=== PATIENT | female | born 1965 | race Caucasian/White ===

== ENCOUNTER 2023-09-14 10:14 | Outpatient (OUT) | payer OTHER, SELFPAY ==
--- NOTE | 2023-09-14 10:32 | CT_ITS ---
[place] [id number] Patient Name: DOROTHY ADAMS MRN: [id number] date: 1965 Sex: F Assigned Patient Location: CT Current Patient Location: CT Accession/Order Number: [id number] Exam Date: 09/14/2023 10:24 Report Date: 09/14/2023 16:25 At the request of: CARY BENTON Procedure: CT chest wo con EXAM: CT chest wo con; [id number] REASON FOR EXAM: Solitary Pulmonary Nodule R91.1 TECHNIQUE: Helical CT images of the chest were obtained without contrast. Multiplanar reformats and maximum intensity projection images were generated at the scanner. Dose reduction technique used: Automated exposure control and/or adjustment of the mA and/or kV according to patient size and/or use of iterative reconstruction technique. COMPARISON: CT chest 02/21/2023. FINDINGS: Note: Compared with contrasted CT exams, noncontrast images are less sensitive for the detection of various types of soft tissue, solid organ, and vascular pathologies. Chest: Support devices: None. Visualized Thyroid: No nodules. Chest wall: Within normal limits. Prabha/mediastinum/esophagus: No mass. Thoracic lymph nodes: No enlarged supraclavicular, mediastinal, hilar or axillary lymph nodes. Heart and vasculature: -No pericardial effusion or aortic aneurysm. -Moderate coronary artery calcifications. Visualized portions of the upper abdomen: Single benign calcified granulomatous calcification in the spleen. Musculoskeletal: No acute abnormality or suspicious osseous lesion. Lungs/airways: -Irregular nodule in the posterolateral aspect of the right upper lobe measuring 6 mm mean diameter (series 4 image 32), not significantly changed compared with 02/21/2023. -Numerous benign calcified granulomas are present. -No evidence of pneumonia. -Minimal left basilar atelectasis and/or scarring. -The central airways are patent. Pleura: No pleural effusion or pneumothorax. CT/CT chest wo con IMPRESSION: 1. Irregular 6 mm nodule in the right upper lobe is not significantly changed compared with 02/21/2023. Recommend returning to low-dose screening chest CT in 12 months. 2. No new or enlarging pulmonary nodules. Electronically authenticated by: DANO MENSAH Date: 09/14/2023 16:25
== END 2023-09-14 10:15 | disposition home or self-care (01) ==
LOC: CT 10:14
PROVIDERS: PCP Family Medicine; Visit Provider Family Medicine
DX: R91.1 Solitary pulmonary nodule (principal)
CPT/HCPCS: 71250

== ENCOUNTER 2023-10-04 09:51 | Inpatient (IN) | payer OTHER, SELFPAY ==
[2023-10-04] VITALS (31 sets, daily range): BP systolic 130–149; BP diastolic 65–85; PULSE 144–156; RESP 18–35; TEMP 36.5–38.8; O2SAT 80–97; BMI 39.1; BMI 42.4
--- NOTE | 2023-10-04 09:56 | ECG_ITS ---
The [facility] Test Date: 2023-10-04 Pat Name: DOROTHY ADAMS Department: Room: - Gender: Female Therapist: : 1965 Requested By: CARY BENTON Order Number: [id number] Reading MD: CARY BENTON Measurements Intervals [place] Rate: 156 P: 254 OR: 126 QRS: 270 QRSD: 74 T: -82 QT: 362 QTc: 450 Interpretive Statements 1320 Rapid junctional rhythm [address] depression, possible subendocardial injury 4364 Twave abnormality, possible anterolateral ischemia 4664 Twave abnormality, possible inferior ischemia 5120 Possible right ventricular hypertrophy 8003 Consistent with pulmonary disease 9150 abnormal ECG No previous ECG available for comparison Electronically Signed On 10-05-2023 6:21:53 EST by CARY BENTON
--- NOTE | 2023-10-04 09:56 | XR_ITS ---
The [address] [address] Patient Name: DOROTHY ADAMS MRN: [id number] date: 1965 Sex: F Assigned Patient Location: ER Current Patient Location: ED.MAIN Accession/Order Number: [id number] Exam Date: 10/04/2023 10:30 Report Date: 10/04/2023 10:49 At the request of: DAVID CAVANAUGH Procedure: XR chest 1V EXAM: XR chest 1V HISTORY: Weakness. COMPARISON: CT chest dated 09/14/2023. TECHNIQUE: AP erect portable chest radiograph performed. FINDINGS: The trachea is midline. Stable mild enlargement of the cardiac silhouette. Mild atheromatous calcification at the aortic arch. There are numerous small nodules scattered within the chest bilaterally, most of which are calcified on the previous CT examination of the chest. There is new mild patchy airspace disease within the right lower chest. There is no pleural effusion or pulmonary vascular congestion. There is no pneumothorax. The bony structures are unremarkable. XR/XR chest 1V IMPRESSION: New mild patchy airspace disease within the right lower chest. Numerous small nodules scattered within the chest bilaterally, most of which are calcified on the previous CT examination of the chest. Electronically authenticated by: JANET EDWARD Date: 10/04/2023 10:49
--- NOTE | 2023-10-04 09:58 | ED.GENADUL1 ---
HPI - General Adult General Chief complaint: Back Pain/Injury Stated complaint: BACK PAIN Time Seen by Provider: 10/04/23 09:52 Source: patient Mode of arrival: ambulance History of Present Illness HPI narrative: 58-year-old female presented for she's weak and couldn't get up. She was weak all night. She weighed herself on the floor about midnight and wasn't able to get herself up until about 3 AM. She got herself into a chair and spent the rest of the night in the chair and then she called the paramedics and they brought her here. She was noted to be tachycardic by the paramedics and the patient states she thinks she is dehydrated. Her whole body hurts but there was no injury. She has chronic back pain. She was noted to have a fever upon arrival. Related Data Home Medications Medication Instructions Recorded Confirmed apixaban 5 mg tablet (Eliquis) 5 mg PO Q12H 10/04/23 10/04/23 clopidogrel 75 mg tablet 75 mg PO DAILY 10/04/23 10/04/23 diclofenac sodium 75 mg 75 mg PO Q12H 10/04/23 10/04/23 tablet,delayed release digoxin 250 mcg (0.25 mg) tablet 250 mcg PO Q12H 10/04/23 10/04/23 furosemide 40 mg tablet 40 mg PO DAILY 10/04/23 10/04/23 insulin aspart U-100 100 unit/mL 1 sliding scale dose subcut DAILY 10/04/23 10/04/23 (3 mL) subcutaneous pen (Novolog FlexPen U-100 Insulin aspart) insulin glargine 100 unit/mL (3 unit subcut DAILY 10/04/23 mL) subcutaneous pen (Basaglar KwikPen U-100 Insulin) lisinopril 10 mg tablet 10 mg PO DAILY 10/04/23 10/04/23 metoprolol tartrate 25 mg tablet 25 mg PO Q12H 10/04/23 10/04/23 tizanidine 4 mg tablet 4 mg PO Q12H PRN muscle spasticity 10/04/23 10/04/23 Allergies Allergy/AdvReac Type Severity Reaction Status Date / Time Sulfa (Sulfonamide AdvReac Severe Nausea Verified 10/04/23 09:57 Antibiotics) Review of Systems ROS Narrative A ten point review of systems is negative except as noted above. Musculoskeletal Reports: back pain Exam Narrative Exam Narrative: Nurses note and vital signs reviewed and patient is not hypoxic. General: The patient appears well and in no apparent distress. Patient is resting comfortably on cart. Skin: Warm, dry, no pallor noted. There is no rash noted. Head: Normocephalic, atraumatic Eye: Normal conjunctiva, no drainage Ears, Nose, Mouth, and Throat: oral mucosa is slightly dry. Nares patent. Cardiovascular: Regular Rate and Rhythm, tachycardic Respiratory: Patient is in no distress, no accessory muscle use, lungs are clear to auscultation, no wheezing, rales or rhonchi Back: no bruise or rash. Old healed surgical scar present. GI: not tender Musculoskeletal: The patient has no evidence of calf tenderness, no pitting edema, symmetrical pulses noted bilaterally Neurological: A&O, normal speech Psychiatric: Cooperative Constitutional Vital Signs, click to edit/add: Last Vital Signs Temp 102 F H 10/04/23 09:53 Pulse 155 H 10/04/23 09:53 Resp 24 10/04/23 09:53 BP 144/65 H 10/04/23 09:53 Pulse Ox 96 10/04/23 09:53 O2 Del Method Room Air 10/04/23 09:53 Course Vital Signs Vital signs: Vital Signs Temperature 102 F H 10/04/23 09:53 Pulse Rate 155 H 10/04/23 09:53 Respiratory Rate 24 10/04/23 09:53 Blood Pressure 144/65 H 10/04/23 09:53 Pulse Oximetry 96 10/04/23 09:53 Oxygen Delivery Method Room Air 10/04/23 09:53 Temperature 102 F H 10/04/23 09:53 Pulse Rate 155 H 10/04/23 09:53 Respiratory Rate 24 10/04/23 09:53 Blood Pressure 144/65 H 10/04/23 09:53 Pulse Oximetry 96 10/04/23 09:53 Oxygen Delivery Method Room Air 10/04/23 09:53 Medical Decision Making [facility] Narrative Medical decision making narrative: pneumonia is identified with a white count of twenty-five thousand. Blood cultures were obtained and she was given IV Rocephin and Zithromax and is being admitted. Creatinine also elevated at 3.9. She is being given IV fluids and Gallegos catheter is inserted. Case discussed with Dr. Santos and the patient will be admitted. Treatment diagnosis and disposition were discussed with the patient. initial troponin elevated but this is likely due to the kidney issue. Repeat pending. Differential Diagnosis Differential Diagnosis: dehydration, rhabdomyolysis, pneumonia Lab Data Lab results reviewed: Yes I reviewed the patient's lab results Labs: Lab Results 10/04/23 10/04/23 Range/Units 10:20 10:25 WBC 24.9 H (4.0-11.0) 10^3/uL RBC 3.87 L (4.20-5.40) 10^6/uL Hgb 11.1 L (12.0-16.0) g/dL Hct 34.7 L (36.0-48.0) % MCV 89.7 (81.0-99.0) fL MCH 28.7 (26.7-34.0) pg MCHC 32.0 (29.9-35.2) g/dL RDW 16.4 H (11.0-15.0) % Plt Count 146 L (150-450) 10^3/uL MPV 11.5 (9.5-13.5) fL Seg Neuts % (Manual) 91.0 Band Neutrophils % 3.0 (0-5) % Lymphocytes % (Manual) 2.0 L (20.5-60.0) % Monocytes % (Manual) 4.0 (1.7-12.0) % Eosinophils % (Manual) 0.0 L (0.9-7.0) % Basophils % (Manual) 0.0 L (0.2-2.0) % Neutrophils # (Manual) 22.65 H (1.4-6.5) 10^3/uL Band Neutrophils # 0.7 H (0.0-0.3) 10^3/uL Lymphocytes # (Manual) 0.49 L (1.20-3.80) 10^3/uL Monocytes # (Manual) 0.99 H (0.30-0.80) 10^3/uL Eosinophils # (Manual) 0.00 (0.00-0.70) 10^3/uL Basophils # (Manual) 0.00 (0.00-0.10) 10^3/uL Anisocytosis 1+ [place] Cells 1+ Sodium 133 L (136-145) mmol/L Potassium 3.4 L (3.5-5.1) mmol/L Chloride 97 L (98-107) mmol/L Carbon Dioxide 20.4 L (21.0-32.0) mmol/L Anion Gap 19.0 BUN 43.0 H (7.0-18.0) mg/dL Creatinine 3.92 H (0.55-1.02) mg/dL Est GFR ( Amer) 14 L (>=60) Est GFR (Non-Af Amer) 12 L (>=60) BUN/Creatinine Ratio 11.0 Glucose 133 H (74-106) mg/dL Lactate 2.1 H (0.4-2.0) mmol/L Calcium 7.5 L (8.5-10.1) mg/dL Total Creatine Kinase 116 (26-192) U/L Troponin I High Sens 132.7 H* (4.0-51.3) pg/mL SARS-CoV-2 (PCR) Negative (NEGATIVE) Imaging Data Chest x-ray: Radiologist's impression: Procedure: XR chest 1V EXAM: XR chest 1V HISTORY: Weakness. COMPARISON: CT chest dated 09/14/2023. TECHNIQUE: AP erect portable chest radiograph performed. FINDINGS: The trachea is midline. Stable mild enlargement of the cardiac silhouette. Mild atheromatous calcification at the aortic arch. There are numerous small nodules scattered within the chest bilaterally, most of which are calcified on the previous CT examination of the chest. There is new mild patchy airspace disease within the right lower chest. There is no pleural effusion or pulmonary vascular congestion. There is no pneumothorax. The bony structures are unremarkable. IMPRESSION: New mild patchy airspace disease within the right lower chest. Numerous small nodules scattered within the chest bilaterally, most of which are calcified on the previous CT examination of the chest. Electronically authenticated by: JANET EDWARD Date: 10/04/2023 10:49 ECG Data Attestation: I personally reviewed and interpreted this ECG as follows: (EKG on my interpretation shows sinus tachycardia) Discharge Plan Discharge Chief Complaint: Back Pain/Injury Clinical Impression: Acute kidney injury, Pneumonia Patient Disposition: Admitted As Inpatient Time of Disposition Decision: 11:34 Condition: Fair Referrals: Paul Santos MD [Primary Care Provider] - 1 week
[2023-10-04] MEDS: ACETAMINOPHEN 325 MG TABLET 650 MG PO (10:34)
[2023-10-04] MEDS: 0.9 % SODIUM CHLORIDE 1,000 ML 1000 ML IV ×4 (10:35→18:37)
[2023-10-04 10:48] LABS: Hematocrit 34.7 % (36.0-48.0); Hemoglobin 11.1 g/dL (12.0-16.0); Mean Corpuscular Hemoglobin 28.7 pg (26.7-34.0); Mean Corpuscular Volume 89.7 fL (81.0-99.0); Mean Platelet Volume 11.5 fL (9.5-13.5); Platelet Count 146 10^3/uL (150-450); Red Blood Count 3.87 10^6/uL (4.20-5.40); Red Cell Distribution Width 16.4 % (11.0-15.0); White Blood Count 24.9 10^3/uL (4.0-11.0)
[2023-10-04 10:54] LABS: Creatine Kinase 116 U/L (26-192)
[2023-10-04 10:58] LABS: Calcium 7.5 mg/dL (8.5-10.1); Carbon Dioxide 20.4 mmol/L (21.0-32.0); Chloride 97 mmol/L (98-107); Estimated GFR (African America 14 (>=60); Estimated GFR (Non-African Ame 12 (>=60); Glucose 133 mg/dL (74-106); Potassium 3.4 mmol/L (3.5-5.1); Sodium 133 mmol/L (136-145)
[2023-10-04 10:59] LABS: Troponin I High Sensitivity 132.7 pg/mL (4.0-51.3)
[2023-10-04 11:03] LABS: Band Neutrophils Absolute 0.7 10^3/uL (0.0-0.3); Lymphocytes Absolute Manual 0.49 10^3/uL (1.20-3.80); Monocytes Absolute Manual 0.99 10^3/uL (0.30-0.80); Segmented Neut Absolute Manual 22.65 10^3/uL (1.4-6.5)
[2023-10-04 11:04] LABS: Anisocytosis 1+; Burr Cells 1+
[2023-10-04 11:25] LABS: Lactate/Lactic Acid 2.1 mmol/L (0.4-2.0)
[2023-10-04] MEDS: CEFTRIAXONE 1,000 MG in 0.9 % SODIUM CHLORIDE 50 ML 100 MG IV (11:25)
[2023-10-04 11:29] LABS: SARS-CoV-2 Ag NEGATIVE (NEGATIVE)
[2023-10-04 11:40] LABS: Bilirubin Urine NEGATIVE (NEGATIVE); Blood Urine MODERATE (NEGATIVE); Clarity Urine CLEAR (CLEAR); Color Urine YELLOW (YELLOW); Glucose Urine UA NEGATIVE (NEGATIVE); Ketones Urine NEGATIVE (NEGATIVE); Leukocyte Esterase Urine LARGE (NEGATIVE); Nitrite Urine NEGATIVE (NEGATIVE); Protein Urine 100 mg/dL (NEG/TRACE); Urobilinogen Urine 0.2 EU/dL (0.2-1.0)
[2023-10-04] MEDS: AZITHROMYCIN 500 MG in 0.9 % SODIUM CHLORIDE 250 ML 250 MG IV (11:55)
[2023-10-04 11:57] LABS: Troponin I High Sensitivity 126.9 pg/mL (4.0-51.3)
[2023-10-04 11:59] LABS: WBC Urine 75-100 #/HPF (NONE SEEN)
[2023-10-04 12:00] LABS: Bacteria Urine LARGE #/HPF (NONE SEEN); Mucus Urine NONE SEEN (NONE SEEN)
[2023-10-04 12:01] LABS: Cast Seen? NONE SEEN #/LPF (NONE SEEN); Crystals Seen? None Seen #/HPF (None Seen); Squamous Epithelial Cell Urine FEW #/LPF (NONE/RARE); Urine Culture Indicated ALREADY ORDERED
--- NOTE | 2023-10-04 12:43 | CA_ITS ---
Patient Name: DOROTHY ADAMS MR#: [id number] : 1965 Exam Date: 10/05/2023 Ordering Doctor: DR Paul Santos . ECHOCARDIOGRAM REPORT PROCEDURE: CA ECHO DOPPLER COMPLETE INDICATIONS: Dyspnea, tachycardia-resolved, hypertension, diabetes COMPARISON: None. DESCRIPTION: COMPLETE ECHOCARDIOGRAM Real-time transthoracic echocardiography with 2D, M-mode, spectral and color flow Doppler performed. QUALITY: Technical quality was good. LEFT VENTRICLE: Normal chamber size. Mild left ventricular hypertrophy. LV EF: Global left ventricular systolic function is normal; visually estimated ejection fraction 60 to 65%. No obvious wall motion abnormalities. DIASTOLIC: Grade II, moderate diastolic dysfunction. ATRIAL SEPTUM: Visually appears intact. LEFT ATRIUM: Normal chamber size. RIGHT ATRIUM: Mild dilatation. RIGHT VENTRICLE: Normal chamber size. Systolic function is difficult to assess but appears reduced. TRICUSPID VALVE: Normal mobility and thickness. Mild regurgitation. Doppler studies reveal mildly (35-45) elevated right sided pressures. RVSP 43 mmHg MITRAL VALVE: Normal mobility and thickness. Moderate mitral annular calcification. Trivial mitral regurgitation. AORTIC VALVE: Normal trileaflet appearance. Mildly calcified aortic valve. Doppler velocity suggests no significant aortic valve stenosis. DVI 0.5, ANGELICA 2.0 cm2. No aortic regurgitation. AORTIC ROOT: Normal diameter and appearance. PULMONIC VALVE: Normal thickness and mobility. No stenosis. Trivial regurgitation. PERICARDIUM: No evidence of pericardial effusion. IVC: IVC is dilated (2.5 cm) with no collapse. CONCLUSION: 1. Global left ventricular systolic function is normal; visually estimated ejection fraction is 60 to 65% 2. Mildly increased left ventricular wall thickness 3. The right ventricle is normal in size with reduced systolic function 4. The right atrium is enlarged 5. Mild tricuspid regurgitation; mildly elevated right ventricular systolic pressure 6. E/E' consistent with volume overload Adult Echocardiography Procedure Report Left Ventricle LVEDD (3.7 - 5.6 cm): 4.68 cm LVESD (2.2 - 4.0 cm): 3.08 cm LVIVS thickness (0.6 - 1.2 cm): 1.19 cm LVPW thickness (0.5 - 1.0 cm): 1.22 cm e': 0.07 m/s E - e': 21.77 LVOT Max Gradient: 3.02 mm[Hg], 2.66 mm[Hg], 2.88 mm[Hg] LVOT Area (cm2): 0.83 m/s, 0.87 m/s Peak Velocity (LVOT): 0.82 m/s, 0.85 m/s, 0.87 m/s Mean Velocity (LVOT): 0.63 m/s LVOT Diameter 2.14 cm Left Atrium LA Volume Index (2D A2C): 29.38 ml/m2 Left Atrium Systolic Dimension: 4.08 cm Mitral Valve MV E to A Ratio: 1.86 Mitral Valve A-Wave Peak Velocity: 0.87 m/s Mitral Valve E-Wave Peak Velocity: 1.61 m/s Right Ventricle Aorta AO Root Diam: 3.44 cm Ascending Ao Diam: 2.26 cm Aortic Valve AoV Area (Peak Evan): 1.84 cm2, 1.80 cm2, 1.92 cm2, 1.92 cm2 AoV Area (VTI): 1.99 cm2, 1.87 cm2 Peak Velocity(Antegrade Flow): 1.62 m/s Peak Gradient(Antegrade Flow): 10.55 mm[Hg] Mean Velocity(Antegrade Flow): 1.09 m/s Mean Gradient(Antegrade Flow): 5.42 mm[Hg] Velocity Time Integral: 30.41 cm Tricuspid Valve Peak Velocity (Regurgitant Flow): 2.71 m/s Pulmonic Valve Peak Velocity: 0.86 m/s Peak Gradient: 2.96 mm[Hg], 2.96 mm[Hg] Right Atrium Right Atrium Systolic Pressure: 49.49 ml, 49.49 ml Dictated by: Cristian Elliott M.D. on 10/08/2023 at 13:10 Approved by: Cristian Elliott M.D. on 10/08/2023 at 13:17
[2023-10-04 12:52] LABS: PCO2 VBG 29.2 mmHg (40.0-52.0); pH VBG 7.427 (7.330-7.430)
[2023-10-04 13:10] LABS: Lactate/Lactic Acid 1.5 mmol/L (0.4-2.0)
[2023-10-04 13:31] LABS: Magnesium 1.5 mg/dL (1.8-2.4)
[2023-10-04 13:44] LABS: Digoxin 0.8 ng/mL (0.9-2.0)
[2023-10-04 13:48] LABS: Troponin I High Sensitivity 121.7 pg/mL (4.0-51.3)
[2023-10-04 15:29] LABS: SARS-CoV-2 NAA NOT DETECTED (NOT DETECTE)
[2023-10-04] MEDS: 0.9 % SODIUM CHLORIDE 1,000 ML 125 ML IV (16:15)
[2023-10-04] MEDS: LEVOFLOXACIN IN DEXTROSE 5 % 750 MG/150 ML IV.SOLN 100 MG IV (16:15)
[2023-10-04 16:19] LABS: Troponin I High Sensitivity 96.3 pg/mL (4.0-51.3)
[2023-10-04 16:21] LABS: Glucometer 150 mg/dL (74-106)
[2023-10-04] MEDS: INSULIN ASPART 300 UNIT/3 ML PEN SUBQ (16:26)
[2023-10-04 17:14] LABS: Anion Gap 15.9; BUN Creatinine Ratio 12.2; Carbon Dioxide 22.5 mmol/L (21.0-32.0); Chloride 100 mmol/L (98-107); Estimated GFR (African America 17 (>=60); Estimated GFR (Non-African Ame 14 (>=60); Glucose 163 mg/dL (74-106); Potassium 3.4 mmol/L (3.5-5.1); Sodium 135 mmol/L (136-145)
[2023-10-04 17:32] LABS: Creatine Kinase 121 U/L (26-192); Creatine Kinase MB 0.56 ng/mL (<=3.60)
[2023-10-04 17:33] LABS: Myoglobin 285 ng/mL (9-82); Troponin I High Sensitivity 88.4 pg/mL (4.0-51.3)
--- NOTE | 2023-10-04 18:03 | P.HP_ITS ---
H&P: HPI History of Present Illness Chief complaint: BACK PAIN/PNEUMONIA/ACUTE KIDNEY INJURY Narrative: Patient presented to the emergency room with fever, respiratory distress. Found to have right lower lobe pneumonia, sinus tachycardia with acute renal failure. Patient admitted to the [facility] floor for work-up and treatment of same Review of Systems ROS Constitutional Reports: fever and chills Eyes Denies: change in vision Ears, nose, mouth, and throat Denies: throat pain Cardiovascular Reports: palpitations and shortness of breath with exertion Respiratory Reports: shortness of breath, cough and wheezing Gastrointestinal Denies: abdominal pain Genitourinary Reports: painful urination Musculoskeletal Reports: back pain PFSH [facility] Medical History (Updated 10/04/23 @ 13:39 by Modesta Hendrix RN) Arthritis ?M19.90 - Unspecified osteoarthritis, unspecified site (ICD-10) Atrial fibrillation ?I48.91 - Unspecified atrial fibrillation (ICD-10) Diabetes ?E11.9 - Type 2 diabetes mellitus without complications (ICD-10) Hypertension ?I10 - Essential (primary) hypertension (ICD-10) Social History (Updated 10/04/23 @ 13:39 by Modesta Hendrix RN) Smoking status: Heavy tobacco smoker Meds Home Medications and Allergies Home Medications Medication Instructions Recorded Confirmed Type apixaban 5 mg tablet (Eliquis) 5 mg PO Q12H 10/04/23 10/04/23 History clopidogrel 75 mg tablet 75 mg PO DAILY 10/04/23 10/04/23 History diclofenac sodium 75 mg 75 mg PO Q12H 10/04/23 10/04/23 History tablet,delayed release digoxin 250 mcg (0.25 mg) tablet 250 mcg PO .QD 10/04/23 10/04/23 History furosemide 40 mg tablet 40 mg PO DAILY 10/04/23 10/04/23 History insulin aspart U-100 100 unit/mL 1 sliding scale dose subcut DAILY 10/04/23 10/04/23 History (3 mL) subcutaneous pen (Novolog FlexPen U-100 Insulin aspart) insulin glargine 100 unit/mL (3 46 unit subcut BID 10/04/23 10/04/23 History mL) subcutaneous pen (Basaglar KwikPen U-100 Insulin) lisinopril 10 mg tablet 10 mg PO DAILY 10/04/23 10/04/23 History metoprolol tartrate 25 mg tablet 25 mg PO Q12H 10/04/23 10/04/23 History tizanidine 4 mg tablet 4 mg PO Q12H PRN muscle spasticity 10/04/23 10/04/23 History Allergies Allergy/AdvReac Type Severity Reaction Status Date / Time Sulfa (Sulfonamide AdvReac Severe Nausea Verified 10/04/23 09:57 Antibiotics) Exam Constitutional Vital Signs, click to edit/add: Last Vital Signs Temp 98.6 F 10/04/23 14:08 Pulse 147 H 10/04/23 17:58 Resp 20 10/04/23 14:08 BP 136/76 10/04/23 14:08 Pulse Ox 90 L 10/04/23 14:08 O2 Del Method Room Air 10/04/23 14:08 Documenting provider has reviewed patient's vital signs: yes Common normals: apparent distress (Mild respiratory distress) HENMT Common normals: oral mucous membranes not moist Chest Common normals: inspection of chest normal Respiratory Common normals: abnormal respiratory effort (Mild respiratory distress with mild conversational dyspnea) Auscultation: rhonchi and egophony (Right lower lobe) Cardio Common normals: regular rhythm; irregular rate Rate: tachycardic Results Labs Labs: Short CBC 10/04/23 Range/Units 10:25 WBC 24.9 H (4.0-11.0) 10^3/uL Hgb 11.1 L (12.0-16.0) g/dL Hct 34.7 L (36.0-48.0) % Plt Count 146 L (150-450) 10^3/uL BMP 10/04/23 10/04/23 10:25 16:59 Sodium 133 L 135 L Potassium 3.4 L 3.4 L Chloride 97 L 100 Carbon Dioxide 20.4 L 22.5 BUN 43.0 H 42.0 H Creatinine 3.92 H 3.44 H Glucose 133 H 163 H Calcium 7.5 L 7.0 L Cardiac Enzymes 10/04/23 10/04/23 Range/Units 10:25 16:59 Total Creatine Kinase 116 121 (26-192) U/L CK-MB (CK-2) 0.56 (<=3.60) ng/mL Urine 10/04/23 Range/Units 11:25 Urine Color Yellow (YELLOW) Urine Clarity Clear (CLEAR) Urine pH 6.0 (5.0-9.0) Ur Specific [place] 1.020 (1.005-1.025) Urine Protein 100 A (NEG/TRACE) mg/dL Urine Glucose (UA) Negative (NEGATIVE) mg/dL ABG ABG results: 10/04/23 12:47 VBG pH 7.427 VBG pCO2 29.2 L Assessment and Plan Assessment and Plan (1) Acute kidney injury: (2) Pneumonia: Plan Fever, sinus tachycardia, respiratory distress, acute kidney injury, leukocytosis, thrombocytopenia, hyponatremia, positive lactate, elevated troponin secondary to right lower lobe pneumonia complicated by acute UTI resulting in severe sepsis with multisystem organ dysfunction(Cardiac, renal, heme). IV fluids for the severe sepsis and acute renal failure. She does not have hyperkalemia. Continue to monitor closely. IV antibiotics for the pneumonia and UTI. High-sensitivity troponin has improved with admission of fluids. Lactate also improved. Urine culture sputum culture blood cultures are pending Right lower lobe pneumonia-see treatment above, change patient to Xopenex Acute UTI-culture pending Acute kidney injury-try to review old labs. To see what her baseline is. Improved somewhat from admission. Continue fluid boluses. History of hypertension-continue with regular medications but increase metoprolol. Blood pressure is elevated at times. History of heart failure-BNP likely can be elevated secondary to BUN and creatinine. Will check echocardiogram. Coronary artery disease-no chest pain. High-sensitivity troponin again likely elevated secondary to the creatinine being elevated and her tachycardia with possible tachycardic demand ischemia. Low back pain-continue with medications except the diclofenac secondary to renal failure Thrombocytopenia likely secondary to stress reaction from the above Hypokalemia we will hold off on supplementing at this time concern for with creatinine being elevated that her potassium started to creep up. Hypocalcemia-consider supplementation Morbid obesity-diet management The severity of illness is outlined above with sepsis and multisystem organ dysfunction secondary to pneumonia and UTI-maintain patient as inpatient status.
[2023-10-04] MEDS: DIGOXIN 500 MCG/2 ML AMPUL 125 MCG IV (18:37)
[2023-10-04] MEDS: 0.9 % SODIUM CHLORIDE 1,000 ML 999 ML IV (20:28)
[2023-10-04 20:47] LABS: Glucometer 199 mg/dL (74-106)
[2023-10-04] MEDS: MAGNESIUM OXIDE 400 MG TABLET PO (21:30)
[2023-10-04] MEDS: APIXABAN 5 MG TABLET PO (21:30)
[2023-10-04] MEDS: CALCIUM CARBONATE 500 MG (200MG ELEMENTAL) TAB CHEW PO (21:30)
[2023-10-04] MEDS: METOPROLOL TARTRATE 50 MG TABLET PO (21:30)
[2023-10-04 21:36] LABS: A. calcoaceticus-baumannii Cpx NOT DETECTED (NOT DETECTE); Bacteroides fragilis NOT DETECTED (NOT DETECTE); Candida albicans NOT DETECTED (NOT DETECTE); Candida auris NOT DETECTED (NOT DETECTE); Candida glabrata NOT DETECTED (NOT DETECTE); Candida krusei NOT DETECTED (NOT DETECTE); Candida parapsilosis NOT DETECTED (NOT DETECTE); Candida tropicalis NOT DETECTED (NOT DETECTE); Cryptococcus neoformans/gattii NOT DETECTED (NOT DETECTE); Enterobacter cloacae complex NOT DETECTED (NOT DETECTE); Enterococcus faecalis NOT DETECTED (NOT DETECTE); Enterococcus faecium NOT DETECTED (NOT DETECTE); Haemophilus influenzae NOT DETECTED (NOT DETECTE); Klebsiella aerogenes NOT DETECTED (NOT DETECTE); Klebsiella pneumoniae group NOT DETECTED (NOT DETECTE); Listeria monocytogenes NOT DETECTED (NOT DETECTE); Neisseria meningitidis NOT DETECTED (NOT DETECTE); Proteus spp. NOT DETECTED (NOT DETECTE); Pseudomonas aeruginosa NOT DETECTED (NOT DETECTE); Salmonella spp. NOT DETECTED (NOT DETECTE); Serratia marcescens NOT DETECTED (NOT DETECTE); Staphylococcus epidermidis NOT DETECTED (NOT DETECTE); Staphylococcus lugdunensis NOT DETECTED (NOT DETECTE); Staphylococcus spp. NOT DETECTED (NOT DETECTE); Stenotrophomonas maltophilia NOT DETECTED (NOT DETECTE); Streptococcus agalactiae NOT DETECTED (NOT DETECTE); Streptococcus pneumoniae NOT DETECTED (NOT DETECTE); Streptococcus pyogenes NOT DETECTED (NOT DETECTE); Streptococcus spp. NOT DETECTED (NOT DETECTE)
--- NOTE | 2023-10-04 22:21 | ECG_ITS ---
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1965 Requested By: CARY BENTON Order Number: [id number] Reading MD: CARY BENTON Measurements Intervals [place] Rate: 155 P: IA: QRS: -60 QRSD: 79 T: 58 QT: 306 QTc: 492 Interpretive Statements ATRIAL FLUTTER/TACHYCARDIA WITH RAPID VENTRICULAR RESPONSE MARKED LEFT AXIS DEVIATION [QRS AXIS < -30] PATTERN CONSISTENT WITH PULMONARY DISEASE POSSIBLE RIGHT VENTRICULAR CONDUCTION DELAY [RSR (QR) IN V1/V2] POSSIBLE SEPTAL MYOCARDIAL INFARCTION [30 ms Q WAVE IN V1/V2], OF INDETERMINATE AGE Compared to ECG 10/04/2023 09:58:45 Left-axis deviation now present Myocardial infarct finding now present Junctional rhythm no longer present ST (T wave) deviation no longer present Possible ischemia no longer present Electronically Signed On 10-05-2023 6:22:07 EST by CARY BENTON
--- NOTE | 2023-10-04 22:21 | XR_ITS ---
The [address] [address] Patient Name: DOROTHY ADAMS MRN: [id number] date: 1965 Sex: F Assigned Patient Location: Current Patient Location: Accession/Order Number: [id number] Exam Date: 10/04/2023 22:43 Report Date: 10/04/2023 23:26 At the request of: SAVANNA BELLO Procedure: XR chest 1V EXAM: XR chest 1V REASON FOR EXAM: Female, 58 years, Crackles, Tachycardia. TECHNIQUE: A single AP view of the chest is performed. COMPARISON: 10/04/2023. FINDINGS: Cardiac monitoring leads overlie the chest. Tiny calcified pulmonary nodules are unchanged. No definite focal consolidation. Normal pleura. There is mild cardiomegaly. Normal mediastinum and diam[place]. Normal visualized pulmonary arteries. There is calcification of the aortic knob. Normal visualized thoracic spine. Normal visualized ribs, clavicles, and shoulders. There is no demonstrated abnormality of the visualized soft tissue structures of the upper abdomen. XR/XR chest 1V IMPRESSION: Calcified tiny pulmonary nodules. Mild cardiomegaly. Electronically authenticated by: JEANMARIE JORDAN Date: 10/04/2023 23:26
[2023-10-04] MEDS: METOPROLOL TARTRATE 5 MG/5 ML VIAL IVP (22:50)
--- NOTE | 2023-10-04 23:03 | PC.NURSE ---
Pt's heart rate is maintaining above 150. Pt has crackles, and +2 pitting edema noted on assessment. Emilee Ortiz notified of patient's condition. See new orders from provider.
--- NOTE | 2023-10-04 23:31 | PC.NURSE ---
Patient transferred to ICU at 2321 due to change in condition. Report given to Star. Telehospitalist aware of situation.
[2023-10-04 23:39] LABS: Glucometer 190 mg/dL (74-106)
[2023-10-04 23:44] LABS: Enterobacterales DETECTED (NOT DETECTE)
[2023-10-05] VITALS (51 sets, daily range): BP systolic 81–121; BP diastolic 47–73; PULSE 71–154; RESP 18–31; TEMP 36.6–37.1; O2SAT 86–994
[2023-10-05] MEDS: ACETAMINOPHEN 500 MG TABLET 1000 MG PO ×2 (00:01→15:25)
[2023-10-05] MEDS: dilTIAZem HCL 125 MG in 0.9 % SODIUM CHLORIDE 100 ML IV (01:45)
[2023-10-05] MEDS: LEVALBUTEROL HCL 0.63 MG/3 ML VIAL.NEB IH ×4 (04:11→23:07)
[2023-10-05] MEDS: IPRATROPIUM BROMIDE 0.5 MG/2.5 ML VIAL.NEB IH ×4 (04:11→23:09)
[2023-10-05 04:26] LABS: Basophils Absolute Auto 0.1 10^3/uL (0.0-0.1); Basophils Percent Auto 0.3 % (0.2-2.0); Eosinophils Percent Auto 0.1 % (0.9-7.0); Hematocrit 33.2 % (36.0-48.0); Hemoglobin 10.6 g/dL (12.0-16.0); Immature Granulocytes Abs Auto 0.09 10^3/uL (0.00-0.03); Immature Granulocytes Pct Auto 0.5 % (0.0-0.5); Lymphocytes Absolute Auto 0.9 10^3/uL (1.2-3.8); Mean Corpuscular HGB Conc 31.9 g/dL (29.9-35.2); Mean Corpuscular Hemoglobin 28.8 pg (26.7-34.0); Mean Corpuscular Volume 90.2 fL (81.0-99.0); Mean Platelet Volume 11.4 fL (9.5-13.5); Monocytes Percent Auto 5.8 % (1.7-12.0); Neutrophils Absolute Auto 15.1 10^3/uL (1.4-6.5); Neutrophils Percent Auto 88.3 % (43.0-75.0); Platelet Count 110 10^3/uL (150-450); Red Blood Count 3.68 10^6/uL (4.20-5.40); Red Cell Distribution Width 16.8 % (11.0-15.0); White Blood Count 17.1 10^3/uL (4.0-11.0)
[2023-10-05 04:56] LABS: Alanine Aminotransferase 13 U/L (14-59); Albumin Level 1.8 g/dL (3.4-5.0); Alkaline Phosphatase 122 U/L (46-116); Anion Gap 14.1; Aspartate Amino Transferase 25 U/L (15-37); BUN Creatinine Ratio 12.9; Bilirubin Total 0.6 mg/dL (0.2-1.0); Calcium 7.5 mg/dL (8.5-10.1); Carbon Dioxide 20.4 mmol/L (21.0-32.0); Chloride 101 mmol/L (98-107); Estimated GFR (African America 19 (>=60); Estimated GFR (Non-African Ame 16 (>=60); Glucose 163 mg/dL (74-106); Magnesium 1.7 mg/dL (1.8-2.4); Potassium 3.5 mmol/L (3.5-5.1); Sodium 132 mmol/L (136-145); Total Protein 5.8 g/dL (6.4-8.2)
[2023-10-05 04:58] LABS: Albumin Globulin Ratio 0.5; Troponin I High Sensitivity 73.1 pg/mL (4.0-51.3)
[2023-10-05] MEDS: CALCIUM CARBONATE 500 MG (200MG ELEMENTAL) TAB CHEW PO ×3 (05:18→21:18)
[2023-10-05] MEDS: 0.9 % SODIUM CHLORIDE 1,000 ML 125 ML IV ×3 (05:18→21:16)
--- NOTE | 2023-10-05 06:36 | ECG_ITS ---
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
--- NOTE | 2023-10-05 07:28 | US_ITS ---
The [address] [address] Patient Name: DOROTHY ADAMS MRN: [id number] date: 1965 Sex: F Assigned Patient Location: ICU Current Patient Location: ICU Accession/Order Number: [id number] Exam Date: 10/05/2023 08:40 Report Date: 10/05/2023 11:53 At the request of: CARY BENTON Procedure: US renal bladder EXAM: US renal bladder INDICATION: ARF - Urgent so read faster COMPARISON: Noncontrast CT of the abdomen and pelvis 04/27/2022 TECHNIQUE: Bilateral renal perdomo scale and color Doppler imaging with evaluation of the urinary bladder. FINDINGS: Evaluation limited secondary to patient body habitus and overlying bowel gas. RIGHT KIDNEY: 13.0 x 6.9 x 6.6 cm. No hydronephrosis or significant cortical atrophy. LEFT KIDNEY: 10.3 x 4.8 x 5.5 cm. No hydronephrosis. Mild diffuse cortical atrophy. Color Doppler to both kidneys. BLADDER: Urinary bladder largely collapsed limiting evaluation of ureteral jets. Prevoid volume: 21 cc. Post void volume 0 cc US/US renal bladder IMPRESSION: No gross findings of hydronephrosis. No urinary bladder retention. Electronically authenticated by: RICARDO BARRAZA Date: 10/05/2023 11:53
--- NOTE | 2023-10-05 07:35 | P.PN_ITS ---
Progress Note: Subjective Subjective Interval history: Feels better this morning. Up in chair currently. Looks better than last night as well. Less respiratory distress Exam Constitutional Vital Signs, click to edit/add: Last Vital Signs Temp 98.2 F 10/05/23 06:15 Pulse 89 10/05/23 06:15 Resp 20 10/05/23 06:15 BP 112/55 10/05/23 06:15 Pulse Ox 91 L 10/05/23 06:15 O2 Del Method Nasal Cannula 10/05/23 06:15 O2 Flow Rate 2 10/05/23 04:11 FiO2 2 10/05/23 06:15 Documenting provider has reviewed patient's vital signs: yes Common normals: apparent distress (Mild respiratory distress) HENMT Common normals: oral mucous membranes not moist Chest Common normals: inspection of chest normal Respiratory Common normals: abnormal respiratory effort (Mild respiratory distress with mild conversational dyspnea) Auscultation: rhonchi (Better air exchange today.) and egophony (Right lower lobe) Cardio Common normals: regular rate; irregular rhythm Rate: regular rate Rhythm: abnormal rhythm Extremity Other: 1+ edema bilateral lower extremities which is normal for her Progress Note: Objective Labs Labs: Short CBC 10/04/23 10/05/23 Range/Units 10:25 03:53 WBC 24.9 H 17.1 H (4.0-11.0) 10^3/uL Hgb 11.1 L 10.6 L (12.0-16.0) g/dL Hct 34.7 L 33.2 L (36.0-48.0) % Plt Count 146 L 110 L (150-450) 10^3/uL BMP 10/04/23 10/04/23 10/05/23 10:25 16:59 03:53 Sodium 133 L 135 L 132 L Potassium 3.4 L 3.4 L 3.5 Chloride 97 L 100 101 Carbon Dioxide 20.4 L 22.5 20.4 L BUN 43.0 H 42.0 H 40.0 H Creatinine 3.92 H 3.44 H 3.09 H Glucose 133 H 163 H 163 H Calcium 7.5 L 7.0 L 7.5 L Cardiac Enzymes 10/04/23 10/04/23 Range/Units 10:25 16:59 Total Creatine Kinase 116 121 (26-192) U/L CK-MB (CK-2) 0.56 (<=3.60) ng/mL Liver Function 10/05/23 Range/Units 03:53 Total Bilirubin 0.6 (0.2-1.0) mg/dL AST 25 (15-37) U/L ALT 13 L (14-59) U/L Alkaline Phosphatase 122 H (46-116) U/L Albumin 1.8 L (3.4-5.0) g/dL Urine 10/04/23 Range/Units 11:25 Urine Color Yellow (YELLOW) Urine Clarity Clear (CLEAR) Urine pH 6.0 (5.0-9.0) Ur Specific Vaughn 1.020 (1.005-1.025) Urine Protein 100 A (NEG/TRACE) mg/dL Urine Glucose (UA) Negative (NEGATIVE) mg/dL Progress Note: A&P Assessment and Plan (1) Acute kidney injury: (2) Pneumonia: Plan Fever, sinus tachycardia, respiratory distress, acute kidney injury, leukocytosis, thrombocytopenia, hyponatremia, positive lactate, elevated troponin secondary to right lower lobe pneumonia complicated by acute UTI resulting in severe sepsis with multisystem organ dysfunction(Cardiac, renal, heme). Patient given multiple fluid boluses yesterday. Heart rate not responding. Blood pressure remained stable. Once fluid resuscitation completed for treatment of her sepsis, without improving heart rate patient was placed on Cardizem drip. Heart rate is improved since that time. We will wean Cardizem drip today and convert to oral Cardizem. Beta-blockers were increased dose yesterday. Check on echocardiogram Sepsis secondary to Klebsiella and possible Enterobacter-this is based on genetic markers from blood cultures. Likely just the Klebsiella, and past have noted Enterobacter positive as a cross sensitivity with final culture results being just the Klebsiella-maintain current antibiotics as leukocytosis is improving Elevated high-sensitivity troponin troponin likely from demand ischemia from the tachycardia. Improving. Check on echocardiogram Right lower lobe pneumonia-see treatment above, change patient to Xopenex - lungs are some better today. Acute hypoxia-this is possibly secondary to the pneumonia and fluid resuscitation but also a degree of sleep apnea. Try to wean off of supplemental oxygen today Acute UTI-culture pending Acute kidney injury-creatinine back in January of this year was 1.08. Creatinine function is improved today. We will maintain fluid resuscitation with continuous IV fluids. History of hypertension-continue with regular medications but increase metoprolol. Blood pressure is elevated at times. History of heart failure-BNP likely can be elevated secondary to BUN and creatinine. Will check echocardiogram. Atrial fibrillation with rapid ventricular response-improved with Cardizem drip. Already on anticoagulants Coronary artery disease-no chest pain. High-sensitivity troponin again likely elevated secondary to the creatinine being elevated and her tachycardia with possible tachycardic demand ischemia. Low back pain-continue with medications except the diclofenac secondary to renal failure Thrombocytopenia likely secondary to stress reaction from the above Hypokalemia-resolved IDDM-insulin sliding scale, restart her home insulin regime but at a lower dose. She was up to 46 units twice daily - start with 30 units twice daily Hyponatremia secondary to the dehydration. Somewhat down today but likely related to fluids. Continue to monitor Iron deficiency anemia-monitor daily, hemoglobin down somewhat today, not as much as would expect for the amount of fluid resuscitation she received yesterday, continue to monitor Hypocalcemia-improved [id number] Morbid obesity-diet management Severe protein calorie malnutrition with severe hypoalbuminemia-supplement, improving protein likely to improve peripheral edema The severity of illness is outlined above with sepsis and multisystem organ dysfunction secondary to pneumonia and UTI-maintain patient as inpatient status.
[2023-10-05 08:04] LABS: Glucometer 166 mg/dL (74-106)
[2023-10-05] MEDS: DILTIAZEM HCL 60 MG TABLET PO ×4 (08:16→21:18)
[2023-10-05] MEDS: INSULIN ASPART 300 UNIT/3 ML PEN SUBQ ×5 (08:22→21:18)
[2023-10-05] MEDS: DIGOXIN 125 MCG TABLET 250 MCG PO (09:58)
[2023-10-05] MEDS: LISINOPRIL 10 MG TABLET PO (09:58)
[2023-10-05] MEDS: MAGNESIUM OXIDE 400 MG TABLET PO ×2 (09:58→21:18)
[2023-10-05] MEDS: CLOPIDOGREL BISULFATE 75 MG TABLET PO (09:58)
[2023-10-05] MEDS: APIXABAN 5 MG TABLET PO ×2 (09:58→21:17)
[2023-10-05] MEDS: METOPROLOL TARTRATE 50 MG TABLET PO ×2 (10:01→21:18)
[2023-10-05] MEDS: CEFTRIAXONE 1,000 MG in 0.9 % SODIUM CHLORIDE 50 ML 100 MG IV (10:05)
[2023-10-05] MEDS: PANTOPRAZOLE SODIUM 40 MG VIAL IV (10:05)
[2023-10-05] MEDS: INSULIN DETEMIR 300 UNIT/3 ML INSULN.PEN 30 UNIT SUBQ ×2 (10:09→21:17)
[2023-10-05 12:13] LABS: CTX-M NOT DETECTED (NOT DETECTE); IMP NOT DETECTED (NOT DETECTE); KPC NOT DETECTED (NOT DETECTE); NDM NOT DETECTED (NOT DETECTE); mcr-1 NOT DETECTED (NOT DETECTE)
[2023-10-05 12:14] LABS: OXA-48-like NOT DETECTED (NOT DETECTE); VIM NOT DETECTED (NOT DETECTE)
[2023-10-05 12:45] LABS: Glucometer 162 mg/dL (74-106)
[2023-10-05 16:37] LABS: Glucometer 234 mg/dL (74-106)
[2023-10-05] MEDS: PROSTAT 15 GM PROTEIN/100 CAL 30 ML LIQUID PACKET PO (21:17)
[2023-10-05] MEDS: ENSURE HP 237 ML LIQUID PO (21:18)
[2023-10-05 21:25] LABS: Glucometer 222 mg/dL (74-106)
[2023-10-06] VITALS (111 sets, daily range): BP systolic 106–140; BP diastolic 61–71; PULSE 68–101; RESP 0–28; TEMP 37–37.4; O2SAT 92–96
[2023-10-06] MEDS: ACETAMINOPHEN 500 MG TABLET 1000 MG PO ×2 (04:55→20:08)
[2023-10-06 05:26] LABS: Basophils Absolute Auto 0.1 10^3/uL (0.0-0.1); Basophils Percent Auto 0.4 % (0.2-2.0); Eosinophils Absolute Auto 0.1 10^3/uL (0.0-0.7); Eosinophils Percent Auto 0.5 % (0.9-7.0); Hematocrit 31.9 % (36.0-48.0); Hemoglobin 10.7 g/dL (12.0-16.0); Immature Granulocytes Abs Auto 0.08 10^3/uL (0.00-0.03); Immature Granulocytes Pct Auto 0.6 % (0.0-0.5); Lymphocytes Absolute Auto 0.7 10^3/uL (1.2-3.8); Lymphocytes Percent Auto 5.7 % (20.5-60.0); Mean Corpuscular HGB Conc 33.5 g/dL (29.9-35.2); Mean Corpuscular Hemoglobin 29.6 pg (26.7-34.0); Mean Corpuscular Volume 88.4 fL (81.0-99.0); Mean Platelet Volume 11.5 fL (9.5-13.5); Monocytes Absolute Auto 0.8 10^3/uL (0.3-0.8); Monocytes Percent Auto 6.2 % (1.7-12.0); Neutrophils Absolute Auto 11.3 10^3/uL (1.4-6.5); Neutrophils Percent Auto 86.6 % (43.0-75.0); Platelet Count 136 10^3/uL (150-450); Red Blood Count 3.61 10^6/uL (4.20-5.40)
[2023-10-06 05:34] LABS: Alanine Aminotransferase 24 U/L (14-59); Albumin Globulin Ratio 0.4; Albumin Level 1.7 g/dL (3.4-5.0); Alkaline Phosphatase 124 U/L (46-116); Anion Gap 15.4; Aspartate Amino Transferase 26 U/L (15-37); BUN Creatinine Ratio 16.7; Bilirubin Total 0.4 mg/dL (0.2-1.0); Calcium 7.7 mg/dL (8.5-10.1); Carbon Dioxide 18.2 mmol/L (21.0-32.0); Chloride 99 mmol/L (98-107); Estimated GFR (African America 21 (>=60); Estimated GFR (Non-African Ame 18 (>=60); Globulin 4.1 g/dL; Glucose 174 mg/dL (74-106); Magnesium 1.9 mg/dL (1.8-2.4); Potassium 3.6 mmol/L (3.5-5.1); Sodium 129 mmol/L (136-145); Total Protein 5.8 g/dL (6.4-8.2)
[2023-10-06 06:10] LABS: Digoxin 1.2 ng/mL (0.9-2.0)
[2023-10-06] MEDS: CALCIUM CARBONATE 500 MG (200MG ELEMENTAL) TAB CHEW PO ×3 (06:39→21:31)
[2023-10-06] MEDS: DILTIAZEM HCL 60 MG TABLET PO ×4 (06:39→21:31)
[2023-10-06] MEDS: 0.9 % SODIUM CHLORIDE 1,000 ML 125 ML IV ×2 (06:41→08:58)
[2023-10-06] MEDS: PANTOPRAZOLE SODIUM 40 MG VIAL IV (08:00)
[2023-10-06] MEDS: PROSTAT 15 GM PROTEIN/100 CAL 30 ML LIQUID PACKET PO ×2 (08:00→21:31)
[2023-10-06] MEDS: MAGNESIUM OXIDE 400 MG TABLET PO ×2 (08:01→21:31)
[2023-10-06] MEDS: CLOPIDOGREL BISULFATE 75 MG TABLET PO (08:01)
[2023-10-06] MEDS: DIGOXIN 125 MCG TABLET 250 MCG PO (08:01)
[2023-10-06] MEDS: APIXABAN 5 MG TABLET PO ×2 (08:01→21:32)
[2023-10-06] MEDS: LISINOPRIL 10 MG TABLET PO (08:02)
[2023-10-06] MEDS: METOPROLOL TARTRATE 50 MG TABLET PO ×2 (08:05→21:35)
[2023-10-06] MEDS: INSULIN DETEMIR 300 UNIT/3 ML INSULN.PEN 30 UNIT SUBQ ×2 (08:08→21:42)
--- NOTE | 2023-10-06 08:10 | PM.PN ---
Progress Note: Subjective Subjective Interval history: patient is sitting up in recliner in room, she reports she is feeling better than yesterday. She states that she did not get much rest last night so feels a little tired today but overall reports that herredness of breath has improved. she denies fevers chills nausea vomiting or diarrhea. Exam Narrative Exam Narrative: General: Patient is alert, and oriented to person, place and time with normal affect, proper hygiene, morbid obesity Skin: no visible rashes, or ulcers Head: atraumatic, acephalic Eyes: PERRLA, no nystagmus present, conjunctiva clear, no scleral icterus Ears: normal gross auditory acuity Nose: symmetric, no discharge, no maxillary or frontal sinus tenderness Heart: Normal rate and rhythm, no murmurs/rubs/gallops Lungs: diminished breath sounds all lung paula Abdomen: Normal audible bowel sounds, no distension, No palpable masses, no organomegaly, no rebound/guarding/ or rigidity Neuro: CN II-X grossly intact, normal sensation upper and lower extremities Constitutional Vital Signs, click to edit/add: Last Vital Signs Temp 98.7 F 10/06/23 06:12 Pulse 70 10/06/23 07:53 Resp 20 10/06/23 06:12 BP 106/71 10/06/23 06:12 Pulse Ox 92 L 10/06/23 06:12 O2 Del Method Room Air 10/06/23 06:12 O2 Flow Rate 2 10/05/23 04:11 FiO2 2 10/05/23 06:15 Progress Note: Objective Labs Labs: Short CBC 10/06/23 Range/Units 04:23 WBC 13.0 H (4.0-11.0) 10^3/uL Hgb 10.7 L (12.0-16.0) g/dL Hct 31.9 L (36.0-48.0) % Plt Count 136 L (150-450) 10^3/uL BMP 10/06/23 04:23 Sodium 129 L Potassium 3.6 Chloride 99 Carbon Dioxide 18.2 L BUN 46.0 H Creatinine 2.76 H Glucose 174 H Calcium 7.7 L Liver Function 10/06/23 Range/Units 04:23 Total Bilirubin 0.4 (0.2-1.0) mg/dL AST 26 (15-37) U/L ALT 24 (14-59) U/L Alkaline Phosphatase 124 H (46-116) U/L Albumin 1.7 L (3.4-5.0) g/dL Progress Note: A&P Assessment and Plan (1) Pneumonia: Assessment and Plan: Patient presented to the emergency room with fever, respiratory distress. Found to have right lower lobe pneumonia, sinus tachycardia, lactate improved to normal range after IVF, also on Rocephin and levaquin. Urine and blood cultures positive for Klebsiella, sensitive to the rocephin, so will stop levaquin. No signs of sepsis, this has resolved. Qualifiers: Pneumonia type: due to Klebsiella pneumoniae Laterality: right Lung location: lower lobe of lung Qualified Code(s): J15.0 - Pneumonia due to Klebsiella pneumoniae (2) UTI due to Klebsiella species: Assessment and Plan: cultures positive, continue rocephin (3) Acute kidney injury: Assessment and Plan: improving, stop IVF and levaquin, normal renal ultrasound (4) Atrial fibrillation: Assessment and Plan: rate controlled on oral cardizem, was initially on drip, continue eliquis and metoprolol (5) Diabetes: Assessment and Plan: SSI (6) Hypertension: Assessment and Plan: stable on home metoprolol, holding jessica secondary to AKF (7) Thrombocytopenia: Assessment and Plan: from acute sepsis, monitor Cbc (8) Elevated troponin level: Assessment and Plan: most likely type 2 NSTEMI with ARF and also PNA. Plan patient is a full code continue Eliquis for DVT prophylaxis patient is inpatient status and is expected to stay more than 2 midnights
[2023-10-06 08:11] LABS: Glucometer 143 mg/dL (74-106)
[2023-10-06] MEDS: CEFTRIAXONE 1,000 MG in 0.9 % SODIUM CHLORIDE 50 ML 100 MG IV (10:29)
[2023-10-06] MEDS: LEVALBUTEROL HCL 0.63 MG/3 ML VIAL.NEB IH (11:14)
[2023-10-06] MEDS: IPRATROPIUM BROMIDE 0.5 MG/2.5 ML VIAL.NEB IH (11:15)
[2023-10-06 11:47] LABS: Glucometer 200 mg/dL (74-106)
[2023-10-06] MEDS: INSULIN ASPART 300 UNIT/3 ML PEN SUBQ ×3 (12:09→21:40)
[2023-10-06 16:36] LABS: Glucometer 208 mg/dL (74-106)
[2023-10-06] MEDS: TIZANIDINE HCL 4 MG TABLET PO (20:10)
[2023-10-06 20:17] LABS: Glucometer 205 mg/dL (74-106)
[2023-10-07] VITALS (18 sets, daily range): BP systolic 114–128; BP diastolic 56–63; PULSE 66–88; RESP 16–20; TEMP 36.6–36.7; O2SAT 91–97
[2023-10-07 04:43] LABS: Basophils Absolute Auto 0.1 10^3/uL (0.0-0.1); Basophils Percent Auto 0.6 % (0.2-2.0); Eosinophils Absolute Auto 0.1 10^3/uL (0.0-0.7); Eosinophils Percent Auto 0.9 % (0.9-7.0); Hematocrit 32.9 % (36.0-48.0); Hemoglobin 10.3 g/dL (12.0-16.0); Immature Granulocytes Abs Auto 0.11 10^3/uL (0.00-0.03); Lymphocytes Absolute Auto 1.3 10^3/uL (1.2-3.8); Lymphocytes Percent Auto 11.8 % (20.5-60.0); Mean Corpuscular HGB Conc 31.3 g/dL (29.9-35.2); Mean Corpuscular Hemoglobin 28.4 pg (26.7-34.0); Mean Corpuscular Volume 90.6 fL (81.0-99.0); Mean Platelet Volume 11.8 fL (9.5-13.5); Monocytes Absolute Auto 1.2 10^3/uL (0.3-0.8); Monocytes Percent Auto 11.2 % (1.7-12.0); Neutrophils Percent Auto 74.5 % (43.0-75.0); Platelet Count 134 10^3/uL (150-450); Red Blood Count 3.63 10^6/uL (4.20-5.40); Red Cell Distribution Width 17.2 % (11.0-15.0); White Blood Count 10.7 10^3/uL (4.0-11.0)
[2023-10-07 05:07] LABS: Troponin I High Sensitivity 32.5 pg/mL (4.0-51.3)
[2023-10-07 05:08] LABS: Alanine Aminotransferase 24 U/L (14-59); Albumin Globulin Ratio 0.4; Albumin Level 1.7 g/dL (3.4-5.0); Alkaline Phosphatase 122 U/L (46-116); Anion Gap 14.6; Aspartate Amino Transferase 17 U/L (15-37); BUN Creatinine Ratio 18.9; Bilirubin Total 0.4 mg/dL (0.2-1.0); Calcium 8.1 mg/dL (8.5-10.1); Carbon Dioxide 20.3 mmol/L (21.0-32.0); Chloride 100 mmol/L (98-107); Estimated GFR (African America 21 (>=60); Estimated GFR (Non-African Ame 17 (>=60); Globulin 4.3 g/dL; Glucose 61 mg/dL (74-106); Magnesium 2.2 mg/dL (1.8-2.4); Potassium 3.9 mmol/L (3.5-5.1); Sodium 131 mmol/L (136-145)
[2023-10-07 05:55] LABS: Digoxin 1.5 ng/mL (0.9-2.0)
[2023-10-07] MEDS: CALCIUM CARBONATE 500 MG (200MG ELEMENTAL) TAB CHEW PO ×3 (06:20→21:44)
[2023-10-07] MEDS: DILTIAZEM HCL 60 MG TABLET PO ×4 (06:21→21:44)
[2023-10-07 07:32] LABS: Glucometer 78 mg/dL (74-106)
--- NOTE | 2023-10-07 07:34 | PM.PN ---
Progress Note: Subjective Subjective Interval history: patient is sitting up in recliner in room, she reports she is feeling better.. She states that she did not get much rest last night so feels a little tired today but overall reports that her shortness of breath has improved. she denies fevers chills nausea vomiting or diarrhea. She follows with Dr. Marina of [facility] [email or web address]] cardiology. Echo still pending. Lower edema today bilaterally with elevated pro BNP 5677. Afib rate controlled. No Shortness of breath or chest pain. Exam Narrative Exam Narrative: General: Patient is alert, and oriented to person, place and time with normal affect, proper hygiene, morbid obesity Skin: no visible rashes, or ulcers Head: atraumatic, acephalic Eyes: PERRLA, no nystagmus present, conjunctiva clear, no scleral icterus Ears: normal gross auditory acuity Nose: symmetric, no discharge, no maxillary or frontal sinus tenderness Heart: Normal rate and rhythm, no murmurs/rubs/gallops Lungs: diminished breath sounds all lung paula Abdomen: Normal audible bowel sounds, no distension, No palpable masses, no organomegaly, no rebound/guarding/ or rigidity Ext: +2 pitting edema bilaterally Neuro: CN II-X grossly intact, normal sensation upper and lower extremities Constitutional Vital Signs, click to edit/add: Last Vital Signs Temp 98.6 F 10/06/23 21:58 Pulse 68 10/07/23 06:05 Resp 26 H 10/06/23 22:30 BP 140/61 10/06/23 21:58 Pulse Ox 93 L 10/06/23 23:46 O2 Del Method Room Air 10/06/23 06:12 O2 Flow Rate 2 10/05/23 04:11 FiO2 2 10/05/23 06:15 Progress Note: Objective Labs Labs: Short CBC 10/07/23 Range/Units 04:09 WBC 10.7 (4.0-11.0) 10^3/uL Hgb 10.3 L (12.0-16.0) g/dL Hct 32.9 L (36.0-48.0) % Plt Count 134 L (150-450) 10^3/uL BMP 10/07/23 04:09 Sodium 131 L Potassium 3.9 Chloride 100 Carbon Dioxide 20.3 L BUN 53.0 H Creatinine 2.80 H Glucose 61 L Calcium 8.1 L Liver Function 10/07/23 Range/Units 04:09 Total Bilirubin 0.4 (0.2-1.0) mg/dL AST 17 (15-37) U/L ALT 24 (14-59) U/L Alkaline Phosphatase 122 H (46-116) U/L Albumin 1.7 L (3.4-5.0) g/dL Progress Note: A&P Assessment and Plan (1) Pneumonia: Assessment and Plan: Patient presented to the emergency room with fever, respiratory distress. Found to have right lower lobe pneumonia, sinus tachycardia, lactate improved to normal range after IVF, also on Rocephin and levaquin. Urine and blood cultures positive for Klebsiella, sensitive to the rocephin, continue. No signs of sepsis, this has resolved. Qualifiers: Laterality: right Lung location: lower lobe of lung Pneumonia type: due to Klebsiella pneumoniae Qualified Code(s): J15.0 - Pneumonia due to Klebsiella pneumoniae (2) UTI due to Klebsiella species: Assessment and Plan: cultures positive, continue rocephin (3) Acute congestive heart failure: Assessment and Plan: elevated pro BNP 5677, Will give Bumex 2mg IV x 1, echo pending (4) Acute kidney injury: Assessment and Plan: improving, stop IVF and levaquin, normal renal ultrasound (5) Atrial fibrillation: Assessment and Plan: rate controlled on oral cardizem, was initially on drip, continue eliquis and metoprolol (6) Diabetes: Assessment and Plan: SSI (7) Hypertension: Assessment and Plan: stable on home metoprolol, holding jessica secondary to AKF (8) Thrombocytopenia: Assessment and Plan: from acute sepsis, monitor Cbc (9) Elevated troponin level: Assessment and Plan: most likely type 2 NSTEMI with ARF and also PNA. Trop 32/ normal range today Plan patient is a full code continue Eliquis for DVT prophylaxis patient is inpatient status and is expected to stay more than 2 midnights
[2023-10-07] MEDS: PANTOPRAZOLE SODIUM 40 MG VIAL IV (08:00)
[2023-10-07] MEDS: BUMETANIDE 1 MG/4 ML VIAL 2 MG IVP (08:00)
[2023-10-07] MEDS: PROSTAT 15 GM PROTEIN/100 CAL 30 ML LIQUID PACKET PO ×2 (08:11→21:45)
[2023-10-07] MEDS: APIXABAN 5 MG TABLET PO ×2 (08:11→21:44)
[2023-10-07] MEDS: DIGOXIN 125 MCG TABLET 250 MCG PO (08:11)
[2023-10-07] MEDS: METOPROLOL TARTRATE 50 MG TABLET PO ×2 (08:11→21:44)
[2023-10-07] MEDS: CLOPIDOGREL BISULFATE 75 MG TABLET PO (08:11)
[2023-10-07] MEDS: MAGNESIUM OXIDE 400 MG TABLET PO ×2 (08:11→21:44)
[2023-10-07] MEDS: INSULIN DETEMIR 300 UNIT/3 ML INSULN.PEN 30 UNIT SUBQ ×2 (08:14→21:46)
--- NOTE | 2023-10-07 09:46 | PC.NURSE ---
Patient approved to move to Med Surg via Dr. Pepe. Nursing yarn preparation supervisor informed.
[2023-10-07] MEDS: CEFTRIAXONE 1,000 MG in 0.9 % SODIUM CHLORIDE 50 ML 100 MG IV (10:14)
[2023-10-07 11:15] LABS: Glucometer 161 mg/dL (74-106)
[2023-10-07] MEDS: HYOSCYAMINE SULFATE 0.125 MG TAB.SUBL SL (17:21)
[2023-10-07] MEDS: INSULIN ASPART 300 UNIT/3 ML PEN SUBQ (21:45)
[2023-10-07 21:49] LABS: Glucometer 288 mg/dL (74-106)
--- NOTE | 2023-10-07 22:51 | RESP.RT ---
Pt refused HHN and PEP. Pt stated they do nothing for her and does not want to take them or use the PEP.
[2023-10-08] VITALS (11 sets, daily range): BP systolic 126–127; BP diastolic 63; PULSE 65–68; RESP 18–20; TEMP 36.8; O2SAT 90–93
[2023-10-08] MEDS: DILTIAZEM HCL 60 MG TABLET PO (05:09)
[2023-10-08] MEDS: CALCIUM CARBONATE 500 MG (200MG ELEMENTAL) TAB CHEW PO (05:11)
[2023-10-08 05:30] LABS: Hematocrit 33.5 % (36.0-48.0); Hemoglobin 10.5 g/dL (12.0-16.0); Mean Corpuscular HGB Conc 31.3 g/dL (29.9-35.2); Mean Corpuscular Hemoglobin 28.1 pg (26.7-34.0); Mean Corpuscular Volume 89.6 fL (81.0-99.0); Mean Platelet Volume 11.9 fL (9.5-13.5); Platelet Count 158 10^3/uL (150-450); Red Blood Count 3.74 10^6/uL (4.20-5.40); Red Cell Distribution Width 16.9 % (11.0-15.0); White Blood Count 14.3 10^3/uL (4.0-11.0)
[2023-10-08 05:58] LABS: Alanine Aminotransferase 25 U/L (14-59); Albumin Globulin Ratio 0.4; Albumin Level 1.7 g/dL (3.4-5.0); Alkaline Phosphatase 127 U/L (46-116); Anion Gap 14.9; Aspartate Amino Transferase 21 U/L (15-37); BUN Creatinine Ratio 23.2; Bilirubin Total 0.4 mg/dL (0.2-1.0); Calcium 8.1 mg/dL (8.5-10.1); Carbon Dioxide 19.2 mmol/L (21.0-32.0); Chloride 99 mmol/L (98-107); Estimated GFR (African America 23 (>=60); Estimated GFR (Non-African Ame 19 (>=60); Globulin 4.4 g/dL; Glucose 148 mg/dL (74-106); Potassium 4.1 mmol/L (3.5-5.1); Sodium 129 mmol/L (136-145); Total Protein 6.1 g/dL (6.4-8.2)
[2023-10-08 06:00] LABS: Digoxin 1.7 ng/mL (0.9-2.0)
[2023-10-08 06:05] LABS: Eosinophils Absolute Manual 0.42 10^3/uL (0.00-0.70); Lymphocytes Absolute Manual 1.85 10^3/uL (1.20-3.80); Monocytes Absolute Manual 0.71 10^3/uL (0.30-0.80); Segmented Neut Absolute Manual 11.29 10^3/uL (1.4-6.5)
[2023-10-08 07:37] LABS: Glucometer 156 mg/dL (74-106)
--- NOTE | 2023-10-08 07:39 | P.DS_ITS ---
DS: Providers Provider Date of admission: 10/04/23 11:31 Primary care physician: Paul Santos MD DS: Diagnosis Discharge Diagnosis (1) Pneumonia: Qualifiers: Laterality: right Lung location: lower lobe of lung Pneumonia type: due to Klebsiella pneumoniae Qualified Code(s): J15.0 - Pneumonia due to Klebsiella pneumoniae (2) UTI due to Klebsiella species: (3) Acute congestive heart failure: (4) Acute kidney injury: (5) Atrial fibrillation: (6) Diabetes: (7) Hypertension: (8) Thrombocytopenia: (9) Elevated troponin level: Plan Fever, sinus tachycardia, respiratory distress, acute kidney injury, leukocytosis, thrombocytopenia, hyponatremia, positive lactate, elevated troponin secondary to right lower lobe pneumonia complicated by acute UTI resulting in severe sepsis with multisystem organ dysfunction(Cardiac, renal, heme). Sepsis secondary to Klebsiella Elevated high-sensitivity troponin troponin likely from demand ischemia from the tachycardia - Type 2 - NSTEM. Right lower lobe pneumonia Acute hypoxia-this is possibly secondary to the pneumonia and fluid resuscitation but also a degree of sleep apnea. Acute UTI-due to Kleb Oxytoca Acute renal failure-creatinine back in January of this year was 1.08. History of hypertension History of heart failure Atrial fibrillation with rapid ventricular response Coronary artery disease Low back pain Thrombocytopenia likely secondary to stress reaction from the above Hypokalemia IDDM-insulin sliding scale Hyponatremia secondary to the dehydration. Iron deficiency anemia Hypocalcemia Hypomagnesemia Morbid obesity Severe protein calorie malnutrition with severe hypoalbuminemia DS: Summary Hospital Course Hospital Course: Patient admitted with Fever, sinus tachycardia, respiratory distress, acute kidney injury, leukocytosis, thrombocytopenia, hyponatremia, positive lactate, elevated troponin secondary to right lower lobe pneumonia complicated by acute UTI resulting in severe sepsis with multisystem organ dysfunction(Cardiac, renal, heme). Given significant fluid resuscitation over the first 24 hours. Her heart rate did not improve. She was transferred back to the intensive care unit where she was placed on Cardizem drip. I did improve her heart rate and showed she is in atrial flutter. Patient had known history of atrial fibrillation. Already anticoagulated. Patient placed initially on Rocephin and Zithromax in ER but was changed to Rocephin and Levaquin when admitted. Patient with acute renal failure, ultrasound of kidneys was unremarkable. Her kidney function is improving her blood cultures were positive for Klebsiella. She has significant edema yesterday so is kept in the hospital 1 additional day. This is likely secondary to fluid resuscitation necessary for the sepsis. Now mobilizing fluids. She feels improved today. Ambulating well with walker. At this point patient feels after being discharged home. She will be discharged home in improving condition. Medications see list. Follow-up with me in the office later this week. Status at Discharge Overall status at discharge: patient is not back to baseline Time Spent with Patient Time attestation: Total time spent providing and/or coordinating discharge services: Exam Constitutional Vital Signs, click to edit/add: Last Vital Signs Temp 98.2 F 10/08/23 05:12 Pulse 67 10/08/23 06:00 Resp 18 10/08/23 05:12 BP 126/63 10/08/23 05:12 Pulse Ox 90 L 10/08/23 05:12 O2 Del Method Room Air 10/08/23 05:12 O2 Flow Rate 2 10/05/23 04:11 FiO2 2 10/05/23 06:15 Documenting provider has reviewed patient's vital signs: yes Common normals: apparent distress (Mild respiratory distress) [facility] Common normals: moist oral mucous membranes Chest Common normals: inspection of chest normal Respiratory Common normals: normal respiratory effort (Mild respiratory distress with mild conversational dyspnea) Auscultation: rhonchi (Minimal rhonchi); no egophony Cardio Common normals: regular rate; irregular rhythm Rate: regular rate Rhythm: abnormal rhythm Extremity Other: 1+ edema bilateral lower extremities which is normal for her DS: Data Data Completed and Pending Labs on day of discharge: Labs from last 24 hours 10/08/23 10/08/23 10/07/23 07:35 04:56 21:44 WBC 14.3 H RBC 3.74 L Hgb 10.5 L Hct 33.5 L MCV 89.6 MCH 28.1 MCHC 31.3 RDW 16.9 H Plt Count 158 MPV 11.9 Seg Neuts % (Manual) 79.0 Lymphocytes % (Manual) 13.0 L Monocytes % (Manual) 5.0 Eosinophils % (Manual) 3.0 Basophils % (Manual) 0.0 L Neutrophils # (Manual) 11.29 H Lymphocytes # (Manual) 1.85 Monocytes # (Manual) 0.71 Eosinophils # (Manual) 0.42 Basophils # (Manual) 0.00 Sodium 129 L Potassium 4.1 Chloride 99 Carbon Dioxide 19.2 L Anion Gap 14.9 BUN 60.0 H Creatinine 2.59 H Est GFR ( Amer) 23 L Est GFR (Non-Af Amer) 19 L BUN/Creatinine Ratio 23.2 Glucose 148 H Calcium 8.1 L Magnesium 2.0 Total Bilirubin 0.4 AST 21 ALT 25 Alkaline Phosphatase 127 H Total Protein 6.1 L Albumin 1.7 L Globulin 4.4 Albumin/Globulin Ratio 0.4 Digoxin 1.7 POC Glucose 156 H 288 H 10/07/23 11:05 WBC RBC Hgb Hct MCV MCH MCHC RDW Plt Count MPV Seg Neuts % (Manual) Lymphocytes % (Manual) Monocytes % (Manual) Eosinophils % (Manual) Basophils % (Manual) Neutrophils # (Manual) Lymphocytes # (Manual) Monocytes # (Manual) Eosinophils # (Manual) Basophils # (Manual) Sodium Potassium Chloride Carbon Dioxide Anion Gap BUN Creatinine Est GFR ( Amer) Est GFR (Non-Af Amer) BUN/Creatinine Ratio Glucose Calcium Magnesium Total Bilirubin AST ALT Alkaline Phosphatase Total Protein Albumin Globulin Albumin/Globulin Ratio Digoxin POC Glucose 161 H Preliminary micro results at discharge 10/05/23 21:00 Sputum Culture - Preliminary Sputum - Expectorated Sputum 10/04/23 10:25 Blood Culture Result 1 - Preliminary Blood Klebsiella oxytoca 10/04/23 10:30 - Preliminary Blood Discharge Plan Discharge Disposition: Home, Self-Care Condition: Fair Discharge Medications: New levofloxacin 500 mg tablet 500 mg PO DAILY 14 Days Qty: 14 0RF diltiazem HCl [Cardizem CD] 240 mg capsule,extended release 24hr 240 mg PO Q24H Qty: 30 11RF furosemide [Lasix] 20 mg tablet 20 mg PO DAILY Qty: 30 11RF magnesium oxide 400 mg (241.3 mg magnesium) Tablet 400 mg PO BID Qty: 60 11RF Continued Eliquis 5 mg tablet 5 mg PO Q12H clopidogrel 75 mg tablet 75 mg PO DAILY digoxin 250 mcg (0.25 mg) tablet 250 mcg PO .QD insulin aspart U-100 [Novolog FlexPen U-100 Insulin] 100 unit/mL (3 mL) ins ulin pen 1 sliding scale dose SUBCUT DAILY insulin glargine [Basaglar KwikPen U-100 Insulin] 100 unit/mL (3 mL) insulin pen 46 unit SUBCUT BID Patient Comments: dose unknown metoprolol tartrate 25 mg tablet 25 mg PO Q12H tizanidine 4 mg tablet 4 mg PO Q12H PRN (Reason: muscle spasticity) Discontinued diclofenac sodium 75 mg tablet,delayed release (DR/EC) 75 mg PO Q12H furosemide 40 mg tablet 40 mg PO DAILY lisinopril 10 mg tablet 10 mg PO DAILY Forms: Portal Instructions
[2023-10-08] MEDS: INSULIN ASPART 300 UNIT/3 ML PEN SUBQ (07:49)
[2023-10-08] MEDS: INSULIN DETEMIR 300 UNIT/3 ML INSULN.PEN 30 UNIT SUBQ (08:23)
[2023-10-08] MEDS: APIXABAN 5 MG TABLET PO (08:24)
[2023-10-08] MEDS: CLOPIDOGREL BISULFATE 75 MG TABLET PO (08:24)
[2023-10-08] MEDS: DIGOXIN 125 MCG TABLET 250 MCG PO (08:24)
[2023-10-08] MEDS: PROSTAT 15 GM PROTEIN/100 CAL 30 ML LIQUID PACKET PO (08:24)
[2023-10-08] MEDS: MAGNESIUM OXIDE 400 MG TABLET PO (08:26)
[2023-10-08] MEDS: CEFTRIAXONE 1,000 MG in 0.9 % SODIUM CHLORIDE 50 ML 100 MG IV (09:00)
[2023-10-08] MEDS: PANTOPRAZOLE SODIUM 40 MG VIAL IV (09:12)
[2023-10-08] MEDS: METOPROLOL TARTRATE 50 MG TABLET PO (09:12)
--- NOTE | 2023-10-08 10:51 | CM.NOTE ---
Pt is discharge to home today. Discussed with pt again about discharge needs. Pt denies any discharge needs. Pt has daughter that checks up on her daily.
== END 2023-10-08 10:57 | disposition home or self-care (01) | DRG 871 ==
LOC: ER 11:34 → MS 12:11 → ICU 23:41 → MS 10-07 13:05
PROVIDERS: Family Medicine; Admitting Provider Family Medicine; Emergency Provider Emergency Medicine; PCP Family Medicine; Visit Provider Family Medicine
DX: A41.59 Other Gram-negative sepsis (principal); E43 Unspecified severe protein-calorie malnutrition; J15.0 Pneumonia due to Klebsiella pneumoniae; I21.A1 Myocardial infarction type 2; N17.9 Acute kidney failure, unspecified; N39.0 Urinary tract infection, site not specified; Z68.41 Body mass index [BMI] 40.0-44.9, adult; E87.1 Hypo-osmolality and hyponatremia; R65.20 Severe sepsis without septic shock; E11.9 Type 2 diabetes mellitus without complications; M19.90 Unspecified osteoarthritis, unspecified site; G89.29 Other chronic pain; I48.91 Unspecified atrial fibrillation; E83.42 Hypomagnesemia; F17.210 Nicotine dependence, cigarettes, uncomplicated; I25.10 Atherosclerotic heart disease of native coronary artery without angina pectoris; M54.50 Low back pain, unspecified; I11.0 Hypertensive heart disease with heart failure; I50.9 Heart failure, unspecified; D69.6 Thrombocytopenia, unspecified; E87.6 Hypokalemia; E83.51 Hypocalcemia; E66.01 Morbid (severe) obesity due to excess calories; B96.1 Klebsiella pneumoniae [K. pneumoniae] as the cause of diseases classified elsewhere; E86.0 Dehydration; G47.30 Sleep apnea, unspecified; R09.02 Hypoxemia; D50.9 Iron deficiency anemia, unspecified; Z79.02 Long term (current) use of antithrombotics/antiplatelets; Z79.899 Other long term (current) drug therapy; Z88.2 Allergy status to sulfonamides; Z79.4 Long term (current) use of insulin; Z79.01 Long term (current) use of anticoagulants; Z79.1 Long term (current) use of non-steroidal anti-inflammatories (NSAID)
CPT/HCPCS: 36415; 51702; 71045; 76770; 80048; 80053; 80162; 81001; 82550; 82553; 82800; 82948; 83605; 83735; 83874; 83880; 84484; 85025; 85027; 87040; 87070; 87086; 87150; 87186; 87205; 87635; 87811; 93005; 93306; 94640; 94667; 94668; 94761; 96365; 96366; 96367; 96368; 96375; 96376; 99285; J0456

== ENCOUNTER 2023-10-15 16:55 | Inpatient (IN) | payer OTHER, SELFPAY ==
[2023-10-15] VITALS (11 sets, daily range): BP systolic 134–138; BP diastolic 59–61; PULSE 60–71; RESP 18–28; TEMP 36.8–36.9; O2SAT 79–97; BMI 44.9
[2023-10-15 17:18] LABS: Glucometer 104 mg/dL (74-106)
[2023-10-15] MEDS: HYDROMORPHONE HCL 0.5 MG/0.5 ML SYRINGE IV (17:58)
--- NOTE | 2023-10-15 18:40 | XR_ITS ---
The [address] [address] Patient Name: DOROTHY ADAMS MRN: [id number] date: 1965 Sex: F Assigned Patient Location: Current Patient Location: Accession/Order Number: [id number] Exam Date: 10/15/2023 20:45 Report Date: 10/15/2023 21:46 At the request of: CARY BENTON Procedure: XR chest 2V EXAMINATION: XR chest 2V, , 10/15/2023 8:45 PM EST INDICATION: Dyspnea HISTORY: Ordering Provider Reason for Exam: Dyspnea Technologist Note: Additional: COMPARISON: None. TECHNIQUE: Chest x-ray: Two views. FINDINGS: No pneumothorax, pleural effusion or focal airspace consolidation. Mild diffuse prominence of the bronchovascular markings is seen, which can be seen with mild diffuse bronchitis versus pulmonary edema. Heart is normal in size. Bony thorax is unremarkable. XR/XR chest 2V IMPRESSION: Mild diffuse prominence of the bronchovascular markings is seen, which can be seen with mild diffuse bronchitis versus pulmonary edema. Electronically authenticated by: LESVIA GRACIA Date: 10/15/2023 21:46
[2023-10-15 19:40] LABS: Basophils Absolute Auto 0.1 10^3/uL (0.0-0.1); Basophils Percent Auto 0.8 % (0.2-2.0); Eosinophils Percent Auto 0.3 % (0.9-7.0); Hematocrit 31.9 % (36.0-48.0); Hemoglobin 9.9 g/dL (12.0-16.0); Immature Granulocytes Abs Auto 0.21 10^3/uL (0.00-0.03); Immature Granulocytes Pct Auto 1.4 % (0.0-0.5); Lymphocytes Absolute Auto 1.3 10^3/uL (1.2-3.8); Lymphocytes Percent Auto 8.2 % (20.5-60.0); Mean Corpuscular Volume 90.1 fL (81.0-99.0); Mean Platelet Volume 10.9 fL (9.5-13.5); Monocytes Absolute Auto 1.1 10^3/uL (0.3-0.8); Monocytes Percent Auto 6.9 % (1.7-12.0); Neutrophils Absolute Auto 12.7 10^3/uL (1.4-6.5); Neutrophils Percent Auto 82.4 % (43.0-75.0); Platelet Count 337 10^3/uL (150-450); Red Blood Count 3.54 10^6/uL (4.20-5.40); Red Cell Distribution Width 16.6 % (11.0-15.0); White Blood Count 15.5 10^3/uL (4.0-11.0)
[2023-10-15] MEDS: BUMETANIDE 10 MG in 0.9 % SODIUM CHLORIDE 160 ML 20 MG IV (19:51)
--- NOTE | 2023-10-15 19:57 | P.HP_ITS ---
H&P: HPI History of Present Illness Chief complaint: FLUID OVERLOAD Narrative: Patient with fairly recent discharge with fluid overload and acute kidney injury-since discharge has had increasing swelling again. Some mild shortness of breath and mild orthopnea. Patient mated with fluid overload. Labs x-rays are pending would hold off on echo likely had one recently. Patient with moderate respiratory distress in office. [facility] Medical History (Updated 10/12/23 @ 00:00 by ) Acute congestive heart failure ?I50.9 - Heart failure, unspecified (ICD-10) Acute kidney injury ?N17.9 - Acute kidney failure, unspecified (ICD-10) Arthritis ?M19.90 - Unspecified osteoarthritis, unspecified site (ICD-10) Atrial fibrillation ?I48.91 - Unspecified atrial fibrillation (ICD-10) delivery delivered ?O82 - Encounter for delivery without indication (ICD-10) Diabetes ?E11.9 - Type 2 diabetes mellitus without complications (ICD-10) Elevated troponin level ?R79.89 - Other specified abnormal findings of blood chemistry (ICD-10) Hypertension ?I10 - Essential (primary) hypertension (ICD-10) Pneumonia ?J18.9 - Pneumonia, unspecified organism (ICD-10) Thrombocytopenia ?D69.6 - Thrombocytopenia, unspecified (ICD-10) UTI due to Klebsiella species ?N39.0 - Urinary tract infection, site not specified (ICD-10) ?B96.89 - Other specified bacterial agents as the cause of diseases classified elsewhere (ICD-10) Surgical History (Updated 10/04/23 @ 23:00 by Valeri Mcintosh RN) H/O cervical spine surgery ?Z98.890 - Other specified postprocedural states (ICD-10) H/O heart artery stent ?Z95.5 - Presence of coronary angioplasty implant and graft (ICD-10) History of carpal tunnel surgery ?Z98.890 - Other specified postprocedural states (ICD-10) History of gastrointestinal surgery ?Z98.890 - Other specified postprocedural states (ICD-10) History of tonsillectomy ?Z90.89 - Acquired absence of other organs (ICD-10) Previous back surgery ?Z98.890 - Other specified postprocedural states (ICD-10) Family History (Updated 10/15/23 @ 17:31 by Frida Brito) Other Family history not known due to adoption Social History (Updated 10/04/23 @ 13:39 by Modesta Hendrix RN) Smoking status: Heavy tobacco smoker Gender Identity: female Meds Home Medications and Allergies Home Medications Medication Instructions Recorded Confirmed Type apixaban 5 mg tablet (Eliquis) 5 mg PO BID 10/04/23 10/15/23 History clopidogrel 75 mg tablet 75 mg PO DAILY 10/04/23 10/15/23 History digoxin 250 mcg (0.25 mg) tablet 250 mcg PO .QD 10/04/23 10/15/23 History insulin aspart U-100 100 unit/mL 1 sliding scale dose subcut ACHS 10/04/23 10/15/23 History (3 mL) subcutaneous pen (Novolog FlexPen U-100 Insulin aspart) insulin glargine 100 unit/mL (3 36 unit subcut BID 10/04/23 10/15/23 History mL) subcutaneous pen (Basaglar KwikPen U-100 Insulin) metoprolol tartrate 25 mg tablet 25 mg PO Q12H 10/04/23 10/15/23 History tizanidine 4 mg tablet 4 mg PO Q12H PRN muscle spasticity 10/04/23 10/15/23 History diltiazem HCl 240 mg 240 mg PO Q24H #30 caps 10/08/23 10/15/23 Rx capsule,extended release 24 hr (Cardizem CD) furosemide 20 mg tablet (Lasix) 20 mg PO DAILY #30 tabs 10/08/23 10/15/23 Rx levofloxacin 500 mg tablet 500 mg PO DAILY 14 days #14 tabs 10/08/23 10/15/23 Rx magnesium oxide 400 mg (241.3 mg 400 mg PO BID #60 tabs 10/08/23 10/15/23 Rx magnesium) tablet atorvastatin 80 mg tablet (Lipitor) 80 mg PO QPM 10/15/23 10/15/23 History duloxetine 60 mg capsule,delayed 60 mg PO BID 10/15/23 10/15/23 History release (Cymbalta) nifedipine 30 mg tablet,extended 30 mg PO DAILY 10/15/23 10/15/23 History release 24 hr (Procardia XL) Allergies Allergy/AdvReac Type Severity Reaction Status Date / Time Sulfa (Sulfonamide AdvReac Severe Nausea Verified 10/04/23 09:57 Antibiotics) Exam Constitutional Vital Signs, click to edit/add: Last Vital Signs Temp 98.4 F 10/15/23 19:48 Pulse 60 10/15/23 19:48 Resp 24 10/15/23 19:48 BP 134/59 10/15/23 19:51 Pulse Ox 92 L 10/15/23 19:48 O2 Del Method Room Air 10/15/23 19:48 Results Labs Labs: Short CBC 10/15/23 Range/Units 19:30 WBC 15.5 H (4.0-11.0) 10^3/uL Hgb 9.9 L (12.0-16.0) g/dL Hct 31.9 L (36.0-48.0) % Plt Count 337 (150-450) 10^3/uL Assessment and Plan Assessment and Plan (1) Acute congestive heart failure: (2) Acute kidney injury: (3) Atrial fibrillation: (4) Diabetes: (5) Hypertension: Plan Shortness of breath, peripheral edema, orthopnea secondary to fluid overload- patient denies chest pain or diaphoresis. Check labs. Bumex drip overnight. If improved tomorrow possible discharge. Atrial fibrillation-continue with home medications rate well controlled Chronic pain-continue with home medications Diabetes mellitus-insulin sliding scale Acute UTI-on Levaquin, will maintain that currently Hypomagnesemia by history-continue with supplementation monitor
[2023-10-15 20:03] LABS: Troponin I High Sensitivity 21.9 pg/mL (4.0-51.3)
[2023-10-15 20:07] LABS: Alanine Aminotransferase 62 U/L (14-59); Albumin Globulin Ratio 0.5; Albumin Level 2.3 g/dL (3.4-5.0); Alkaline Phosphatase 245 U/L (46-116); Anion Gap 14.8; Aspartate Amino Transferase 74 U/L (15-37); Bilirubin Total 0.5 mg/dL (0.2-1.0); Calcium 8.3 mg/dL (8.5-10.1); Carbon Dioxide 24.1 mmol/L (21.0-32.0); Chloride 98 mmol/L (98-107); Estimated GFR (African America 31 (>=60); Estimated GFR (Non-African Ame 26 (>=60); Globulin 4.5 g/dL; Glucose 114 mg/dL (74-106); Magnesium 2.1 mg/dL (1.8-2.4); Potassium 4.9 mmol/L (3.5-5.1); Sodium 132 mmol/L (136-145); Total Protein 6.8 g/dL (6.4-8.2)
[2023-10-15] MEDS: TIZANIDINE HCL 4 MG TABLET PO (21:02)
[2023-10-15] MEDS: MAGNESIUM OXIDE 400 MG TABLET PO (21:02)
[2023-10-15] MEDS: ATORVASTATIN CALCIUM 40 MG TABLET 80 MG PO (21:02)
[2023-10-15] MEDS: METOPROLOL TARTRATE 25 MG TABLET PO (21:02)
[2023-10-15] MEDS: APIXABAN 5 MG TABLET PO (21:02)
[2023-10-15] MEDS: DULOXETINE HCL 60 MG CAPSULE.DR PO (21:02)
[2023-10-15 21:05] LABS: Glucometer 190 mg/dL (74-106)
[2023-10-15] MEDS: INSULIN DETEMIR 300 UNIT/3 ML INSULN.PEN 36 UNIT SUBQ (21:05)
[2023-10-15] MEDS: INSULIN ASPART 300 UNIT/3 ML PEN SUBQ (21:05)
[2023-10-16] VITALS (37 sets, daily range): BP systolic 120–166; BP diastolic 61–72; PULSE 44–70; RESP 16–28; TEMP 36.2–36.8; O2SAT 83–96
[2023-10-16 05:51] LABS: Basophils Absolute Auto 0.1 10^3/uL (0.0-0.1); Basophils Percent Auto 0.9 % (0.2-2.0); Eosinophils Percent Auto 0.2 % (0.9-7.0); Hematocrit 30.7 % (36.0-48.0); Hemoglobin 9.6 g/dL (12.0-16.0); Immature Granulocytes Abs Auto 0.12 10^3/uL (0.00-0.03); Immature Granulocytes Pct Auto 0.9 % (0.0-0.5); Lymphocytes Absolute Auto 1.1 10^3/uL (1.2-3.8); Lymphocytes Percent Auto 8.7 % (20.5-60.0); Mean Corpuscular HGB Conc 31.3 g/dL (29.9-35.2); Mean Corpuscular Hemoglobin 27.9 pg (26.7-34.0); Mean Corpuscular Volume 89.2 fL (81.0-99.0); Mean Platelet Volume 10.9 fL (9.5-13.5); Monocytes Absolute Auto 0.9 10^3/uL (0.3-0.8); Neutrophils Absolute Auto 10.8 10^3/uL (1.4-6.5); Neutrophils Percent Auto 82.3 % (43.0-75.0); Platelet Count 312 10^3/uL (150-450); Red Blood Count 3.44 10^6/uL (4.20-5.40); Red Cell Distribution Width 16.4 % (11.0-15.0); White Blood Count 13.1 10^3/uL (4.0-11.0)
[2023-10-16 06:21] LABS: Digoxin 1.9 ng/mL (0.9-2.0)
[2023-10-16 06:22] LABS: Alanine Aminotransferase 51 U/L (14-59); Albumin Globulin Ratio 0.5; Albumin Level 2.2 g/dL (3.4-5.0); Alkaline Phosphatase 209 U/L (46-116); Anion Gap 15.3; Aspartate Amino Transferase 42 U/L (15-37); BUN Creatinine Ratio 17.1; Bilirubin Total 0.4 mg/dL (0.2-1.0); Calcium 8.3 mg/dL (8.5-10.1); Carbon Dioxide 23.9 mmol/L (21.0-32.0); Chloride 100 mmol/L (98-107); Estimated GFR (African America 34 (>=60); Estimated GFR (Non-African Ame 28 (>=60); Globulin 4.3 g/dL; Potassium 4.2 mmol/L (3.5-5.1); Sodium 135 mmol/L (136-145); Total Protein 6.5 g/dL (6.4-8.2)
[2023-10-16 06:25] LABS: Glucose 42 mg/dL (74-106)
[2023-10-16 06:49] LABS: Glucometer 92 mg/dL (74-106)
[2023-10-16 07:21] LABS: Glucometer 125 mg/dL (74-106)
--- NOTE | 2023-10-16 08:47 | P.PN_ITS ---
Progress Note: Subjective Subjective Interval history: Patient states her breathing is not much improved today Exam Constitutional Vital Signs, click to edit/add: Last Vital Signs Temp 97.8 F 10/16/23 08:00 Pulse 63 10/16/23 08:00 Resp 20 10/16/23 08:00 BP 146/70 H 10/16/23 08:00 Pulse Ox 93 L 10/16/23 08:00 O2 Del Method Nasal Cannula 10/16/23 08:00 O2 Flow Rate 4 10/16/23 08:00 Documenting provider has reviewed patient's vital signs: yes Common normals: apparent distress (Mild respiratory distress) HENMT Common normals: moist oral mucous membranes Chest Common normals: inspection of chest normal Respiratory Common normals: normal respiratory effort (Mild respiratory distress with mild conversational dyspnea) Auscultation: rhonchi (Minimal rhonchi); no egophony Cardio Common normals: regular rate; irregular rhythm Rate: regular rate Rhythm: abnormal rhythm Extremity Other: 1+ edema bilateral lower extremities which is normal for her Progress Note: Objective Labs Labs: Short CBC 10/15/23 10/16/23 Range/Units 19:30 05:08 WBC 15.5 H 13.1 H (4.0-11.0) 10^3/uL Hgb 9.9 L 9.6 L (12.0-16.0) g/dL Hct 31.9 L 30.7 L (36.0-48.0) % Plt Count 337 312 (150-450) 10^3/uL BMP 10/15/23 10/16/23 19:30 05:08 Sodium 132 L 135 L Potassium 4.9 4.2 Chloride 98 100 Carbon Dioxide 24.1 23.9 BUN 34.0 H 32.0 H Creatinine 2.00 H 1.87 H Glucose 114 H 42 L* Calcium 8.3 L 8.3 L Liver Function 10/15/23 10/16/23 Range/Units 19:30 05:08 Total Bilirubin 0.5 0.4 (0.2-1.0) mg/dL AST 74 H 42 H (15-37) U/L ALT 62 H 51 (14-59) U/L Alkaline Phosphatase 245 H 209 H (46-116) U/L Albumin 2.3 L 2.2 L (3.4-5.0) g/dL Progress Note: A&P Assessment and Plan (1) Acute congestive heart failure: (2) Acute kidney injury: (3) Atrial fibrillation: (4) Diabetes: (5) Hypertension: Plan Shortness of breath, peripheral edema, orthopnea secondary to fluid overload and acute combined congestive heart failure with elevated BNP and now hypoxic. Hypoxia somewhat improved this morning. Repeat diuresis, consult to cardiology Atrial fibrillation-continue with home medications rate well controlled Chronic pain-continue with home medications Diabetes mellitus-insulin sliding scale Acute UTI-on Levaquin, will maintain that currently Hypomagnesemia by history-continue with supplementation monitor ?
[2023-10-16] MEDS: DIGOXIN 125 MCG TABLET 250 MCG PO (08:50)
[2023-10-16] MEDS: CLOPIDOGREL BISULFATE 75 MG TABLET PO (08:50)
[2023-10-16] MEDS: MAGNESIUM OXIDE 400 MG TABLET PO ×2 (08:50→20:36)
[2023-10-16] MEDS: APIXABAN 5 MG TABLET PO ×2 (08:55→20:36)
[2023-10-16] MEDS: METOPROLOL TARTRATE 25 MG TABLET PO ×2 (08:55→20:36)
[2023-10-16] MEDS: NIFEdipine 30 MG TAB.ER.24 PO (08:55)
[2023-10-16] MEDS: DULOXETINE HCL 60 MG CAPSULE.DR PO ×2 (08:55→20:36)
[2023-10-16] MEDS: TRAMADOL HCL 50 MG TABLET PO ×2 (09:15→15:27)
--- NOTE | 2023-10-16 09:25 | CM.NOTE ---
Rounds made with Dr. Hoy. Rosenbaum with complaints of pain-Dr. Santos will order Tramadol. No plan for discharge today.
[2023-10-16] MEDS: DILTIAZEM HCL 240 MG CAP.ER.24H PO (09:54)
[2023-10-16] MEDS: LEVOFLOXACIN 500 MG TABLET PO (10:02)
[2023-10-16] MEDS: BUMETANIDE 10 MG in 0.9 % SODIUM CHLORIDE 160 ML 20 MG IV (10:24)
[2023-10-16 10:54] LABS: Glucometer 178 mg/dL (74-106)
--- NOTE | 2023-10-16 13:06 | CA_ITS ---
Patient Name: DOROTHY ADAMS MR#: [id number] : 1965 Exam Date: 10/16/2023 Ordering Doctor: DR CARY BENTON . ECHOCARDIOGRAM REPORT PROCEDURE: CA ECHO LIMITED INDICATIONS: CHF COMPARISON: None. DESCRIPTION: Limited ECHOCARDIOGRAM Real-time transthoracic echocardiography with 2D and M-mode performed. QUALITY: Technical quality was good. Limited echocardiogram per physician order. LEFT VENTRICLE: Normal chamber size. Mild concentric left ventricular hypertrophy. LV EF: Normal left ventricular ejection fraction, (>55%). DIASTOLIC: ATRIAL SEPTUM: LEFT ATRIUM: Moderate dilatation. RIGHT ATRIUM: Mild dilatation. RIGHT VENTRICLE: Normal chamber size. Normal systolic function. TRICUSPID VALVE: Normal mobility and thickness. MITRAL VALVE: Mildly thickened with normal mobility. Moderate mitral annular calcification. AORTIC VALVE: Normal trileaflet appearance. Mildly calcified aortic valve. Normal leaflet mobility. AORTIC ROOT: PULMONIC VALVE: Normal thickness and mobility. PERICARDIUM: No evidence of pericardial effusion. IVC: IVC is dilated ( 2.8 cm) with no inspiratory collapse PLEURA: CONCLUSION: 1. Mild concentric left ventricular hypertrophy with normal systolic function. LVEF is 55 to 60%. 2. Normal right ventricular size and systolic function. 3. Aortic valve is mildly calcified but appears to open well. 4. The IVC is dilated with no inspiratory collapse consistent with elevated right-sided pressures. 5. Limited study performed with no Doppler interrogation as requested. Adult Echocardiography Procedure Report Left Ventricle LVEDD (3.7 - 5.6 cm): 4.93 cm LVESD (2.2 - 4.0 cm): 3.04 cm LVIVS thickness (0.6 - 1.2 cm): 1.23 cm LVPW thickness (0.5 - 1.0 cm): 1.10 cm LVOT Diameter 2.27 cm Left Atrium LA Volume Index (2D A2C): 46.29 ml/m2 Left Atrium Systolic Dimension: 4.82 cm Mitral Valve Right Ventricle Aorta AO Root Diam: 3.43 cm Aortic Valve Tricuspid Valve Pulmonic Valve Right Atrium Right Atrium Systolic Pressure: 64.64 ml, 64.64 ml Dictated by: Shaun Patel M.D. on 10/17/2023 at 08:10 Approved by: Shaun Patel M.D. on 10/17/2023 at 08:13
[2023-10-16] MEDS: INSULIN ASPART 300 UNIT/3 ML PEN SUBQ ×3 (14:09→20:38)
--- NOTE | 2023-10-16 15:20 | CM.NOTE ---
Discussed with pt PT recommendations, pt is open to services and requests [facility]. Faxed clinical to [facility].
--- NOTE | 2023-10-16 15:39 | PM.CACN ---
History of Present Illness History of Present Illness Chief complaint: FLUID OVERLOAD [facility] Medical History (Updated 10/12/23 @ 00:00 by ) Acute congestive heart failure ?I50.9 - Heart failure, unspecified (ICD-10) Acute kidney injury ?N17.9 - Acute kidney failure, unspecified (ICD-10) Arthritis ?M19.90 - Unspecified osteoarthritis, unspecified site (ICD-10) Atrial fibrillation ?I48.91 - Unspecified atrial fibrillation (ICD-10) delivery delivered ?O82 - Encounter for delivery without indication (ICD-10) Diabetes ?E11.9 - Type 2 diabetes mellitus without complications (ICD-10) Elevated troponin level ?R79.89 - Other specified abnormal findings of blood chemistry (ICD-10) Hypertension ?I10 - Essential (primary) hypertension (ICD-10) Pneumonia ?J18.9 - Pneumonia, unspecified organism (ICD-10) Thrombocytopenia ?D69.6 - Thrombocytopenia, unspecified (ICD-10) UTI due to Klebsiella species ?N39.0 - Urinary tract infection, site not specified (ICD-10) ?B96.89 - Other specified bacterial agents as the cause of diseases classified elsewhere (ICD-10) Surgical History (Updated 10/04/23 @ 23:00 by Valeri Mcintosh RN) H/O cervical spine surgery ?Z98.890 - Other specified postprocedural states (ICD-10) H/O heart artery stent ?Z95.5 - Presence of coronary angioplasty implant and graft (ICD-10) History of carpal tunnel surgery ?Z98.890 - Other specified postprocedural states (ICD-10) History of gastrointestinal surgery ?Z98.890 - Other specified postprocedural states (ICD-10) History of tonsillectomy ?Z90.89 - Acquired absence of other organs (ICD-10) Previous back surgery ?Z98.890 - Other specified postprocedural states (ICD-10) Family History (Updated 10/15/23 @ 17:31 by Frida Brito) Other Family history not known due to adoption Social History (Updated 10/04/23 @ 13:39 by Modesta Hendrix RN) Smoking status: Heavy tobacco smoker Gender Identity: female Meds Home Medications and Allergies Home Medications Medication Instructions Recorded Confirmed Type apixaban 5 mg tablet (Eliquis) 5 mg PO BID 10/04/23 10/15/23 History clopidogrel 75 mg tablet 75 mg PO DAILY 10/04/23 10/15/23 History digoxin 250 mcg (0.25 mg) tablet 250 mcg PO .QD 10/04/23 10/15/23 History insulin aspart U-100 100 unit/mL 1 sliding scale dose subcut ACHS 10/04/23 10/15/23 History (3 mL) subcutaneous pen (Novolog FlexPen U-100 Insulin aspart) insulin glargine 100 unit/mL (3 36 unit subcut BID 10/04/23 10/15/23 History mL) subcutaneous pen (Basaglar KwikPen U-100 Insulin) metoprolol tartrate 25 mg tablet 25 mg PO Q12H 10/04/23 10/15/23 History tizanidine 4 mg tablet 4 mg PO Q12H PRN muscle spasticity 10/04/23 10/15/23 History diltiazem HCl 240 mg 240 mg PO Q24H #30 caps 10/08/23 10/15/23 Rx capsule,extended release 24 hr (Cardizem CD) furosemide 20 mg tablet (Lasix) 20 mg PO DAILY #30 tabs 10/08/23 10/15/23 Rx levofloxacin 500 mg tablet 500 mg PO DAILY 14 days #14 tabs 10/08/23 10/15/23 Rx magnesium oxide 400 mg (241.3 mg 400 mg PO BID #60 tabs 10/08/23 10/15/23 Rx magnesium) tablet atorvastatin 80 mg tablet (Lipitor) 80 mg PO QPM 10/15/23 10/15/23 History duloxetine 60 mg capsule,delayed 60 mg PO BID 10/15/23 10/15/23 History release (Cymbalta) nifedipine 30 mg tablet,extended 30 mg PO DAILY 10/15/23 10/15/23 History release 24 hr (Procardia XL) Allergies Allergy/AdvReac Type Severity Reaction Status Date / Time Sulfa (Sulfonamide AdvReac Severe Nausea Verified 10/04/23 09:57 Antibiotics) Exam Constitutional Vital Signs, click to edit/add: Last Vital Signs Temp 97.6 F 10/16/23 12:49 Pulse 53 L 10/16/23 13:53 Resp 16 10/16/23 12:49 BP 141/66 11/21/23 12:49 Pulse Ox 95 10/16/23 13:53 O2 Del Method Nasal Cannula 10/16/23 12:57 O2 Flow Rate 5 10/16/23 12:57 Results Labs and Meds Lab results: Cardiac Enzymes 10/15/23 10/16/23 Range/Units 19:30 05:08 AST 74 H 42 H (15-37) U/L CBC 10/15/23 10/16/23 Range/Units 19:30 05:08 WBC 15.5 H 13.1 H (4.0-11.0) 10^3/uL RBC 3.54 L 3.44 L (4.20-5.40) 10^6/uL Hgb 9.9 L 9.6 L (12.0-16.0) g/dL Hct 31.9 L 30.7 L (36.0-48.0) % Plt Count 337 312 (150-450) 10^3/uL Neut # (Auto) 12.7 H 10.8 H (1.4-6.5) 10^3/uL Lymph # (Auto) 1.3 1.1 L (1.2-3.8) 10^3/uL [place] # (Auto) 1.1 H 0.9 H (0.3-0.8) 10^3/uL Eos # (Auto) 0.0 0.0 (0.0-0.7) 10^3/uL Baso # (Auto) 0.1 0.1 (0.0-0.1) 10^3/uL Comprehensive Metabolic Panel 10/15/23 10/16/23 Range/Units 19:30 05:08 Sodium 132 L 135 L (136-145) mmol/L Potassium 4.9 4.2 (3.5-5.1) mmol/L Chloride 98 100 (98-107) mmol/L Carbon Dioxide 24.1 23.9 (21.0-32.0) mmol/L BUN 34.0 H 32.0 H (7.0-18.0) mg/dL Creatinine 2.00 H 1.87 H (0.55-1.02) mg/dL Glucose 114 H 42 L* (74-106) mg/dL Calcium 8.3 L 8.3 L (8.5-10.1) mg/dL AST 74 H 42 H (15-37) U/L ALT 62 H 51 (14-59) U/L Alkaline Phosphatase 245 H 209 H (46-116) U/L Total Protein 6.8 6.5 (6.4-8.2) g/dL Albumin 2.3 L 2.2 L (3.4-5.0) g/dL Intake and Output 10/15/23 10/16/23 10/16/23 23:59 07:59 15:59 Intake Total 540 / 3102 2562 / 3102 Output Total 1225 / 5025 3800 / 5025 2550 / 2550 Balance -685 / -1923 -1238 / -1923 -2550 / -2550 Intake: Oral 540 / 1000 460 / 1000 Other 1902 / 1902 IV 200 / 200 Bumetanide 10 mg In 0.9 % 200 / 200 Sodium Chloride 160 ml @ 20 mls /hr IV ONCE ONE Rx#:[id number] Output: Urine 1225 / 1225 Urine Amount (Catheter) 3800 / 3800 2550 / 2550 Urethral 3800 / 3800 2550 / 2550 Other: Other Intake Source Saline Solution Weight 122.5 kg 42.9 kg Assessment and Plan Assessment and Plan (1) Acute congestive heart failure: (2) Acute kidney injury: (3) Atrial fibrillation: (4) Diabetes: (5) Hypertension:
--- NOTE | 2023-10-16 15:46 | PM.CACN ---
History of Present Illness History of Present Illness Chief complaint: FLUID OVERLOAD Narrative: Ilsa Faria is a 58-year-old female with past medical history of CAD s/p PCI to RCA (12/05/2011), abnormal stress in 03/2023 with subsequent coronary angiogram with PCI to mRCA and circumflex (05/15/22), atrial flutter,HFpEF, PVD, HLD, type 2 DM, and hypertension who presented for evaluation and management of worsening lower extremity edema and dyspnea. She was recently admitted and discharged on following treatments for UTI bacteremia, pneumonia, decompensated heart failure and KIRSTIN. She presented on 09/14 and is admitted with hypoxic respiratory faliure and KIRSTIN, cardiology has been consulted to assist with management. Review of Systems ROS Cardiovascular Reports: palpitations, swelling of feet/ankles and shortness of breath with exertion Respiratory Reports: shortness of breath PFSH [facility] Medical History (Updated 10/12/23 @ 00:00 by ) Acute congestive heart failure ?I50.9 - Heart failure, unspecified (ICD-10) Acute kidney injury ?N17.9 - Acute kidney failure, unspecified (ICD-10) Arthritis ?M19.90 - Unspecified osteoarthritis, unspecified site (ICD-10) Atrial fibrillation ?I48.91 - Unspecified atrial fibrillation (ICD-10) delivery delivered ?O82 - Encounter for delivery without indication (ICD-10) Diabetes ?E11.9 - Type 2 diabetes mellitus without complications (ICD-10) Elevated troponin level ?R79.89 - Other specified abnormal findings of blood chemistry (ICD-10) Hypertension ?I10 - Essential (primary) hypertension (ICD-10) Pneumonia ?J18.9 - Pneumonia, unspecified organism (ICD-10) Thrombocytopenia ?D69.6 - Thrombocytopenia, unspecified (ICD-10) UTI due to Klebsiella species ?N39.0 - Urinary tract infection, site not specified (ICD-10) ?B96.89 - Other specified bacterial agents as the cause of diseases classified elsewhere (ICD-10) Surgical History (Updated 10/04/23 @ 23:00 by Valeri Mcintosh RN) H/O cervical spine surgery ?Z98.890 - Other specified postprocedural states (ICD-10) H/O heart artery stent ?Z95.5 - Presence of coronary angioplasty implant and graft (ICD-10) History of carpal tunnel surgery ?Z98.890 - Other specified postprocedural states (ICD-10) History of gastrointestinal surgery ?Z98.890 - Other specified postprocedural states (ICD-10) History of tonsillectomy ?Z90.89 - Acquired absence of other organs (ICD-10) Previous back surgery ?Z98.890 - Other specified postprocedural states (ICD-10) Family History (Updated 10/15/23 @ 17:31 by Frida Brito) Other Family history not known due to adoption Social History (Updated 10/04/23 @ 13:39 by Modesta Hendrix RN) Smoking status: Heavy tobacco smoker Gender Identity: female Meds Home Medications and Allergies Home Medications Medication Instructions Recorded Confirmed Type apixaban 5 mg tablet (Eliquis) 5 mg PO BID 10/04/23 10/15/23 History clopidogrel 75 mg tablet 75 mg PO DAILY 10/04/23 10/15/23 History digoxin 250 mcg (0.25 mg) tablet 250 mcg PO .QD 10/04/23 10/15/23 History insulin aspart U-100 100 unit/mL 1 sliding scale dose subcut ACHS 10/04/23 10/15/23 History (3 mL) subcutaneous pen (Novolog FlexPen U-100 Insulin aspart) insulin glargine 100 unit/mL (3 36 unit subcut BID 10/04/23 10/15/23 History mL) subcutaneous pen (Basaglar KwikPen U-100 Insulin) metoprolol tartrate 25 mg tablet 25 mg PO Q12H 10/04/23 10/15/23 History tizanidine 4 mg tablet 4 mg PO Q12H PRN muscle spasticity 10/04/23 10/15/23 History diltiazem HCl 240 mg 240 mg PO Q24H #30 caps 10/08/23 10/15/23 Rx capsule,extended release 24 hr (Cardizem CD) furosemide 20 mg tablet (Lasix) 20 mg PO DAILY #30 tabs 10/08/23 10/15/23 Rx levofloxacin 500 mg tablet 500 mg PO DAILY 14 days #14 tabs 10/08/23 10/15/23 Rx magnesium oxide 400 mg (241.3 mg 400 mg PO BID #60 tabs 10/08/23 10/15/23 Rx magnesium) tablet atorvastatin 80 mg tablet (Lipitor) 80 mg PO QPM 10/15/23 10/15/23 History duloxetine 60 mg capsule,delayed 60 mg PO BID 10/15/23 10/15/23 History release (Cymbalta) nifedipine 30 mg tablet,extended 30 mg PO DAILY 10/15/23 10/15/23 History release 24 hr (Procardia XL) Allergies Allergy/AdvReac Type Severity Reaction Status Date / Time Sulfa (Sulfonamide AdvReac Severe Nausea Verified 10/04/23 09:57 Antibiotics) Exam Constitutional Vital Signs, click to edit/add: Last Vital Signs Temp 97.6 F 10/16/23 12:49 Pulse 53 L 10/16/23 13:53 Resp 16 10/16/23 12:49 BP 141/66 10/16/23 12:49 Pulse Ox 95 10/16/23 13:53 O2 Del Method Nasal Cannula 10/16/23 12:57 O2 Flow Rate 5 10/16/23 12:57 Results Labs and Meds Lab results: Cardiac Enzymes 10/15/23 10/16/23 Range/Units 19:30 05:08 AST 74 H 42 H (15-37) U/L CBC 10/15/23 10/16/23 Range/Units 19:30 05:08 WBC 15.5 H 13.1 H (4.0-11.0) 10^3/uL RBC 3.54 L 3.44 L (4.20-5.40) 10^6/uL Hgb 9.9 L 9.6 L (12.0-16.0) g/dL Hct 31.9 L 30.7 L (36.0-48.0) % Plt Count 337 312 (150-450) 10^3/uL Neut # (Auto) 12.7 H 10.8 H (1.4-6.5) 10^3/uL Lymph # (Auto) 1.3 1.1 L (1.2-3.8) 10^3/uL [place] # (Auto) 1.1 H 0.9 H (0.3-0.8) 10^3/uL Eos # (Auto) 0.0 0.0 (0.0-0.7) 10^3/uL Baso # (Auto) 0.1 0.1 (0.0-0.1) 10^3/uL Comprehensive Metabolic Panel 10/15/23 10/16/23 Range/Units 19:30 05:08 Sodium 132 L 135 L (136-145) mmol/L Potassium 4.9 4.2 (3.5-5.1) mmol/L Chloride 98 100 (98-107) mmol/L Carbon Dioxide 24.1 23.9 (21.0-32.0) mmol/L BUN 34.0 H 32.0 H (7.0-18.0) mg/dL Creatinine 2.00 H 1.87 H (0.55-1.02) mg/dL Glucose 114 H 42 L* (74-106) mg/dL Calcium 8.3 L 8.3 L (8.5-10.1) mg/dL AST 74 H 42 H (15-37) U/L ALT 62 H 51 (14-59) U/L Alkaline Phosphatase 245 H 209 H (46-116) U/L Total Protein 6.8 6.5 (6.4-8.2) g/dL Albumin 2.3 L 2.2 L (3.4-5.0) g/dL Intake and Output 10/15/23 10/16/23 10/16/23 23:59 07:59 15:59 Intake Total 540 / 3102 2562 / 3102 Output Total 1225 / 5025 3800 / 5025 2550 / 2550 Balance -685 / -1923 -1238 / -1923 -2550 / -2550 Intake: Oral 540 / 1000 460 / 1000 Other 1902 / 1902 IV 200 / 200 Bumetanide 10 mg In 0.9 % 200 / 200 Sodium Chloride 160 ml @ 20 mls /hr IV ONCE ONE Rx#:[id number] Output: Urine 1225 / 1225 Urine Amount (Catheter) 3800 / 3800 2550 / 2550 Urethral 3800 / 3800 2550 / 2550 Other: Other Intake Source Saline Solution Weight 122.5 kg 42.9 kg Assessment and Plan Assessment and Plan (1) Acute congestive heart failure: (2) Acute kidney injury: (3) Atrial fibrillation: (4) Diabetes: (5) Hypertension:
--- NOTE | 2023-10-16 15:58 | P.CACN_ITS ---
History of Present Illness History of Present Illness Chief complaint: FLUID OVERLOAD Narrative: Ilsa Faria is a 58-year-old female with past medical history of CAD s/p PCI to RCA (12/05/2011), abnormal stress in 03/2023 with subsequent coronary angiogram with PCI to mRCA and circumflex (05/15/22), atrial flutter,HFpEF, PVD, HLD, type 2 DM, and hypertension who presented for evaluation and management of worsening lower extremity edema and dyspnea. She was recently admitted and discharged on following treatments for UTI bacteremia, pneumonia, decompensated heart failure and KIRSTIN. She presented on 09/14 and is admitted with hypoxic respiratory faliure and KIRSTIN, cardiology has been consulted to assist with management. Review of Systems ROS Cardiovascular Reports: palpitations, swelling of feet/ankles and shortness of breath with exertion Respiratory Reports: shortness of breath PFSH [facility] Medical History (Updated 10/16/23 @ 15:58 by Rex Villalba NP) Acute congestive heart failure ?I50.9 - Heart failure, unspecified (ICD-10) Acute kidney injury ?N17.9 - Acute kidney failure, unspecified (ICD-10) Arthritis ?M19.90 - Unspecified osteoarthritis, unspecified site (ICD-10) Atrial fibrillation ?I48.91 - Unspecified atrial fibrillation (ICD-10) delivery delivered ?O82 - Encounter for delivery without indication (ICD-10) Diabetes ?E11.9 - Type 2 diabetes mellitus without complications (ICD-10) Elevated troponin level ?R79.89 - Other specified abnormal findings of blood chemistry (ICD-10) Hypertension ?I10 - Essential (primary) hypertension (ICD-10) Pneumonia ?J18.9 - Pneumonia, unspecified organism (ICD-10) Thrombocytopenia ?D69.6 - Thrombocytopenia, unspecified (ICD-10) UTI due to Klebsiella species ?N39.0 - Urinary tract infection, site not specified (ICD-10) ?B96.89 - Other specified bacterial agents as the cause of diseases classified elsewhere (ICD-10) Surgical History (Updated 10/04/23 @ 23:00 by Valeri Mcintosh RN) H/O cervical spine surgery ?Z98.890 - Other specified postprocedural states (ICD-10) H/O heart artery stent ?Z95.5 - Presence of coronary angioplasty implant and graft (ICD-10) History of carpal tunnel surgery ?Z98.890 - Other specified postprocedural states (ICD-10) History of gastrointestinal surgery ?Z98.890 - Other specified postprocedural states (ICD-10) History of tonsillectomy ?Z90.89 - Acquired absence of other organs (ICD-10) Previous back surgery ?Z98.890 - Other specified postprocedural states (ICD-10) Family History (Updated 10/15/23 @ 17:31 by Frida Brito) Other Family history not known due to adoption Social History (Updated 10/04/23 @ 13:39 by Modesta Hendrix RN) Smoking status: Heavy tobacco smoker Gender Identity: female Meds Home Medications and Allergies Home Medications Medication Instructions Recorded Confirmed Type apixaban 5 mg tablet (Eliquis) 5 mg PO BID 10/04/23 10/15/23 History clopidogrel 75 mg tablet 75 mg PO DAILY 10/04/23 10/15/23 History digoxin 250 mcg (0.25 mg) tablet 250 mcg PO .QD 10/04/23 10/15/23 History insulin aspart U-100 100 unit/mL 1 sliding scale dose subcut ACHS 10/04/23 10/15/23 History (3 mL) subcutaneous pen (Novolog FlexPen U-100 Insulin aspart) insulin glargine 100 unit/mL (3 36 unit subcut BID 10/04/23 10/15/23 History mL) subcutaneous pen (Basaglar KwikPen U-100 Insulin) metoprolol tartrate 25 mg tablet 25 mg PO Q12H 10/04/23 10/15/23 History tizanidine 4 mg tablet 4 mg PO Q12H PRN muscle spasticity 10/04/23 10/15/23 History diltiazem HCl 240 mg 240 mg PO Q24H #30 caps 10/08/23 10/15/23 Rx capsule,extended release 24 hr (Cardizem CD) furosemide 20 mg tablet (Lasix) 20 mg PO DAILY #30 tabs 10/08/23 10/15/23 Rx levofloxacin 500 mg tablet 500 mg PO DAILY 14 days #14 tabs 10/08/23 10/15/23 Rx magnesium oxide 400 mg (241.3 mg 400 mg PO BID #60 tabs 10/08/23 10/15/23 Rx magnesium) tablet atorvastatin 80 mg tablet (Lipitor) 80 mg PO QPM 10/15/23 10/15/23 History duloxetine 60 mg capsule,delayed 60 mg PO BID 10/15/23 10/15/23 History release (Cymbalta) nifedipine 30 mg tablet,extended 30 mg PO DAILY 10/15/23 10/15/23 History release 24 hr (Procardia XL) Allergies Allergy/AdvReac Type Severity Reaction Status Date / Time Sulfa (Sulfonamide AdvReac Severe Nausea Verified 10/04/23 09:57 Antibiotics) Exam Constitutional Vital Signs, click to edit/add: Last Vital Signs Temp 97.6 F 10/16/23 12:49 Pulse 53 L 10/16/23 13:53 Resp 16 10/16/23 12:49 BP 141/66 10/16/23 12:49 Pulse Ox 95 10/16/23 13:53 O2 Del Method Nasal Cannula 10/16/23 12:57 O2 Flow Rate 5 10/16/23 12:57 Results Labs and Meds Lab results: Cardiac Enzymes 10/15/23 10/16/23 Range/Units 19:30 05:08 AST 74 H 42 H (15-37) U/L CBC 10/15/23 10/16/23 Range/Units 19:30 05:08 WBC 15.5 H 13.1 H (4.0-11.0) 10^3/uL RBC 3.54 L 3.44 L (4.20-5.40) 10^6/uL Hgb 9.9 L 9.6 L (12.0-16.0) g/dL Hct 31.9 L 30.7 L (36.0-48.0) % Plt Count 337 312 (150-450) 10^3/uL Neut # (Auto) 12.7 H 10.8 H (1.4-6.5) 10^3/uL Lymph # (Auto) 1.3 1.1 L (1.2-3.8) 10^3/uL [place]in # (Auto) 1.1 H 0.9 H (0.3-0.8) 10^3/uL Eos # (Auto) 0.0 0.0 (0.0-0.7) 10^3/uL Baso # (Auto) 0.1 0.1 (0.0-0.1) 10^3/uL Comprehensive Metabolic Panel 10/15/23 10/16/23 Range/Units 19:30 05:08 Sodium 132 L 135 L (136-145) mmol/L Potassium 4.9 4.2 (3.5-5.1) mmol/L Chloride 98 100 (98-107) mmol/L Carbon Dioxide 24.1 23.9 (21.0-32.0) mmol/L BUN 34.0 H 32.0 H (7.0-18.0) mg/dL Creatinine 2.00 H 1.87 H (0.55-1.02) mg/dL Glucose 114 H 42 L* (74-106) mg/dL Calcium 8.3 L 8.3 L (8.5-10.1) mg/dL AST 74 H 42 H (15-37) U/L ALT 62 H 51 (14-59) U/L Alkaline Phosphatase 245 H 209 H (46-116) U/L Total Protein 6.8 6.5 (6.4-8.2) g/dL Albumin 2.3 L 2.2 L (3.4-5.0) g/dL Intake and Output 10/15/23 10/16/23 10/16/23 23:59 07:59 15:59 Intake Total 540 / 3102 2562 / 3102 Output Total 1225 / 5025 3800 / 5025 2550 / 2550 Balance -685 / -1923 -1238 / -1923 -2550 / -2550 Intake: Oral 540 / 1000 460 / 1000 Other 1902 / 1902 IV 200 / 200 Bumetanide 10 mg In 0.9 % 200 / 200 Sodium Chloride 160 ml @ 20 mls /hr IV ONCE ONE Rx#:[id number] Output: Urine 1225 / 1225 Urine Amount (Catheter) 3800 / 3800 2550 / 2550 Urethral 3800 / 3800 2550 / 2550 Other: Other Intake Source Saline Solution Weight 122.5 kg 42.9 kg Assessment and Plan Assessment and Plan (1) Acute congestive heart failure: Assessment and Plan: Decompensated heart failure [facility] III/IV She is diuresing well with net -4.4 L documented since admission On IV Bumex per primary team Heart renal function is improving with diuresis, consider nephrology consultation if worsens or inadequate response to current diuretics. She is not a candidate for SGLT2 inhibition or MRA at this time in setting of resolving acute kidney injury. Recommend follow-up within a week of discharge with primary tank calibrator Dr. Jc through the [facility]. Qualifiers: Heart failure type: diastolic Qualified Code(s): I50.31 - Acute diastolic (congestive) heart failure (2) Acute kidney injury: Assessment and Plan: Improving with diuresis, consider nephrology consultation if worsens. (3) Atrial fibrillation: Assessment and Plan: Continue metoprolol, digoxin and Eliquis for anticoagulation. (4) Diabetes: (5) Hypertension:
[2023-10-16 18:12] LABS: Glucometer 244 mg/dL (74-106)
[2023-10-16 20:20] LABS: Glucometer 243 mg/dL (74-106)
[2023-10-16] MEDS: ATORVASTATIN CALCIUM 40 MG TABLET 80 MG PO (20:36)
[2023-10-16] MEDS: INSULIN DETEMIR 300 UNIT/3 ML INSULN.PEN 36 UNIT SUBQ (20:36)
[2023-10-16] MEDS: TIZANIDINE HCL 4 MG TABLET PO (20:36)
[2023-10-16] MEDS: ACETAMINOPHEN 500 MG TABLET 1000 MG PO (20:36)
[2023-10-17] VITALS (16 sets, daily range): BP systolic 120–150; BP diastolic 52–61; PULSE 47–78; RESP 16–18; TEMP 36.2–36.7; O2SAT 90–95
[2023-10-17 01:15] LABS: Bilirubin Urine NEGATIVE (NEGATIVE); Blood Urine MODERATE (NEGATIVE); Clarity Urine CLEAR (CLEAR); Color Urine LT. YELLOW (YELLOW); Glucose Urine UA NEGATIVE (NEGATIVE); Ketones Urine NEGATIVE (NEGATIVE); Leukocyte Esterase Urine NEGATIVE (NEGATIVE); Nitrite Urine NEGATIVE (NEGATIVE); Protein Urine NEGATIVE (NEG/TRACE); Urobilinogen Urine 0.2 EU/dL (0.2-1.0); pH Urine 5.5 (5.0-9.0)
[2023-10-17 01:17] LABS: Urine Microscopic Indicated YES
[2023-10-17 01:22] LABS: Bacteria Urine NONE SEEN #/HPF (NONE SEEN); RBC Urine 0-2 #/HPF (0-2)
[2023-10-17 01:23] LABS: Cast Seen? SEEN #/LPF (NONE SEEN); Crystals Seen? None Seen #/HPF (None Seen); Hyaline Casts Urine RARE; Mucus Urine NONE SEEN (NONE SEEN); Squamous Epithelial Cell Urine FEW #/LPF (NONE/RARE); Urine Culture Indicated NO
[2023-10-17 05:38] LABS: Basophils Absolute Auto 0.1 10^3/uL (0.0-0.1); Basophils Percent Auto 1.1 % (0.2-2.0); Eosinophils Absolute Auto 0.1 10^3/uL (0.0-0.7); Eosinophils Percent Auto 0.5 % (0.9-7.0); Hematocrit 30.2 % (36.0-48.0); Hemoglobin 9.3 g/dL (12.0-16.0); Immature Granulocytes Abs Auto 0.08 10^3/uL (0.00-0.03); Immature Granulocytes Pct Auto 0.9 % (0.0-0.5); Lymphocytes Absolute Auto 1.3 10^3/uL (1.2-3.8); Lymphocytes Percent Auto 14.2 % (20.5-60.0); Mean Corpuscular HGB Conc 30.8 g/dL (29.9-35.2); Mean Corpuscular Hemoglobin 27.5 pg (26.7-34.0); Mean Corpuscular Volume 89.3 fL (81.0-99.0); Mean Platelet Volume 11.5 fL (9.5-13.5); Monocytes Absolute Auto 0.8 10^3/uL (0.3-0.8); Neutrophils Absolute Auto 6.9 10^3/uL (1.4-6.5); Neutrophils Percent Auto 74.3 % (43.0-75.0); Platelet Count 287 10^3/uL (150-450); Red Blood Count 3.38 10^6/uL (4.20-5.40); Red Cell Distribution Width 16.5 % (11.0-15.0); White Blood Count 9.3 10^3/uL (4.0-11.0)
[2023-10-17 06:00] LABS: Alanine Aminotransferase 42 U/L (14-59); Albumin Globulin Ratio 0.5; Alkaline Phosphatase 183 U/L (46-116); Anion Gap 13.5; Aspartate Amino Transferase 28 U/L (15-37); BUN Creatinine Ratio 16.7; Bilirubin Total 0.5 mg/dL (0.2-1.0); Calcium 8.3 mg/dL (8.5-10.1); Carbon Dioxide 26.9 mmol/L (21.0-32.0); Chloride 98 mmol/L (98-107); Estimated GFR (African America 29 (>=60); Estimated GFR (Non-African Ame 24 (>=60); Globulin 4.3 g/dL; Glucose 117 mg/dL (74-106); Potassium 4.4 mmol/L (3.5-5.1); Sodium 134 mmol/L (136-145); Total Protein 6.3 g/dL (6.4-8.2)
--- NOTE | 2023-10-17 08:52 | CM.NOTE ---
Spoke with pt about [facility] will not accept for HH services, pt would like to try [facility]. Clinical faxed to [facility].
--- NOTE | 2023-10-17 08:59 | XR_ITS ---
[address] [address] Patient Name: DOROTHY ADAMS MRN: [id number] date: 1965 Sex: F Assigned Patient Location: [place] Current Patient Location: [place] Accession/Order Number: [id number] Exam Date: 10/17/2023 09:10 Report Date: 10/17/2023 10:07 At the request of: CARY BENTON Procedure: XR chest 2V EXAMINATION: XR chest 2V HISTORY: hypoxia COMPARISON: XR chest 10/15/2023, 10/04/2023 FINDINGS: LUNGS: Patchy and confluent opacities within right lung base partially obscuring the diaphragm margin. Mild haziness and stranding within left lateral costophrenic angle. VASCULATURE: No increased pulmonary vasculature. PLEURA: No pneumothorax, effusion, or pleural thickening. CARDIAC: No cardiomegaly or cardiac silhouette abnormality. MEDIASTINUM: No visible mass or adenopathy. BONES: No fracture or visible bone lesion. OTHER: Negative. XR/XR chest 2V IMPRESSION: 1. Mild bibasilar infiltrates suggestive of pneumonia; right greater than left. Electronically authenticated by: LAZARUS PARRA Date: 10/17/2023 10:07
--- NOTE | 2023-10-17 09:06 | P.PN_ITS ---
Progress Note: Subjective Subjective Interval history: Patient states her breathing is not much improved today Exam Constitutional Vital Signs, click to edit/add: Last Vital Signs Temp 97.7 F 10/17/23 05:00 Pulse 64 10/17/23 07:56 Resp 18 10/17/23 05:00 BP 150/61 H 10/17/23 05:00 Pulse Ox 93 L 10/17/23 05:00 O2 Del Method Nasal Cannula 10/17/23 05:00 O2 Flow Rate 2 10/17/23 05:00 Progress Note: Objective Labs Labs: Short CBC 10/17/23 Range/Units 05:00 WBC 9.3 (4.0-11.0) 10^3/uL Hgb 9.3 L (12.0-16.0) g/dL Hct 30.2 L (36.0-48.0) % Plt Count 287 (150-450) 10^3/uL BMP 10/17/23 05:00 Sodium 134 L Potassium 4.4 Chloride 98 Carbon Dioxide 26.9 BUN 35.0 H Creatinine 2.10 H Glucose 117 H Calcium 8.3 L Liver Function 10/17/23 Range/Units 05:00 Total Bilirubin 0.5 (0.2-1.0) mg/dL AST 28 (15-37) U/L ALT 42 (14-59) U/L Alkaline Phosphatase 183 H (46-116) U/L Albumin 2.0 L (3.4-5.0) g/dL Urine 10/17/23 Range/Units 00:04 Urine Color Lt. yellow (YELLOW) Urine Clarity Clear (CLEAR) Urine pH 5.5 (5.0-9.0) Ur Specific [place] 1.010 (1.005-1.025) Urine Protein Negative (NEG/TRACE) mg/dL Urine Glucose (UA) Negative (NEGATIVE) mg/dL Progress Note: A&P Assessment and Plan (1) Acute congestive heart failure: Qualifiers: Heart failure type: diastolic Qualified Code(s): I50.31 - Acute diastolic (congestive) heart failure (2) Acute kidney injury: (3) Atrial fibrillation: (4) Diabetes: (5) Hypertension:
--- NOTE | 2023-10-17 09:23 | CM.NOTE ---
Rounds made with Dr. Santos. Dr. Santos to add steroids today and repeat CXR. Would like further input from Cardiology as well. No plan for discharge today.
--- NOTE | 2023-10-17 09:49 | CM.NOTE ---
[facility] will accept pt for HH services, updated pt. [facility] requesting SNF order today d/t Holiday tomorrow. SNF form sent with orders.
--- NOTE | 2023-10-17 09:59 | P.CAPN_ITS ---
Discussed with APPLICATIONS INSTRUCTOR Alma Rosa Brandon. I agree with the above assessment and plan. Progress Note: A&P Assessment and Plan (1) Acute congestive heart failure: Assessment and Plan: [facility] III-IV, currently pt is quite volume overloaded, Dyspneic, and orthopneic Bumex infusion DC'd r/t worsening renal function/ KIRSTIN, will order bumex 1 mg IV bid and had d/w Dr Santos r/t possible transfer to higher level of care at [facility] for aggressive diuresis, her typical cardiology group and nephrology consult for assistance with diuresis. Pt may need Rt heart cath to assess cardiac function and rt sided pressures. Acid Base balance remains stable and electrolytes normal D/W pt to limit fluid intake to 1.5 L/day, continue daily weights, strict I&O, monitor renal function daily and electrolytes, please maintain K+ >4 and Mag> 2 Qualifiers: Heart failure type: diastolic Qualified Code(s): I50.31 - Acute diastolic (congestive) heart failure (2) Acute kidney injury: Assessment and Plan: Recommend nephrology consult to management of KIRSTIN on CKD (3) Atrial fibrillation: Assessment and Plan: Continue eliquis anticoagulation and heart rate controlled currently with diltiazem, and metoprolol. (4) Diabetes: Assessment and Plan: per primary service (5) Hypertension: Assessment and Plan: Remains uncontrolled therefore increased cardizem to 300 mg daily Plan as above CXR today- Procedure: XR chest 2V EXAMINATION: XR chest 2V HISTORY: hypoxia COMPARISON: XR chest 10/15/2023, 10/04/2023 FINDINGS: LUNGS: Patchy and confluent opacities within right lung base partially obscuring the diaphragm margin. Mild haziness and stranding within left lateral costophrenic angle. VASCULATURE: No increased pulmonary vasculature. PLEURA: No pneumothorax, effusion, or pleural thickening. CARDIAC: No cardiomegaly or cardiac silhouette abnormality. MEDIASTINUM: No visible mass or adenopathy. BONES: No fracture or visible bone lesion. OTHER: Negative. XR/XR chest 2V IMPRESSION: 1. Mild bibasilar infiltrates suggestive of pneumonia; right greater than left. Electronically authenticated by: LAZARUS PARRA Date: 10/17/2023 10:07 10/04/23 Echo LEFT VENTRICLE: Normal chamber size. Mild left ventricular hypertrophy. LV EF: Global left ventricular systolic function is normal; visually estimated ejection fraction 60 to 65%. No obvious wall motion abnormalities. DIASTOLIC: Grade II, moderate diastolic dysfunction. ATRIAL SEPTUM: Visually appears intact. LEFT ATRIUM: Normal chamber size. RIGHT ATRIUM: Mild dilatation. RIGHT VENTRICLE: Normal chamber size. Systolic function is difficult to assess but appears reduced. TRICUSPID VALVE: Normal mobility and thickness. Mild regurgitation. Doppler studies reveal mildly (35-45) elevated right sided pressures. RVSP 43 mmHg MITRAL VALVE: Normal mobility and thickness. Moderate mitral annular calcification. Trivial mitral regurgitation. AORTIC VALVE: Normal trileaflet appearance. Mildly calcified aortic valve. Doppler velocity suggests no significant aortic valve stenosis. DVI 0.5, ANGELICA 2.0 cm2. No aortic regurgitation. AORTIC ROOT: Normal diameter and appearance. PULMONIC VALVE: Normal thickness and mobility. No stenosis. Trivial regurgitation. PERICARDIUM: No evidence of pericardial effusion. IVC: IVC is dilated (2.5 cm) with no collapse. CONCLUSION: 1. Global left ventricular systolic function is normal; visually estimated ejection fraction is 60 to 65% 2. Mildly increased left ventricular wall thickness 3. The right ventricle is normal in size with reduced systolic function 4. The right atrium is enlarged 5. Mild tricuspid regurgitation; mildly elevated right ventricular systolic pressure 6. E/E' consistent with volume overload Alma Rosa Brandon [facility] Cardiology Subjective Subjective Principal diagnosis: Acute on chronic diastolic heart failure, [facility] III-IV Interval history: Assessed at bedside and pt is currently up sitting in chair. Admits significant orthopnea and JIMENEZ- with walking to bathroom and occasionally with speaking. States that currently she is about 40-50 pounds overweight since the beginning of this summer r/t water retention. Denied chest pain, fever, chills, N/V/D, lightheadedness or dizziness. Currently she has been diuresing well with bumex infusion and is about 10 liters net negative since admit and down 10 pounds, but her renal function is worsening today. Exam Constitutional Vital Signs, click to edit/add: Last Vital Signs Temp 97.7 F 10/17/23 05:00 Pulse 69 10/17/23 09:58 Resp 18 10/17/23 05:00 BP 150/61 H 10/17/23 05:00 Pulse Ox 93 L 10/17/23 05:00 O2 Del Method Nasal Cannula 10/17/23 05:00 O2 Flow Rate 2 10/17/23 05:00 Documenting provider has reviewed patient's vital signs: yes Common normals: oriented x3 and alert General appearance: cooperative, ill appearing and grossly edematous Nutritional appearance: obese Orientation/consciousness: Yes awake, Yes oriented to person, Yes oriented to place and Yes oriented to time Respiratory Common normals: no retractions and no use of accessory muscles Effort & inspection: symmetric chest movement; not able to speak in complete sentences (becomes dyspneic with speaking to provider) Auscultation: rales (B/L bases) and rhonchi (scattered throughout lung paula) Cardio Common normals: S1 normal heart sound, S2 normal heart sound and peripheral pulses 2+ throughout (B/L DP and PT pulses +3 palpable); JVD (unable to assess r/t body habitus) Rate: regular rate Rhythm: regular rhythm Extremity Common normals: normal capillary refill; clubbing, cyanosis or edema (BLE 3+pitting edema, hypertrophic skin changes and erythema/ venous congest) Psych Common normals: thought process normal, cooperative and affect normal Urinary Catheter Management Urinary Catheter Management Urethral: Cath placed during this visit: yes Urethral indwelling: Yes Reason for continuing: measure accurate output Insertion date: 10/15/23 Insertion time: 23:22
[2023-10-17] MEDS: DULOXETINE HCL 60 MG CAPSULE.DR PO (10:18)
[2023-10-17] MEDS: MAGNESIUM OXIDE 400 MG TABLET PO (10:18)
[2023-10-17] MEDS: CLOPIDOGREL BISULFATE 75 MG TABLET PO (10:19)
[2023-10-17] MEDS: ACETAMINOPHEN 500 MG TABLET 1000 MG PO (10:19)
[2023-10-17] MEDS: METOPROLOL TARTRATE 25 MG TABLET PO (10:19)
[2023-10-17] MEDS: DEXAMETHASONE SOD PHOS 4 MG/ML VIAL 10 MG IV (10:19)
[2023-10-17] MEDS: APIXABAN 5 MG TABLET PO (10:19)
--- NOTE | 2023-10-17 10:37 | CM.NOTE ---
[facility] now calling back and final insurance check came back and unable to accept pt.
--- NOTE | 2023-10-17 10:51 | PT.DAILY ---
Physical Therapy Daily Note PT Daily Note/Assess Start: 10/17/23 10:45 Freq: Status: Active Protocol: Document 10/17/23 10:47 ROSARIO (Rec: 10/17/23 10:51 ROSARIO [id number]) Physical Therapy Daily Note/Assessment Time In/Time Out Time In 09:07 Time Out 09:17 Pain In Pain N/A Pain Out Pain N/A Subjective Subjective Supine upon arrival. Reports back pain - history of back surgeries. Agrees to get up with PT. Therapeutic Activity Time Therapeutic Activity Minutes (minutes) 8 Therapeutic Activity Units 1 Therapeutic Activity Treatment Bed Mobility Ability Moderate Assist Chair Transfer Ability Contact Guard Assist Therapeutic Activity Comments Supine>sit ModA to advance upper body to sit EOB. Increased back pain with transfer. Sits EOB unsupported without LOB. Sit>stand from elevated bed to RW CGA with increased time needed. XRAY comes to get pt but is willing to wait while pt amb. Pt amb with RW 80' CGA for safety with WC to follow (xray). Pt is then transported down to radiology in . Total Physical Therapy Time Total Therapy Minutes 8 Total Physical Therapy Units 1 Summary Daily Note Summary Improved gait endurance. Increased assistance needed with bed mobility today. Pt refuses SNF at this time but I do believe it would be beneficial to return to PLOF if pt willing.
--- NOTE | 2023-10-17 10:56 | CM.NOTE ---
Pt going to be transferred, HH will be canceled at this time.
[2023-10-17 11:07] LABS: Glucometer 238 mg/dL (74-106)
[2023-10-17] MEDS: INSULIN ASPART 300 UNIT/3 ML PEN SUBQ (11:49)
[2023-10-17] MEDS: DOXYCYCLINE HYCLATE 100 MG in 0.9 % SODIUM CHLORIDE 100 ML IV (11:50)
[2023-10-17] MEDS: CEFTRIAXONE 2,000 MG in 0.9 % SODIUM CHLORIDE 100 ML 200 MG IV (13:05)
[2023-10-17] MEDS: DILTIAZEM HCL 300 MG CAP.ER.24H PO (13:05)
--- NOTE | 2023-10-17 15:46 | PC.NURSE ---
called report to kriss talavera to nurse John BURNETT at this time.
[2023-10-17 16:56] LABS: Glucometer 339 mg/dL (74-106)
[2023-10-17] MEDS: BUMETANIDE 1 MG/4 ML VIAL IVP (17:02)
--- NOTE | 2023-10-17 18:43 | P.DS_ITS ---
DS: Providers Provider Date of admission: 10/16/23 08:48 Primary care physician: Paul Santos MD Consults: 10/15/23 18:40 Physical Therapy Eval and Treat Routine Reason for consultation: Eval and Treat Has provider been notified: No 10/16/23 13:06 Consult to Cardiology Routine Reason for consultation: chf Has provider been notified: No DS: Diagnosis Discharge Diagnosis (1) Acute congestive heart failure: Qualifiers: Heart failure type: diastolic Qualified Code(s): I50.31 - Acute diastolic (congestive) heart failure (2) Acute kidney injury: (3) Atrial fibrillation: (4) Diabetes: (5) Hypertension: Plan Shortness of breath, peripheral edema, orthopnea secondary to fluid overload and acute combined congestive heart failure with preserved ejection fraction with el evated BNP and hypoxic. Atrial fibrillation-continue with home medications rate well controlled Bilateral lower extremity cellulitis secondary to edema and diabetes mellitus Chronic pain s Diabetes mellitus Acute UTI Hypomagnesemia by history DS: Summary Hospital Course Hospital Course: Patient was seen and evaluated in the office with increasing weight gain. Persistent orthopnea. Although she not been able to lay flat for an extended period of time and it definitely has been worse lately. In office found to have significant lower extremity edema with possible cellulitis. Patient was atrial fibrillation was already anticoagulated so ultrasound was not completed. Patient was admitted for acute combined congestive heart failure with preserved ejection fraction. Here developed hypoxia. To the point of near requiring 2 L of nasal cannula supplementation oxygen. Patient was diuresed with a Bumex drip 1 mg/h for 10 hours was completed on the day of admission as well as yesterday. Patient diuresed 10 L over the 2 days. Consultation with cardiology agree with initial input and treatment. With elevation in her creatinine today was recommended that she be transferred to a tertiary care facility for right heart catheterization. We talked to [facility] in [facility] who agreed and recommended transfer to their facility for further workup and treatment. She is medically stable, not requiring intensive care unit. Does require heart catheterization. Unable to complete that here at her facility. Complicating factors are uncontrolled diabetes mellitus as well as lower extremity cellulitis secondary to the diabetes and the edema. We did adjust her IV antibiotics this morning. P.o. antibiotics for with Levaquin were ineffective. Levaquin is been effective in the past but not this time. Patient be transferred to tertiary care facility. I will follow-up with patient at discharge. Time Spent with Patient Time attestation: Total time spent providing and/or coordinating discharge services: Exam Constitutional Vital Signs, click to edit/add: Last Vital Signs Temp 97.1 F L 10/17/23 16:00 Pulse 54 L 10/17/23 16:00 Resp 18 10/17/23 16:00 BP 120/52 10/17/23 16:00 Pulse Ox 93 L 10/17/23 16:00 O2 Del Method Nasal Cannula 10/17/23 16:00 O2 Flow Rate 2 10/17/23 16:00 Documenting provider has reviewed patient's vital signs: yes Common normals: apparent distress (Mild respiratory distress) HENMT Common normals: moist oral mucous membranes Chest Common normals: inspection of chest normal Respiratory Common normals: normal respiratory effort (Mild respiratory distress with mild conversational dyspnea) Auscultation: rhonchi (Minimal rhonchi); no egophony Cardio Common normals: regular rate; irregular rhythm Rate: regular rate Rhythm: abnormal rhythm Extremity Other: 4+ edema bilateral lower extremities-is improved from initial admission. Erythema that is persisting. DS: Data Data Completed and Pending Labs on day of discharge: Labs from last 24 hours 10/17/23 10/17/23 10/17/23 16:54 11:06 05:00 WBC 9.3 RBC 3.38 L Hgb 9.3 L Hct 30.2 L MCV 89.3 MCH 27.5 MCHC 30.8 RDW 16.5 H Plt Count 287 MPV 11.5 Neut % (Auto) 74.3 Lymph % (Auto) 14.2 L Hubbard % (Auto) 9.0 Eos % (Auto) 0.5 L Baso % (Auto) 1.1 Neut # (Auto) 6.9 H Lymph # (Auto) 1.3 Hubbard # (Auto) 0.8 Eos # (Auto) 0.1 Baso # (Auto) 0.1 Abs Immat Gran (auto) 0.08 H Imm/Tot Granulo (auto) 0.9 H Sodium 134 L Potassium 4.4 Chloride 98 Carbon Dioxide 26.9 Anion Gap 13.5 BUN 35.0 H Creatinine 2.10 H Est GFR ( Amer) 29 L Est GFR (Non-Af Amer) 24 L BUN/Creatinine Ratio 16.7 Glucose 117 H Calcium 8.3 L Total Bilirubin 0.5 AST 28 ALT 42 Alkaline Phosphatase 183 H NT-Pro-B Natriuret Pep 3856.0 H* Total Protein 6.3 L Albumin 2.0 L Globulin 4.3 Albumin/Globulin Ratio 0.5 Urine Color Urine Clarity Urine pH Ur Specific [place] Urine Protein Urine Glucose (UA) Urine Ketones Urine Occult Blood Urine Nitrite Urine Bilirubin Urine Urobilinogen Ur Leukocyte Esterase Urine RBC Urine WBC Ur Squamous Epith Cells Urine Crystals Urine Bacteria Urine Casts Hyaline Casts Urine Mucus Ur Culture Indicated? Digoxin 2.0 POC Glucose 339 H 238 H 10/17/23 10/16/23 00:04 20:18 WBC RBC Hgb Hct MCV MCH MCHC RDW Plt Count MPV Neut % (Auto) Lymph % (Auto) [place] % (Auto) Eos % (Auto) Baso % (Auto) Neut # (Auto) Lymph # (Auto) Hubbard # (Auto) Eos # (Auto) Baso # (Auto) Abs Immat Gran (auto) Imm/Tot Granulo (auto) Sodium Potassium Chloride Carbon Dioxide Anion Gap BUN Creatinine Est GFR ( Amer) Est GFR (Non-Af Amer) BUN/Creatinine Ratio Glucose Calcium Total Bilirubin AST ALT Alkaline Phosphatase NT-Pro-B Natriuret Pep Total Protein Albumin Globulin Albumin/Globulin Ratio Urine Color Lt. yellow Urine Clarity Clear Urine pH 5.5 Ur Specific [place] 1.010 Urine Protein Negative Urine Glucose (UA) Negative Urine Ketones Negative Urine Occult Blood Moderate A Urine Nitrite Negative Urine Bilirubin Negative Urine Urobilinogen 0.2 Ur Leukocyte Esterase Negative Urine RBC 0-2 Urine WBC 2-5 A Ur Squamous Epith Cells Few A Urine Crystals None seen Urine Bacteria None seen Urine Casts Seen A Hyaline Casts Rare Urine Mucus None seen Ur Culture Indicated? No Digoxin POC Glucose 243 H Discharge Plan Discharge Disposition: [facility] Discharge Date/Time: 10/17/23 17:18
== END 2023-10-17 17:18 | disposition short-term general hospital (02) | DRG 291 ==
PROVIDERS: Admitting Provider Family Medicine; PCP Family Medicine; Visit Provider Family Medicine
DX: I11.0 Hypertensive heart disease with heart failure (principal); I50.31 Acute diastolic (congestive) heart failure; N17.9 Acute kidney failure, unspecified; N39.0 Urinary tract infection, site not specified; L03.116 Cellulitis of left lower limb; L03.115 Cellulitis of right lower limb; E11.628 Type 2 diabetes mellitus with other skin complications; E11.65 Type 2 diabetes mellitus with hyperglycemia; I48.91 Unspecified atrial fibrillation; R09.02 Hypoxemia; G89.29 Other chronic pain; E83.42 Hypomagnesemia; F17.200 Nicotine dependence, unspecified, uncomplicated; M19.90 Unspecified osteoarthritis, unspecified site; Z23 Encounter for immunization; Z79.02 Long term (current) use of antithrombotics/antiplatelets; Z79.1 Long term (current) use of non-steroidal anti-inflammatories (NSAID); Z88.2 Allergy status to sulfonamides; Z79.899 Other long term (current) drug therapy; Z79.4 Long term (current) use of insulin; Z79.01 Long term (current) use of anticoagulants; Z87.440 Personal history of urinary (tract) infections
CPT/HCPCS: 36415; 51702; 71046; 80053; 80162; 81001; 82948; 83735; 83880; 84484; 85025; 93308; 94667; 94668; 94761; 96365; 96366; 96367; 96375; 96376; 97161; 97530; G0328; G0378; J1170

== ENCOUNTER 2024-02-07 12:41 | Outpatient (OUT) | payer MEDICARE, SELFPAY ==
--- OUTSIDE RECORDS SUMMARY | 2024-02-07 13:03 | XMS_ITS | CCD ---
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 Name Role Phone ESTELA WOMACK Unavailable Unavailable ESTELA WOMACK Unavailable Unavailable CARY SANTOS Unavailable Unavailable CARY SANTOS Unavailable Unavailable [place] Unavailable Unavailable ESTELA WOMACK Unavailable Unavailable Cary Santos MD Primary Care Provider Nathan BRAMBILA Attending Unavailable Cary Yusuf Referring UnavailCary Adame Primary Care Physician Nathan BRAMBILA Attending Unavailable Cary Yusuf Referring UnavailNathan Flor Attending Unavailable Nathan BRAMBILA Attending Unavailable POPEYE KAUFFMAN Referring Unavailable POPEYE KAUFFMAN Attending Unavailable CHETAN ., DR TOWNSEND Admitting Unavailable HOIris ., DR TOWNSEND Attending Unavailable CHETAN ., DR TOWNSEND Consulting Unavailable CHETAN Gonzalez, DR TOWNSEND Primary Care Unavailable OSWEGO, DR MARIA LUISA Michaels Consulting Unavailable HOY ., DR TOWNSEND Admitting Unavailable HOY ., DR TOWNSEND Attending Unavailable HOY ., DR TOWNSEND Consulting Unavailable CHETAN ., DR TOWNSEND Primary Care Unavailable Lazarus Snow Consulting Unavailable CHETAN ., DR TOWNSEND Admitting Unavailable CHETAN ., DR TOWNSEND Attending Unavailable HOY ., DR TOWNSEND Consulting Unavailable CHETAN ., DR TOWNSEND Primary Care Unavailable Lazarus Snow Consulting Unavailable CHETAN ., DR TOWNSEND Attending Unavailable CHETAN ., DR TOWNSEND Consulting Unavailable CHETAN ., DR TOWNSEND Primary Care Unavailable CHETAN Gonzalez, DR TOWNSEND Admitting Unavailable Lazarus Snow Consulting Unavailable DAVID CAVANAUGH Consulting Unavailable MARINE GUERRERO Consulting Unavailable EMILIANA CURTIS Consulting Unavailable OSCARY ., DR TOWNSEND Admitting Unavailable HOY ., DR TOWNSEND Attending Unavailable HOY ., DR TOWNSEND Consulting Unavailable HOY ., DR TOWNSEND Primary Care Unavailable Lazarus Snow Consulting Unavailable HOY ., DR TOWNSEND Admitting Unavailable HOY ., DR TOWNSEND Attending Unavailable HOY ., DR TOWNSEND Consulting Unavailable HOY ., DR TOWNSEND Primary Care Unavailable HOY, CARY M Primary Care Unavailable HOY, CARY M Referring Unavailable LOUKA, SARAH BETH Admitting Unavailable TRA GASTON Attending Unavailable JOSE MORLEY Consulting Unavailable JONATHANBENTON S Consulting Unavailable EL-ATASSI, ROM Consulting Unavailable HOY, CARY M Primary Care Unavailable EL-ATASSI, ROM Admitting Unavailable EL-ATASSI, ROM Attending Unavailable HOY, CARY M Primary Care Unavailable EL-ATASSI, ROM Referring Unavailable Cary Santos MD Primary Care Provider [address] Attending Unavailable Drew'PRISCILLALUNA CORREA Referring Unavailable HOY, CARY M Primary Care Unavailable Drew'LUNA WELLS Attending Unavailable Drew'PRISCILLALUNA CORREA F Referring Unavailable HOY, CARY M Primary Care Unavailable Drew'LUNA WELLS Attending Unavailable Drew'PRISCILLALUNA CORREA Referring Unavailable HOY, CARY M Primary Care Unavailable EL-ATASSI, ROM Attending Unavailable EL-ATASSI, ROM Referring Unavailable HOY, CARY M Primary Care Unavailable HOY, CARY M Referring Unavailable HOY, CARY M Primary Care Unavailable Drew'LUNA WELLS Attending Unavailable Drew'LUNA WELLS F Referring Unavailable HOY, CARY M Primary Care Unavailable Allergies Allergy Classification Reported Allergen(s) Allergy Type Date of Onset Reaction(s) Facility (3 sources) Sulfonamides (Antibiotic); Translations: [SULFA (SULFONAMIDE ANTIBIOTICS)] Drug allergy (disorder) 2 [facility] (6 sources) Sulfonamides (Antibiotic) Propensity to adverse reactions to drug 2 [facility] (2 sources) Sulfonamides (Antibiotic); Translations: [sulfa drugs] Drug allergy Unknown (qualifier value) General [facility] Medications Current Medications Medication Drug Class(es) Dates Sig (Normalized) Sig (Original) [id number] 200 actuat albuterol 0.09 mg/actuat metered dose inhaler (6 sources) beta2-Adrenergic Agonist take 2 puff(s) by inhalation every six hours as needed for wheezing albuterol sulfate HFA (PROVENTIL;VENTOLI N;PROAIR) 108 (90 Base) MCG/ACT inhaler Inhale 2 puffs into the lungs every 6 hours as needed for Wheezing 0 Active albuterol HFA 90 mcg/inh MDI (1 source) Start: 08-25-2022 take 2 puff(s) by inhalation four times daily albuterol HFA 90 mcg/inh MDI 2 puff(s), Inhalation, QID Shortness of breath or wheezing, Refill(s) 0 Start Date: 08/25/22 Status: Ordered aluminum hydroxide 40 mg/ml / magnesium hydroxide 40 mg/ml / simethicone 4 mg/ml oral suspension (2 sources) Start: 10-24-2023 take 30 mL by mouth every six hours as needed aluminum & magnesium hydroxide-simethic one (MAALOX) 200-200-20 MG/5ML SUSP suspension Take 30 mLs by mouth every 6 hours as needed for Indigestion 300 mL 0 10/24/2023 Active apixaban 5 mg oral tablet (3 sources) Factor Xa Inhibitor Start: 08-14-2023 take 1 tablet by mouth twice daily apixaban (ELIQUIS) 5 MG TABS tablet Indications: Atrial flutter, unspecified type (HCC) Take 1 tablet by mouth 2 times daily 180 tablet 1 08/14/2023 Active aspirin 81 mg delayed release oral tablet (1 source) Platelet Aggregation Inhibitor, Nonsteroidal Anti-inflammatory Drug take 1 tablet by mouth once daily aspirin 81 MG EC tablet Take 81 mg by mouth daily 0 Active atorvastatin 80 mg oral tablet (7 sources) HMG-CoA Reductase Inhibitor Start: 09-20-2021 atorvastatin (LIPITOR) 80 MG tablet 60 actuat budesonide 0.16 mg/actuat / formoterol fumarate 0.0045 mg/actuat metered dose inhaler (6 sources) Corticosteroid, beta2-Adrenergic Agonist Start: 10-24-2021 SYMBICORT 160-4.5 MCG/ACT AERO bumetanide 0.5 mg oral tablet (2 sources) Loop Diuretic Start: 10-24-2023 take 1 tablet by mouth once daily bumetanide (BUMEX) 0.5 MG tablet Take 1 tablet by mouth daily 30 tablet 0 10/24/2023 Active carvedilol 6.25 mg oral tablet (6 sources) alpha-Adrenergic Janny, beta-Adrenergic Janny Start: 10-24-2023 take 1 tablet by mouth twice daily at mealtime carvedilol (COREG) 6.25 MG tablet Take 1 tablet by mouth 2 times daily (with meals) 60 tablet 3 10/24/2023 Active Start: 11-16-2021 carvedilol (CO REG) 6.25 MG tablet cholecalciferol 0.125 mg oral capsule (6 sources) Vitamin D Start: 11-12-2021 Cholecalciferol (VITAMIN D3) 125 MCG (5000 UT) CAPS clopidogrel 75 mg oral tablet (5 sources) P2Y12 Platelet Inhibitor Start: 09-21-2023 take 1 tablet by mouth once daily clopidogrel (PLAVIX) 75 MG tablet TAKE 1 TABLET BY MOUTH DAILY 90 tablet 3 09/21/2023 Active Start: 09-01-2022 take 1 tablet by roshan th once daily Plavix 75 mg Tab 75 mg = 1 tab(s), Oral, Daily, Refills(s) 0 Start Date: 09/01/22 Status: Ordered Start: 05-15-2022 take 1 tablet by roshan th once daily clopidogrel (PLAVIX) 75 MG tablet Take 1 tablet by mouth daily 30 tablet 3 05/15/2022 Active dofetilide 0.25 mg oral capsule (3 sources) Antiarrhythmic Start: 10-24-2023 take 1 capsule by mouth every twelve hours dofetilide (TIKOSYN) 250 MCG capsule Take 1 capsule by mouth every 12 hours 60 capsule 3 10/24/2023 Active DULoxetine 60 mg delayed release oral capsule (7 sources) Serotonin and Norepinephrine Reuptake Inhibitor Start: 08-25-2022 take 2 capsules by mouth once daily duloxetine 60 mg Cap-DR = 2 cap(s), Oral, Daily, Refills(s) 0 Start Date: 08/25/22 Status: Ordered Start: 11-20-2021 DULoxetine (CY MBALTA) 60 MG extended release capsule empagliflozin 10 mg oral tablet (3 sources) Sodium-Glucose Cotransporter 2 Inhibitor Start: 10-25-2023 take 1 tablet by mouth once daily empagliflozin (JARDIANCE) 10 MG tablet Take 1 tablet by mouth daily 30 tablet 3 10/25/2023 Active furosemide 40 mg oral tablet (2 sources) Loop Diuretic Start: 08-25-2022 take 1 tablet by mouth once daily Lasix 40 mg Tab 40 mg = 1 tab(s), Oral, Daily, Refills(s) 0 Start Date: 08/25/22 Status: Ordered take 1 tablet by mouth once tee y furosemide (LASIX) 40 MG tablet Take 40 mg by mouth daily 0 Active glimepiride 4 mg oral tablet (3 sources) Sulfonylurea Start: 08-28-2021 glimepiride (AMARYL) 4 MG tablet Insulin Aspart FlexPen (1 source) Start: 08-25-2022 Insulin Aspart FlexPen as directed, Refills(s) 0 Start Date: 08/25/22 Status: Ordered 3 ml insulin aspart, human 100 unt/ml cartridge (3 sources) Insulin Analog insulin aspart (NOVOLOG) 100 UNIT/ML injection cartridge Inject into the skin 3 times daily (before meals) 0 Active insulin glargine 100 unt/ml injectable solution (4 sources) Insulin Analog insulin glargine (LANTUS) 100 UNIT/ML injection vial Inject 36 Units into the skin nightly 0 Active Lantus Solostar Pen (1 source) Start: 08-25-2022 inject 30 [IU] by subcutaneous injection twice daily Lantus Solostar Pen 30 unit(s), SubCutaneous, BID, Refill(s) 0 Start Date: 08/25/22 Status: Ordered lisinopril 10 mg oral tablet (4 sources) Angiotensin Converting Enzyme Inhibitor Start: 08-25-2022 take 1 tablet by mouth once daily lisinopril 10 mg Tab 10 mg = 1 tab(s), Oral, Daily, Refills(s) 0 Start Date: 08/25/22 Status: Ordered Start: 11-05-2021 lisinopril (MN INIVIL;ZESTRIL) 10 MG tablet magnesium oxide 400 mg oral tablet (3 sources) take 1 tablet by mouth once daily magnesium oxide (MAG-OX) 400 (240 Mg) MG tablet Take 1 tablet by mouth daily 0 Active meloxicam 15 mg oral tablet (3 sources) Nonsteroidal Anti-inflammatory Drug Start: 09-21-20 meloxicam (MOBIC) 15 MG tablet 24 hr metFORMIN hydrochloride 500 mg extended release oral tablet (3 sources) Biguanide Start: 09-20-20 metFORMIN (GLUCOPHAGE-XR) 500 MG extended release tablet metoprolol tartrate 25 mg oral tablet (1 source) beta-Adrenergic Janny Start: 09-01-20 take 1 tablet by mouth twice daily Metoprolol tartrate 25 mg Tab 25 mg = 1 tab(s), Oral, BID, Refills(s) 0 Start Date: 09/01/22 Status: Ordered NIFEdipine 30 mg oral tablet (4 sources) Dihydropyridine Calcium Channel Janny Start: 08-25-20 take 1 tablet by mouth at bedtime NIFEdipine 30 mg ER Tab 30 mg = 1 tab(s), Oral, Bedtime, Refills(s) 0 Start Date: 08/25/22 Status: Ordered Start: 11-08-2021 NIFEdipine (MN OCARDIA XL) 30 MG extended release tablet nitroglycerin 0.4 mg sublingual tablet (1 source) Nitrate Vasodilator Start: 08-25-2022 nitroglycerin 0.4 mg sublingual Tab 0.4 mg = 1 tab(s), SubLingual, q5min, PRN for chest pain, Refills(s) 0 Start Date: 08/25/22 Status: Ordered oxaprozin 600 mg oral tablet (3 sources) Nonsteroidal Anti-inflammatory Drug Start: 11-16-2021 oxaprozin (DAYPRO) 600 MG tablet pantoprazole 40 mg delayed release oral tablet (3 sources) Proton Pump Inhibitor Start: 10-25-2023 take 1 tablet by mouth once daily before breakfast pantoprazole (PROTONIX) 40 MG tablet Take 1 tablet by mouth every morning (before breakfast) 30 tablet 3 10/25/2023 Active pioglitazone 30 mg oral tablet (3 sources) Peroxisome Proliferator Receptor alpha Agonist, Peroxisome Proliferator Receptor gamma Agonist, Thiazolidinedione Start: 11-02-2021 pioglitazone (ACTOS) 30 MG tablet microencapsulated potassium chloride 10 meq extended release oral tablet (2 sources) Start: 10-24-2023 potassium chloride (KLOR-CON M) 10 MEQ extended release tablet Take 3 tablets by mouth 2 times daily 180 tablet 0 10/24/2023 Active pramipexole dihydrochloride 0.5 mg oral tablet (7 sources) Nonergot Dopamine Agonist Start: 10-03-2021 pramipexole (MIRAPEX) 0.5 MG tablet SITagliptin 100 mg oral tablet (3 sources) Dipeptidyl Peptidase 4 Inhibitor Start: 09-06-2021 JANUVIA 100 MG tablet 1000 ml sodium chloride 9 mg/ml injection (1 source) Start: 05-15-2022 0.9 % sodium chloride infusion spironolactone 25 mg oral tablet (3 sources) Aldosterone Antagonist Start: 10-25-2023 take 1 tablet by mouth once daily spironolactone (ALDACTONE) 25 MG tablet Take 1 tablet by mouth daily 30 tablet 3 10/25/2023 Active Symbicort 160/4.5 inhalation aerosol with adapter (1 source) Start: 08-25-2022 take 2 puff(s) by inhalation twice daily Symbicort 160/4.5 inhalation aerosol with adapter 2 puff(s), Inhalation, BID, Refill(s) 0 Start Date: 08/25/22 Status: Ordered terbinafine 250 mg oral tablet (2 sources) Allylamine Antifungal Start: 08-25-2022 take 1 tablet by mouth once daily terbinafine 250 mg oral tablet 250 mg = 1 tab(s), Oral, Daily, Refills(s) 0 Start Date: 08/25/22 Status: Ordered take 1 tablet by mouth once tee y terbinafine (LAMISIL) 250 MG tablet Take 250 mg by mouth daily 0 Active tiZANidine 4 mg oral tablet (4 sources) Central alpha-2 Adrenergic Agonist Start: 08-25-2022 take 2 tablets by mouth at bedtime tiZANidine 4 mg Tab 8 mg = 2 tab(s), Oral, Bedtime, Refills(s) 0 Start Date: 08/25/22 Status: Ordered Start: 11-24-2021 tiZANidine (ZA NAFLEX) 4 MG tablet Vitamin D (1 source) Start: 08-25-2022 take 5000 [IU] by mo [facility] once daily Vitamin D 5,000 unit(s), Oral, Daily, Refills(s) 0 Start Date: 08/25/22 Status: Ordered Completed/Discontinued Medications Medication Drug Class(es) Dates Sig (Normalized) Sig (Original) regadenoson (LEXISCAN) injection 0.4 mg (1 source) Start: 01-24-2024 End: 01-24-2024 regadenoson (LEXISCAN) injection 0.4 mg technetium sestamibi (CARDIOLITE) injection 30 millicurie (1 source) Start: 01-25-2024 End: 01-25-2024 technetium sestamibi (CARDIOLITE) injection 30 millicurie Problems Active Problems Problem Classification Problem Date Documented Date Episodic/Chronic Abdominal hernia (1 source) Hernia of anterior abdominal wall 08-25-2022 Episodic Anxiety disorders (1 source) Panic disorder [episodic paroxysmal anxiety]; Translations: [PANIC DISORDER [EPISODIC PAROXYSMAL ANXIETY]] Onset: 09-13-2017 Chronic Cardiac dysrhythmias (18 sources) Supraventricular tachycardia; Translations: [Typical atrial flutter] Onset: 08-14-2023 08-25-2022 Chronic Chronic obstructive pulmonary disease and bronchiectasis (2 sources) Chronic obstructive lung disease; Translations: [Chronic obstructive pulmonary disease, unspecified] Onset: 02-23-2023 08-25-2022 Chronic Conditions associated with dizziness or vertigo (2 sources) Dizziness and giddiness; Translations: [DIZZINESS AND GIDDINESS] Onset: 02-03-2023 Episodic Congestive heart failure; nonhypertensive (9 sources) Congestive heart failure; Translations: [Heart failure, unspecified] Onset: 10-17-2023 10-18-2023 Chronic Coronary atherosclerosis and other heart disease (8 sources) Atherosclerotic heart disease of [place] coronary artery without angina pectoris; Translations: [Coronary arteriosclerosis] Onset: 09-13-2017 08-25-2022 Chronic Deficiency and other anemia (1 source) Anemia, unspecified; Translations: [ANEMIA UNSPECIFIED] Onset: 02-03-2023 Episodic Diabetes mellitus with complications (4 sources) Type 2 diabetes mellitus with hyperglycemia; Translations: [Type II diabetes mellitus uncontrolled] Onset: 05-02-2022 10-18-2023 Chronic Diabetes mellitus without complication (8 sources) Type 2 diabetes mellitus without complications; Translations: [Diabetes mellitus] Onset: 09-13-2017 08-25-2022 Chronic Diabetes mellitus without complication (1 source) Other abnormal glucose; Translations: [OTHER ABNORMAL GLUCOSE] Onset: 02-03-2023 Episodic Disorders of lipid metabolism (4 sources) Hyperlipidemia, unspecified; Translations: [Mixed hyperlipidemia] Onset: 05-02-2022 08-14-2023 Chronic Essential hypertension (7 sources) Essential (primary) hypertension; Translations: [Essential hypertension] Onset: 09-13-2017 10-18-2023 Chronic Neoplasms of unspecified nature or uncertain behavior (2 sources) Neoplasm of uncertain behavior of skin; Translations: [Neoplasm of uncertain behavior of skin] Onset: 09-01-2022 Episodic Nonspecific chest pain (1 source) Chest pain, unspecified; Translations: [CHEST PAIN UNSPECIFIED] Onset: 02-03-2023 Episodic Other circulatory disease (1 source) Personal history of other diseases of the circulatory system; Translations: [Personal history of other diseases of the circulatory system] Onset: 12-06-2023 Episodic Other circulatory disease (3 sources) History of atrial flutter; Translations: [Personal history of other diseases of the circulatory system] Onset: 12-06-2023 12-06-2023 Episodic Other endocrine disorders (2 sources) Hypoglycemia, unspecified; Translations: [Hypoglycemia, unspecified] Onset: 11-01-2023 Chronic Other nutritional; endocrine; and metabolic disorders (1 source) Body mass index 30+ - obesity 09-01-2022 Chronic Other nutritional; endocrine; and metabolic disorders (3 sources) Body mass index 40+ - severely obese; Translations: [Morbid (severe) obesity due to excess calories] Onset: 10-18-2023 10-18-2023 Chronic Other upper respiratory disease (1 source) Other specified disorders of nose and nasal sinuses; Translations: [OTH SPEC D/O NOSE NASAL SINUSES] Onset: 02-03-2023 Episodic Other upper respiratory infections (5 sources) Chronic sinusitis, unspecified; Translations: [CHRONIC SINUSITIS UNSPECIFIED] Onset: 02-23-2023 Chronic Paralysis (1 source) Right hemiplegia 08-25-2022 Chronic Peripheral and visceral atherosclerosis (4 sources) Vascular insufficiency of intestine; Translations: [Peripheral vascular disease, unspecified] Onset: 08-14-2023 08-25-2022 Chronic Residual codes; unclassified (3 sources) Obstructive sleep apnea syndrome; Translations: [Obstructive sleep apnea (adult) (pediatric)] Onset: 10-30-2023 10-30-2023 Chronic Residual codes; unclassified (1 source) Insomnia 08-25-2022 Episodic Spondylosis; intervertebral disc disorders; other back problems (1 source) Cervical spondylosis 08-25-2022 Chronic Substance-related disorders (6 sources) Smoker; Translations: [Nicotine dependence, cigarettes, uncomplicated] Onset: 05-02-2022 08-25-2022 Chronic Unclassified (2 sources) Unknown / UNK(Unknown) Onset: 09-13-2017 Unclassified (2 sources) Unspecified intestinal obstruction, unspecified as to partial versus complete obstruction; Translations: [UNSP INTESTNL OBST, UNSP TO PARTIAL VERSUS COMPLETE OBST] Onset: 09-13-2017 Unclassified (1 source) History of small bowel obstruction 08-25-2022 Unclassified (4 sources) CONTACT W/AND (SUSP) EXPOS COVID-19; Translations: [CONTACT W/AND (SUSP) EXPOS COVID-19] Onset: 05-02-2022 Unclassified (1 source) COUGH, UNSPECIFIED; Translations: [COUGH, UNSPECIFIED] Onset: 12-03-2022 Past or Other Problems Problem Classification Problem Date Documented Da te Episodic/Chronic Acute and unspecified renal failure (3 sources) Acute injury of kidney; Translations: [Acute kidney failure, unspecified] Onset: 10-18-2023 10-18-2023 Episodic Coronary atherosclerosis and other heart disease (2 sources) Presence of coronary angioplasty implant and graft; Translations: [PRESENCE COR ANGPLSTY IMPLANT AND GRAFT] Onset: 05-02-2022 Episodic Deficiency and other anemia (3 sources) Normocytic normochromic anemia; Translations: [Anemia, unspecified] Onset: 10-18-2023 10-18-2023 Episodic Fluid and electrolyte disorders (4 sources) Hypo-osmolality and hyponatremia; Translations: [Hyponatremia] Onset: 05-02-2022 10-18-2023 Episodic Intestinal obstruction without hernia (4 sources) Ileus, unspecified; Translations: [Partial intestinal obstruction, unspecified as to cause] Onset: 09-13-2017 Episodic Other aftercare (1 source) 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; Translations: [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 DX] Onset: 05-02-2022 Episodic Other aftercare (1 source) Other fpc (current) drug therapy; Translations: [OTH CORRECTION CURRENT DRUG THERAPY] Onset: 05-02-2022 Episodic Other connective tissue disease (1 source) Arthrodesis status; Translations: [ARTHRODESIS STATUS] Onset: 05-02-2022 Episodic Other upper respiratory disease (1 source) Nasal congestion; Translations: [NASAL CONGESTION] Onset: 12-03-2022 Episodic Residual codes; unclassified (1 source) Edema, unspecified; Translations: [Edema, unspecified] Onset: 08-21-2023 Episodic Residual codes; unclassified (3 sources) Edema; Translations: [Edema, unspecified] Onset: 08-21-2023 08-21-2023 Episodic Spondylosis; intervertebral disc disorders; other back problems (8 sources) Low back pain; Translations: [Lumbar radiculopathy] Onset: 08-28-2022 08-25-2022 Episodic Unclassified (1 source) CONTACT W/AND (SUSP) EXPOS COVID-19; Translations: [CONTACT W/AND (SUSP) EXPOS COVID-19] Onset: 12-01-2022 Results Test Name Value Interpretation Reference Range Facility Nuclear stress test with duglas cardial perfusionOrdered By: Lazarus Keys on 01-25-2024 Baseline Diastolic BP 82 mmHg [employer] Phone: Baseline HR 89 bpm [employer] Phone: Baseline Systolic BP 148 mmHg [facility] Phone: Nuc Stress EF 71 % [facility] [facility] Phone: Recovery Stage 1 BP 110/62 mmHg [employer] Phone: Recovery Stage 1 Duration 0 min:sec [employer] [place] Phone: Recovery Stage 1 HR 98 bpm [employer] Phone: Recovery Stage 2 Duration 1 min:sec [employer] [place] Phone: Recovery Stage 2 HR 94 bpm [employer] Phone: Recovery Stage 3 BP 112/64 mmHg [employer] Phone: Recovery Stage 3 Duration 3 min:sec RAMY LINDER [employer] Work Phone: Recovery Stage 3 HR 93 bpm RAMY CARO [employer] Work Phone: Recovery Stage 4 BP 116/68 mmHg RAMY S GORDO [employer] Work Phone: Recovery Stage 4 Duration 5 min:sec RAMY LINDER [employer] Work Phone: Recovery Stage 4 HR 92 bpm BON S GORDO [employer] Work Phone: Stress Diastolic BP 62 mmHg RAMY S GORDO [employer] Work Phone: Stress Peak HR 106 bpm RAMY LOZOYA S [employer] Work Phone: Stress Percent HR Achieved 65 % RAMY LINDER [employer] Work Phone: Stress Rate Pressure Product 66201 bpm*mmHg RAMY LINDER [employer] Work Phone: Stress Systolic BP 110 mmHg BON SE COURS [employer] Work Phone: Stress Target HR 162 bpm BON SECO JOHANNA [employer] Work Phone: TID 1.07 RAMY LINDER [employer] Work Phone: RAMY LINDER [employer] Work Phone: Nuclear stress test with duglas cardial perfusionon 01-25-2024 Image quality is excellent. ECG: Resting ECG demonstrates normal sinus rhythm. Stress Test: A pharmacological stress test was performed using lexiscan. The patient reported dyspnea during the stress test. The patient reached the end of the protocol. Blood pressure demonstrated a normal response and heart rate demonstrated a normal response to stress. The patient's heart rate recovery was normal. Stress ECG: Arrhythmias during stress: occasional PACs. No significant ST changes noted. Arrhythmias during recovery: occasional PACs. Stress Function: Left ventricular function post-stress is normal. Post-stress ejection fraction is 71%. The stress end diastolic cavity size is normal. Perfusion Conclusion: There is no evidence of transient ischemic dilation (TID). TID ratio is 1.07. Perfusion Defect: There is a mild severity left ventricular stress perfusion defect that is small in size present in the anterolateral segment(s) that is partially reversible. This defect was visualized during the stress and rest phases of imaging. The defect appears to be probable artifact. Overall, these cardiac imaging results are most consistent with a low risk for significant coronary artery disease. Although the patients results were not completely normal, unless clinical suspicion for significant ongoing coronary artery ischemia is high, I would not suggest pursuing additional testing by coronary angiography. The sensitivity for detecting ischemia on this test may have been reduced due the patient being on a beta janny Resting ECG The ECG shows sinus rhythm. The ECG shows premature atrial contractions. Stress Findings A pharmacological stress test was performed using lexiscan. The patient reported dyspnea during the stress test. The patient reached the end of the protocol. Blood pressure demonstrated a normal response and heart rate demonstrated a normal response to stress. The patient's heart rate recovery was normal. Stress ECG Arrhythmias during stress: occasional PACs. No significant ST changes noted. Arrhythmias during recovery: occasional PACs. Nuclear Study Quality Nuclear Cardiac SPECT gated stress then rest with tomographic imaging/tomography utilized for the myocardial perfusion procedure. Lexiscan was used as the stressing method and agent. (Lexiscan given via a 10 - 20 sec injection). Two day myocardial perfusion study (01/24/2024 and 01/25/2024). This Single Photon Emission Computer Tomography (SPECT) study utilized tomographic imaging/tomography for the tomographic myocardial perfusion imaging performed during this study. Overall image quality is excellent. Perfusion Comments Prone images were obtained. Prone imaging was helpful in correcting soft tissue attenuation. Perfusion Defect There is a mild severity left ventricular stress perfusion defect that is small in size present in the anterolateral segment(s) that is partially reversible. This defect was visualized during the stress and rest phases of imaging. The defect appears to be probable artifact. Perfusion Defect Conclusion There is no evidence of transient ischemic dilation (TID). TID ratio is 1.07. Stress Function Comments Left ventricular function post-stress is normal. Post-stress ejection fraction is 71%. The stress end diastolic cavity size is normal. [facility] CV RPACS STRESS Nuclear stress test with duglas cardial perfusionon 01-24-2024 Radiology Study observation (narrative) [facility] CBC with Diffon 12-06-2023 Abs. Basophil 0.08 k/uL Normal 0.00-0.20 [facility] Comment on above: Performed By: #### P T, DIME IOCAL, RETCT #### [place] [address] Consumer Loan Manager: Haja Franz MD Abs.Imm.Granulocyte 0.10 k/uL Normal 0.00-0.30 [facility] Comment on above: Performed By: #### P T, DIME IOCAL, RETCT #### [place] [address] Consumer Loan Manager: Haja Franz MD Abs.Neutrophil (Seg) 9.77 k/uL High 1.50-8.10 [facility] Comment on above: Performed By: #### P T, DIME IOCAL, RETCT #### [place] [address] Consumer Loan Manager: Haja Franz MD Basophils/100 WBC (Bld) 1 % Normal 0-2 [facility] Comment on above: Performed By: #### P T DIME IOCAL, RETCT #### [place] [address] Consumer Loan Manager: Haja Franz MD Eosinophils (Bld) [#/Vol] 0.14 10*3/uL Normal 0.00-0.44 [facility] Comment on above: Performed By: #### P T, DIME IOCAL, RETCT #### [place] [address] Consumer Loan Manager: Haja Franz MD Eosinophils/100 WBC (Bld) 1 % Normal 1-4 [facility] Comment on above: Performed By: #### P T, DIME IOCAL, RETCT #### [place] [address] Consumer Loan Manager: Haja Franz MD Erythrocyte distribution width (RBC) [Ratio] 16.6 % High 11.8-14.4 [facility] Comment on above: Performed By: #### P T, DIME, IOCAL, RETCT #### [address] [address] Consumer Loan Manager: Haja Franz MD Hematocrit (Bld) [Volume fraction] 42.4 % Normal 36.3-47.1 [facility] Comment on above: Performed By: #### P T, DIME, IOCAL, RETCT #### [address] [address] Consumer Loan Manager: Haja Franz MD Hemoglobin (Bld) [Mass/Vol] 13.3 g/dL Normal 11.9-15.1 [facility] Comment on above: Performed By: #### P T, DIME, IOCAL, RETCT #### [address] [address] Consumer Loan Manager: Haja Franz MD Immature granulocytes/100 WBC (Bld) 1 % High 0 [facility] Comment on above: Performed By: #### P T, DIME, IOCAL, RETCT #### [address] [address] Consumer Loan Manager: Haja Franz MD Lymphocytes (Bld) [#/Vol] 1.80 10*3/uL Normal 1.10-3.70 [facility] Comment on above: Performed By: #### P T, DIME, IOCAL, RETCT #### [address] [address] Consumer Loan Manager: Haja Franz MD Lymphocytes/100 WBC (Bld) 14 % Low 24-43 [facility] Comment on above: Performed By: #### P T, DIME, IOCAL, RETCT #### [address] [address] Consumer Loan Manager: Haja Franz MD MCH (RBC) [Entitic mass] 28.0 pg Normal 25.2-33.5 [facility] Comment on above: Performed By: #### P T, DIME, IOCAL, RETCT #### [address] [address] Consumer Loan Manager: Haja Franz MD MCHC (RBC) [Mass/Vol] 31.4 g/dL Normal 28.4-34.8 [facility] Comment on above: Performed By: #### P T, DIME, IOCAL, RETCT #### [address] [address] Consumer Loan Manager: Haja Franz MD MCV (RBC) [Entitic vol] 89.3 fL Normal 82.6-102.9 [facility] Comment on above: Performed By: #### P T, DIME, IOCAL, RETCT #### [place] [address] Consumer Loan Manager: Haja Franz MD Monocytes (Bld) [#/Vol] 0.82 10*3/uL Normal 0.10-1.20 [facility] Comment on above: Performed By: #### P T, DIME, IOCAL, RETCT #### [address] [address] Consumer Loan Manager: Haja Franz MD Monocytes/100 WBC (Bld) 7 % Normal 3-12 [facility] Comment on above: Performed By: #### P T, DIME, IOCAL, RETCT #### [address] [address] Consumer Loan Manager: Haja Franz MD Neutrophil (Seg) 76 % High 36-65 [facility] Comment on above: Performed By: #### P T, DIME, IOCAL, RETCT #### [address] [address] Consumer Loan Manager: Haja Franz MD NRBC Automated 0.0 per 100 WBC Normal 0.0 [facility] Comment on above: Performed By: #### P TRICKIE IOCAL, RETCT #### [address] [address] Consumer Loan Manager: Haja Franz MD Platelet mean volume (Bld) [Entitic vol] 11.5 fL Normal 8.1-13.5 [facility] Comment on above: Performed By: #### P T, DIME, IOCAL, RETCT #### [address] [address] Consumer Loan Manager: Haja Franz MD Platelets (Bld) [#/Vol] 210 10*3/uL Normal 138-453 [facility] Comment on above: Performed By: #### P T, DIME IOCAL, RETCT #### [place] [address] Consumer Loan Manager: Haja Franz MD RBC (Bld) [#/Vol] 4.75 10*6/uL Normal 3.95-5.11 [facility] Comment on above: Performed By: #### P T, DIME, IOCAL, RETCT #### [place] [address] Consumer Loan Manager: Haja Franz MD RBC morphology finding Nom (Bld) ANISOCYTOSIS PRESENT Normal [facility] Comment on above: Performed By: #### P T, DIME, IOCAL, RETCT #### [address] [address] Consumer Loan Manager: Haja Franz MD WBC (Bld) [#/Vol] 12.7 10*3/uL High 3.5-11.3 [facility] Comment on above: Performed By: #### P T, DIME, IOCAL, RETCT #### [address] [address] Consumer Loan Manager: Haja Franz MD Basic Metabolic Profon 12-03 Anion gap [Moles/Vol] 10 mmol/L Normal 9-17 [facility] Comment on above: Performed By: #### P T, DIME, IOCAL, RETCT #### [address] [address] Consumer Loan Manager: Haja Franz MD Calcium [Mass/Vol] 8.9 mg/dL Normal 8.6-10.4 [facility] Comment on above: Performed By: #### P T, DIME IOCAL, RETCT #### [facility] [address] [place] [address] Consumer Loan Manager: Haja Franz MD Chloride [Moles/Vol] 103 mmol/L Normal 98-107 [facility] Comment on above: Performed By: #### P T, DIME, IOCAL, RETCT #### [facility] [address] [place] [phone] Consumer Loan Manager: Haja Franz MD CO2 [Moles/Vol] 24 mmol/L Normal 20-31 [facility] Comment on above: Performed By: #### P T, DIME, IOCAL, RETCT #### [facility] [address] [place] [address] Consumer Loan Manager: Haja Franz MD Creatinine [Mass/Vol] 1.4 mg/dL High 0.5-0.9 [facility] Comment on above: Performed By: #### P T, DIME, IOCAL, RETCT #### [facility] [address] [place] [address] Consumer Loan Manager: Haja Franz MD GFR/1.73 sq M.predicted among non-blacks MDRD (S/P/Bld) [Vol rate/Area] 44 mL/min/{1.73_m2} Low >60 [facility] Comment on above: Result Comment: These results are not intended for use in patients <18 years of age. eGFR results are calculated without a race factor using the 2020 CKD-EPI equation. Careful clinical correlation is recommended, particularly when comparing to results calculated using previous equations. The CKD-EPI equation is less accurate in patients with extremes of muscle mass, extra-renal metabolism of creatine, excessive creatine ingestion, or following therapy that affects renal tubular secretion. Performed By: #### RICK Hathaway IOCAL, RETCT #### [facility] [address] [place] [address] Consumer Loan Manager: Haja Franz MD Glucose [Mass/Vol] 156 mg/dL High 70-99 [facility] Comment on above: Performed By: #### RICK Hathaway IOCAL, RETCT #### [address] [address] Consumer Loan Manager: Haja Franz MD Potassium [Moles/Vol] 4.2 mmol/L Normal 3.7-5.3 [facility] Comment on above: Performed By: #### RICK Hathaway IOCAL, RETCT #### [address] [address] Consumer Loan Manager: Haja Franz MD Sodium [Moles/Vol] 137 mmol/L Normal 135-144 [facility] Comment on above: Performed By: #### RICK Hathaway IOCAL, RETCT #### [facility] [address] [place] [phone] Consumer Loan Manager: Haja Franz MD Urea nitrogen [Mass/Vol] 23 mg/dL High 6-20 [facility] Comment on above: Performed By: #### RICK Hathaway IOCAL, RETCT #### [facility] [address] [place] [address] Consumer Loan Manager: Haja Franz MD CBC with Diffon 12-03-2023 Abs. Basophil 0.08 k/uL Normal 0.00-0.20 [facility] Comment on above: Performed By: #### P T, DIME IOCAL, RETCT #### [place] [address] Consumer Loan Manager: Haja Franz MD Abs.Imm.Granulocyte 0.08 k/uL Normal 0.00-0.30 [facility] Comment on above: Performed By: #### P T, DIME IOCAL, RETCT #### [place] [address] Consumer Loan Manager: Haja Franz MD Abs.Neutrophil (Seg) 8.82 k/uL High 1.50-8.10 [facility] Comment on above: Performed By: #### P T, DIME, IOCAL, RETCT #### [place] [address] Consumer Loan Manager: Haja Franz MD Basophils/100 WBC (Bld) 1 % Normal 0-2 [facility] Comment on above: Performed By: #### P T DIME IOCAL, RETCT #### [place] [address] Consumer Loan Manager: Haja Franz MD Eosinophils (Bld) [#/Vol] 0.12 10*3/uL Normal 0.00-0.44 [facility] Comment on above: Performed By: #### P T, DIME IOCAL, RETCT #### [place] [address] Consumer Loan Manager: Haja Franz MD Eosinophils/100 WBC (Bld) 1 % Normal 1-4 [facility] Comment on above: Performed By: #### P T, DIME, IOCAL, RETCT #### [place] [address] Consumer Loan Manager: Haja Franz MD Erythrocyte distribution width (RBC) [Ratio] 16.8 % High 11.8-14.4 [facility] Comment on above: Performed By: #### P T, DIME, IOCAL, RETCT #### [address] [address] Consumer Loan Manager: Haja Franz MD Hematocrit (Bld) [Volume fraction] 41.4 % Normal 36.3-47.1 [facility] Comment on above: Performed By: #### P T, DIME, IOCAL, RETCT #### [address] [address] Consumer Loan Manager: Haja Franz MD Hemoglobin (Bld) [Mass/Vol] 13.3 g/dL Normal 11.9-15.1 [facility] Comment on above: Performed By: #### P T, DIME, IOCAL, RETCT #### [address] [address] Consumer Loan Manager: Haja Franz MD Immature granulocytes/100 WBC (Bld) 1 % High 0 [facility] Comment on above: Performed By: #### P T, DIME, IOCAL, RETCT #### [address] [address] Consumer Loan Manager: Haja Franz MD Lymphocytes (Bld) [#/Vol] 1.61 10*3/uL Normal 1.10-3.70 [facility] Comment on above: Performed By: #### P T, DIME, IOCAL, RETCT #### [address] [address] Consumer Loan Manager: Haja Franz MD Lymphocytes/100 WBC (Bld) 14 % Low 24-43 [facility] Comment on above: Performed By: #### P T, DIME, IOCAL, RETCT #### [address] [address] Consumer Loan Manager: Haja Franz MD MCH (RBC) [Entitic mass] 28.2 pg Normal 25.2-33.5 [facility] Comment on above: Performed By: #### P T, DIME, IOCAL, RETCT #### [address] [address] Consumer Loan Manager: Haja Franz MD MCHC (RBC) [Mass/Vol] 32.1 g/dL Normal 28.4-34.8 [facility] Comment on above: Performed By: #### P T, DIME, IOCAL, RETCT #### [place] [address] Consumer Loan Manager: Haja Franz MD MCV (RBC) [Entitic vol] 87.9 fL Normal 82.6-102.9 [facility] Comment on above: Performed By: #### P T, DIME, IOCAL, RETCT #### [place] [address] Consumer Loan Manager: Haja Franz MD Monocytes (Bld) [#/Vol] 0.68 10*3/uL Normal 0.10-1.20 [facility] Comment on above: Performed By: #### P T, DIME, IOCAL, RETCT #### [address] [address] Consumer Loan Manager: Haja Franz MD Monocytes/100 WBC (Bld) 6 % Normal 3-12 [facility] Comment on above: Performed By: #### P T, DIME, IOCAL, RETCT #### [place] [address] Consumer Loan Manager: Haja Franz MD Neutrophil (Seg) 77 % High 36-65 [facility] Comment on above: Performed By: #### P T, DIME, IOCAL, RETCT #### [place] [address] Consumer Loan Manager: Haja Franz MD NRBC Automated 0.0 per 100 WBC Normal 0.0 [facility] Comment on above: Performed By: #### P T, DIME IOCAL, RETCT #### [address] [address] Consumer Loan Manager: Haja Franz MD Platelet mean volume (Bld) [Entitic vol] 11.0 fL Normal 8.1-13.5 [facility] Comment on above: Performed By: #### P T, DIME, IOCAL, RETCT #### [place] [address] Consumer Loan Manager: Haja Franz MD Platelets (Bld) [#/Vol] 211 10*3/uL Normal 138-453 [facility] Comment on above: Performed By: #### P T, DIME, IOCAL, RETCT #### [place] [address] Consumer Loan Manager: Haja Franz MD RBC (Bld) [#/Vol] 4.71 10*6/uL Normal 3.95-5.11 [facility] Comment on above: Performed By: #### P T, DIME, IOCAL, RETCT #### [address] [address] Consumer Loan Manager: Haja Franz MD RBC morphology finding Nom (Bld) ANISOCYTOSIS PRESENT Normal [facility] Comment on above: Performed By: #### P T, DIME, IOCAL, RETCT #### [address] [address] Consumer Loan Manager: Haja Franz MD WBC (Bld) [#/Vol] 11.4 10*3/uL High 3.5-11.3 [facility] Comment on above: Performed By: #### P T, DIME, IOCAL, RETCT #### [address] [address] Consumer Loan Manager: Haja Franz MD Type + Screenon 12-03-2023 Type + Screen Sample Expiration 12/09/2023,2359 Arm Band Number BE [id number] ABO/Rh(D) O POSITIVE Antibody Screen NEGATIVE Normal [facility] Comment on above: Performed By: #### P Nessa, BIJAL CABRERA, RETCT #### [address] [address] Consumer Loan Manager: Haja Franz MD Thyroxine T4on 11-02-2023 T4 [Mass/Vol] 9.8 ug/dL Normal 4.5-11.7 [facility] Comment on above: Performed By: #### B EGG TRAYER, CP, CDP, MG, TSH #### [facility] [address] [place] [address] [place] [address] Consumer Loan Manager: Maria Luisa Bennett MD #### FT3, T4 #### [address] [phone] Consumer Loan Manager: Haja Franz MD Brain Natri. Peptideon 11-01 Natriuretic peptide B (Bld) [Mass/Vol] 1460 pg/mL High <300 [facility] Comment on above: Result Comment: An age-independent cutoff point of 300 pg/ml has a 98% negative predictive value excluding acute heart failure. Performed By: #### B EGG TRAYER, CP, CDP, MG, TSH #### [facility] [address] [place] [address] Consumer Loan Manager: Maria Luisa Bennett MD #### FT3, T4 #### [address] [phone] Consumer Loan Manager: Haja Franz MD CBC with Diffon 11-01-2023 Abs. Basophil 0.07 k/uL Normal 0.00-0.20 [facility] Comment on above: Performed By: #### B EGG TRAYER, CP, CDP, MG, TSH #### [address] [place] [phone] Consumer Loan Manager: Maria Luisa Bennett MD #### FT3, T4 #### [address] [address] Consumer Loan Manager: Haja Franz MD Abs.Imm.Granulocyte 0.11 k/uL Normal 0.00-0.30 [facility] Comment on above: Performed By: #### B EGG TRAYER, CP, CDP, MG, TSH #### [address] [place] [phone] Consumer Loan Manager: Maria Luisa Bennett MD #### FT3, T4 #### [place] [address] Consumer Loan Manager: Haja Franz MD Abs.Neutrophil (Seg) 8.17 k/uL High 1.50-8.10 [facility] Comment on above: Performed By: #### B EGG TRAYER, CP, CDP, MG, TSH #### [address] [place] [phone] Consumer Loan Manager: Maria Luisa Bennett MD #### FT3, T4 #### [place] [address] Consumer Loan Manager: Haja Franz MD Basophils/100 WBC (Bld) 1 % Normal 0-2 [facility] Comment on above: Performed By: #### B EGG TRAYER, CP, CDP, MG, TSH #### [address] [place] [phone] Consumer Loan Manager: Maria Luisa Bennett MD #### FT3, T4 #### [place] [address] Consumer Loan Manager: Haja Franz MD Eosinophils (Bld) [#/Vol] 0.19 10*3/uL Normal 0.00-0.44 [facility] Comment on above: Performed By: #### B EGG TRAYER, CP, CDP, MG, TSH #### [facility] [address] [place] [address] [address], [place] [phone] Consumer Loan Manager: Maria Luisa Bennett MD #### FT3, T4 #### [address] [phone] Consumer Loan Manager: Haja Franz MD Eosinophils/100 WBC (Bld) 2 % Normal 1-4 [facility] Comment on above: Performed By: #### B EGG TRAYER, CP, CDP, MG, TSH #### [address] [place] [address] Consumer Loan Manager: Maria Luisa Bennett MD #### FT3, T4 #### [address] [phone] Consumer Loan Manager: Haja Franz MD Erythrocyte distribution width (RBC) [Ratio] 16.4 % High 11.8-14.4 [facility] Comment on above: Performed By: #### B EGG TRAYER, CP, CDP, MG, TSH #### [address] [place] [phone] Consumer Loan Manager: Maria Luisa Bennett MD #### FT3, T4 #### [address] [phone] Consumer Loan Manager: Haja Franz MD Hematocrit (Bld) [Volume fraction] 39.8 % Normal 36.3-47.1 [facility] Comment on above: Performed By: #### B EGG TRAYER, CP, CDP, MG, TSH #### [address] [place] [address] Consumer Loan Manager: Maria Luisa Bennett MD #### FT3, T4 #### [address] [phone] Consumer Loan Manager: Haja Franz MD Hemoglobin (Bld) [Mass/Vol] 12.6 g/dL Normal 11.9-15.1 [facility] Comment on above: Performed By: #### B EGG TRAYER, CP, CDP, MG, TSH #### [address] [place] [phone] Consumer Loan Manager: Maria Luisa Bennett MD #### FT3, T4 #### [address] [phone] Consumer Loan Manager: Haja Franz MD Immature granulocytes/100 WBC (Bld) 1 % High 0 [facility] Comment on above: Performed By: #### B EGG TRAYER, CP, CDP, MG, TSH #### [address] [place] [phone] Consumer Loan Manager: Maria Luisa Bennett MD #### FT3, T4 #### [place] [address] Consumer Loan Manager: Haja Franz MD Lymphocytes (Bld) [#/Vol] 2.19 10*3/uL Normal 1.10-3.70 [facility] Comment on above: Performed By: #### B EGG TRAYER, CP, CDP, MG, TSH #### [address] [place] [phone] Consumer Loan Manager: Maria Luisa Bennett MD #### FT3, T4 #### [place] [address] Consumer Loan Manager: Haja Franz MD Lymphocytes/100 WBC (Bld) 18 % Low 24-43 [facility] Comment on above: Performed By: #### B EGG TRAYER, CP, CDP, MG, TSH #### [address] [place] [phone] Consumer Loan Manager: Maria Luisa Bennett MD #### FT3, T4 #### [address] [phone] Consumer Loan Manager: Haja Franz MD MCH (RBC) [Entitic mass] 27.8 pg Normal 25.2-33.5 [facility] Comment on above: Performed By: #### B EGG TRAYER, CP, CDP, MG, TSH #### [address] [place] [phone] Consumer Loan Manager: Maria Luisa Bennett MD #### FT3, T4 #### [place] [phone] Consumer Loan Manager: Haja Franz MD MCHC (RBC) [Mass/Vol] 31.7 g/dL Normal 28.4-34.8 [facility] Comment on above: Performed By: #### B EGG TRAYER, CP, CDP, MG, TSH #### [address] [place] [phone] Consumer Loan Manager: Maria Luisa Bennett MD #### FT3, T4 #### [place] [address] Consumer Loan Manager: Haja Franz MD MCV (RBC) [Entitic vol] 87.9 fL Normal 82.6-102.9 [facility] Comment on above: Performed By: #### B EGG TRAYER, CP, CDP, MG, TSH #### [address] [place] [phone] Consumer Loan Manager: Maria Luisa Bennett MD #### FT3, T4 #### [place] [address] Consumer Loan Manager: Haja Franz MD Monocytes (Bld) [#/Vol] 1.18 10*3/uL Normal 0.10-1.20 [facility] Comment on above: Performed By: #### B EGG TRAYER, CP, CDP, MG, TSH #### [address] [place] [phone] Consumer Loan Manager: Maria Luisa Bennett MD #### FT3, T4 #### [address], [place] [phone] Consumer Loan Manager: Haja Franz MD Monocytes/100 WBC (Bld) 10 % Normal 3-12 [facility] Comment on above: Performed By: #### B EGG TRAYER, CP, CDP, MG, TSH #### [facility] [address] [place] [address] [place], [place] [phone] Consumer Loan Manager: Maria Luisa Bennett MD #### FT3, T4 #### [address] [phone] Consumer Loan Manager: Haja Franz MD Neutrophil (Seg) 68 % High 36-65 [facility] Comment on above: Performed By: #### B EGG TRAYER, CP, CDP, MG, TSH #### [facility] [address] [place] [address] [place] [phone] Consumer Loan Manager: Maria Luisa Bennett MD #### FT3, T4 #### [address] [phone] Consumer Loan Manager: Haja Franz MD NRBC Automated 0.0 per 100 WBC Normal 0.0 [facility] Comment on above: Performed By: #### B EGG TRAYER, CP, CDP, MG, TSH #### [facility] [address] [place] [address] [place], [place] [phone] Consumer Loan Manager: Maria Luisa Bennett MD #### FT3, T4 #### [address] [address] Consumer Loan Manager: Haja Frnaz MD Platelet mean volume (Bld) [Entitic vol] 11.0 fL Normal 8.1-13.5 [facility] Comment on above: Performed By: #### B EGG TRAYER, CP, CDP, MG, TSH #### [address] [place] [address] Consumer Loan Manager: Maria Luisa Bennett MD #### FT3, T4 #### [address] [address] Consumer Loan Manager: Haja Franz MD Platelets (Bld) [#/Vol] 294 10*3/uL Normal 138-453 [facility] Comment on above: Performed By: #### B EGG TRAYER, CP, CDP, MG, TSH #### [address] [place], [place] [phone] Consumer Loan Manager: Maria Luisa Bennett MD #### FT3, T4 #### [place] [phone] [place] [address] Consumer Loan Manager: Haja Franz MD RBC (Bld) [#/Vol] 4.53 10*6/uL Normal 3.95-5.11 [facility] Comment on above: Performed By: #### B EGG TRAYER, CP, CDP, MG, TSH #### [address] [place] [phone] Consumer Loan Manager: Maria Luisa Bennett MD #### FT3, T4 #### [address] [address] Consumer Loan Manager: Haja Franz MD WBC (Bld) [#/Vol] 11.9 10*3/uL High 3.5-11.3 [facility] Comment on above: Performed By: #### B EGG TRAYER, CP, CDP, MG, TSH #### [address] [place], [place] [phone] Consumer Loan Manager: Maria Luisa Bennett MD #### FT3, T4 #### [address] [phone] Consumer Loan Manager: Haja Franz MD Comp Metabolic Profon 2022 Albumin [Mass/Vol] 3.9 g/dL Normal 3.5-5.2 [facility] Comment on above: Performed By: #### B EGG TRAYER, CP, CDP, MG, TSH #### [address] [place] [phone] Consumer Loan Manager: Maria Luisa Bennett MD #### FT3, T4 #### [place] [phone] [place], [place] [phone] Consumer Loan Manager: Haja Franz MD Albumin/Glob Ratio 1.0 Normal 1.0-2.5 [facility] Comment on above: Performed By: #### B EGG TRAYER, CP, CDP, MG, TSH #### [address] [place] [phone] Consumer Loan Manager: Maria Luisa Bennett MD #### FT3, T4 #### [address] [phone] Consumer Loan Manager: Haja Franz MD Alkaline Phos 166 U/L High 35-104 [facility] Comment on above: Performed By: #### B EGG TRAYER, CP, CDP, MG, TSH #### [address] [place] [phone] Consumer Loan Manager: Maria Luisa Bennett MD #### FT3, T4 #### [address] [phone] Consumer Loan Manager: Haja Franz MD ALT [Catalytic activity/Vol] 19 U/L Normal 5-33 [facility] Comment on above: Performed By: #### B EGG TRAYER, CP, CDP, MG, TSH #### [address] [place] [phone] Consumer Loan Manager: Maria Luisa Bennett MD #### FT3, T4 #### [address] [phone] Consumer Loan Manager: Haja Franz MD Anion gap [Moles/Vol] 13 mmol/L Normal 9-17 [facility] Comment on above: Performed By: #### B EGG TRAYER, CP, CDP, MG, TSH #### [address] [place] [phone] Consumer Loan Manager: Maria Luisa Bennett MD #### FT3, T4 #### [address] [phone] Consumer Loan Manager: Haja Franz MD AST [Catalytic activity/Vol] 18 U/L Normal <32 [facility] Comment on above: Performed By: #### B EGG TRAYER, CP, CDP, MG, TSH #### [address] [place] [phone] Consumer Loan Manager: Maria Luisa Bennett MD #### FT3, T4 #### [address] [phone] Consumer Loan Manager: Haja Franz MD Bilirubin [Mass/Vol] 0.5 mg/dL Normal 0.3-1.2 [facility] Comment on above: Performed By: #### B EGG TRAYER, CP, CDP, MG, TSH #### [address] [place] [phone] Consumer Loan Manager: Maria Luisa Bennett MD #### FT3, T4 #### [address] [phone] Consumer Loan Manager: Haja Franz MD BUN/CRE Ratio 13 Normal 9-20 [facility] Comment on above: Performed By: #### B EGG TRAYER, CP, CDP, MG, TSH #### [address] [place] [phone] Consumer Loan Manager: Maria Luisa Bennett MD #### FT3, T4 #### [address] [phone] Consumer Loan Manager: Haja Franz MD Calcium [Mass/Vol] 9.6 mg/dL Normal 8.6-10.4 [facility] Comment on above: Performed By: #### B EGG TRAYER, CP, CDP, MG, TSH #### [address] [place] [phone] Consumer Loan Manager: Maria Luisa Bennett MD #### FT3, T4 #### [facility] [address] [place] [address] Consumer Loan Manager: Haja Franz MD Chloride [Moles/Vol] 95 mmol/L Low 98-107 [facility] Comment on above: Performed By: #### B EGG TRAYER, CP, CDP, MG, TSH #### [facility] [address] [place] [address] [place] [address] Consumer Loan Manager: Maria Luisa Bennett MD #### FT3, T4 #### [place] [id number] [place] [address] Consumer Loan Manager: Haja Franz MD CO2 [Moles/Vol] 24 mmol/L Normal 20-31 [facility] Comment on above: Performed By: #### B EGG TRAYER, CP, CDP, MG, TSH #### [address] [place] [address] Consumer Loan Manager: Maria Luisa Bennett MD #### FT3, T4 #### [address] [place] [address] Consumer Loan Manager: Haja Franz MD Creatinine [Mass/Vol] 1.6 mg/dL High 0.5-0.9 [facility] Comment on above: Performed By: #### B EGG TRAYER, CP, CDP, MG, TSH #### [address] [place] [address] Consumer Loan Manager: Maria Luisa Bennett MD #### FT3, T4 #### [address] [place] [address] Consumer Loan Manager: Haja Franz MD GFR/1.73 sq M.predicted among non-blacks MDRD (S/P/Bld) [Vol rate/Area] 37 mL/min/{1.73_m2} Low >60 [facility] Comment on above: Result Comment: These results are not intended for use in patients <18 years of age. eGFR results are calculated without a race factor using the 2020 CKD-EPI equation. Careful clinical correlation is recommended, particularly when comparing to results calculated using previous equations. The CKD-EPI equation is less accurate in patients with extremes of muscle mass, extra-renal metabolism of creatine, excessive creatine ingestion, or following therapy that affects renal tubular secretion. Performed By: #### B EGG TRAYER, CP, CDP, MG, TSH #### [address] [place] [address] Consumer Loan Manager: Maria Luisa Bennett MD #### FT3, T4 #### [address] [phone] Consumer Loan Manager: Haja Franz MD Glucose [Mass/Vol] 205 mg/dL High 70-99 [facility] Comment on above: Performed By: #### B EGG TRAYER, CP, CDP, MG, TSH #### [address] [place] [address] Consumer Loan Manager: Maria Luisa Bennett MD #### FT3, T4 #### [address] [phone] Consumer Loan Manager: Haja Franz MD Potassium [Moles/Vol] 5.3 mmol/L Normal 3.7-5.3 [facility] Comment on above: Performed By: #### B EGG TRAYER, CP, CDP, MG, TSH #### [address] [place] [address] Consumer Loan Manager: Maria Luisa Bennett MD #### FT3, T4 #### [address] [phone] Consumer Loan Manager: Haja Franz MD Protein [Mass/Vol] 7.7 g/dL Normal 6.4-8.3 [facility] Comment on above: Performed By: #### B EGG TRAYER, CP, CDP, MG, TSH #### [address] [place] [address] Consumer Loan Manager: Maria Luisa Bennett MD #### FT3, T4 #### [address] [phone] Consumer Loan Manager: Haja Franz MD Sodium [Moles/Vol] 132 mmol/L Low 135-144 [facility] Comment on above: Performed By: #### B EGG TRAYER, CP, CDP, MG, TSH #### [address] [place] [address] Consumer Loan Manager: Maria Luisa Bennett MD #### FT3, T4 #### [address] [phone] Consumer Loan Manager: Haja Franz MD Urea nitrogen [Mass/Vol] 20 mg/dL Normal 6-20 [facility] Comment on above: Performed By: #### B EGG TRAYER, CP, CDP, MG, TSH #### [address] [place] [phone] Consumer Loan Manager: Maria Luisa Bennett MD #### FT3, T4 #### [place] [phone] Consumer Loan Manager: Haja Franz MD Magnesiumon 1 Magnesium [Mass/Vol] 2.4 mg/dL Normal 1.6-2.6 [facility] Comment on above: Performed By: #### B EGG TRAYER, CP, CDP, MG, TSH #### [address] [place] [phone] Consumer Loan Manager: Maria Luisa Bennett MD #### FT3, T4 #### [place] [phone] Consumer Loan Manager: Haja Franz MD T3, Freeon 5 Free T3 [Mass/Vol] 3.30 pg/mL Normal 2.02-4.43 [facility] Comment on above: Performed By: #### B EGG TRAYER, CP, CDP, MG, TSH #### [facility] [address] [place], [place] [phone] Consumer Loan Manager: Maria Luisa Bennett MD #### FT3, T4 #### [facility] [address] [place] [address] Consumer Loan Manager: Haja Franz MD Thyroid Stim. Horm.on 2022 Thyroid Stim. Horm. 0.63 uIU/mL Normal 0.30-5.00 [facility] Comment on above: Performed By: #### B EGG TRAYER, CP, CDP, MG, TSH #### [facility] [address] [place] [address] Consumer Loan Manager: Maria Luisa Bennett MD #### FT3, T4 #### [address] [place] [address] Consumer Loan Manager: Haja Franz MD Basic Metabolic Profon 10-24 Anion gap [Moles/Vol] 8 mmol/L Low 9-17 [facility] Comment on above: Performed By: #### Dann Kaufman, BMP #### [address] [address] Consumer Loan Manager: Haja Franz MD Calcium [Mass/Vol] 8.4 mg/dL Low 8.6-10.4 [facility] Comment on above: Performed By: #### Dann Kaufman, BMP #### [address] [phone] Consumer Loan Manager: Haja Franz MD Chloride [Moles/Vol] 99 mmol/L Normal 98-107 [facility] Comment on above: Performed By: #### Dann Kaufman, BMP #### [id number] [place] [address] Consumer Loan Manager: Haja Franz MD CO2 [Moles/Vol] 25 mmol/L Normal 20-31 [facility] Comment on above: Performed By: #### Dann Kaufman, BMP #### [employer] [address] [place] [phone] Consumer Loan Manager: Haja Franz MD Creatinine [Mass/Vol] 1.2 mg/dL High 0.5-0.9 [facility] Comment on above: Performed By: #### M G, BMP #### [facility] [address] [place] [phone] Consumer Loan Manager: Haja Franz MD GFR/1.73 sq M.predicted among non-blacks MDRD (S/P/Bld) [Vol rate/Area] 53 mL/min/{1.73_m2} Low >60 [facility] Comment on above: Result Comment: These results are not intended for use in patients <18 years of age. eGFR results are calculated without a race factor using the 2020 CKD-EPI equation. Careful clinical correlation is recommended, particularly when comparing to results calculated using previous equations. The CKD-EPI equation is less accurate in patients with extremes of muscle mass, extra-renal metabolism of creatine, excessive creatine ingestion, or following therapy that affects renal tubular secretion. Performed By: #### Dann G, BMP #### [employer] [address] [place] [phone] Consumer Loan Manager: Haja Franz MD Glucose [Mass/Vol] 240 mg/dL High 70-99 [facility] Comment on above: Performed By: #### Dann G, BMP #### [facility] [address] [place] [phone] Consumer Loan Manager: Haja Franz MD Potassium [Moles/Vol] 3.6 mmol/L Low 3.7-5.3 [facility] Comment on above: Performed By: #### M G, BMP #### [employer] [address] [place] [phone] Consumer Loan Manager: Haja Franz MD Sodium [Moles/Vol] 132 mmol/L Low 135-144 [facility] Comment on above: Performed By: #### M G, BMP #### [address] [phone] Consumer Loan Manager: Haja Franz MD Urea nitrogen [Mass/Vol] 18 mg/dL Normal 6-20 [facility] Comment on above: Performed By: #### Dann Kaufman, BMP #### [address] [phone] Consumer Loan Manager: Haja Franz MD Magnesiumon 10-24-2023 Magnesium [Mass/Vol] 2.1 mg/dL Normal 1.6-2.6 [facility] Comment on above: Performed By: #### Dann Kaufman BMP #### [address] [phone] Consumer Loan Manager: Haja Franz MD Basic Metabolic Profon 10-23 Anion gap [Moles/Vol] 11 mmol/L Normal 9-17 [facility] Comment on above: Performed By: #### P T DIME IOCAL, RETCT #### [address] [phone] Consumer Loan Manager: Haja Franz MD Calcium [Mass/Vol] 8.5 mg/dL Low 8.6-10.4 [facility] Comment on above: Performed By: #### P T DIME IOCAL, RETCT #### [address] [phone] Consumer Loan Manager: Haja Franz MD Chloride [Moles/Vol] 101 mmol/L Normal 98-107 [facility] Comment on above: Performed By: #### P T DIME IOCAL, RETCT #### [address] [phone] Consumer Loan Manager: Haja Franz MD CO2 [Moles/Vol] 27 mmol/L Normal 20-31 [facility] Comment on above: Performed By: #### P T, DIME, IOCAL, RETCT #### [address] [place] [address] Consumer Loan Manager: Haja Franz MD Creatinine [Mass/Vol] 1.2 mg/dL High 0.5-0.9 [facility] Comment on above: Performed By: #### P RICK Cunha IOCAL, RETCT #### [address] [phone] Consumer Loan Manager: Haja Franz MD GFR/1.73 sq M.predicted among non-blacks MDRD (S/P/Bld) [Vol rate/Area] 53 mL/min/{1.73_m2} Low >60 [facility] Comment on above: Result Comment: These results are not intended for use in patients <18 years of age. eGFR results are calculated without a race factor using the 2020 CKD-EPI equation. Careful clinical correlation is recommended, particularly when comparing to results calculated using previous equations. The CKD-EPI equation is less accurate in patients with extremes of muscle mass, extra-renal metabolism of creatine, excessive creatine ingestion, or following therapy that affects renal tubular secretion. Performed By: #### RICK Hathaway IOCAL, RETCT #### [facility] [address] [place] [phone] Consumer Loan Manager: Haja Franz MD Glucose [Mass/Vol] 158 mg/dL High 70-99 [facility] Comment on above: Performed By: #### RICK Hathaway IOCAL, RETCT #### [facility] [address] [place] [phone] Consumer Loan Manager: Haja Franz MD Potassium [Moles/Vol] 3.8 mmol/L Normal 3.7-5.3 [facility] Comment on above: Performed By: #### P TRICK IOCAL, RETCT #### [facility] [address] [place] [phone] Consumer Loan Manager: Haja Franz MD Sodium [Moles/Vol] 139 mmol/L Normal 135-144 [facility] Comment on above: Performed By: #### P T, DIME, IOCAL, RETCT #### [facility] [address] [place] [phone] Consumer Loan Manager: Haja Franz MD Urea nitrogen [Mass/Vol] 19 mg/dL Normal 6-20 [facility] Comment on above: Performed By: #### P T, DIME, IOCAL, RETCT #### [facility] [address] [place] [phone] Consumer Loan Manager: Haja Franz MD Magnesiumon 10-23-2023 Magnesium [Mass/Vol] 2.1 mg/dL Normal 1.6-2.6 [facility] Comment on above: Performed By: #### P T, DIME, IOCAL, RETCT #### [facility] [address] [place] [phone] Consumer Loan Manager: Haja Franz MD Basic Metabolic Profon 10-22 Anion gap [Moles/Vol] 9 mmol/L Normal 9-17 [facility] Comment on above: Performed By: #### P T, DIME IOCAL, RETCT #### [facility] [address] [place] [phone] Consumer Loan Manager: Haja Franz MD Calcium [Mass/Vol] 8.4 mg/dL Low 8.6-10.4 [facility] Comment on above: Performed By: #### P T, DIME, IOCAL, RETCT #### [facility] [address] [place] [phone] Consumer Loan Manager: Haja Franz MD Chloride [Moles/Vol] 96 mmol/L Low 98-107 [facility] Comment on above: Performed By: #### P T, DIME, IOCAL, RETCT #### [facility] [address] [place] [phone] Consumer Loan Manager: Haja Franz MD CO2 [Moles/Vol] 29 mmol/L Normal 20-31 [facility] Comment on above: Performed By: #### P TRICK IOCAL, RETCT #### [facility] [address] [place] [address] [phone] Consumer Loan Manager: Haja Franz MD Creatinine [Mass/Vol] 1.3 mg/dL High 0.5-0.9 [facility] Comment on above: Performed By: #### P TRICKIE IOCAL, RETCT #### [facility] [address] [place] [phone] Consumer Loan Manager: Haja Franz MD GFR/1.73 sq M.predicted among non-blacks MDRD (S/P/Bld) [Vol rate/Area] 48 mL/min/{1.73_m2} Low >60 [facility] Comment on above: Result Comment: These results are not intended for use in patients <18 years of age. eGFR results are calculated without a race factor using the 2020 CKD-EPI equation. Careful clinical correlation is recommended, particularly when comparing to results calculated using previous equations. The CKD-EPI equation is less accurate in patients with extremes of muscle mass, extra-renal metabolism of creatine, excessive creatine ingestion, or following therapy that affects renal tubular secretion. Performed By: #### P TRICK IOCAL, RETCT #### [facility] [address] [place] [address] [phone] Consumer Loan Manager: Haja Franz MD Glucose [Mass/Vol] 234 mg/dL High 70-99 [facility] Comment on above: Performed By: #### P TRICK IOCAL, RETCT #### [facility] [address] [place] [address] [phone] Consumer Loan Manager: Haja Franz MD Potassium [Moles/Vol] 3.5 mmol/L Low 3.7-5.3 [facility] Comment on above: Performed By: #### P TRICKIECYRUSCAL, RETCT #### [facility] [address] [place] [phone] Consumer Loan Manager: Haja Franz MD Sodium [Moles/Vol] 134 mmol/L Low 135-144 [facility] Comment on above: Performed By: #### P TRICK IOCAL, RETCT #### [facility] [address] [place] [phone] Consumer Loan Manager: Haja Franz MD Urea nitrogen [Mass/Vol] 28 mg/dL High 6-20 [facility] Comment on above: Performed By: #### RICK Hathaway IOCAL, RETCT #### [facility] [address] [place] [phone] Consumer Loan Manager: Haja Franz MD Digoxinon 8 Digoxin [Mass/Vol] 1.4 ng/mL Normal 0.5-2.0 [facility] Comment on above: Result Comment: Digoxin Reference Range: Heart Failure 0.5-0.9 Atrial Fibrillation 0.8-2.0 Performed By: #### RICK Hathaway IOCAL, RETCT #### [address] [phone] Consumer Loan Manager: Haja Franz MD Liver Profileon 9 Albumin [Mass/Vol] 2.7 g/dL Low 3.5-5.2 [facility] Comment on above: Performed By: #### RICK Hathaway IOCAL, RETCT #### [facility] [address] [place] [phone] Consumer Loan Manager: Haja Franz MD Albumin/Glob Ratio 0.8 Low 1.0-2.5 [facility] Comment on above: Performed By: #### P TRICK IOCAL, RETCT #### [facility] [address] [place] [phone] Consumer Loan Manager: Haja Franz MD Alkaline Phos 137 U/L High 35-104 [facility] Comment on above: Performed By: #### P T, DIME, IOCAL, RETCT #### [facility] [address] [place] [phone] Consumer Loan Manager: Haja Franz MD ALT [Catalytic activity/Vol] 25 U/L Normal 5-33 [facility] Comment on above: Performed By: #### P T, DIME IOCAL, RETCT #### [facility] [address] [place] [phone] Consumer Loan Manager: Haja Franz MD AST [Catalytic activity/Vol] 16 U/L Normal <32 [facility] Comment on above: Performed By: #### P T, DIME, IOCAL, RETCT #### [facility] [address] [place] [phone] Consumer Loan Manager: Haja Franz MD Bilirubin [Mass/Vol] 0.6 mg/dL Normal 0.3-1.2 [facility] Comment on above: Performed By: #### P T, DIME IOCAL, RETCT #### [address] [phone] Consumer Loan Manager: Haja Franz MD Bilirubin, Indirect 0.4 mg/dL Normal 0.0-1.0 [facility] Comment on above: Performed By: #### P T, DIME IOCAL, RETCT #### [facility] [address] [place] [phone] Consumer Loan Manager: Haja Franz MD Bilirubin.indirect [Mass/Vol] 0.2 mg/dL Normal <0.3 [facility] Comment on above: Performed By: #### P T, DIME IOCAL, RETCT #### [facility] [address] [place] [phone] Consumer Loan Manager: Haja Franz MD Protein [Mass/Vol] 5.9 g/dL Low 6.4-8.3 [facility] Comment on above: Performed By: #### P T DIME IOCAL, RETCT #### [facility] [address] [place] [phone] Consumer Loan Manager: Haja Franz MD Magnesiumon 10-22-2023 Magnesium [Mass/Vol] 1.9 mg/dL Normal 1.6-2.6 [facility] Comment on above: Performed By: #### P T DIME IOCAL, RETCT #### [facility] [address] [place] [phone] Consumer Loan Manager: Haja Franz MD Basic Metabolic Profon 10-21 Anion gap [Moles/Vol] 10 mmol/L Normal 9-17 [facility] Comment on above: Performed By: #### P T DIME IOCAL, RETCT #### [address] [phone] Consumer Loan Manager: Haja Franz MD Calcium [Mass/Vol] 8.4 mg/dL Low 8.6-10.4 [facility] Comment on above: Performed By: #### P T DIME IOCAL, RETCT #### [facility] [address] [place] [phone] Consumer Loan Manager: Haja Franz MD Chloride [Moles/Vol] 97 mmol/L Low 98-107 [facility] Comment on above: Performed By: #### P T DIME IOCAL, RETCT #### [facility] [address] [place] [phone] Consumer Loan Manager: Haja Franz MD CO2 [Moles/Vol] 28 mmol/L Normal 20-31 [facility] Comment on above: Performed By: #### P T, DIME, IOCAL, RETCT #### [facility] [address] [place] [phone] Consumer Loan Manager: Haja Franz MD Creatinine [Mass/Vol] 1.5 mg/dL High 0.5-0.9 [facility] Comment on above: Performed By: #### P RICK Cunha IOCAL, RETCT #### [address] [phone] Consumer Loan Manager: Haja Franz MD GFR/1.73 sq M.predicted among non-blacks MDRD (S/P/Bld) [Vol rate/Area] 40 mL/min/{1.73_m2} Low >60 [facility] Comment on above: Result Comment: These results are not intended for use in patients <18 years of age. eGFR results are calculated without a race factor using the 2020 CKD-EPI equation. Careful clinical correlation is recommended, particularly when comparing to results calculated using previous equations. The CKD-EPI equation is less accurate in patients with extremes of muscle mass, extra-renal metabolism of creatine, excessive creatine ingestion, or following therapy that affects renal tubular secretion. Performed By: #### P TRICK IOCAL, RETCT #### [facility] [address] [place] [phone] Consumer Loan Manager: Haja Franz MD Glucose [Mass/Vol] 275 mg/dL High 70-99 [facility] Comment on above: Performed By: #### P TRICK IOCAL, RETCT #### [facility] [address] [place] [phone] Consumer Loan Manager: Haja Franz MD Potassium [Moles/Vol] 4.0 mmol/L Normal 3.7-5.3 [facility] Comment on above: Performed By: #### P TRICK IOCAL, RETCT #### [facility] [address] [place] [phone] Consumer Loan Manager: Haja Franz MD Sodium [Moles/Vol] 135 mmol/L Normal 135-144 [facility] Comment on above: Performed By: #### P TRICKIECYRUSCAL, RETCT #### [facility] [address] [place] [phone] Consumer Loan Manager: Haja Franz MD Urea nitrogen [Mass/Vol] 29 mg/dL High 6-20 [facility] Comment on above: Performed By: #### P T, DIME IOCAL, RETCT #### [address] [phone] Consumer Loan Manager: Haja Franz MD CBC with Diffon 10-21-2023 Abs. Basophil 0.09 k/uL Normal 0.00-0.20 [facility] Comment on above: Performed By: #### P T, DIME IOCAL, RETCT #### [address] [phone] Consumer Loan Manager: Haja Franz MD Abs.Imm.Granulocyte 0.07 k/uL Normal 0.00-0.30 [facility] Comment on above: Performed By: #### P T, DIME IOCAL, RETCT #### [place] [address] Consumer Loan Manager: Haja Franz MD Abs.Neutrophil (Seg) 7.38 k/uL Normal 1.50-8.10 [facility] Comment on above: Performed By: #### P T, DIME IOCAL, RETCT #### [place] [address] Consumer Loan Manager: Haja Franz MD Basophils/100 WBC (Bld) 1 % Normal 0-2 [facility] Comment on above: Performed By: #### P T, DIME IOCAL, RETCT #### [address] [phone] Consumer Loan Manager: Haja Franz MD Eosinophils (Bld) [#/Vol] 0.03 10*3/uL Normal 0.00-0.44 [facility] Comment on above: Performed By: #### P T, DIME IOCAL, RETCT #### [address] [phone] Consumer Loan Manager: Haja Franz MD Eosinophils/100 WBC (Bld) 0 % Low 1-4 [facility] Comment on above: Performed By: #### P T, DIME, IOCAL, RETCT #### [place] [address] Consumer Loan Manager: Haja Franz MD Erythrocyte distribution width (RBC) [Ratio] 15.7 % High 11.8-14.4 [facility] Comment on above: Performed By: #### P T DIME IOCAL, RETCT #### [place] [address] Consumer Loan Manager: Haja Franz MD Hematocrit (Bld) [Volume fraction] 35.6 % Low 36.3-47.1 [facility] Comment on above: Performed By: #### P T, DIME IOCAL, RETCT #### [place] [address] Consumer Loan Manager: Haja Franz MD Hemoglobin (Bld) [Mass/Vol] 11.3 g/dL Low 11.9-15.1 [facility] Comment on above: Performed By: #### P T DIME IOCAL, RETCT #### [place] [address] Consumer Loan Manager: Haja Franz MD Immature granulocytes/100 WBC (Bld) 1 % High 0 [facility] Comment on above: Performed By: #### P T, DIME, IOCAL, RETCT #### [place] [address] Consumer Loan Manager: Haja Franz MD Lymphocytes (Bld) [#/Vol] 1.38 10*3/uL Normal 1.10-3.70 [facility] Comment on above: Performed By: #### P T, DIME, IOCAL, RETCT #### [place] [address] Consumer Loan Manager: Haja Franz MD Lymphocytes/100 WBC (Bld) 14 % Low 24-43 [facility] Comment on above: Performed By: #### P T, DIME, IOCAL, RETCT #### [place] [address] Consumer Loan Manager: Haja Franz MD MCH (RBC) [Entitic mass] 28.2 pg Normal 25.2-33.5 [facility] Comment on above: Performed By: #### P T, DIME, IOCAL, RETCT #### [place] [address] Consumer Loan Manager: Haja Franz MD MCHC (RBC) [Mass/Vol] 31.7 g/dL Normal 28.4-34.8 [facility] Comment on above: Performed By: #### P T, DIME, IOCAL, RETCT #### [place] [address] Consumer Loan Manager: Haja Franz MD MCV (RBC) [Entitic vol] 88.8 fL Normal 82.6-102.9 [facility] Comment on above: Performed By: #### P T, DIME, IOCAL, RETCT #### [address], [place] [address] Consumer Loan Manager: Haja Franz MD Monocytes (Bld) [#/Vol] 0.85 10*3/uL Normal 0.10-1.20 [facility] Comment on above: Performed By: #### P T, DIME, IOCAL, RETCT #### [place] [address] Consumer Loan Manager: Haja Farnz MD Monocytes/100 WBC (Bld) 9 % Normal 3-12 [facility] Comment on above: Performed By: #### P T, DIME IOCAL, RETCT #### [address] [address] Consumer Loan Manager: Haja Franz MD Neutrophil (Seg) 75 % High 36-65 [facility] Comment on above: Performed By: #### P T, DIME, IOCAL, RETCT #### [address] [address] Consumer Loan Manager: Haja Franz MD NRBC Automated 0.0 per 100 WBC Normal 0.0 [facility] Comment on above: Performed By: #### P T, DIME, IOCAL, RETCT #### [address] [address] Consumer Loan Manager: Haja Franz MD Platelet mean volume (Bld) [Entitic vol] 10.8 fL Normal 8.1-13.5 [facility] Comment on above: Performed By: #### P T, DIME IOCAL, RETCT #### [address] [phone] Consumer Loan Manager: Haja Franz MD Platelets (Bld) [#/Vol] 273 10*3/uL Normal 138-453 [facility] Comment on above: Performed By: #### P T, DIME, IOCAL, RETCT #### [address] [address] Consumer Loan Manager: Haja Franz MD RBC (Bld) [#/Vol] 4.01 10*6/uL Normal 3.95-5.11 [facility] Comment on above: Performed By: #### P T, DIME, IOCAL, RETCT #### [address] [address] Consumer Loan Manager: Haja Franz MD RBC morphology finding Nom (Bld) ANISOCYTOSIS PRESENT Normal [facility] Comment on above: Performed By: #### P T, DIME, IOCAL, RETCT #### [facility] [address] [place] [address] Consumer Loan Manager: Haja Franz MD WBC (Bld) [#/Vol] 9.8 10*3/uL Normal 3.5-11.3 [facility] Comment on above: Performed By: #### P T, DIME, IOCAL, RETCT #### [facility] [address] [place] [address] Consumer Loan Manager: Haja Franz MD Magnesiumon 10-21-2023 Magnesium [Mass/Vol] 1.7 mg/dL Normal 1.6-2.6 [facility] Comment on above: Performed By: #### P T, DIME, IOCAL, RETCT #### [facility] [address] [place] [phone] Consumer Loan Manager: Haja Franz MD Basic Metabolic Profon 10-20 Anion gap [Moles/Vol] 10 mmol/L Normal 9-17 [facility] Comment on above: Performed By: #### P T, DIME, IOCAL, RETCT #### [facility] [address] [place] [address] Consumer Loan Manager: Haja Franz MD Calcium [Mass/Vol] 8.5 mg/dL Low 8.6-10.4 [facility] Comment on above: Performed By: #### P T, DIME, IOCAL, RETCT #### [facility] [address] [place] [address] Consumer Loan Manager: Haja Franz MD Chloride [Moles/Vol] 97 mmol/L Low 98-107 [facility] Comment on above: Performed By: #### P T, DIME, IOCAL, RETCT #### [facility] [address] [place] [address] Consumer Loan Manager: Haja Franz MD CO2 [Moles/Vol] 30 mmol/L Normal 20-31 [facility] Comment on above: Performed By: #### RICK Hathaway IOCAL, RETCT #### [address] [address] Consumer Loan Manager: Haja Franz MD Creatinine [Mass/Vol] 1.4 mg/dL High 0.5-0.9 [facility] Comment on above: Performed By: #### RICK Hathaway IOCAL, RETCT #### [address] [address] Consumer Loan Manager: Haja Franz MD GFR/1.73 sq M.predicted among non-blacks MDRD (S/P/Bld) [Vol rate/Area] 44 mL/min/{1.73_m2} Low >60 [facility] Comment on above: Result Comment: These results are not intended for use in patients <18 years of age. eGFR results are calculated without a race factor using the 2020 CKD-EPI equation. Careful clinical correlation is recommended, particularly when comparing to results calculated using previous equations. The CKD-EPI equation is less accurate in patients with extremes of muscle mass, extra-renal metabolism of creatine, excessive creatine ingestion, or following therapy that affects renal tubular secretion. Performed By: #### RICK Hathaway IOCAL, RETCT #### [address] [address] Consumer Loan Manager: Haja Franz MD Glucose [Mass/Vol] 177 mg/dL High 70-99 [facility] Comment on above: Performed By: #### RICK Hathaway IOCAL, RETCT #### [address] [address] Consumer Loan Manager: Haja Franz MD Potassium [Moles/Vol] 3.8 mmol/L Normal 3.7-5.3 [facility] Comment on above: Performed By: #### P T, RICKIE IOCAL, RETCT #### [address] [address] Consumer Loan Manager: Haja Franz MD Sodium [Moles/Vol] 137 mmol/L Normal 135-144 [facility] Comment on above: Performed By: #### P T DIME IOCAL, RETCT #### [address] [address] Consumer Loan Manager: Haja Franz MD Urea nitrogen [Mass/Vol] 31 mg/dL High 6-20 [facility] Comment on above: Performed By: #### P TRICKIE IOCAL, RETCT #### [address] [phone] Consumer Loan Manager: Haja Franz MD CBCon 10-20-2023 Erythrocyte distribution width (RBC) [Ratio] 16.0 % High 11.8-14.4 [facility] Comment on above: Performed By: #### P TRICK IOCAL, RETCT #### [address] [address] Consumer Loan Manager: Haja Franz MD Hematocrit (Bld) [Volume fraction] 34.7 % Low 36.3-47.1 [facility] Comment on above: Performed By: #### P TRICKIE IOCAL, RETCT #### [facility] [address] [place] [address] Consumer Loan Manager: Haja Franz MD Hemoglobin (Bld) [Mass/Vol] 10.9 g/dL Low 11.9-15.1 [facility] Comment on above: Performed By: #### P T, DIME IOCAL, RETCT #### [facility] [address] [place] [address] Consumer Loan Manager: Haja Franz MD MCH (RBC) [Entitic mass] 28.1 pg Normal 25.2-33.5 [facility] Comment on above: Performed By: #### P T, DIME, IOCAL, RETCT #### [address] [address] Consumer Loan Manager: Haja Franz MD MCHC (RBC) [Mass/Vol] 31.4 g/dL Normal 28.4-34.8 [facility] Comment on above: Performed By: #### P T, DIME, IOCAL, RETCT #### [address] [address] Consumer Loan Manager: Haja Franz MD MCV (RBC) [Entitic vol] 89.4 fL Normal 82.6-102.9 [facility] Comment on above: Performed By: #### P T, DIME, IOCAL, RETCT #### [address] [address] Consumer Loan Manager: Haja Franz MD NRBC Automated 0.0 per 100 WBC Normal 0.0 [facility] Comment on above: Performed By: #### P T, DIME IOCAL, RETCT #### [address] [address] Consumer Loan Manager: Haja Franz MD Platelet mean volume (Bld) [Entitic vol] 11.2 fL Normal 8.1-13.5 [facility] Comment on above: Performed By: #### P T, DIME, IOCAL, RETCT #### [address] [address] Consumer Loan Manager: Haja Franz MD Platelets (Bld) [#/Vol] 313 10*3/uL Normal 138-453 [facility] Comment on above: Performed By: #### P T, DIME, IOCAL, RETCT #### [address] [address] Consumer Loan Manager: Haja Franz MD RBC (Bld) [#/Vol] 3.88 10*6/uL Low 3.95-5.11 [facility] Comment on above: Performed By: #### P RICK Cunha IOCAL, RETCT #### [facility] [address] [place], [place] [phone] Consumer Loan Manager: Haja Franz MD WBC (Bld) [#/Vol] 10.6 10*3/uL Normal 3.5-11.3 [facility] Comment on above: Performed By: #### P RICK Cunha IOCAL, RETCT #### [facility] [address] [place], [place] [phone] Consumer Loan Manager: Haja Franz MD D-Dimer Teston 10-20-2023 D-Dimer Test 0.90 ug/mL FEU High 0.00-0.57 [facility] Comment on above: Result Comment: When combined with a low clinical probability, a D dimer value of <0.50 ug/mL FEU is considered negative for DVT and PE (negative predictive value of 98%, sensitivity of 97%). If this test is not being used to help rule out DVT and PE, then the following reference range should be utilized: 0.00 - 0.57 ug/mL FEU. The D-Dimer assay is intended for use as an aid in the diagnosis of venous thromboembolism (DVT and PE) and the results should be interpreted in conjunction with the patient's medical history, clinical presentation, and other findings. Elevated levels of D-dimer activity can be seen in any state of coagulation activation and is not recommended in patients with therapeutic dose anticoagulant therapy for >24 hours, fibrinolytic therapy within the previous 7 days, trauma or surgery within the previous 4 weeks, disseminated malignancies, aortic aneurysm, sepsis, severe infections, pneumonia, severe skin infections, liver cirrhosis, advanced age, coronary disease, diabetes, and . A very low percentage of patients with DVT may yield D-dimer results below the cutoff of 0.5 ug/mL FEU. This is known to be more prevalent in patients with distal DVT. Performed By: #### P TRICK IOCAL, RETCT #### [employer] [address] [place] [phone] Consumer Loan Manager: Haja Franz MD Liver Profileon 10-20-2023 Albumin [Mass/Vol] 2.8 g/dL Low 3.5-5.2 [facility] Comment on above: Performed By: #### P T, DIME IOCAL, RETCT #### [facility] [address] [place] [phone] Consumer Loan Manager: Haja Franz MD Albumin/Glob Ratio 0.8 Low 1.0-2.5 [facility] Comment on above: Performed By: #### P T, DIME IOCAL, RETCT #### [facility] [address] [place] [phone] Consumer Loan Manager: Haja Franz MD Alkaline Phos 168 U/L High 35-104 [facility] Comment on above: Performed By: #### P T, DIME, IOCAL, RETCT #### [facility] [address] [place] [phone] Consumer Loan Manager: Haja Franz MD ALT [Catalytic activity/Vol] 34 U/L High 5-33 [facility] Comment on above: Performed By: #### P T, DIME IOCAL, RETCT #### [facility] [address] [place] [phone] Consumer Loan Manager: Haja Franz MD AST [Catalytic activity/Vol] 26 U/L Normal <32 [facility] Comment on above: Performed By: #### P T, DIME IOCAL, RETCT #### [employer] [address] [place] [address] Consumer Loan Manager: Haja Franz MD Bilirubin [Mass/Vol] 0.5 mg/dL Normal 0.3-1.2 [facility] Comment on above: Performed By: #### P T, DIME IOCAL, RETCT #### [employer] [address] [place] [phone] Consumer Loan Manager: Haja Franz MD Bilirubin, Indirect 0.3 mg/dL Normal 0.0-1.0 [facility] Comment on above: Performed By: #### P T, DIME, IOCAL, RETCT #### [facility] [address] [place] [phone] Consumer Loan Manager: Haja Franz MD Bilirubin.indirect [Mass/Vol] 0.2 mg/dL Normal <0.3 [facility] Comment on above: Performed By: #### P T DIME IOCAL, RETCT #### [facility] [address] [place] [phone] Consumer Loan Manager: Haja Franz MD Protein [Mass/Vol] 6.3 g/dL Low 6.4-8.3 [facility] Comment on above: Performed By: #### P T, DIME, IOCAL, RETCT #### [address] [address] Consumer Loan Manager: Haja Franz MD Basic Metabolic Profon 10-19 Anion gap [Moles/Vol] 12 mmol/L Normal 9-17 [facility] Comment on above: Performed By: #### P T DIME IOCAL, RETCT #### [address] [address] Consumer Loan Manager: Haja Franz MD Calcium [Mass/Vol] 8.4 mg/dL Low 8.6-10.4 [facility] Comment on above: Performed By: #### P T, DIME, IOCAL, RETCT #### [facility] [address] [place] [phone] Consumer Loan Manager: Haja Franz MD Chloride [Moles/Vol] 100 mmol/L Normal 98-107 [facility] Comment on above: Performed By: #### P T, DIME, IOCAL, RETCT #### [facility] [address] [place] [phone] Consumer Loan Manager: Haja Franz MD CO2 [Moles/Vol] 24 mmol/L Normal 20-31 [facility] Comment on above: Performed By: #### P TRICKIECYRUSCAL, RETCT #### [address] [address] Consumer Loan Manager: Haja Franz MD Creatinine [Mass/Vol] 1.7 mg/dL High 0.5-0.9 [facility] Comment on above: Performed By: #### P TRICK IOCAL, RETCT #### [address] [address] Consumer Loan Manager: Haja Franz MD GFR/1.73 sq M.predicted among non-blacks MDRD (S/P/Bld) [Vol rate/Area] 35 mL/min/{1.73_m2} Low >60 [facility] Comment on above: Result Comment: These results are not intended for use in patients <18 years of age. eGFR results are calculated without a race factor using the 2020 CKD-EPI equation. Careful clinical correlation is recommended, particularly when comparing to results calculated using previous equations. The CKD-EPI equation is less accurate in patients with extremes of muscle mass, extra-renal metabolism of creatine, excessive creatine ingestion, or following therapy that affects renal tubular secretion. Performed By: #### P TRICKIECYRUSCAL, RETCT #### [address] [address] Consumer Loan Manager: Haja Franz MD Glucose [Mass/Vol] 275 mg/dL High 70-99 [facility] Comment on above: Performed By: #### P TRICKIE IOCAL, RETCT #### [facility] [address] [place] [address] Consumer Loan Manager: Haja Franz MD Potassium [Moles/Vol] 4.3 mmol/L Normal 3.7-5.3 [facility] Comment on above: Performed By: #### P T, DIME, IOCAL, RETCT #### [facility] [address] [place] [phone] Consumer Loan Manager: Haja Franz MD Sodium [Moles/Vol] 136 mmol/L Normal 135-144 [facility] Comment on above: Performed By: #### P T, DIME, IOCAL, RETCT #### [facility] [address] [place] [phone] Consumer Loan Manager: Haja Franz MD Urea nitrogen [Mass/Vol] 35 mg/dL High 6-20 [facility] Comment on above: Performed By: #### P T, DIME, IOCAL, RETCT #### [address] [address] Consumer Loan Manager: Haja Franz MD CBCon 10-19-2023 Erythrocyte distribution width (RBC) [Ratio] 16.4 % High 11.8-14.4 [facility] Comment on above: Performed By: #### P T, DIME, IOCAL, RETCT #### [facility] [address] [place] [phone] Consumer Loan Manager: Haja Franz MD Hematocrit (Bld) [Volume fraction] 32.3 % Low 36.3-47.1 [facility] Comment on above: Performed By: #### P T, DIME, IOCAL, RETCT #### [facility] [address] [place] [phone] Consumer Loan Manager: Haja Franz MD Hemoglobin (Bld) [Mass/Vol] 9.8 g/dL Low 11.9-15.1 [facility] Comment on above: Performed By: #### P T, DIME, IOCAL, RETCT #### [facility] [address] [place] [phone] Consumer Loan Manager: Haja Franz MD MCH (RBC) [Entitic mass] 27.9 pg Normal 25.2-33.5 [facility] Comment on above: Performed By: #### P T, DIME, IOCAL, RETCT #### [address] [address] Consumer Loan Manager: Haja Franz MD MCHC (RBC) [Mass/Vol] 30.3 g/dL Normal 28.4-34.8 [facility] Comment on above: Performed By: #### P T, DIME, IOCAL, RETCT #### [address] [address] Consumer Loan Manager: Haja Franz MD MCV (RBC) [Entitic vol] 92.0 fL Normal 82.6-102.9 [facility] Comment on above: Performed By: #### P T, DIME, IOCAL, RETCT #### [address] [address] Consumer Loan Manager: Haja Franz MD NRBC Automated 0.0 per 100 WBC Normal 0.0 [facility] Comment on above: Performed By: #### P T, DIME, IOCAL, RETCT #### [address] [address] Consumer Loan Manager: Haja Franz MD Platelet mean volume (Bld) [Entitic vol] 11.3 fL Normal 8.1-13.5 [facility] Comment on above: Performed By: #### P T, DIME, IOCAL, RETCT #### [address] [phone] Consumer Loan Manager: Haja Franz MD Platelets (Bld) [#/Vol] 275 10*3/uL Normal 138-453 [facility] Comment on above: Performed By: #### P T, DIME, IOCAL, RETCT #### [address] [place] [address] Consumer Loan Manager: Haja Franz MD RBC (Bld) [#/Vol] 3.51 10*6/uL Low 3.95-5.11 [facility] Comment on above: Performed By: #### P TRICKIE IOCAL, RETCT #### [id number] [place] [address] Consumer Loan Manager: Haja Franz MD WBC (Bld) [#/Vol] 13.0 10*3/uL High 3.5-11.3 [facility] Comment on above: Performed By: #### P TRICK IOCAL, RETCT #### [facility] [address] [place] [phone] Consumer Loan Manager: aHja Franz MD Extra Yellow Tubeon 10-19-20 Extra Yellow Tube Normal [facility] Comment on above: Performed By: #### P TRICKIE IOCAL, RETCT #### [address] [address] Consumer Loan Manager: Haja Franz MD US RENAL COMPLETEon 10-19-20 US RENAL COMPLETE EXAMINATION: RETROPERITONEAL ULTRASOUND OF THE KIDNEYS AND URINARY BLADDER 10/19/2023 COMPARISON: None HISTORY: Acute kidney injury FINDINGS: Kidneys: The right kidney measures 13.2 cm in length and the left kidney measures 10 cm in length. Kidneys demonstrate normal cortical echogenicity. No evidence of hydronephrosis or intrarenal stones. Bladder: Unable to evaluate, patient voided prior to exam. IMPRESSION: Unremarkable ultrasound of the kidneys. Patient voided prior to the exam precluding sonographic evaluation of urinary bladder. Interpreted by: Cruz Woody MD Signed by: Cruz Woody MD 10/19/23 Final result Normal [facility] Basic Metabolic Profon 10-18 Anion gap [Moles/Vol] 11 mmol/L Normal 9-17 [facility] Comment on above: Performed By: #### P TRICK IOCAL, RETCT #### [facility] [address] [place] [phone] Consumer Loan Manager: Haja Franz MD Calcium [Mass/Vol] 8.4 mg/dL Low 8.6-10.4 [facility] Comment on above: Performed By: #### P TRICKIECYRUSCAL, RETCT #### [address] [address] Consumer Loan Manager: Haja Franz MD Chloride [Moles/Vol] 96 mmol/L Low 98-107 [facility] Comment on above: Performed By: #### P TRICK IOCAL, RETCT #### [facility] [address] [place] [phone] Consumer Loan Manager: Haja Franz MD CO2 [Moles/Vol] 24 mmol/L Normal 20-31 [facility] Comment on above: Performed By: #### P TRICK IOCAL, RETCT #### [facility] [address] [place] [phone] Consumer Loan Manager: Haja Franz MD Creatinine [Mass/Vol] 2.0 mg/dL High 0.5-0.9 [facility] Comment on above: Performed By: #### P TRICKIECYRUSCAL, RETCT #### [address] [address] Consumer Loan Manager: Haja Franz MD GFR/1.73 sq M.predicted among non-blacks MDRD (S/P/Bld) [Vol rate/Area] 29 mL/min/{1.73_m2} Low >60 [facility] Comment on above: Result Comment: These results are not intended for use in patients <18 years of age. eGFR results are calculated without a race factor using the 2020 CKD-EPI equation. Careful clinical correlation is recommended, particularly when comparing to results calculated using previous equations. The CKD-EPI equation is less accurate in patients with extremes of muscle mass, extra-renal metabolism of creatine, excessive creatine ingestion, or following therapy that affects renal tubular secretion. Performed By: #### RICK Hathaway IOCAL, RETCT #### [facility] [address] [place] [phone] Consumer Loan Manager: Haja Franz MD Glucose [Mass/Vol] 304 mg/dL High 70-99 [facility] Comment on above: Performed By: #### RICK Hathaway IOCAL, RETCT #### [facility] [address] [place] [phone] Consumer Loan Manager: Haja Franz MD Potassium [Moles/Vol] 4.6 mmol/L Normal 3.7-5.3 [facility] Comment on above: Performed By: #### RICK Hathaway IOCAL, RETCT #### [address] [address] Consumer Loan Manager: Haja Franz MD Sodium [Moles/Vol] 131 mmol/L Low 135-144 [facility] Comment on above: Performed By: #### RICK Hathaway IOCAL, RETCT #### [facility] [address] [place] [phone] Consumer Loan Manager: Haja Franz MD Urea nitrogen [Mass/Vol] 35 mg/dL High 6-20 [facility] Comment on above: Performed By: #### RICK Hathaway IOCAL, RETCT #### [facility] [address] [place] [phone] Consumer Loan Manager: Haja Franz MD CBCon 10-18-2023 Erythrocyte distribution width (RBC) [Ratio] 16.1 % High 11.8-14.4 [facility] Comment on above: Performed By: #### RICK Hathaway IOCAL, RETCT #### [facility] [address] [place] [phone] Consumer Loan Manager: Haja Franz MD Hematocrit (Bld) [Volume fraction] 31.9 % Low 36.3-47.1 [facility] Comment on above: Performed By: #### P T, DIME IOCAL, RETCT #### [address] [address] Consumer Loan Manager: Haja Franz MD Hemoglobin (Bld) [Mass/Vol] 9.9 g/dL Low 11.9-15.1 [facility] Comment on above: Performed By: #### P T, DIME, IOCAL, RETCT #### [address] [address] Consumer Loan Manager: Haja Franz MD MCH (RBC) [Entitic mass] 27.9 pg Normal 25.2-33.5 [facility] Comment on above: Performed By: #### P T, DIME, IOCAL, RETCT #### [place] [address] Consumer Loan Manager: Haja Franz MD MCHC (RBC) [Mass/Vol] 31.0 g/dL Normal 28.4-34.8 [facility] Comment on above: Performed By: #### P T, DIME, IOCAL, RETCT #### [place] [address] Consumer Loan Manager: Haja Franz MD MCV (RBC) [Entitic vol] 89.9 fL Normal 82.6-102.9 [facility] Comment on above: Performed By: #### P T, DIME, IOCAL, RETCT #### [place] [address] Consumer Loan Manager: Haja Franz MD NRBC Automated 0.0 per 100 WBC Normal 0.0 [facility] Comment on above: Performed By: #### P T, DIME, IOCAL, RETCT #### [place] [address] Consumer Loan Manager: Haja Franz MD Platelet mean volume (Bld) [Entitic vol] 11.6 fL Normal 8.1-13.5 [facility] Comment on above: Performed By: #### P T, RICKIECYRUSCAL, RETCT #### [address] [address] Consumer Loan Manager: Haja Franz MD Platelets (Bld) [#/Vol] 296 10*3/uL Normal 138-453 [facility] Comment on above: Performed By: #### P TRICK IOCAL, RETCT #### [address] [address] Consumer Loan Manager: Haja Franz MD RBC (Bld) [#/Vol] 3.55 10*6/uL Low 3.95-5.11 [facility] Comment on above: Performed By: #### P TRICKIECYRUSCAL, RETCT #### [address] [address] Consumer Loan Manager: Haja Franz MD WBC (Bld) [#/Vol] 8.4 10*3/uL Normal 3.5-11.3 [facility] Comment on above: Performed By: #### P TRICKIECYRUSCAL, RETCT #### [facility] [address] [place] [phone] Consumer Loan Manager: Haja Franz MD Calcium, Ionicon 10-18-2023 Calcium [Moles/Vol] 1.15 mmol/L Normal 1.13-1.33 [facility] Comment on above: Performed By: #### P TRICKIECYRUSCAL, RETCT #### [facility] [address] [place] [phone] Consumer Loan Manager: Haja Franz MD Comp Metabolic Profon 2022 Glucose [Mass/Vol] 442 mg/dL Critically high 70-99 [facility] Comment on above: Performed By: #### C P, TSHX, DIGC, MG #### [address] [phone] Consumer Loan Manager: Haja Franz MD Albumin [Mass/Vol] 2.7 g/dL Low 3.5-5.2 [facility] Comment on above: Performed By: #### C P, TSHX, DIGC, MG #### [address] [address] Consumer Loan Manager: Haja Franz MD Albumin/Glob Ratio 0.8 Low 1.0-2.5 [facility] Comment on above: Performed By: #### C P, TSHX, DIGC, MG #### [address] [phone] Consumer Loan Manager: Haja Franz MD Alkaline Phos 203 U/L High 35-104 [facility] Comment on above: Performed By: #### C P, TSHX, DIGC, MG #### [address] [phone] Consumer Loan Manager: Haja Franz MD ALT [Catalytic activity/Vol] 32 U/L Normal 5-33 [facility] Comment on above: Performed By: #### C P, TSHX, DIGC, MG #### [address] [address] Consumer Loan Manager: Haja Franz MD Anion gap [Moles/Vol] 16 mmol/L Normal 9-17 [facility] Comment on above: Performed By: #### C P, TSHX, DIGC, MG #### [facility] [address] [place] [phone] Consumer Loan Manager: Haja Franz MD AST [Catalytic activity/Vol] 22 U/L Normal <32 [facility] Comment on above: Performed By: #### C P, TSHX, DIGC, MG #### [facility] [address] [place] [phone] Consumer Loan Manager: Haja Franz MD Bilirubin [Mass/Vol] 0.3 mg/dL Normal 0.3-1.2 [facility] Comment on above: Performed By: #### C P, TSHX, DIGC, MG #### [facility] [address] [place] [address] [phone] Consumer Loan Manager: Haja Franz MD Calcium [Mass/Vol] 8.4 mg/dL Low 8.6-10.4 [facility] Comment on above: Performed By: #### C P, TSHX, DIGC, MG #### [facility] [address] [place] [address] [phone] Consumer Loan Manager: Haja Franz MD Chloride [Moles/Vol] 95 mmol/L Low 98-107 [facility] Comment on above: Performed By: #### C P, TSHX, DIGC, MG #### [facility] [address] [place] [address] [phone] Consumer Loan Manager: Haja Franz MD CO2 [Moles/Vol] 18 mmol/L Low 20-31 [facility] Comment on above: Performed By: #### C P, TSHX, DIGC, MG #### [facility] [address] [place] [address] [phone] Consumer Loan Manager: Haja Franz MD Creatinine [Mass/Vol] 2.1 mg/dL High 0.5-0.9 [facility] Comment on above: Performed By: #### C P, TSHX, DIGC, MG #### [facility] [address] [place] [address] [phone] Consumer Loan Manager: Haja Franz MD GFR/1.73 sq M.predicted among non-blacks MDRD (S/P/Bld) [Vol rate/Area] 27 mL/min/{1.73_m2} Low >60 [facility] Comment on above: Result Comment: These results are not intended for use in patients <18 years of age. eGFR results are calculated without a race factor using the 2020 CKD-EPI equation. Careful clinical correlation is recommended, particularly when comparing to results calculated using previous equations. The CKD-EPI equation is less accurate in patients with extremes of muscle mass, extra-renal metabolism of creatine, excessive creatine ingestion, or following therapy that affects renal tubular secretion. Performed By: #### C P, TSHX, DIGC, MG #### [facility] [address] [place] [address] [phone] Consumer Loan Manager: Haja Franz MD Potassium [Moles/Vol] 5.3 mmol/L Normal 3.7-5.3 [facility] Comment on above: Performed By: #### C P, TSHX, DIGC, MG #### [facility] [address] [place] [address] [phone] Consumer Loan Manager: Haja Franz MD Protein [Mass/Vol] 6.3 g/dL Low 6.4-8.3 [facility] Comment on above: Performed By: #### C P, TSHX, DIGC, MG #### [facility] [address] [place] [address] [phone] Consumer Loan Manager: Haja Franz MD Sodium [Moles/Vol] 129 mmol/L Low 135-144 [facility] Comment on above: Performed By: #### C P, TSHX, DIGC, MG #### [facility] [address] [place] [address] [phone] Consumer Loan Manager: Haja Franz MD Urea nitrogen [Mass/Vol] 35 mg/dL High 6-20 [facility] Comment on above: Performed By: #### C P, TSHX, DIGC, MG #### [facility] [address] [place] [address] [phone] Consumer Loan Manager: Haja Franz MD D-Dimer Teston 10-18-2023 D-Dimer Test 0.95 ug/mL FEU High 0.00-0.57 [facility] Comment on above: Result Comment: When combined with a low clinical probability, a D dimer value of <0.50 ug/mL FEU is considered negative for DVT and PE (negative predictive value of 98%, sensitivity of 97%). If this test is not being used to help rule out DVT and PE, then the following reference range should be utilized: 0.00 - 0.57 ug/mL FEU. The D-Dimer assay is intended for use as an aid in the diagnosis of venous thromboembolism (DVT and PE) and the results should be interpreted in conjunction with the patient's medical history, clinical presentation, and other findings. Elevated levels of D-dimer activity can be seen in any state of coagulation activation and is not recommended in patients with therapeutic dose anticoagulant therapy for >24 hours, fibrinolytic therapy within the previous 7 days, trauma or surgery within the previous 4 weeks, disseminated malignancies, aortic aneurysm, sepsis, severe infections, pneumonia, severe skin infections, liver cirrhosis, advanced age, coronary disease, diabetes, and . A very low percentage of patients with DVT may yield D-dimer results below the cutoff of 0.5 ug/mL FEU. This is known to be more prevalent in patients with distal DVT. Performed By: #### P TRICK IOCAL, RETCT #### [facility] [address] [place] [address] [phone] Consumer Loan Manager: Haja Franz MD Digoxinon 10-18-2023 Digoxin [Mass/Vol] 1.8 ng/mL Normal 0.5-2.0 [facility] Comment on above: Result Comment: Digoxin Reference Range: Heart Failure 0.5-0.9 Atrial Fibrillation 0.8-2.0 Performed By: #### C P TSHX, DIGC, MG #### [facility] [place] [address] Consumer Loan Manager: Haja Franz MD Gammaglutamyl Transon 2022 Amylase [Catalytic activity/Vol] 107 U/L High 5-36 [facility] Comment on above: Performed By: #### P T, DIME, IOCAL, RETCT #### [facility] [address] [place] [address] [phone] Consumer Loan Manager: Haja Franz MD Hemoglobin A1Con 10-18-2023 Glucose [Mass/Vol] 200 mg/dL Normal [facility] Comment on above: Result Comment: The ADA and AACC recommend providing the estimated average glucose result to permit better patient understanding of their HBA1c result. Performed By: #### P RICK Cunha IOCAL, RETCT #### [facility] [address] [place] [address] [phone] Consumer Loan Manager: Haja Franz MD HbA1c (Bld) [Mass fraction] 8.6 % High 4.0-6.0 [facility] Comment on above: Performed By: #### P RICK Cunha IOCAL, RETCT #### [facility] [address] [place] [address] [phone] Consumer Loan Manager: Haja Franz MD Magnesiumon 10-18-2023 Magnesium [Mass/Vol] 2.1 mg/dL Normal 1.6-2.6 [facility] Comment on above: Performed By: #### C P, TSHX, DIGC, MG #### [facility] [address] [place] [address] [phone] Consumer Loan Manager: Haja Franz MD PTon 10-18-2023 INR Coag (PPP) [Relative time] 1.8 {INR} Normal [facility] Comment on above: Result Comment: Therapeutic Range: Moderate Anticoagulant Intensity: INR = 2.0-3.0 High Anticoagulant Intensity: INR = 2.5-3.5 Performed By: #### P RICK Cunha IOCAL, RETCT #### [facility] [address] [place] [address] [phone] Consumer Loan Manager: Haja Franz MD PT Coag (PPP) [Time] 20.8 s High 11.7-14.9 [facility] Comment on above: Performed By: #### P T, DIME, IOCAL, RETCT #### [facility] [address] [place] [address] [phone] Consumer Loan Manager: Haja Franz MD Retic Counton 10-18-2023 Absolute Retic 0.080 M/uL Normal 0.030-0.080 [facility] Comment on above: Performed By: #### P T, DIME, IOCAL, RETCT #### [facility] [address] [place] [address] [phone] Consumer Loan Manager: Haja Franz MD IRF 21.7 % High 2.7-18.3 [facility] Comment on above: Performed By: #### P T, DIME, IOCAL, RETCT #### [facility] [address] [place] [address] [phone] Consumer Loan Manager: Haja Franz MD Retic Count 2.2 % High 0.5-1.9 [facility] Comment on above: Performed By: #### P T, DIME, IOCAL, RETCT #### [facility] [address] [place] [address] [phone] Consumer Loan Manager: Haja Franz MD Retic Hemoglobin 28.6 pg Normal 28.2-35.7 [facility] Comment on above: Performed By: #### P T, DIME, IOCAL, RETCT #### [facility] [address] [place] [address] [phone] Consumer Loan Manager: Haja Franz MD TSH w/reflex to FT4on 2022 Thyroid Stim. Horm. 0.61 uIU/mL Normal 0.30-5.00 [facility] Comment on above: Performed By: #### C P, TSHX, DIGC, MG #### [facility] [address] [place] [address] [phone] Consumer Loan Manager: Haja Franz MD UA w/Reflex Cultureon 2022 Bilirubin, SemiQt,Ur Negative Normal NEG [facility] Comment on above: Performed By: #### C P, TSHX, DIGC, MG #### [address] [phone] Consumer Loan Manager: Haja Franz MD Blood, Urine MODERATE Abnormal NEG [facility] Comment on above: Performed By: #### C P, TSHX, DIGC, MG #### [facility] [address] [phone] Consumer Loan Manager: Haja Franz MD Clarity (U) Clear Normal CLEAR [facility] Comment on above: Performed By: #### C P, TSHX, DIGC, MG #### [facility] [address] [phone] Consumer Loan Manager: Haja Franz MD Color (U) Yellow Normal YEL [facility] Comment on above: Performed By: #### C P, TSHX, DIGC, MG #### [facility] [address] [place] [address] [phone] Consumer Loan Manager: Haja Franz MD Glucose Ql (U) 2+ mg/dL Abnormal NEG [facility] Comment on above: Performed By: #### C P, TSHX, DIGC, MG #### [facility] [address] [place] [address] [phone] Consumer Loan Manager: Haja Franz MD Ketones Ql (U) Negative Normal NEG [facility] Comment on above: Performed By: #### C P, TSHX, DIGC, MG #### [facility] [address] [place] [address] [phone] Consumer Loan Manager: Haja Franz MD Leukocyte esterase Test strip Ql (U) TRACE Abnormal NEG [facility] Comment on above: Performed By: #### C P, TSHX, DIGC, MG #### [facility] [address] [place] [address] [phone] Consumer Loan Manager: Haja Franz MD Nitrite,Ur Negative Normal NEG [facility] Comment on above: Performed By: #### C P, TSHX, DIGC, MG #### [address] [phone] Consumer Loan Manager: Haja Franz MD PH,Ur 6.5 Normal 5.0-8.0 [facility] Comment on above: Performed By: #### C P, TSHX, DIGC, MG #### [facility] [address] [place] [address] [phone] Consumer Loan Manager: Haja Franz MD Protein Ql (U) Negative Normal NEG [facility] Comment on above: Performed By: #### C P, TSHX, DIGC, MG #### [address] [phone] Consumer Loan Manager: Haja Franz MD Spec. [place],Ur 1.009 Normal 1.005-1.[address] [facility] Comment on above: Performed By: #### C P, TSHX, DIGC, MG #### [address] [phone] Consumer Loan Manager: Haja Franz MD Urobilinogen,Ur Normal Normal 0.0-1.0 [facility] Comment on above: Performed By: #### C P, TSHX, DIGC, MG #### [address] [phone] Consumer Loan Manager: Haja Franz MD Urinalysis,Microon 3 Bacteria None Normal NONE [facility] Comment on above: Performed By: #### P T, RICKIE, IOCAL, RETCT #### [address] [phone] Consumer Loan Manager: Haja Franz MD Casts None Normal 0-8 [facility] Comment on above: Result Comment: Refe rence range defined for non-centrifuged specimen. Performed By: #### P T, DIME, IOCAL, RETCT #### [facility] [address] [place] [phone] Consumer Loan Manager: Haja Franz MD Epithelial cells LM Ql (Urine sed) 0 TO 2 Normal 0-5 [facility] Comment on above: Performed By: #### P T, DIME, IOCAL, RETCT #### [facility] [address] [place] [address] [phone] Consumer Loan Manager: Haja Franz MD Urine RBC's 20 TO 50 Normal 0-4 [facility] Comment on above: Result Comment: Refe rence range defined for non-centrifuged specimen. Performed By: #### P T, DIME IOCAL, RETCT #### [place] [address] Consumer Loan Manager: Haja Franz MD Urine WBC's 2 TO 5 Normal 0-5 [facility] Comment on above: Performed By: #### P T, DIME IOCAL, RETCT #### [place] [address] Consumer Loan Manager: Haja Franz MD Brain Natri. Peptideon 10-17 Natriuretic peptide B (Bld) [Mass/Vol] 3274 pg/mL High <300 [facility] Comment on above: Result Comment: An age-independent cutoff point of 300 pg/ml has a 98% negative predictive value excluding acute heart failure. Performed By: #### P T, DIME, IOCAL, RETCT #### [place] [address] Consumer Loan Manager: Haja Franz MD CBC with Diffon 10-17-2023 Abs. Basophil 0.00 k/uL Normal 0.0-0.2 [facility] Comment on above: Performed By: #### P T, DIME, IOCAL, RETCT #### [place] [address] Consumer Loan Manager: Haja Franz MD Abs.Imm.Granulocyte 0.06 k/uL Normal 0.00-0.30 [facility] Comment on above: Performed By: #### P T, DIME, IOCAL, RETCT #### [place] [address] Consumer Loan Manager: Haja Franz MD Abs.Neutrophil (Seg) 5.73 k/uL Normal 1.8-7.7 [facility] Comment on above: Performed By: #### P T, DIME IOCAL, RETCT #### [place] [address] Consumer Loan Manager: Haja Franz MD Basophils/100 WBC (Bld) 0 % Normal 0-2 [facility] Comment on above: Performed By: #### P T, DIME, IOCAL, RETCT #### [place] [address] Consumer Loan Manager: Haja Franz MD Eosinophils (Bld) [#/Vol] 0.00 10*3/uL Normal 0.0-0.4 [facility] Comment on above: Performed By: #### P T, DIME, IOCAL, RETCT #### [place] [address] Consumer Loan Manager: Haja Franz MD Eosinophils/100 WBC (Bld) 0 % Low 1-4 [facility] Comment on above: Performed By: #### P T, DIME, IOCAL, RETCT #### [place] [address] Consumer Loan Manager: Haja Franz MD Immature granulocytes/100 WBC (Bld) 1 % High 0 [facility] Comment on above: Performed By: #### P T, DIME, IOCAL, RETCT #### [address] [address] Consumer Loan Manager: Haja Franz MD Lymphocytes (Bld) [#/Vol] 0.38 10*3/uL Low 1.0-4.8 [facility] Comment on above: Performed By: #### P T, DIME, IOCAL, RETCT #### [address] [address] Consumer Loan Manager: Haja Franz MD Lymphocytes/100 WBC (Bld) 6 % Low 24-44 [facility] Comment on above: Performed By: #### P T, DIME, IOCAL, RETCT #### [address] [address] Consumer Loan Manager: Haja Franz MD Monocytes (Bld) [#/Vol] 0.13 10*3/uL Normal 0.1-0.8 [facility] Comment on above: Performed By: #### P T, DIME, IOCAL, RETCT #### [address] [address] Consumer Loan Manager: Haja Franz MD Monocytes/100 WBC (Bld) 2 % Normal 1-7 [facility] Comment on above: Performed By: #### P T, DIME, IOCAL, RETCT #### [place] [address] Consumer Loan Manager: Haja Franz MD Morphology Ace (Bld) [Interp] ANISOCYTOSIS PRESENT Normal [facility] Comment on above: Performed By: #### P T, DIME, IOCAL, RETCT #### [address] [phone] Consumer Loan Manager: Haja Franz MD Neutrophil (Seg) 91 % High 36-66 [facility] Comment on above: Performed By: #### P T, DIME, IOCAL, RETCT #### [address] [address] Consumer Loan Manager: Haja Franz MD Erythrocyte distribution width (RBC) [Ratio] 16.3 % High 11.8-14.4 [facility] Comment on above: Performed By: #### P T, DIME IOCAL, RETCT #### [address] [address] Consumer Loan Manager: Haja Franz MD Hematocrit (Bld) [Volume fraction] 32.4 % Low 36.3-47.1 [facility] Comment on above: Performed By: #### P T, DIME IOCAL, RETCT #### [address] [address] Consumer Loan Manager: Haja Franz MD Hemoglobin (Bld) [Mass/Vol] 10.1 g/dL Low 11.9-15.1 [facility] Comment on above: Performed By: #### P T, DIME IOCAL, RETCT #### [address] [phone] Consumer Loan Manager: Haja Franz MD MCH (RBC) [Entitic mass] 27.8 pg Normal 25.2-33.5 [facility] Comment on above: Performed By: #### P T DIME IOCAL, RETCT #### [address] [address] Consumer Loan Manager: Haja Franz MD MCHC (RBC) [Mass/Vol] 31.2 g/dL Normal 28.4-34.8 [facility] Comment on above: Performed By: #### P T, DIME, IOCAL, RETCT #### [address] [phone] Consumer Loan Manager: Haja Franz MD MCV (RBC) [Entitic vol] 89.3 fL Normal 82.6-102.9 [facility] Comment on above: Performed By: #### P T, DIME, IOCAL, RETCT #### [address] [address] Consumer Loan Manager: Haja Franz MD NRBC Automated 0.0 per 100 WBC Normal 0.0 [facility] Comment on above: Performed By: #### P T, DIME, IOCAL, RETCT #### [address] [phone] Consumer Loan Manager: Haja Franz MD Platelet mean volume (Bld) [Entitic vol] 11.1 fL Normal 8.1-13.5 [facility] Comment on above: Performed By: #### P T, DIME, IOCAL, RETCT #### [address] [address] Consumer Loan Manager: Haja Franz MD Platelets (Bld) [#/Vol] 316 10*3/uL Normal 138-453 [facility] Comment on above: Performed By: #### P T, DIME, IOCAL, RETCT #### [address] [address] Consumer Loan Manager: Haja Franz MD RBC (Bld) [#/Vol] 3.63 10*6/uL Low 3.95-5.11 [facility] Comment on above: Performed By: #### P T, DIME, IOCAL, RETCT #### [address] [address] Consumer Loan Manager: Haja Franz MD WBC (Bld) [#/Vol] 6.3 10*3/uL Normal 3.5-11.3 [facility] Comment on above: Performed By: #### P T, DIME, IOCAL, RETCT #### [address] [address] Consumer Loan Manager: Haja Franz MD Comp Metabolic Pr/rfx MGon 1 12-17-2022 Albumin [Mass/Vol] 2.9 g/dL Low 3.5-5.2 [facility] Comment on above: Performed By: #### P T, DIME IOCAL, RETCT #### [facility] [address] [place] [phone] Consumer Loan Manager: Haja Franz MD Albumin/Glob Ratio 0.8 Low 1.0-2.5 [facility] Comment on above: Performed By: #### P T, DIME IOCAL, RETCT #### [facility] [address] [place] [phone] Consumer Loan Manager: Haja Franz MD Alkaline Phos 217 U/L High 35-104 [facility] Comment on above: Performed By: #### P T, DIME IOCAL, RETCT #### [facility] [address] [place] [address] [phone] Consumer Loan Manager: Haja Franz MD ALT [Catalytic activity/Vol] 36 U/L High 5-33 [facility] Comment on above: Performed By: #### P T, DIME IOCAL, RETCT #### [facility] [address] [place] [address] [phone] Consumer Loan Manager: Haja Franz MD Anion gap [Moles/Vol] 12 mmol/L Normal 9-17 [facility] Comment on above: Performed By: #### P T, DIME, IOCAL, RETCT #### [facility] [address] [place] [phone] Consumer Loan Manager: Haja Franz MD AST [Catalytic activity/Vol] 23 U/L Normal <32 [facility] Comment on above: Performed By: #### P T, DIME IOCAL, RETCT #### [facility] [address] [place] [phone] Consumer Loan Manager: Haja Franz MD Bilirubin [Mass/Vol] 0.2 mg/dL Low 0.3-1.2 [facility] Comment on above: Performed By: #### P TRICK IOCAL, RETCT #### [facility] [address] [place] [phone] Consumer Loan Manager: Haja Franz MD Calcium [Mass/Vol] 8.5 mg/dL Low 8.6-10.4 [facility] Comment on above: Performed By: #### P TRICKIECYRUSCAL, RETCT #### [facility] [address] [place] [address] [phone] Consumer Loan Manager: Haja Franz MD Chloride [Moles/Vol] 96 mmol/L Low 98-107 [facility] Comment on above: Performed By: #### P TRICK IOCAL, RETCT #### [facility] [address] [place] [phone] Consumer Loan Manager: Haja Franz MD CO2 [Moles/Vol] 23 mmol/L Normal 20-31 [facility] Comment on above: Performed By: #### P TRICKIECYRUSCAL, RETCT #### [facility] [address] [place] [phone] Consumer Loan Manager: Haja Franz MD Creatinine [Mass/Vol] 2.0 mg/dL High 0.5-0.9 [facility] Comment on above: Performed By: #### P T DIME IOCAL, RETCT #### [facility] [address] [place] [phone] Consumer Loan Manager: Haja Franz MD GFR/1.73 sq M.predicted among non-blacks MDRD (S/P/Bld) [Vol rate/Area] 29 mL/min/{1.73_m2} Low >60 [facility] Comment on above: Result Comment: These results are not intended for use in patients <18 years of age. eGFR results are calculated without a race factor using the 2020 CKD-EPI equation. Careful clinical correlation is recommended, particularly when comparing to results calculated using previous equations. The CKD-EPI equation is less accurate in patients with extremes of muscle mass, extra-renal metabolism of creatine, excessive creatine ingestion, or following therapy that affects renal tubular secretion. Performed By: #### P RICK Cunha IOCAL, RETCT #### [facility] [address] [place] [phone] Consumer Loan Manager: Haja Franz MD Glucose [Mass/Vol] 317 mg/dL High 70-99 [facility] Comment on above: Performed By: #### P RICK Cunha IOCAL, RETCT #### [facility] [address] [place] [phone] Consumer Loan Manager: Haja Franz MD Potassium [Moles/Vol] 5.2 mmol/L Normal 3.7-5.3 [facility] Comment on above: Performed By: #### P TRICKIE IOCAL, RETCT #### [facility] [address] [place] [phone] Consumer Loan Manager: Haja Franz MD Protein [Mass/Vol] 6.7 g/dL Normal 6.4-8.3 [facility] Comment on above: Performed By: #### P TRICKIECYRUSCAL, RETCT #### [facility] [address] [place] [phone] Consumer Loan Manager: Haja Franz MD Sodium [Moles/Vol] 131 mmol/L Low 135-144 [facility] Comment on above: Performed By: #### P TRICKIECYRUSCAL, RETCT #### [facility] [address] [place] [address] [phone] Consumer Loan Manager: Haja Franz MD Urea nitrogen [Mass/Vol] 34 mg/dL High 6-20 [facility] Comment on above: Performed By: #### P TRICKIE IOCAL, RETCT #### [facility] [address] [place] [address] Consumer Loan Manager: Haja Franz MD XR CHEST PORTABLEon 10-17-20 XR CHEST PORTABLE EXAMINATION: ONE XRAY VIEW OF THE CHEST 10/17/2023 6:31 pm COMPARISON: None. HISTORY: ORDERING SYSTEM PROVIDED HISTORY: chf TECHNOLOGIST PROVIDED HISTORY: chf FINDINGS: There is no confluent airspace consolidation pleural effusion. There is no interstitial prominence. There is cardiomegaly and mild vascular congestion. There are small calcified granulomata bilaterally. IMPRESSION: 1. Cardiomegaly and pulmonary vascular congestion without evidence of interstitial edema. 2. No confluent airspace consolidation. Interpreted by: Cale Haney MD Signed by: Cale Haney MD 10/17/23 Final result Normal [facility] CT SINUSES WO CONon 03-26-20 CT SINUSES WO CON EXAMINATION: CT SINU SES WO CON HISTORY: Chronic sinusitis COMPARISON: CT sinuses 02/21/2023 TECHNIQUE: Axial and Coronal CT images were created without IV contrast. Dose reduction techniques were achieved by using automated exposure control and/or adjustment of mA and/or kV according to patient size and/or use of iterative reconstruction technique. FINDINGS: MAXILLARY SINUSES: Right maxillary sinus contains a thin layer mucosal thickening and a small amount of retained secretions, and has a patent, but nearly occluded, ostiomeatal complex. Left maxillary sinus is nearly completely opacified due to mucosal thickening and small amount of fluid. Completely occluded ostiomeatal complex. ETHMOID SINUSES: Trace amount of mucosal thickening within a few ethmoid air cells. Fovea ethmoidali and lamina papyracea are symmetric and intact. SPHENOID SINUSES: No significant mucosal thickening or fluid. Sphenoethmoidal recesses are patent. No bony dehiscence. FRONTAL SINUSES: Trace amount of mucosal thickening. The frontal ethmoidal recesses are patent. NASAL FOSSA: No significant deviation of the nasal septum. No stephanie bullosa or paradoxical turbinates are identified. OTHER: Negative. Limited views of the skull base and orbits are unremarkable. IMPRESSION: 1. Left maxillary sinus marked chronic sinusitis; slightly progressed. 2. Trace amount of changes from chronic sinusitis scattered within the remaining paranasal sinuses; significantly improved compared to prior study. Electronically authenticated by: LAZARUS SNOW Date: 2023-03-26 14:[address] [facility] [address] LUNG CANCER SCREENINGon 0 02-21-2023 CT LUNG CANCER SCREENING EXAMINATION: CT LUNG CANCER SCREENING HISTORY: Tobacco dependence caused by cigarettes COMPARISON: No relevant comparison available. TECHNIQUE: Axial, Coronal, and Sagittal images were created without the administration of IV contrast material. Dose reduction techniques were achieved by using automated exposure control and/or adjustment of mA and/or kV according to patient size and/or use of iterative reconstruction technique. FINDINGS: LUNGS: Numerous tiny calcified nodules and a few noncalcified nodules scattered within the lungs favoring granulomas. A few larger calcifications. 6 mm irregular noncalcified nodule versus infiltrate within posterior lateral right upper lobe at level of hilum. PLEURA: No mass, effusion, or pneumothorax. VASCULATURE: No abnormality. NOEMY: No mass or pathologic adenopathy. MEDIASTINUM: No mass or pathologic adenopathy. CARDIAC: Marked atherosclerotic coronary artery disease. No cardiac enlargement or pericardial effusion. AORTA: No aneurysm or dissection. CHEST WALL: No mass or axillary adenopathy BONES: No bone lesion or fracture. LIMITED ABDOMEN: No suspicious findings. Limited images of the upper abdomen. OTHER: Negative. IMPRESSION: 1. Lung-RADS Category 3- Probably benign. Probably benign finding(s)- short term follow up suggested; includes nodules with a low likelihood of becoming a clinically active cancer. Six month LDCT. 2. Nonspecific 6 mm nodule within lateral right lower lobe at level of hilum; follow-up is recommended. Innumerable additional nodules compatible with chronic granulomas. 3. Marked atherosclerotic coronary artery disease. Electronically authenticated by: LAZARUS SNOW Date: 2023-02-21 09:55 Normal [facility] CT SINUSES WO CONon 02-22-[address] SINUSES WO CON EXAMINATION: CT SINU SES WO CON HISTORY: Chronic sinusitis COMPARISON: No relevant comparison available. TECHNIQUE: Axial and Coronal CT images were created without IV contrast. Dose reduction techniques were achieved by using automated exposure control and/or adjustment of mA and/or kV according to patient size and/or use of iterative reconstruction technique. FINDINGS: MAXILLARY SINUSES: Marked mucosal thickening filling the majority of the sinus bilaterally. Fluid levels within the sinuses bilaterally Complete obstruction of the ostiomeatal complex. ETHMOID SINUSES: Marked mucosal thickening filling majority of the air cells. SPHENOID SINUSES: Mild mucosal thickening bilaterally. FRONTAL SINUSES: Mild mucosal thickening bilaterally. NASAL FOSSA: 2 mm leftward deviation of the nasal septum inferiorly and 3 mm rightward deviation of the septum superiorly. Mucosal thickening throughout the nasal passageway, left greater than right. No stephanie bullosa or paradoxical turbinates are identified. OTHER: Negative. Limited views of the skull base and orbits are unremarkable. IMPRESSION: 1. Marked chronic pansinusitis. Fluid levels within maxillary sinuses suggesting acute on chronic sinusitis. Electronically authenticated by: LAZARUS SNOW Date: 2023-02-21 09:39 Normal [facility] JACQUES by IFAon 02-05-2023 Antinuclear Antibodies, IFA Negative Normal [facility] Comment on above: Result Comment: Nega tive <1:80 Borderline 1:80 Positive >1:80 ICAP nomenclature: AC-0 For more information about Hep-2 cell patterns use ANApatterns.org, the official website for the International Consensus on Antinuclear Antibody (JACQUES) Patterns (ICAP). Performed By: #### C VDTBH #### [facility] [address] [address] [address] Efrain Zuñiga ANTISTREPTOLYSIN O AB (ASO)o n 02-02-2023 Antistreptolysin O Ab 36.5 IU/mL Normal 0.0-200.0 [facility] Comment on above: Performed By: #### A SOAB #### [facility] [address] [place] [address] Dr. Efrain Zuñiga INSULINon 02-02-2023 Insulin 15.7 uIU/mL Normal 2.6-24.9 [facility] Comment on above: Performed By: #### P OCGLUC #### [facility] [address] [place] [address] Dr. Efrain Zuñiga RHEUMATOID FACTORon 02-03-20 23 RA Latex Turbid. <10.0 Normal <14.0 [facility] Comment on above: Performed By: #### R F #### [facility] [address] [place] [address] Dr. Efrain Zuñiga XR SINUSES 3 VIEWS OR GREATE Joshua 02-02-2023 XR SINUSES 3 VIEWS OR GREATER EXAMINATION: XR SINUSES 3 VIEWS OR GREATER HISTORY: Disorder of the nose ; acute nasal congestion COMPARISON: No relevant comparison available. FINDINGS: MAXILLARY: Asymmetrically greater opacity throughout the left maxillary sinus suggestive of mucosal thickening. Thin rim of mucosal thickening within right maxillary sinus. ETHMOID: No appreciable mucosal thickening. FRONTAL: Diffuse mildly increased opacity. SPHENOID: No appreciable mucosal thickening OTHER: Negative. IMPRESSION: 1. Suspect multifocal chronic sinusitis with possible left maxillary acute sinusitis. Electronically authenticated by: LAZARUS SNOW Date: 2023-02-02 06:55 Normal [facility] CBC AUTO DIFFon 02-01-2023 BASO # 0.0 103/ul Normal 0.0-0.1 [facility] Comment on above: Performed By: #### A SOAB #### [facility] [address] [place] [address] Dr. Efrain Zuñiga Basophils/100 WBC (Bld) 0.4 % Normal 0.2-2.0 [facility] Comment on above: Performed By: #### A SOAB #### [facility] [address] [address] [address] Efrain Zuñiga EO # 0.1 103/ul Normal 0.0-0.7 [facility] Comment on above: Performed By: #### A SOAB #### [facility] [address] [place] [address] Dr. Efrain Zuñiga Eosinophils/100 WBC (Bld) 1.2 % Normal 0.9-7.0 [facility] Comment on above: Performed By: #### A SOAB #### [facility] [address] [address] [address] Efrain Zuñiga Erythrocyte distribution width (RBC) [Ratio] 14.6 % Normal 11.0-15.0 [facility] Comment on above: Performed By: #### A SOAB #### [facility] [address] [place] [address] Dr. Efrain Zuñiga Hematocrit (Bld) [Volume fraction] 35.9 % Critically low 36.0-48.0 [facility] Comment on above: Performed By: #### A SOAB #### [facility] [address] [place] [address] Dr. Efrain Zuñiga Hemoglobin (Bld) [Mass/Vol] 11.9 g/dL Critically low 12.0-16.0 [facility] Comment on above: Performed By: #### A SOAB #### [facility] [address] [place] [address] Dr. Efrain Zuñiga IG # 0.09 10e3/ul Critically high 0.00-0.03 [facility] Comment on above: Performed By: #### A SOAB #### [facility] [address] [place] [address] Dr. Efrain Zuñiga IG % 0.9 % Critically high 0.0-0.5 [facility] Comment on above: Performed By: #### A SOAB #### [facility] [address] [place] [address] Dr. Efrain Zuñiga LYMPH # 2.7 103/ul Normal 1.2-3.8 [facility] Comment on above: Performed By: #### A SOAB #### [facility] [address] [place] [address] Dr. Efrain Zuñiga Lymphocytes/100 WBC (Bld) 26.3 % Normal 20.5-60.0 [facility] Comment on above: Performed By: #### A SOAB #### [facility] [address] [place] [address] Dr. Efrain Zuñiga MANUAL DIFF REQ NO Normal [facility] Comment on above: Performed By: #### A SOAB #### [facility] [address] [place] [address] Dr. Efrain Zuñiga MCH (RBC) [Entitic mass] 29.8 pg Normal 26.7-34.0 [facility] Comment on above: Performed By: #### A SOAB #### [facility] [address] [place] [address] Dr. Efrain Zuñiga MCHC (RBC) [Mass/Vol] 33.1 g/dL Normal 29.9-35.2 [facility] Comment on above: Performed By: #### A SOAB #### [facility] [address] [place] [address] Dr. Efrain Zuñiga MCV (RBC) [Entitic vol] 90.0 fL Normal 81.0-99.0 [facility] Comment on above: Performed By: #### A SOAB #### [facility] [address] [place] [address] Dr. Efrain Zuñiga MONO # 0.7 103/ul Normal 0.3-0.8 [facility] Comment on above: Performed By: #### A SOAB #### [facility] [address] [place] [address] Dr. Efrain Zuñiga Monocytes/100 WBC (Bld) 6.7 % Normal 1.7-12.0 [facility] Comment on above: Performed By: #### A SOAB #### [facility] [address] [place] [address] Dr. Efrain Zuiñga NEUT # 6.6 103/ul Critically high 1.4-6.5 [facility] Comment on above: Performed By: #### A SOAB #### [facility] [address] [place] [address] Dr. Efrain Zuñiga Neutrophils/100 WBC (Bld) 64.5 % Normal 43.0-75.0 [facility] Comment on above: Performed By: #### A SOAB #### [facility] [address] [place] [address] Dr. Efrain Zuñiga Platelet mean volume (Bld) [Entitic vol] 11.3 fL Normal 9.5-13.5 [facility] Comment on above: Performed By: #### A SOAB #### [facility] [address] [place] [address] Dr. Efrain Zuñiga PLT 190 103/ul Normal 150-450 [facility] Comment on above: Performed By: #### A SOAB #### [facility] [address] [place] [address] Dr. Efrain Zuñiga RBC 3.99 106/ul Critically low 4.20-5.40 [facility] Comment on above: Performed By: #### A SOAB #### [facility] [address] [place] [address] Dr. Efrain Zuñiga WBC 10.2 103/ul Normal 4.0-11.0 [facility] Comment on above: Performed By: #### A SOAB #### [facility] [address] [address] [address] Efrain Zuñiga CRPon 02-01-2023 CRP [Mass/Vol] mg/L Normal <=1.0 [facility] Comment on above: Performed By: #### R F #### [facility] [address] [address] [address] Efrain Zuñiga FREE THYROXINE INDEX T7on FTI 2.31 Normal 1.30-4.50 [facility] Comment on above: Performed By: #### R F #### [facility] [address] [place] [address] Dr. Efrain Zuñiga T3U 33.0 % Normal 30.0-39.0 [facility] Comment on above: Performed By: #### R F #### [facility] [address] [place] [address] Dr. Efrain Zuñiga T4 [Mass/Vol] 7.00 ug/dL Normal 4.80-13.90 [facility] Comment on above: Performed By: #### R F #### [facility] [address] [place] [address] Dr. Efrain Zuñiga GLYCOHEMOGLOBIN A1Con 2022 ADA RECOMMENDATION SEE BELOW Normal [facility] Comment on above: Result Comment: ADA RECOMMENDED LIMIT 4.0 - 6.0 ADA THERAPEUTIC TARGET < 7.0 ACTION SUGGESTED > 7.0 Performed By: #### P OCGLUC #### [facility] [address] [place] [address] Dr. Efrain Zuñiga Glucose [Mass/Vol] 186 mg/dL Normal [facility] Comment on above: Performed By: #### P OCGLUC #### [facility] [address] [place] [address] Dr. Efrain Zuñiga HbA1c (Bld) [Mass fraction] 8.1 % Critically high 4.5-6.2 [facility] Comment on above: Performed By: #### P OCGLUC #### [facility] [address] [place] [address] Dr. Efrain Zuñiga IRONon 02-01-2023 Iron [Mass/Vol] 67.0 ug/dL Normal 50.0-170.0 [facility] Comment on above: Performed By: #### C VDTBH #### [facility] [address] [place] [address] Dr. Efrain Zuñiga LIPID PROFILEon 02-01-2023 CHOL-HDL RATIO NORM SEE BELOW Normal [facility] Comment on above: Result Comment: 3.3 - 4.4 LOW RISK 4.4 - 7.1 AVERAGE RISK 7.1 - 11.0 MODERATE RISK >11.0 HIGH RISK Performed By: #### R F #### [facility] [address] [place] [address] Dr. Efrain Zuñiga Cholesterol [Mass/Vol] 104 mg/dL Normal <=200 [facility] Comment on above: Performed By: #### R F #### [facility] [address] [place] [address] Dr. Efrain Zuñiga Cholesterol in HDL [Mass/Vol] 28 mg/dL Critically low 40-60 [facility] Comment on above: Performed By: #### R F #### [facility] [address] [place] [address] Dr. Efrain Zuñiga Cholesterol in LDL [Mass/Vol] 52.6 mg/dL Normal [facility] Comment on above: Performed By: #### R F #### [facility] [address] [place] [address] Dr. Efrain Zuñiga Cholesterol.total/Ch olesterol in HDL [Mass ratio] 3.7 {ratio} Normal [facility] Comment on above: Performed By: #### R F #### [facility] [address] [place] [address] Dr. Efrain Zuñiga HDL NORMAL > or = 60 mg/dl - LO W CARDIOVASCULAR RISK <40 mg/dl - HIGH CARDIOVASCULAR RISK Normal [facility] Comment on above: Performed By: #### R F #### [facility] [address] [place] [address] Dr. Efrain Zuñiga LDL CALC NORMAL SEE BELOW Normal [facility] Comment on above: Result Comment: <100 mg/dl OPTIMAL 100 - 129 mg/dl NEAR OR ABOVE OPTIMAL 130 - 159 mg/dl BORDERLINE HIGH 160 - 189 mg/dl HIGH >190 mg/dl VERY HIGH Performed By: #### R F #### [facility] [address] [address] [address] Efrain Zuñiga Triglyceride [Mass/Vol] 117 mg/dL Normal <=150 [facility] Comment on above: Performed By: #### R F #### [facility] [address] [address] [address] Efrain Zuñiga VLDL CALC 23.4 mg/dL Normal [facility] Comment on above: Performed By: #### R F #### [facility] [address] [place] [address] Dr. Efrain Zuñiga PROF 14(COMP METB)on 023 Albumin [Mass/Vol] 3.1 g/dL Critically low 3.4-5.0 [facility] Comment on above: Performed By: #### C RP, CMP, TSH, T7, LIPID, URIC #### [facility] [address] [address] [address] Efrain Zuñiga Albumin/Globulin [Mass ratio] 0.9 {ratio} Normal [facility] Comment on above: Performed By: #### C RP, CMP, TSH, T7, LIPID, URIC #### [facility] [address] [address] [address] Efrain Zuñiga ALP [Catalytic activity/Vol] 132 U/L Critically high 46-116 [facility] Comment on above: Performed By: #### C RP, CMP, TSH, T7, LIPID, URIC #### [facility] [address] [address] [address] Efrain Zuñiga ALT [Catalytic activity/Vol] 40 U/L Normal 14-59 [facility] Comment on above: Performed By: #### C RP, CMP, TSH, T7, LIPID, URIC #### [facility] [address] [address] [address] Efrain Zuñiga Anion gap [Moles/Vol] 14.6 mmol/L Normal [facility] Comment on above: Performed By: #### C RP, CMP, TSH, T7, LIPID, URIC #### [facility] [address] [address] [address] Efrain Zuñiga AST [Catalytic activity/Vol] 18 U/L Normal 15-37 [facility] Comment on above: Performed By: #### C RP, CMP, TSH, T7, LIPID, URIC #### [facility] [address] [address] [address] Efrain Zuñiga Bilirubin [Mass/Vol] 0.5 mg/dL Normal 0.2-1.0 [facility] Comment on above: Performed By: #### C RP, CMP, TSH, T7, LIPID, URIC #### [facility] [address] [place] [address] Dr. Efrain Zuñiga Calcium [Mass/Vol] 8.8 mg/dL Normal 8.5-10.1 [facility] Comment on above: Performed By: #### C RP, CMP, TSH, T7, LIPID, URIC #### [facility] [address] [place] [address] Dr. Efrain Zuñiga Chloride [Moles/Vol] 106 mmol/L Normal 98-107 [facility] Comment on above: Performed By: #### C RP, CMP, TSH, T7, LIPID, URIC #### [facility] [address] [place] [address] Dr. Efrain Zuñiga CO2 [Moles/Vol] 24.2 mmol/L Normal 21.0-32.0 [facility] Comment on above: Performed By: #### C RP, CMP, TSH, T7, LIPID, URIC #### [facility] [address] [address] [address] Efrain Zuñiga Creatinine [Mass/Vol] 1.08 mg/dL Critically high 0.55-1.02 [facility] Comment on above: Performed By: #### C RP, CMP, TSH, T7, LIPID, URIC #### [facility] [address] [place] [address] Dr. Efrain Zuñiga EGFR-AF HONDURAN >60 Normal >=60 [facility] Comment on above: Performed By: #### C RP, CMP, TSH, T7, LIPID, URIC #### [facility] [address] [place] [address] Dr. Efrain Zuñiga EGFR-NON AF HONDURAN 52 mL/min/1.73m2 Critically low >=60 [facility] Comment on above: Performed By: #### C RP, CMP, TSH, T7, LIPID, URIC #### [facility] [address] [address] [address] Efrain Zuñiga Globulin (S) [Mass/Vol] 3.6 g/dL Normal [facility] Comment on above: Performed By: #### C RP, CMP, TSH, T7, LIPID, URIC #### [facility] [address] [place] [address] Dr. Efrain Zuñiga Glucose [Mass/Vol] 184 mg/dL Critically high 74-106 [facility] Comment on above: Performed By: #### C RP, CMP, TSH, T7, LIPID, URIC #### [facility] [address] [place] [address] Dr. Efrain Zuñiga Potassium [Moles/Vol] 4.8 mmol/L Normal 3.5-5.1 [facility] Comment on above: Performed By: #### C RP, CMP, TSH, T7, LIPID, URIC #### [facility] [address] [place] [address] Dr. Efrain Zuñiga Protein [Mass/Vol] 6.7 g/dL Normal 6.4-8.2 [facility] Comment on above: Performed By: #### C RP, CMP, TSH, T7, LIPID, URIC #### [facility] [address] [place] [address] Dr. Efrain Zuñiga Sodium [Moles/Vol] 140 mmol/L Normal 136-145 [facility] Comment on above: Performed By: #### C RP, CMP, TSH, T7, LIPID, URIC #### [facility] [address] [place] [address] Dr. Efrain Zuñiga Urea nitrogen [Mass/Vol] 32.0 mg/dL Critically high 7.0-18.0 [facility] Comment on above: Performed By: #### C RP, CMP, TSH, T7, LIPID, URIC #### [facility] [address] [place] [address] Dr. Efrain Zuñiga Urea nitrogen/Creatinine [Mass ratio] 29.6 mg/mg Normal [facility] Comment on above: Performed By: #### C RP, CMP, TSH, T7, LIPID, URIC #### [facility] [address] [address] [address] Efrain Zuñiga TSHon 02-01-2023 TSH 0.495 uIU/mL Normal 0.358-3.740 [facility] Comment on above: Performed By: #### C RP, CMP, TSH, T7, LIPID, URIC #### [facility] [address] [place] [address] Dr. Efrain Zuñiga URIC ACID SERUMon 02-01-2023 Urate [Mass/Vol] 7.6 mg/dL Critically high 2.6-6.0 [facility] Comment on above: Performed By: #### R F #### [facility] [address] [place] [address] Dr. Efrain Zuñiga [facility] SARS-CoV-2 (COVID-19) RNA ASHLEIGH+probe Ql (Unsp spec) Not detected Normal NOT DETECTED [facility] Comment on above: Result Comment: This test is not yet approved or cleared by the [place] FDA. When there are no FDA-approved or cleared tests available, and other criteria are met, FDA can make tests available under an emergency access mechanism called an Emergency Use Authorization (EUA). The EUA for this test is supported by the Counseling Case Manager of Health and Human Service's (HHS's) declaration that circumstances exist to justify the emergency use of in vitro diagnostics for the detection and/or diagnosis of the virus that causes COVID-19. This EUA will remain in effect (meaning this test can be used) for the duration of the COVID-19 declaration justifying emergency of IVDs, unless it is terminated or revoked by FDA (after which the test may no longer be used). When diagnostic testing is negative, the possibility of a false negative should be considered in the context of a patient's recent exposures and the presence of clinical signs and symptoms consistent with SARS-CoV-2. Performed By: #### C VDTB #### [facility] [address] [place] [address] Dr. Efrain Zuñiga INFLUENZA A AND B AGon 12-01 [facility] SEE BELOW Normal [facility] Comment on above: Result Comment: Nega tive for Flu A protein angiten. Infection due to Flu A cannot be ruled out. Flu A angiten in the sample may be below the detection limit of the test. Performed By: #### A SOAB #### [facility] [address] [place] [address] Dr. Efrain Zuñiga [facility] SEE BELOW Normal [facility] Comment on above: Result Comment: Nega tive for Flu B protein antigen. Infection due to Flu B cannot be ruled out. Flu B antigen in the sample may be below the detection limit of the test. Performed By: #### A SOAB #### [facility] [address] [place] [address] Dr. Efrain Zuñiga INFLUENZA A AG Negative Normal NEGATIVE SEE COMMENT [facility] Comment on above: Performed By: #### A SOAB #### [facility] [address] [place] [address] Dr. Efrain Zuñiga INFLUENZA B AG Negative Normal NEGATIVE SEE COMMENT [facility] Comment on above: Performed By: #### A SOAB #### [facility] [address] [place] [address] Dr. Efrain Zuñiga 29on 10-09-2022 29 Addended by: POPEYE KAUFFMAN on: 10/11/2022 09:39 AM Modules accepted: Level of Service Normal [facility] Consulton 10-09-2022 Consult [id number] Dorothy Faria 1965 F Date Provider Department Center 10/09/2022 3720-POPEYE KAUFFMAN [facility] SURG Second Fl Chart Close Cosign Accepted by: POPEYE KAUFFMAN[[id number]] Chart Close Cosign Accepted on: Wed Oct 11, 2022 9:51 AM No family history on file Level of Service:43700 [place] OFFICE CONSULTATION NEW/ESTAB PATIENT 40 MIN Reason for Visit and Comments: consultation [Other] - Pt is here for a [place] visit for Lumbar Radiculopathy. Pt states back pain started in . Pt states pain radiates to buttocks. Pt states that she has numbness in both legs. Pt states pain is worse when laying down. Pt states she has trouble walking. Pt states she has tried PT, but did not help. [facility] Ambulatory Visit Summaryon 1 12-04-2021 Ambulatory Visit Summary DOROTHY FARIA :1965 Visit Date:10/04/2022 Ambulatory Visit Instructions Your Care Team Attending Physician - KOSTA BRIONES, Nathan Gerber Primary Care Physician - Cary Santos MD This Is Your Medications List Contact prescribing physician if questions or concerns NIFEdipine (NIFEdipine 30 mg ER Tab) albuterol (albuterol HFA 90 mcg/inh MDI) atorvastatin (atorvastatin 80 mg Tab) budesonide-formoterol (Symbicort 160/4.5 inhalation aerosol with adapter) clopidogrel (Plavix 75 mg Tab) duloxetine (duloxetine 60 mg Cap-DR) ergocalciferol (Vitamin D) furosemide (Lasix 40 mg Tab) insulin aspart (Insulin Aspart FlexPen) insulin glargine (Lantus Solostar Pen) lisinopril (lisinopril 10 mg Tab) metoprolol (Metoprolol tartrate 25 mg Tab) nitroglycerin (nitroglycerin 0.4 mg sublingual Tab) pramipexole (pramipexole 0.5 mg) terbinafine (terbinafine 250 mg oral tablet) tizanidine (tiZANidine 4 mg Tab) Procedures Performed Placement of stent in cardiac conduit (2021), Placement of stent in cardiac conduit (2011), section (1999), section (1993), Abscess of breast, Amputation of toe, Carpal tunnel release, Fusion of lumbar spine, Large bowel resection, Repair of incisional hernia, Repair of ventral hernia, Repair of ventral hernia, Tonsillectomy and adenoidectomy. Medications What How Much When Instructions Unchanged albuterol (albuterol HFA 90 mcg/ inh MDI) 2 Puffs Inhalation 4 times a day as needed for Shortness of breath or wheezing Contact prescribing physician if questions or concerns Unchanged atorvastatin (atorvastatin 80 mg Tab) 1 Tablets By Mouth Every day Contact prescribing physician if questions or concerns Unchanged budesonide-formoterol (Symbicort 160/ 4.5 inhalation aerosol with adapter) 2 Puffs Inhalation 2 times a day Contact prescribing physician if questions or concerns Unchanged clopidogrel (Plavix 75 mg Tab) 1 Tablets By Mouth Every day Contact prescribing physician if questions or concerns Unchanged duloxetine (duloxetine 60 mg Cap-DR) 2 Capsules By Mouth Every day Contact prescribing physician if questions or concerns Unchanged ergocalciferol (Vitamin D) 5,000 Units By Mouth Every day Contact prescribing physician if questions or concerns Unchanged furosemide (Lasix 40 mg Tab) 1 Tablets By Mouth Every day Contact prescribing physician if questions or concerns Unchanged insulin aspart (Insulin Aspart FlexPen) as directed Contact prescribing physician if questions or concerns Unchanged insulin glargine (Lantus Solostar Pen) 30 Units Subcutaneous 2 times a day Contact prescribing physician if questions or concerns Unchanged lisinopril (lisinopril 10 mg Tab) 1 Tablets By Mouth Every day Contact prescribing physician if questions or concerns Unchanged metoprolol (Metoprolol tartrate 25 mg Tab) 1 Tablets By Mouth 2 times a day Contact prescribing physician if questions or concerns Unchanged NIFEdipine (NIFEdipine 30 mg ER Tab) 1 Tablets By Mouth At bedtime Contact prescribing physician if questions or concerns Unchanged nitroglycerin (nitroglycerin 0.4 mg sublingual Tab) 1 Tablets Sublingual Every 5 minutes as needed for for chest pain Contact prescribing physician if questions or concerns Unchanged pramipexole (pramipexole 0.5 mg) 1 tab By Mouth At bedtime Contact prescribing physician if questions or concerns Unchanged terbinafine (terbinafine 250 mg oral tablet) 1 Tablets By Mouth Every day Contact prescribing physician if questions or concerns Unchanged tizanidine (tiZANidine 4 mg Tab) 2 Tablets By Mouth At bedtime Contact prescribing physician if questions or concerns Allergies sulfa drugs (Unknown) Problems Ongoing - Any problem that you are currently receiving treatment for. BMI 33.0-33.9,adult Cervical spondylosis Chronic obstructive pulmonary disease Coronary artery disease Coronary artery stenosis Diabetes History of small bowel obstruction Insomnia Ischemic bowel disease Low back pain syndrome Lumbar radiculopathy Neoplasm of uncertain behavior of skin of forearm Right hemiplegia Smoker SVT (supraventricular tachycardia) Ventral hernia Normal [facility] General Surgery Office/Clini c Noteon 10-04-2022 General Surgery Office/Clinic Note Chief Complaint in-office excisional biopsy HPI Staff Presents for in-office excisional biopsy left forearm. Area is no longer raised or scabbed. History of Present Illness patient here for excisional biopsy of left forearm keratotic lesion; area sloughed off; no pain or bleeding. Review of Systems ROS - Provider Constitutional: no fever, no sweats, no weight loss. Eyes: no glasses, no blurred vision, no visual loss. ENMT: no dentures, no hoarseness, no swallowing difficulties, no hearing loss, no ear infection(s), no nose bleeds. Cardiovascular: normal blood pressure, no chest pain, regular heartbeat, no heart murmur. Respiratory: no shortness of breath, no cough, no asthma, no wheezing. Gastrointestinal: no nausea, no vomiting, no diarrhea, no constipation, no blood in stool, no change in bowel habits, no abdominal pain, no hepatitis. Genitourinary: no kidney stones, no urine infection, no dysuria. Musculoskeletal: no pain, no weakness. Skin: no changing moles, no rash, no skin lumps. Neurologic: no seizures, no epilepsy, no headache. Psychiatric: no emotional or psychiatric problem. Heme/Lymph: no bleeding problems, no anemia, no blood clots, no transfusions. Allergy/Immunologic: no swollen lymph nodes/glands, no IV drug abuse. Other: Additional ROS info: Except as noted in the above Review of Systems and in the History of Present Illness, all other systems have been reviewed and are negative or noncontributory. Physical Exam skin: lesion gone, flat area of solar keratoses, no raised area, no pigmentation changers; multiple similar areas on extremities Assessment/Plan 1. Senile solar keratosis (L57.0: Actinic keratosis) keratotic raised lesion gone; monitor for recurrence or nonhealing lesions; no lesions requiring excision at this time; procedure cancelled; call with problems/questions. Follow-up No qualifying data available Problem List/Past Medical History Ongoing BMI 33.0-33.9,adult Cervical spondylosis Chronic obstructive pulmonary disease Coronary artery disease Coronary artery stenosis Diabetes History of small bowel obstruction Insomnia Ischemic bowel disease Low back pain syndrome Lumbar radiculopathy Neoplasm of uncertain behavior of skin of forearm Right hemiplegia Senile solar keratosis Smoker SVT (supraventricular tachycardia) Ventral hernia Historical No qualifying data Procedure/Surgical History Placement of stent in cardiac conduit (2021), Placement of stent in cardiac conduit (2011), section (1999), section (1993), Abscess of breast, Amputation of toe, Carpal tunnel release, Fusion of lumbar spine, Large bowel resection, Repair of incisional hernia, Repair of ventral hernia, Repair of ventral hernia, Tonsillectomy and adenoidectomy. Medications albuterol HFA 90 mcg/inh MDI, 2 puff(s), Inhalation, QID, PRN atorvastatin 80 mg Tab, 80 mg= 1 tab(s), Oral, Daily duloxetine 60 mg Cap-DR, 2 cap(s), Oral, Daily Insulin Aspart FlexPen Lantus Solostar Pen, 30 unit(s), SubCutaneous, BID Lasix 40 mg Tab, 40 mg= 1 tab(s), Oral, Daily lisinopril 10 mg Tab, 10 mg= 1 tab(s), Oral, Daily Metoprolol tartrate 25 mg Tab, 25 mg= 1 tab(s), Oral, BID NIFEdipine 30 mg ER Tab, 30 mg= 1 tab(s), Oral, Bedtime nitroglycerin 0.4 mg sublingual Tab, 0.4 mg= 1 tab(s), SubLingual, q5min, PRN Plavix 75 mg Tab, 75 mg= 1 tab(s), Oral, Daily pramipexole 0.5 mg, 1 tab, Oral, Bedtime Symbicort 160/4.5 inhalation aerosol with adapter, 2 puff(s), Inhalation, BID terbinafine 250 mg oral tablet, 250 mg= 1 tab(s), Oral, Daily tiZANidine 4 mg Tab, 8 mg= 2 tab(s), Oral, Bedtime Vitamin D, 5000 unit(s), Oral, Daily Allergies sulfa drugs (Unknown) Social History Alcohol - Denies Alcohol Use, 09/01/2022 Substance Abuse - Denies Substance Abuse, 09/01/2022 Tobacco 10 or more cigarettes (1/2 pack or more)/day in last 30 days Tobacco Use:. Never Smokeless Tobacco Use:. Cigarettes, 1.5 per day. Started age 16.0 Years. Yes, 09/01/2022 Family History Patient was adopted Normal [facility] Comment on above: Result Comment: Elec tronically Signed By: KOSTA BRIONES, Nathan Harvey\Date and Time Signed: 10/04/22 17:30 EST Facesheeton 09-04-2022 Facesheet [id number]: 127 Normal [facility] MRI LSPINE WO CONon 08-28-20 MRI LSPINE WO CON EXAMINATION: MRI LSP INE WO CON HISTORY: Nerve root disorder COMPARISON: No relevant comparison available. TECHNIQUE: A variety of imaging planes and parameters were utilized for visualization of suspected pathology. FINDINGS: For the purposes of numbering, sagittal T2 image # 8 extends from the 11 vertebral body superiorly to the S3 level inferiorly. PARASPINAL AREA: Normal with no visible mass. Ectasia of the distal aorta measuring up to 2.7 cm in diameter. BONES: 5 mm anterolisthesis of L3 in relation to L4. Extension of intervertebral discs into the superior endplate of L2, incidental Schmorl's node. No acute fracture or bone edema. CORD/CAUDA EQUINA: Normal caliber, contour, and signal intensity. DISC LEVELS: 12-L1: Early degenerative disc disease is present without focal protrusion or neural impingement. L1-L2: Disc collapse left greater than right with Schmorl's node. Moderate diffuse disc/osteophyte complex. Moderate to severe ligamentum flavum hypertrophy. Moderate central canal stenosis measuring 7.2 mm anterior posterior dimension. No foraminal stenosis. L2-L3: No disc space narrowing and disc desiccation. Mild diffuse disc bulge. Moderate ligamentum flavum hypertrophy and facet osteoarthropathy. Mild central canal stenosis. No foraminal stenosis L3-L4: 1 mm anterolisthesis of L3 on L4. Diffuse disc space narrowing and desiccation. Moderate diffuse disc bulge/pseudobulge. Moderate to severe ligamentum flavum hypertrophy and facet osteoarthropathy. Severe narrowing of the central canal measuring 5.4 mm axial image 20. Moderate right and mild left foraminal stenosis L4-L5: Moderate to severe disc space narrowing and disc desiccation with endplate sclerosis. No definite central or foraminal stenosis L5-S1: Disc desiccation. Left L5 hemilaminotomy. Mild diffuse disc/osteophyte complex. No definite central canal or foraminal stenosis IMPRESSION: Moderate diffuse degenerative changes with 5 mm anterolisthesis of L3 on L4 this results in central and foraminal stenosis at multiple levels as detailed above Electronically authenticated by: MARIA LUISA RAMIREZ Date: 2022-08-28 08:29 Normal [facility] Physician Referralon 022 Physician Referral [id number]: 127 Normal [facility] Physician Referralon 022 Physician Referral [id number]: 127 Normal [facility] Activated clotting timeon Activated Clotting Time 369 High [employer] Interpretation and review of laboratory results Abnormal [facility] [employer] CHLORIDE (POC)on 05-15-2022 Chloride [Moles/Vol] 102 mmol/L 98 - 10 7 mmol/L [employer] Catheterization and angiogra phy procedure details panelon 05-15-2022 [employer] Work Phone: Creatinine W/GFR Point of Ca reon 05-15-2022 Creatinine [Mass/Vol] 0.77 mg/dL 0.51 - 1.19 mg/dL [employer] GFR Non- >60 >60 mL/min [employer] GFR/1.73 sq M.predicted MDRD (S/P/Bld) [Vol rate/Area] mL/min/{1.73_m2} >60 mL/min [employer] GFR/1.73 sq M.predicted MDRD (S/P/Bld) [Vol rate/Area] [employer] Comment on above: Average GFR for 50-5 9 years old: 93 mL/min/1.73sq m Chronic Kidney Disease: <60 mL/min/1.73sq m Kidney failure: <15 mL/min/1.73sq m eGFR calculated using average adult body mass. Additional eGFR calculator available at: http://www.[employer].com/multiple_crcl_2012.htm Hemoglobin and hematocrit, b loodon 05-15-2022 Hematocrit (Bld) [Volume fraction] 44 % 36 - 46 % [facility] Hemoglobin (Bld) [Mass/Vol] 14.9 g/dL 12.0 - 16.0 g/dL [facility] No Panel Informationon 05-15 Interpretation and review of laboratory results Abnormal [facility] POCT Glucoseon 05-15-2022 Glucose [Mass/Vol] 314 mg/dL High 74 - 100 mg/dL [facility] POCT urea (BUN)on 05-15-2022 Urea nitrogen [Mass/Vol] 14 mg/dL 8 - 26 mg/dL [facility] POTASSIUM (POC)on 05-15-2022 Potassium [Moles/Vol] 4.4 mmol/L 3.5 - 4.5 mmol/L [facility] Platelet Counton 05-15-2022 Platelets (Bld) [#/Vol] 206 10*3/uL [facility] SODIUM (POC)on 05-15-2022 Sodium [Moles/Vol] 136 mmol/L Low 138 - 146 mmol/L [facility] CBC AUTO DIFFon 04-28-2022 BASO # 0.1 103/ul Normal 0.0-0.1 [facility] Comment on above: Performed By: #### P OCGLUC #### [facility] [address] [address] [address] Efrain Zuñiga Basophils/100 WBC (Bld) 0.6 % Normal 0.2-2.0 [facility] Comment on above: Performed By: #### P OCGLUC #### [facility] [address] [address] [address] Efrain Zuñiga EO # 0.1 103/ul Normal 0.0-0.7 [facility] Comment on above: Performed By: #### P OCGLUC #### [facility] [address] [address] [address] Efrain Zuñiga Eosinophils/100 WBC (Bld) 1.5 % Normal 0.9-7.0 [facility] Comment on above: Performed By: #### P OCGLUC #### [facility] [address] [address] [address] Efrain Zuñiga Erythrocyte distribution width (RBC) [Ratio] 15.1 % Critically high 11.0-15.0 [facility] Comment on above: Performed By: #### P OCGLUC #### [facility] [address] [address] [address] Efrain Zuñiga Hematocrit (Bld) [Volume fraction] 41.3 % Normal 36.0-48.0 [facility] Comment on above: Performed By: #### P OCGLUC #### [facility] [address] [place] [address] Dr. Efrain Zuñiga Hemoglobin (Bld) [Mass/Vol] 13.2 g/dL Normal 12.0-16.0 [facility] Comment on above: Performed By: #### P OCGLUC #### [facility] [address] [place] [address] Dr. Efrain Zuñiga IG # 0.05 10e3/ul Critically high 0.00-0.03 [facility] Comment on above: Performed By: #### P OCGLUC #### [facility] [address] [place] [address] Dr. Efrain Zuñiga IG % 0.6 % Critically high 0.0-0.5 [facility] Comment on above: Performed By: #### P OCGLUC #### [facility] [address] [place] [address] Dr. Efrain Zuñiga LYMPH # 1.5 103/ul Normal 1.2-3.8 [facility] Comment on above: Performed By: #### P OCGLUC #### [facility] [address] [place] [address] Dr. Efrain Zuñiga Lymphocytes/100 WBC (Bld) 17.3 % Critically low 20.5-60.0 [facility] Comment on above: Performed By: #### P OCGLUC #### [facility] [address] [place] [address] Dr. Efrain Zuñiga MANUAL DIFF REQ NO Normal [facility] Comment on above: Performed By: #### P OCGLUC #### [facility] [address] [address] [address] Efrain Zuñiga MCH (RBC) [Entitic mass] 29.9 pg Normal 26.7-34.0 [facility] Comment on above: Performed By: #### P OCGLUC #### [facility] [address] [place] [address] Dr. Efrain Zuñiga MCHC (RBC) [Mass/Vol] 32.0 g/dL Normal 29.9-35.2 [facility] Comment on above: Performed By: #### P OCGLUC #### [facility] [address] [place] [address] Dr. Efrain Zuñiga MCV (RBC) [Entitic vol] 93.4 fL Normal 81.0-99.0 [facility] Comment on above: Performed By: #### P OCGLUC #### [facility] [address] [place] [address] Dr. Efrain Zuñiga MONO # 0.7 103/ul Normal 0.3-0.8 [facility] Comment on above: Performed By: #### P OCGLUC #### [facility] [address] [place] [address] Dr. Efrain Zuñiga Monocytes/100 WBC (Bld) 8.0 % Normal 1.7-12.0 [facility] Comment on above: Performed By: #### P OCGLUC #### [facility] [address] [place] [address] Dr. Efrain Zuñiga NEUT # 6.4 103/ul Normal 1.4-6.5 [facility] Comment on above: Performed By: #### P OCGLUC #### [facility] [address] [place] [address] Dr. Efrain Zuñiga Neutrophils/100 WBC (Bld) 72.0 % Normal 43.0-75.0 [facility] Comment on above: Performed By: #### P OCGLUC #### [facility] [address] [place] [address] Dr. Efrain Zuñiga Platelet mean volume (Bld) [Entitic vol] 11.8 fL Normal 9.5-13.5 [facility] Comment on above: Performed By: #### P OCGLUC #### [facility] [address] [address] [address] Efrain Zuñiga PLT 174 103/ul Normal 150-450 [facility] Comment on above: Performed By: #### P OCGLUC #### [facility] [address] [address] [address] Efrain Zuñiga RBC 4.42 106/ul Normal 4.20-5.40 [facility] Comment on above: Performed By: #### P OCGLUC #### [facility] [address] [place] [address] Dr. Efrain Zuñiga WBC 8.9 103/ul Normal 4.0-11.0 [facility] Comment on above: Performed By: #### P OCGLUC #### [facility] [address] [place] [address] Dr. Efrain Zuñiga POINT OF CARE GLUCOSEon -2021 Glucose [Mass/Vol] 371 mg/dL Critically high 74-106 [facility] Comment on above: Performed By: #### P OCGLUC #### [facility] [address] [place] [address] Dr. Efrain Zuñiga Glucose [Mass/Vol] 214 mg/dL Critically high 74-106 [facility] Comment on above: Performed By: #### P OCGLUC #### [facility] [address] [place] [address] Dr. Efrain Zuñiga PROF 14(COMP METB)on 022 Albumin [Mass/Vol] 2.8 g/dL Critically low 3.4-5.0 [facility] Comment on above: Performed By: #### R F #### [facility] [address] [place] [address] Dr. Efrain Zuñiga Albumin/Globulin [Mass ratio] 0.8 {ratio} Normal [facility] Comment on above: Performed By: #### R F #### [facility] [address] [place] [address] Dr. Efrain Zuñiga ALP [Catalytic activity/Vol] 121 U/L Critically high 46-116 [facility] Comment on above: Performed By: #### R F #### [facility] [address] [address] [address] Efrain Zuñiga ALT [Catalytic activity/Vol] 54 U/L Normal 14-59 [facility] Comment on above: Performed By: #### R F #### [facility] [address] [address] [address] Efrain Zuñiga Anion gap [Moles/Vol] 13.7 mmol/L Normal [facility] Comment on above: Performed By: #### R F #### [facility] [address] [address] [address] Efrain Zuñiga AST [Catalytic activity/Vol] 45 U/L Critically high 15-37 [facility] Comment on above: Performed By: #### R F #### [facility] [address] [address] [address] Efrain Zuñiga Bilirubin [Mass/Vol] 0.9 mg/dL Normal 0.2-1.0 [facility] Comment on above: Performed By: #### R F #### [facility] [address] [address] [address] Efrain Zuñiga Calcium [Mass/Vol] 8.5 mg/dL Normal 8.5-10.1 [facility] Comment on above: Performed By: #### R F #### [facility] [address] [address] [address] Efrain Zuñiga Chloride [Moles/Vol] 103 mmol/L Normal 98-107 [facility] Comment on above: Performed By: #### R F #### [facility] [address] [address] [address] Efrain Zuñiga CO2 [Moles/Vol] 26.4 mmol/L Normal 21.0-32.0 [facility] Comment on above: Performed By: #### R F #### [facility] [address] [address] [address] Efrain Zuñiga Creatinine [Mass/Vol] 0.94 mg/dL Normal 0.55-1.02 [facility] Comment on above: Performed By: #### R F #### [facility] [address] [address] [address] Efrain Zuñiga EGFR-AF HONDURAN >60 Normal >=60 [facility] Comment on above: Performed By: #### R F #### [facility] [address] [address] [address] Efrain Zuñiga EGFR-NON AF HONDURAN >60 Normal >=60 [facility] Comment on above: Performed By: #### R F #### [facility] [address] [address] [address] Efrain Zuñiga Globulin (S) [Mass/Vol] 3.5 g/dL Normal [facility] Comment on above: Performed By: #### R F #### [facility] [address] [address] [address] Efrain Zuñiga Glucose [Mass/Vol] 243 mg/dL Critically high 74-106 [facility] Comment on above: Performed By: #### R F #### [facility] [address] [address] [address] Efrain Zuñiga Potassium [Moles/Vol] 4.1 mmol/L Normal 3.5-5.1 [facility] Comment on above: Performed By: #### R F #### [facility] [address] [address] [address] Efrain Zuñiga Protein [Mass/Vol] 6.3 g/dL Critically low 6.4-8.2 [facility] Comment on above: Performed By: #### R F #### [facility] [address] [address] [address] Efrain Zuñiga Sodium [Moles/Vol] 139 mmol/L Normal 136-145 [facility] Comment on above: Performed By: #### R F #### [facility] [address] [address] [address] Efrain Zuñiga Urea nitrogen [Mass/Vol] 10.0 mg/dL Normal 7.0-18.0 [facility] Comment on above: Performed By: #### R F #### [facility] [address] [place], [place] [address] Dr. Efrain Zuñiga Urea nitrogen/Creatinine [Mass ratio] 10.6 mg/mg Normal [facility] Comment on above: Performed By: #### R F #### [facility] [address], [place] [address] Dr. Efrain Zuñiga XR ABD FLAT UP_PA Brodie 04-28 XR ABD FLAT UP_PA CH EXAMINATION: XR ABD FLAT UP_PA CH HISTORY: UNSPECIFIED ABDOMINAL PAIN COMPARISON: No relevant comparison available. FINDINGS: LUNGS: Mild infiltrates versus atelectasis within left lung base. MEDIASTINUM: No abnormal widening. BOWEL GAS PATTERN: Nasogastric tube looped within the stomach. No significant bowel dilation or air-fluid levels. Moderate amount of stool throughout the colon. FREE AIR: None. CALCIFICATIONS: None significant. BONES: No fracture or visible bone lesion. OTHER: Negative. IMPRESSION: 1. Mild left basilar infiltrates versus atelectasis; stable to minimally improved. 2. Nasogastric tube in good position. 3. No bowel obstruction or appreciable ileus on today's study. Moderate-large stool burden. Electronically authenticated by: LAZARUS SNOW Date: 2022-04-28 07:14 Normal [facility] XR ABD FLAT UP_PA CH ACUTE ABDOMINAL SER IES HISTORY: Abdominal pain TECHNIQUE: A single view of the chest and 2 views of the abdomen and pelvis are submitted for review. COMPARISON: 04/27/2022 at 8:07 PM FINDINGS: Chest x-ray: Enteric tube overlies the gastric lumen. Clips are seen in the right upper quadrant. Contrast is seen within the bladder. The lungs are adequately expanded. Trace blunting of the left costophrenic angle. There is no acute infiltrate. There is no evidence for effusion. The cardiomediastinal silhouette measures within normal limits. Pulmonary vascularity is unremarkable. Osseous structures are within normal limits for age.. Abdomen: There is no evidence of free air.. The bowel gas pattern is nonobstructive. There are no abnormal calcifications. Osseous structures are within normal limits. IMPRESSION: Chest x-ray: No plain film evidence for acute cardiopulmonary disease. Abdomen: 1. Nonobstructive bowel gas pattern. 2. Moderate retention of stool. Electronically authenticated by: EMILIANA CURTIS Date: 2022-04-27 22:01 Normal [facility] AMYLASEon 04-27-2022 Amylase [Catalytic activity/Vol] 36 U/L Normal 25-115 [facility] Comment on above: Performed By: #### P OCGLUC #### [facility] [address] [place] [address] Dr. Efrain Zuñiga CBC AUTO DIFFon 04-27-2022 BASO # 0.1 103/ul Normal 0.0-0.1 [facility] Comment on above: Performed By: #### P OCGLUC #### [facility] [address] [place] [address] Dr. Efrain Zuñiga Basophils/100 WBC (Bld) 0.8 % Normal 0.2-2.0 [facility] Comment on above: Performed By: #### P OCGLUC #### [facility] [address] [place] [address] Dr. Efrain Zuñiga EO # 0.1 103/ul Normal 0.0-0.7 [facility] Comment on above: Performed By: #### P OCGLUC #### [facility] [address] [address] [address] Efrain Zuñiga Eosinophils/100 WBC (Bld) 0.5 % Critically low 0.9-7.0 [facility] Comment on above: Performed By: #### P OCGLUC #### [facility] [address] [place] [address] Dr. Efrain Zuñiga Erythrocyte distribution width (RBC) [Ratio] 15.1 % Critically high 11.0-15.0 [facility] Comment on above: Performed By: #### P OCGLUC #### [facility] [address] [place] [address] Dr. Efrain Zuñiga Hematocrit (Bld) [Volume fraction] 44.2 % Normal 36.0-48.0 [facility] Comment on above: Performed By: #### P OCGLUC #### [facility] [address] [place] [address] Dr. Efrain Zuñiga Hemoglobin (Bld) [Mass/Vol] 14.6 g/dL Normal 12.0-16.0 [facility] Comment on above: Performed By: #### P OCGLUC #### [facility] [address] [address] [address] Efrain Zuñiga IG # 0.09 10e3/ul Critically high 0.00-0.03 [facility] Comment on above: Performed By: #### P OCGLUC #### [facility] [address] [address] [address] Efrain Zuñiga IG % 0.8 % Critically high 0.0-0.5 [facility] Comment on above: Performed By: #### P OCGLUC #### [facility] [address] [address] [address] Efrain Zuñiga LYMPH # 1.6 103/ul Normal 1.2-3.8 [facility] Comment on above: Performed By: #### P OCGLUC #### [facility] [address] [place] [address] Dr. Efrain Zuñiga Lymphocytes/100 WBC (Bld) 14.8 % Critically low 20.5-60.0 [facility] Comment on above: Performed By: #### P OCGLUC #### [facility] [address] [address] [address] Efrain Zuñiga MANUAL DIFF REQ NO Normal [facility] Comment on above: Performed By: #### P OCGLUC #### [facility] [address] [address] [address] Efrain Zuñiga MCH (RBC) [Entitic mass] 30.3 pg Normal 26.7-34.0 [facility] Comment on above: Performed By: #### P OCGLUC #### [facility] [address] [address] [address] Efrain Zuñiga MCHC (RBC) [Mass/Vol] 33.0 g/dL Normal 29.9-35.2 [facility] Comment on above: Performed By: #### P OCGLUC #### [facility] [address] [address] [address] Efrain Zuñiga MCV (RBC) [Entitic vol] 91.7 fL Normal 81.0-99.0 [facility] Comment on above: Performed By: #### P OCGLUC #### [facility] [address] [address] [address] Efrain Zuñiga MONO # 0.9 103/ul Critically high 0.3-0.8 [facility] Comment on above: Performed By: #### P OCGLUC #### [facility] [address] [address] [address] Efrain Zuñiga Monocytes/100 WBC (Bld) 7.8 % Normal 1.7-12.0 [facility] Comment on above: Performed By: #### P OCGLUC #### [facility] [address] [address] [address] Efrain Zuñiga NEUT # 8.2 103/ul Critically high 1.4-6.5 [facility] Comment on above: Performed By: #### P OCGLUC #### [facility] [address] [address] [address] Efrain Zuñiga Neutrophils/100 WBC (Bld) 75.3 % Critically high 43.0-75.0 [facility] Comment on above: Performed By: #### P OCGLUC #### [facility] [address] [address] [address] Efrain Zuñiga Platelet mean volume (Bld) [Entitic vol] 11.6 fL Normal 9.5-13.5 [facility] Comment on above: Performed By: #### P OCGLUC #### [facility] [address] [address] [address] Efrain Zuñiga PLT 198 103/ul Normal 150-450 [facility] Comment on above: Performed By: #### P OCGLUC #### [facility] [address] [address] [address] Efrain Zuñiga RBC 4.82 106/ul Normal 4.20-5.40 [facility] Comment on above: Performed By: #### P OCGLUC #### [facility] [address] [address] [address] Efrain Zuñiga WBC 10.9 103/ul Normal 4.0-11.0 [facility] Comment on above: Performed By: #### P OCGLUC #### [facility] [address] [address] [address] Efrain Zuñiga CT ABD/PELV W CONon 04-27-20 CT ABD/PELV W CON EXAMINATION: CT ABD/ PELV W CON HISTORY: UNSPECIFIED ABDOMINAL PAIN , acute COMPARISON: No relevant comparison available. TECHNIQUE: Axial, Coronal, and Sagittal images were created with IV contrast. Dose reduction techniques were achieved by using automated exposure control and/or adjustment of mA and/or kV according to patient size and/or use of iterative reconstruction technique. FINDINGS: LUNG BASES: A few tiny nodules favoring granulomas. No suspicious nodules or infiltrates. LIVER: No enlargement, atrophy, abnormal density, or significant focal lesion. BILIARY: Cholecystectomy. Common bile duct is 15 mm in diameter with gentle tapering; no appreciable stones or mass. PANCREAS: No lesion, fluid collection, ductal dilatation. SPLEEN: No enlargement or focal lesion. ADRENALS: 1.8 x 1.0 x 1.5 cm right adrenal nodule, nonspecific. KIDNEYS: Left renal atrophy and marked cortical thinning. Unremarkable right kidney and ureter. No mass, obstruction, or calcification. BOWEL/MESENTERY: A 2-3 cm segment of proximal-mid ileum is partially drawn into a small periumbilical ventral hernia, with approximately 10 cm of bowel proximal to this point demonstrated mild circumferential wall thickening, with even further proximal bowel fluid-filled and distended up to 6.3 cm. Evidence of prior small bowel surgery and anastomosis. AORTA/VASCULAR: Marked atherosclerotic disease of the distal aorta and iliac arteries without significant aneurysm. RETROPERITONEUM: No mass or adenopathy. LYMPH NODES: No adenopathy. URINARY BLADDER: No visible focal wall thickening, lesion, or calculus. PELVIC ORGANS: No visible mass. Pelvic organs appropriate for patient age. ABDOMINAL WALL: Scarring from midline anterior abdominal wall incision with small periumbilical hernia containing fat and a partial loop of small bowel. BONES: L2 prominent Schmorl's node versus partial superior endplate mild compression fracture. Grade 1 anterior listhesis of L3 on 4. Moderate-marked degenerative disc disease L3-L4 through L5-S1. OTHER: Negative. IMPRESSION: 1. Fluid-filled abnormally distended, and mildly inflamed proximal small bowel suspected to be secondary to partial obstruction/incarceratio n within a tiny paraumbilical hernia. 2. Abnormally dilated common bile duct even considering postcholecystectomy, but no appreciable stone or mass. This is likely chronic. 3. Schmorl's node versus partial superior endplate compression fracture of L2; I suspect Schmorl's node. Electronically authenticated by: LAZARUS SNOW Date: 2022-04-27 08:45 Normal [facility] CULTURE BLOODon 04-27-2022 Microscopic examination of blood, culture Culture Observations: No growth at 5 days. Normal [facility] Comment on above: Performed By: #### R F #### [facility] [address] [address] [address] Efrain Zuñiga Microscopic examination of blood, culture Culture Observations: No growth at 5 days. Normal [facility] Comment on above: Performed By: #### R F #### [facility] [address] [address] [address] Efrain Zuñiga CULTURE URINEon 04-27-2022 CULTURE URINE Culture Observations : No growth Normal [facility] Comment on above: Performed By: #### R F #### [facility] [address] [address] [address] Efrain Zuñiga Covid-19 PCR ([facility])on SARS-CoV-2 (COVID-19) RNA ASHLEIGH+probe Ql (Unsp spec) Not detected Normal NOT DETECTED [facility] Comment on above: Result Comment: When diagnostic testing is negative, the possibility of a false negative should be considered in the context of a patient's recent exposures and the presence of clinical signs and symptoms consistent with SARS-CoV-2. This test is not yet approved or cleared by the [place] FDA. When there are no FDA-approved or cleared tests available, and other criteria are met, FDA can make tests available under an emergency access mechanism called an Emergency Use Authorization (EUA). The EUA for this test is supported by the Counseling Case Manager of Health and Human Service's declaration that circumstances exist to justify the emergency use of in vitro diagnostics for the detection and/or diagnosis of the virus that causes COVID-19. This EUA will remain in effect for the duration of the COVID-19 declaration justifying emergency of IVDs, unless it is terminated or revoked by the FDA (after which the test may no longer be used). Performed By: #### C VDTBH #### [facility] [address] [place] [address] Dr. Efrain Zuñiga LACTATE/LACTIC ACIDon 2021 Lactate [Moles/Vol] 0.7 mmol/L Normal 0.4-1.9 [facility] Comment on above: Performed By: #### L ACT #### [facility] [address] [place] [address] Dr. Efrain Zuñiga LIPASEon 04-27-2022 Lipase [Catalytic activity/Vol] 92.0 U/L Normal 73.0-393.0 [facility] Comment on above: Performed By: #### P OCGLUC #### [facility] [address] [place] [address] Dr. Efrain Zuñiga LIVER PROFILEon 04-27-2022 Albumin [Mass/Vol] 3.2 g/dL Critically low 3.4-5.0 [facility] Comment on above: Performed By: #### P OCGLUC #### [facility] [address] [place] [address] Dr. Efrain Zuñiga Albumin/Globulin [Mass ratio] 0.8 {ratio} Normal [facility] Comment on above: Performed By: #### P OCGLUC #### [facility] [address] [place] [address] Dr. Efrain Zuñiga ALP [Catalytic activity/Vol] 101 U/L Normal 46-116 [facility] Comment on above: Performed By: #### P OCGLUC #### [facility] [address] [place] [address] Dr. Efrain Zuñiga ALT [Catalytic activity/Vol] 24 U/L Normal 14-59 [facility] Comment on above: Performed By: #### P OCGLUC #### [facility] [address] [place] [address] Dr. Efrain Zuñiga AST [Catalytic activity/Vol] 10 U/L Critically low 15-37 [facility] Comment on above: Performed By: #### P OCGLUC #### [facility] [address] [place] [address] Dr. Efrain Zuñiga BILI, CONJUGATED 0.2 mg/dL Normal 0.0-0.2 [facility] Comment on above: Performed By: #### P OCGLUC #### [facility] [address] [address] [address] Efrain Zuñiga Bilirubin [Mass/Vol] 0.9 mg/dL Normal 0.2-1.0 [facility] Comment on above: Performed By: #### P OCGLUC #### [facility] [address] [address] [address] Efrain Zuñiga Globulin (S) [Mass/Vol] 4.0 g/dL Normal [facility] Comment on above: Performed By: #### P OCGLUC #### [facility] [address] [place] [address] Dr. Efrain Zuñiga Protein [Mass/Vol] 7.2 g/dL Normal 6.4-8.2 [facility] Comment on above: Performed By: #### P OCGLUC #### [facility] [address] [address] [address] Efrain Zuñiga POINT OF CARE GLUCOSEon Glucose [Mass/Vol] 142 mg/dL Critically high -106 [facility] Comment on above: Performed By: #### P OCGLUC #### [facility] [address] [place] [address] Dr. Efrain Zuñiga Glucose [Mass/Vol] 261 mg/dL Critically high -106 [facility] Comment on above: Performed By: #### P OCGLUC #### [facility] [address] [place] [address] Dr. Efrain Zuñiga Glucose [Mass/Vol] 305 mg/dL Critically high -106 [facility] Comment on above: Performed By: #### P OCGLUC #### [facility] [address] [place] [address] Dr. Efrain Zuñiga PROF CHEM 8 (BAS METB)on Anion gap [Moles/Vol] 12.9 mmol/L Normal [facility] Comment on above: Performed By: #### P OCGLUC #### [facility] [address] [address] [address] Efrain Zuñiga Calcium [Mass/Vol] 9.2 mg/dL Normal 8.5-10.1 [facility] Comment on above: Performed By: #### P OCGLUC #### [facility] [address] [address] [address] Efrain Zuñiga Chloride [Moles/Vol] 99 mmol/L Normal 98-107 [facility] Comment on above: Performed By: #### P OCGLUC #### [facility] [address] [address] [address] Efrain Zuñiga CO2 [Moles/Vol] 27.0 mmol/L Normal 21.0-32.0 [facility] Comment on above: Performed By: #### P OCGLUC #### [facility] [address] [address] [address] Efrain Zuñiga Creatinine [Mass/Vol] 0.94 mg/dL Normal 0.55-1.02 [facility] Comment on above: Performed By: #### P OCGLUC #### [facility] [address] [address] [address] Efrain Zuñiga EGFR-AF HONDURAN >60 Normal >=60 [facility] Comment on above: Performed By: #### P OCGLUC #### [facility] [address] [address] [address] Efrain Zuñiga EGFR-NON AF HONDURAN >60 Normal >=60 [facility] Comment on above: Performed By: #### P OCGLUC #### [facility] [address] [address] [address] Efrain Zuñiga Glucose [Mass/Vol] 360 mg/dL Critically high 74-106 [facility] Comment on above: Performed By: #### P OCGLUC #### [facility] [address] [address] [address] Efrain Zuñiga Potassium [Moles/Vol] 4.9 mmol/L Normal 3.5-5.1 [facility] Comment on above: Performed By: #### P OCGLUC #### [facility] [address] [address] [address] Efrain Zuñiga Sodium [Moles/Vol] 134 mmol/L Critically low 136-145 [facility] Comment on above: Performed By: #### P OCGLUC #### [facility] [address] [address] [address] Efrain Zuñiga Urea nitrogen [Mass/Vol] 17.0 mg/dL Normal 7.0-18.0 [facility] Comment on above: Performed By: #### P OCGLUC #### [facility] [address] [address] [address] Efrain Zuñiga Urea nitrogen/Creatinine [Mass ratio] 18.1 mg/mg Normal [facility] Comment on above: Performed By: #### P OCGLUC #### [facility] [address] [address] [address] Efrain Zuñiga XR ABD FLAT UP_PA Brodie 04-27 XR ABD FLAT UP_PA CH EXAMINATION: XR ABD FLAT UP_PA CH, 04/27/2022 7:26 PM EDT HISTORY:NAUSEA WITH VOMITING, UNSPECIFIED COMPARISON:04/27/2022 at 6:27 PM TECHNIQUE:Frontal images of the chest and abdomen are submitted. FINDINGS: No abnormally dilated loops of bowel are identified. There is scattered bowel gas and feces throughout the colon to the level the rectum. There is excreted contrast in the urinary bladder. The tip of the nasogastric tube projects over the midline of the upper abdomen. Advancement is recommended by at least 10 cm for more optimal positioning. The cardiomediastinal silhouette is not enlarged. The pulmonary vascularity is within normal limits. Similar airspace disease is present in the left lung base. No free air is under the diaphragm. There is no costophrenic angle blunting. IMPRESSION: Retracted nasogastric tube with the tip in the midline in the upper abdomen. Advancement by at least 10 cm is recommended for more optimal positioning. Electronically authenticated by: MARINE GUERRERO Date: 2022-04-27 20:34 Normal [facility] XR ABD FLAT UP_PA CH EXAMINATION: XR ABD FLAT UP_PA CH HISTORY: NAUSEA WITH VOMITING, UNSPECIFIED , NG tube placement, small bowel obstruction COMPARISON: No relevant comparison available. FINDINGS: LUNGS: Elevated left hemidiaphragm with moderate infiltrates versus atelectasis. MEDIASTINUM: No abnormal widening. BOWEL GAS PATTERN: Nasogastric tube extending into the proximal stomach, but tube is looped with tip in distal esophagus, approximately 7 cm above the gastroesophageal junction. Scattered air-fluid levels within the small bowel without significant dilation. FREE AIR: None. CALCIFICATIONS: None significant. BONES: No fracture or visible bone lesion. OTHER: Negative. IMPRESSION: 1. Nasogastric tube is looped within the stomach with the tip still within the distal esophagus. 2. Mild left basilar infiltrates versus atelectasis. 3. Ileus versus partial small bowel obstruction. Electronically authenticated by: LAZARUS SNOW Date: 2022-04-27 18:37 Normal [facility] Basic Metabolic Panelon 05 Anion gap [Moles/Vol] 11 mmol/L 9 - 17 mmol/L [employer] Calcium [Mass/Vol] 9.1 mg/dL 8.6 - 10. 4 mg/dL [facility] Chloride [Moles/Vol] 97 mmol/L Low 98 - 10 7 mmol/L [employer] CO2 [Moles/Vol] 26 mmol/L 20 - 31 mmol/L [employer] Creatinine [Mass/Vol] 1.04 mg/dL High 0.50 - 0.90 mg/dL [facility] GFR >60 >60 mL/min [facility] GFR Non- 55 mL/min Low >60 [facility] Glucose [Mass/Vol] 441 mg/dL Critically high 70 - 9 9 mg/dL [facility] Interpretation and review of laboratory results Abnormal [facility] Potassium [Moles/Vol] 4.5 mmol/L 3.7 - 5.3 mmol/L [facility] Sodium [Moles/Vol] 134 mmol/L Low 135 - 144 mmol/L [facility] Urea nitrogen (BldV) [Mass/Vol] 20 mg/dL 6 - 20 mg/dL [facility] Urea nitrogen/Creatinine (Bld) [Mass ratio] 19 [facility] - Chemistry and C hemistry - challengeon 03-27-2022 GFR/1.73 sq M.predicted MDRD (S/P/Bld) [Vol rate/Area] [facility] Comment on above: Average GFR for 50-5 9 years old: 93 mL/min/1.73sq m Chronic Kidney Disease: <60 mL/min/1.73sq m Kidney failure: <15 mL/min/1.73sq m eGFR calculated using average adult body mass. Additional eGFR calculator available at: http://www.[employer]/multiple_crcl_2012.htm Stage 1: Some kidney damage normal GFR Stage 2: Mild kidney damage GFR 60-89 Stage 3: Moderate kidney damage GFR 30-59 Stage 4: Severe kidney damage GFR 15-29 Stage 5: Severe kidney damage GFR <15 ESRD - chronic treatment by dialysis or transplant Steve 03-18-2022 ALT [Catalytic activity/Vol] 15 U/L 5 - 33 U/L [facility] Nikos 03-18-2022 AST [Catalytic activity/Vol] 9 U/L <32 [facility] [employer] Basic Metabolic Panelon 02-25 Anion gap [Moles/Vol] 11 mmol/L 9 - 17 mmol/L [facility] Calcium [Mass/Vol] 9.5 mg/dL 8.6 - 10. 4 mg/dL [facility] Chloride [Moles/Vol] 93 mmol/L Low 98 - 10 7 mmol/L [facility] [employer] CO2 [Moles/Vol] 24 mmol/L 20 - 31 mmol/L [facility] Creatinine [Mass/Vol] 0.96 mg/dL High 0.50 - 0.90 mg/dL [facility] [employer] GFR >60 >60 mL/min [facility] GFR Non- >60 >60 mL/min [facility] Glucose [Mass/Vol] 434 mg/dL Critically high 70 - 9 9 mg/dL [facility] Interpretation and review of laboratory results Abnormal [facility] [employer] Potassium [Moles/Vol] 4.5 mmol/L 3.7 - 5.3 mmol/L [facility] Sodium [Moles/Vol] 128 mmol/L Low 135 - 144 mmol/L [facility] Urea nitrogen (BldV) [Mass/Vol] 14 mg/dL 6 - 20 mg/dL [facility] Urea nitrogen/Creatinine (Bld) [Mass ratio] 15 [facility] - Chemistry and C hemistry - challengeon 03-18-2022 GFR/1.73 sq M.predicted MDRD (S/P/Bld) [Vol rate/Area] [facility] Comment on above: Average GFR for 50-5 9 years old: 93 mL/min/1.73sq m Chronic Kidney Disease: <60 mL/min/1.73sq m Kidney failure: <15 mL/min/1.73sq m eGFR calculated using average adult body mass. Additional eGFR calculator available at: http://www.[employer]/multiple_crcl_2012.htm Stage 1: Some kidney damage normal GFR Stage 2: Mild kidney damage GFR 60-89 Stage 3: Moderate kidney damage GFR 30-59 Stage 4: Severe kidney damage GFR 15-29 Stage 5: Severe kidney damage GFR <15 ESRD - chronic treatment by dialysis or transplant Lipid Panelon 03-18-2022 Cholesterol [Mass/Vol] 141 mg/dL <200 [employer] Comment on above: Cholesterol Guidelines: <200 Desirable 200-240 Borderline >240 Undesirable Cholesterol in HDL [Mass/Vol] 31 mg/dL Low >40 [employer] Comment on above: HDL Guidelines: <40 Undesirable 40-59 Borderline >59 Desirable Cholesterol in LDL [Mass/Vol] 60 mg/dL 0 - 130 mg/dL [employer] Comment on above: LDL Guidelines: <100 Desirable 100-129 Near to/above Desirable 130-159 Borderline >159 Undesirable Direct (measured) LDL and calculated LDL are not interchangeable tests. Cholesterol.total/Ch olesterol in HDL [Mass ratio] 4.5 {ratio} <5 [employer] Interpretation and review of laboratory results Abnormal [employer] Triglyceride [Mass/Vol] 249 mg/dL High <150 [facility] Comment on above: Triglyceride Guidelines: <150 Desirable 150-199 Borderline 200-499 High >499 Very high Based on AHA Guidelines for fasting triglyceride, August 2012. [employer] No Panel Informationon 03-18 [facility] Procedure Noteon 11-06-2017 Procedure [id number] Surgery Date: 09/18/2017 Room #: 5AB [id number] Date of : 1965 PROCEDURE NOTEATTENDING: Estela Womack MDASSISTANT: Milan Cornejo M.D.PREOPERATIVE DIAGNOSIS: Necrotic abdominal incisional wound.PROCEDURE PERFORMED: Sharp excisional debridement of incisional abdominalwound.INDICATIO NS: This is a 52-year-old female, [facility], which she underwentexploratory laparotomy, small bowel resection anastomosis. She presents tounit II following ileus and having continued NG tube output. The patient'sileus has resolved. She is passing gas, tolerating regular diet. However,she has a midline laparotomy wound, which was initially treated with woundVAC on. On taking down the wound VAC, it was noted that skin edges werenecrotic and some necrotic signs noted. Decision was made to do a bedsideincision and debridement. Consent was obtained.PROCEDURE IN DETAIL: The patient was lying supine in bed. The area wasprepped with Betadine solution. Approximately 10 mL of 1% lidocaine wasinfiltrated yesy-incisionally. Using an 11 blade, skin and subcutaneoustissue were removed sharply. Good bleeding tissue was noted.Preoperatively, the wound measured 3.5 x 8 x 5 cm deep. Postoperatively,the wound measured 4 cm x 8 cm x 5 cm deep. The wound was then packed withsaline-soaked Kerlix, covered with an ABD and paper tape. Dr. Womack wasavailable for the entirety of the procedure. There were no complicationsand no blood loss.Electronically Signed by:Estela Womack MD 11/07/2017 08:36 A Estela Womack MD I was present for the jaimes and critical portions and I was otherwiseimmediately available to assist. Date Dict: 11/05/2017/04:26 P/MILAGRO [facility] Trans: 11/06/2017 09:44 [id number] Normal [facility] Discharge Summaryon 09-28-20 17 Discharge Summary [id number] Admitted: 09/13/2017 Discharged: 09/18/2017 Date of : 1965 Physician: Estela Womack MD DISCHARGE SUMMARYPRIMARY DISCHARGE DIAGNOSIS: Small bowel obstruction.PROCEDURES PERFORMED: None.HOSPITAL COURSE: This is a 52-year-old female who [facility], status post small bowel resection. Earlier this month,she underwent a neck surgery and then later developed a small-bowelobstruction. She required an exploratory laparotomy, lysis of adhesions,and primary anastomosis due to the small bowel obstruction. She was thentransfer[facility] to [facility] management as she had prolonged ileus.She was transferred with an NG tube in place with continued high output.Upon admission, we kept the patient n.p.o., IV fluids, and NG tube. CTscan uploaded. The patient continued to have copious amounts of NG tubeoutput on hospital day 2, but she had improved leukocytosis from 11.8-15.We continued the NG tube. On hospital day #3, a small-bowel follow-throughwas ordered, which showed contrast passing through the small intestine andlarge intestine. On hospital day #4, the patient is doing well withimprovement of her leukocytosis. An NG tube clamp trial was done. Thepatient was passing gas and bowel movements. An NG tube clamp trial wastaught by the patient. The NG tube was removed. The patient was startedon clear liquid diet. The patient was then started on a regular diet,which she tolerated well. On hospital day #5, the patient underwentbedside incision and debridement of her midline laparotomy wound. Thepatient tolerated the bedside procedure well. Afterwards, a decision madeto discharge the patient. The patient will be discharged home in goodcondition. Her midline laparotomy wound was well healing other than thecentral aspect, which was debrided and good bleeding tissue was observed.The wound will be packed twice daily with wet-to-dry dressings and thepatient will follow up with the initial surgeon.Electronically Signed by:Estela Womack MD 10/03/2017 02:21 P Estela Womack MD I personally saw this patient on the day of the encounter, performed thekey portion(s) of the service and participated in the management andconfirm the resident's documentation. Please note there may be anadditional personal documentation from nv. Date Dict: 09/27/2017/01:59 A/MILAGRO Mannate Trans: 09/27/2017 11:37 P/[id number]_[id number] cc: Cary Santos M.D. [address] [place] [address] [place] [facility] Procedure Noteon 09-19-2017 Procedure Note MR#: [id number] Dorothy Oneal Surgery Date: 09/18/2017 Room #: B [id number] Date of : 1965 PROCEDURE NOTEATTENDING: MARIA ALEJANDRA PulidoREOPERATIVE DIAGNOSIS: Necrotic abdominal incisional wound.PROCEDURE PERFORMED: Incision and debridement of incisional abdominalwound.INDICATIO NS: This is a 52-year-old female, who presented as a transferfrom outside facility after a small bowel obstruction, in which sheunderwent an exploratory laparotomy, small bowel resection and anastomosis.She presented here with prolonged ileus, having continued increasing NGtube output as well as prolonged obstipation. The patient's symptoms haveresolved. She is passing gas, tolerating regular diet. However, she has amidline laparotomy wound, which initially presented with a wound VAC on.After taking down the wound VAC, it was noted that the skin edges werenecrotic and some necrotic fat was noted. Decision was made to do abedside incision and debridement. Consent was obtained, and on September 18,the patient underwent bedside debridement.PROCEDURE IN DETAIL: On September 18, the patient was lying supine in bed.The area was prepped with Betadine solution. Approximately 10 mL of 1%lidocaine was infiltrated yesy-incisionally. Using 11 blade, necrotic skinand soft tissue were sharply removed. Good bleeding devitalized tissue wasnoted. The wound measured approximately 4 cm x 8 cm x 5 cm deep. Thewound was then packed with saline-soaked Kerlix, covered with ABD. Thedressing is to be changed twice daily. Dr. Womack was readily availablefor the entire procedure. No complications. No blood loss.Electronically Signed by:Estela Womack MD 09/20/2017 12:05 P Estela Womack MD I was present for the jaimes and critical portions and I was otherwiseimmediately available to assist. Date Dict: 09/18/2017/09:15 A/MILAGRO Mannate Trans: 09/19/2017 04:12 A/asadoDN_[id number] Normal [facility] BASIC METABOLIC PANELon 10-2 Calcium 8.4 mg/dL Low 8.6-10.3 [facility] Comment on above: Order Comment: No: D o not add to previous draw Performed By: #### 3 6901, 64470, 07278, 23286 ####[facility] [place] [address], [facility] Chloride 103 mmol/L Normal 98-107 [facility] Comment on above: Order Comment: No: D o not add to previous draw Performed By: #### 3 6901, 90031, 61193, 80597 ####[facility] [place] [address], [facility] CO2 24 mmol/L Normal 21-31 [facility] Comment on above: Order Comment: No: D o not add to previous draw Performed By: #### 3 6901, 87108, 55627, 19932 ####[facility] [place] [address], [facility] Creatinine 1.59 mg/dL High 0.60-1.20 [facility] Comment on above: Order Comment: No: D o not add to previous draw Performed By: #### 3 6901, 04224, 89481, 48545 ####[facility] [place] [address], [facility] eGFR (black) 42 ml/min/1.73sq m Abnormal >60 [facility] Comment on above: Order Comment: No: D o not add to previous draw Performed By: #### 3 6901, 00889, 10778, 21784 ####[facility] [place] [address], [facility] eGFR (non-black) 34 ml/min/1.73sq m Abnormal >60 [facility] Comment on above: Order Comment: No: D o not add to previous draw Performed By: #### 3 6901, 99694, 91972, 62562 ####[facility] [place] [address], [facility] Glucose mass conc 201 mg/dL High 70-100 [facility] Comment on above: Order Comment: No: D o not add to previous draw Performed By: #### 3 6901, 17509, 16178, 45681 ####[facility] [place] [address], [facility] Potassium molar conc 3.0 mmol/L Low 3.5-5.1 [facility] Comment on above: Order Comment: No: D o not add to previous draw Performed By: #### 3 6901, 25739, 17599, 30586 ####[facility] Sodium 136 mmol/L Normal 136-145 [facility] Comment on above: Order Comment: No: D o not add to previous draw Performed By: #### 3 6901, 13401, 84546, 36145 ####[facility] Urea nitrogen 9 mg/dL Normal 7-25 [facility] Comment on above: Order Comment: No: D o not add to previous draw Performed By: #### 3 6901, 85490, 27262, 13515 ####[facility] CBC COMPLETE BLOOD COUNTon - Erythrocyte distribution width Auto Ratio (RBC) 14.1 % Normal 11.5-16.9 [facility] Comment on above: Order Comment: No: D o not add to previous draw Performed By: #### 3 6901, 26551, 57315, 99434 ####[facility]3000 [facility].[address] Erythrocytes (RBC) 3.30 mill/mm3 Low 3.50-5.50 [facility] Comment on above: Order Comment: No: D o not add to previous draw Performed By: #### 3 6901, 57287, 75582, 24686 ####[facility]3000 [facility].[address] Hematocrit (HCT) 30.1 % Low 36.0-48.0 [facility] Comment on above: Order Comment: No: D o not add to previous draw Performed By: #### 3 6901, 39815, 24260, 64344 ####[facility] Hemoglobin mass conc (Bld) 9.9 g/dL Low 12.0-15.0 [facility] Comment on above: Order Comment: No: D o not add to previous draw Performed By: #### 3 6901, 69220, 24987, 97925 ####[facility]3000 [facility].[address] MCH 29.8 pg Normal 24.0-32.0 [facility] Comment on above: Order Comment: No: D o not add to previous draw Performed By: #### 3 6901, 05010, 20802, 53516 ####[facility]3000 [facility].[address] MCHC mass conc (RBC) 32.8 g/dL Normal 32.0-36.0 [facility] Comment on above: Order Comment: No: D o not add to previous draw Performed By: #### 3 6901, 54836, 56911, 29695 ####[facility]3000 [facility].[address] MCV 91.0 fL Normal 80.0-100.0 [facility] Comment on above: Order Comment: No: D o not add to previous draw Performed By: #### 3 6901, 98333, 70825, 68358 ####[facility] [place] [address], [facility] PLAT CNT 311 Thou/mm3 Normal 100-400 [facility] Comment on above: Order Comment: No: D o not add to previous draw Performed By: #### 3 6901, 39922, 09179, 96003 ####[facility] [facility] WBC (Leukocytes) 8.8 Thou/mm3 Normal 4.0-10.0 [facility] Comment on above: Order Comment: No: D o not add to previous draw Performed By: #### 3 6901, 29767, 33843, 35500 ####[facility] [facility] POC GLUCOSE LABon 09-18-2017 Glucose mass conc 224 mg/dL High 70-100 [facility] Comment on above: Performed By: #### 3 6901, 27990, 87825, 49827 ####[facility]3000 [facility].[address] Glucose mass conc 171 mg/dL High 70-100 [facility] Comment on above: Performed By: #### 3 6901, 89350, 50916, 09693 ####[facility]3000 [facility].[address] BASIC METABOLIC PANELon 10-2 Calcium 8.3 mg/dL Low 8.6-10.3 [facility] Comment on above: Order Comment: Yes: Add to Previous draw if able Performed By: #### 3 6901, 58847, 84567, 66068 ####[facility] Chloride 106 mmol/L Normal 98-107 [facility] Comment on above: Order Comment: Yes: Add to Previous draw if able Performed By: #### 3 6901, 13287, 59114, 39855 ####[facility] [place] [address], [facility] CO2 25 mmol/L Normal 21-31 [facility] Comment on above: Order Comment: Yes: Add to Previous draw if able Performed By: #### 3 6901, 16020, 36096, 24866 ####[facility] Creatinine 1.67 mg/dL High 0.60-1.20 [facility] Comment on above: Order Comment: Yes: Add to Previous draw if able Performed By: #### 3 6901, 19690, 26880, 71231 ####[facility] eGFR (black) 39 ml/min/1.73sq m Abnormal >60 [facility] Comment on above: Order Comment: Yes: Add to Previous draw if able Performed By: #### 3 6901, 23794, 64432, 73929 ####[facility] [facility] eGFR (non-black) 33 ml/min/1.73sq m Abnormal >60 [facility] Comment on above: Order Comment: Yes: Add to Previous draw if able Performed By: #### 3 6901, 12117, 31334, 90199 ####[facility] Glucose mass conc 159 mg/dL High 70-100 [facility] Comment on above: Order Comment: Yes: Add to Previous draw if able Performed By: #### 3 6901, 36836, 03124, 73619 ####[facility] [place] [address], [facility] Potassium molar conc 3.3 mmol/L Low 3.5-5.1 [facility] Comment on above: Order Comment: Yes: Add to Previous draw if able Performed By: #### 3 6901, 96761, 81656, 67777 ####[facility] [facility] Sodium 140 mmol/L Normal 136-145 [facility] Comment on above: Order Comment: Yes: Add to Previous draw if able Performed By: #### 3 6901, 82008, 98026, 44379 ####[facility]3000 [facility].[address] Urea nitrogen 12 mg/dL Normal 7-25 [facility] Comment on above: Order Comment: Yes: Add to Previous draw if able Performed By: #### 3 6901, 89868, 69776, 46380 ####[facility]3000 [facility].[address] CBC COMPLETE BLOOD COUNTon - Erythrocyte distribution width Auto Ratio (RBC) 14.3 % Normal 11.5-16.9 [facility] Comment on above: Order Comment: Yes: Add to Previous draw if able Performed By: #### 3 6901, 06211, 07289, 19670 ####[facility]3000 [facility].[address] Erythrocytes (RBC) 3.20 mill/mm3 Low 3.50-5.50 [facility] Comment on above: Order Comment: Yes: Add to Previous draw if able Performed By: #### 3 6901, 77330, 94067, 20415 ####[facility]3000 [facility].[address] Hematocrit (HCT) 29.2 % Low 36.0-48.0 [facility] Comment on above: Order Comment: Yes: Add to Previous draw if able Performed By: #### 3 6901, 68133, 41836, 28719 ####[facility] [facility] Hemoglobin mass conc (Bld) 9.6 g/dL Low 12.0-15.0 [facility] Comment on above: Order Comment: Yes: Add to Previous draw if able Performed By: #### 3 6901, 11169, 33924, 23630 ####[facility] MCH 30.0 pg Normal 24.0-32.0 [facility] Comment on above: Order Comment: Yes: Add to Previous draw if able Performed By: #### 3 6901, 94714, 49632, 80921 ####[facility] MCHC mass conc (RBC) 32.9 g/dL Normal 32.0-36.0 [facility] Comment on above: Order Comment: Yes: Add to Previous draw if able Performed By: #### 3 6901, 57148, 42942, 37984 ####[facility] MCV 91.3 fL Normal 80.0-100.0 [facility] Comment on above: Order Comment: Yes: Add to Previous draw if able Performed By: #### 3 6901, 07918, 52490, 02363 ####[facility] [facility] PLAT CNT 315 Thou/mm3 Normal 100-400 [facility] Comment on above: Order Comment: Yes: Add to Previous draw if able Performed By: #### 3 6901, 26441, 83862, 40456 ####[facility] WBC (Leukocytes) 7.8 Thou/mm3 Normal 4.0-10.0 [facility] Comment on above: Order Comment: Yes: Add to Previous draw if able Performed By: #### 3 6901, 51790, 55481, 31475 ####[facility] [id number], [facility] MAGNESIUM BLOODon 09-17-2017 Magnesium 1.6 mg/dL Low 1.9-2.7 [facility] Comment on above: Order Comment: Yes: Add to Previous draw if able Performed By: #### 3 6901, 73208, 63227, 57025 ####[facility] [facility] [place] [address], [facility] POC GLUCOSE LABon 09-17-2017 Glucose mass conc 163 mg/dL High 70-100 [facility] Comment on above: Performed By: #### 3 6901, 29597, 66569, 66606 ####[facility] [facility] [place] [address], [facility] Glucose mass conc 172 mg/dL High 70-100 [facility] Comment on above: Performed By: #### 3 6901, 09235, 45758, 06280 ####[facility] [facility] [place] [address], [facility] Glucose mass conc 174 mg/dL High 70-100 [facility] Comment on above: Performed By: #### 3 6901, 92791, 29446, 01153 ####[facility] [facility] [address], [place] Glucose mass conc 159 mg/dL High 70-100 [facility] Comment on above: Performed By: #### 3 6901, 25148, 64904, 27052 ####[facility] [facility] [place] [address], [place] Glucose mass conc 192 mg/dL High 70-100 [facility] Comment on above: Performed By: #### 3 6901, 75840, 10658, 43855 ####[facility] [place] [address], [place] BASIC METABOLIC PANELon 08-27 Calcium 8.3 mg/dL Low 8.6-10.3 [facility] Comment on above: Order Comment: No: D o not add to previous draw Performed By: #### 5 610, 12140 ####[facility] [place] [address], [facility] Chloride 110 mmol/L High 98-107 [facility] Comment on above: Order Comment: No: D o not add to previous draw Performed By: #### 5 610, 57629 ####[facility] [place] [address], [facility] CO2 21 mmol/L Normal 21-31 [facility] Comment on above: Order Comment: No: D o not add to previous draw Performed By: #### 5 610, 17286 ####[facility] [place] [address], [facility] Creatinine 1.76 mg/dL High 0.60-1.20 [facility] Comment on above: Order Comment: No: D o not add to previous draw Performed By: #### 5 610, 21301 ####[facility] [place] [address], [facility] eGFR (black) 37 ml/min/1.73sq m Abnormal >60 [facility] Comment on above: Order Comment: No: D o not add to previous draw Performed By: #### 5 6100, 30608 ####[facility] [place] [address], [facility] eGFR (non-black) 30 ml/min/1.73sq m Abnormal >60 [facility] Comment on above: Order Comment: No: D o not add to previous draw Performed By: #### 5 610, 25901 ####[facility] [id number], [facility] Glucose mass conc 93 mg/dL Normal 70-100 [facility] Comment on above: Order Comment: No: D o not add to previous draw Performed By: #### 5 610, 56609 ####[facility] Potassium molar conc 3.5 mmol/L Normal 3.5-5.1 [facility] Comment on above: Order Comment: No: D o not add to previous draw Performed By: #### 5 610, 20458 ####[facility] Sodium 148 mmol/L High 136-145 [facility] Comment on above: Order Comment: No: D o not add to previous draw Performed By: #### 5 6100, 87384 ####[facility] Urea nitrogen 17 mg/dL Normal 7-25 [facility] Comment on above: Order Comment: No: D o not add to previous draw Performed By: #### 5 610, 32046 ####[facility] CBC COMPLETE BLOOD COUNTon - Erythrocyte distribution width Auto Ratio (RBC) 13.6 % Normal 11.5-16.9 [facility] Comment on above: Order Comment: No: D o not add to previous draw Performed By: #### 5 610, 23669 ####[facility] Erythrocytes (RBC) 3.16 mill/mm3 Low 3.50-5.50 [facility] Comment on above: Order Comment: No: D o not add to previous draw Performed By: #### 5 610, 01316 ####[facility] Hematocrit (HCT) 28.8 % Low 36.0-48.0 [facility] Comment on above: Order Comment: No: D o not add to previous draw Performed By: #### 5 610, 69237 ####[facility] [place] [address], [facility] Hemoglobin mass conc (Bld) 9.5 g/dL Low 12.0-15.0 [facility] Comment on above: Order Comment: No: D o not add to previous draw Performed By: #### 5 610, 55881 ####[facility] [facility] [place] [address], [facility] MCH 30.1 pg Normal 24.0-32.0 [facility] Comment on above: Order Comment: No: D o not add to previous draw Performed By: #### 5 6100, 85404 ####[facility]3000 [facility].[address] MCHC mass conc (RBC) 33.0 g/dL Normal 32.0-36.0 [facility] Comment on above: Order Comment: No: D o not add to previous draw Performed By: #### 5 6100, 26736 ####[facility]3000 [facility].[address] MCV 91.2 fL Normal 80.0-100.0 [facility] Comment on above: Order Comment: No: D o not add to previous draw Performed By: #### 5 610, 62841 ####[place] [id number] [facility].[address] PLAT CNT 329 Thou/mm3 Normal 100-400 [facility] Comment on above: Order Comment: No: D o not add to previous draw Performed By: #### 5 6100, 64532 ####[facility] [facility] [place] [address], [facility] WBC (Leukocytes) 9.2 Thou/mm3 Normal 4.0-10.0 [facility] Comment on above: Order Comment: No: D o not add to previous draw Performed By: #### 5 610, 39330 ####[facility] [facility] [place] [address], [facility] POC GLUCOSE LABon 09-16-2017 Glucose mass conc 248 mg/dL High 70-100 [facility] Comment on above: Performed By: #### 5 610, 21709 ####[facility] [place] [address], [place] Glucose mass conc 131 mg/dL High 70-100 [facility] Comment on above: Performed By: #### 5 610, 63459 ####[facility] [place] [address], [facility] Glucose mass conc 96 mg/dL Normal 70-100 [facility] Comment on above: Performed By: #### 5 610, 51708 ####[facility] [place] [address], [facility] Glucose mass conc 79 mg/dL Normal 70-100 [facility] Comment on above: Performed By: #### 5 610, 82660 ####[facility] [place] [address], [facility] BASIC METABOLIC PANELon 10-2 Calcium 8.5 mg/dL Low 8.6-10.3 [facility] Comment on above: Order Comment: No: D o not add to previous draw Performed By: #### 5 610, 33705 ####[facility] [place] [address], [facility] Chloride 108 mmol/L High 98-107 [facility] Comment on above: Order Comment: No: D o not add to previous draw Performed By: #### 5 610, 90694 ####[facility] [place] [address], [facility] CO2 22 mmol/L Normal 21-31 [facility] Comment on above: Order Comment: No: D o not add to previous draw Performed By: #### 5 610, 27112 ####[facility] [place] [address], [facility] Creatinine 1.96 mg/dL High 0.60-1.20 [facility] Comment on above: Order Comment: No: D o not add to previous draw Performed By: #### 5 610, 24086 ####[facility] [place] [address], [facility] eGFR (black) 33 ml/min/1.73sq m Abnormal >60 [facility] Comment on above: Order Comment: No: D o not add to previous draw Performed By: #### 5 610, 17718 ####[facility] [place] [address], [facility] eGFR (non-black) 27 ml/min/1.73sq m Abnormal >60 [facility] Comment on above: Order Comment: No: D o not add to previous draw Performed By: #### 5 6100, 59266 ####[facility] [facility] [place] [address], [facility] Glucose mass conc 92 mg/dL Normal 70-100 [facility] Comment on above: Order Comment: No: D o not add to previous draw Performed By: #### 5 610, 73825 ####[facility] [place] [address], [facility] Potassium molar conc 3.8 mmol/L Normal 3.5-5.1 [facility] Comment on above: Order Comment: No: D o not add to previous draw Performed By: #### 5 610, 20028 ####[facility] [place] [address], [place] Sodium 144 mmol/L Normal 136-145 [facility] Comment on above: Order Comment: No: D o not add to previous draw Performed By: #### 5 610, 27859 ####[facility] [place] [address], [place] Urea nitrogen 22 mg/dL Normal 7-25 [facility] Comment on above: Order Comment: No: D o not add to previous draw Performed By: #### 5 610, 32517 ####[facility] [facility] CBC COMPLETE BLOOD COUNTon Erythrocyte distribution width Auto Ratio (RBC) 14.3 % Normal 11.5-16.9 [facility] Comment on above: Order Comment: No: D o not add to previous draw Performed By: #### 5 610, 51919 ####[facility] Erythrocytes (RBC) 3.37 mill/mm3 Low 3.50-5.50 [facility] Comment on above: Order Comment: No: D o not add to previous draw Performed By: #### 5 6100, 11034 ####[facility] [facility] Hematocrit (HCT) 31.1 % Low 36.0-48.0 [facility] Comment on above: Order Comment: No: D o not add to previous draw Performed By: #### 5 6100, 58727 ####[facility] [facility] [place] [address], [facility] Hemoglobin mass conc (Bld) 9.9 g/dL Low 12.0-15.0 [facility] Comment on above: Order Comment: No: D o not add to previous draw Performed By: #### 5 610, 66980 ####[facility] [facility] [place] [address], [facility] MCH 29.5 pg Normal 24.0-32.0 [facility] Comment on above: Order Comment: No: D o not add to previous draw Performed By: #### 5 610, 03537 ####[facility] [place] [address], [facility] MCHC mass conc (RBC) 32.0 g/dL Normal 32.0-36.0 [facility] Comment on above: Order Comment: No: D o not add to previous draw Performed By: #### 5 610, 07447 ####[facility] [place] [address], [facility] MCV 92.4 fL Normal 80.0-100.0 [facility] Comment on above: Order Comment: No: D o not add to previous draw Performed By: #### 5 610, 92215 ####[facility] [place] [address], [facility] PLAT CNT 347 Thou/mm3 Normal 100-400 [facility] Comment on above: Order Comment: No: D o not add to previous draw Performed By: #### 5 610, 77658 ####[facility] [place] [address], [facility] WBC (Leukocytes) 10.7 Thou/mm3 High 4.0-10.0 [facility] Comment on above: Order Comment: No: D o not add to previous draw Performed By: #### 5 610, 97234 ####[facility] [place] [address], [facility] MAGNESIUM BLOODon 09-15-2017 Magnesium 1.9 mg/dL Normal 1.9-2.7 [facility] Comment on above: Order Comment: No: D o not add to previous draw Performed By: #### 5 610, 23011 ####[facility] [place] [address], [facility] PHOSPHORUS BLOODon 7 Phosphate 5.2 mg/dL High 2.5-5.0 [facility] Comment on above: Order Comment: No: D o not add to previous draw Performed By: #### 5 610, 25730 ####[facility] [place] [address], [facility] POC GLUCOSE LABon 09-15-2017 Glucose mass conc 84 mg/dL Normal 70-100 [facility] Comment on above: Performed By: #### 5 6101, 06[address] ####[place] [address], [facility] Glucose mass conc 109 mg/dL High 70-100 [facility] Comment on above: Performed By: #### 5 6101, 17980 ####[address] [address], [facility] Glucose mass conc 97 mg/dL Normal 70-100 [facility] Comment on above: Performed By: #### 5 6101, 92617 ####[address] [address], [facility] Glucose mass conc 88 mg/dL Normal 70-100 [facility] Comment on above: Performed By: #### 5 6101, 85204 ####[address] SMALL BOWELon 09-15-2017 SMALL BOWEL [facility] Jpec[address] [place] [id number] ==Patient Name: DOROTHY ONEAL : 1965Sex: FAge: Race: WhiteMRN: [id number]. Location: [id number] Status: IVisit #: [id number] Date: 09/15/2017 8:40:00 AMCompleted Date: 09/15/2017 01:11 PMRequesting Provider: LIZZ MUKHERJEE Attending Provider: ESTELA WOMACK Report Copy To: Signs & Symptoms: Abdomen Pain GeneralizedHistory: Patient history not availableComments: Other, small bowel obstruction. please do small bowel follow through with water soluableExam: SMALL BOWELAccession #: [id number] =========SMALL BOWEL 09/15/2017 1:11 PM EDT SIGNS AND SYMPTOMS: Abdomen Pain Generalized TECHNOLOGIST COMMENTS: rule out obstruction, 200 ml of omnipaque 350 through feeding tube, 0.1 minutes of fluoro time QUESTION FOR THE RADIOLOGIST: Other, small bowel obstruction. please do small bowel follow through with water soluable CONTRAST: Contrast: OMNIPAQUE 350 (LOCM), 200 milliliter, Nasal COMPARISON: Outside CT abdomen and pelvis September 13, 2017. FINDINGS: NG tube in satisfactory position. Contrast is visualized throughout the small bowel and into the colon without evidence of obstruction. Small bowel transit time of approximately 3 hours. IMPRESSION: Contrast visualized in the colon after approximately 3 hours. No evidence of complete small bowel obstruction. Approved by:Servando Disla on 09/15/2017 1:38 PM EDT. I, Alfredo Feng M.D., have reviewed the images and report and concur with these findings. Electronically signed by:Alfredo Feng M.D.. Transcribed by: [email or web address], User Resident: SERVANDO DISLAElectronically Signed by: ALFREDO FENG @ 09/15/2017 02:05 PMI personally read this/these film(s) with this resident Normal [facility] Comment on above: Order Comment: No: D o not add to previous draw BASIC METABOLIC PANELon 10-2 Calcium 8.6 mg/dL Normal 8.6-10.3 [facility] Comment on above: Order Comment: No: D o not add to previous draw Performed By: #### 5 6101, 11273 ####[facility] [place] [address], [facility] Chloride 107 mmol/L Normal 98-107 [facility] Comment on above: Order Comment: No: D o not add to previous draw Performed By: #### 5 610, 28252 ####[facility] [place] [address], [facility] CO2 21 mmol/L Normal 21-31 [facility] Comment on above: Order Comment: No: D o not add to previous draw Performed By: #### 5 610, 99035 ####[facility] [place] [address], [facility] Creatinine 2.01 mg/dL High 0.60-1.20 [facility] Comment on above: Order Comment: No: D o not add to previous draw Performed By: #### 5 610, 30600 ####[facility] [place] [address], [facility] eGFR (black) 32 ml/min/1.73sq m Abnormal >60 [facility] Comment on above: Order Comment: No: D o not add to previous draw Performed By: #### 5 610, 07486 ####[facility] [facility] eGFR (non-black) 26 ml/min/1.73sq m Abnormal >60 [facility] Comment on above: Order Comment: No: D o not add to previous draw Performed By: #### 5 610, 90042 ####[facility] [place] [address], [facility] Glucose mass conc 106 mg/dL High 70-100 [facility] Comment on above: Order Comment: No: D o not add to previous draw Performed By: #### 5 610, 44441 ####[facility] [place] [address], [facility] Potassium molar conc 4.0 mmol/L Normal 3.5-5.1 [facility] Comment on above: Order Comment: No: D o not add to previous draw Performed By: #### 5 610, 61113 ####[facility] [place] [address], [facility] Sodium 140 mmol/L Normal 136-145 [facility] Comment on above: Order Comment: No: D o not add to previous draw Performed By: #### 5 6100, 08936 ####[facility] [place] [address], [facility] Urea nitrogen 24 mg/dL Normal 7-25 [facility] Comment on above: Order Comment: No: D o not add to previous draw Performed By: #### 5 6100, 16570 ####[facility] CBC COMPLETE BLOOD COUNTon Erythrocyte distribution width Auto Ratio (RBC) 14.3 % Normal 11.5-16.9 [facility] Comment on above: Order Comment: No: D o not add to previous draw Performed By: #### 5 6100, 69959 ####[facility] [facility] Erythrocytes (RBC) 3.77 mill/mm3 Normal 3.50-5.50 [facility] Comment on above: Order Comment: No: D o not add to previous draw Performed By: #### 5 6100, 09675 ####[facility] [place] [address], [facility] Hematocrit (HCT) 34.8 % Low 36.0-48.0 [facility] Comment on above: Order Comment: No: D o not add to previous draw Performed By: #### 5 6100, 33116 ####[facility] [place] [address], [facility] Hemoglobin mass conc (Bld) 11.3 g/dL Low 12.0-15.0 [facility] Comment on above: Order Comment: No: D o not add to previous draw Performed By: #### 5 6100, 86320 ####[facility] [place] [address], [facility] MCH 29.8 pg Normal 24.0-32.0 [facility] Comment on above: Order Comment: No: D o not add to previous draw Performed By: #### 5 610, 08656 ####[facility] [place] [address], [facility] MCHC mass conc (RBC) 32.3 g/dL Normal 32.0-36.0 [facility] Comment on above: Order Comment: No: D o not add to previous draw Performed By: #### 5 610, 23440 ####[facility] [place] [address], [facility] MCV 92.3 fL Normal 80.0-100.0 [facility] Comment on above: Order Comment: No: D o not add to previous draw Performed By: #### 5 610, 61447 ####[facility] [place] [address], [facility] PLAT CNT 387 Thou/mm3 Normal 100-400 [facility] Comment on above: Order Comment: No: D o not add to previous draw Performed By: #### 5 610, 35975 ####[facility] [place] [address], [facility] WBC (Leukocytes) 11.8 Thou/mm3 High 4.0-10.0 [facility] Comment on above: Order Comment: No: D o not add to previous draw Performed By: #### 5 610, 96429 ####[facility] [place] [address], [facility] POC GLUCOSE LABon 09-14-2017 Glucose mass conc 92 mg/dL Normal 70-100 [facility] Comment on above: Performed By: #### 5 610, 57474 ####[facility] [place] [address], [facility] Glucose mass conc 119 mg/dL High 70-100 [facility] Comment on above: Performed By: #### 5 6101, 85821 ####[facility] [place] [address], [facility] Glucose mass conc 107 mg/dL High 70-100 [facility] Comment on above: Performed By: #### 5 6101, 52285 ####[facility] [facility] [place] [address], [facility] Glucose mass conc 93 mg/dL Normal 70-100 [facility] Comment on above: Performed By: #### 8 5499 ####[facility]3000 [facility].[address] AMYLASE BLOODon 09-13-2017 Amylase 45 Units/L Normal 29-103 [facility] Comment on above: Order Comment: No: D o not add to previous draw Performed By: #### 3 6901, 73038, 46748, 55499 ####[facility]3000 [facility].[address] APTTon 09-13-2017 aPTT 34.3 s Normal 25.0-35.0 [facility] Comment on above: Order Comment: No: D o not add to previous draw Result Comment: ALL RESULTS MUST BE INTERPRETED WITH RESPECT TO BLOOD DRAWING ARTIFACTOR DILUTION ERROR OF ANTICOAGULANT AT THE TIME OF SAMPLING.THE APTT SHOULD NOT BE USED TO MONITOR UNFRACTIONATED HEPARIN THERAPY, THIS LABORATORY NO LONGER HAS AN ESTABLISHED THERAPEUTIC RANGE BASEDON THE APTT. IT IS RECOMMENDED THAT THE [facility] - HEPARIN ASSAY (ANTI-XAACTIVITY) BE USED FOR THIS PURPOSE. Performed By: #### 5 6101, 05537 ####[facility] [facility] BASIC METABOLIC PANELon - Calcium 8.7 mg/dL Normal 8.6-10.3 [facility] Comment on above: Order Comment: No: D o not add to previous draw Performed By: #### 3 6901, 96525, 10425, 15334 ####[facility] [place] [address], [facility] Chloride 106 mmol/L Normal 98-107 [facility] Comment on above: Order Comment: No: D o not add to previous draw Performed By: #### 3 6901, 12237, 58824, 45523 ####[facility] [place] [address], [place] CO2 22 mmol/L Normal 21-31 [facility] Comment on above: Order Comment: No: D o not add to previous draw Performed By: #### 3 6901, 10410, 12289, 86935 ####[facility] [place] [address], [facility] Creatinine 2.16 mg/dL High 0.60-1.20 [facility] Comment on above: Order Comment: No: D o not add to previous draw Performed By: #### 3 6901, 80995, 56819, 14586 ####[facility] [place] [address], [facility] eGFR (black) 29 ml/min/1.73sq m Abnormal >60 [facility] Comment on above: Order Comment: No: D o not add to previous draw Performed By: #### 3 6901, 96408, 00699, 31550 ####[facility] [place] [address], [facility] eGFR (non-black) 24 ml/min/1.73sq m Abnormal >60 [facility] Comment on above: Order Comment: No: D o not add to previous draw Performed By: #### 3 6901, 78168, 18961, 95984 ####[facility] [id number], [place] Glucose mass conc 96 mg/dL Normal 70-100 [facility] Comment on above: Order Comment: No: D o not add to previous draw Performed By: #### 3 6901, 64253, 46498, 19880 ####[facility]3000 [facility].[address] Potassium molar conc 4.3 mmol/L Normal 3.5-5.1 [facility] Comment on above: Order Comment: No: D o not add to previous draw Performed By: #### 3 6901, 29026, 34577, 68922 ####[facility] [facility] Sodium 139 mmol/L Normal 136-145 [facility] Comment on above: Order Comment: No: D o not add to previous draw Performed By: #### 3 6901, 50523, 84885, 30839 ####[facility]3000 [facility].[address] Urea nitrogen 25 mg/dL Normal 7-25 [facility] Comment on above: Order Comment: No: D o not add to previous draw Performed By: #### 3 6901, 03023, 61373, 48972 ####[facility]3000 [facility].[address] CBC W/DIFFon 09-13-2017 Basophils Auto #/vol (Bld) 0.5 % Normal 0.0-2.0 [facility] Comment on above: Performed By: #### 5 3 ####[facility]3000 [facility].[address] Eosinophils/100 leukocytes 1.5 % Normal 0.0-5.0 [facility] Comment on above: Performed By: #### 5 3 ####[facility]3000 [facility].[address] Erythrocyte distribution width Auto Ratio (RBC) 14.5 % Normal 11.5-16.9 [facility] Comment on above: Performed By: #### 5 3 ####[facility] [facility] [place] [address], [facility] Erythrocytes (RBC) 3.72 mill/mm3 Normal 3.50-5.50 [facility] Comment on above: Performed By: #### 5 0103 ####[facility] [facility] [place] [address], [facility] Hematocrit (HCT) 34.1 % Low 36.0-48.0 [facility] Comment on above: Performed By: #### 5 0103 ####[facility] [facility] [place] [address], [facility] Hemoglobin mass conc (Bld) 11.3 g/dL Low 12.0-15.0 [facility] Comment on above: Performed By: #### 3 ####[place] [address] [facility] [place] [address], [facility] Lymphocytes/100 leukocytes 7.6 % Low 20.0-40.0 [facility] Comment on above: Performed By: #### 5 0103 ####[facility] MCH 30.4 pg Normal 24.0-32.0 [facility] Comment on above: Performed By: #### 5 3 ####[facility]3000 [facility].[address] MCHC mass conc (RBC) 33.1 g/dL Normal 32.0-36.0 [facility] Comment on above: Performed By: #### 5 0103 ####[facility] [place] [address], [facility] MCV 91.8 fL Normal 80.0-100.0 [facility] Comment on above: Performed By: #### 5 3 ####[facility] [facility] [place] [address], [facility] METHOD Normal RBC Morphology Normal [facility] Comment on above: Performed By: #### 5 0103 ####[facility] [place] [address], [facility] MONOS 6.3 % Normal 2-8 [facility] Comment on above: Performed By: #### 5 0103 ####[facility] [place] [address], [facility] Neutrophils/100 leukocytes 84.1 % High 50-70 [facility] Comment on above: Performed By: #### 5 0103 ####[facility] [place] [address], [facility] PLAT CNT 370 Thou/mm3 Normal 100-400 [facility] Comment on above: Performed By: #### 5 0103 ####[facility] [place] [address], [facility] WBC (Leukocytes) 15.5 Thou/mm3 High 4.0-10.0 [facility] Comment on above: Performed By: #### 5 0103 ####[facility] [facility] [place] [address], [facility] LACTATE BLOODon 09-13-2017 Lactate 0.8 mmol/L Normal .5-2.2 [facility] Comment on above: Order Comment: No: D o not add to previous draw Performed By: #### 1 0054 ####[facility] [place] [address], [facility] LIPASE BLOODon 09-13-2017 Lipase 37 Units/L Normal 11-82 [facility] Comment on above: Order Comment: Yes: Add to Previous draw if able Performed By: #### 3 6911, 07088, 29363, 97902 ####[facility] [place] [address], [facility] LIVER BATTERYon 09-13-2017 Alanine aminotransferase (ALT) 13 U/L Normal 7-52 [facility] Comment on above: Order Comment: No: D o not add to previous draw Performed By: #### 3 6901, 17446, 40305, 02269 ####[facility] [facility] [place] [address], [facility] Albumin 2.5 g/dL Low 3.5-5.7 [facility] Comment on above: Order Comment: No: D o not add to previous draw Performed By: #### 3 6901, 26098, 52573, 15531 ####[facility] [facility] [id number], [facility] ALKALINE PHOSPH 73 IU/L Normal 34-104 [facility] Comment on above: Order Comment: No: D o not add to previous draw Performed By: #### 3 6901, 19102, 10576, 08717 ####[facility] [facility] [place] [address], [facility] Aspartate aminotransferase (AST) 10 U/L Low 13-39 [facility] Comment on above: Order Comment: No: D o not add to previous draw Performed By: #### 3 6901, 56031, 77343, 69381 ####[facility] [facility] [place] [address], [facility] Bilirubin (direct) 0.1 mg/dL Normal 0.0-0.2 [facility] Comment on above: Order Comment: No: D o not add to previous draw Performed By: #### 3 6901, 51164, 82949, 45139 ####[facility] [facility] [place] [address], [facility] Bilirubin (total) 0.4 mg/dL Normal 0.3-1.0 [facility] Comment on above: Order Comment: No: D o not add to previous draw Performed By: #### 3 6901, 59950, 06202, 02407 ####[facility] [id number], [facility] Protein 6.3 g/dL Normal 6.0-8.3 [facility] Comment on above: Order Comment: No: D o not add to previous draw Performed By: #### 3 6901, 29579, 03643, 41397 ####[facility]3000 [facility].[address] POC GLUCOSE LABon 09-13-2017 Glucose mass conc 87 mg/dL Normal 70-100 [facility] Comment on above: Performed By: #### 8 5499 ####[facility]3000 [facility].[address] PROTHROMBIN TIMEon 7 INR Coag RelTime (PPP) 1.19 {INR} High 0.91-1.16 [facility] Comment on above: Order Comment: No: D o not add to previous draw Result Comment: ACCC P RECOMMENDED INR FOR WARFARIN THERAPY CONDITION INRPROPHYLAXIS OF VENOUS THROMBOSIS 2-3(HIGH-RISK SURGERY)TREATMENT OF VENOUS THROMBOSIS 2-3TREATMENT OF PULMONARY EMBOLISM 2-3PREVENTION OF SYSTEMIC EMBOLISM: 2-3 ACUTE MYOCARDIAL INFARCTION TISSUE HEART VALVES VALVULAR HEART DISEASE ATRIAL FIBRILLATION RECURRENT SYSTEMIC EMBOLISMMECHANICAL HEART VALVE 2.5-3.5 FROM: ORAL ANTICOAGULANTS. MECHANISM OF ACTION, CLINICALEFFECTIVENESS, AND OPTIMAL THERAPEUTIC RANGE. [id number]. Performed By: #### 5 6101, 26778 ####[facility]3000 [facility].[address] Prothrombin time (PT) Coag time (PPP) 15.2 s High 12.3-14.8 [facility] Comment on above: Order Comment: No: D o not add to previous draw Result Comment: ALL RESULTS MUST BE INTERPRETED WITH RESPECT TO BLOOD DRAWING ARTIFACTOR DILUTION ERROR OF ANTICOAGULANT AT THE TIME OF SAMPLING. Performed By: #### 5 6101, 80711 ####[facility] Vital Signs Date Time Vital Sign Value Performing Clinician Eugenia thomas 09-01-2022 13:02-0400 Blood Pressure Location [facility] 09-01-2022 13:02-0400 Diastolic blood pressure 70 mm[Hg] [facility] 09-01-2022 13:02-0400 Heart rate 66 /min [facility] 09-01-2022 13:02-0400 Respiratory rate 16 /min [facility] 09-01-2022 13:02-0400 Systolic blood pressure 116 mm[Hg] [facility] 05-15-2022 17:00-0400 Heart rate 92 /min Stv A [employer] [facility] [employer] 05-15-2022 17:00-0400 Respiratory rate 24 /min Stv A [employer] [facility] [employer] [place] 05-15-2022 17:00-0400 SaO2% (BldA) [Mass fraction] 95 % Stv A [employer] [facility] [employer] [place] 05-15-2022 15:45-0400 Diastolic blood pressure 58 mm[Hg] Stv A [employer] [facility] [employer] [place] 05-15-2022 15:45-0400 Systolic blood pressure 97 mm[Hg] Stv A [employer] [facility] [employer] [place] 05-15-2022 09:44-0400 Body height 165.1 cm Stv A [employer] 05-15-2022 09:44-0400 Body mass index (BMI) [Ratio] 33.95 kg/m2 Stv A [employer] 05-15-2022 09:44-0400 Body temperature 97.9 [degF] Stv [facility] 05-15-2022 09:44-0400 Body weight 92.53 kg [facility] Encounters Encounter Date Encounter Type Care Provider Facility Start: 01-25-2024 End: 01-28-2024 [facility] Start: 01-25-2024 End: 01-28-[address] [facility] Start: 01-25-2024 End: 01-27-2024 Subsequent hospital visit by physician Luna Street MD Work Phone: [facility] Nuclear [facility] Comment on above: Arrived Start: 01-24-2024 End: 01-27-[address] [facility] Start: 01-24-2024 End: 01-26-2024 Subsequent hospital visit by physician Luna Street MD Work Phone: [facility] Non-Invasive Cardiology Comment on above: Arrived Start: 12-06-2023 End: 12-06-2023 ambulatory [place] [facility] Start: 12-03-2023 End: 12-04-2023 ambulatory [facility] Start: 11-01-2023 End: 11-02-2023 ambulatory [facility]OS [facility] Start: 10-17-2023 End: 10-24-2023 Evaluation and management of inpatient CARY Quigley [facility] Start: 03-26-2023 End: 03-27-[address] CARY SANTOS . Facility:[facility] Start: 02-21-2023 End: 02-22-[address] CARY SANTOS . Facility:[facility] Start: 02-01-2023 End: 02-02-[address] CARY SANTOS . Facility:[facility] Start: 12-01-2022 End: 12-01-[address] CARY SANTOS . Facility:[facility] Start: 10-26-2022 End: 10-27[facility] Start: 10-09-2022 End: 10-09-2022 ambulatory POPEYE HOYT [facility] Start: 10-04-2022 End: 10-05-2022 ambulatory Nathan BRAMBILA Facility: [facility] Start: 09-01-2022 End: 09-02-2022 ambulatory Nathan R CHAPISL Facility: [facility] Start: 09-01-2022 End: 09-01-2022 Patient encounter procedure Nathan NATIONL [facility] Start: 08-28-2022 End: 08-29-[address] CARY SANTOS . Facility: Start: 08-18-2022 ambulatory [facility] Start: 08-18-2022 ambulatory Nathan R [facility]APISBreanne [facility] Start: 05-15-2022 End: 05-15-2022 Subsequent hospital visit by physician Stbrittani Decision Analyst Rm A STV[facility] Decision Analyst Comment on above: Arrived Start: 04-27-2022 End: 04-28-2022 Evaluation and management of inpatient DR CARY SANTOS . Facility: Start: 03-27-2022 End: 03-27-2022 Subsequent hospital visit by physician Cary Santos MD Work Phone: [facility] Start: 03-18-2022 End: 03-18-2022 Subsequent hospital visit by physician Cary Santos MD Work Phone: [facility] Start: 09-13-2017 End: 09-18-2017 Evaluation and management of inpatient ESTELA WOMACK Facility:[facility] Procedures Date Procedure Procedure Detail Performing Clinician Start: 01-25-2024 Myocardial spect multiple studies Luna Street MD Work Phone: Start: 08-14-2023 History of placement of stent for coronary artery disease H/O heart artery stent Luna Street MD Work Phone: Start: 10-09-2022 Consultation consultation POPEYE KAUFFMAN Start: 05-15-2022 Coagulation time activated Fabrice Ayala MD Work Phone: Start: 05-15-2022 Cardiac catheterization Fabrice Ayala MD Work Phone: Start: 05-15-2022 Chloride [Moles/volume] in Serum or Plasma Fabrice Ayala MD Work Phone: Start: 05-15-2022 CREATININE W/GFR POINT OF CARE Fabrice Ayala MD Work Phone: Start: 05-15-2022 End: 05-15-2022 Gluc bld gluc mntr dev cleared fda spec home use Fabrice Ayala MD Work Phone: Start: 05-15-2022 Potassium [Moles/volume] in Serum or Plasma Fabrice Ayala MD Work Phone: Start: 05-15-2022 Sodium [Moles/volume] in Serum or Plasma Fabrice Ayala MD Work Phone: Start: 03-27-2022 Basic metabolic panel calcium total Fabrice Ayala MD Work Phone: Start: 03-18-2022 Basic metabolic panel calcium total Fabrice Ayala MD Work Phone: Start: 03-18-2022 Lipid panel Fabrice Ayala MD Work Phone: Start: 11-26-2021 Placement of stent in cardiac conduit Nathan BRAMBILA Start: 09-18-2017 EXCISION OF ABD SUBCU/FASCIA, OPEN APPROACH ESTELA WOMACK Start: 11-26-2011 Placement of stent in cardiac conduit Nathan BRAMBILA Start: 11-26-1999 section Nathan BRAMBILA Start: 11-26-1993 section Nathan BRAMBILA Abscess of breast (disorder) Nathan BRAMBILA Amputation of toe Nathan VARGAS Decompression of med shravan nerve Nathan BRAMBILA Large intestine excision Robert BRAMBILA Lumbar spinal fusion Nathan BRAMBILA Repair of incisional hernia Nathan KOSTA Tonsillectomy and adenoidectomy Nathan KOSTA Plan of Treatment Date Care Activity Detail Author Start: 12-03-2024 GFR test (Diabetes, CKD 3-4, OR last GFR 15-59) GFR test (Diabetes, CKD 3-4, OR last GFR 15-59) [facility] Start: 10-18-2024 Hemoglobin A1c measurement A1C test (Diabetic or Prediabetic) [facility] [employer] Start: 01-07-2024 Annual Wellness Visi t (Medicare) Annual Wellness Visit (Medicare) [email or web address] Start: 07-27-2023 COVID-19 Vaccine ( season) COVID-19 Vaccine ( season) [email or web address] Start: 06-26-2023 Influenza vaccination Flu vaccine (# 1) [email or web address] Start: 03-18-2023 Creatinine measurement Creatinine [facility] Start: 03-18-2023 Lipid panel Lipids [facility] Start: 03-18-2023 Potassium [Moles/vol ume] in Serum or Plasma Potassium [facility] Start: 11-08-2022 End: 11-08-2022 Patient encounter procedure 11/08/2022 Office Visit Vascular Surgery Luna Santos MD [address] [place] [address] [address] [place] [id number] [facility] Start: 07-27-2022 Influenza vaccination Flu vacc ine (Season Ended) [facility] Start: 2016 Screening for malign ant neoplasm of breast Breast cancer screen [facility] Start: 2016 Shingles Vaccine (1 of 2) Shingles Vaccine (1 of 2) [facility] Start: 2011 Screening for malign ant neoplasm of colon [facility] Start: 1996 Screening for malign ant neoplasm of cervix [facility] Start: 1987 Screening for malign ant neoplasm of cervix Pap smear [facility] Start: 1985 DTaP/Tdap/Td vaccine (1 - Tdap) DTaP/Tdap/Td vaccine (1 - Tdap) [facility] Start: 1984 Glaucoma screening Diabetic retinal exam [facility] Start: 1984 Hepatitis C screening Hepatitis C sc reen [facility] Start: 1984 Urine screening for protein Diabetic Alb to Cr ratio (uACR) test [facility] Start: 1981 HIV screening HIV screen [facility] Start: 1978 Depression Screen Depression Screen [facility] Start: 1976 Diabetic foot examination Diabetic foot exam [facility] Start: 1976 Lipid panel Lipids [facility] Start: 1972 Pneumococcal 0-64 ye ars Vaccine (1 - PCV) Pneumococcal 0-64 years Vaccine (1 - PCV) [facility] Start: 1966 Hepatitis B vaccine (1 of 3 - 3-dose series) Hepatitis B vaccine (1 of 3 - 3-dose series) [facility] [employer] [place] End: 05-15-2022 Basic metabolic 2000 panel - Serum or Plasma Basic Metabolic Panel Lab Routine One Time for 1 Occurrences starting 05/15/2022 until 05/15/2022 [facility]: Comment on above: One Time for 1 Occur rences starting 05/15/2022 until 05/15/2022 End: 05-15-2022 CBC panel - Blood by Automated count CBC Lab Routine One Time for 1 Occurrences starting 05/15/2022 until 05/15/2022 [facility]: Comment on above: One Time for 1 Occur rences starting 05/15/2022 until 05/15/2022 Oxygen therapy [[facility] Data Set] Initiate Oxygen Therapy Protocol Respiratory Care Routine As Needed until discontinued starting 05/15/2022 [facility]: Comment on above: As Needed until disc ontinued starting 05/15/2022 End: 05-15-2022 POC CHEMISTRY (NA,K,ICA,GLU,CALC HCT/HGB,LACTATE,CREA,CL) POC CHEMISTRY (NA,K,ICA,GLU,CALC HCT/HGB,LACTATE,CREA,CL) Point of Care Testing STAT One Time for 1 Occurrences starting 05/15/2022 until 05/15/2022 RAMY LINDER [employer] Work Phone: Comment on above: One Time for 1 Occur rences starting 05/15/2022 until 05/15/2022 Payers Date Payer Category Payer Medicare [id number] 2023 Unknown [id number] 1966 Unknown [id number] 2.16.8 [id number] 1966 Unknown [id number] 2.16.8 40.1.613681.3.579.2.727 1966 Unknown [id number] 2.16.8 40.1.031127.3.579.2.727 1966 Unknown [id number] 2.16.8 40.1.406435.3.579.2.727 1966 Unknown [id number] 2.16.84 0.1.447369.3.579.2.593 1966 Unknown [id number] 2.16.84 0.1.025100.3.579.2.593 1966 Unknown [id number] 2.16.84 0.1.333774.3.579.2.593 1966 Unknown [id number] 2.16.84 0.1.465797.3.579.2.593 1966 Unknown [id number] 2.16.84 0.1.350346.3.579.2.593 1966 Unknown [id number] 2.16.84 0.1.599331.3.579.2.593 1966 Unknown [id number] 2.16. 840.1.550764.3.579.2.175 1966 Unknown [id number] 2.16. 840.1.817996.3.579.2.175 1966 Unknown [id number] 2.16. 840.1.315446.3.579.2.175 1966 Unknown [id number] 2.16.8 40.1.014783.3.579.2.173 1966 Unknown [id number] 2.16.8 40.1.175593.3.579.2.173 1966 Unknown [id number] 2.16.8 40.1.930522.3.579.2.173 1966 Unknown [id number] 2.16.8 40.1.123022.3.579.2.173 1966 Unknown [id number] 2.16.8 40.1.193831.3.579.2.173 1966 Unknown [id number] 2.16.8 [id number] 1959 Medicaid [id number] 1959 Private Health Insurance [id number] Unknown [id number] Social History Date Type Detail Facility Start: 11-30-2021 End: 12-25-2023 Tobacco smoking status ARIS Smokes tobacco daily [facility] Phone: History of tobacco use Cigarette Smoker [address] Phone: Start: 11-30-2021 End: 01-07-2024 Cigarettes smoked current (pack per day) - Reported 1 [facility] [facility] Phone: Start: 11-30-2021 End: 12-25-2023 Tobacco use and exposure Smokeless tobacco non-user [facility] Phone: Start: 11-30-2021 End: 01-07-2024 Alcohol intake Lifetime non-drinker (finding) [facility] Phone: Start: 1965 Sex Assigned At Not on file [address] Phone: Start: 09-01-2022 Tobacco smoking status Heavy t obacco smoker (finding) [facility] Tobacco smoking status Never [facility] Start: 01-07-2024 Sex Assigned At Female [facility] Start: 10-23-2023 Education 13 [facility] Functional Status Date Assessment Result Facility 09-01-2022 Functional Status N/A [facility] History of Present illness Narrative 01-24-2024 Carmen Still RN - 01/24/2024 8:30 AM EST Note Date & Type Note Facility 01-24-2024 History of Presen t illness Narrative Instructed on objectives and procedure of lexiscan/cardiolite stress test. documented in this encounter [facility] Progress note 10-09-2022 Note Date & Type Note Facility 10-09-2022 Note Neurosurgery Consult Chief Complaint: Back and leg pain. History of Present Illness: Dorothy Faria is a 57 y.o. female who presents in referral from Dr. Santos for evaluation of back and leg pain. She states that her symptoms began in approximately 1999 after lifting an air conditioner. In 2001, she underwent a lumbar fusion procedure by Dr. Wiseman. She was told at that time that she had a pinched nerve and that if her symptoms were to progress she would lose function of her lower extremities. She states that surgery was performed with some type of plastic. Her postoperative course was complicated by an infection, but she states that she did not undergo surgery for removal of hardware during that time. The patient states that she had nearly complete resolution of her symptoms after surgery and did quite well for many years. Approximately 5 years ago, she began to note some discomfort in her low back and states that she had a harder time getting around due to back pain. While the timeline is somewhat cloudy, in the past 2 years she states that she has developed significantly worsened pain in the low back and upper buttock. This pain is interfered with her activities of daily living significantly. She finds it difficult to walk any significant distance due to to back pain, and has been using an electric scooter for longer distances. Her current pain is centered in the low back. It radiates into the bilateral buttocks. She notes numbness involving both legs which seems worse when she sits down. She has a generalized sense of weakness in the legs, but it is difficult to identify any particular muscle group. She also has a history of significant vascular disease and has undergone toe amputation due to peripheral arterial disease. She does not have current follow-up scheduled with the vascular surgeon. She is undergone recent coronary angiography and placement of 3 stents. She is currently on dual antiplatelet agents. The patient is undertaken physical therapy within the last year, which she states did not improve her symptoms. She has tried multiple medications in the course of the last 5 years without a great degree of sustained improvement. She has not seen a pain management doctor. The patient is a current smoker and is diabetic. Problem List: Patient Active Problem List Diagnosis BMI 33.0-33.9,adult Cervical spondylosis Chronic obstructive pulmonary disease (CMS/HCC) Coronary artery stenosis Diabetes (CMS/HCC) History of small bowel obstruction Insomnia Ischemic bowel disease (CMS/HCC) Low back pain syndrome Neoplasm of uncertain behavior of skin of forearm Right hemiplegia (CMS/HCC) Senile solar keratosis Smoker SVT (supraventricular tachycardia) (CMS/HCC) Lumbar radiculopathy Ventral hernia Past Medical History: Past Medical History: Diagnosis Date Back pain COPD (chronic obstructive pulmonary disease) (CMS/HCC) Diabetes (CMS/HCC) Tachycardia Past Surgical History: Past Surgical History: Procedure Laterality Date CERVICAL SPINE SURGERY 2018 artificial disc SECTION, CLASSIC x2 LUMBAR FUSION 2002 L4-5 OTHER SURGICAL HISTORY Heart stent x3 OTHER SURGICAL HISTORY hernia Medications: Current Outpatient Medications: atorvastatin (Lipitor) 80 mg tablet, Take 80 mg by mouth., Disp: , Rfl: budesonide-formoteroL (Symbicort) 160-4.5 mcg/actuation inhaler, , Disp: , Rfl: cholecalciferol (Vitamin D-3) 125 MCG (5000 UT) capsule, , Disp: , Rfl: clopidogrel (Plavix) 75 mg tablet, Take 75 mg by mouth., Disp: , Rfl: DULoxetine (Cymbalta) [address] capsule, Take by mouth., Disp: , Rfl: furosemide (Lasix) 40 mg tablet, Take 40 mg by mouth., Disp: , Rfl: lisinopril 10 mg tablet, Take 10 mg by mouth., Disp: , Rfl: metoprolol tartrate (Lopressor) 25 mg tablet, Take 25 mg by mouth., Disp: , Rfl: NIFEdipine XL (Procardia XL) 30 mg 24 hr tablet, , Disp: , Rfl: pramipexole (Mirapex) 0.5 mg tablet, Take by mouth., Disp: , Rfl: tiZANidine (Zanaflex) 4 mg tablet, Take 8 mg by mouth., Disp: , Rfl: albuterol 90 mcg/actuation inhaler, Inhale 2 puffs., Disp: , Rfl: aspirin 81 mg EC tablet, Take 81 mg by mouth., Disp: , Rfl: insulin asp prt-insulin aspart (NovoLOG Mix 70-30) 100 unit/mL (70-30) injection, Inject under the skin with breakfast and with evening meal., Disp: , Rfl: insulin glargine (Lantus) 100 unit/mL injection, Inject 36 Units under the skin., Disp: , Rfl: insulin glargine (Lantus) 100 unit/mL injection, Inject under the skin at bedtime., Disp: , Rfl: Allergies: Allergies Allergen Reactions Sulfa (Sulfonamide Antibiotics) Social History: Social History Socioeconomic History Marital status: Single Spouse name: Not on file Number of children: Not on file Years of education: Not on file Highest education level: Not on file Occupational History Not on file Tobacco Use Smoking status: Every Day Packs (more content not included)... [facility] Clinical Note 09-01-2022 Note Date & Type Note Facility 09-01-2022 Note Chief Complaint consultation for skin lesion HPI Staff 57 year old female presents on consultation from Dr. Santos for skin lesion left forearm. Reports 6 month history of itchy lesion that is increasing in size. She frequent traumatizes area by picking. This causes area to become painful and bleed. History of Present Illness 57 yo female with CAD, DMII, COPD, referred for skin lesion left forearm; present for 6 months, itchy, scabs over due to picking; no pigmentation change, raises up then sloughs off some; no h/o skin cancer; on baby asa and plavix daily, no NSAID use; smokes daily Review of Systems PHQ Score Initial Depression Screen Score: 0 ROS - Provider Constitutional: no fever, no sweats, no weight loss. Eyes: no glasses, no blurred vision, no visual loss. ENMT: no dentures, no hoarseness, no swallowing difficulties, no hearing loss, no ear infection(s), no nose bleeds. Cardiovascular: normal blood pressure, no chest pain, regular heartbeat, no heart murmur. Respiratory: yes shortness of breath, no cough, no asthma, no wheezing. Gastrointestinal: no nausea, no vomiting, no diarrhea, no constipation, no blood in stool, no change in bowel habits, no abdominal pain, no hepatitis. Genitourinary: no kidney stones, no urine infection, no dysuria. Musculoskeletal: no pain, no weakness. Skin: no changing moles, no rash, yes skin lumps. Neurologic: no seizures, no epilepsy, no headache. Psychiatric: no emotional or psychiatric problem. Heme/Lymph: no bleeding problems, no anemia, no blood clots, no transfusions. Allergy/Immunologic: no swollen lymph nodes/glands, no IV drug abuse. Other: Additional ROS info: Except as noted in the above Review of Systems and in the History of Present Illness, all other systems have been reviewed and are negative or noncontributory. Physical Exam Vitals & Measurements HR: 66(Peripheral) RR: 16 BP: 116/70 HT: 66 in HT: 168.9 cm WT: 95.8 kg WT: 210.76 lb BMI: 33.58 HEENT: normal conjunctiva, sclera clear, no scleral icterus, EOM intact, PERRLA, oral mucosa moist without lesions. Neck: trachea midline, no mass, symmetric, no thyromegaly or nodules, no adenopathy Respiratory: lungs CTA, respirations non labored. Cardiovascular: regular rate and rhythm, no murmur, no pedal edema or varicosities. Lymphatic: no cervical adenopathy, Musculoskeletal: normal gait, digits and nails without infection, nodes, cyanosis, clubbing. Skin: no rashes, no lesions, no ulcers, extensive sun damaged skin upper extremities, solar keratoses; left forearm with 1 cm raised, scaly lesion with central scab, no pigmentation change. Psychiatric/Neuro: oriented to time, place, person, judgement normal, affect appropriate for age, insight intact, no focal deficits. Tests: review of old records completed, _ surgical options, risks, and possible complications with patient. Assessment/Plan 1. Neoplasm of uncertain behavior of skin of forearm (D48.5: Neoplasm of uncertain behavior of skin) plan excisional biopsy under local anesthesia in the office for definitive diagnosis and treatment; informed consent obtained. Follow-up No qualifying data available Problem List/Past Medical History Ongoing BMI 33.0-33.9,adult Cervical spondylosis Chronic obstructive pulmonary disease Coronary artery disease Coronary artery stenosis Diabetes History of small bowel obstruction Insomnia Ischemic bowel disease Low back pain syndrome Lumbar radiculopathy Neoplasm of uncertain behavior of skin of forearm Right hemiplegia Smoker SVT (supraventricular tachycardia) Ventral hernia Historical No qualifying data Procedure/Surgical History Placement of stent in cardiac conduit (2021), Placement of stent in cardiac conduit (2011), section (1999), section (1993), Abscess of breast, Amputation of toe, Carpal tunnel release, Fusion of lumbar spine, Large bowel resection, Repair of incisional hernia, Repair of ventral hernia, Repair of ventral hernia, Tonsillectomy and adenoidectomy. Medications albuterol HFA 90 mcg/inh MDI, 2 puff(s), Inhalation, QID, PRN atorvastatin 80 mg Tab, 80 mg= 1 tab(s), Oral, Daily duloxetine 60 mg Cap-DR, 2 cap(s), Oral, Daily Insulin Aspart FlexPen Lantus Solostar Pen, 30 unit(s), SubCutaneous, BID Lasix 40 mg Tab, 40 mg= 1 tab(s), Oral, Daily lisinopril 10 mg Tab, 10 mg= 1 tab(s), Oral, Daily Metoprolol tartrate 25 mg Tab, 25 mg= 1 tab(s), Oral, BID NIFEdipine 30 mg ER Tab, 30 mg= 1 tab(s), Oral, Bedtime nitroglycerin 0.4 mg sublingual Tab, 0.4 mg= 1 tab(s), SubLingual, q5min, PRN Plavix 75 mg Tab, 75 mg= 1 tab(s), Oral, Daily pramipexole 0.5 mg, 1 tab, Oral, Bedtime Symbicort 160/4.5 inhalation aerosol with adapter, 2 puff(s), Inhalation, BID terbinafine 250 mg oral tablet, 250 mg= 1 tab(s), Oral, Daily tiZANidine 4 mg Tab, 8 mg= 2 tab(s), Oral, Bedtime Vitamin D, 5000 unit(s), Oral, Daily Allergies sulfa drugs (Unknown) Social (more content not included)... [facility] Comment on above: Result Comment: Elec tronically Signed By: KOSTA BRIONES, Nathan Harvey\Date and Time Signed: 09/01/22 13:30 EDT History of Present illness Narrative 05-15-2022 Jen Reid RN - 05/15/2022 5:25 PM Nayan Reid RN - 05/15/2022 3:45 PM Nayan Reid RN - 05/15/2022 12:45 PM Nayan Reid RN - 05/15/2022 9:40 AM EDT Note Date & Type Note Facility 05-15-2022 History of Present illness Narrative All discharge instructions explained to patient and daughter. Emphasis in taking plavix and instructions to make 2 week follow up appointment. Papers signed and patient discharged per wheelchair with daughter and belongings Ambulated to bathroom and in halls. Gait steady.. Received post procedure to [facility] to room 8. Assessment obtained. Restrictions reviewed with patient. Post procedure pathway initiated. Right radial site soft ,Vasc band dry and intact. No hematoma noted. Family at side. Patient without complaints. Patient admitted, consent signed and questions answered. Patient ready for procedure. Call light to reach with side rails up 2 of 2. Bilateral groin hair clipped. Daughter at bedside with patient. History and physical complete. documented in this encounter [facility] Work Phone: Hospital Discharge instructions 05-15-2022 Instructions Note Date & Type Note Facility 05-15-2022 Hospital Discharg e instructions Jen Reid RN - 05/15/2022 Images from the original note were not included. DISCHARGE INSTRUCTIONS / ARM CARE POST CATHERIZATION ENCOURAGE FLUIDS NO STRENUOUS LIFTING WITH AFFECTED ARM FOR 3 DAYS ANYTHING HEAVIER THAN 8 TO 10 POUNDS REMOVE BAND-AID/PRESSURE DRESSING THE FOLLOWING DAY AND DO NOT APPLY ANY FURTHER BAND-AIDS KEEP INCISION CLEAN DRY AND OPEN TO THE AIR / NO HAND LOTION NEAR PUNCTURE SITE WATCH FOR SIGNS OF INFECTION / REDNESS / SWELLING / DRAINAGE / WARMTH / TEMPERATURE GREATER THAN 101 IF BLEEDING OCCURS HOLD MANUAL PRESSURE DIRECTLY OVER SITE (YOU WILL FEEL PULSATION OF ARTERY) AND IF BLEEDING DOES NOT STOP AFTER 2 MINUTES CALL 911 OK TO SHOWER THE NEXT DAY, NO TUB BATHING OR HOT TUBS/SWIMMING FOR 7 DAYS IF AREA BECOMES HARD AND SWOLLEN AND IF YOU ARE AT ALL CONCERNED SEEK HELP IMMEDIATELY SEEK HELP IMMEDIATELY IF AFFECTED ARM BECOMES COLD / NUMB / SEVERE PAIN / NAILBEDS TURN BLUE IF ON METFORMIN / GLUCOPHAGE DO NOT RESTART MEDICATION FOR 48 HOURS PLEASE PRACTICE GOOD HAND WASHING AND INCLUDE PUNCTURE SITE ESPECIALLY AFTER USING THE RESTROOM AVOID USING ALCOHOL BASED HAND SANITIZERS FOR ONE WEEK CALL 911 if you have symptoms including: Drooping facial muscles Changes in vision or speech Difficulty walking or using your limbs Change in sensation to affected leg, including numbness, feeling cold, or change in color Extreme sweating, nausea or vomiting Dizziness or lightheadedness Chest pain Rapid, irregular heartbeat Palpitations Cough, shortness of breath, or difficulty breathing Weakness or fainting If you think you have an emergency, CALL 911 . SEDATION / ANALGESIA INFORMATION / HOME GOING ADVICE You have received the sedation/analgesia medication during your visit Sedation/analgesia is used during short medical procedures under controlled supervision. The medication will produce a strong relaxation. You will be able to hear, speak and follow instructions, but your memory and alertness will be decreased. You will be able to swallow and breathe on your own. During sedation/analgesia your blood pressure, heart and breathing will be watched closely. After the procedure, you may not remember what was said or done. You may have the following effects from the medication. Drowsiness, dizziness, sleepiness or confusion. Difficulty remembering or delayed reaction times. Loss of fine muscle control or difficulty with your balance especially while walking. Difficulty focusing or blurred vision. You may not be aware of slight changes in your behavior and/or your reaction time because of the medication used during the procedure. Therefore you should follow these instructions. Have someone responsible help you with your care. Do not drive for 24 hours. Do not operate equipment for 24 hours (lawnmowers, power tools, kitchen accessories, stove). Do not drink any alcoholic beverages for a minimum of 24 hours. Do not make important personal, legal or business decisions for 24 hours. You may experience dizziness or lightheadedness. Move slowly and carefully, do not make sudden position changes. Drink extra amounts of fluids today. Increase your diet as tolerated (unless you have received specific instructions from your doctor). If you feel nauseated, continue with liquids until the nausea is gone. Notify your physician if you have not urinated within 8 hours after the procedure. Resume your medications unless otherwise instructed. Coronary artery disease (CAD) occurs when plaque builds up in the arteries that bring oxygen-rich blood to your heart. Plaque is a fatty substance made of cholesterol, calcium, and other substances in the blood. This process is called hardening of the arteries, or atherosclerosis. What happens when you have coronary artery disease? Plaque may narrow the coronary arteries. Narrowed arteries cause poor blood flow. This can lead to angina symptoms such as chest pain or discomfort. If blood flow is completely blocked, you could have a heart attack. You can slow CAD and reduce the risk of future problems by making changes in your lifestyle. These include quitting smoking and eating heart-healthy foods. Treatments for CAD, along with changes in your lifestyle, can help you live a longer and healthier life. How can you prevent coronary artery disease? Do not smoke. It may be the best thing you can do to prevent heart disease. If you need help quitting, talk to your doctor about stop-smoking programs and medicines. These can increase your chances of quitting for good. Be active. Get at least 30 minutes of exercise on most days of the week. Walking is a good choice. You also may want to do other activities, such as running, swimming, cycling, or playing tennis or team sports. Eat heart-healthy foods. Eat more fruits and vegetables and less foods that contain saturated and trans fats. Limit alcohol, sodium, and sweets. Stay at a healthy weight. Lose weight if you need to. Manage other health problems such as diabetes, high blood pressure, and high cholesterol. Talk to your doctor about taking a daily aspirin. Manage stress. Stress can hurt your heart. To keep stress low, talk about your problems and feelings. Don't keep your feelings hidden. How is coronary artery disease treated? Your doctor will suggest that you make lifestyle changes. For example, your doctor may ask you to eat healthy foods, quit smoking, lose extra weight, and be more active. You will have to take medicines. Your doctor may suggest a procedure to open narrowed or blocked arteries. This is called angioplasty. Or your doctor may suggest using healthy blood vessels to create detours around narrowed or blocked arteries. This is called bypass surgery. Follow-up care is a jaimes part of your treatment and safety. Be sure to make and go to all appointments, and call your doctor if you are having problems. It's also a good idea to know your test results and keep a list of the medicines you take. Where can you learn more? Go to [email or web address] and sign in to your [employer] account. Enter C643 in the Search Health Information box to learn more about Learning About Coronary Artery Disease (CAD). If you do not have an account, please click on the Sign Up Now link. [x] DISCHARGE INSTRUCTIONS GIVEN WITH 2 WEEK APPT. MADE AND . DOCUMENTED [x] STENT/PCI GUIDELINES GIVEN [x] ASA PRESCRIBED POST PROCEDURE [] WAS A BETA JANNY ORDERED IF YES WAS SCRIPT GIVEN TO PT. [x] IF EF < 45 % WAS AN MARYCARMEN INHIBITOR ORDERED [x] WAS PLAVIX,EFFIENT,BRILINTA, ORDERED IF YES WAS SCRIPT GIVEN TO PT,AND INSTRUCTIONS ON IMPORTANCE OF MED [] DOES PT. NEED 30 & 90 DAY SCRIPTS [x] CONCERNS ON PURCHASE OF ANTIPLATELETS IF YES. SEE PROCEDURE ON PROCESS FOR PT.S TO OBTAIN THESE MEDS [x] IS PT. ON STATINS IF NO WERE STATINS ORDERED AND SCRIPT GIVEN [x] WERE MEDS RECONCILED, WAS Partnered INFORMATION ON MEDS GIVEN TO PT. [x] PRINT DISCHARGE MED LIST CHECK AVS FOR CURRENT MEDS [x] WAS STENT CARD GIVEN TO PT. documented in this encounter [facility] [place] Phone: Evaluation + Plan note Note Date & Type Note Facility Evaluation + Plan note Future Appointments Appointment Date:09/20/2022 03:20:00 PM Scheduled Provider:Nathan BRAMBILA MD Location:[facility] Appointment Type: Procedure 30 General Surgery [facility] course Narrative Note Date & Type Note Facility Hospital course Narrative No data available for this section General [facility] Discharge instructions Note Date & Type Note Facility Hospital Discharge instructions No data available for this section General Surgery [place] Progress note Note Date & Type Note Facility Progress note No data available for this section [facility] Reason for visit Narrative Auth/Cert Note Date & Type Note Facility Reason for visit Narrative Specialty Diagnoses / Procedures Referred By Priscilla cunha Referred To Contact [employer] [address] [place] [address] Referral ID Status Reason Start Date Expiration Date Visits Re quested Visits Authorized [id number] 1 1 [facility] [place] Phone: Summary Purpose Family History No Family History Records FoundNo Family History Records FoundNo Family History Records FoundNo Family History Records FoundNo Family History Records FoundNo Family History Records FoundNo Family History Records Found Advance Directives No Advanced Directives Records FoundDocuments on File Type Date Recorded Patient Project Eng Expl anation ACP-Advance Directive ACP-Power of Clerk Of Scales Documents on File Type Date Recorded Patient Project Eng Expl anation ACP-Advance Directive ACP-Power of Clerk Of Scales Latest Code Status on File Code Status Date Activated Date Inactivated Comments Full Code 05/15/2022 9:19 AM Latest Code Status on File Code Status Date Activated Date Inactivated Comments Full Code 12/06/2023 7:47 AM 12/06/2023 7:03 PM Code Status History Code Status Date Activated Date Inactivated Comments Full Code 10/17/2023 7:01 PM 10/24/2023 7:09 PM Full Code 05/15/2022 9:19 AM 05/16/2022 2:39 AM Additional Source Comments INFORMATION SOURCE (unrecogn ized section and content) DATE CREATED AUTHOR 05/21/2018 [facility] DATE CREATED AUTHOR AUTHOR'S ORGANIZ ATION 08/28/2022 Giraldo Preble [facility] DATE CREATED AUTHOR AUTHOR'S ORGANIZ ATION 10/05/2022 Giraldo Preble [facility] DATE CREATED AUTHOR AUTHOR'S ORGANIZ ATION 10/27/2022 [facility] DATE CREATED AUTHOR AUTHOR'S ORGANIZ ATION 04/06/2023 [facility] DATE CREATED AUTHOR AUTHOR'S ORGANIZ ATION 01/08/2024 [facility] DATE CREATED AUTHOR AUTHOR'S ORGANIZ ATION 01/28/2024 [facility] Care Teams (unrecognized sec tion and content) Dental Hygiene Teacher Relationship Specialty Start Date End Date Cary Santos MD [address] [id number] PCP - General 01/31/16 Dental Hygiene Teacher Relationship Specialty Start Date End Date Cary Santos MD [address] [id number] PCP - General 01/31/16 Dental Hygiene Teacher Relationship Specialty Start Date End Date Cary Santos MD [address] [place] [address] PCP - General 01/31/16 Dental Hygiene Teacher Relationship Specialty Start Date End Date Cary Santos MD [address] [place] [address] PCP - General 01/31/16 Dental Hygiene Teacher Relationship Specialty Start Date End Date Cary Santos MD [address] [place] [address] PCP - General 01/31/16 Dental Hygiene Teacher Relationship Specialty Start Date End Date Cary Santos MD [address] [place] [address] PCP - General 01/31/16 Ordered Prescriptions (unrec ognized section and content) Prescription Sig Dispensed Refills Start Date End Da te clopidogrel (PLAVIX) 75 MG tablet Take 1 tablet by mouth daily 30 tablet 3 05/15/2022 Reason for Visit (unrecogniz ed section and content) Specialty Diagnoses / Procedures Referred By Contac t Referred To Contact Radiology Diagnoses H/O heart artery stent Coronary artery disease of [place] artery of [place] heart with stable angina pectoris (HCC) Z95.5 (ICD-10-CM) - H/O heart artery stent Procedures Nuclear stress test with myocardial perfusion CHG MYOCARDIAL SPECT MULTIPLE STUDIES 24752 - CHG MYOCARDIAL SPECT MULTIPLE STUDIES [address] MD [address] [place] [address] Referral ID Status Reason Start Date Expiration Date Visits Re quested Visits Authorized [id number] Closed 01/01/2024 03/01/2024 3 3 FOR RECORDS PERTAINING TO PATIENTS WHO ARE OR HAVE BEEN ENROLLED IN A CHEMICAL DEPENDENCY/SUBSTANCEABUSE PROGRAM, SOME INFORMATION MAY BE OMITTED. This clinical summary was aggregated from multiple sources. Caution should be exercised in using it in the provision of clinical care. This summary normalizes information from multiple sources, and as a consequence, information in this document may materially change the coding, format and clinical context of patient data. In addition, data may be omitted in some cases. CLINICAL DECISIONS SHOULD BE BASED ON THE PRIMARY CLINICAL RECORDS. [facility]. provides no warranty or guarantee of the accuracy or completeness of information in this document.
[2024-02-07 14:10] LABS: Anion Gap 14.5; BUN Creatinine Ratio 18.2; Calcium 8.5 mg/dL (8.5-10.1); Carbon Dioxide 26.6 mmol/L (21.0-32.0); Chloride 102 mmol/L (98-107); Estimated GFR (African America 37 (>=60); Estimated GFR (Non-African Ame 31 (>=60); Glucose 174 mg/dL (74-106); Potassium 4.1 mmol/L (3.5-5.1); Sodium 139 mmol/L (136-145)
== END 2024-02-07 12:42 | disposition home or self-care (01) ==
LOC: LAB 12:44
PROVIDERS: PCP Family Medicine; Visit Provider Family Medicine
DX: R60.9 Edema, unspecified (principal)
CPT/HCPCS: 36415; 80048

== ENCOUNTER 2024-08-12 07:00 | Outpatient (OUT) | payer MEDICARE, SELFPAY ==
--- OUTSIDE RECORDS SUMMARY | 2024-08-12 07:07 | XMS_ITS | CCD ---
Author Organization [facility] Care Team Providers Care Telephone Sales Representative Name Role Phone ESTELA WOMACK Unavailable Unavailable ESTELA WOMACK Unavailable Unavailable CARY SANTOS Unavailable Unavailable CARY SANTOS Unavailable Unavailable UT Unavailable Unavailable ESTELA WOMACK Unavailable Unavailable Cary Santos MD Primary Care Provider [phone] Nathan BRAMBILA Attending Unavailable Cary Yusuf Referring Unavailabl Cary Carney Primary Care Physician Nathan BRAMBILA Attending Unavailable Cary Yusuf Referring Unavailabl e Nathan BRAMBILA Attending Unavailable Nathan BRAMBILA Attending Unavailable JOSEPH KAUFFMANAIR Referring Unavailable POPEYE KAUFFMAN Attending Unavailable CHETAN ., DR TOWNSEND Admitting Unavailable HOY ., DR TOWNSEND Attending Unavailable HOY ., DR TOWNSEND Consulting Unavailable HOY ., DR TOWNSEND Primary Care Unavailable BROOKLYN, DR MARIA LUISA Michaels Consulting Unavailable HOY [...] HOY ., DR TOWNSEND Primary Care Unavailable HOY ., DR TOWNSEND Admitting Unavailable Lazarus Snow Consulting Unavailable DAVID CAVANAUGH Consulting Unavailable MARINE GUERRERO Consulting Unavailable EMILIANA CURTIS Consulting Unavailable CHETAN ., DR TOWNSEND Admitting Unavailable HOY ., DR TOWNSEND Attending Unavailable HOY ., DR TOWNSEND Consulting Unavailable OSCARY ., DR TOWNSEND Primary Care Unavailable Lazarus Snow Consulting Unavailable CHETAN ., DR TOWNSEND Admitting Unavailable HOY ., DR TOWNSEND Attending Unavailable HOY ., DR TOWNSEND Consulting Unavailable OSCARY ., DR TOWNSEND Primary Care Unavailable Cary Santos MD Primary Care Provider [phone] LUNA MUSA Referring Unavailable LUNA MUSA Admitting Unavailable LUNA MUSA Attending Unavailable HOY, CARY M Referring Unavailable HOY, CARY M Primary Care Unavailable LOSARAH BETH TOBIN Admitting Unavailable AHMAD, SHOWKAT Attending Unavailable PEYMAN, TARIF A Consulting Unavailable JONATHAN, MOHAMMED S Consulting Unavailable EL-ATASSI, ROM Consulting Unavailable EL-ATASSI, ROM Admitting Unavailable EL-ATASSI, ROM Attending Unavailable HOY, CARY M Primary Care Unavailable EL-ATASSI, ROM Referring Unavailable HOY, CARY M Primary Care Unavailable LUNA STREET Attending Unavailable Drew'LUNA WELLS Referring Unavailable HOY, CARY M Primary Care Unavailable Drew'LUNA WELLS Attending Unavailable Drew'LUNA WELLS Referring Unavailable HOY, CARY M Primary Care Unavailable LUNA MUSA Attending Unavailable LUNA MUSA Referring Unavailable HOY, CARY M Primary Care Unavailable EL-ATASSI, ROM Attending Unavailable EL-ATASSI, ROM Referring Unavailable HOY, CARY M Primary Care Unavailable LUNA MUSA Attending Unavailable LUNA MUSA Referring Unavailable HOY, CARY M Primary Care Unavailable HOY, CARY M Referring Unavailable HOY, CARY M Primary Care Unavailable LUNA MUSA Referring Unavailable HOY, CARY M Primary Care Unavailable Drew'LUNA WELLS Attending Unavailable Drew'LUNA WELLS Referring Unavailable HOY, CARY M Primary Care Unavailable Drew'LUNA WELLS Attending Unavailable Drew'LUNA WELLS Referring Unavailable HOY, CARY M Primary Care Unavailable Allergies Allergy Classification Reported Allergen(s) Allergy Type Date of Onset Reaction(s) Facility (4 sources) Sulfonamides (Antibiotic); Translations: [SULFA (SULFONAMIDE ANTIBIOTICS)] Drug allergy (disorder) [address] [facility] Repository (7 sources) Sulfonamides (Antibiotic) Propensity to adverse reactions to drug 2 [employer] (2 sources) Sulfonamides (Antibiotic); Translations: [sulfa drugs] Drug allergy Unknown (qualifier value) [facility] [place] Medications Current Medications Medication Drug Class(es) Dates Sig (Normalized) Sig (Original) [id number] 200 actuat albuterol 0.09 mg/actuat metered dose inhaler (7 sources) beta2-Adrenergic Agonist take 2 puff(s) by [...] mg/ml / simethicone 4 mg/ml oral suspension (3 sources) Start: 10-24-2023 take 30 mL by mouth every six hours as needed aluminum & magnesium hydroxide-simethic one (MAALOX) 200-200-20 MG/5ML SUSP suspension Take 30 mLs by mouth every 6 hours as needed for Indigestion 300 mL 0 10/24/2023 Active apixaban 5 mg oral tablet (4 sources) Factor Xa Inhibitor Start: 02-08-2024 take 1 tablet by mouth twice daily ELIQUIS 5 MG TABS tablet Indications: Atrial flutter, unspecified type (HCC) TAKE 1 TABLET BY MOUTH TWICE A DAY 180 tablet 1 02/08/2024 Active Start: 08-14-2023 take 1 tablet by roshan th twice daily apixaban (ELIQUIS) 5 MG TABS [...] 0 Active atorvastatin 80 mg oral tablet (8 sources) HMG-CoA Reductase Inhibitor Start: atorvastatin (LIPITOR) 80 MG tablet 60 actuat budesonide 0.16 mg/actuat / formoterol fumarate 0.0045 mg/actuat metered dose inhaler (7 sources) Corticosteroid, beta2-Adrenergic Agonist Start: SYMBICORT 160-4.5 MCG/ACT AERO bumetanide 0.5 mg oral tablet (3 sources) Loop Diuretic Start: take 1 tablet by mouth once daily bumetanide (BUMEX) 0.5 MG tablet Take 1 tablet by mouth daily 30 tablet 0 10/24/2023 Active carvedilol 6.25 mg oral tablet (6 sources) alpha-Adrenergic Janny, beta-Adrenergic Janny Start: take 1 tablet by mouth twice daily at mealtime carvedilol (COREG) 6.25 MG tablet Take 1 tablet by mouth 2 times daily (with meals) 60 tablet 3 10/24/2023 Active Start: 11-16-2021 carvedilol (CO REG) 6.25 MG tablet cholecalciferol 0.125 mg oral capsule (6 sources) Vitamin D Start: 11-12-2021 Cholecalciferol (VITAMIN D3) 125 MCG (5000 UT) CAPS clopidogrel 75 mg oral tablet (6 sources) P2Y12 Platelet Inhibitor Start: 09-21-2023 take [...] 05/15/2022 Active dofetilide 0.25 mg oral capsule (4 sources) Antiarrhythmic Start: 10-24-2023 take 1 capsule by mouth every twelve hours dofetilide (TIKOSYN) 250 MCG capsule Take 1 capsule by mouth every 12 hours 60 capsule 3 10/24/2023 Active DULoxetine 60 mg delayed release oral capsule (8 sources) Serotonin and Norepinephrine Reuptake Inhibitor Start: [...] ml insulin aspart, human 100 unt/ml cartridge (4 sources) Insulin Analog insulin aspart (NOVOLOG) 100 UNIT/ML injection cartridge Inject into the skin 3 times daily (before meals) 0 Active insulin glargine 100 unt/ml injectable solution (5 sources) Insulin Analog insulin glargine (LANTUS) 100 [...] Date: 08/25/22 Status: Ordered Start: 11-05-2021 lisinopril (UT INIVIL;ZESTRIL) 10 MG tablet magnesium oxide 400 mg oral tablet (4 sources) take 1 tablet by mouth once [...] Date: 08/25/22 Status: Ordered Start: 11-08-2021 NIFEdipine (UT OCARDIA XL) 30 MG extended release tablet [...] pantoprazole 40 mg delayed release oral tablet (4 sources) Proton Pump Inhibitor Start: 02-22-2024 take 1 tablet by mouth once daily before breakfast pantoprazole (PROTONIX) 40 MG tablet Take 1 tablet by mouth every morning (before breakfast) 90 tablet 3 02/22/2024 Active Start: 10-25-2023 take 1 tablet by roshan th once daily before breakfast pantoprazole (PROTONIX) 40 MG tablet Take 1 tablet by mouth every morning (before breakfast) 30 tablet 3 10/25/2023 Active pioglitazone 30 mg oral tablet (3 sources) Peroxisome Proliferator Receptor alpha Agonist, Peroxisome Proliferator Receptor gamma Agonist, Thiazolidinedione Start: 11-02-2021 pioglitazone (ACTOS) 30 MG tablet microencapsulated potassium chloride 10 meq extended release oral tablet (3 sources) Start: 10-24-2023 potassium chloride (KLOR-CON M) 10 MEQ extended release tablet Take 3 tablets by mouth 2 times daily 180 tablet 0 10/24/2023 Active pramipexole dihydrochloride 0.5 mg oral tablet (8 sources) Nonergot Dopamine Agonist Start: 10-03-2021 pramipexole (MIRAPEX) 0.5 MG tablet SITagliptin 100 mg oral tablet (3 sources) Dipeptidyl Peptidase 4 Inhibitor Start: 09-06-2021 JANUVIA 100 MG tablet 1000 ml sodium chloride 9 mg/ml injection (1 source) Start: 05-15-2022 0.9 % sodium chloride infusion spironolactone 25 mg oral tablet (4 sources) Aldosterone Antagonist Start: 10-25-2023 take 1 [...] source) Start: 08-25-2022 take 5000 [IU] by [facility] once daily Vitamin D 5,000 unit(s), [...] PAROXYSMAL ANXIETY]] Onset: 09-13-2017 Chronic Cardiac dysrhythmias (20 sources) Supraventricular tachycardia; Translations: [Atrial flutter] Onset: 08-14-2023 08-25-2022 Chronic Chronic obstructive pulmonary disease and bronchiectasis (2 sources) Chronic obstructive lung disease; Translations: [Chronic obstructive pulmonary disease, unspecified] Onset: 02-23-2023 08-25-2022 Chronic Congestive heart failure; nonhypertensive (12 sources) Congestive heart failure; Translations: [Heart failure, unspecified] Onset: 10-17-2023 10-18-2023 Chronic Coronary atherosclerosis and other heart disease (11 sources) Atherosclerotic heart disease of [place] coronary artery without angina pectoris; Translations: [Coronary arteriosclerosis] Onset: 09-13-2017 08-25-2022 Chronic Deficiency and other anemia (1 source) Anemia, unspecified; Translations: [ANEMIA UNSPECIFIED] Onset: 02-03-2023 Episodic Diabetes mellitus with complications (5 sources) Type 2 diabetes mellitus with hyperglycemia; Translations: [Type II diabetes mellitus uncontrolled] Onset: 05-02-2022 10-18-2023 Chronic Diabetes mellitus without complication (8 sources) Type 2 diabetes mellitus without complications; Translations: [Diabetes mellitus] Onset: 09-13-2017 08-25-2022 Chronic Diabetes mellitus without complication (1 source) Other abnormal glucose; Translations: [OTHER ABNORMAL GLUCOSE] Onset: 02-03-2023 Episodic Disorders of lipid metabolism (5 sources) Hyperlipidemia, unspecified; Translations: [Mixed hyperlipidemia] Onset: 05-02-2022 08-14-2023 Chronic Essential hypertension (8 sources) Essential (primary) hypertension; Translations: [Essential hypertension] Onset: 09-13-2017 10-18-2023 Chronic Neoplasms of unspecified nature or uncertain behavior (2 sources) Neoplasm of uncertain behavior of skin; Translations: [Neoplasm of uncertain behavior of skin] Onset: 09-01-2022 Episodic Nonspecific chest pain (1 source) Chest pain, unspecified; Translations: [CHEST PAIN UNSPECIFIED] Onset: 02-03-2023 Episodic Occlusion or stenosis of precerebral arteries (6 sources) Occlusion and stenosis of bilateral carotid arteries; Translations: [Bilateral stenosis of carotid arteries] Onset: 04-09-2024 Chronic Other endocrine disorders (2 sources) Hypoglycemia, unspecified; Translations: [Hypoglycemia, unspecified] Onset: 11-01-2023 Chronic Other nutritional; endocrine; and metabolic disorders (1 source) Body mass index 30+ - obesity 09-01-2022 Chronic Other nutritional; endocrine; and metabolic disorders (4 sources) Body mass index 40+ - severely [...] hemiplegia 08-25-2022 Chronic Peripheral and visceral atherosclerosis (5 sources) Vascular insufficiency of intestine; Translations: [Peripheral vascular disease, unspecified] Onset: 08-14-2023 08-25-2022 Chronic Residual codes; unclassified (4 sources) Obstructive sleep apnea syndrome; Translations: [Obstructive [...] te Episodic/Chronic Acute and unspecified renal failure (4 sources) Acute injury of kidney; Translations: [Acute kidney failure, unspecified] Onset: 10-18-2023 10-18-2023 Episodic Conditions associated with dizziness or vertigo (2 sources) Dizziness and giddiness; Translations: [DIZZINESS AND GIDDINESS] Onset: 02-03-2023 Episodic Coronary atherosclerosis and other heart disease (2 sources) Presence of coronary angioplasty implant and graft; Translations: [PRESENCE COR ANGPLSTY IMPLANT AND GRAFT] Onset: 05-02-2022 Episodic Deficiency and other anemia (4 sources) Normocytic normochromic anemia; Translations: [Anemia, unspecified] Onset: 10-18-2023 10-18-2023 Episodic Fluid and electrolyte disorders (5 sources) Hypo-osmolality and hyponatremia; Translations: [Hyponatremia] Onset: 05-02-2022 10-18-2023 Episodic Intestinal obstruction without hernia (4 sources) Ileus, unspecified; Translations: [Partial intestinal obstruction, unspecified as to cause] Onset: 09-13-2017 Episodic Other aftercare (1 source) intermediate (current) use of oral hypoglycemic drugs; Translations: [PRISON USE ORAL HYPOGLYCEMIC DX] Onset: 05-02-2022 Episodic Other aftercare (1 source) Other long-term (current) drug therapy; Translations: [OTH PRISON CURRENT DRUG THERAPY] Onset: 05-02-2022 Episodic Other circulatory disease (4 sources) History of atrial flutter; Translations: [Personal history of other diseases of the circulatory system] Onset: 12-06-2023 12-06-2023 Episodic Other circulatory disease (1 source) Personal history of other diseases of the circulatory system; Translations: [Personal history of other diseases of the circulatory system] Onset: 12-06-2023 Episodic Other connective tissue disease (1 source) Arthrodesis status; Translations: [ARTHRODESIS STATUS] Onset: 05-02-2022 Episodic Other upper respiratory disease (1 source) Nasal congestion; Translations: [NASAL CONGESTION] Onset: 12-03-2022 Episodic Residual codes; unclassified (4 sources) Edema; Translations: [Edema, unspecified] Onset: 08-21-2023 08-21-2023 Episodic Residual codes; unclassified (1 source) Edema, unspecified; Translations: [Edema, unspecified] Onset: 08-21-2023 Episodic Spondylosis; intervertebral disc disorders; other back problems (8 sources) Low back pain; Translations: [Lumbar radiculopathy] Onset: 08-28-2022 08-25-2022 Episodic Unclassified (1 source) CONTACT W/AND (SUSP) EXPOS COVID-19; Translations: [CONTACT W/AND (SUSP) EXPOS COVID-19] Onset: 12-01-2022 Results Test Name Value Interpretation Reference Range Facility Vascular duplex carotid bila teralOrdered By: Abdirizak Dejesus on 05-24-2024 Left bulb EDV 24.1 cm/s [employer] Work Phone: Left bulb PSV 88.7 cm/s [employer] Phone: Left CCA dist EDV 18.0 cm/s [facility] [employer] Work Phone: Left CCA dist PSV 72.3 cm/s [facility] [employer] Work Phone: Left CCA mid EDV 28.92 cm/s [facility] [employer] Work Phone: Left CCA mid PSV 101.61 cm/s [facility] [employer] Work Phone: Left CCA prox EDV 25.7 cm/s [facility] [employer] Work Phone: Left CCA prox PSV 101.6 cm/s [facility] [employer] Work Phone: Left ECA EDV 8.08 cm/s [facility] [employer] Work Phone: Left ECA PSV 141.8 cm/s [facility] [employer] Work Phone: Left ICA dist EDV 30.5 cm/s [facility] [employer] Work Phone: Left ICA dist PSV 95.2 cm/s [facility] [employer] Work Phone: Left ICA mid EDV 23.2 cm/s [facility] [employer] Work Phone: Left ICA mid PSV 68.5 cm/s [facility] [employer] Work Phone: Left ICA prox EDV 17.5 cm/s [facility] [employer] Work Phone: Left ICA prox PSV 92.5 cm/s [facility] [employer] Work Phone: Left ICA/CCA PSV 1.32 no units [facility] [employer] Work Phone: Left vertebral EDV 13.87 cm/s [facility] [employer] Work Phone: Left vertebral PSV 40.9 cm/s [facility] [employer] Work Phone: Right bulb EDV 27.4 cm/s [facility] [employer] [facility] Work Phone: Right bulb PSV 131.9 cm/s [facility] [employer] [facility] Work Phone: Right CCA dist EDV 22.0 cm/s [facility] [employer] Work Phone: Right cca dist PSV 70.3 cm/s [facility] [employer] Work Phone: Right CCA mid EDV 23.34 cm/s [facility] [employer] Work Phone: Right CCA mid PSV 72.90 cm/s [facility] [employer] Work Phone: Right CCA prox EDV 19.4 cm/s [facility] [employer] Work Phone: Right CCA prox PSV 69.0 cm/s [facility] [employer] [employer] Work Phone: Right Dist Outflow EDV 34.6 cm/s [facility] [employer] Work Phone: Right Dist Outflow PSV 146.1 cm/s [facility] [employer] Work Phone: Right ECA EDV 15.57 cm/s [facility] [employer] Work Phone: Right ECA PSV 127.9 cm/s [facility] [employer] Work Phone: Right Graft 1 CCA/ICA STENT [facility] [employer] Work Phone: Right ICA dist EDV 23.2 cm/s [facility] [employer] [employer] Work Phone: Right ICA dist PSV 73.7 cm/s [facility] [employer] [employer] Work Phone: Right ICA mid EDV 19.2 cm/s [facility] [employer] [employer] Work Phone: Right ICA mid PSV 82.2 cm/s [facility] [employer] [employer] Work Phone: Right ICA prox EDV 19.5 cm/s [facility] [employer] Work Phone: Right ICA prox PSV 98.4 cm/s [facility] [employer] Work Phone: Right ICA/CCA PSV 1.9 no units [facility] [employer] Work Phone: Right Inflow Artery EDV 24.5 cm/s [employer] Work Phone: Right Inflow Artery PSV 77.5 cm/s [facility] [employer] Work Phone: Right Mid Outflow EDV 41.7 cm/s [employer] Work Phone: Right Mid Outflow PSV 187.2 cm/s [employer] Work Phone: Right Outflow Vessel EDV 27.6 cm/s [employer] Work Phone: Right Outflow Vessel PSV 127.5 cm/s [employer] Work Phone: Right Prox Outflow EDV 24.5 cm/s [employer] Work Phone: Right Prox Outflow PSV 69.7 cm/s [employer] Work Phone: Right vertebral EDV 16.70 cm/s [facility] [employer] Work Phone: Right vertebral PSV 62.0 cm/s [facility] [employer] Work Phone: [employer] Work Phone: Vascular duplex carotid [facility] 05-24-2024 Mild (<50%) stenosis in the bilateral internal carotid arteries. Normal antegrade flow involving the bilateral vertebral arteries. Right Carotid Right carotid artery stent (CCA extending into the ICA) present, with stent mild stenosis. Common Carotid Artery: Patent. Intimal thickening present. External Carotid Artery: Patent. Vertebral Artery: Flow is antegrade. Left Carotid Common Carotid Artery: Patent. Intimal thickening present. Internal Carotid Artery: Mild (<50%) stenosis. Minimal and heterogeneous plaque. External Carotid Artery: Elevated velocities are suggestive of hemodynamically significant stenosis. Vertebral Artery: Flow is antegrade. [facility] CV CPACS Vascular duplex carotid bila teralon 05-23-2024 Radiology Study observation (narrative) [facility] 30on 04-25-2024 30 The patient is Moderately Stable - Low risk of patient condition declining or worsening The patient's goals for the shift include comfort/rest The clinical goals for the shift include VSS Over the shift, the patient did make progress toward the following goals. Problem: Pain - Adult Goal: Verbalizes/displays adequate comfort level or baseline comfort level Outcome: Progressing Flowsheets (Taken 04/25/2024 0900) Verbalizes/displays adequate comfort level or baseline comfort level: Encourage patient to monitor pain and request assistance Assess pain using appropriate pain scale Administer analgesics based on type and severity of pain and evaluate response Implement non-pharmacological measures as appropriate and evaluate response Consider cultural and social influences on pain and pain management Notify Licensed Independent Practitioner if interventions unsuccessful or patient reports new pain Problem: Safety - Adult Goal: Free from fall injury Outcome: Progressing Problem: Discharge Planning Goal: Discharge to home or other facility with appropriate resources Outcome: Progressing Problem: Chronic Conditions and Co-morbidities Goal: Patient's chronic conditions and co-morbidity symptoms are monitored and maintained or improved Outcome: Progressing Normal [facility] B-TYPE NATRIURETIC PEPTIDEon 04-25-2024 Natriuretic peptide B (Bld) [Mass/Vol] 83 pg/mL Normal 0-[address] [facility] Comment on above: Performed By: #### L [id number] #### [facility] ([facility]) [address] [place] [address] DSon 04-25-2024 DS ---- -------- Attestation signed by Trey Euceda MD at 04/25/2024 1:25 PM I did not personally examine the patient. I discussed the case with the resident/fellow Dr. Mckeon. Teaching Physician's Revisions: none -------- Admission Admitted 04/24/2024 for Carotid stenosis, asymptomatic, bi* Discharge Diagnosis Carotid stenosis, asymptomatic, bilateral Discharge Disposition Home or Self Care () Discharge Medications Your medication list CONTINUE taking these medications Instructions Last Dose Given Next Dose Due albuterol 90 mcg/actuation inhaler aspirin 81 mg EC tablet atorvastatin 80 mg tablet Commonly known as: Lipitor cholecalciferol 125 MCG (5000 UT) capsule Commonly known as: Vitamin D-3 dofetilide 250 mcg capsule Commonly known as: Tikosyn DULoxetine [address] capsule Commonly known as: Cymbalta Eliquis 5 mg tablet Generic drug: apixaban insulin asp prt-insulin aspart 100 unit/mL (70-30) injection Commonly known as: NovoLOG Mix 70-30 insulin glargine 100 unit/mL injection vial Commonly known as: Lantus insulin glargine 100 unit/mL injection vial Commonly known as: Lantus Lasix 40 mg tablet Generic drug: furosemide lisinopril 10 mg tablet magnesium oxide 400 mg tablet Commonly known as: Mag-Ox metoprolol tartrate 25 mg tablet Commonly known as: Lopressor NIFEdipine XL 30 mg 24 hr tablet Commonly known as: Procardia XL pantoprazole 40 mg EC tablet Commonly known as: ProtoNix Plavix 75 mg tablet Generic drug: clopidogrel potassium chloride CR 10 mEq ER tablet Commonly known as: Klor-Con M10 pramipexole 0.5 mg tablet Commonly known as: Mirapex Symbicort 160-4.5 mcg/actuation inhaler Generic drug: budesonide-formoteroL tiZANidine 4 mg tablet Commonly known as: Zanaflex Activity Patient currently has no discharge activity orders Diet Patient currently has no discharge diet orders Allergies Sulfa (sulfonamide antibiotics) Hospital Course 59-year-old female with history of HFpEF, peripheral artery disease was admitted to the hospital, and underwent right common carotid artery stenting for severe symptomatic carotid artery disease the patient underwent successful stent placement, reduction in stenosis from 80% to 30%, she has history of atrial fibrillation discussed with Dr. Musa will need to be started on Eliquis, aspirin and Plavix until seen in the clinic, with plans to discontinue aspirin after patient is evaluated in the clinic patient was discharged home in good condition Pertinent Physical Exam At Time of Discharge Physical Exam Vitals reviewed. HENT: Head: Normocephalic. Nose: Nose normal. Mouth/Throat: Mouth: Mucous membranes are moist. Pharynx: Oropharynx is clear. No oropharyngeal exudate. Eyes: Extraocular Movements: Extraocular movements intact. Pupils: Pupils are equal, round, and reactive to light. Cardiovascular: Rate and Rhythm: Normal rate and regular rhythm. Pulses: Normal pulses. Heart sounds: No murmur heard. Pulmonary: Effort: Pulmonary effort is normal. No respiratory distress. Breath sounds: No wheezing. Abdominal: General: Abdomen is flat. There is no distension. Palpations: Abdomen is soft. Musculoskeletal: General: No swelling or tenderness. Normal range of motion. Cervical back: Normal range of motion. No rigidity. Skin: General: Skin is warm and dry. Capillary Refill: Capillary refill takes less than 2 seconds. Coloration: Skin is not jaundiced or pale. Neurological: General: No focal deficit present. Mental Status: She is alert and oriented to person, place, and time. Psychiatric: Mood and Affect: Mood normal. Behavior: Behavior normal. Lab Results Labs Reviewed POCT GLUCOSE METER UNSOLICITED RESULTS - Abnormal Result Value Glucose POC 204 (*) Narrative: Waived Testing in the ED is performed under the ED CLIA certificate #[id number]. POCT GLUCOSE METER UNSOLICITED RESULTS - Abnormal Glucose POC 230 (*) Narrative: Waived Testing in the ED is performed under the ED CLIA certificate #[id number]. POCT GLUCOSE METER UNSOLICITED RESULTS - Abnormal Glucose POC 129 (*) Narrative: Waived Testing in the ED is performed under the ED CLIA certificate #[id number]. B-TYPE NATRIURETIC PEPTIDE - Normal BNP 83 POCT GLUCOSE METER POCT GLUCOSE METER POCT GLUCOSE METER POCT GLUCOSE METER Nutrition Screen Issues Requiring Follow-Up Follow-up with cardiology clinic with Dr. Musa within 1 month Outpatient Follow-Up No future appointments. Test Results Pending At Discharge Normal [facility] POCT GLUCOSE METER UNSOLICIT ED RESULTSon 04-25-2024 Glucose [Mass/Vol] 129 mg/dL High 70-105 [facility] Comment on above: Order Comment: Waive d Testing in the ED is performed under the ED CLIA certificate #[id number]. Result Comment: [email or web address] Performed By: #### L [id number] #### [facility] ([facility]) [address] [place] [address] 30on 04-24-2024 30 The patient is Moderately Stable - Low risk of patient condition declining or worsening The patient's goals for the shift include comfort/rest The clinical goals for the shift include VSS Problem: Pain - Adult Goal: Verbalizes/displays adequate comfort level or baseline comfort level Outcome: Progressing Flowsheets (Taken 04/24/20242300) Verbalizes/displays adequate comfort level or baseline comfort level: Encourage patient to monitor pain and request assistance Administer analgesics based on type and severity of pain and evaluate response Consider cultural and social influences on pain and pain management Assess pain using appropriate pain scale Implement non-pharmacological measures as appropriate and evaluate response Notify Licensed Independent Practitioner if interventions unsuccessful or patient reports new pain Problem: Safety - Adult Goal: Free from fall injury Outcome: Progressing Flowsheets (Taken 04/24/20242300) Free from fall injury: Assess patient frequently for physical needs [place] fall precautions as indicated by assessment Instruct patient to call for assistance with activity based on assessment Consider OT/PT consult to assist with strengthening/mobility Identify cognitive and physical deficits and behaviors that affect risk of falls Educate patient/family on patient safety, including physical limitations Modify environment to reduce risk of injury Problem: Discharge Planning Goal: Discharge to home or other facility with appropriate resources Outcome: Progressing Flowsheets (Taken 04/24/2024 1800 by Yoselin Diaz RN) Discharge to home or other facility with appropriate resources: Identify barriers to discharge with patient and caregiver Arrange for needed discharge resources and transportation as appropriate Identify discharge learning needs (meds, wound care, etc) Arrange for interpreters to assist at discharge as needed Refer to discharge planning if patient needs post-hospital services based on physician order or complex needs related to functional status, cognitive ability or social support system Problem: Chronic Conditions and Co-morbidities Goal: Patient's chronic conditions and co-morbidity symptoms are monitored and maintained or improved Outcome: Progressing Flowsheets (Taken 04/24/2024 1800 by Yoselin Diaz RN) Care Plan - Patient's Chronic Conditions and Co-Morbidity Symptoms are Monitored and Maintained or Improved: Monitor and assess patient's chronic conditions and comorbid symptoms for stability, deterioration, or improvement Collaborate with multidisciplinary team to address chronic and comorbid conditions and prevent exacerbation or deterioration Update acute care plan with appropriate goals if chronic or comorbid symptoms are exacerbated and prevent overall improvement and discharge Normal [facility] 30 The patient is Moderately Stable - Low risk of patient condition declining or worsening The patient's goals for the shift include comfort and pain control. The clinical goals for the shift include stable hemodynamics and comfort. Over the shift, the patient is making progress towards these goals. Normal [facility] ANESon 04-24-2024 ANES ---- -------- Attestation signed by Luna Musa MD at 04/24/2024 8:29 AM f -------- Patient: Dorothy Faria Procedure Information Date/Time: 04/24/2430 Procedure: Carotid angiogram - arch carotid and stent Location: [facility] 2 [facility] / [facility] (Cath) Providers: Luna Musa MD Clinical information reviewed: Allergies Meds Physical Exam Airway Mallampati: II Cardiovascular Rhythm: regular Rate: normal Dental Pulmonary - normal exam Abdominal - normal exam Anesthesia Plan ASA 3 other (Conscious sedation) intravenous induction Anesthetic plan and risks discussed with patient. Use of blood products discussed with patient who consented to blood products. Plan discussed with attending. Additional Equipment Requests Normal [facility] HPon 04-24-2024 HP ---- -------- Attestation signed by Luna Musa MD at 04/24/2024 8:28 AM g -------- History Of Present Illness Dorothy Faria is a 59 y.o. female with PMH significant for CAD s/p PCI in 2021, DM, HTN, HLD presents today for her scheduled procedure. Patient was recently seen in clinic where she mentioned that she has been feeling fatigued after multiple errands. Legs are swelling more; she usually contacts Dr Santos for med adjustment when that happens. She has gotten disability since last visit. Duplex 03/21/24 TYSON 303/161 ratio 3.5 (significant increase in EDV). Creat 1.4 12/06/23, gfr 44. Still on insulin, plavix, atorva, eliquis. Still smoking 1.5 ppd. Feels weak overall, but no focal sx. A Also had ablation at [facility] Past Medical History She has a past medical history of Back pain, COPD (chronic obstructive pulmonary disease) ([facility]), Diabetes ([facility]), and Tachycardia. Surgical History She has a past surgical history that includes Other surgical history; Lumbar fusion (2002); Cervical spine surgery (2018); section, classic; and Other surgical history. Social History She reports that she has been smoking cigarettes. She has been smoking an average of 1.5 packs per day. She has never used smokeless tobacco. She reports that she does not drink alcohol and does not use drugs. Allergies Sulfa (sulfonamide antibiotics) Medications Medications Prior to Admission Medication Sig Dispense Refill Last Dose albuterol 90 mcg/actuation inhaler Inhale 2 puffs. Past Week apixaban (Eliquis) 5 mg tablet Take 5 mg by mouth in the morning and at bedtime. Past Week aspirin 81 mg EC tablet Take 81 mg by mouth. 04/24/2024 atorvastatin (Lipitor) 80 mg tablet Take 80 mg by mouth. 04/23/2024 budesonide-formoteroL (Symbicort) 160-4.5 mcg/actuation inhaler 04/23/2024 clopidogrel (Plavix) 75 mg tablet Take 75 mg by mouth. 04/23/2024 dofetilide (Tikosyn) 250 mcg capsule Take 250 mcg by mouth in the morning and at bedtime. 04/23/2024 DULoxetine (Cymbalta) [address] capsule Take by mouth. 04/23/2024 insulin asp prt-insulin aspart (NovoLOG Mix 70-30) 100 unit/mL (70-30) injection Inject under the skin with breakfast and with evening meal. 04/23/2024 insulin glargine (Lantus) 100 unit/mL injection Inject 46 Units under the skin in the morning and at bedtime. 04/23/2024 insulin glargine (Lantus) 100 unit/mL injection Inject under the skin at bedtime. 04/23/2024 magnesium oxide (Mag-Ox) 400 mg tablet 400 mg in the morning. 04/23/2024 pantoprazole (ProtoNix) 40 mg EC tablet Take 40 mg by mouth before breakfast. Do not crush, chew, or split. 04/23/2024 potassium chloride CR (Klor-Con M10) 10 mEq ER tablet Take 10 mEq by mouth in the morning and at bedtime. Do not crush or chew. 04/23/2024 pramipexole (Mirapex) 0.5 mg tablet Take by mouth. 04/23/2024 cholecalciferol (Vitamin D-3) 125 MCG (5000 UT) capsule furosemide (Lasix) 40 mg tablet Take 40 mg by mouth. Not Taking lisinopril 10 mg tablet Take 10 mg by mouth. Not Taking metoprolol tartrate (Lopressor) 25 mg tablet Take 25 mg by mouth. Not Taking NIFEdipine XL (Procardia XL) 30 mg 24 hr tablet Not Taking tiZANidine (Zanaflex) 4 mg tablet Take 8 mg by mouth. Not Taking Review of Systems Constitutional: Positive for fatigue. Cardiovascular: Positive for leg swelling. Physical Exam General- no acute distress, oriented HEENT - no xanthelasma, external ears normal Neck- Supple, no thyromegaly Carotids - no carotid bruits Lungs - decreased breath sounds, diffuse rhonchi CV- Regular rate and rythym, no murmurs rubs or gallops Abdomen - Non tender, non distended, no bruits Skin- warm, dry, no skin breakdown or gangrene Extremities - no edema Pulses Right - Radial: 2+ Posterior tibial: absent Dorsalis pedis: absent Pulses Left -Radial: 2+ Posterior tibial: absent Dorsalis pedis: absent Last Recorded Vitals Blood pressure 154/74, pulse (!) 136, resp. rate 16, SpO2 98 %. Relevant Results Assessment/Plan Principal Problem: Carotid stenosis, asymptomatic, bilateral Carotid has worsened by ultrasound criteria. She has vague sx, with no clear focal sx. We will proceed with carotid, arch angiogram and plan to proceed with stenting if needed. Normal [facility] NURSNOTEon 04-24-2024 NURSNOTE Report given to Rasta weller RN from Sara BURNETT Any medications or safety alerts were reviewed. Any pending diagnostics and notifications were also reviewed, as well as any safety concerns or issues, abnormal labs, abnormal imagining, and abnormal assessment findings. Questions were answered. Normal [facility] POCT GLUCOSE METER UNSOLICIT ED RESULTSon 04-24-2024 Glucose [Mass/Vol] 230 mg/dL High 70-105 [facility] Comment on above: Order Comment: Waive d Testing in the ED is performed under the ED CLIA certificate #[id number]. Result Comment: [email or web address] Performed By: #### L [id number] #### [facility] ([facility]) [address] [place] [address] Glucose [Mass/Vol] 204 mg/dL High 70-105 [facility] Comment on above: Order Comment: Waive d Testing in the ED is performed under the ED CLIA certificate #[id number]. Result Comment: [email or web address] Performed By: #### L [id number] #### [facility] ([facility]) [address] [place] [address] Basic Metabolic Profon 04-22 Anion gap [Moles/Vol] 12 mmol/L Normal 9-17 [facility] Comment on above: Performed By: #### C BC, BMP #### [facility] [address] [place] [address] Laser Beam Machine Operator: Maria Luisa Bennett MD BUN/CRE Ratio 17 Normal 9-20 [facility] Comment on above: Performed By: #### C BC, BMP #### [facility] [address] [place], [place] [id number] Laser Beam Machine Operator: Maria Luisa Bennett MD Calcium [Mass/Vol] 8.8 mg/dL Normal 8.6-10.4 [facility] Comment on above: Performed By: #### C BC, BMP #### [facility] [address] [place] [address] Laser Beam Machine Operator: Maria Luisa eBnnett MD Chloride [Moles/Vol] 104 mmol/L Normal 98-107 [facility] Comment on above: Performed By: #### C BC, BMP #### [facility] [address] [place], [place] [address] Laser Beam Machine Operator: Maria Luisa Bennett MD CO2 [Moles/Vol] 24 mmol/L Normal 20-31 [facility] Comment on above: Performed By: #### C BC, BMP #### [facility] [address] [place], [place] [phone] Laser Beam Machine Operator: Maria Luisa Bennett MD Creatinine [Mass/Vol] 1.3 mg/dL High 0.5-0.9 [facility] Comment on above: Performed By: #### C BC, BMP #### [facility] [address] [place] [address] Laser Beam Machine Operator: Maria Luisa Bennett MD GFR/1.73 sq M.predicted among non-blacks MDRD (S/P/Bld) [Vol rate/Area] 48 mL/min/{1.73_m2} Low >60 [facility] Comment on above: Result Comment: These [...] renal tubular secretion. Performed By: #### C BC, BMP #### [facility] [address] [place] [address] Laser Beam Machine Operator: Maria Luisa Bennett MD Glucose [Mass/Vol] 142 mg/dL High 70-99 [facility] Comment on above: Performed By: #### C STEFAN, BMP #### [facility] [address] [place] [address] [address] [place], [place] [id number] Laser Beam Machine Operator: Maria Luisa Bennett MD Potassium [Moles/Vol] 4.3 mmol/L Normal 3.7-5.3 [facility] Comment on above: Performed By: #### C STEFAN, BMP #### [facility] [address] [place] [address] [place] [address] Laser Beam Machine Operator: Maria Luisa Bennett MD Sodium [Moles/Vol] 140 mmol/L Normal 135-144 [facility] Comment on above: Performed By: #### C STEFAN, BMP #### [facility] [address] [place] [address] Laser Beam Machine Operator: Maria Luisa Bennett MD Urea nitrogen [Mass/Vol] 22 mg/dL High 6-20 [facility] Comment on above: Performed By: #### C BC, BMP #### [facility] [address] [place], [place] [phone] Laser Beam Machine Operator: Maria Luisa Bennett MD CBCon 04-22-2024 Erythrocyte distribution width (RBC) [Ratio] 14.6 % High 11.8-14.4 [facility] Comment on above: Performed By: #### C BC, BMP #### [address] [place] [address] Laser Beam Machine Operator: Maria Luisa Bennett MD Hematocrit (Bld) [Volume fraction] 42.6 % Normal 36.3-47.1 [facility] Comment on above: Performed By: #### C BC, BMP #### [address] [place], [place] [address] Laser Beam Machine Operator: Maria Luisa Bennett MD Hemoglobin (Bld) [Mass/Vol] 13.8 g/dL Normal 11.9-15.1 [facility] Comment on above: Performed By: #### C BC, BMP #### [address] [place], [place] [id number] Laser Beam Machine Operator: Maria Luisa Bennett MD MCH (RBC) [Entitic mass] 29.2 pg Normal 25.2-33.5 [facility] Comment on above: Performed By: #### C BC, BMP #### [address] [place], [place] [address] Laser Beam Machine Operator: Maria Luisa Bennett MD MCHC (RBC) [Mass/Vol] 32.4 g/dL Normal 28.4-34.8 [facility] Comment on above: Performed By: #### C BC, BMP #### [address] [place], [place] [address] Laser Beam Machine Operator: Maria Luisa Bennett MD MCV (RBC) [Entitic vol] 90.1 fL Normal 82.6-102.9 [facility] Comment on above: Performed By: #### C BC, BMP #### [address] [place] [place] [address] Laser Beam Machine Operator: Maria Luisa Bennett MD NRBC Automated 0.0 per 100 WBC Normal 0.0 [facility] Comment on above: Performed By: #### C BC, BMP #### [address] [place], [place] [address]83 Laser Beam Machine Operator: Maria Luisa Bennett MD Platelet mean volume (Bld) [Entitic vol] 12.0 fL Normal 8.1-13.5 [facility] Comment on above: Performed By: #### C BC, BMP #### [facility] [address] [place], [place] [id number] Laser Beam Machine Operator: Maria Luisa Bennett MD Platelets (Bld) [#/Vol] 208 10*3/uL Normal 138-453 [facility] Comment on above: Performed By: #### C BC, BMP #### [facility] [address] [place], [place] [address] Laser Beam Machine Operator: Maria Luisa Bennett MD RBC (Bld) [#/Vol] 4.73 10*6/uL Normal 3.95-5.11 [facility] Comment on above: Performed By: #### C BC, BMP #### [facility] [address] [place], [place] [phone] Laser Beam Machine Operator: Maria Luisa Bennett MD WBC (Bld) [#/Vol] 10.7 10*3/uL Normal 3.5-11.3 [facility] Comment on above: Performed By: #### C BC, BMP #### [facility] [address] [place] [address] [place] [place], [place] [address] Laser Beam Machine Operator: Maria Luisa Bennett MD Orders Onlyon 04-15-2024 Orders Only [id number] Sabrina Faria 1965 F Date Provider Department Center 04/15/2024 [facility] [place] [facility] No family history on file Normal [facility] Nuclear stress test with duglas cardial perfusionOrdered By: Lazarus Keys on 01-25-2024 Baseline Diastolic BP 82 mmHg [facility] Phone: Baseline HR 89 bpm [facility] Phone: Baseline Systolic BP 148 mmHg [facility] Work Phone: Nuc Stress EF 71 % [facility] Work Phone: Recovery Stage 1 BP 110/62 mmHg [facility] Work Phone: Recovery Stage 1 Duration 0 min:sec [facility] Work Phone: Recovery Stage 1 HR 98 bpm [facility] Work Phone: Recovery Stage 2 Duration 1 min:sec [facility] Work Phone: Recovery Stage 2 HR 94 bpm [facility] Work Phone: Recovery Stage 3 BP 112/64 mmHg [facility] Work Phone: Recovery Stage 3 Duration 3 min:sec [facility] Work Phone: Recovery Stage 3 HR 93 bpm [facility] Work Phone: Recovery Stage 4 BP 116/68 mmHg [facility] Work Phone: Recovery Stage 4 Duration 5 min:sec [facility] Work Phone: Recovery Stage 4 HR 92 bpm [facility] Work Phone: Stress Diastolic BP 62 mmHg [facility] Work Phone: Stress Peak HR 106 bpm [facility] Work Phone: Stress Percent HR Achieved 65 % [facility] Work Phone: Stress Rate Pressure Product 55723 bpm*mmHg [facility] Work Phone: Stress Systolic BP 110 mmHg [facility] Work Phone: Stress Target HR 162 bpm [facility] Work Phone: TID 1.07 [facility] Work Phone: [facility] Work Phone: Nuclear stress test with duglas [...] stress end diastolic cavity size is normal. [facility] CV RPACS STRESS Nuclear stress test with duglas cardial perfusionon 01-24-2024 Radiology Study observation (narrative) [facility] CBC with Diffon 12-06-2023 Abs. Basophil 0.08 k/uL Normal 0.00-0.20 [facility] Comment on above: Performed By: #### C P, TSHX, DIGC, MG #### [email or web address] [address] [place] [address] Laser Beam Machine Operator: Haja Franz MD Abs.Imm.Granulocyte 0.10 k/uL Normal 0.00-0.30 [facility] Comment on above: Performed By: #### C P, TSHX, DIGC, MG #### [employer] [address] [place] [address] Laser Beam Machine Operator: Haja Franz MD Abs.Neutrophil (Seg) 9.77 k/uL High 1.50-8.10 [facility] Comment on above: Performed By: #### C P, TSHX, DIGC, MG #### [employer] [facility] [place] [address] Laser Beam Machine Operator: Haja Franz MD Basophils/100 WBC (Bld) 1 % Normal 0-2 [facility] Comment on above: Performed By: #### C P, TSHX, DIGC, MG #### [employer] [address] [place] [address] Laser Beam Machine Operator: Haja Franz MD Eosinophils (Bld) [#/Vol] 0.14 10*3/uL Normal 0.00-0.44 [facility] Comment on above: Performed By: #### C P, TSHX, DIGC, MG #### [address] [address] Laser Beam Machine Operator: Haja Franz MD Eosinophils/100 WBC (Bld) 1 % Normal 1-4 [facility] Comment on above: Performed By: #### C P, TSHX, DIGC, MG #### [facility] [employer] [address] [place] [address] Laser Beam Machine Operator: Haja Franz MD Erythrocyte distribution width (RBC) [Ratio] 16.6 % High 11.8-14.4 [facility] Comment on above: Performed By: #### C P, TSHX, DIGC, MG #### [address] [address] Laser Beam Machine Operator: Haja Franz MD Hematocrit (Bld) [Volume fraction] 42.4 % Normal 36.3-47.1 [facility] Comment on above: Performed By: #### C P, TSHX, DIGC, MG #### [facility] [address] [place] [address] Laser Beam Machine Operator: Haja Franz MD Hemoglobin (Bld) [Mass/Vol] 13.3 g/dL Normal 11.9-15.1 [facility] Comment on above: Performed By: #### C P, TSHX, DIGC, MG #### [facility] [address] [place] [address] Laser Beam Machine Operator: Haja Franz MD Immature granulocytes/100 WBC (Bld) 1 % High 0 [facility] Comment on above: Performed By: #### C P, TSHX, DIGC, MG #### [facility] [address] [place] [address] Laser Beam Machine Operator: Haja Franz MD Lymphocytes (Bld) [#/Vol] 1.80 10*3/uL Normal 1.10-3.70 [facility] Comment on above: Performed By: #### C P, TSHX, DIGC, MG #### [address] [address] Laser Beam Machine Operator: Haja Franz MD Lymphocytes/100 WBC (Bld) 14 % Low 24-43 [facility] Comment on above: Performed By: #### C P, TSHX, DIGC, MG #### [address] [address] Laser Beam Machine Operator: Haja Franz MD MCH (RBC) [Entitic mass] 28.0 pg Normal 25.2-33.5 [facility] Comment on above: Performed By: #### C P, TSHX, DIGC, MG #### [address] [address] Laser Beam Machine Operator: Haja Franz MD MCHC (RBC) [Mass/Vol] 31.4 g/dL Normal 28.4-34.8 [facility] Comment on above: Performed By: #### C P, TSHX, DIGC, MG #### [address] [address] Laser Beam Machine Operator: Haja Franz MD MCV (RBC) [Entitic vol] 89.3 fL Normal 82.6-102.9 [facility] Comment on above: Performed By: #### C P, TSHX, DIGC, MG #### [address] [address] Laser Beam Machine Operator: Haja Franz MD Monocytes (Bld) [#/Vol] 0.82 10*3/uL Normal 0.10-1.20 [facility] Comment on above: Performed By: #### C P, TSHX, DIGC, MG #### [address] [address] Laser Beam Machine Operator: Haja Franz MD Monocytes/100 WBC (Bld) 7 % Normal 3-12 [facility] Comment on above: Performed By: #### C P, TSHX, DIGC, MG #### [address] [address] Laser Beam Machine Operator: Haja Franz MD Neutrophil (Seg) 76 % High 36-65 [facility] Comment on above: Performed By: #### C P, TSHX, DIGC, MG #### [address] [address] Laser Beam Machine Operator: Haja Franz MD NRBC Automated 0.0 per 100 WBC Normal 0.0 [facility] Comment on above: Performed By: #### C P, TSHX, DIGC, MG #### [address] [address] Laser Beam Machine Operator: Haja Franz MD Platelet mean volume (Bld) [Entitic vol] 11.5 fL Normal 8.1-13.5 [facility] Comment on above: Performed By: #### C P, TSHX, DIGC, MG #### [address] [address] Laser Beam Machine Operator: Haja Franz MD Platelets (Bld) [#/Vol] 210 10*3/uL Normal 138-453 [facility] Comment on above: Performed By: #### C P, TSHX, DIGC, MG #### [address] [address] Laser Beam Machine Operator: Haja Franz MD RBC (Bld) [#/Vol] 4.75 10*6/uL Normal 3.95-5.11 [facility] Comment on above: Performed By: #### C P, TSHX, DIGC, MG #### [address] [place] [address] Laser Beam Machine Operator: Haja Franz MD RBC morphology finding Nom (Bld) ANISOCYTOSIS PRESENT Normal [facility] Comment on above: Performed By: #### C P, TSHX, DIGC, MG #### [address] [address] Laser Beam Machine Operator: Haja Franz MD WBC (Bld) [#/Vol] 12.7 10*3/uL High 3.5-11.3 [facility] Comment on above: Performed By: #### C P, TSHX, DIGC, MG #### [address] [address] Laser Beam Machine Operator: Haja Franz MD Basic Metabolic Profon 12-03 Anion gap [Moles/Vol] 10 mmol/L Normal 9-17 [facility] Comment on above: Performed By: #### B MP, CDP #### [facility] [address] [place] [address] Laser Beam Machine Operator: Haja Franz MD Calcium [Mass/Vol] 8.9 mg/dL Normal 8.6-10.4 [facility] Comment on above: Performed By: #### B MP, CDP #### [address] [address] Laser Beam Machine Operator: Haja Franz MD Chloride [Moles/Vol] 103 mmol/L Normal 98-107 [facility] Comment on above: Performed By: #### B MP, CDP #### [facility] [address] [place] [address] Laser Beam Machine Operator: Haja Franz MD CO2 [Moles/Vol] 24 mmol/L Normal 20-31 [facility] Comment on above: Performed By: #### B MP, CDP #### [facility] [address] [place] [address] Laser Beam Machine Operator: Haja Franz MD Creatinine [Mass/Vol] 1.4 mg/dL High 0.5-0.9 [facility] Comment on above: Performed By: #### B LEONCIO, CDP #### [facility] [address] [place] [address] Laser Beam Machine Operator: Haja Franz MD GFR/1.73 sq M.predicted among non-blacks MDRD (S/P/Bld) [Vol rate/Area] 44 mL/min/{1.73_m2} Low >60 [facility] Comment on above: Result Comment: These results [...] renal tubular secretion. Performed By: #### B LEONCIO, CDP #### [facility] [address] [place] [address] [employer] Machine Operator: Haja Franz MD Glucose [Mass/Vol] 156 mg/dL High 70-99 [facility] Comment on above: Performed By: #### B LEONCIO, CDP #### [facility] [address] [place] [address] [employer] Beam Machine Operator: Haja Franz MD Potassium [Moles/Vol] 4.2 mmol/L Normal 3.7-5.3 [facility] Comment on above: Performed By: #### B LEONCIO, CDP #### [email or web address] [address] [place] [address] Laser Beam Machine Operator: Haja Franz MD Sodium [Moles/Vol] 137 mmol/L Normal 135-144 [facility] Comment on above: Performed By: #### B LEONCIO, CDP #### [facility] [address] [place] [address] Laser Beam Machine Operator: Haja Franz MD Urea nitrogen [Mass/Vol] 23 mg/dL High 6-20 [facility] Comment on above: Performed By: #### B LEONCIO, CDP #### [facility] [address] [place] [address] Laser Beam Machine Operator: Haja Franz MD CBC with Diffon 12-03-2023 Abs. Basophil 0.08 k/uL Normal 0.00-0.20 [facility] Comment on above: Performed By: #### B LEONCIO, CDP #### [facility] [address] [place] [address] Laser Beam Machine Operator: Haja Franz MD Abs.Imm.Granulocyte 0.08 k/uL Normal 0.00-0.30 [facility] Comment on above: Performed By: #### B LEONCIO, CDP #### [address] [address] Laser Beam Machine Operator: Haja Franz MD Abs.Neutrophil (Seg) 8.82 k/uL High 1.50-8.10 [facility] Comment on above: Performed By: #### B LEONCIO, CDP #### [facility] [address] [place] [address] Laser Beam Machine Operator: Haja Franz MD Basophils/100 WBC (Bld) 1 % Normal 0-2 [facility] Comment on above: Performed By: #### B LEONCIO, CDP #### [address] [address] [employer] Beam Machine Operator: Haja Franz MD Eosinophils (Bld) [#/Vol] 0.12 10*3/uL Normal 0.00-0.44 [facility] Comment on above: Performed By: #### B LEONCIO, CDP #### [facility] [address] [place] [address] [employer] Be[employer] Machine Operator: Haja Frazn MD Eosinophils/100 WBC (Bld) 1 % Normal 1-4 [facility] Comment on above: Performed By: #### B MP, CDP #### [facility] [address] [place] [address] [employer] Be[employer] Machine Operator: Haja Franz MD Erythrocyte distribution width (RBC) [Ratio] 16.8 % High 11.8-14.4 [facility] Comment on above: Performed By: #### B MP, CDP #### [facility] [address] [place] [address] Laser Beam Machine Operator: Haja Franz MD Hematocrit (Bld) [Volume fraction] 41.4 % Normal 36.3-47.1 [facility] Comment on above: Performed By: #### B MP, CDP #### [facility] [address] [place] [address] Laser Beam Machine Operator: Haja Franz MD Hemoglobin (Bld) [Mass/Vol] 13.3 g/dL Normal 11.9-15.1 [facility] Comment on above: Performed By: #### B MP, CDP #### [facility] [address] [place] [address] Laser Beam Machine Operator: Haja Franz MD Immature granulocytes/100 WBC (Bld) 1 % High 0 [facility] Comment on above: Performed By: #### B MP, CDP #### [facility] [address] [place] [address] Laser Beam Machine Operator: Haja Franz MD Lymphocytes (Bld) [#/Vol] 1.61 10*3/uL Normal 1.10-3.70 [facility] Comment on above: Performed By: #### B MP, CDP #### [facility] [address] [place] [address] Laser Beam Machine Operator: Haja Franz MD Lymphocytes/100 WBC (Bld) 14 % Low 24-43 [facility] Comment on above: Performed By: #### B MP, CDP #### [facility] [address] [place] [address] Laser Beam Machine Operator: Haja Franz MD MCH (RBC) [Entitic mass] 28.2 pg Normal 25.2-33.5 [facility] Comment on above: Performed By: #### B MP, CDP #### [address] [address] Laser Beam Machine Operator: Haja Franz MD MCHC (RBC) [Mass/Vol] 32.1 g/dL Normal 28.4-34.8 [facility] Comment on above: Performed By: #### B MP, CDP #### [address] [address] Laser Beam Machine Operator: Haja Franz MD MCV (RBC) [Entitic vol] 87.9 fL Normal 82.6-102.9 [facility] Comment on above: Performed By: #### B MP, CDP #### [address] [address] Laser Beam Machine Operator: Haja Franz MD Monocytes (Bld) [#/Vol] 0.68 10*3/uL Normal 0.10-1.20 [facility] Comment on above: Performed By: #### B MP, CDP #### [address] [address] Laser Beam Machine Operator: Haja Franz MD Monocytes/100 WBC (Bld) 6 % Normal 3-12 [facility] Comment on above: Performed By: #### B MP, CDP #### [address] [address] Laser Beam Machine Operator: Haja Franz MD Neutrophil (Seg) 77 % High 36-65 [facility] Comment on above: Performed By: #### B MP, CDP #### [facility] [address] [place] [address] Laser Beam Machine Operator: Haja Franz MD NRBC Automated 0.0 per 100 WBC Normal 0.0 [facility] Comment on above: Performed By: #### B MP, CDP #### [address] [address] Laser Beam Machine Operator: Haja Franz MD Platelet mean volume (Bld) [Entitic vol] 11.0 fL Normal 8.1-13.5 [facility] Comment on above: Performed By: #### B MP, CDP #### [address] [address] Laser Beam Machine Operator: Haja Franz MD Platelets (Bld) [#/Vol] 211 10*3/uL Normal 138-453 [facility] Comment on above: Performed By: #### B LEONCIO, CDP #### [address] [address] Laser Beam Machine Operator: Haja Franz MD RBC (Bld) [#/Vol] 4.71 10*6/uL Normal 3.95-5.11 [facility] Comment on above: Performed By: #### B MP, CDP #### [address] [address] Laser Beam Machine Operator: Haja Franz MD RBC morphology finding Nom (Bld) ANISOCYTOSIS PRESENT Normal [facility] Comment on above: Performed By: #### B LEONCIO, CDP #### [address] [address] Laser Beam Machine Operator: Haja Franz MD WBC (Bld) [#/Vol] 11.4 10*3/uL High 3.5-11.3 [facility] Comment on above: Performed By: #### B MP, CDP #### [address] [address] Laser Beam Machine Operator: Haja Franz MD Type + Screenon 12-03-2023 Type + Screen Sample Expiration 12/09/2023,2359 Arm Band Number [id number] ABO/Rh(D) O POSITIVE Antibody Screen NEGATIVE Normal [facility] Comment on above: Performed By: #### C P, TSHX, DIGC, MG #### [address] [address] Laser Beam Machine Operator: Haja Franz MD Thyroxine T4on 11-02-2023 T4 [Mass/Vol] 9.8 ug/dL Normal 4.5-11.7 [facility] Comment on above: Performed By: #### C DP, CP, MG, TSH, BNP #### [address] [place] [address] Laser Beam Machine Operator: Maria Luisa Bennett MD #### FT3, T4 #### [address] [address] Laser Beam Machine Operator: Haja Franz MD Brain Natri. Peptideon 11-01 Natriuretic peptide B (Bld) [Mass/Vol] 1460 pg/mL High <300 [facility] Comment on above: Result Comment: An age-independent cutoff point of 300 pg/ml has a 98% negative predictive value excluding acute heart failure. Performed By: #### C DP, CP, MG, TSH, BNP #### [address] [place] [address] Laser Be[employer] Machine Operator: Maria Luisa Bennett MD #### FT3, T4 #### [address] [phone] Laser Beam Machine Operator: Haja Franz MD CBC with Diffon 11-01-2023 Abs. Basophil 0.07 k/uL Normal 0.00-0.20 [facility] Comment on above: Performed By: #### C DP, CP, MG, TSH, BNP #### [address] [place] [address] Laser Beam Machine Operator: Maria Luisa Bennett MD #### FT3, T4 #### [address] [address] Laser Beam Machine Operator: Haja Franz MD Abs.Imm.Granulocyte 0.11 k/uL Normal 0.00-0.30 [facility] Comment on above: Performed By: #### C DP, CP, MG, TSH, BNP #### [facility] [address] [place] [address] [place] [phone] Laser Beam Machine Operator: Maria Luisa Benentt MD #### FT3, T4 #### [place] [address] Laser Beam Machine Operator: Haja Franz MD Abs.Neutrophil (Seg) 8.17 k/uL High 1.50-8.10 [facility] Comment on above: Performed By: #### C DP, CP, MG, TSH, BNP #### [address] [place] [phone] Laser Beam Machine Operator: Maria Luisa Bennett MD #### FT3, T4 #### [place] [address] Laser Beam Machine Operator: Haja Franz MD Basophils/100 WBC (Bld) 1 % Normal 0-2 [facility] Comment on above: Performed By: #### C DP, CP, MG, TSH, BNP #### [address] [place] [phone] Laser Beam Machine Operator: Maria Luisa Bennett MD #### FT3, T4 #### [place] [address] Laser Beam Machine Operator: Haja Franz MD Eosinophils (Bld) [#/Vol] 0.19 10*3/uL Normal 0.00-0.44 [facility] Comment on above: Performed By: #### C DP, CP, MG, TSH, BNP #### [facility] [address] [place] [address] [place] [phone] Laser Beam Machine Operator: Maria Luisa Bennett MD #### FT3, T4 #### [place] [address] [place] [address] Laser Beam Machine Operator: Haja Franz MD Eosinophils/100 WBC (Bld) 2 % Normal 1-4 [facility] Comment on above: Performed By: #### C DP, CP, MG, TSH, BNP #### [address] [place] [phone] Laser Beam Machine Operator: Maria Luisa Bennett MD #### FT3, T4 #### [address] [phone] Laser Beam Machine Operator: Haja Franz MD Erythrocyte distribution width (RBC) [Ratio] 16.4 % High 11.8-14.4 [facility] Comment on above: Performed By: #### C DP, CP, MG, TSH, BNP #### [address] [place] [phone] Laser Beam Machine Operator: Maria Luisa Bennett MD #### FT3, T4 #### [address] [address] Laser Beam Machine Operator: Haja Franz MD Hematocrit (Bld) [Volume fraction] 39.8 % Normal 36.3-47.1 [facility] Comment on above: Performed By: #### C DP, CP, MG, TSH, BNP #### [address] [place] [phone] Laser Beam Machine Operator: Maria Luisa Bennett MD #### FT3, T4 #### [address] [phone] Laser Beam Machine Operator: Haja Franz MD Hemoglobin (Bld) [Mass/Vol] 12.6 g/dL Normal 11.9-15.1 [facility] Comment on above: Performed By: #### C DP, CP, MG, TSH, BNP #### [address] [place] [phone] Laser Beam Machine Operator: Maria Luisa Bennett MD #### FT3, T4 #### [place] [address] [place] [address] Laser Beam Machine Operator: Haja Franz MD Immature granulocytes/100 WBC (Bld) 1 % High 0 [facility] Comment on above: Performed By: #### C DP, CP, MG, TSH, BNP #### [address] [place] [address] Laser Beam Machine Operator: Maria Luisa Bennett MD #### FT3, T4 #### [address] [address] Laser Beam Machine Operator: Haja Franz MD Lymphocytes (Bld) [#/Vol] 2.19 10*3/uL Normal 1.10-3.70 [facility] Comment on above: Performed By: #### C DP, CP, MG, TSH, BNP #### [address] [place] [address] Laser Beam Machine Operator: Maria Luisa Bennett MD #### FT3, T4 #### [place] [address] Laser Beam Machine Operator: Haja Franz MD Lymphocytes/100 WBC (Bld) 18 % Low 24-43 [facility] Comment on above: Performed By: #### C DP, CP, MG, TSH, BNP #### [address] [place] [address] Laser Beam Machine Operator: Maria Luisa Bennett MD #### FT3, T4 #### [place] [address] Laser Beam Machine Operator: Haja Franz MD MCH (RBC) [Entitic mass] 27.8 pg Normal 25.2-33.5 [facility] Comment on above: Performed By: #### C DP, CP, MG, TSH, BNP #### [address] [place] [address] Laser Beam Machine Operator: Maria Luisa Bennett MD #### FT3, T4 #### [address] [phone] Laser Beam Machine Operator: Haja Franz MD MCHC (RBC) [Mass/Vol] 31.7 g/dL Normal 28.4-34.8 [facility] Comment on above: Performed By: #### C DP, CP, MG, TSH, BNP #### [address] [place] [phone] Laser Beam Machine Operator: Maria Luisa Bennett MD #### FT3, T4 #### [place] [phone] Laser Beam Machine Operator: Haja Franz MD MCV (RBC) [Entitic vol] 87.9 fL Normal 82.6-102.9 [facility] Comment on above: Performed By: #### C DP, CP, MG, TSH, BNP #### [address] [place] [phone] Laser Beam Machine Operator: Maria Luisa Bennett MD #### FT3, T4 #### [place] [address] Laser Beam Machine Operator: Haja rFanz MD Monocytes (Bld) [#/Vol] 1.18 10*3/uL Normal 0.10-1.20 [facility] Comment on above: Performed By: #### C DP, CP, MG, TSH, BNP #### [address] [place] [phone] Laser Beam Machine Operator: Maria Luisa Bennett MD #### FT3, T4 #### [place] [phone] Laser Beam Machine Operator: Haja Franz MD Monocytes/100 WBC (Bld) 10 % Normal 3-12 [facility] Comment on above: Performed By: #### C DP, CP, MG, TSH, BNP #### [address] [place] [address] Laser Beam Machine Operator: Maria Luisa Bennett MD #### FT3, T4 #### [place] [address] [place], [place] [phone] Laser Beam Machine Operator: Haja Franz MD Neutrophil (Seg) 68 % High 36-65 [facility] Comment on above: Performed By: #### C DP, CP, MG, TSH, BNP #### [facility] [address] [place] [address] [place] [address] Laser Beam Machine Operator: Maria Luisa Bennett MD #### FT3, T4 #### [address] [address] Laser Beam Machine Operator: Haja Franz MD NRBC Automated 0.0 per 100 WBC Normal 0.0 [facility] Comment on above: Performed By: #### C DP, CP, MG, TSH, BNP #### [facility] [address] [place] [address] [place] [phone] Laser Beam Machine Operator: Maria Luisa Bennett MD #### FT3, T4 #### [address] [phone] Laser Beam Machine Operator: Haja Franz MD Platelet mean volume (Bld) [Entitic vol] 11.0 fL Normal 8.1-13.5 [facility] Comment on above: Performed By: #### C DP, CP, MG, TSH, BNP #### [facility] [address] [place] [address] [place] [address] Laser Beam Machine Operator: Maria Luisa Bennett MD #### FT3, T4 #### [place] [address] [place], [place] [phone] Laser Beam Machine Operator: Haja Franz MD Platelets (Bld) [#/Vol] 294 10*3/uL Normal 138-453 [facility] Comment on above: Performed By: #### C DP, CP, MG, TSH, BNP #### [address] [place], [place] 1087383 Laser Beam Machine Operator: Maria Luisa Bennett MD #### FT3, T4 #### [address] [address] Laser Beam Machine Operator: Haja Franz MD RBC (Bld) [#/Vol] 4.53 10*6/uL Normal 3.95-5.11 [facility] Comment on above: Performed By: #### C DP, CP, MG, TSH, BNP #### [address] [place] [address] Laser Beam Machine Operator: Maria Luisa Bennett MD #### FT3, T4 #### [address] [address] Laser Beam Machine Operator: Haja Franz MD WBC (Bld) [#/Vol] 11.9 10*3/uL High 3.5-11.3 [facility] Comment on above: Performed By: #### C DP, CP, MG, TSH, BNP #### [address] [place], [place] [phone] Laser Beam Machine Operator: Maria Luisa Bennett MD #### FT3, T4 #### [address] [address] Laser Beam Machine Operator: Haja Franz MD Comp Metabolic Profon 2022 Albumin [Mass/Vol] 3.9 g/dL Normal 3.5-5.2 [facility] Comment on above: Performed By: #### C DP, CP, MG, TSH, BNP #### [address] [place] [address] Laser Beam Machine Operator: Maria Luisa Bennett MD #### FT3, T4 #### [address] [phone] Laser Beam Machine Operator: Haja Franz MD Albumin/Glob Ratio 1.0 Normal 1.0-2.5 [facility] Comment on above: Performed By: #### C DP, CP, MG, TSH, BNP #### [facility] [address] [place] [address] [place], [place] [phone] Laser Beam Machine Operator: Maria Luisa Bennett MD #### FT3, T4 #### [address] [phone] Laser Beam Machine Operator: Haja Franz MD Alkaline Phos 166 U/L High 35-104 [facility] Comment on above: Performed By: #### C DP, CP, MG, TSH, BNP #### [address] [place], [place] [phone] Laser Beam Machine Operator: Maria Luisa Bennett MD #### FT3, T4 #### [address] [phone] Laser Beam Machine Operator: Haja Franz MD ALT [Catalytic activity/Vol] 19 U/L Normal 5-33 [facility] Comment on above: Performed By: #### C DP, CP, MG, TSH, BNP #### [address] [place] [address] Laser Beam Machine Operator: Maria Luisa Bennett MD #### FT3, T4 #### [address] [phone] Laser Beam Machine Operator: Haja Franz MD Anion gap [Moles/Vol] 13 mmol/L Normal 9-17 [facility] Comment on above: Performed By: #### C DP, CP, MG, TSH, BNP #### [address] [place], [place] [phone] Laser Beam Machine Operator: Maria Luisa Bennett MD #### FT3, T4 #### [address] [address] Laser Beam Machine Operator: Haja Franz MD AST [Catalytic activity/Vol] 18 U/L Normal <32 [facility] Comment on above: Performed By: #### C DP, CP, MG, TSH, BNP #### [facility] [address] [place] [address] Laser Beam Machine Operator: Maria Luisa Bennett MD #### FT3, T4 #### [address] [phone] Laser Beam Machine Operator: Haja Franz MD Bilirubin [Mass/Vol] 0.5 mg/dL Normal 0.3-1.2 [facility] Comment on above: Performed By: #### C DP, CP, MG, TSH, BNP #### [address] [place] [address] Laser Beam Machine Operator: Maria Luisa Bennett MD #### FT3, T4 #### [address] [phone] Laser Beam Machine Operator: Haja Franz MD BUN/CRE Ratio 13 Normal 9-20 [facility] Comment on above: Performed By: #### C DP, CP, MG, TSH, BNP #### [address] [place] [address] Laser Beam Machine Operator: Maria Luisa Bennett MD #### FT3, T4 #### [address] [phone] Laser Beam Machine Operator: Haja Franz MD Calcium [Mass/Vol] 9.6 mg/dL Normal 8.6-10.4 [facility] Comment on above: Performed By: #### C DP, CP, MG, TSH, BNP #### [address] [place] [address] Laser Beam Machine Operator: Maria Luisa Bennett MD #### FT3, T4 #### [address] [phone] Laser Beam Machine Operator: Haja Franz MD Chloride [Moles/Vol] 95 mmol/L Low 98-107 [facility] Comment on above: Performed By: #### C DP, CP, MG, TSH, BNP #### [facility] [address] [place] [address] Laser Beam Machine Operator: Maria Luisa Bennett MD #### FT3, T4 #### [address] [phone] Laser Beam Machine Operator: Haja Franz MD CO2 [Moles/Vol] 24 mmol/L Normal 20-31 [facility] Comment on above: Performed By: #### C DP, CP, MG, TSH, BNP #### [facility] [address] [place] [address] Laser Beam Machine Operator: Maria Luisa Bennett MD #### FT3, T4 #### [address] [phone] Laser Beam Machine Operator: Haja Franz MD Creatinine [Mass/Vol] 1.6 mg/dL High 0.5-0.9 [facility] Comment on above: Performed By: #### C DP, CP, MG, TSH, BNP #### [facility] [address] [place] [address] [place] [address] Laser Beam Machine Operator: Maria Luisa Bennett MD #### FT3, T4 #### [address] [phone] Laser Be[employer] Machine Operator: Haja Franz MD GFR/1.73 sq M.predicted among non-blacks MDRD (S/P/Bld) [Vol rate/Area] 37 mL/min/{1.73_m2} Low >60 [facility] Comment on above: Result Comment: These [...] renal tubular secretion. Performed By: #### C DP, CP, MG, TSH, BNP #### [facility] [address] [place], [place] [phone] Laser Beam Machine Operator: Maria Luisa Bennett MD #### FT3, T4 #### [address] [phone] Laser Beam Machine Operator: Haja Franz MD Glucose [Mass/Vol] 205 mg/dL High 70-99 [facility] Comment on above: Performed By: #### C DP, CP, MG, TSH, BNP #### [address] [place], [place] [phone] Laser Beam Machine Operator: Maria Luisa Bennett MD #### FT3, T4 #### [address] [phone] Laser Beam Machine Operator: Haja Franz MD Potassium [Moles/Vol] 5.3 mmol/L Normal 3.7-5.3 [facility] Comment on above: Performed By: #### C DP, CP, MG, TSH, BNP #### [address] [place], [place] [phone] Laser [employer]am Machine Operator: Maria Luisa Bennett MD #### FT3, T4 #### [address] [address] Laser Beam Machine Operator: Haja Franz MD Protein [Mass/Vol] 7.7 g/dL Normal 6.4-8.3 [facility] Comment on above: Performed By: #### C DP, CP, MG, TSH, BNP #### [facility] [address] [place] [address] [place] [place], [place] [phone] Laser Beam Machine Operator: Maria Luisa Bennett MD #### FT3, T4 #### [address] [address] Laser Beam Machine Operator: Haja Franz MD Sodium [Moles/Vol] 132 mmol/L Low 135-144 [facility] Comment on above: Performed By: #### C DP, CP, MG, TSH, BNP #### [address] [place], [place] [phone] Laser Beam Machine Operator: Maria Luisa Bennett MD #### FT3, T4 #### [address] [address] Laser Beam Machine Operator: Haja Franz MD Urea nitrogen [Mass/Vol] 20 mg/dL Normal 6-20 [facility] Comment on above: Performed By: #### C DP, CP, MG, TSH, BNP #### [address] [place] [phone] Laser Beam Machine Operator: Maria Luisa Bennett MD #### FT3, T4 #### [address] [phone] Laser Beam Machine Operator: Haja Franz MD Magnesiumon Magnesium [Mass/Vol] 2.4 mg/dL Normal 1.6-2.6 [facility] Comment on above: Performed By: #### C DP, CP, MG, TSH, BNP #### [address] [place], [place] 8153683 Laser Beam Machine Operator: Maria Luisa Bennett MD #### FT3, T4 #### [address] [address] Laser Beam Machine Operator: Haja Franz MD T3, Freeon 6 Free T3 [Mass/Vol] 3.30 pg/mL Normal 2.02-4.43 [facility] Comment on above: Performed By: #### C DP, CP, MG, TSH, BNP #### [address] [place] [address] Laser Beam Machine Operator: Maria Luisa Bennett MD #### FT3, T4 #### [address] [address] Laser Beam Machine Operator: Haja Franz MD Thyroid Stim. Horm.on 2022 Thyroid Stim. Horm. 0.63 uIU/mL Normal 0.30-5.00 [facility] Comment on above: Performed By: #### C DP, CP, MG, TSH, BNP #### [facility] [address] [place] [address] Laser Beam Machine Operator: Maria Luisa Bennett MD #### FT3, T4 #### [address] [address] Laser Beam Machine Operator: Haja Franz MD Basic Metabolic Profon 10-24 Anion gap [Moles/Vol] 8 mmol/L Low 9-17 [facility] Comment on above: Performed By: #### Dann Kaufman, BMP #### [address] [address] Laser Beam Machine Operator: Haja Franz MD Calcium [Mass/Vol] 8.4 mg/dL Low 8.6-10.4 [facility] Comment on above: Performed By: #### Dann Kaufman, BMP #### [address] [address] Laser Beam Machine Operator: Haja Franz MD Chloride [Moles/Vol] 99 mmol/L Normal 98-107 [facility] Comment on above: Performed By: #### Dann Kaufman, BMP #### [address] [address] [employer] Beam Machine Operator: Haja Franz MD CO2 [Moles/Vol] 25 mmol/L Normal 20-31 [facility] Comment on above: Performed By: #### Dann G, BMP #### [facility] [address] [place] [address] [employer] Beam Machine Operator: Haja Franz MD Creatinine [Mass/Vol] 1.2 mg/dL High 0.5-0.9 [facility] Comment on above: Performed By: #### M G, BMP #### [facility] [address] [place] [address] [employer] Beam Machine Operator: Haja Franz MD GFR/1.73 sq M.predicted among non-blacks MDRD (S/P/Bld) [Vol rate/Area] 53 mL/min/{1.73_m2} Low >60 [facility] Comment on above: Result Comment: These results [...] renal tubular secretion. Performed By: #### Dann Kaufman, BMP #### [facility] [address] [place] [address] [employer] Be[employer] Machine Operator: Haja Franz MD Glucose [Mass/Vol] 240 mg/dL High 70-99 [facility] Comment on above: Performed By: #### Dann Kaufman, BMP #### [facility] [address] [place] [address] Laser Beam Machine Operator: Haja Franz MD Potassium [Moles/Vol] 3.6 mmol/L Low 3.7-5.3 [facility] Comment on above: Performed By: #### Dann Kaufman, BMP #### [facility] [address] [place] [address] [employer] Beam Machine Operator: Haja Franz MD Sodium [Moles/Vol] 132 mmol/L Low 135-144 [facility] Comment on above: Performed By: #### Dann Kaufman, BMP #### [facility] [address] [place] [address] [employer] Be[employer] Machine Operator: Haja Franz MD Urea nitrogen [Mass/Vol] 18 mg/dL Normal 6-20 [facility] Comment on above: Performed By: #### Dann G, BMP #### [facility] [address] [place] [address] [employer] Beam Machine Operator: Haja Franz MD Magnesiumon 10-24-2023 Magnesium [Mass/Vol] 2.1 mg/dL Normal 1.6-2.6 [facility] Comment on above: Performed By: #### M G, BMP #### [facility] [address] [place] [address] [employer] Be[employer] Machine Operator: Haja Franz MD Basic Metabolic Profon 10-23 Anion gap [Moles/Vol] 11 mmol/L Normal 9-17 [facility] Comment on above: Performed By: #### C P, TSHX, DIGC, MG #### [address] [address] [employer] Be[employer] Machine Operator: Haja Franz MD Calcium [Mass/Vol] 8.5 mg/dL Low 8.6-10.4 [facility] Comment on above: Performed By: #### C P, TSHX, DIGC, MG #### [address] [address] Laser Beam Machine Operator: Haja Franz MD Chloride [Moles/Vol] 101 mmol/L Normal 98-107 [facility] Comment on above: Performed By: #### C P, TSHX, DIGC, MG #### [facility] [address] [place] [address] Laser Beam Machine Operator: Haja Franz MD CO2 [Moles/Vol] 27 mmol/L Normal 20-31 [facility] Comment on above: Performed By: #### C P, TSHX, DIGC, MG #### [facility] [address] [place] [address] Laser Beam Machine Operator: Haja Franz MD Creatinine [Mass/Vol] 1.2 mg/dL High 0.5-0.9 [facility] Comment on above: Performed By: #### C P, TSHX, DIGC, MG #### [facility] [address] [place] [address] [employer] Machine Operator: Haja Franz MD GFR/1.73 sq M.predicted among non-blacks MDRD (S/P/Bld) [Vol rate/Area] 53 mL/min/{1.73_m2} Low >60 [facility] Comment on above: Result Comment: These results [...] #### C P, TSHX, DIGC, MG #### [email or web address] [address] [place] [address] Laser Beam Machine Operator: Haja Franz MD Glucose [Mass/Vol] 158 mg/dL High 70-99 [facility] Comment on above: Performed By: #### C P, TSHX, DIGC, MG #### [facility] [address] [place] [address] Laser Beam Machine Operator: Haja Franz MD Potassium [Moles/Vol] 3.8 mmol/L Normal 3.7-5.3 [facility] Comment on above: Performed By: #### C P, TSHX, DIGC, MG #### [email or web address] [address] [place] [address] Laser Beam Machine Operator: Haja Franz MD Sodium [Moles/Vol] 139 mmol/L Normal 135-144 [facility] Comment on above: Performed By: #### C P, TSHX, DIGC, MG #### [email or web address] [address] [place] [address] Laser Beam Machine Operator: Haja Franz MD Urea nitrogen [Mass/Vol] 19 mg/dL Normal 6-20 [facility] Comment on above: Performed By: #### C P, TSHX, DIGC, MG #### [facility] [address] [place] [address] Laser Beam Machine Operator: Haja Franz MD Magnesiumon 10-23-2023 Magnesium [Mass/Vol] 2.1 mg/dL Normal 1.6-2.6 [facility] Comment on above: Performed By: #### C P, TSHX, DIGC, MG #### [facility] [address] [place] [address] Laser Be[employer] Machine Operator: Haja Franz MD Basic Metabolic Profon 10-22 Anion gap [Moles/Vol] 9 mmol/L Normal 08-12 [facility] Comment on above: Performed By: #### C P, TSHX, DIGC, MG #### [facility] [address] [place] [address] 8[address] [employer] Be[employer] Machine Operator: Haja Franz MD Calcium [Mass/Vol] 8.4 mg/dL Low 8.6-10.4 [facility] Comment on above: Performed By: #### C P, TSHX, DIGC, MG #### [facility] [address] [place] [address] Laser Beam Machine Operator: Haja Franz MD Chloride [Moles/Vol] 96 mmol/L Low 98-107 [facility] Comment on above: Performed By: #### C P, TSHX, DIGC, MG #### [facility] [address] [place] [address] Laser Beam Machine Operator: Haja Franz MD CO2 [Moles/Vol] 29 mmol/L Normal [facility] Comment on above: Performed By: #### C P, TSHX, DIGC, MG #### [facility] [address] [place] [address] Laser Beam Machine Operator: Haja Franz MD Creatinine [Mass/Vol] 1.3 mg/dL High 0.5-0.9 [facility] Comment on above: Performed By: #### C P, TSHX, DIGC, MG #### [facility] [address] [place] [address] [employer] Be[employer] Machine Operator: Haja Franz MD GFR/1.73 sq M.predicted among non-blacks MDRD (S/P/Bld) [Vol rate/Area] 48 mL/min/{1.73_m2} Low >60 [facility] Comment on above: Result Comment: These results [...] #### C P, TSHX, DIGC, MG #### [email or web address] [address] [place] [address] [employer] Machine Operator: Haja Franz MD Glucose [Mass/Vol] 234 mg/dL High 70-99 [facility] Comment on above: Performed By: #### C P, TSHX, DIGC, MG #### [email or web address] [address] [place] [address] Laser Beam Machine Operator: Haja Franz MD Potassium [Moles/Vol] 3.5 mmol/L Low 3.7-5.3 [facility] Comment on above: Performed By: #### C P, TSHX, DIGC, MG #### [email or web address] [address] [place] [address] Laser Beam Machine Operator: Haja Franz MD Sodium [Moles/Vol] 134 mmol/L Low 135-144 [facility] Comment on above: Performed By: #### C P, TSHX, DIGC, MG #### [email or web address] [address] [place] [address] Laser Beam Machine Operator: Haja Franz MD Urea nitrogen [Mass/Vol] 28 mg/dL High 6-20 [facility] Comment on above: Performed By: #### C P, TSHX, DIGC, MG #### [email or web address] [address] [place] [address] [employer] Be[employer] Machine Operator: Haja Franz MD Digoxinon 10-22-2023 Digoxin [Mass/Vol] 1.4 ng/mL Normal 0.5-2.0 [facility] Comment on above: Result Comment: Digoxin Reference Range: Heart Failure 0.5-0.9 Atrial Fibrillation 0.8-2.0 Performed By: #### C P, TSHX, DIGC, MG #### [facility] [address] [place] [address] Laser Beam Machine Operator: Haja Franz MD Liver Profileon 10-22-2023 Albumin [Mass/Vol] 2.7 g/dL Low 3.5-5.2 [facility] Comment on above: Performed By: #### C P, TSHX, DIGC, MG #### [facility] [address] [place] [address] Laser Beam Machine Operator: Haja Franz MD Albumin/Glob Ratio 0.8 Low 1.0-2.5 [facility] Comment on above: Performed By: #### C P, TSHX, DIGC, MG #### [email or web address] [address] [place] [address] Laser Beam Machine Operator: Haja Franz MD Alkaline Phos 137 U/L High 35-104 [facility] Comment on above: Performed By: #### C P, TSHX, DIGC, MG #### [email or web address] [address] [place] [address] Laser Beam Machine Operator: Haja Franz MD ALT [Catalytic activity/Vol] 25 U/L Normal 5-33 [facility] Comment on above: Performed By: #### C P, TSHX, DIGC, MG #### [facility] [address] [place] [address] Laser Beam Machine Operator: Haja Franz MD AST [Catalytic activity/Vol] 16 U/L Normal <32 [facility] Comment on above: Performed By: #### C P, TSHX, DIGC, MG #### [facility] [address] [place] [address] Laser Beam Machine Operator: Haja Franz MD Bilirubin [Mass/Vol] 0.6 mg/dL Normal 0.3-1.2 [facility] Comment on above: Performed By: #### C P, TSHX, DIGC, MG #### [facility] [address] [place] [address] Laser Beam Machine Operator: Haja Franz MD Bilirubin, Indirect 0.4 mg/dL Normal 0.0-1.0 [facility] Comment on above: Performed By: #### C P, TSHX, DIGC, MG #### [facility] [address] [place] [address] Laser Beam Machine Operator: Haja Franz MD Bilirubin.indirect [Mass/Vol] 0.2 mg/dL Normal <0.3 [facility] Comment on above: Performed By: #### C P, TSHX, DIGC, MG #### [facility] [address] [place] [address]68 Laser Beam Machine Operator: Haja Franz MD Protein [Mass/Vol] 5.9 g/dL Low 6.4-8.3 [facility] Comment on above: Performed By: #### C P, TSHX, DIGC, MG #### [facility] [address] [place] [address] Laser Beam Machine Operator: Haja Franz MD Magnesiumon 10-22-2023 Magnesium [Mass/Vol] 1.9 mg/dL Normal 1.6-2.6 [facility] Comment on above: Performed By: #### C P, TSHX, DIGC, MG #### [address] [address] Laser Be[employer] Machine Operator: Haja Franz MD Basic Metabolic Profon 10-21 Anion gap [Moles/Vol] 10 mmol/L Normal 9-17 [facility] Comment on above: Performed By: #### C P, TSHX, DIGC, MG #### [facility] [address] [place] [address] Laser Beam Machine Operator: Haja Franz MD Calcium [Mass/Vol] 8.4 mg/dL Low 8.6-10.4 [facility] Comment on above: Performed By: #### C P, TSHX, DIGC, MG #### [address] [address] Laser Beam Machine Operator: Haja Franz MD Chloride [Moles/Vol] 97 mmol/L Low 98-107 [facility] Comment on above: Performed By: #### C P, TSHX, DIGC, MG #### [facility] [address] [place] [address] Laser Beam Machine Operator: Haja Franz MD CO2 [Moles/Vol] 28 mmol/L Normal 20-31 [facility] Comment on above: Performed By: #### C P, TSHX, DIGC, MG #### [facility] [address] [place] [address] Laser Beam Machine Operator: Haja Franz MD Creatinine [Mass/Vol] 1.5 mg/dL High 0.5-0.9 [facility] Comment on above: Performed By: #### C P, TSHX, DIGC, MG #### [facility] [address] [place] [address] [employer] Beam Machine Operator: Haja Franz MD GFR/1.73 sq M.predicted among non-blacks MDRD (S/P/Bld) [Vol rate/Area] 40 mL/min/{1.73_m2} Low >60 [facility] Comment on above: Result Comment: These results [...] C P, TSHX, DIGC, MG #### [facility] [address] [place] [address] Laser Beam Machine Operator: Haja Franz MD Glucose [Mass/Vol] 275 mg/dL High 70-99 [facility] Comment on above: Performed By: #### C P, TSHX, DIGC, MG #### [facility] [address] [place] [address]691 Laser Beam Machine Operator: Haja Franz MD Potassium [Moles/Vol] 4.0 mmol/L Normal 3.7-5.3 [facility] Comment on above: Performed By: #### C P, TSHX, DIGC, MG #### [facility] [address] [place] [address]69 Laser Beam Machine Operator: Haja Franz MD Sodium [Moles/Vol] 135 mmol/L Normal 135-144 [facility] Comment on above: Performed By: #### C P, TSHX, DIGC, MG #### [facility] [address] [place] [address] Laser Beam Machine Operator: Haja Franz MD Urea nitrogen [Mass/Vol] 29 mg/dL High 6-20 [facility] Comment on above: Performed By: #### C P, TSHX, DIGC, MG #### [facility] [address] [place] [address] 7[address]26 Laser Beam Machine Operator: Haja Franz MD CBC with Diffon 10-21-2023 Abs. Basophil 0.09 k/uL Normal 0.00-0.20 [facility] Comment on above: Performed By: #### C P, TSHX, DIGC, MG #### [address] [address] Laser Beam Machine Operator: Haja Franz MD Abs.Imm.Granulocyte 0.07 k/uL Normal 0.00-0.30 [facility] Comment on above: Performed By: #### C P, TSHX, DIGC, MG #### [address] [address] Laser Beam Machine Operator: Haja Franz MD Abs.Neutrophil (Seg) 7.38 k/uL Normal 1.50-8.10 [facility] Comment on above: Performed By: #### C P, TSHX, DIGC, MG #### [address] [address] Laser Beam Machine Operator: Haja Franz MD Basophils/100 WBC (Bld) 1 % Normal 0-2 [facility] Comment on above: Performed By: #### C P, TSHX, DIGC, MG #### [facility] [address] [place] [address] 92365 Laser Beam Machine Operator: Haja Franz MD Eosinophils (Bld) [#/Vol] 0.03 10*3/uL Normal 0.00-0.44 [facility] Comment on above: Performed By: #### C P, TSHX, DIGC, MG #### [facility] [address] [place] [address] 81182 Laser Beam Machine Operator: Haja Franz MD Eosinophils/100 WBC (Bld) 0 % Low 1-4 [facility] Comment on above: Performed By: #### C P, TSHX, DIGC, MG #### [facility] [address] [place] [address] Laser Beam Machine Operator: Haja Franz MD Erythrocyte distribution width (RBC) [Ratio] 15.7 % High 11.8-14.4 [facility] Comment on above: Performed By: #### C P, TSHX, DIGC, MG #### [address] [address] Laser Beam Machine Operator: Haja Franz MD Hematocrit (Bld) [Volume fraction] 35.6 % Low 36.3-47.1 [facility] Comment on above: Performed By: #### C P, TSHX, DIGC, MG #### [facility] [address] [place] [address] Laser Beam Machine Operator: Haja Franz MD Hemoglobin (Bld) [Mass/Vol] 11.3 g/dL Low 11.9-15.1 [facility] Comment on above: Performed By: #### C P, TSHX, DIGC, MG #### [facility] [address] [place] [address] Laser Beam Machine Operator: Haja Franz MD Immature granulocytes/100 WBC (Bld) 1 % High 0 [facility] Comment on above: Performed By: #### C P, TSHX, DIGC, MG #### [facility] [address] [place] [address]67 Laser Beam Machine Operator: Haja Franz MD Lymphocytes (Bld) [#/Vol] 1.38 10*3/uL Normal 1.10-3.70 [facility] Comment on above: Performed By: #### C P, TSHX, DIGC, MG #### [facility] [address] [place] [address] 28[address] Laser Beam Machine Operator: Haja Franz MD Lymphocytes/100 WBC (Bld) 14 % Low 24-43 [facility] Comment on above: Performed By: #### C P, TSHX, DIGC, MG #### [place] [address] [employer] Be[employer] Machine Operator: Haja Franz MD MCH (RBC) [Entitic mass] 28.2 pg Normal 25.2-33.5 [facility] Comment on above: Performed By: #### C P, TSHX, DIGC, MG #### [address] [address] Laser Beam Machine Operator: Haja Franz MD MCHC (RBC) [Mass/Vol] 31.7 g/dL Normal 28.4-34.8 [facility] Comment on above: Performed By: #### C P, TSHX, DIGC, MG #### [address] [address] Laser Beam Machine Operator: Haja Franz MD MCV (RBC) [Entitic vol] 88.8 fL Normal 82.6-102.9 [facility] Comment on above: Performed By: #### C P, TSHX, DIGC, MG #### [address] [address] Laser Beam Machine Operator: Haja Franz MD Monocytes (Bld) [#/Vol] 0.85 10*3/uL Normal 0.10-1.20 [facility] Comment on above: Performed By: #### C P, TSHX, DIGC, MG #### [address] [address] Laser Beam Machine Operator: Haja Franz MD Monocytes/100 WBC (Bld) 9 % Normal 3-12 [facility] Comment on above: Performed By: #### C P, TSHX, DIGC, MG #### [address] [address] Laser Beam Machine Operator: Haja Franz MD Neutrophil (Seg) 75 % High 36-65 [facility] Comment on above: Performed By: #### C P, TSHX, DIGC, MG #### [address] [address] Laser Beam Machine Operator: Haja Franz MD NRBC Automated 0.0 per 100 WBC Normal 0.0 [facility] Comment on above: Performed By: #### C P, TSHX, DIGC, MG #### [facility] [address] [place] [address] Laser Beam Machine Operator: Haja Franz MD Platelet mean volume (Bld) [Entitic vol] 10.8 fL Normal 8.1-13.5 [facility] Comment on above: Performed By: #### C P, TSHX, DIGC, MG #### [address] [address] [employer] Beam Machine Operator: Haja Franz MD Platelets (Bld) [#/Vol] 273 10*3/uL Normal 138-453 [facility] Comment on above: Performed By: #### C P, TSHX, DIGC, MG #### [address] [address] Laser Beam Machine Operator: Haja Franz MD RBC (Bld) [#/Vol] 4.01 10*6/uL Normal 3.95-5.11 [facility] Comment on above: Performed By: #### C P, TSHX, DIGC, MG #### [address] [address] Laser Beam Machine Operator: Haja Franz MD RBC morphology finding Nom (Bld) ANISOCYTOSIS PRESENT Normal [facility] Comment on above: Performed By: #### C P, TSHX, DIGC, MG #### [facility] [address] [place] [address]678 [employer] Beam Machine Operator: Haja Franz MD WBC (Bld) [#/Vol] 9.8 10*3/uL Normal 3.5-11.3 [facility] Comment on above: Performed By: #### C P, TSHX, DIGC, MG #### [address] [place] [address] [employer] Machine Operator: Haja Franz MD Magnesiumon 10-21-2023 Magnesium [Mass/Vol] 1.7 mg/dL Normal 1.6-2.6 [facility] Comment on above: Performed By: #### C P, TSHX, DIGC, MG #### [facility] [address] [place] [address] Laser Beam Machine Operator: Haja Franz MD Basic Metabolic Profon 10-20 Anion gap [Moles/Vol] 10 mmol/L Normal 9-17 [facility] Comment on above: Performed By: #### C P, TSHX, DIGC, MG #### [facility] [address] [place] [address] Laser Beam Machine Operator: Haja Franz MD Calcium [Mass/Vol] 8.5 mg/dL Low 8.6-10.4 [facility] Comment on above: Performed By: #### C P, TSHX, DIGC, MG #### [facility] [address] [place] [address] [employer] Machine Operator: Haja Franz MD Chloride [Moles/Vol] 97 mmol/L Low 98-107 [facility] Comment on above: Performed By: #### C P, TSHX, DIGC, MG #### [facility] [address] [place] [address] [employer] Beam Machine Operator: Haja Franz MD CO2 [Moles/Vol] 30 mmol/L Normal 20-31 [facility] Comment on above: Performed By: #### C P, TSHX, DIGC, MG #### [facility] [address] [place] [address] [employer] Beam Machine Operator: Haja Franz MD Creatinine [Mass/Vol] 1.4 mg/dL High 0.5-0.9 [facility] Comment on above: Performed By: #### C P, TSHX, DIGC, MG #### [email or web address] [address] [place] [address] [employer] Machine Operator: Haja Franz MD GFR/1.73 sq M.predicted among non-blacks MDRD (S/P/Bld) [Vol rate/Area] 44 mL/min/{1.73_m2} Low >60 [facility] Comment on above: Result Comment: These results [...] #### C P, TSHX, DIGC, MG #### [facility] [address] [place] [address] [employer] Machine Operator: Haja Franz MD Glucose [Mass/Vol] 177 mg/dL High 70-99 [facility] Comment on above: Performed By: #### C P, TSHX, DIGC, MG #### [facility] [address] [place] [address]65 [employer] Machine Operator: Haja Franz MD Potassium [Moles/Vol] 3.8 mmol/L Normal 3.7-5.3 [facility] Comment on above: Performed By: #### C P, TSHX, DIGC, MG #### [email or web address] [address] [place] [address]47 [employer] Machine Operator: Haja Franz MD Sodium [Moles/Vol] 137 mmol/L Normal 135-144 [facility] Comment on above: Performed By: #### C P, TSHX, DIGC, MG #### [facility] [address] [place] [address] 9[address] [employer] Beam Machine Operator: Haja Franz MD Urea nitrogen [Mass/Vol] 31 mg/dL High 6-20 [facility] Comment on above: Performed By: #### C P, TSHX, DIGC, MG #### [email or web address] [address] [place] [address] [employer] Machine Operator: Haja Franz MD CBCon 10-20-2023 Erythrocyte distribution width (RBC) [Ratio] 16.0 % High 11.8-14.4 [facility] Comment on above: Performed By: #### C P, TSHX, DIGC, MG #### [facility] [address] [place] [address] [employer] Beam Machine Operator: Haja Franz MD Hematocrit (Bld) [Volume fraction] 34.7 % Low 36.3-47.1 [facility] Comment on above: Performed By: #### C P, TSHX, DIGC, MG #### [email or web address] [address] [place] [address] [employer] Machine Operator: Haja Franz MD Hemoglobin (Bld) [Mass/Vol] 10.9 g/dL Low 11.9-15.1 [facility] Comment on above: Performed By: #### C P, TSHX, DIGC, MG #### [email or web address] [address] [place] [address]43 [employer] Machine Operator: Haja Franz MD MCH (RBC) [Entitic mass] 28.1 pg Normal 25.2-33.5 [facility] Comment on above: Performed By: #### C P, TSHX, DIGC, MG #### [facility] [address] [place] [address] Laser Beam Machine Operator: Haja Franz MD MCHC (RBC) [Mass/Vol] 31.4 g/dL Normal 28.4-34.8 [facility] Comment on above: Performed By: #### C P, TSHX, DIGC, MG #### [facility] [address] [place] [address] [employer] Beam Machine Operator: Haja Franz MD MCV (RBC) [Entitic vol] 89.4 fL Normal 82.6-102.9 [facility] Comment on above: Performed By: #### C P, TSHX, DIGC, MG #### [address] [address] [employer] Machine Operator: Haja Franz MD NRBC Automated 0.0 per 100 WBC Normal 0.0 [facility] Comment on above: Performed By: #### C P, TSHX, DIGC, MG #### [address] [address] [employer] Machine Operator: Haja Franz MD Platelet mean volume (Bld) [Entitic vol] 11.2 fL Normal 8.1-13.5 [facility] Comment on above: Performed By: #### C P, TSHX, DIGC, MG #### [address] [address] [employer] Operator: Haja Franz MD Platelets (Bld) [#/Vol] 313 10*3/uL Normal 138-453 [facility] Comment on above: Performed By: #### C P, TSHX, DIGC, MG #### [address] [address] [employer] Operator: Haja Franz MD RBC (Bld) [#/Vol] 3.88 10*6/uL Low 3.95-5.11 [facility] Comment on above: Performed By: #### C P, TSHX, DIGC, MG #### [address] [address] [employer] Be[employer] Machine Operator: Haja Franz MD WBC (Bld) [#/Vol] 10.6 10*3/uL Normal 3.5-11.3 [facility] Comment on above: Performed By: #### C P, TSHX, DIGC, MG #### [address] [place], [place] [id number] [employer] Machine Operator: Haja Franz MD D-Dimer Teston 10-20-2023 D-Dimer Test 0.90 ug/mL FEU High 0.00-0.57 [facility] Comment on above: Result Comment: When [...] patients with distal DVT. Performed By: #### C P, TSHX, DIGC, MG #### [facility] [address] [place] [address] [phone] [employer] Operator: Haja Franz MD Liver Profileon 10-20-2023 Albumin [Mass/Vol] 2.8 g/dL Low 3.5-5.2 [facility] Comment on above: Performed By: #### C P, TSHX, DIGC, MG #### [facility] [place], [place] [phone] Laser Beam Machine Operator: Haja Franz MD Albumin/Glob Ratio 0.8 Low 1.0-2.5 [facility] Comment on above: Performed By: #### C P, TSHX, DIGC, MG #### [facility] [address] [place] [address] [employer] Beam Machine Operator: Haja Franz MD Alkaline Phos 168 U/L High 35-104 [facility] Comment on above: Performed By: #### C P, TSHX, DIGC, MG #### [facility] [address] [place] [address] [employer] Be[employer] Machine Operator: Haja Franz MD ALT [Catalytic activity/Vol] 34 U/L High 5-33 [facility] Comment on above: Performed By: #### C P, TSHX, DIGC, MG #### [facility] [address] [place] [address] [employer] Be[employer] Machine Operator: Haja Franz MD AST [Catalytic activity/Vol] 26 U/L Normal <32 [facility] Comment on above: Performed By: #### C P, TSHX, DIGC, MG #### [facility] [address] [place] [address] [employer] Operator: Haja Franz MD Bilirubin [Mass/Vol] 0.5 mg/dL Normal 0.3-1.2 [facility] Comment on above: Performed By: #### C P, TSHX, DIGC, MG #### [facility] [address] [place] [address] [employer] Machine Operator: Haja Franz MD Bilirubin, Indirect 0.3 mg/dL Normal 0.0-1.0 [facility] Comment on above: Performed By: #### C P, TSHX, DIGC, MG #### [facility] [address] [place] [address] [employer] Machine Operator: Haja Franz MD Bilirubin.indirect [Mass/Vol] 0.2 mg/dL Normal <0.3 [facility] Comment on above: Performed By: #### C P, TSHX, DIGC, MG #### [facility] [address] [place] [address] Laser Beam Machine Operator: Haja Franz MD Protein [Mass/Vol] 6.3 g/dL Low 6.4-8.3 [facility] Comment on above: Performed By: #### C P, TSHX, DIGC, MG #### [facility] [address] [place] [address] [employer] Be[employer] Machine Operator: Haja Franz MD Basic Metabolic Profon 10-19 Anion gap [Moles/Vol] 12 mmol/L Normal 9-17 [facility] Comment on above: Performed By: #### C BC, BMP, XYEL #### [facility] [address] [place] [address] [employer] Operator: Haja Franz MD Calcium [Mass/Vol] 8.4 mg/dL Low 8.6-10.4 [facility] Comment on above: Performed By: #### C BC, BMP, XYEL #### [facility] [address] [place] [address] Laser Beam Machine Operator: Haja Franz MD Chloride [Moles/Vol] 100 mmol/L Normal 98-107 [facility] Comment on above: Performed By: #### C BC, BMP, XYEL #### [facility] [address] [place] [address] [employer] Machine Operator: Haja Franz MD CO2 [Moles/Vol] 24 mmol/L Normal 20-31 [facility] Comment on above: Performed By: #### C BC, BMP, XYEL #### [facility] [address] [place] [address] [employer] Be[employer] Machine Operator: Haja Franz MD Creatinine [Mass/Vol] 1.7 mg/dL High 0.5-0.9 [facility] Comment on above: Performed By: #### C BC, BMP, XYEL #### [address] [address] [employer] Be[employer] Machine Operator: Haja Franz MD GFR/1.73 sq M.predicted among non-blacks MDRD (S/P/Bld) [Vol rate/Area] 35 mL/min/{1.73_m2} Low >60 [facility] Comment on above: Result Comment: These results [...] affects renal tubular secretion. Performed By: #### FRANCESCO LOPEZ XYEL #### [address] [address] [employer] Machine Operator: Haja Franz MD Glucose [Mass/Vol] 275 mg/dL High 70-99 [facility] Comment on above: Performed By: #### FRANCESCO LOPEZ XYDALE #### [address] [address] Laser Be[employer] Machine Operator: Haja Franz MD Potassium [Moles/Vol] 4.3 mmol/L Normal 3.7-5.3 [facility] Comment on above: Performed By: #### FRANCESCO LOPEZ XYDALE #### [facility] [address] [place] [address] Laser Be[employer] Machine Operator: Haja Franz MD Sodium [Moles/Vol] 136 mmol/L Normal 135-144 [facility] Comment on above: Performed By: #### FRANCESCO LOPEZ XYDALE #### [facility] [address] [place] [address] [employer] Operator: Haja Franz MD Urea nitrogen [Mass/Vol] 35 mg/dL High 6-20 [facility] Comment on above: Performed By: #### FRANCESCO LOPEZ XYEL #### [facility] [address] [place] [address] [employer] Machine Operator: Haja Franz MD CBCon 10-19-2023 Erythrocyte distribution width (RBC) [Ratio] 16.4 % High 11.8-14.4 [facility] Comment on above: Performed By: #### C P, TSHX, DIGC, MG #### [facility] [address] [place] [address] [employer] Be[employer] Machine Operator: Haja Franz MD Hematocrit (Bld) [Volume fraction] 32.3 % Low 36.3-47.1 [facility] Comment on above: Performed By: #### C P, TSHX, DIGC, MG #### [facility] [address] [place] [address] [employer] Machine Operator: Haja Franz MD Hemoglobin (Bld) [Mass/Vol] 9.8 g/dL Low 11.9-15.1 [facility] Comment on above: Performed By: #### C P, TSHX, DIGC, MG #### [facility] [address] [place] [address] [employer] Beam Machine Operator: Haja Franz MD MCH (RBC) [Entitic mass] 27.9 pg Normal 25.2-33.5 [facility] Comment on above: Performed By: #### C P, TSHX, DIGC, MG #### [facility] [address] [place] [address] Laser Beam Machine Operator: Haja Franz MD MCHC (RBC) [Mass/Vol] 30.3 g/dL Normal 28.4-34.8 [facility] Comment on above: Performed By: #### C P, TSHX, DIGC, MG #### [facility] [address] [place] [address] [employer] Be[employer] Machine Operator: Haja Franz MD MCV (RBC) [Entitic vol] 92.0 fL Normal 82.6-102.9 [facility] Comment on above: Performed By: #### C P, TSHX, DIGC, MG #### [address] [address] [employer] Beam Machine Operator: Haja Franz MD NRBC Automated 0.0 per 100 WBC Normal 0.0 [facility] Comment on above: Performed By: #### C P, TSHX, DIGC, MG #### [address] [address] [employer] Be[employer] Machine Operator: Haja Franz MD Platelet mean volume (Bld) [Entitic vol] 11.3 fL Normal 8.1-13.5 [facility] Comment on above: Performed By: #### C P, TSHX, DIGC, MG #### [address] [address] Laser Be[employer] Machine Operator: Haja Franz MD Platelets (Bld) [#/Vol] 275 10*3/uL Normal 138-453 [facility] Comment on above: Performed By: #### C P, TSHX, DIGC, MG #### [address] [address] Laser Beam Machine Operator: Haja Franz MD RBC (Bld) [#/Vol] 3.51 10*6/uL Low 3.95-5.11 [facility] Comment on above: Performed By: #### C P, TSHX, DIGC, MG #### [address] [address] Laser Beam Machine Operator: Haja Franz MD WBC (Bld) [#/Vol] 13.0 10*3/uL High 3.5-11.3 [facility] Comment on above: Performed By: #### C P, TSHX, DIGC, MG #### [address] [address] Laser Beam Machine Operator: Haja Franz MD Extra Yellow Tubeon 10-19-20 Extra Yellow Tube Normal [facility] Comment on above: Performed By: #### C BC, BMP, XYEL #### [email or web address] [address] [place] [address] [employer] Machine Operator: Haja Franz MD US RENAL COMPLETEon 10-19-20 [...] Cruz Woody MD 10/19/23 Final result Normal [facility] Basic Metabolic Profon 10-18 Anion gap [Moles/Vol] 11 mmol/L Normal 9-17 [facility] Comment on above: Performed By: #### C P, TSHX, DIGC, MG #### [email or web address] [address] [place] [address] Laser Beam Machine Operator: Haja Franz MD Calcium [Mass/Vol] 8.4 mg/dL Low 8.6-10.4 [facility] Comment on above: Performed By: #### C P, TSHX, DIGC, MG #### [facility] [address] [place] [address] Laser Beam Machine Operator: Haja Franz MD Chloride [Moles/Vol] 96 mmol/L Low 98-107 [facility] Comment on above: Performed By: #### C P, TSHX, DIGC, MG #### [facility] [address] [place] [address] Laser Beam Machine Operator: Haja Franz MD CO2 [Moles/Vol] 24 mmol/L Normal 20-31 [facility] Comment on above: Performed By: #### C P, TSHX, DIGC, MG #### [facility] [address] [place] [address] Laser Beam Machine Operator: Haja Franz MD Creatinine [Mass/Vol] 2.0 mg/dL High 0.5-0.9 [facility] Comment on above: Performed By: #### C P, TSHX, DIGC, MG #### [facility] [address] [place] [address] [employer] Be[employer] Machine Operator: Haja Franz MD GFR/1.73 sq M.predicted among non-blacks MDRD (S/P/Bld) [Vol rate/Area] 29 mL/min/{1.73_m2} Low >60 [facility] Comment on above: Result Comment: These results [...] #### C P, TSHX, DIGC, MG #### [facility] [address] [place] [address] Laser Beam Machine Operator: Haja Franz MD Glucose [Mass/Vol] 304 mg/dL High 70-99 [facility] Comment on above: Performed By: #### C P, TSHX, DIGC, MG #### [facility] [address] [place] [address] [employer] Machine Operator: Haja Franz MD Potassium [Moles/Vol] 4.6 mmol/L Normal 3.7-5.3 [facility] Comment on above: Performed By: #### C P, TSHX, DIGC, MG #### [facility] [address] [place] [address] [phone] [employer] Machine Operator: Haja Franz MD Sodium [Moles/Vol] 131 mmol/L Low 135-144 [facility] Comment on above: Performed By: #### C P, TSHX, DIGC, MG #### [facility] [address] [place] [address] [employer] Machine Operator: Haja Franz MD Urea nitrogen [Mass/Vol] 35 mg/dL High 6-20 [facility] Comment on above: Performed By: #### C P, TSHX, DIGC, MG #### [facility] [address] [place] [address] [employer] Operator: Haja Franz MD CBCon 10-18-2023 Erythrocyte distribution width (RBC) [Ratio] 16.1 % High 11.8-14.4 [facility] Comment on above: Performed By: #### C P, TSHX, DIGC, MG #### [facility] [address] [place] [address] Laser [employer] Machine Operator: Haja Franz MD Hematocrit (Bld) [Volume fraction] 31.9 % Low 36.3-47.1 [facility] Comment on above: Performed By: #### C P, TSHX, DIGC, MG #### [facility] [address] [place] [address] [employer] Machine Operator: Haja rFanz MD Hemoglobin (Bld) [Mass/Vol] 9.9 g/dL Low 11.9-15.1 [facility] Comment on above: Performed By: #### C P, TSHX, DIGC, MG #### [facility] [address] [place] [address] Laser Beam Machine Operator: Haja Franz MD MCH (RBC) [Entitic mass] 27.9 pg Normal 25.2-33.5 [facility] Comment on above: Performed By: #### C P, TSHX, DIGC, MG #### [address] [address] Laser Beam Machine Operator: Haja Franz MD MCHC (RBC) [Mass/Vol] 31.0 g/dL Normal 28.4-34.8 [facility] Comment on above: Performed By: #### C P, TSHX, DIGC, MG #### [address] [address] Laser Beam Machine Operator: Haja Franz MD MCV (RBC) [Entitic vol] 89.9 fL Normal 82.6-102.9 [facility] Comment on above: Performed By: #### C P, TSHX, DIGC, MG #### [address] [address] Laser Beam Machine Operator: Haja Frnaz MD NRBC Automated 0.0 per 100 WBC Normal 0.0 [facility] Comment on above: Performed By: #### C P, TSHX, DIGC, MG #### [address] [address] [employer] Be[employer] Machine Operator: Haja Franz MD Platelet mean volume (Bld) [Entitic vol] 11.6 fL Normal 8.1-13.5 [facility] Comment on above: Performed By: #### C P, TSHX, DIGC, MG #### [address] [address] Laser Beam Machine Operator: Haja Franz MD Platelets (Bld) [#/Vol] 296 10*3/uL Normal 138-453 [facility] Comment on above: Performed By: #### C P, TSHX, DIGC, MG #### [address] [address] Laser Beam Machine Operator: Haja Franz MD RBC (Bld) [#/Vol] 3.55 10*6/uL Low 3.95-5.11 [facility] Comment on above: Performed By: #### C P, TSHX, DIGC, MG #### [address] [address] Laser Be[employer] Machine Operator: Haja Franz MD WBC (Bld) [#/Vol] 8.4 10*3/uL Normal 3.5-11.3 [facility] Comment on above: Performed By: #### C P, TSHX, DIGC, MG #### [address] [address] [employer] Be[employer] Machine Operator: Haja Franz MD Gammaglutamyl Transon 2022 Amylase [Catalytic activity/Vol] 107 U/L High 5-36 [facility] Comment on above: Performed By: #### C P, TSHX, DIGC, MG #### [address] [address] Laser Beam Machine Operator: Haja Frnaz MD Hemoglobin A1Con 10-18-2023 Glucose [Mass/Vol] 200 mg/dL Normal [facility] Comment on above: Result Comment: The ADA and AACC recommend providing the estimated average glucose result to permit better patient understanding of their HBA1c result. Performed By: #### C P, TSHX, DIGC, MG #### [address] [address] [employer] Machine Operator: Haja Franz MD HbA1c (Bld) [Mass fraction] 8.6 % High 4.0-6.0 [facility] Comment on above: Performed By: #### C P, TSHX, DIGC, MG #### [address] [address] Laser Beam Machine Operator: Haja Franz MD UA w/Reflex Cultureon 2022 Bilirubin, SemiQt,Ur Negative Normal NEG [facility] Comment on above: Performed By: #### C P, TSHX, DIGC, MG #### [address] [address] Laser Beam Machine Operator: Haja Franz MD Blood, Urine MODERATE Abnormal NEG [facility] Comment on above: Performed By: #### C P, TSHX, DIGC, MG #### [facility] [address] [place] [address] [employer] Beam Machine Operator: Haja Franz MD Clarity (U) Clear Normal CLEAR [facility] Comment on above: Performed By: #### C P, TSHX, DIGC, MG #### [facility] [address] [place] [address] Laser Beam Machine Operator: Haja Franz MD Color (U) Yellow Normal YEL [facility] Comment on above: Performed By: #### C P, TSHX, DIGC, MG #### [facility] [address] [place] [address] Laser Beam Machine Operator: Haja Franz MD Glucose Ql (U) 2+ mg/dL Abnormal NEG [facility] Comment on above: Performed By: #### C P, TSHX, DIGC, MG #### [address] [address] Laser Beam Machine Operator: Haja Franz MD Ketones Ql (U) Negative Normal NEG [facility] Comment on above: Performed By: #### C P, TSHX, DIGC, MG #### [facility] [address] [place] [address] Laser Beam Machine Operator: Haja Franz MD Leukocyte esterase Test strip Ql (U) TRACE Abnormal NEG [facility] Comment on above: Performed By: #### C P, TSHX, DIGC, MG #### [facility] [address] [place] [address] [employer] Beam Machine Operator: Haja Franz MD Nitrite,Ur Negative Normal NEG [facility] Comment on above: Performed By: #### C P, TSHX, DIGC, MG #### [facility] [address] [place] [address] Laser Beam Machine Operator: Haja Franz MD PH,Ur 6.5 Normal 5.0-8.0 [facility] Comment on above: Performed By: #### C P, TSHX, DIGC, MG #### [address] [address] Laser Beam Machine Operator: Haja Franz MD Protein Ql (U) Negative Normal NEG [facility] Comment on above: Performed By: #### C P, TSHX, DIGC, MG #### [address] [address] Laser Beam Machine Operator: Haja Franz MD Spec. [place],Ur 1.009 Normal 1.005-1.030 [facility] Comment on above: Performed By: #### C P, TSHX, DIGC, MG #### [address] [address] Laser Beam Machine Operator: Haja Franz MD Urobilinogen,Ur Normal Normal 0.0-1.0 [facility] Comment on above: Performed By: #### C P, TSHX, DIGC, MG #### [address] [address] [employer] Be[employer] Machine Operator: Haja Franz MD Urinalysis,Microon 3 Bacteria None Normal NONE [facility] Comment on above: Performed By: #### C P, TSHX, DIGC, MG #### [address] [address] [employer] Operator: Haja Franz MD Casts None Normal 0-8 [facility] Comment on above: Result Comment: Refe rence range defined for non-centrifuged specimen. Performed By: #### C P, TSHX, DIGC, MG #### [address] [address] [employer] Operator: Haja Franz MD Epithelial cells LM Ql (Urine sed) 0 TO 2 Normal 0-5 [facility] Comment on above: Performed By: #### C P, TSHX, DIGC, MG #### [facility] [address] [place] [address] [employer] Machine Operator: Haja Franz MD Urine RBC's 20 TO 50 Normal 0-4 [facility] Comment on above: Result Comment: Refe rence range defined for non-centrifuged specimen. Performed By: #### C P, TSHX, DIGC, MG #### [facility] [address] [place] [address] [employer] Machine Operator: Haja Franz MD Urine WBC's 2 TO 5 Normal 0-5 [facility] Comment on above: Performed By: #### C P, TSHX, DIGC, MG #### [facility] [address] [place] [address] [employer] Machine Operator: Haja Franz MD Brain Natri. Peptideon 10-17 Natriuretic peptide B (Bld) [Mass/Vol] 3274 pg/mL High <300 [facility] Comment on above: Result Comment: An age-independent cutoff point of 300 pg/ml has a 98% negative predictive value excluding acute heart failure. Performed By: #### C P, TSHX, DIGC, MG #### [facility] [address] [place] [address] [employer] Operator: Haja Franz MD CBC with Diffon 10-17-2023 Abs. Basophil 0.00 k/uL Normal 0.0-0.2 [facility] Comment on above: Performed By: #### C P, TSHX, DIGC, MG #### [facility] [address] [place] [address] [employer] Machine Operator: Haja Franz MD Abs.Imm.Granulocyte 0.06 k/uL Normal 0.00-0.30 [facility] Comment on above: Performed By: #### C P, TSHX, DIGC, MG #### [facility] [address] [place] [address] [employer] Machine Operator: Haja Franz MD Abs.Neutrophil (Seg) 5.73 k/uL Normal 1.8-7.7 [facility] Comment on above: Performed By: #### C P, TSHX, DIGC, MG #### [facility] [address] [place] [address] [employer] Machine Operator: Haja Franz MD Basophils/100 WBC (Bld) 0 % Normal 0-2 [facility] Comment on above: Performed By: #### C P, TSHX, DIGC, MG #### [facility] [address] [place] [address] [employer] Machine Operator: Haja Franz MD Eosinophils (Bld) [#/Vol] 0.00 10*3/uL Normal 0.0-0.4 [facility] Comment on above: Performed By: #### C P, TSHX, DIGC, MG #### [facility] [address] [place] [address] [employer] Machine Operator: Haja Franz MD Eosinophils/100 WBC (Bld) 0 % Low 1-4 [facility] Comment on above: Performed By: #### C P, TSHX, DIGC, MG #### [facility] [address] [place] [address] [employer] Operator: Haja Franz MD Immature granulocytes/100 WBC (Bld) 1 % High 0 [facility] Comment on above: Performed By: #### C P, TSHX, DIGC, MG #### [facility] [address] [place] [address] [employer] Machine Operator: Haja Franz MD Lymphocytes (Bld) [#/Vol] 0.38 10*3/uL Low 1.0-4.8 [facility] Comment on above: Performed By: #### C P, TSHX, DIGC, MG #### [facility] [address] [place] [address] [employer] Operator: Haja Franz MD Lymphocytes/100 WBC (Bld) 6 % Low 24-44 [facility] Comment on above: Performed By: #### C P, TSHX, DIGC, MG #### [facility] [address] [place] [address] [employer] Operator: Haja Franz MD Monocytes (Bld) [#/Vol] 0.13 10*3/uL Normal 0.1-0.8 [facility] Comment on above: Performed By: #### C P, TSHX, DIGC, MG #### [facility] [address] [place] [address] [employer] Operator: Haja Franz MD Monocytes/100 WBC (Bld) 2 % Normal 1-7 [facility] Comment on above: Performed By: #### C P, TSHX, DIGC, MG #### [facility] [address] [place] [address] [employer] Machine Operator: Haja Franz MD Morphology Ace (Bld) [Interp] ANISOCYTOSIS PRESENT Normal [facility] Comment on above: Performed By: #### C P, TSHX, DIGC, MG #### [facility] [address] [place] [address] [employer] Operator: Haja Franz MD Neutrophil (Seg) 91 % High 36-66 [facility] Comment on above: Performed By: #### C P, TSHX, DIGC, MG #### [facility] [address] [place] [address] [employer] Operator: Haja Franz MD Erythrocyte distribution width (RBC) [Ratio] 16.3 % High 11.8-14.4 [facility] Comment on above: Performed By: #### C P, TSHX, DIGC, MG #### [address] [address] [employer] Operator: Haja Franz MD Hematocrit (Bld) [Volume fraction] 32.4 % Low 36.3-47.1 [facility] Comment on above: Performed By: #### C P, TSHX, DIGC, MG #### [address] [address] [employer] Operator: Haja Franz MD Hemoglobin (Bld) [Mass/Vol] 10.1 g/dL Low 11.9-15.1 [facility] Comment on above: Performed By: #### C P, TSHX, DIGC, MG #### [address] [address] [employer] Operator: Haja Franz MD MCH (RBC) [Entitic mass] 27.8 pg Normal 25.2-33.5 [facility] Comment on above: Performed By: #### C P, TSHX, DIGC, MG #### [address] [address] [employer] Operator: Haja Franz MD MCHC (RBC) [Mass/Vol] 31.2 g/dL Normal 28.4-34.8 [facility] Comment on above: Performed By: #### C P, TSHX, DIGC, MG #### [address] [address] [employer] Operator: Haja Franz MD MCV (RBC) [Entitic vol] 89.3 fL Normal 82.6-102.9 [facility] Comment on above: Performed By: #### C P, TSHX, DIGC, MG #### [address] [address] [employer] Machine Operator: Haja Franz MD NRBC Automated 0.0 per 100 WBC Normal 0.0 [facility] Comment on above: Performed By: #### C P, TSHX, DIGC, MG #### [facility] [address] [place] [id number] [employer] Machine Operator: Haja Franz MD Platelet mean volume (Bld) [Entitic vol] 11.1 fL Normal 8.1-13.5 [facility] Comment on above: Performed By: #### C P, TSHX, DIGC, MG #### [facility] [address] [place] [id number] [employer] Machine Operator: Haja Franz MD Platelets (Bld) [#/Vol] 316 10*3/uL Normal 138-453 [facility] Comment on above: Performed By: #### C P, TSHX, DIGC, MG #### [facility] [address] [place] [address] [id number] Laser Beam Machine Operator: Haja Franz MD RBC (Bld) [#/Vol] 3.63 10*6/uL Low 3.95-5.11 [facility] Comment on above: Performed By: #### C P, TSHX, DIGC, MG #### [facility] [address] [place] [address] [id number] [employer] Machine Operator: Haja Franz MD WBC (Bld) [#/Vol] 6.3 10*3/uL Normal 3.5-11.3 [facility] Comment on above: Performed By: #### C P, TSHX, DIGC, MG #### [email or web address] [address] [place] [address] [id number] Laser [employer]am Machine Operator: Haja Franz MD Calcium, Ionicon 10-17-2023 Calcium [Moles/Vol] 1.15 mmol/L Normal 1.13-1.33 [facility] Comment on above: Performed By: #### C P, TSHX, DIGC, MG #### [email or web address] [address] [place] [address] 46359 Laser Beam Machine Operator: Haja Franz MD Comp Metabolic Pr/rfx MGon 1 12-17-2022 Albumin [Mass/Vol] 2.9 g/dL Low 3.5-5.2 [facility] Comment on above: Performed By: #### C P, TSHX, DIGC, MG #### [facility] [address] [place] [address] 50975 Laser Beam Machine Operator: Haja Franz MD Albumin/Glob Ratio 0.8 Low 1.0-2.5 [facility] Comment on above: Performed By: #### C P, TSHX, DIGC, MG #### [facility] [address] [place] [address]20 Laser Beam Machine Operator: Haja Franz MD Alkaline Phos 217 U/L High 35-104 [facility] Comment on above: Performed By: #### C P, TSHX, DIGC, MG #### [facility] [address] [place] [address] 42280 Laser Beam Machine Operator: Haja Franz MD ALT [Catalytic activity/Vol] 36 U/L High 5-33 [facility] Comment on above: Performed By: #### C P, TSHX, DIGC, MG #### [facility] [address] [place] [address]606 Laser Beam Machine Operator: Haja Franz MD Anion gap [Moles/Vol] 12 mmol/L Normal 9-17 [facility] Comment on above: Performed By: #### C P, TSHX, DIGC, MG #### [facility] [address] [place] [address] [id number] Laser Be[employer] Machine Operator: Haja Franz MD AST [Catalytic activity/Vol] 23 U/L Normal <32 [facility] Comment on above: Performed By: #### C P, TSHX, DIGC, MG #### [facility] [address] [place] [address]303 Laser Beam Machine Operator: Haja Franz MD Bilirubin [Mass/Vol] 0.2 mg/dL Low 0.3-1.2 [facility] Comment on above: Performed By: #### C P, TSHX, DIGC, MG #### [facility] [place] [address] Laser Beam Machine Operator: Haja Franz MD Calcium [Mass/Vol] 8.5 mg/dL Low 8.6-10.4 [facility] Comment on above: Performed By: #### C P, TSHX, DIGC, MG #### [facility] [address] [place] [address] 92864 Laser Beam Machine Operator: Haja Franz MD Chloride [Moles/Vol] 96 mmol/L Low 98-107 [facility] Comment on above: Performed By: #### C P, TSHX, DIGC, MG #### [facility] [address] [place] [address] 61301 Laser Beam Machine Operator: Haja Franz MD CO2 [Moles/Vol] 23 mmol/L Normal 20-31 [facility] Comment on above: Performed By: #### C P, TSHX, DIGC, MG #### [facility] [address] [place] [address] 23200 Laser Beam Machine Operator: Haja Franz MD Creatinine [Mass/Vol] 2.0 mg/dL High 0.5-0.9 [facility] Comment on above: Performed By: #### C P, TSHX, DIGC, MG #### [facility] [address] [place] [address] 35961 Laser Beam Machine Operator: Haja Franz MD GFR/1.73 sq M.predicted among non-blacks MDRD (S/P/Bld) [Vol rate/Area] 29 mL/min/{1.73_m2} Low >60 [facility] Comment on above: Result Comment: These results [...] #### C P, TSHX, DIGC, MG #### [email or web address] [address] [place] [address] 98454 Laser Beam Machine Operator: Haja Franz MD Glucose [Mass/Vol] 317 mg/dL High 70-99 [facility] Comment on above: Performed By: #### C P, TSHX, DIGC, MG #### [facility] [address] [place] [address] 36410 Laser Beam Machine Operator: Haja Franz MD Potassium [Moles/Vol] 5.2 mmol/L Normal 3.7-5.3 [facility] Comment on above: Performed By: #### C P, TSHX, DIGC, MG #### [email or web address] [address] [place] [address] 63557 Laser Beam Machine Operator: Haja Franz MD Protein [Mass/Vol] 6.7 g/dL Normal 6.4-8.3 [facility] Comment on above: Performed By: #### C P, TSHX, DIGC, MG #### [email or web address] [address] [place] [address] 82809 Laser Beam Machine Operator: Haja Franz MD Sodium [Moles/Vol] 131 mmol/L Low 135-144 [facility] Comment on above: Performed By: #### C P, TSHX, DIGC, MG #### [email or web address] [address] [place] [address] 83584 Laser Beam Machine Operator: Haja Franz MD Urea nitrogen [Mass/Vol] 34 mg/dL High 6-20 [facility] Comment on above: Performed By: #### C P, TSHX, DIGC, MG #### [address] [address] Laser Beam Machine Operator: Haja Franz MD Comp Metabolic Profon 2022 Glucose [Mass/Vol] 442 mg/dL Critically high 70-99 [facility] Comment on above: Performed By: #### C P, TSHX, DIGC, MG #### [address] [address] Laser Beam Machine Operator: Haja Franz MD Albumin [Mass/Vol] 2.7 g/dL Low 3.5-5.2 [facility] Comment on above: Performed By: #### C P, TSHX, DIGC, MG #### [address] [address] Laser Beam Machine Operator: Haja Franz MD Albumin/Glob Ratio 0.8 Low 1.0-2.5 [facility] Comment on above: Performed By: #### C P, TSHX, DIGC, MG #### [address] [address] Laser Beam Machine Operator: Haja Franz MD Alkaline Phos 203 U/L High 35-104 [facility] Comment on above: Performed By: #### C P, TSHX, DIGC, MG #### [address] [address] Laser Beam Machine Operator: Haja Franz MD ALT [Catalytic activity/Vol] 32 U/L Normal 5-33 [facility] Comment on above: Performed By: #### C P, TSHX, DIGC, MG #### [address] [address] Laser Beam Machine Operator: Haja Franz MD Anion gap [Moles/Vol] 16 mmol/L Normal 9-17 [facility] Comment on above: Performed By: #### C P, TSHX, DIGC, MG #### [address] [address] Laser Beam Machine Operator: Haja Franz MD AST [Catalytic activity/Vol] 22 U/L Normal <32 [facility] Comment on above: Performed By: #### C P, TSHX, DIGC, MG #### [facility] [address] [place] [address] 23431 Laser Beam Machine Operator: Haja Franz MD Bilirubin [Mass/Vol] 0.3 mg/dL Normal 0.3-1.2 [facility] Comment on above: Performed By: #### C P, TSHX, DIGC, MG #### [facility] [address] [place] [address] 53695 Laser Beam Machine Operator: Haja Franz MD Calcium [Mass/Vol] 8.4 mg/dL Low 8.6-10.4 [facility] Comment on above: Performed By: #### C P, TSHX, DIGC, MG #### [facility] [address] [place] [address] 64482 Laser Beam Machine Operator: Haja Franz MD Chloride [Moles/Vol] 95 mmol/L Low 98-107 [facility] Comment on above: Performed By: #### C P, TSHX, DIGC, MG #### [facility] [address] [place] [address] 71317 Laser Beam Machine Operator: Haja Franz MD CO2 [Moles/Vol] 18 mmol/L Low 20-31 [facility] Comment on above: Performed By: #### C P, TSHX, DIGC, MG #### [facility] [address] [place] [address] 84846 Laser Beam Machine Operator: Haja Franz MD Creatinine [Mass/Vol] 2.1 mg/dL High 0.5-0.9 [facility] Comment on above: Performed By: #### C P, TSHX, DIGC, MG #### [facility] [address] [place] [address] [phone] Laser Beam Machine Operator: Haja Franz MD GFR/1.73 sq M.predicted among non-blacks MDRD (S/P/Bld) [Vol rate/Area] 27 mL/min/{1.73_m2} Low >60 [facility] Comment on above: Result Comment: These results [...] #### C P, TSHX, DIGC, MG #### [email or web address] [address] [place] [address] 29996 Laser Beam Machine Operator: Haja Franz MD Potassium [Moles/Vol] 5.3 mmol/L Normal 3.7-5.3 [facility] Comment on above: Performed By: #### C P, TSHX, DIGC, MG #### [email or web address] [address] [place] [address] [phone] Laser Beam Machine Operator: Haja Franz MD Protein [Mass/Vol] 6.3 g/dL Low 6.4-8.3 [facility] Comment on above: Performed By: #### C P, TSHX, DIGC, MG #### [facility] [address] [place] [address] 87894 Laser Beam Machine Operator: Haja Franz MD Sodium [Moles/Vol] 129 mmol/L Low 135-144 [facility] Comment on above: Performed By: #### C P, TSHX, DIGC, MG #### [facility] [address] [place] [address] 84977 Laser Beam Machine Operator: Haja Franz MD Urea nitrogen [Mass/Vol] 35 mg/dL High 6-20 [facility] Comment on above: Performed By: #### C P, TSHX, DIGC, MG #### [facility] [address] [place] [address] [phone] Laser Beam Machine Operator: Haja Franz MD D-Dimer Teston 10-17-2023 D-Dimer Test 0.95 ug/mL FEU High 0.00-0.57 [facility] Comment on above: Result Comment: When [...] patients with distal DVT. Performed By: #### C P, TSHX, DIGC, MG #### [facility] [address] [place] [address] [phone] Laser Beam Machine Operator: Haja Franz MD Digoxinon 10-17-2023 Digoxin [Mass/Vol] 1.8 ng/mL Normal 0.5-2.0 [facility] Comment on above: Result Comment: Digoxin Reference Range: Heart Failure 0.5-0.9 Atrial Fibrillation 0.8-2.0 Performed By: #### C P, TSHX, DIGC, MG #### [facility] [address] [place] [address] [phone] Laser Beam Machine Operator: Haja Franz MD Magnesiumon 10-17-2023 Magnesium [Mass/Vol] 2.1 mg/dL Normal 1.6-2.6 [facility] Comment on above: Performed By: #### C P, TSHX, DIGC, MG #### [address] [phone] Laser Beam Machine Operator: Haja Franz MD PTon 10-17-2023 INR Coag (PPP) [Relative time] 1.8 {INR} Normal [facility] Comment on above: Result Comment: Therapeutic Range: Moderate Anticoagulant Intensity: INR = 2.0-3.0 High Anticoagulant Intensity: INR = 2.5-3.5 Performed By: #### Dann Kaufman BMP #### [place] [address] Laser Beam Machine Operator: Haja Franz MD PT Coag (PPP) [Time] 20.8 s High 11.7-14.9 [facility] Comment on above: Performed By: #### Dann Kaufman BMP #### [place] [address] Laser Beam Machine Operator: Haja Franz MD Retic Counton 10-17-2023 Absolute Retic 0.080 M/uL Normal 0.030-0.080 [facility] Comment on above: Performed By: #### C P, TSHX, DIGC, MG #### [facility] [address] [place] [address] 51464 Laser Beam Machine Operator: Haja Franz MD IRF 21.7 % High 2.7-18.3 [facility] Comment on above: Performed By: #### C P, TSHX, DIGC, MG #### [facility] [address] [place] [address] 17429 Laser Beam Machine Operator: Haja Franz MD Retic Count 2.2 % High 0.5-1.9 [facility] Comment on above: Performed By: #### C P, TSHX, DIGC, MG #### [facility] [address] [place] [address] Laser Beam Machine Operator: Haja Franz MD Retic Hemoglobin 28.6 pg Normal 28.2-35.7 [facility] Comment on above: Performed By: #### C P, TSHX, DIGC, MG #### [email or web address] [address] [place], [place] [phone] Laser Beam Machine Operator: Haja Franz MD TSH w/reflex to FT4on 2022 Thyroid Stim. Horm. 0.61 uIU/mL Normal 0.30-5.00 [facility] Comment on above: Performed By: #### C P, TSHX, DIGC, MG #### [facility] [address] [place] [address] 39263 Laser Beam Machine Operator: Haja Franz MD XR CHEST PORTABLEon 10-17-20 [...] Cale Haney MD 10/17/23 Final result Normal [facility] CT SINUSES WO CONon 03-26-20 CT SINUSES [...] by: LAZARUS SNOW Date: 2023-03-26 14:07 Normal [facility] CT LUNG CANCER SCREENINGon 0 02-21-2023 [...] LAZARUS SNOW Date: 2023-02-21 09:55 Normal [facility] CT SINUSES WO CONon 02-22-20 23 [...] LAZARUS SNOW Date: 2023-02-21 09:39 Normal [facility] JACQUES by IFAon 02-05-2023 Antinuclear Antibodies, IFA Negative Normal [facility] Comment on above: Result Comment: Nega tive <1:80 Borderline 1:80 Positive >1:80 ICAP nomenclature: AC-0 For more information about Hep-2 cell patterns use ANApatterns.org, the official website for the International Consensus on Antinuclear Antibody (JACQUES) Patterns (ICAP). Performed By: #### C VDTBH #### [facility] [address] [place] [address] Dr. Efrain Zuñiga ANTISTREPTOLYSIN O AB (ASO)o n 02-02-2023 Antistreptolysin O Ab 36.5 IU/mL Normal 0.0-200.0 [facility] Comment on above: Performed By: #### A SOAB #### [facility] [address] [address] [address] Efrain Zuñiga INSULINon 02-02-2023 Insulin 15.7 uIU/mL Normal 2.6-24.9 [facility] Comment on above: Performed By: #### P OCGLUC #### [facility] [address] [place] [address] Dr. Efrain Zuñiga RHEUMATOID FACTORon 02-03-20 23 RA Latex Turbid. <10.0 Normal <14.[address] [facility] Comment on above: Performed By: #### R F #### [facility] [address] [place] [address] Dr. Efrain Zuñiga XR SINUSES 3 VIEWS [...] LAZARUS SNOW Date: 2023-02-02 06:55 Normal [facility] CBC AUTO DIFFon 02-01-2023 BASO # 0.0 103/ul Normal 0.0-0.1 [facility] Comment on above: Performed By: #### A SOAB #### [facility] [address] [place] [address] Dr. Efrain Zuñiga Basophils/100 WBC (Bld) 0.4 % Normal 0.2-2.0 [facility] Comment on above: Performed By: #### A SOAB #### [facility] [address] [place] [address] Dr. Efrain Zuñiga EO # 0.1 103/ul Normal 0.0-0.7 [facility] Comment on above: Performed By: #### A SOAB #### [facility] [address] [place] [address] Dr. Efrain Zuñiga Eosinophils/100 WBC (Bld) 1.2 % Normal 0.9-7.0 [facility] Comment on above: Performed By: #### A SOAB #### [facility] [address] [place] [address] Dr. Efrain Zuñiga Erythrocyte distribution width (RBC) [Ratio] 14.6 % Normal 11.0-15.0 [facility] Comment on above: Performed By: #### A SOAB #### [facility] [address] [place] [address] Dr. Efrain Zuñiga Hematocrit (Bld) [Volume fraction] 35.9 % Critically low 36.0-48.0 [facility] Comment on above: Performed By: #### A SOAB #### [facility] [address] [place] [address] Dr. Efrain Zuñiga Hemoglobin (Bld) [Mass/Vol] 11.9 g/dL Critically low 12.0-16.0 [facility] Comment on above: Performed By: #### A SOAB #### [facility] [address] [place] [address] Dr. Efrain Zuñiga IG # 0.09 10e3/ul Critically high 0.00-0.03 [facility] Comment on above: Performed By: #### A SOAB #### [facility] [address] [place] [address] Dr. Efrain Zuñiga IG % 0.9 % Critically high 0.0-0.5 [facility] Comment on above: Performed By: #### A SOAB #### [facility] [address] [place] [address] Dr. Efrain Zuñiga LYMPH # 2.7 103/ul Normal 1.2-3.8 [facility] Comment on above: Performed By: #### A SOAB #### [facility] [address] [place] [address] Dr. Efrain Zuñiga Lymphocytes/100 WBC (Bld) 26.3 % Normal 20.5-60.0 [facility] Comment on above: Performed By: #### A SOAB #### [facility] [address] [place] [address] Dr. Efrain Zuñiga MANUAL DIFF REQ NO Normal [facility] Comment on above: Performed By: #### A SOAB #### [facility] [address] [place] [address] Dr. Efrain Zuñiga MCH (RBC) [Entitic mass] 29.8 pg Normal 26.7-34.0 [facility] Comment on above: Performed By: #### A SOAB #### [facility] [address] [place] [address] Dr. Efrain Zuñiga MCHC (RBC) [Mass/Vol] 33.1 g/dL Normal 29.9-35.2 [facility] Comment on above: Performed By: #### A SOAB #### [facility] [address] [place] [address] Dr. Efrain Zuñiga MCV (RBC) [Entitic vol] 90.0 fL Normal 81.0-99.0 [facility] Comment on above: Performed By: #### A SOAB #### [facility] [address] [place] [address] Dr. Efrain Zuñiga MONO # 0.7 103/ul Normal 0.3-0.8 [facility] Comment on above: Performed By: #### A SOAB #### [facility] [address] [place] [address] Dr. Efrain Zuñiga Monocytes/100 WBC (Bld) 6.7 % Normal 1.7-12.0 [facility] Comment on above: Performed By: #### A SOAB #### [facility] [address] [place] [address] Dr. Efrain Zuñiga NEUT # 6.6 103/ul Critically high 1.4-6.5 [facility] Comment on above: Performed By: #### A SOAB #### [facility] [address] [place] [address] Dr. Efrain Zuñiga Neutrophils/100 WBC (Bld) 64.5 % Normal 43.0-75.0 [facility] Comment on above: Performed By: #### A SOAB #### [facility] [address] [place] [address] Dr. Efrain Zuñiga Platelet mean volume (Bld) [Entitic vol] 11.3 fL Normal 9.5-13.5 [facility] Comment on above: Performed By: #### A SOAB #### [facility] [address] [place] [address] Dr. Efrain Zuñiga PLT 190 103/ul Normal 150-450 [facility] Comment on above: Performed By: #### A SOAB #### [facility] [address] [address] [address] Efrain Zuñiga RBC 3.99 106/ul Critically low 4.20-5.40 [facility] Comment on above: Performed By: #### A SOAB #### [facility] [address] [place] [address] Dr. Efrain Zuñiga WBC 10.2 103/ul Normal 4.0-11.0 [facility] Comment on above: Performed By: #### A SOAB #### [facility] [address] [place] [address] Dr. Efrain Zuñiga CRPon 02-01-2023 CRP [Mass/Vol] mg/L Normal <=1.0 [facility] Comment on above: Performed By: #### R F #### [facility] [address] [place] [address] Dr. Efrain Zuñiga FREE THYROXINE INDEX T7on FTI 2.31 Normal 1.30-4.50 [facility] Comment on above: Performed By: #### R F #### [facility] [address] [place] [address] Dr. Efrain Zuñiga T3U 33.0 % Normal 30.0-39.0 [facility] Comment on above: Performed By: #### R F #### [facility] [address] [place] [address] Dr. Efrain Zuñiga T4 [Mass/Vol] 7.00 ug/dL Normal 4.80-13.90 [facility] Comment on above: Performed By: #### R F #### [facility] [address] [place] [address] Dr. Efrain Zuñiga GLYCOHEMOGLOBIN A1Con 2022 ADA RECOMMENDATION SEE BELOW Normal [facility] Comment on above: Result Comment: ADA RECOMMENDED LIMIT 4.0 - 6.0 ADA THERAPEUTIC TARGET < 7.0 ACTION SUGGESTED > 7.0 Performed By: #### P OCGLUC #### [facility] [address] [address] [address] Efrain Zuñiga Glucose [Mass/Vol] 186 mg/dL Normal [facility] Comment on above: Performed By: #### P OCGLUC #### [facility] [address] [address] [address] Efrain Zuñiga HbA1c (Bld) [Mass fraction] 8.1 % Critically high 4.5-6.2 [facility] Comment on above: Performed By: #### P OCGLUC #### [facility] [address] [place] [address] Dr. Efrain Zuñiga IRONon 02-01-2023 Iron [Mass/Vol] 67.0 ug/dL Normal 50.0-170.0 [facility] Comment on above: Performed By: #### C VDTBH #### [facility] [address] [place] [address] Dr. Efrain Zuñiga LIPID PROFILEon 02-01-2023 CHOL-HDL RATIO NORM SEE BELOW Normal [facility] Comment on above: Result Comment: 3.3 - 4.4 LOW RISK 4.4 - 7.1 AVERAGE RISK 7.1 - 11.0 MODERATE RISK >11.0 HIGH RISK Performed By: #### R F #### [facility] [address] [place] [address] Dr. Efrain Zuñiga Cholesterol [Mass/Vol] 104 mg/dL Normal <=200 [facility] Comment on above: Performed By: #### R F #### [facility] [address] [place] [address] Dr. Efrain Zuñiga Cholesterol in HDL [Mass/Vol] 28 mg/dL Critically low 40-60 [facility] Comment on above: Performed By: #### R F #### [facility] [address] [place] [address] Dr. Efrain Zuñiga Cholesterol in LDL [Mass/Vol] 52.6 mg/dL Normal [facility] Comment on above: Performed By: #### R F #### [facility] [address] [address] [address] Efrain Zuñiga Cholesterol.total/Ch olesterol in HDL [Mass ratio] 3.7 {ratio} Normal [facility] Comment on above: Performed By: #### R F #### [facility] [address] [address] [address] Efrain Zuñiga HDL NORMAL > or = 60 mg/dl - LO W CARDIOVASCULAR RISK <40 mg/dl - HIGH CARDIOVASCULAR RISK Normal [facility] Comment on above: Performed By: #### R F #### [facility] [address] [place] [address] Dr. Efrain Zuñiga LDL CALC NORMAL SEE BELOW Normal [facility] Comment on above: Result Comment: <100 mg/dl OPTIMAL 100 - 129 mg/dl NEAR OR ABOVE OPTIMAL 130 - 159 mg/dl BORDERLINE HIGH 160 - 189 mg/dl HIGH >190 mg/dl VERY HIGH Performed By: #### R F #### [facility] [address] [place] [address] Dr. Efrain Zuñiga Triglyceride [Mass/Vol] 117 mg/dL Normal <=150 [facility] Comment on above: Performed By: #### R F #### [facility] [address] [place] [address] Dr. Efrain Zuñiga VLDL CALC 23.4 mg/dL Normal [facility] Comment on above: Performed By: #### R F #### [facility] [address] [place] [address] Dr. Efrain Zuñiga PROF 14(COMP METB)on 023 Albumin [Mass/Vol] 3.1 g/dL Critically low 3.4-5.0 [facility] Comment on above: Performed By: #### C RP, CMP, TSH, T7, LIPID, URIC #### [facility] [address] [place] [address] Dr. Efrain Zuñiga Albumin/Globulin [Mass ratio] 0.9 {ratio} Normal [facility] Comment on above: Performed By: #### C RP, CMP, TSH, T7, LIPID, URIC #### [facility] [address] [address] [address] Efrain Zuñiga ALP [Catalytic activity/Vol] 132 U/L Critically high 46-116 [facility] Comment on above: Performed By: #### C RP, CMP, TSH, T7, LIPID, URIC #### [facility] [address] [place] [address] Dr. Efrain Zuñiga ALT [Catalytic activity/Vol] 40 U/L Normal 14-59 [facility] Comment on above: Performed By: #### C RP, CMP, TSH, T7, LIPID, URIC #### [facility] [address] [place] [address] Dr. Efrain Zuñiga Anion gap [Moles/Vol] 14.6 mmol/L Normal [facility] Comment on above: Performed By: #### C RP, CMP, TSH, T7, LIPID, URIC #### [facility] [address] [place] [address] Dr. Efrain Zuñiga AST [Catalytic activity/Vol] 18 U/L Normal 15-37 [facility] Comment on above: Performed By: #### C RP, CMP, TSH, T7, LIPID, URIC #### [facility] [address] [place] [address] Dr. Efrain Zuñiga Bilirubin [Mass/Vol] 0.5 mg/dL Normal 0.2-1.0 [facility] Comment on above: Performed By: #### C RP, CMP, TSH, T7, LIPID, URIC #### [facility] [address] [place] [address] Dr. Efrain Zuñiga Calcium [Mass/Vol] 8.8 mg/dL Normal 8.5-10.1 [facility] Comment on above: Performed By: #### C RP, CMP, TSH, T7, LIPID, URIC #### [facility] [address] [place] [address] Dr. Efrain Zuñiga Chloride [Moles/Vol] 106 mmol/L Normal 98-107 [facility] Comment on above: Performed By: #### C RP, CMP, TSH, T7, LIPID, URIC #### [facility] [address] [place] [address] Dr. Efrain Zuñiga CO2 [Moles/Vol] 24.2 mmol/L Normal 21.0-32.0 [facility] Comment on above: Performed By: #### C RP, CMP, TSH, T7, LIPID, URIC #### [facility] [address] [place] [address] Dr. Efrain Zuñiga Creatinine [Mass/Vol] 1.08 mg/dL Critically high 0.55-1.02 [facility] Comment on above: Performed By: #### C RP, CMP, TSH, T7, LIPID, URIC #### [facility] [address] [place] [address] Dr. Efrain Zuñiga EGFR-AF SWEDISH >60 Normal >=60 [facility] Comment on above: Performed By: #### C RP, CMP, TSH, T7, LIPID, URIC #### [facility] [address] [place] [address] Dr. Efrain Zuñiga EGFR-NON AF SWEDISH 52 mL/min/1.73m2 Critically low >=60 [facility] Comment on above: Performed By: #### C RP, CMP, TSH, T7, LIPID, URIC #### [facility] [address] [place] [address] Dr. Efrain Zuñiga Globulin (S) [Mass/Vol] 3.6 g/dL Normal [facility] Comment on above: Performed By: #### C RP, CMP, TSH, T7, LIPID, URIC #### [facility] [address] [place] [address] Dr. Efrain Zuñiga Glucose [Mass/Vol] 184 mg/dL Critically high 74-106 [facility] Comment on above: Performed By: #### C RP, CMP, TSH, T7, LIPID, URIC #### [facility] [address] [place] [address] Dr. Efrain Zuñiga Potassium [Moles/Vol] 4.8 mmol/L Normal 3.5-5.1 [facility] Comment on above: Performed By: #### C RP, CMP, TSH, T7, LIPID, URIC #### [facility] [address] [place] [address] Dr. Efrain Zuñiga Protein [Mass/Vol] 6.7 g/dL Normal 6.4-8.2 [facility] Comment on above: Performed By: #### C RP, CMP, TSH, T7, LIPID, URIC #### [facility] [address] [place] [address] Dr. Efrain Zuñiga Sodium [Moles/Vol] 140 mmol/L Normal 136-145 [facility] Comment on above: Performed By: #### C RP, CMP, TSH, T7, LIPID, URIC #### [facility] [address] [place] [address] Dr. Efrain Zuñiga Urea nitrogen [Mass/Vol] 32.0 mg/dL Critically high 7.0-18.0 [facility] Comment on above: Performed By: #### C RP, CMP, TSH, T7, LIPID, URIC #### [facility] [address] [place] [address] Dr. Efrain Zuñiga Urea nitrogen/Creatinine [Mass ratio] 29.6 mg/mg Normal [facility] Comment on above: Performed By: #### C RP, CMP, TSH, T7, LIPID, URIC #### [facility] [address] [place] [address] Dr. Efrain Zuñiga TSHon 02-01-2023 TSH 0.495 uIU/mL Normal 0.358-3.740 [facility] Comment on above: Performed By: #### C RP, CMP, TSH, T7, LIPID, URIC #### [facility] [address] [place] [address] Dr. Efrain Zuñiga URIC ACID SERUMon 02-01-2023 Urate [Mass/Vol] 7.6 mg/dL Critically high 2.6-6.0 [facility] Comment on above: Performed By: #### R F #### [facility] [address] [place] [address] Dr. Efrain Zuñiga Covid-19 PCR (CVDTB)on SARS-CoV-2 (COVID-19) RNA ASHLEIGH+probe Ql (Unsp spec) Not detected Normal NOT DETECTED [facility] Comment on above: Result Comment: This test is not yet approved or cleared by the [place] FDA. When there are no FDA-approved or cleared tests available, and other criteria are met, FDA can make tests available under an emergency access mechanism called an Emergency Use Authorization (EUA). The EUA for this test is supported by the [employer] of Health and Human Service's (HHS's) declaration [...] consistent with SARS-CoV-2. Performed By: #### C VDTBH #### [facility] [address] [place] [address] Dr. Efrain Zuñiga INFLUENZA A AND B AGon 12-[address] [facility]OW Normal [facility] Comment on above: Result Comment: Nega tive for Flu A protein angiten. Infection due to Flu A cannot be ruled out. Flu A angiten in the sample may be below the detection limit of the test. Performed By: #### A SOAB #### [facility] [address] [place] [address] Dr. Efrain Zuñiga INFLUBNEG SEE BELOW Normal [facility] Comment on above: Result Comment: Nega tive for Flu B protein antigen. Infection due to Flu B cannot be ruled out. Flu B antigen in the sample may be below the detection limit of the test. Performed By: #### A SOAB #### [facility] [address] [place] [address] Dr. Efrain Zuñiga INFLUENZA A AG Negative Normal NEGATIVE SEE COMMENT [facility] Comment on above: Performed By: #### A SOAB #### [facility] [address] [place] [address] Dr. Efrain Zuñiga INFLUENZA B AG Negative Normal NEGATIVE SEE COMMENT [facility] Comment on above: Performed By: #### A SOAB #### [facility] [address] [address] [address] Efrain Zuñiga 29on 10-09-2022 29 Addended by: POPEYE KAUFFMAN on: 10/11/2022 09:39 AM Modules accepted: Level of Service Normal [facility] Consulton 10-09-2022 Consult [id number] Dorothy Faria 1965 F Date Provider Department Center 10/09/2022 3720-POPEYE KAUFFMAN [facility] SURG Second Fl Chart Close Cosign Accepted by: POPEYE KAUFFMAN[[id number]] Chart Close Cosign Accepted on: SunOct 11, 2022 9:51 AM No family history on file Level of Service:14636 [place] OFFICE CONSULTATION NEW/ESTAB PATIENT 40 MIN Reason [...] has tried PT, but did not help. Normal [facility] Ambulatory Visit Summaryon 1 12-04-2021 Ambulatory Visit [...] Smoker SVT (supraventricular tachycardia) Ventral hernia Normal [facility] General Surgery Office/Clini c Noteon 10-04-2022 General [...] 09/01/2022 Family History Patient was adopted Normal [facility] Comment on above: Result Comment: Elec tronically Signed By: KOSTA BRIONES, Nathan Gerber\jenifer\Date and Time Signed: 10/04/22 17:30 EST Facesheeton 09-04-2022 Facesheet [id number]: 127 Normal [facility] MRI LSPINE WO CONon 08-28-20 MRI [...] MARIA LUISA RAMIREZ Date: 2022-08-28 08:29 Normal [facility] Physician Referralon 022 Physician Referral [id number]: 127 Normal [facility] Physician Referralon 022 Physician Referral [id number]: 127 Normal [facility] Activated clotting timeon Activated Clotting Time 369 High [facility] Interpretation and review of laboratory results Abnormal [facility] CHLORIDE (POC)on 05-15-2022 Chloride [Moles/Vol] 102 mmol/L 98 - 10 7 mmol/L [facility] Catheterization and angiogra phy procedure details panelon 05-15-2022 [facility] Work Phone: Creatinine W/GFR Point of Ca reon 05-15-2022 Creatinine [Mass/Vol] 0.77 mg/dL 0.51 - 1.19 mg/dL [facility] GFR Non- >60 >60 mL/min [facility] GFR/1.73 sq M.predicted MDRD (S/P/Bld) [Vol rate/Area] mL/min/{1.73_m2} >60 mL/min [facility] GFR/1.73 sq M.predicted MDRD (S/P/Bld) [Vol rate/Area] [facility] Comment on above: Average GFR for 50-5 9 years old: 93 mL/min/1.73sq m Chronic Kidney Disease: <60 mL/min/1.73sq m Kidney failure: <15 mL/min/1.73sq m eGFR calculated using average adult body mass. Additional eGFR calculator available at: http://www.[employer]/multiple_crcl_2012.htm Hemoglobin and hematocrit, b loodon 05-15-2022 Hematocrit (Bld) [Volume fraction] 44 % 36 - 46 % [facility] Hemoglobin (Bld) [Mass/Vol] 14.9 g/dL 12.0 - 16.0 g/dL [facility] No Panel Informationon 05-15 Interpretation and review of laboratory results Abnormal [facility] POCT Glucoseon 05-15-2022 Glucose [Mass/Vol] 314 mg/dL High 74 - 100 mg/dL [facility] POCT urea (BUN)on 05-15-2022 Urea nitrogen [Mass/Vol] 14 mg/dL 8 - 26 mg/dL [facility] POTASSIUM (POC)on 05-15-2022 Potassium [Moles/Vol] 4.4 mmol/L 3.5 - 4.5 mmol/L [facility] Platelet Counton 05-15-2022 Platelets (Bld) [#/Vol] 206 10*3/uL [facility] SODIUM (POC)on 05-15-2022 Sodium [Moles/Vol] 136 mmol/L Low 138 - 146 mmol/L [facility] CBC AUTO DIFFon 04-28-2022 BASO # 0.1 103/ul Normal 0.0-0.1 [facility] Comment on above: Performed By: #### P OCGLUC #### [facility] [address] [address] [address] Efrain Zuñiga Basophils/100 WBC (Bld) 0.6 % Normal 0.2-2.0 [facility] Comment on above: Performed By: #### P OCGLUC #### [facility] [address] [place] [address] Dr. Efrain Zuñiga EO # 0.1 103/ul Normal 0.0-0.7 [facility] Comment on above: Performed By: #### P OCGLUC #### [facility] [address] [place] [address] Dr. Efrain Zuñiga Eosinophils/100 WBC (Bld) 1.5 % Normal 0.9-7.0 [facility] Comment on above: Performed By: #### P OCGLUC #### [facility] [address] [place] [address] Dr. Efrain Zuñiga Erythrocyte distribution width (RBC) [Ratio] 15.1 % Critically high 11.0-15.0 [facility] Comment on above: Performed By: #### P OCGLUC #### [facility] [address] [place] [address] Dr. Efrain Zuñiga Hematocrit (Bld) [Volume fraction] 41.3 % Normal 36.0-48.0 [facility] Comment on above: Performed By: #### P OCGLUC #### [facility] [address] [place] [address] Dr. Efrain Zuñiga Hemoglobin (Bld) [Mass/Vol] 13.2 g/dL Normal 12.0-16.0 [facility] Comment on above: Performed By: #### P OCGLUC #### [facility] [address] [place] [address] Dr. Efrain Zuñiga IG # 0.05 10e3/ul Critically high 0.00-0.03 [facility] Comment on above: Performed By: #### P OCGLUC #### [facility] [address] [place] [address] Dr. Efrain Zuñiga IG % 0.6 % Critically high 0.0-0.5 [facility] Comment on above: Performed By: #### P OCGLUC #### [facility] [address] [place] [address] Dr. Efrain Zuñiga LYMPH # 1.5 103/ul Normal 1.2-3.8 [facility] Comment on above: Performed By: #### P OCGLUC #### [facility] [address] [place] [address] Dr. Efrain Zuñiga Lymphocytes/100 WBC (Bld) 17.3 % Critically low 20.5-60.0 [facility] Comment on above: Performed By: #### P OCGLUC #### [facility] [address] [place] [address] Dr. Efrain Zuñiga MANUAL DIFF REQ NO Normal [facility] Comment on above: Performed By: #### P OCGLUC #### [facility] [address] [place] [address] Dr. Efrain Zuñiga MCH (RBC) [Entitic mass] 29.9 pg Normal 26.7-34.0 [facility] Comment on above: Performed By: #### P OCGLUC #### [facility] [address] [place] [address] Dr. Efrain Zuñiga MCHC (RBC) [Mass/Vol] 32.0 g/dL Normal 29.9-35.2 [facility] Comment on above: Performed By: #### P OCGLUC #### [facility] [address] [place] [address] Dr. Efrain Zuñiga MCV (RBC) [Entitic vol] 93.4 fL Normal 81.0-99.0 [facility] Comment on above: Performed By: #### P OCGLUC #### [facility] [address] [place] [address] Dr. Efrain Zuñiga MONO # 0.7 103/ul Normal 0.3-0.8 [facility] Comment on above: Performed By: #### P OCGLUC #### [facility] [address] [place] [address] Dr. Efrain Zuñiga Monocytes/100 WBC (Bld) 8.0 % Normal 1.7-12.0 [facility] Comment on above: Performed By: #### P OCGLUC #### [facility] [address] [address] [address] Efrain Zuñiga NEUT # 6.4 103/ul Normal 1.4-6.5 [facility] Comment on above: Performed By: #### P OCGLUC #### [facility] [address] [address] [address] Efrain Zuñiga Neutrophils/100 WBC (Bld) 72.0 % Normal 43.0-75.0 [facility] Comment on above: Performed By: #### P OCGLUC #### [facility] [address] [place] [address] Dr. Efrain Zuñiga Platelet mean volume (Bld) [Entitic vol] 11.8 fL Normal 9.5-13.5 [facility] Comment on above: Performed By: #### P OCGLUC #### [facility] [address] [place] [address] Dr. Efrain Zuñiga PLT 174 103/ul Normal 150-450 [facility] Comment on above: Performed By: #### P OCGLUC #### [facility] [address] [place] [address] Dr. Efrain Zuñiga RBC 4.42 106/ul Normal 4.20-5.40 [facility] Comment on above: Performed By: #### P OCGLUC #### [facility] [address] [place] [address] Dr. Efrain Zuñiga WBC 8.9 103/ul Normal 4.0-11.0 [facility] Comment on above: Performed By: #### P OCGLUC #### [facility] [address] [address] [address] Efrain Zuñiga POINT OF CARE GLUCOSEon Glucose [Mass/Vol] 371 mg/dL Critically high 74-106 [facility] Comment on above: Performed By: #### P OCGLUC #### [facility] [address] [address] [address] Efrain Zuñiga Glucose [Mass/Vol] 214 mg/dL Critically high 74-106 [facility] Comment on above: Performed By: #### P OCGLUC #### [facility] [address] [place] [address] Dr. Efrain Zuñiga PROF 14(COMP METB)on 022 Albumin [Mass/Vol] 2.8 g/dL Critically low 3.4-5.0 [facility] Comment on above: Performed By: #### R F #### [facility] [address] [place] [address] Dr. Efrain Zuñiga Albumin/Globulin [Mass ratio] 0.8 {ratio} Normal [facility] Comment on above: Performed By: #### R F #### [facility] [address] [place] [address] Dr. Efrain Zuñiga ALP [Catalytic activity/Vol] 121 U/L Critically high 46-116 [facility] Comment on above: Performed By: #### R F #### [facility] [address] [place] [address] Dr. Efrain Zuñiga ALT [Catalytic activity/Vol] 54 U/L Normal 14-59 [facility] Comment on above: Performed By: #### R F #### [facility] [address] [place] [address] Dr. Efrain Zuñiga Anion gap [Moles/Vol] 13.7 mmol/L Normal [facility] Comment on above: Performed By: #### R F #### [facility] [address] [place] [address] Dr. Efrain Zuñiga AST [Catalytic activity/Vol] 45 U/L Critically high 15-37 [facility] Comment on above: Performed By: #### R F #### [facility] [address] [place] [address] Dr. Efrain Zuñiga Bilirubin [Mass/Vol] 0.9 mg/dL Normal 0.2-1.0 [facility] Comment on above: Performed By: #### R F #### [facility] [address] [place] [address] Dr. Efrain Zuñiga Calcium [Mass/Vol] 8.5 mg/dL Normal 8.5-10.1 [facility] Comment on above: Performed By: #### R F #### [facility] [address] [address] [address] Efrain Zuñiga Chloride [Moles/Vol] 103 mmol/L Normal 98-107 [facility] Comment on above: Performed By: #### R F #### [facility] [address] [place] [address] Dr. Efrain Zuñiga CO2 [Moles/Vol] 26.4 mmol/L Normal 21.0-32.0 [facility] Comment on above: Performed By: #### R F #### [facility] [address] [place] [address] Dr. Efrain Zuñiga Creatinine [Mass/Vol] 0.94 mg/dL Normal 0.55-1.02 [facility] Comment on above: Performed By: #### R F #### [facility] [address] [place] [address] Dr. Efrain Zuñiga EGFR-AF SWEDISH >60 Normal >=60 [facility] Comment on above: Performed By: #### R F #### [facility] [address] [place] [address] Dr. Efrain Zuñiga EGFR-NON AF SWEDISH >60 Normal >=60 [facility] Comment on above: Performed By: #### R F #### [facility] [address] [place] [address] Dr. Efrain Zuñiga Globulin (S) [Mass/Vol] 3.5 g/dL Normal [facility] Comment on above: Performed By: #### R F #### [facility] [address] [place] [address] Dr. Efrain Zuñiga Glucose [Mass/Vol] 243 mg/dL Critically high 74-106 [facility] Comment on above: Performed By: #### R F #### [facility] [address] [place] [address] Dr. Efrain Zuñiga Potassium [Moles/Vol] 4.1 mmol/L Normal 3.5-5.1 [facility] Comment on above: Performed By: #### R F #### [facility] [address] [place], [place] [address] Dr. Efrain Zuñiga Protein [Mass/Vol] 6.3 g/dL Critically low 6.4-8.2 [facility] Comment on above: Performed By: #### R F #### [facility] [address] [place], [place] [address] Dr. Efrain Zuñiga Sodium [Moles/Vol] 139 mmol/L Normal 136-145 [facility] Comment on above: Performed By: #### R F #### [facility] [address] [place], [place] [address] Dr. Efrain Zuñiga Urea nitrogen [Mass/Vol] 10.0 mg/dL Normal 7.0-18.0 [facility] Comment on above: Performed By: #### R F #### [facility] [address] [place], [place] [address] Dr. Efrain Zuñiga Urea nitrogen/Creatinine [Mass ratio] 10.6 mg/mg Normal [facility] Comment on above: Performed By: #### R F #### [facility] [address] [place], [place] [address] Dr. Efrain Zuñiga XR ABD FLAT UP_PA [...] LAZARUS SNOW Date: 2022-04-28 07:14 Normal [facility] XR ABD FLAT UP_PA CH ACUTE [...] EMILIANA CURTIS Date: 2022-04-27 22:01 Normal [facility] AMYLASEon 04-27-2022 Amylase [Catalytic activity/Vol] 36 U/L Normal 25-115 [facility] Comment on above: Performed By: #### P OCGLUC #### [facility] [address] [place] [address] Dr. Efrain Zuñiga CBC AUTO DIFFon 04-27-2022 BASO # 0.1 103/ul Normal 0.0-0.1 [facility] Comment on above: Performed By: #### P OCGLUC #### [facility] [address] [place] [address] Dr. Efrain Zuñiga Basophils/100 WBC (Bld) 0.8 % Normal 0.2-2.0 [facility] Comment on above: Performed By: #### P OCGLUC #### [facility] [address] [address] [address] Efrain Zuñiga EO # 0.1 103/ul Normal 0.0-0.7 [facility] Comment on above: Performed By: #### P OCGLUC #### [facility] [address] [place] [address] Dr. Efrain Zuñiga Eosinophils/100 WBC (Bld) 0.5 % Critically low 0.9-7.0 [facility] Comment on above: Performed By: #### P OCGLUC #### [facility] [address] [address] [address] Efrain Zuñiga Erythrocyte distribution width (RBC) [Ratio] 15.1 % Critically high 11.0-15.0 [facility] Comment on above: Performed By: #### P OCGLUC #### [facility] [address] [address] [address] Efrain Zuñiga Hematocrit (Bld) [Volume fraction] 44.2 % Normal 36.0-48.0 [facility] Comment on above: Performed By: #### P OCGLUC #### [facility] [address] [address] [address] Efrain Zuñiga Hemoglobin (Bld) [Mass/Vol] 14.6 g/dL Normal 12.0-16.0 [facility] Comment on above: Performed By: #### P OCGLUC #### [facility] [address] [place] [address] Dr. Efrain Zuñiga IG # 0.09 10e3/ul Critically high 0.00-0.03 [facility] Comment on above: Performed By: #### P OCGLUC #### [facility] [address] [address] [address] Efrain Zuñiga IG % 0.8 % Critically high 0.0-0.5 [facility] Comment on above: Performed By: #### P OCGLUC #### [facility] [address] [address] [address] Efrain Zuñiga LYMPH # 1.6 103/ul Normal 1.2-3.8 [facility] Comment on above: Performed By: #### P OCGLUC #### [facility] [address] [address] [address] Efrain Zuñiga Lymphocytes/100 WBC (Bld) 14.8 % Critically low 20.5-60.0 [facility] Comment on above: Performed By: #### P OCGLUC #### [facility] [address] [place] [address] Dr. Efrain Zuñiga MANUAL DIFF REQ NO Normal [facility] Comment on above: Performed By: #### P OCGLUC #### [facility] [address] [address] [address] Efrain Zuñiga MCH (RBC) [Entitic mass] 30.3 pg Normal 26.7-34.0 [facility] Comment on above: Performed By: #### P OCGLUC #### [facility] [address] [address] [address] Efrain Zuñiga MCHC (RBC) [Mass/Vol] 33.0 g/dL Normal 29.9-35.2 [facility] Comment on above: Performed By: #### P OCGLUC #### [facility] [address] [address] [address] Efrain Zuñiga MCV (RBC) [Entitic vol] 91.7 fL Normal 81.0-99.0 [facility] Comment on above: Performed By: #### P OCGLUC #### [facility] [address] [place] [address] Dr. Efrain Zuñiga MONO # 0.9 103/ul Critically high 0.3-0.8 [facility] Comment on above: Performed By: #### P OCGLUC #### [facility] [address] [address] [address] Efrain Zuñiga Monocytes/100 WBC (Bld) 7.8 % Normal 1.7-12.0 [facility] Comment on above: Performed By: #### P OCGLUC #### [facility] [address] [place] [address] Dr. Efrain Zuñiga NEUT # 8.2 103/ul Critically high 1.4-6.5 [facility] Comment on above: Performed By: #### P OCGLUC #### [facility] [address] [place] [address] Dr. Efrain Zuñiga Neutrophils/100 WBC (Bld) 75.3 % Critically high 43.0-75.0 [facility] Comment on above: Performed By: #### P OCGLUC #### [facility] [address] [place] [address] Dr. Efrain Zuñiga Platelet mean volume (Bld) [Entitic vol] 11.6 fL Normal 9.5-13.5 [facility] Comment on above: Performed By: #### P OCGLUC #### [facility] [address] [place], [place] [address] Dr. Efrain Zuñiga PLT 198 103/ul Normal 150-450 [facility] Comment on above: Performed By: #### P OCGLUC #### [facility] [address] [address] [address] Efrain Zuñiga RBC 4.82 106/ul Normal 4.20-5.40 [facility] Comment on above: Performed By: #### P OCGLUC #### [facility] [address] [address] [address] Efrain Zuñiga WBC 10.9 103/ul Normal 4.0-11.0 [facility] Comment on above: Performed By: #### P OCGLUC #### [facility] [address] [address] [address] Efrain Zuñiga CT ABD/PELV W CONon [...] LAZARUS SNOW Date: 2022-04-27 08:45 Normal [facility] CULTURE BLOODon 04-27-2022 Microscopic examination of blood, culture Culture Observations: No growth at 5 days. Normal [facility] Comment on above: Performed By: #### R F #### [facility] [address] [place] [address] Dr. Efrain Zuñiga Microscopic examination of blood, culture Culture Observations: No growth at 5 days. Normal [facility] Comment on above: Performed By: #### R F #### [facility] [address] [place] [address] Dr. Efrain Zuñiga CULTURE URINEon 04-27-2022 CULTURE URINE Culture Observations : No growth Normal [facility] Comment on above: Performed By: #### R F #### [facility] [address] [place] [address] Dr. Efrain Zuñiga Covid-19 PCR (CVDTB)on SARS-CoV-2 (COVID-19) RNA ASHLEIGH+probe Ql (Unsp spec) Not detected Normal NOT DETECTED [facility] Comment on above: Result Comment: When [...] for this test is supported by the [place] of Health and Human Service's declaration that [...] used). Performed By: #### C VDTBH #### [facility] [address] [place] [address] Dr. Efrain Zuñiga LACTATE/LACTIC ACIDon 2021 Lactate [Moles/Vol] 0.7 mmol/L Normal 0.4-1.9 [facility] Comment on above: Performed By: #### L ACT #### [facility] [address] [place] [address] Dr. Efrain Zuñiga LIPASEon 04-27-2022 Lipase [Catalytic activity/Vol] 92.0 U/L Normal 73.0-393.0 [facility] Comment on above: Performed By: #### P OCGLUC #### [facility] [address] [place] [address] Dr. Efrain Zuñiga LIVER PROFILEon 04-27-2022 Albumin [Mass/Vol] 3.2 g/dL Critically low 3.4-5.0 [facility] Comment on above: Performed By: #### P OCGLUC #### [facility] [address] [place] [address] Dr. Efrain Zuñiga Albumin/Globulin [Mass ratio] 0.8 {ratio} Normal [facility] Comment on above: Performed By: #### P OCGLUC #### [facility] [address] [address] [address] Efrain Zuñiga ALP [Catalytic activity/Vol] 101 U/L Normal 46-116 [facility] Comment on above: Performed By: #### P OCGLUC #### [facility] [address] [address] [address] Efrain Zuñiga ALT [Catalytic activity/Vol] 24 U/L Normal 14-59 [facility] Comment on above: Performed By: #### P OCGLUC #### [facility] [address] [address] [address] Efrain Zuñiga AST [Catalytic activity/Vol] 10 U/L Critically low 15-37 [facility] Comment on above: Performed By: #### P OCGLUC #### [facility] [address] [address] [address] Efrain Zuñiga BILI, CONJUGATED 0.2 mg/dL Normal 0.0-0.2 [facility] Comment on above: Performed By: #### P OCGLUC #### [facility] [address] [address] [address] Efrain Zuñiga Bilirubin [Mass/Vol] 0.9 mg/dL Normal 0.2-1.0 [facility] Comment on above: Performed By: #### P OCGLUC #### [facility] [address] [place] [address] Dr. Efrain Zuñiga Globulin (S) [Mass/Vol] 4.0 g/dL Normal [facility] Comment on above: Performed By: #### P OCGLUC #### [facility] [address] [address] [address] Efrain Zuñiga Protein [Mass/Vol] 7.2 g/dL Normal 6.4-8.2 [facility] Comment on above: Performed By: #### P OCGLUC #### [facility] [address] [address] [address] Efrain Zuñiga POINT OF CARE GLUCOSEon 06-0 Glucose [Mass/Vol] 142 mg/dL Critically high 74-106 [facility] Comment on above: Performed By: #### P OCGLUC #### [facility] [address] [address] [address] Efrain Zuñiga Glucose [Mass/Vol] 261 mg/dL Critically high 74-106 [facility] Comment on above: Performed By: #### P OCGLUC #### [facility] [address] [address] [address] Efrain Zuñiga Glucose [Mass/Vol] 305 mg/dL Critically high 74-106 [facility] Comment on above: Performed By: #### P OCGLUC #### [facility] [address] [address] [address] Efrain Zuñgia PROF CHEM 8 (BAS METB)on Anion gap [Moles/Vol] 12.9 mmol/L Normal [facility] Comment on above: Performed By: #### P OCGLUC #### [facility] [address] [address] [address] Efrain Zuñiga Calcium [Mass/Vol] 9.2 mg/dL Normal 8.5-10.1 [facility] Comment on above: Performed By: #### P OCGLUC #### [facility] [address] [address] [address] Efrain Zuñiga Chloride [Moles/Vol] 99 mmol/L Normal 98-107 [facility] Comment on above: Performed By: #### P OCGLUC #### [facility] [address] [address] [address] Efrain Zuñiga CO2 [Moles/Vol] 27.0 mmol/L Normal 21.0-32.0 [facility] Comment on above: Performed By: #### P OCGLUC #### [facility] [address] [address] [address] Efrain Zuñiga Creatinine [Mass/Vol] 0.94 mg/dL Normal 0.55-1.02 [facility] Comment on above: Performed By: #### P OCGLUC #### [facility] [address] [place] [address] Dr. Efrain Zuñiga EGFR-AF SWEDISH >60 Normal >=60 [facility] Comment on above: Performed By: #### P OCGLUC #### [facility] [address] [address] [address] Efrain Zuñiga EGFR-NON AF SWEDISH >60 Normal >=60 [facility] Comment on above: Performed By: #### P OCGLUC #### [facility] [address] [address] [address] Efrain Zuñiga Glucose [Mass/Vol] 360 mg/dL Critically high 74-106 [facility] Comment on above: Performed By: #### P OCGLUC #### [facility] [address] [address] [address] Efrain Zuñiga Potassium [Moles/Vol] 4.9 mmol/L Normal 3.5-5.1 [facility] Comment on above: Performed By: #### P OCGLUC #### [facility] [address] [address] [address] Efrain Zuñiga Sodium [Moles/Vol] 134 mmol/L Critically low 136-145 [facility] Comment on above: Performed By: #### P OCGLUC #### [facility] [address] [address] [address] Efrain Zuñiga Urea nitrogen [Mass/Vol] 17.0 mg/dL Normal 7.0-18.0 [facility] Comment on above: Performed By: #### P OCGLUC #### [facility] [address] [place] [address] Dr. Efrain Zuñiga Urea nitrogen/Creatinine [Mass ratio] 18.1 mg/mg Normal [facility] Comment on above: Performed By: #### P OCGLUC #### [facility] [address] [address] [address] Efrain Zuñiga XR ABD FLAT UP_PA [...] by: MARINE GUERRERO Date: 2022-04-27 20:34 Normal [facility] XR ABD FLAT UP_PA CH EXAMINATION: [...] by: LAZARUS SNOW Date: 2022-04-27 18:37 Normal [facility] Basic Metabolic Panelon 05-0 Anion gap [Moles/Vol] 11 mmol/L 9 - 17 mmol/L [facility] Calcium [Mass/Vol] 9.1 mg/dL 8.6 - 10. 4 mg/dL [facility] Chloride [Moles/Vol] 97 mmol/L Low 98 - 10 7 mmol/L [facility] CO2 [Moles/Vol] 26 mmol/L 20 - 31 mmol/L [facility] Creatinine [Mass/Vol] 1.04 mg/dL High 0.50 - 0.90 mg/dL [facility] GFR >60 >60 mL/min [facility] GFR Non- 55 mL/min Low >60 [facility] Glucose [Mass/Vol] 441 mg/dL Critically high 70 - 9 9 mg/dL [facility] Interpretation and review of laboratory results Abnormal [facility] Potassium [Moles/Vol] 4.5 mmol/L 3.7 - 5.3 mmol/L [facility] Sodium [Moles/Vol] 134 mmol/L Low 135 - 144 mmol/L [facility] Urea nitrogen (BldV) [Mass/Vol] 20 mg/dL 6 - 20 mg/dL [facility] Urea nitrogen/Creatinine (Bld) [Mass ratio] 19 [facility] - Chemistry and C hemistry - challengeon 03-27-2022 GFR/1.73 sq M.predicted MDRD (S/P/Bld) [Vol rate/Area] [facility] Comment on above: Average GFR for 50-5 9 years old: 93 mL/min/1.73sq m Chronic Kidney Disease: <60 mL/min/1.73sq m Kidney failure: <15 mL/min/1.73sq m eGFR calculated using average adult body mass. Additional eGFR calculator available at: http://www.[employer]/multiple_crcl_2011.htm Stage 1: Some kidney damage normal GFR Stage 2: Mild kidney damage GFR 60-89 Stage 3: Moderate kidney damage GFR 30-59 Stage 4: Severe kidney damage GFR 15-29 Stage 5: Severe kidney damage GFR <15 ESRD - chronic treatment by dialysis or transplant Steve 03-18-2022 ALT [Catalytic activity/Vol] 15 U/L 5 - 33 U/L [facility] Nikos 03-18-2022 AST [Catalytic activity/Vol] 9 U/L <32 [facility] Basic Metabolic Panelon 02-25 Anion gap [Moles/Vol] 11 mmol/L 9 - 17 mmol/L [facility] Calcium [Mass/Vol] 9.5 mg/dL 8.6 - 10. 4 mg/dL [facility] Chloride [Moles/Vol] 93 mmol/L Low 98 - 10 7 mmol/L [facility] CO2 [Moles/Vol] 24 mmol/L 20 - 31 mmol/L [facility] Creatinine [Mass/Vol] 0.96 mg/dL High 0.50 - 0.90 mg/dL [facility] GFR >60 >60 mL/min [facility] GFR Non- >60 >60 mL/min [facility] Glucose [Mass/Vol] 434 mg/dL Critically high 70 - 9 9 mg/dL [facility] Interpretation and review of laboratory results Abnormal [facility] Potassium [Moles/Vol] 4.5 mmol/L 3.7 - 5.3 mmol/L [facility] Sodium [Moles/Vol] 128 mmol/L Low 135 - 144 mmol/L [facility] Urea nitrogen (BldV) [Mass/Vol] 14 mg/dL 6 - 20 mg/dL [facility] Urea nitrogen/Creatinine (Bld) [Mass ratio] 15 [facility] - Chemistry and C hemistry - challengeon 03-18-2022 GFR/1.73 sq M.predicted MDRD (S/P/Bld) [Vol rate/Area] [facility] Comment on above: Average GFR for 50-5 9 years old: 93 mL/min/1.73sq m Chronic Kidney Disease: <60 mL/min/1.73sq m Kidney failure: <15 mL/min/1.73sq m eGFR calculated using average adult body mass. Additional eGFR calculator available at: http://www.[employer]/multiple_crcl_2012.htm Stage 1: Some kidney damage normal GFR Stage 2: Mild kidney damage GFR 60-89 Stage 3: Moderate kidney damage GFR 30-59 Stage 4: Severe kidney damage GFR 15-29 Stage 5: Severe kidney damage GFR <15 ESRD - chronic treatment by dialysis or transplant Lipid Panelon 03-18-2022 Cholesterol [Mass/Vol] 141 mg/dL <200 [facility] Comment on above: Cholesterol Guidelines: <200 Desirable 200-240 Borderline >240 Undesirable Cholesterol in HDL [Mass/Vol] 31 mg/dL Low >40 [facility] Comment on above: HDL Guidelines: <40 Undesirable 40-59 Borderline >59 Desirable Cholesterol in LDL [Mass/Vol] 60 mg/dL 0 - 130 mg/dL [facility] Comment on above: LDL Guidelines: <100 Desirable 100-129 Near to/above Desirable 130-159 Borderline >159 Undesirable Direct (measured) LDL and calculated LDL are not interchangeable tests. Cholesterol.total/Ch olesterol in HDL [Mass ratio] 4.5 {ratio} <5 [facility] Interpretation and review of laboratory results Abnormal [facility] Triglyceride [Mass/Vol] 249 mg/dL High <150 [facility] Comment on above: Triglyceride Guidelines: <150 Desirable 150-199 Borderline 200-499 High >499 Very high Based on AHA Guidelines for fasting triglyceride, August 2012. [facility] No Panel Informationon 03-18 [facility] Procedure Noteon 11-06-2017 Procedure [id number] Surgery Date: 09/18/2017 Room #: 5AB [id number] Date of : 1965 PROCEDURE NOTEATTENDING: Estela Womack MDASSISTANT: Milan Cornejo M.D.PREOPERATIVE DIAGNOSIS: Necrotic abdominal incisional wound.PROCEDURE PERFORMED: Sharp excisional debridement of incisional abdominalwound.INDICATIO NS: This is a 52-year-old female, [facility], which she underwentexploratory [...] otherwiseimmediately available to assist. Date Dict: 11/05/2017/04:26 P/Milan CornejoMILAGROate Trans: 11/06/2017 09:44 A/AlessiaN_JN:[id number] [facility] Discharge Summaryon 09-28-20 Discharge Summary [id number] Admitted: 09/13/2017 Discharged: 09/18/2017 Date of : 1965 Physician: Estela Womack MD DISCHARGE SUMMARYPRIMARY DISCHARGE DIAGNOSIS: Small bowel obstruction.PROCEDURES PERFORMED: None.HOSPITAL COURSE: This is a 52-year-old female who was transferred from [facility] facility, status post small bowel resection. Earlier this month,she underwent a neck surgery and then later developed a small-bowelobstruction. She required an exploratory laparotomy, lysis of adhesions,and primary anastomosis due to the small bowel obstruction. [facility] management as she had prolonged [...] there may be anadditional personal documentation from me. Date Dict: 09/27/2017/01:59 A/MILAGRO Mannate Trans: 09/27/2017 11:37 P/[id number]:[id number] cc: Cary Santos M.D. [address], [facility] [id number] [place] [address] [facility] Procedure Noteon 09-19-2017 Procedure Note MR[id number] Dorothy Oneal Surgery Date: 09/18/2017 Room #: 5AB [id number] Date of : 1965 PROCEDURE NOTEATTENDING: AMRIA ALEJANDRA PulidoREOPERATIVE DIAGNOSIS: Necrotic abdominal incisional wound.PROCEDURE [...] Approximately 10 mL of 1%lidocaine was infiltrated ysey-incisionally. Using 11 blade, necrotic skinand soft tissue [...] Dict: 09/18/2017/09:15 A/MILAGRO Mannate Trans: 09/19/2017 04:12 A/Mychal_JN:[id number] [facility] BASIC METABOLIC PANELon 10-2 -2016 Calcium 8.4 mg/dL Low 8.6-10.3 [facility] Comment on above: Order Comment: No: D o not add to previous draw Performed By: #### 3 7411, 34995, 84635, 56082 ####[facility] [facility] [place] [address], [facility] Chloride 103 mmol/L Normal 98-[address] [facility] Comment on above: Order Comment: No: D o not add to previous draw Performed By: #### 3 6901, 88297, 81811, 14046 ####[facility] [place] [address], [facility] CO2 24 mmol/L Normal 21-[address] [facility] Comment on above: Order Comment: No: D o not add to previous draw Performed By: #### 3 6901, 58172, 13361, 47124 ####[facility] Creatinine 1.59 mg/dL High 0.60-1.[address] [facility] Comment on above: Order Comment: No: D o not add to previous draw Performed By: #### 3 6901, 58157, 29070, 77382 ####[facility] [facility] [place] [address], [facility] eGFR (black) 42 ml/min/1.73sq m Abnormal >[address] [facility] Comment on above: Order Comment: No: D o not add to previous draw Performed By: #### 3 6901, 91191, 65249, 02713 ####[facility] [facility].[address] eGFR (non-black) 34 ml/min/1.73sq m Abnormal >[address] [facility] Comment on above: Order Comment: No: D o not add to previous draw Performed By: #### 3 6901, 95332, 35511, 20161 ####[facility] [facility].[address] Glucose mass conc 201 mg/dL High 70-[address] [facility] Comment on above: Order Comment: No: D o not add to previous draw Performed By: #### 3 6901, 82691, 72786, 67577 ####[facility] [facility].[address] Potassium molar conc 3.0 mmol/L Low 3.5-5.[address] [facility] Comment on above: Order Comment: No: D o not add to previous draw Performed By: #### 3 6901, 90725, 09880, 65129 ####[facility] [facility] [place] [address], [facility] Sodium 136 mmol/L Normal 136-[address] [facility] Comment on above: Order Comment: No: D o not add to previous draw Performed By: #### 3 6901, 50722, 50223, 32514 ####[facility] Urea nitrogen 9 mg/dL Normal 7-[address] [facility] Comment on above: Order Comment: No: D o not add to previous draw Performed By: #### 3 6901, 17014, 21886, 34181 ####[facility] [facility] CBC COMPLETE BLOOD COUNTon - Erythrocyte distribution width Auto Ratio (RBC) 14.1 % Normal 11.5-16.[address] [facility] Comment on above: Order Comment: No: D o not add to previous draw Performed By: #### 3 6901, 63987, 75740, 62084 ####[facility] Erythrocytes (RBC) 3.30 mill/mm3 Low 3.50-5.[address] [facility] Comment on above: Order Comment: No: D o not add to previous draw Performed By: #### 3 6901, 49904, 05626, 33107 ####[facility] [facility].[address] Hematocrit (HCT) 30.1 % Low 36.0-48.[address] [facility] Comment on above: Order Comment: No: D o not add to previous draw Performed By: #### 3 6901, 60892, 84520, 84848 ####[facility] Hemoglobin mass conc (Bld) 9.9 g/dL Low 12.0-15.[address] [facility] Comment on above: Order Comment: No: D o not add to previous draw Performed By: #### 3 6901, 77492, 55264, 21171 ####[facility] [place] [address], [facility] MCH 29.8 pg Normal 24.0-32.[address] [facility] Comment on above: Order Comment: No: D o not add to previous draw Performed By: #### 3 6901, 90652, 44633, 05596 ####[facility] [facility].[address] MCHC mass conc (RBC) 32.8 g/dL Normal 32.0-36.[address] [facility] Comment on above: Order Comment: No: D o not add to previous draw Performed By: #### 3 6901, 07451, 56475, 85284 ####[facility] [facility].[address] MCV 91.0 fL Normal 80.0-100.[address] [facility] Comment on above: Order Comment: No: D o not add to previous draw Performed By: #### 3 6901, 90119, 88586, 32543 ####[facility] [facility].[address] PLAT CNT 311 Thou/mm3 Normal 100-[address] [facility] Comment on above: Order Comment: No: D o not add to previous draw Performed By: #### 3 6901, 20316, 92365, 54518 ####[facility] [facility].[address] WBC (Leukocytes) 8.8 Thou/mm3 Normal 4.0-10.[address] [facility] Comment on above: Order Comment: No: D o not add to previous draw Performed By: #### 3 6901, 18797, 68781, 59036 ####[facility] [facility].[address] POC GLUCOSE LABon 09-18-2017 Glucose mass conc 224 mg/dL High 70-[address] [facility] Comment on above: Performed By: #### 3 6901, 63577, 12205, 49114 ####[facility] [facility] [place] [address], [facility] Glucose mass conc 171 mg/dL High 70-[address] [facility] Comment on above: Performed By: #### 3 6901, 42387, 56007, 20084 ####[facility] BASIC METABOLIC PANELon 10-2 Calcium 8.3 mg/dL Low 8.6-10.[address] [facility] Comment on above: Order Comment: Yes: Add to Previous draw if able Performed By: #### 3 6901, 36944, 76615, 85610 ####[facility] [place] [address], [facility] Chloride 106 mmol/L Normal 98-[address] [facility] Comment on above: Order Comment: Yes: Add to Previous draw if able Performed By: #### 3 6901, 19128, 48418, 03496 ####[facility] CO2 25 mmol/L Normal 21-[address] [facility] Comment on above: Order Comment: Yes: Add to Previous draw if able Performed By: #### 3 6901, 53835, 86388, 60664 ####[facility] Creatinine 1.67 mg/dL High 0.60-1.[address] [facility] Comment on above: Order Comment: Yes: Add to Previous draw if able Performed By: #### 3 6901, 46274, 04904, 21186 ####[facility] eGFR (black) 39 ml/min/1.73sq m Abnormal >[address] [facility] Comment on above: Order Comment: Yes: Add to Previous draw if able Performed By: #### 3 6901, 82157, 15023, 55937 ####[facility] eGFR (non-black) 33 ml/min/1.73sq m Abnormal >[address] [facility] Comment on above: Order Comment: Yes: Add to Previous draw if able Performed By: #### 3 6901, 93079, 45772, 09963 ####[facility] [place] [address], [facility] Glucose mass conc 159 mg/dL High 70-[address] [facility] Comment on above: Order Comment: Yes: Add to Previous draw if able Performed By: #### 3 6901, 69478, 55864, 68979 ####[facility] [place] [address], [facility] Potassium molar conc 3.3 mmol/L Low 3.5-5.[address] [facility] Comment on above: Order Comment: Yes: Add to Previous draw if able Performed By: #### 3 6901, 54708, 72964, 10032 ####[facility] Sodium 140 mmol/L Normal 136-[address] [facility] Comment on above: Order Comment: Yes: Add to Previous draw if able Performed By: #### 3 6901, 72056, 78253, 08090 ####[facility] [place] [address], [facility] Urea nitrogen 12 mg/dL Normal 7-[address] [facility] Comment on above: Order Comment: Yes: Add to Previous draw if able Performed By: #### 3 6901, 98908, 09457, 82975 ####[facility] [place] [address], [facility] CBC COMPLETE BLOOD COUNTon - Erythrocyte distribution width Auto Ratio (RBC) 14.3 % Normal 11.5-16.[address] [facility] Comment on above: Order Comment: Yes: Add to Previous draw if able Performed By: #### 3 6901, 43575, 62672, 38196 ####[facility] Erythrocytes (RBC) 3.20 mill/mm3 Low 3.50-5.[address] [facility] Comment on above: Order Comment: Yes: Add to Previous draw if able Performed By: #### 3 6901, 02978, 03930, 34613 ####[facility] Hematocrit (HCT) 29.2 % Low 36.0-48.[address] [facility] Comment on above: Order Comment: Yes: Add to Previous draw if able Performed By: #### 3 6901, 22393, 74753, 92988 ####[facility]3000 [facility].[address] Hemoglobin mass conc (Bld) 9.6 g/dL Low 12.0-15.[address] [facility] Comment on above: Order Comment: Yes: Add to Previous draw if able Performed By: #### 3 6901, 46623, 85623, 66663 ####[facility]3000 [facility].[address] MCH 30.0 pg Normal 24.0-32.[address] [facility] Comment on above: Order Comment: Yes: Add to Previous draw if able Performed By: #### 3 6901, 91466, 53303, 24832 ####[facility]3000 [facility].[address] MCHC mass conc (RBC) 32.9 g/dL Normal 32.0-36.[address] [facility] Comment on above: Order Comment: Yes: Add to Previous draw if able Performed By: #### 3 6901, 36236, 24798, 87488 ####[facility]3000 [facility].[address] MCV 91.3 fL Normal 80.0-100.[address] [facility] Comment on above: Order Comment: Yes: Add to Previous draw if able Performed By: #### 3 6901, 47445, 39887, 56579 ####[facility] [place] [address], [facility] PLAT CNT 315 Thou/mm3 Normal 100-[address] [facility] Comment on above: Order Comment: Yes: Add to Previous draw if able Performed By: #### 3 6901, 26045, 04306, 76998 ####[facility] [place] [address], [facility] WBC (Leukocytes) 7.8 Thou/mm3 Normal 4.0-10.[address] [facility] Comment on above: Order Comment: Yes: Add to Previous draw if able Performed By: #### 3 6901, 16107, 31002, 98482 ####[facility] [place] [address], [facility] MAGNESIUM BLOODon 09-17-2017 Magnesium 1.6 mg/dL Low 1.9-2.[address] [facility] Comment on above: Order Comment: Yes: Add to Previous draw if able Performed By: #### 3 6901, 33308, 30534, 01399 ####[facility] [place] [address], [facility] POC GLUCOSE LABon 09-17-2017 Glucose mass conc 163 mg/dL High 70-[address] [facility] Comment on above: Performed By: #### 3 6901, 26609, 07555, 51469 ####[facility] [place] [address], [facility] Glucose mass conc 172 mg/dL High 70-[address] [facility] Comment on above: Performed By: #### 3 6901, 25822, 74474, 00357 ####[facility] [place] [address], [facility] Glucose mass conc 174 mg/dL High 70-[address] [facility] Comment on above: Performed By: #### 3 6901, 50660, 02388, 81839 ####[facility] [place] [address], [facility] Glucose mass conc 159 mg/dL High 70-[address] [facility] Comment on above: Performed By: #### 3 6901, 45900, 98485, 27072 ####[facility] [place] [address], [facility] Glucose mass conc 192 mg/dL High 70-[address] [facility] Comment on above: Performed By: #### 3 6901, 72559, 18074, 44769 ####[facility] BASIC METABOLIC PANELon 10-2 Calcium 8.3 mg/dL Low 8.6-10.[address] [facility] Comment on above: Order Comment: No: D o not add to previous draw Performed By: #### 5 6101, 22719 ####[facility]3000 [facility] [place] [address], [facility] Chloride 110 mmol/L High 98-[address] [facility] Comment on above: Order Comment: No: D o not add to previous draw Performed By: #### 5 6101, 92080 ####[facility]3000 [facility] [place] [address], [facility] CO2 21 mmol/L Normal 21-[address] [facility] Comment on above: Order Comment: No: D o not add to previous draw Performed By: #### 5 6101, 46835 ####[facility]3000 [facility] [place] [address], [facility] Creatinine 1.76 mg/dL High 0.60-1.[address] [facility] Comment on above: Order Comment: No: D o not add to previous draw Performed By: #### 5 6101, 50887 ####[facility]3000 [facility].[address] eGFR (black) 37 ml/min/1.73sq m Abnormal >[address] [facility] Comment on above: Order Comment: No: D o not add to previous draw Performed By: #### 5 6101, 02536 ####[facility] eGFR (non-black) 30 ml/min/1.73sq m Abnormal >[address] [facility] Comment on above: Order Comment: No: D o not add to previous draw Performed By: #### 5 610, 95403 ####[facility] Glucose mass conc 93 mg/dL Normal 70-[address] [facility] Comment on above: Order Comment: No: D o not add to previous draw Performed By: #### 5 6101, 72786 ####[facility] Potassium molar conc 3.5 mmol/L Normal 3.5-5.[address] [facility] Comment on above: Order Comment: No: D o not add to previous draw Performed By: #### 5 610, 28998 ####[facility] Sodium 148 mmol/L High 136-[address] [facility] Comment on above: Order Comment: No: D o not add to previous draw Performed By: #### 5 6101, 29465 ####[facility]3000 [facility].[address] Urea nitrogen 17 mg/dL Normal 7-[address] [facility] Comment on above: Order Comment: No: D o not add to previous draw Performed By: #### 5 6101, 26480 ####[facility]3000 [facility].[address] CBC COMPLETE BLOOD COUNTon Erythrocyte distribution width Auto Ratio (RBC) 13.6 % Normal 11.5-16.[address] [facility] Comment on above: Order Comment: No: D o not add to previous draw Performed By: #### 5 610, 18893 ####[facility] [place] [address], [facility] Erythrocytes (RBC) 3.16 mill/mm3 Low 3.50-5.[address] [facility] Comment on above: Order Comment: No: D o not add to previous draw Performed By: #### 5 6100, 08483 ####[facility] Hematocrit (HCT) 28.8 % Low 36.0-48.[address] [facility] Comment on above: Order Comment: No: D o not add to previous draw Performed By: #### 5 6100, 82762 ####[facility]3000 [facility].[address] Hemoglobin mass conc (Bld) 9.5 g/dL Low 12.0-15.[address] [facility] Comment on above: Order Comment: No: D o not add to previous draw Performed By: #### 5 6100, 20638 ####[facility]3000 [facility].[address] MCH 30.1 pg Normal 24.0-32.[address] [facility] Comment on above: Order Comment: No: D o not add to previous draw Performed By: #### 5 6100, 61138 ####[facility] [facility] [place] [address], [facility] MCHC mass conc (RBC) 33.0 g/dL Normal 32.0-36.[address] [facility] Comment on above: Order Comment: No: D o not add to previous draw Performed By: #### 5 610, 88984 ####[facility] [facility] [place] [address], [facility] MCV 91.2 fL Normal 80.0-100.[address] [facility] Comment on above: Order Comment: No: D o not add to previous draw Performed By: #### 5 6100, 52987 ####[facility] [place] [address], [facility] PLAT CNT 329 Thou/mm3 Normal 100-[address] [facility] Comment on above: Order Comment: No: D o not add to previous draw Performed By: #### 5 6100, 43239 ####[facility] [place] [address], [facility] WBC (Leukocytes) 9.2 Thou/mm3 Normal 4.0-10.[address] [facility] Comment on above: Order Comment: No: D o not add to previous draw Performed By: #### 5 6100, 21708 ####[facility] [place] [address], [facility] POC GLUCOSE LABon 09-16-2017 Glucose mass conc 248 mg/dL High 70-[address] [facility] Comment on above: Performed By: #### 5 6100, 72598 ####[facility] [place] [address], [facility] Glucose mass conc 131 mg/dL High 70-[address] [facility] Comment on above: Performed By: #### 5 6100, 28392 ####[facility] [place] [address], [facility] Glucose mass conc 96 mg/dL Normal 70-[address] [facility] Comment on above: Performed By: #### 5 6100, 37399 ####[facility] [place] [address], [facility] Glucose mass conc 79 mg/dL Normal 70-[address] [facility] Comment on above: Performed By: #### 5 610, 21577 ####[facility] [place] [address], [facility] BASIC METABOLIC PANELon 10-2 Calcium 8.5 mg/dL Low 8.6-10.[address] [facility] Comment on above: Order Comment: No: D o not add to previous draw Performed By: #### 5 610, 94928 ####[facility] [place] [address], [facility] Chloride 108 mmol/L High 98-[address] [facility] Comment on above: Order Comment: No: D o not add to previous draw Performed By: #### 5 610, 98988 ####[facility] [place] [address], [facility] CO2 22 mmol/L Normal 21-[address] [facility] Comment on above: Order Comment: No: D o not add to previous draw Performed By: #### 5 6100, 98175 ####[facility] [place] [address], [facility] Creatinine 1.96 mg/dL High 0.60-1.[address] [facility] Comment on above: Order Comment: No: D o not add to previous draw Performed By: #### 5 610, 86519 ####[facility] [place] [address], [facility] eGFR (black) 33 ml/min/1.73sq m Abnormal >[address] [facility] Comment on above: Order Comment: No: D o not add to previous draw Performed By: #### 5 610, 34241 ####[facility] [place] [address], [facility] eGFR (non-black) 27 ml/min/1.73sq m Abnormal >[address] [facility] Comment on above: Order Comment: No: D o not add to previous draw Performed By: #### 5 610, 87585 ####[facility] [id number], [facility] Glucose mass conc 92 mg/dL Normal 70-[address] [facility] Comment on above: Order Comment: No: D o not add to previous draw Performed By: #### 5 610, 27914 ####[facility] Potassium molar conc 3.8 mmol/L Normal 3.5-5.[address] [facility] Comment on above: Order Comment: No: D o not add to previous draw Performed By: #### 5 610, 06857 ####[facility] Sodium 144 mmol/L Normal 136-[address] [facility] Comment on above: Order Comment: No: D o not add to previous draw Performed By: #### 5 610, 80212 ####[place] [address] [facility].[address] Urea nitrogen 22 mg/dL Normal 7-[address] [facility] Comment on above: Order Comment: No: D o not add to previous draw Performed By: #### 5 610, 44638 ####[facility] [facility].[address] CBC COMPLETE BLOOD COUNTon 1 - Erythrocyte distribution width Auto Ratio (RBC) 14.3 % Normal 11.5-16.[address] [facility] Comment on above: Order Comment: No: D o not add to previous draw Performed By: #### 5 610, 69463 ####[place] [address] [facility].[address] Erythrocytes (RBC) 3.37 mill/mm3 Low 3.50-5.[address] [facility] Comment on above: Order Comment: No: D o not add to previous draw Performed By: #### 5 610, 83038 ####[facility] Hematocrit (HCT) 31.1 % Low 36.0-48.[address] [facility] Comment on above: Order Comment: No: D o not add to previous draw Performed By: #### 5 610, 55469 ####[facility] Hemoglobin mass conc (Bld) 9.9 g/dL Low 12.0-15.[address] [facility] Comment on above: Order Comment: No: D o not add to previous draw Performed By: #### 5 610, 99918 ####[facility] [place] [address], [facility] MCH 29.5 pg Normal 24.0-32.[address] [facility] Comment on above: Order Comment: No: D o not add to previous draw Performed By: #### 5 6100, 73523 ####[facility] MCHC mass conc (RBC) 32.0 g/dL Normal 32.0-36.[address] [facility] Comment on above: Order Comment: No: D o not add to previous draw Performed By: #### 5 6100, 07142 ####[facility] [facility].[address] MCV 92.4 fL Normal 80.0-100.[address] [facility] Comment on above: Order Comment: No: D o not add to previous draw Performed By: #### 5 610, 62257 ####[facility] [place] [address], [facility] PLAT CNT 347 Thou/mm3 Normal 100-[address] [facility] Comment on above: Order Comment: No: D o not add to previous draw Performed By: #### 5 610, 87773 ####[facility] [place] [address], [facility] WBC (Leukocytes) 10.7 Thou/mm3 High 4.0-10.[address] [facility] Comment on above: Order Comment: No: D o not add to previous draw Performed By: #### 5 610, 23268 ####[facility] [place] [address], [facility] MAGNESIUM BLOODon 09-15-2017 Magnesium 1.9 mg/dL Normal 1.9-2.[address] [facility] Comment on above: Order Comment: No: D o not add to previous draw Performed By: #### 5 6101, 53592 ####[facility] [facility] [place] [address], [facility] PHOSPHORUS BLOODon 7 Phosphate 5.2 mg/dL High 2.5-5.[address] [facility] Comment on above: Order Comment: No: D o not add to previous draw Performed By: #### 5 610, 47456 ####[facility] [facility] [place] [address], [facility] POC GLUCOSE LABon 09-15-2017 Glucose mass conc 84 mg/dL Normal 70-[address] [facility] Comment on above: Performed By: #### 5 610, 04020 ####[place] [address] [facility] [place] [address], [facility] Glucose mass conc 109 mg/dL High 70-[address] [facility] Comment on above: Performed By: #### 5 610, 71268 ####[place] [address] [facility] [place] [address], [facility] Glucose mass conc 97 mg/dL Normal 70-[address] [facility] Comment on above: Performed By: #### 5 610, 07293 ####[facility] [facility] [place] [address], [facility] Glucose mass conc 88 mg/dL Normal 70-[address] [facility] Comment on above: Performed By: #### 5 6101, 93753 ####[place] [address] [facility] [place] [address], [facility] SMALL BOWELon 09-15-[address] [facility] [id number] [place] [id number] ==Patient Name: DOROTHY ONEAL : 1965Sex: FAge: Race: WhiteMRN: [id number]. Location: [id number] Status: IVisit #: [id number] Date: 09/15/2017 8:40:00 AMCompleted Date: 09/15/2017 01:11 PMRequesting Provider: LIZZ MUKHERJEE Attending Provider: ESTELA WOMACK Report Copy To: Signs & Symptoms: Abdomen Pain GeneralizedHistory: Patient history not availableComments: Other, small bowel obstruction. please do small bowel follow through with water soluableExam: SMALL BOWELAccession #: [id number] =========SMALL BOWEL 09/15/2017 1:11 PM EDT SIGNS [...] Electronically signed by:Alfredo Feng M.D.. Transcribed by: [email or web address], User Resident: SERVANDO DISLAElectronmina Signed by: ALFREDO FENG @ 09/15/2017 02:05 PMI personally read this/these film(s) with this resident Normal [facility] Comment on above: Order Comment: No: D o not add to previous draw BASIC METABOLIC PANELon 10-2 -2016 Calcium 8.6 mg/dL Normal 8.6-10.[address] [facility] Comment on above: Order Comment: No: D o not add to previous draw Performed By: #### 5 610, 10178 ####[facility] [place] [address], [place] Chloride 107 mmol/L Normal 98-[address] [facility] Comment on above: Order Comment: No: D o not add to previous draw Performed By: #### 5 610, 16324 ####[facility] [place] [address], [place] CO2 21 mmol/L Normal 21-[address] [facility] Comment on above: Order Comment: No: D o not add to previous draw Performed By: #### 5 6101, 87382 ####[facility] [place] [address], [place] Creatinine 2.01 mg/dL High 0.60-1.[address] [facility] Comment on above: Order Comment: No: D o not add to previous draw Performed By: #### 5 610, 23266 ####[facility] [place] [address], [place] eGFR (black) 32 ml/min/1.73sq m Abnormal >[address] [facility] Comment on above: Order Comment: No: D o not add to previous draw Performed By: #### 5 610, 85462 ####[facility] [place] [address], [place] eGFR (non-black) 26 ml/min/1.73sq m Abnormal >[address] [facility] Comment on above: Order Comment: No: D o not add to previous draw Performed By: #### 5 610, 84918 ####[facility] [place] [address], [facility] Glucose mass conc 106 mg/dL High 70-[address] [facility] Comment on above: Order Comment: No: D o not add to previous draw Performed By: #### 5 610, 32474 ####[facility] [place] [address], [facility] Potassium molar conc 4.0 mmol/L Normal 3.5-5.[address] [facility] Comment on above: Order Comment: No: D o not add to previous draw Performed By: #### 5 610, 60384 ####[facility] [place] [address], [facility] Sodium 140 mmol/L Normal 136-[address] [facility] Comment on above: Order Comment: No: D o not add to previous draw Performed By: #### 5 610, 30798 ####[facility] [place] [address], [facility] Urea nitrogen 24 mg/dL Normal 7-[address] [facility] Comment on above: Order Comment: No: D o not add to previous draw Performed By: #### 5 610, 04659 ####[facility] CBC COMPLETE BLOOD COUNTon Erythrocyte distribution width Auto Ratio (RBC) 14.3 % Normal 11.5-16.[address] [facility] Comment on above: Order Comment: No: D o not add to previous draw Performed By: #### 5 610, 70466 ####[facility] [place] [address], [facility] Erythrocytes (RBC) 3.77 mill/mm3 Normal 3.50-5.[address] [facility] Comment on above: Order Comment: No: D o not add to previous draw Performed By: #### 5 6100, 46536 ####[facility]3000 [facility].[address] Hematocrit (HCT) 34.8 % Low 36.0-48.[address] [facility] Comment on above: Order Comment: No: D o not add to previous draw Performed By: #### 5 6100, 83377 ####[facility] Hemoglobin mass conc (Bld) 11.3 g/dL Low 12.0-15.[address] [facility] Comment on above: Order Comment: No: D o not add to previous draw Performed By: #### 5 6100, 74770 ####[facility] [facility].[address] MCH 29.8 pg Normal 24.0-32.[address] [facility] Comment on above: Order Comment: No: D o not add to previous draw Performed By: #### 5 6100, 01247 ####[facility] [facility].[address] MCHC mass conc (RBC) 32.3 g/dL Normal 32.0-36.[address] [facility] Comment on above: Order Comment: No: D o not add to previous draw Performed By: #### 5 6100, 39690 ####[facility] [facility].[address] MCV 92.3 fL Normal 80.0-100.[address] [facility] Comment on above: Order Comment: No: D o not add to previous draw Performed By: #### 5 610, 30843 ####[facility] [facility].[address] PLAT CNT 387 Thou/mm3 Normal 100-[address] [facility] Comment on above: Order Comment: No: D o not add to previous draw Performed By: #### 5 6100, 56494 ####[facility] [place] [facility].[address] WBC (Leukocytes) 11.8 Thou/mm3 High 4.0-10.[address] [facility] Comment on above: Order Comment: No: D o not add to previous draw Performed By: #### 5 610, 10052 ####[facility] [place].[address] POC GLUCOSE LABon 09-14-2017 Glucose mass conc 92 mg/dL Normal 70-[address] [facility] Comment on above: Performed By: #### 5 610, 27377 ####[facility] [place].[address] Glucose mass conc 119 mg/dL High 70-[address] [facility] Comment on above: Performed By: #### 5 610, 28449 ####[facility] [place].[address] Glucose mass conc 107 mg/dL High 70-[address] [facility] Comment on above: Performed By: #### 5 610, 14881 ####[facility] [place].[address] Glucose mass conc 93 mg/dL Normal 70-[address] [facility] Comment on above: Performed By: #### 8 5499 ####[facility] [place].[address] AMYLASE BLOODon 09-13-2017 Amylase 45 Units/L Normal 29-[address] [facility] Comment on above: Order Comment: No: D o not add to previous draw Performed By: #### 3 6901, 52388, 60714, 88130 ####[facility] [place].[address] APTTon 09-13-2017 aPTT 34.3 s Normal 25.0-35.[address] [facility] Comment on above: Order Comment: No: D [...] THIS PURPOSE. Performed By: #### 5 6101, 91513 ####[facility] [place].[address] BASIC METABOLIC PANELon 10-1 Calcium 8.7 mg/dL Normal 8.6-10.[address] [facility] Comment on above: Order Comment: No: D o not add to previous draw Performed By: #### 3 6901, 44201, 23681, 11611 ####[place] [id number] [facility].[address] Chloride 106 mmol/L Normal 98-[address] [facility] Comment on above: Order Comment: No: D o not add to previous draw Performed By: #### 3 6901, 71931, 48378, 88103 ####[facility] [place].[address] CO2 22 mmol/L Normal 21-[address] [facility] Comment on above: Order Comment: No: D o not add to previous draw Performed By: #### 3 6901, 28275, 88343, 14949 ####[facility] [place].[address] Creatinine 2.16 mg/dL High 0.60-1.[address] [facility] Comment on above: Order Comment: No: D o not add to previous draw Performed By: #### 3 6901, 24249, 73981, 99360 ####[facility] [place].[address] eGFR (black) 29 ml/min/1.73sq m Abnormal >[address] [facility] Comment on above: Order Comment: No: D o not add to previous draw Performed By: #### 3 6901, 62167, 83836, 61711 ####[facility] [place] eGFR (non-black) 24 ml/min/1.73sq m Abnormal >[address] [facility] Comment on above: Order Comment: No: D o not add to previous draw Performed By: #### 3 6901, 78510, 39485, 81687 ####[facility] [place] Glucose mass conc 96 mg/dL Normal 70-[address] [facility] Comment on above: Order Comment: No: D o not add to previous draw Performed By: #### 3 6901, 14387, 26916, 50858 ####[facility] [place].[address] Potassium molar conc 4.3 mmol/L Normal 3.5-5.[address] [facility] Comment on above: Order Comment: No: D o not add to previous draw Performed By: #### 3 6901, 65451, 16515, 77295 ####[facility] [place].[address] Sodium 139 mmol/L Normal 136-[address] [facility] Comment on above: Order Comment: No: D o not add to previous draw Performed By: #### 3 6901, 57745, 03181, 71503 ####[facility] [place].[address] Urea nitrogen 25 mg/dL Normal 7-[address] [facility] Comment on above: Order Comment: No: D o not add to previous draw Performed By: #### 3 6901, 07607, 99521, 13071 ####[facility] [place] [place] [address], [facility] CBC W/DIFFon 09-13-2017 Basophils Auto #/vol (Bld) 0.5 % Normal 0.0-2.[address] [facility] Comment on above: Performed By: #### 5 0103 ####[facility] [place] [address], [facility] Eosinophils/100 leukocytes 1.5 % Normal 0.0-5.[address] [facility] Comment on above: Performed By: #### 5 0103 ####[facility] [place] Erythrocyte distribution width Auto Ratio (RBC) 14.5 % Normal 11.5-16.[address] [facility] Comment on above: Performed By: #### 5 3 ####[facility] [place] [address], [facility] Erythrocytes (RBC) 3.72 mill/mm3 Normal 3.50-5.[address] [facility] Comment on above: Performed By: #### 5 0103 ####[facility] [place].[address] Hematocrit (HCT) 34.1 % Low 36.0-48.[address] [facility] Comment on above: Performed By: #### 5 3 ####[facility] [place].[address] Hemoglobin mass conc (Bld) 11.3 g/dL Low 12.0-15.[address] [facility] Comment on above: Performed By: #### 5 3 ####[facility] [place] [place] [address], [facility] Lymphocytes/100 leukocytes 7.6 % Low 20.0-40.[address] [facility] Comment on above: Performed By: #### 5 3 ####[facility] [place] [address], [facility] MCH 30.4 pg Normal 24.0-32.[address] [facility] Comment on above: Performed By: #### 5 0103 ####[facility] [place] [address], [facility] MCHC mass conc (RBC) 33.1 g/dL Normal 32.0-36.[address] [facility] Comment on above: Performed By: #### 5 0103 ####[facility] [place] [address], [facility] MCV 91.8 fL Normal 80.0-100.[address] [facility] Comment on above: Performed By: #### 0103 ####[facility] [place] [place] [address], [facility] METHOD Normal RBC Morphology Normal [facility] Comment on above: Performed By: #### 3 ####[facility] [place] [address], [facility] MONOS 6.3 % Normal 2-[address] [facility] Comment on above: Performed By: #### 0103 ####[facility] [place] [place] [address], [facility] Neutrophils/100 leukocytes 84.1 % High 50-[address] [facility] Comment on above: Performed By: #### 5 3 ####[facility] [place] [place] [address], [facility] PLAT CNT 370 Thou/mm3 Normal 100-[address] [facility] Comment on above: Performed By: #### 5 3 ####[facility] [place] [address], [facility] WBC (Leukocytes) 15.5 Thou/mm3 High 4.0-10.[address] [facility] Comment on above: Performed By: #### 5 3 ####[facility] [place] [address], [facility] LACTATE BLOODon 09-13-2017 Lactate 0.8 mmol/L Normal .5-2.[address] [facility] Comment on above: Order Comment: No: D o not add to previous draw Performed By: #### 1 0054 ####[facility] [place] [address], [facility] LIPASE BLOODon 09-13-2017 Lipase 37 Units/L Normal 11-[address] [facility] Comment on above: Order Comment: Yes: Add to Previous draw if able Performed By: #### 3 6901, 80675, 86779, 98775 ####[facility] [place] [place] [address], [facility] LIVER BATTERYon 09-13-2017 Alanine aminotransferase (ALT) 13 U/L Normal 7-[address] [facility] Comment on above: Order Comment: No: D o not add to previous draw Performed By: #### 3 6901, 80072, 55560, 60327 ####[facility] [place] [place] [address], [facility] Albumin 2.5 g/dL Low 3.5-5.[address] [facility] Comment on above: Order Comment: No: D o not add to previous draw Performed By: #### 3 6901, 53941, 87427, 77000 ####[facility] [place] [address], [facility] ALKALINE PHOSPH 73 IU/L Normal 34-[address] [facility] Comment on above: Order Comment: No: D o not add to previous draw Performed By: #### 3 6901, 86714, 18863, 93098 ####[facility] [place] [place] [address], [facility] Aspartate aminotransferase (AST) 10 U/L Low 13-[address] [facility] Comment on above: Order Comment: No: D o not add to previous draw Performed By: #### 3 6901, 13321, 83642, 42476 ####[facility] [place].[place] [id number], [place] Bilirubin (direct) 0.1 mg/dL Normal 0.0-0.[address] [facility] Comment on above: Order Comment: No: D o not add to previous draw Performed By: #### 3 6901, 88758, 45314, 41232 ####[facility] [place].[address] Bilirubin (total) 0.4 mg/dL Normal 0.3-1.[address] [facility] Comment on above: Order Comment: No: D o not add to previous draw Performed By: #### 3 6901, 36053, 42952, 14823 ####[facility] [place].[address] Protein 6.3 g/dL Normal 6.0-8.[address] [facility] Comment on above: Order Comment: No: D o not add to previous draw Performed By: #### 3 6901, 60440, 26579, 94468 ####[facility] [place].[address] POC GLUCOSE LABon 09-13-2017 Glucose mass conc 87 mg/dL Normal 70-[address] [facility] Comment on above: Performed By: #### 8 5499 ####[facility] [place].[address] PROTHROMBIN TIMEon 7 INR Coag RelTime (PPP) 1.19 {INR} High 0.91-1.[address] [facility] Comment on above: Order Comment: No: D [...] OF ACTION, CLINICALEFFECTIVENESS, AND OPTIMAL THERAPEUTIC RANGE. [id number]. Performed By: #### 5 6101, 78329 ####[facility] [place].[address] Prothrombin time (PT) Coag time (PPP) 15.2 s High 12.3-14.[address] [facility] Comment on above: Order Comment: No: D o not add to previous draw Result Comment: ALL RESULTS MUST BE INTERPRETED WITH RESPECT TO BLOOD DRAWING ARTIFACTOR DILUTION ERROR OF ANTICOAGULANT AT THE TIME OF SAMPLING. Performed By: #### 5 6101, 19757 ####[facility] [place] Vital Signs Date Time Vital Sign Value Performing Clinician Eugenia thomas 09-01-2022 13:02-0400 Blood Pressure Location Nathan KOSTA [facility] [place] 09-01-2022 13:02-0400 Diastolic blood pressure 70 mm[Hg] Nathan BRAMBILA [facility] [place] 09-01-2022 13:02-0400 Heart rate 66 /min Nathan BRAMBILA [facility] [place] 09-01-2022 13:02-0400 Respiratory rate 16 /min Nathan BRAMBILA [facility] [place] 09-01-2022 13:02-0400 Systolic blood pressure 116 mm[Hg] Nathan BRAMBILA [facility] [place] 05-15-2022 17:00-0400 Heart rate 92 /[facility] 17:00-0400 Respiratory rate 24 /min Stv [facility] [employer] 05-15-2022 17:00-0400 SaO2% (BldA) [Mass fraction] 95 % Stv A [employer] 05-15-2022 15:45-0400 Diastolic blood pressure 58 mm[Hg] Stv A [employer] 05-15-2022 15:45-0400 Systolic blood pressure 97 mm[Hg] Stv A [employer] 05-15-2022 09:44-0400 Body height 165.1 cm Stv [facility] [email or web address] 05-15-2022 09:44-0400 Body mass index (BMI) [Ratio] 33.95 kg/m2 St[facility] [employer] 05-15-2022 09:44-0400 Body temperature 97.9 [degF] Stv [facility] [employer] 05-15-2022 09:44-0400 Body weight 92.53 kg [facility] [email or web address] Encounters Encounter Date Encounter Type Care Provider Facility Start: 05-23-2024 End: 05-25-2024 ambulatory [facility] Start: 05-23-2024 End: 05-25-2024 Subsequent hospital visit by physician Luna Musa MD [facility] Comment on above: Bilateral carotid ar sourav stenosis Start: 04-24-2024 Evaluation and management of inpatient LUNA [facility] Start: 04-24-2024 End: 04-25-2024 Evaluation and management of inpatient LUNA [facility] Start: 04-22-2024 End: 04-22-2024 ambulatory [facility] Start: 03-21-2024 End: 03-23-2024 ambulatory [facility] Start: 01-25-2024 End: 01-27-2024 [facility] Start: 01-25-2024 End: 01-27-[address] [facility] Start: 01-25-2024 End: 01-27-2024 Subsequent hospital visit by physician Luna Street MD Work Phone: [facility] Comment on above: Arrived Start: 01-24-2024 End: 01-26-2024 Subsequent hospital visit by physician Luna Street MD Work Phone: [facility] Comment on above: Arrived Start: 01-24-2024 End: 01-26-[address] [facility] Start: 12-06-2023 End: 12-06-2023 ambulatory [facility] Start: 12-03-2023 End: 12-03-2023 ambulatory [facility] Start: 11-01-2023 End: 11-01-2023 [facility] Start: 10-17-2023 End: 10-24-2023 Evaluation and management of inpatient CARY SANTOS [facility] Start: 03-26-2023 End: 03-27-[address] CARY SANTOS . Facility:[facility] Start: 02-21-2023 End: 02-22-[address] CARY SANTOS . Facility:[facility] Start: 02-01-2023 End: 02-02-[address] CARY SANTOS . Facility:[facility] Start: 12-01-2022 End: 12-01-[address] CARY SANTOS . Facility:[facility] Start: 10-26-2022 End: 10-27-2022 ambulatory [facility] Start: 10-09-2022 End: 10-09-2022 ambulatory [facility] Start: 10-04-2022 End: 10-05-2022 ambulatory Nathan BRAMBILA Facility: [facility] Start: 09-01-2022 End: 09-02-2022 ambulatory Nathan BRAMBILA [facility]: [facility] Start: 09-01-2022 End: 09-01-2022 Patient encounter procedure Nathan BRAMBILA [facility] Start: 08-28-2022 End: 08-29-[address] CARY SANTOS . Facility: Start: 08-18-2022 ambulatory Nathan BRAMBILA Facility : [facility] Start: 08-18-2022 ambulatory Nathan BRAMBILA Facility : [facility] Start: 05-15-2022 End: 05-15-2022 Subsequent hospital visit by physician [facility] [employer] Rm Levy [facility] Comment on above: Arrived Start: 04-27-2022 End: 04-28-2022 Evaluation and management of inpatient DR CARY SANTOS . Facility: Start: 03-27-2022 End: 03-27-2022 Subsequent hospital visit by physician Cary Santos MD Work Phone: [facility] Start: 03-18-2022 End: 03-18-2022 Subsequent hospital visit by physician Cary Santos MD Work Phone: [facility] Start: 09-13-2017 End: 09-18-2017 Evaluation and management of inpatient ESTELA WOMACK Facility:[facility] Procedures Date Procedure Procedure Detail Performing Clinician Start: 05-23-2024 Duplex scan extracranial art compl bi study Luna Musa MD Work Phone: Start: 01-25-2024 Myocardial spect multiple studies Luna [...] nerve Nathan BRAMBILA Large intestine excision Robert hadale BRAMBILA Lumbar spinal fusion Nathan BRAMBILA Repair of incisional hernia Nathan BRAMBILA Tonsillectomy and adenoidectomy Nathan BRAMBILA Plan of Treatment Date Care Activity Detail Author Start: 04-22-2025 GFR test (Diabetes, CKD 3-4, OR last GFR 15-59) GFR test (Diabetes, CKD 3-4, OR last GFR 15-59) [facility] Start: 12-03-2024 GFR test (Diabetes, CKD 3-4, OR last GFR 15-59) GFR test (Diabetes, CKD 3-4, OR last GFR 15-59) [facility] Start: 11-05-2024 End: 11-05-2024 Patient encounter procedure 11/05/2024 9:45 AM EST Office Visit [address] [place] [address] Luna Musa MD [address] [place] [address] 6 mth carotid stent [facility] Comment on above: 6 mth carotid stent Start: 10-18-2024 Hemoglobin A1c measurement A1C test (Diabetic or Prediabetic) [facility] Start: 09-16-2024 End: 09-16-2024 Patient encounter procedure 09/16/2024 11:30 AM EDT Office Visit [id number] Luna [address] MD Formerly named [facility] [address] [address] 6 MO F/U [employer] [facility] Comment on above: 6 MO F/U Start: 06-26-2024 Influenza vaccination Flu vacc ine (Season Ended) [facility] Start: 05-04-2024 Annual Wellness Visi t (Medicare) Annual Wellness Visit (Medicare) [facility] Start: 01-07-2024 Annual Wellness Visi t (Medicare) Annual Wellness Visit (Medicare) [facility] Start: 07-27-2023 COVID-19 Vaccine ( season) COVID-19 Vaccine ( season) [facility] Start: 06-26-2023 Influenza vaccination Flu vaccine (# 1) [facility] [employer] Start: 03-18-2023 Creatinine measurement Creatinine [facility] Start: 03-18-2023 Lipid panel Lipids [facility] Start: 03-18-2023 Potassium [Moles/volume] in Serum or Plasma Potassium [facility] Start: 11-08-2022 End: 11-08-2022 Patient encounter procedure 11/08/2022 Office Visit Vascular Surgery Luna Musa MD [address] [place] [address] [address] [place] [id number] [facility] Start: 07-27-2022 Influenza vaccination Flu vacc ine (Season Ended) [facility] Start: 2016 Screening for malign ant neoplasm of breast Breast cancer screen [facility] Start: 2016 Shingles Vaccine (1 of 2) Shingles Vaccine (1 of 2) [facility] Start: 2011 Screening for malign ant neoplasm of colon [facility] Start: 2006 Screening for malign ant neoplasm of breast Breast cancer screen [facility] Start: 1996 Screening for malign ant neoplasm of cervix [facility] Start: 1987 Screening for malign ant neoplasm of cervix Pap smear [facility] Start: 1985 DTaP/Tdap/Td vaccine (1 - Tdap) DTaP/Tdap/Td vaccine (1 - Tdap) [facility] Start: 1984 Glaucoma screening Diabetic retinal exam [facility] Start: 1984 Hepatitis C screening Hepatitis C sc reen [facility] Start: 1984 Urine screening for protein Diabetic Alb to Cr ratio (uACR) test [facility] Start: 1981 HIV screening HIV screen [facility] Start: 1978 Depression Screen Depression Screen [facility] Start: 1976 Diabetic foot examination Diabetic foot exam [facility] Start: 1976 Lipid panel Lipids [facility] Start: 1972 Pneumococcal 0-64 ye ars Vaccine (1 - PCV) Pneumococcal 0-64 years Vaccine (1 - PCV) [facility] Start: 1972 Pneumococcal 0-64 ye ars Vaccine (1 of 2 - PCV) Pneumococcal 0-64 years Vaccine (1 of 2 - PCV) [employer] [facility] Start: 1966 Hepatitis B vaccine (1 of 3 - 3-dose series) Hepatitis B vaccine (1 of 3 - 3-dose series) [employer] End: 05-15-2022 Basic metabolic 2000 panel - Serum or Plasma Basic Metabolic Panel Lab Routine One Time for 1 Occurrences starting 05/15/2022 until 05/15/2022 [employer] Phone: Comment on above: One Time for 1 Occur rences starting 05/15/2022 until 05/15/2022 End: 05-15-2022 CBC panel - Blood by Automated count CBC Lab Routine One Time for 1 Occurrences starting 05/15/2022 until 05/15/2022 [employer] Phone: Comment on above: One Time for 1 Occur rences starting 05/15/2022 until 05/15/2022 Oxygen therapy [[facility] Data Set] Initiate Oxygen Therapy Protocol Respiratory Care Routine As Needed until discontinued starting 05/15/2022 [employer] Phone: Comment on above: As Needed until disc ontinued starting 05/15/2022 End: 05-15-2022 POC CHEMISTRY (NA,K,ICA,GLU,CALC HCT/HGB,LACTATE,CREA,CL ) POC CHEMISTRY (NA,K,ICA,GLU,CALC HCT/HGB,LACTATE,CREA,CL ) Point of Care Testing STAT One Time for 1 Occurrences starting 05/15/2022 until 05/15/2022 [employer] Phone: Comment on above: One Time for 1 Occur rences starting 05/15/2022 until 05/15/2022 Payers Date Payer Category Payer Medicare [id number] 2023 Unknown [id number] 1966 Unknown [id number] 2.16.8 40.1.482679.3.579.2.727 1966 Unknown [id number] 2.16.8 40.1.640930.3.579.2.727 1966 Unknown [id number] 2.16.8 40.1.386904.3.579.2.727 1966 Unknown [id number] 2.16.8 40.1.740519.3.579.2.727 1966 Unknown [id number] 2.16.84 0.1.188291.3.579.2.593 1966 Unknown [id number] 2.16.84 0.1.460957.3.579.2.593 1966 Unknown [id number] 2.16.84 0.1.513388.3.579.2.593 1966 Unknown [id number] 2.16.84 0.1.866761.3.579.2.593 1966 Unknown [id number] 2.16.84 0.1.044874.3.579.2.593 1966 Unknown [id number] 2.16.84 0.1.539244.3.579.2.593 1966 Unknown [id number] 2.16. 840.1.277128.3.579.2.175 1966 Unknown [id number] 2.16. 840.1.989462.3.579.2.175 1966 Unknown [id number] 2.16. 840.1.012395.3.579.2.175 1966 Unknown [id number] 2.16.8 40.1.562729.3.579.2.173 1966 Unknown [id number] 2.16.8 40.1.370350.3.579.2.173 1966 Unknown [id number] 2.16.8 40.1.096442.3.579.2.173 1966 Unknown [id number] 2.16.8 40.1.176661.3.579.2.173 1966 Unknown [id number] 2.16.8 40.1.430936.3.579.2.173 1966 Unknown [id number] 2.16.8 40.1.686313.3.579.2.173 1966 Unknown [id number] 2.16.8 40.1.163114.3.579.2.173 1966 Unknown [id number] 2.16.8 40.1.926076.3.579.2.173 1966 Unknown [id number] 2.16.8 40.1.258322.3.579.2.173 1959 Medicaid [id number] 1959 Private Health Insurance [id number] Unknown [id number] Social History Date Type Detail Facility Start: 11-30-2021 End: 04-09-2024 Tobacco smoking status MOIS Smokes tobacco daily [facility] Phone: History of tobacco use Cigarette Smoker [employer] Phone: Start: 11-30-2021 End: 12-06-2023 Cigarettes smoked current (pack per day) - Reported 1 [facility] [employer] Start: 11-30-2021 End: 04-09-2024 Tobacco use and exposure Smokeless tobacco non-user [employer] [facility] Phone: Start: 11-30-2021 End: 05-07-2024 Alcohol intake Lifetime non-drinker (finding) [facility] Phone: Start: 1965 Sex Assigned At Not on file [employer] Phone: Start: 09-01-2022 Tobacco smoking status Heavy t obacco smoker (finding) [facility] Tobacco smoking status Never [facility] [place] Start: 12-06-2023 End: 01-07-2024 Sex Assigned At Female [facility] Start: 10-23-2023 Education 13 [facility] Functional Status Date Assessment Result Facility 09-01-2022 Functional Status N/A [facility] Clinical Notes 05-15-2022 to 01-24-2024 Carmen Still RN - 01/24/2024 8:30 AM Ed Reid RN - 05/15/2022 5:25 PM Nayan Reid RN - 05/15/2022 3:45 PM Nayan Reid RN - 05/15/2022 12:45 PM EDTInstructions Note Date & Type Note Facility 01-24-2024 History of Present illness Narrative Instructed on objectives and procedure of lexiscan/cardiolite stress test. documented in this encounter [facility] 10-09-2022 Note Neurosurgery Consult Chief Complaint: Back [...] Every Day Packs (more content not included)... [facility] 09-01-2022 Note Chief Complaint consultation for skin [...] drugs (Unknown) Social (more content not included)... [facility] Comment on above: Result Comment: Elec tronically Signed By: KOSTA BRIONES, Nathan Harvey\Date and Time Signed: 09/01/22 13:30 EDT 05-15-2022 History of Present illness Narrative All discharge instructions explained to patient and daughter. Emphasis in taking plavix and instructions to make 2 week follow up appointment. Papers signed and patient discharged per wheelchair with daughter and belongings Ambulated to bathroom and in halls. Gait steady.. Received post procedure to [facility] to room 8. Assessment obtained. Restrictions reviewed [...] and physical complete. documented in this encounter [facility] Work Phone: 05-15-2022 Hospital Discharge instructions Jen Reid RN - 05/15/2022 Images [...] Where can you learn more? Go to [email or web address] and sign in to your [employer] account. Enter C643 in the Search Health [...] SCRIPT GIVEN [x] WERE MEDS RECONCILED, WAS [employer] INFORMATION ON MEDS GIVEN TO PT. [x] PRINT DISCHARGE MED LIST CHECK AVS FOR CURRENT MEDS [x] WAS STENT CARD GIVEN TO PT. documented in this encounter [employer] Work Phone: Evaluation + Plan note Future Appointments Appointment Date:09/20/2022 03:20:00 PM Scheduled Provider:Nathan BRAMBILA MD Location:[facility] Appointment Type: Procedure 30 [facility] [place] Evaluation note Diagnosis Bilateral carotid artery stenosis Occlusion and stenosis of multiple and bilateral precerebral arteries without mention of cerebral infarction documented in this encounter [facility] course Narrative No data available for this section [facility] Discharge instructions No data available for this section [facility] [place] Progress note No data available for this section [facility] Reason for visit Narrative* Auth/Cert Specialty Diagnoses / Procedures Referred By Priscilla cunha Referred To Contact [employer] [address] [place] [address] Referral ID Status Reason Start Date Expiration Date Visits Re quested Visits Authorized [id number] 1 1 [employer] Phone: Summary Purpose Family History No Family History Records FoundNo Family History Records FoundNo Family History Records FoundNo Family History Records FoundNo Family History Records FoundNo Family History Records FoundNo Family History Records FoundNo Family History Records Found Advance Directives No Advanced Directives Records FoundDocuments on File Type Date Recorded 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 ACP-Advance Directive 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 [employer] Documents on File Type Date Recorded 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 ACP-Advance Directive 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 Latest Code Status on File Code Status Date Activated Date Inactivated Comments Full Code 05/15/2022 9:19 AM Latest Code Status on File Code Status Date Activated Date Inactivated Comments Full Code 12/06/2023 7:47 AM 12/06/2023 7:03 PM Code Status History Code Status Date Activated Date Inactivated Comments Full Code 10/17/2023 7:01 PM 10/24/2023 7:09 PM Full Code 05/15/2022 9:19 AM 05/16/2022 2:39 AM Reason for Referral Specialty Diagnoses / Procedures Referred By Priscilla cunha Referred To Contact Diagnoses Bilateral carotid artery stenosis Procedures Vascular duplex carotid bilateral Luna Musa MD [address] [place] [address] [address] [place] [address] Referral ID Status Reason Start Date Expiration Date Visits Re quested Visits Authorized [id number] Open 05/07/2024 05/07/2025 1 1 Additional Source Comments INFORMATION SOURCE (unrecogn ized section and content) DATE CREATED AUTHOR 05/21/2018 [facility] DATE CREATED AUTHOR AUTHOR'S ORGANIZ ATION 08/28/2022 [facility] DATE CREATED AUTHOR AUTHOR'S ORGANIZ ATION 10/05/2022 [facility] DATE CREATED AUTHOR AUTHOR'S ORGANIZ ATION 10/27/2022 [facility] DATE CREATED AUTHOR AUTHOR'S ORGANIZ ATION 04/06/2023 [facility] DATE CREATED AUTHOR AUTHOR'S ORGANIZ ATION 04/26/2024 [facility] DATE CREATED AUTHOR AUTHOR'S ORGANIZ ATION 05/08/2024 [facility] DATE CREATED AUTHOR AUTHOR'S ORGANIZ ATION 05/26/2024 [facility] Care Teams (unrecognized sec tion and content) Telephone Sales Representative Relationship Specialty Start Date End Date Cary Santos MD [address] [place] [address] PCP - General 01/31/16 Telephone Sales Representative Relationship Specialty Start Date End Date Cary Santos MD [address] [place] [id number] PCP - General 01/31/16 Telephone Sales Representative Relationship Specialty Start Date End Date Cary Santos MD [address] [place] [address] PCP - General 01/31/16 Telephone Sales Representative Relationship Specialty Start Date End Date Cary Santos MD [address] [place] [address] PCP - General 01/31/16 Telephone Sales Representative Relationship Specialty Start Date End Date Cary Santos MD [address] [place] [address] PCP - General 01/31/16 Telephone Sales Representative Relationship Specialty Start Date End Date Cary Santos MD [address] [place] [address] PCP - General 01/31/16 Telephone Sales Representative Relationship Specialty Start Date End Date Cary Santos MD [address] [place] [address] PCP - General 01/31/16 Ordered Prescriptions (unrec [...] heart artery stent Coronary artery disease of [place] artery of [place] heart with stable angina pectoris (HCC) Z95.5 (ICD-10-CM) - H/O heart artery stent Procedures Nuclear stress test with myocardial perfusion CHG MYOCARDIAL SPECT MULTIPLE STUDIES 79197 - CHG MYOCARDIAL SPECT MULTIPLE STUDIES Luna Street MD [address] [address] Referral ID Status Reason Start Date Expiration Date Visits Re quested Visits Authorized [id number] Closed 01/01/2024 03/01/2024 3 3 Specialty Diagnoses / Procedures Referred By Contericka t Referred To Contact Diagnoses Bilateral carotid artery stenosis Procedures Vascular duplex carotid bilateral Luna Musa MD [address] [facility] [place] [address] Referral ID Status Reason Start Date Expiration Date Visits Re quested Visits Authorized [id number] Open 05/07/2024 05/07/2025 1 1 FOR RECORDS PERTAINING TO PATIENTS WHO ARE [...] BE BASED ON THE PRIMARY CLINICAL RECORDS. [employer] provides no warranty or guarantee of the accuracy or completeness of information in this document.
[2024-08-12 07:24] LABS: Basophils Absolute Auto 0.1 10^3/uL (0.0-0.1); Basophils Percent Auto 0.6 % (0.2-2.0); Eosinophils Absolute Auto 0.1 10^3/uL (0.0-0.7); Eosinophils Percent Auto 1.1 % (0.9-7.0); Hematocrit 43.1 % (36.0-48.0); Hemoglobin 14.2 g/dL (12.0-16.0); Immature Granulocytes Abs Auto 0.06 10^3/uL (0.00-0.03); Immature Granulocytes Pct Auto 0.6 % (0.0-0.5); Lymphocytes Absolute Auto 2.2 10^3/uL (1.2-3.8); Lymphocytes Percent Auto 20.5 % (20.5-60.0); Mean Corpuscular HGB Conc 32.9 g/dL (29.9-35.2); Mean Corpuscular Hemoglobin 29.2 pg (26.7-34.0); Mean Corpuscular Volume 88.5 fL (81.0-99.0); Mean Platelet Volume 11.1 fL (9.5-13.5); Monocytes Absolute Auto 0.9 10^3/uL (0.3-0.8); Monocytes Percent Auto 8.7 % (1.7-12.0); Neutrophils Absolute Auto 7.4 10^3/uL (1.4-6.5); Neutrophils Percent Auto 68.5 % (43.0-75.0); Platelet Count 190 10^3/uL (150-450); Red Blood Count 4.87 10^6/uL (4.20-5.40); Red Cell Distribution Width 14.9 % (11.0-15.0); White Blood Count 10.8 10^3/uL (4.0-11.0)
[2024-08-12 08:22] LABS: Alanine Aminotransferase 19 U/L (14-59); Albumin Globulin Ratio 0.8; Albumin Level 3.3 g/dL (3.4-5.0); Alkaline Phosphatase 187 U/L (46-116); Anion Gap 15.4; Aspartate Amino Transferase 12 U/L (15-37); BUN Creatinine Ratio 19.9; Bilirubin Total 0.7 mg/dL (0.2-1.0); Calcium 8.9 mg/dL (8.5-10.1); Carbon Dioxide 25.9 mmol/L (21.0-32.0); Chloride 102 mmol/L (98-107); Chol HDL Ratio 3.7; Cholesterol 129 mg/dL (<=200); Estimated GFR (African America 45 (>=60); Estimated GFR (Non-African Ame 37 (>=60); Free T3 2.84 pg/mL (2.18-3.98); Globulin 4.1 g/dL; Glucose 222 mg/dL (74-106); HDL Cholesterol 35 mg/dL (40-60); Potassium 4.3 mmol/L (3.5-5.1); Sodium 139 mmol/L (136-145); Thyroid Stimulating Hormone 0.777 uIU/mL (0.358-3.740); Total Protein 7.4 g/dL (6.4-8.2); Triglycerides 175 mg/dL (<=150)
[2024-08-12 08:23] LABS: Estimated Average Glucose 171 mg/dL; Glycohemoglobin A1C 7.6 % (4.5-6.2)
== END 2024-08-12 07:01 | disposition home or self-care (01) ==
LOC: LAB 07:03
PROVIDERS: PCP Family Medicine; Visit Provider Family Medicine
DX: I25.10 Atherosclerotic heart disease of native coronary artery without angina pectoris (principal); E10.9 Type 1 diabetes mellitus without complications; I50.9 Heart failure, unspecified; N17.9 Acute kidney failure, unspecified; Z12.11 Encounter for screening for malignant neoplasm of colon; R53.83 Other fatigue; E56.9 Vitamin deficiency, unspecified; I11.0 Hypertensive heart disease with heart failure
CPT/HCPCS: 36415; 80053; 80061; 82306; 83036; 84436; 84443; 84481; 85025

== ENCOUNTER 2024-10-07 09:32 | Outpatient (OUT) | payer MEDICARE, SELFPAY ==
--- NOTE | 2024-10-07 09:36 | CT_ITS ---
[address] [address] Patient Name: DOROTHY ADAMS MRN: [id number] date: 1965 Sex: F Assigned Patient Location: CT Current Patient Location: Accession/Order Number: [id number] Exam Date: 10/07/2024 09:40 Report Date: 10/09/2024 05:43 At the request of: CARY BENTON Procedure: CT lung screening low-dose EXAMINATION: CT lung screening low-dose HISTORY: Cigarette Nicotine Dependence COMPARISON: CT chest 09/14/2023, 02/21/2023 TECHNIQUE: Axial, Coronal, and Sagittal images were created without the administration of IV contrast material. Dose reduction techniques were achieved by using automated exposure control and/or adjustment of mA and/or kV according to patient size and/or use of iterative reconstruction technique. FINDINGS: LUNGS: Stable 6 mm nodule within posterior lateral right upper lobe just cephalad to the level of the hilum. Numerous small calcified granulomas bilaterally. PLEURA: No mass, effusion, or pneumothorax. VASCULATURE: No abnormality. NOEMY: No mass or pathologic adenopathy. MEDIASTINUM: No mass or pathologic adenopathy. CARDIAC: No enlargement, pericardial thickening, or pericardial effusion. Prior endovascular stenting. Coronary Artery calcifications: Coronary calcifications are heavy. AORTA: No aneurysm or dissection. CHEST WALL: No mass or axillary adenopathy BONES: No bone lesion or fracture. LIMITED ABDOMEN: No suspicious findings. Limited images of the upper abdomen. OTHER: Negative. CT/CT lung screening low-dose IMPRESSION: 1. Lung-RADS 2- Benign Appearance or Behavior. Nodules with a very low likelihood of becoming a clinically active cancer due to size or lack of growth. Follow-up CT Chest in 1 year. Electronically authenticated by: LAZARUS PARRA Date: 10/09/2024 05:43
== END 2024-10-07 09:33 | disposition home or self-care (01) ==
LOC: CT 09:32
PROVIDERS: PCP Family Medicine; Visit Provider Family Medicine
DX: F17.210 Nicotine dependence, cigarettes, uncomplicated (principal); R91.1 Solitary pulmonary nodule
CPT/HCPCS: 71271

== ENCOUNTER 2025-10-26 09:14 | Outpatient (OUT) | payer MEDICARE, SELFPAY ==
--- OUTSIDE RECORDS SUMMARY | 2025-10-26 09:19 | XMS_ITS | Clinical Summary ---
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 Role Phone Paul Santos MD Primary Care Provider [phone] Allergies Active AllergyReactionsCriticalityNoted DateCommentsSulfa Nxelpgdfpyd35/05/2022 Medications MedicationSigDispense QuantityRefillsLast FilledStart DateEnd DateStatus insulin glargine (Lantus) 100 UNIT/ML injection Inject under the skin at bedtime.Active insulin aspart protamine-insulin aspart (NovoLOG Mix 70-30) (70-30) 100 UNIT/ML injection Inject under the skin 2 (two) times a day with meals.Active aspirin 81 MG EC tablet Take 81 mg by mouth in the morning.Active atorvastatin (Lipitor) 80 MG tablet Take 80 mg by mouth in the morning.Active DULoxetine (Cymbalta) [address] capsule Take 60 mg by mouth in the morning. Do not crush or chew. .Active furosemide (Lasix) 40 MG tablet Take 40 mg by mouth in the morning.Active metoprolol succinate XL (Toprol-XL) 25 MG 24 hr tablet Take 25 mg by mouth in the morning. Do not crush or chew. .Active clopidogrel (Plavix) 75 MG tablet Take 75 mg by mouth in the morning.Active lisinopril 10 MG tablet Take 10 mg by mouth in the morning.Active pramipexole (Mirapex) 0.5 MG tablet Take 0.5 mg by mouth in the morning and 0.5 mg in the evening and 0.5 mg before bedtime.Active NIFEdipine CC (Adalat CC) 30 MG 24 hr tablet Take 30 mg by mouth in the morning. Take before meals. Do not crush, chew, or split. .Active tiZANidine (Zanaflex) 4 MG capsule Take 4 mg by mouth in the morning and 4 mg before bedtime.Active budesonide-formoterol (Symbicort) 80-4.5 MCG/ACT inhaler Inhale 2 puffs in the morning and 2 puffs before bedtime. Rinse mouth with water after use to reduce aftertaste and incidence of candidiasis. Do not swallow.. Active albuterol HFA 90 mcg/act inhaler Inhale 2 puffs every 4 (four) hours if needed for wheezing.Active Active Problems ProblemNoted DateDiagnosed DateChronic maxillary njhofwwqn38/09/2023oronary artery disease involving [place] coronary artery of [place] heart with angina /09/2023 Social History Tobacco UseTypesPacks/DayYears UsedDateSmoking Tobacco: Every DayCigarettes Smokeless Tobacco: Never Tobacco Cessation:Ready to Q uit: Not Asked; Counseling Given: Not Answered Alcohol UseStandard Drinks/WeekCommentsNot Currently0 (1 standard drink = 0.6 oz pure alcohol)CommentsUnknownSex and Gender InformationValueDate Recorded Sex Assigned at BirthNot on fileLegal EsmRsbndv44/15/2023 8:01 PM EDTGender IdentityNot on fileSexual OrientationNot on file Last Filed Vital Signs Vital SignReadingTime TakenCommentsBlood Rbhqrpjy96/55005/04/2023 11:33 AM EDT Pulse--Temperature--Respiratory Rate--Oxygen Saturation--Inhaled Oxygen Concentration--Rxdhsq275 kg (249 lb)05/04/2023 11:33 AM FYUDuvyfw697.1 cm (5' 5 )05/04/2023 11:33 AM EDTBody Mass Index41.44005/04/2023 11:33 AM EDT Plan of Treatment Not on file Insurance Care Teams Team MemberRelationshipSpecialtyStart DateEnd Paul Santos MD PCP - GeneralFamily Medicine04/12/23
--- OUTSIDE RECORDS SUMMARY | 2025-10-26 09:19 | XMS_ITS | Clinical Summary ---
Author Organization [facility] Address [address] [place] [address] Care Team Providers Care Stacker Name Role Phone Paul Santos MD Primary Care Provider [phone] Frankie Casey MD Unavailable [phone] Allergies Active AllergyReactionsCriticalityNoted DateCommentsSulfa (Sulfonamide Antibiotics)11/30/2021 Medications MedicationSigDispense QuantityRefillsLast FilledStart DateEnd DateStatus albuterol 90 mcg/actuation inhaler Inhale 2 puffs.Active aspirin 81 mg EC tablet Take 81 mg by mouth.Active atorvastatin (Lipitor) 80 mg tablet Take 80 mg by mouth.09/20/2021ctive budesonide-formoteroL (Symbicort) 160-4.5 mcg/actuation inhaler 10/24/2021ctive cholecalciferol (Vitamin D-3) 125 MCG (5000 UT) capsule 11/12/2021ctive clopidogrel (Plavix) 75 mg tablet Take 75 mg by mouth.05/15/2022ctive DULoxetine (Cymbalta) [address] capsule Take by mouth.11/20/2021ctive furosemide (Lasix) 40 mg tablet Take 40 mg by mouth.08/25/2022ctive insulin glargine (Lantus) 100 unit/mL injection Inject 46 Units under the skin in the morning and at bedtime.Active lisinopril 10 mg tablet Take 10 mg by mouth.11/05/2021ctive metoprolol tartrate (Lopressor) 25 mg tablet Take 25 mg by mouth.09/01/2022ctive NIFEdipine XL (Procardia XL) 30 mg 24 hr tablet 11/08/2021ctive pramipexole (Mirapex) 0.5 mg tablet Take by mouth.10/03/2021ctive tiZANidine (Zanaflex) 4 mg tablet Take 8 mg by mouth.11/24/2021ctive insulin asp prt-insulin aspart (NovoLOG Mix 70-30) 100 unit/mL (70-30) injection Inject under the skin with breakfast and with evening meal.Active insulin glargine (Lantus) 100 unit/mL injection Inject under the skin at bedtime.Active apixaban (Eliquis) 5 mg tablet Take 5 mg by mouth in the morning and at bedtime.Active dofetilide (Tikosyn) 250 mcg capsule Take 250 mcg by mouth in the morning and at bedtime.Active pantoprazole (ProtoNix) 40 mg EC tablet Take 40 mg by mouth before breakfast. Do not crush, chew, or split.Active magnesium oxide (Mag-Ox) 400 mg tablet 400 mg in the morning.Active potassium chloride CR (Klor-Con M10) 10 mEq ER tablet Take 10 mEq by mouth in the morning and at bedtime. Do not crush or chew.Active Active Problems ProblemNoted DateDiagnosed DateCarotid stenosis, asymptomatic, bilateral 4BMI 33.0-33.9,adult2Cervical vgfymoubmpy13/14/2022Chronic obstructive pulmonary aswzpmv2510/09/2022oronary artery xbagcigc59/14/2022 Xkknwcul81/14/2022History of small bowel gkphknhfypq74/14/0706Qrftgryp18/14/2022 Ischemic bowel cfonxvg5310/09/2022Low back pain mmxybtea17/14/2022Neoplasm of uncertain behavior of skin of cgobrts2510/09/2022ight lfdjocjsmp14/14/2022enile solar mckaliujo31/14/8171Nvtwzu29/14/2022VT (supraventricular tachycardia) 10/09/2022Lumbar uujhbgqvtkqcq94/14/2022Ventral pzqudj9110/09/2022 Immunizations ImmunizationAdministration DatesNext DueInfluenza, Axsdytuaqbd95/05/2017Zoster, Fnbkkiffthl60/12/2022,10/21/2021 Social History Tobacco UseTypesPacks/DayYears UsedDateSmoking Tobacco: Every DayCigarettes Smokeless Tobacco: Never Tobacco Cessation:Ready to Q uit: Not Asked; Counseling Given: Not Answered Alcohol UseStandard Drinks/WeekCommentsNever0 (1 standard drink = 0.6 oz pure alcohol)UT Safety & EnvironmentAnswerDate RecordedFear of Current or Ex-Partner Not on file01/17/2024Emotionally AbusedNot on file01/17/2024hysically AbusedNot on file01/17/2024Sexually AbusedNot on file01/17/2024hysically or Sexually AbusedNot on file01/17/2024CommentsUnknownSex and Gender Information ValueDate RecordedSex Assigned at BirthNot on fileLegal ZadUmikxx80/29/2022 10:07 PM EDTGender IdentityNot on fileSexual OrientationNot on file Last Filed Vital Signs Vital SignReadingTime TakenCommentsBlood Adypzsrz687/6905 7:52 AM EDT Ibiya365604/25/2024 7:52 AM WXGXsbmqnqyjjv59 ??C (98.6 ??F)04/25/2024 7:52 AM EDT Respiratory Rayl5630 7:52 AM EDTOxygen Bnfemudygd62%04/25/2024 7:52 AM EDTInhaled Oxygen Concentration--Nqzwkf056 kg (223 lb 3.2 oz)04/25/2024 3:52 AM NBOSyxkqp172.7 cm (5' 8 )09/22/2020 8:58 AM EDTBody Mass Index33.9409/22/2020 8:58 AM EDT Plan of Treatment Health MaintenanceDue DateLast DoneCommentsCT Yfpiimxsizoq1966Colonoscopy 1966Colorectal Cancer Qtzkxhjii1966Diabetes: Hemoglobin A1C 1966FIT-DNA1966FIT1966FOBT1966Medicare Annual Wellness (AWV)1966 0064Vcjgpfbjgyygf1966Diabetes: Retinopathy Vldkvruez51/24/1976 Depression Btoqzwplu12/24/1978Diabetes: Urine Protein Qeaxomvyu80/24/1985 Hepatitis B Vaccines (1 of 3 - 19+ 3-dose series)1985Pneumococcal Vaccine: Pediatrics (0 to 5 Years) and At-Risk Patients (6 to 64 Years) (1 of 2 - PCV) 1985Pap Smear1987Adult Aymezqz3501/19/1988Cervical Cancer Screening 1996HPV/Eoykli8501/19/19966627Fipknpgvd91/24/2006COVID-19 Vaccine ( season), 02/08/2021, 01/18/2021Influenza Vaccine (#1) /03/2017Zoster AgjtkhvyDftbpvsgl15/12/2022, 10/21/2021HIB Vaccines Aged OutNo longer eligible based on patient's age to complete this topicHPV VaccinesAged OutNo longer eligible based on patient's age to complete this topic IPV VaccinesAged OutNo longer eligible based on patient's age to complete this topicMeningococcal B VaccineAged OutNo longer eligible based on patient's age to complete this topicMeningococcal VaccineAged OutNo longer eligible based on patient's age to complete this topicRotavirus VaccinesAged OutNo longer eligible based on patient's age to complete this topic Medical Devices ImplantedTypeAreaManufacturerDevice IdentifierShelf Expiration DateModel / Serial / LotStent,Xact,Carotid,9x30 - [id number] - [id number] Implanted:Qty: 1 on 04/24/2024 by Lefty Santos MD [facility]entABB[facility] [id number] / [id number] / [id number] Insurance Advance Directives * Full Code (Latest Code Status on File) Date ActivatedDate InactivatedComments04/24/2024 5:56 PM04/25/2024 2:10 PM Care Teams Team MemberRelationshipSpecialtyStart DateEnd Date Paul Santos MD [address] [place] [address] PCP - Ghlxyhu63/10/22 Frankie Casey MD [address] [place] [id number] MzopwarAtfgtaqcqlfr78/10/22
--- OUTSIDE RECORDS SUMMARY | 2025-10-26 09:19 | XMS_ITS | Clinical Summary ---
Author Organization [facility] Address [address], [address] [place] [address] Care Team Providers Care Raftsman Name Role Phone Paul Santos MD Primary Care Provider [phone] Allergies Active AllergyReactionsCriticalityNoted DateCommentsSulfa Sdkxrdzpdzd53/05/2022 Medications MedicationSigDispense QuantityRefillsLast FilledStart DateEnd DateStatus atorvastatin (LIPITOR) 80 MG tablet Take 1 tablet by mouth daily09/20/2021ctive SYMBICORT 160-4.5 MCG/ACT AERO Inhale 2 puffs into the lungs10/24/2021ctive DULoxetine (CYMBALTA) 60 MG extended release capsule Take 1 capsule by mouth daily11/20/2021ctive pramipexole (MIRAPEX) 0.5 MG tablet Take 1 tablet by mouth daily10/03/2021ctive albuterol sulfate HFA (PROVENTIL;VENTOLIN;PROAIR) 108 (90 Base) MCG/ACT inhaler Inhale 2 puffs into the lungs every 6 hours as needed for WheezingActive insulin aspart (NOVOLOG) 100 UNIT/ML injection cartridge Inject into the skin 3 times daily (before meals)Active dofetilide (TIKOSYN) 250 MCG capsule Take 1 capsule by mouth every 12 hours 60 capsule ctive spironolactone (ALDACTONE) 25 MG tablet Take 1 tablet by mouth daily 30 tablet ctive HYDROcodone-acetaminophen (NORCO) 5-325 MG per tablet Take 1 tablet by mouth every 6 hours as needed for Pain.10/13/2024ctive tolterodine (DETROL LA) 2 MG extended release capsule Take 1 capsule by mouth daily10/14/2024ctive pantoprazole (PROTONIX) 40 MG tablet TAKE ONE TABLET BY MOUTH ONCE EVERY MORNING BEFORE BREAKFAST 90 tablet tive clopidogrel (PLAVIX) 75 MG tablet TAKE 1 TABLET BY MOUTH DAILY 90 tablet 5Active Insulin Glargine (TOUJEO SOLOSTAR SC) Inject 46 Units into the skin in the morning and at bedtimeActive ENTRESTO 24-26 MG per tablet Take 1 tablet by mouth 2 times daily05/25/2025tive JARDIANCE 10 MG tablet Take 1 tablet by mouth daily05/25/2025tive bumetanide (BUMEX) 1 MG tablet Take 1 tablet by mouth daily 90 tablet 5Active apixaban (ELIQUIS) 5 MG TABS tablet Indications:Atrial flutter, unspecified type (HCC)Take 1 tablet by mouth 2 times daily 180 tablet 5Active metoprolol succinate (TOPROL XL) 50 MG extended release tablet Take 0.5 tablets by mouth in the morning and at bedtime 180 tablet 5Active Active Problems ProblemNoted DateDiagnosed DateHistory of atrial geowwti6312/06/2023OSA (obstructive sleep apnea)10/30/2023cute on chronic diastolic heart failure 10/30/2023aroxysmal atrial fjsazcerowgw92/27/2023SSS (sick sinus syndrome) 10/22/2023trial fibrillation with RVR112/22/2022rimary qgvtdixukzga70/23/2023 Uncontrolled type 2 diabetes mellitus with blemlocfsdbey02/23/2023Obesity, Class III, BMI 40-49.9 (morbid obesity)10/18/2023KI (acute kidney injury)10/18/2023 Acute heart failure with preserved ejection lrzuywod34/23/2023nemia, normocytic mocbtpdzmjqo60/23/7352Pjeujronwxfp66/23/2023ongestive heart failure of unknown fnoiohmz26/22/9263Glkjh44/26/2023trial mbzcmgg1308/14/2023Mixed hyperlipidemia 08/14/2023H/O heart artery stent08/14/2023oronary artery disease of [place] artery of [place] heart with stable angina oaqjuijl13/19/2023PAD (peripheral artery disease)08/14/2023 Encounters DateTypeDepartmentCare XgaeOwgasggwivc18/14/2025 1:15 PM ESTOffice Visit [place] [facility] [place] [address] [address], [address] [place] [address] Lily Manuel, CASE ADVOCATE - 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 PUBLIC Essential hypertension (Primary Dx); Mixed hyperlipidemia; Heart failure with preserved ejection fraction (HFpEF), unspecified HF chronicity (HCC); Coronary artery disease involving [place] coronary artery of [place] heart without angina pectoris; PAF (paroxysmal atrial fibrillation) (HCC); History of cardiac ablation; Obesity (BMI 30-39.9)09/11/2025Telephone [place] [facility] [place] [address] [place] [address], [place] [address] Radha Mosquera MD Appointment Request, Oypjypt5909/10/2025 7:35 AM EDTAnesthesia Event [facility] [address] [place] [address] Jj Gonzalez MD 09/10/2025 7:30 AM EDT - 09/10/2025 10:30 AM EDTSurgery [facility] [address] [place] [address] Radha Mosquera MD meenakshi / Ablation A-fib w/anes / carto09/10/2025 6:38 AM EDT - 09/10/2025 2:20 PM EDTHospital Encounter [facility] [address] [place] [address] Radha Mosquera MD Typical atrial flutter (HCC) (Primary Dx); Atrial fibrillation, unspecified type (HCC); Persistent atrial fibrillation (HCC) Discharge Disposition: Home or Self Care09/10/20252418Jowlft15/23/2025 12:46 PM EDT - 08/20/2025 11:59 PM EDTHospital Encounter [facility] Scan [address] [place] [address] Radha Mosquera MD Persistent atrial fibrillation (HCC) Discharge Disposition: Home or Self Carefrom Last 3 Months Social History Tobacco UseTypesPacks/DayYears UsedDateSmoking Tobacco: Every DayCigarettes Smokeless Tobacco: Never Tobacco Cessation:Ready to Q uit: Not Asked; Counseling Given: Not Answered Alcohol UseStandard Drinks/WeekCommentsNever0 (1 standard drink = 0.6 oz pure alcohol)Interpersonal Safety Domain Source: IP Abuse ScreeningAnswerDate RecordedPhysical yutkjVquuie19/16/2025Verbal tlbnyMvllun90/16/2025Emotional rgthsWenugm97/16/2025Financial osrplZkbqje29/16/2025Sexual tiajeMkyjep60/16/2025 EducationAnswerDate RecordedWhat is the highest level of school you have completed or the highest degree you have received?High school /28/2023 CommentsUnknownSex and Gender InformationValueDate RecordedSex Assigned at MvgmqZbwypt59/22/2025 10:22 AM EDTLegal DogMchwql53/10/2013 4:19 PM ESTGender WcititmpXlndap64/22/2025 10:22 AM EDTSexual LvpznryobkuBedfioey46/22/2025 10:22 AM EDT Last Filed Vital Signs Vital SignReadingTime TakenCommentsBlood Zipgtvyy386/7010/09/2025 1:09 PM EST Cdwcz428110/09/2025 1:09 PM VYLSknilaxrjet21.9 ??C (96.6 ??F)09/10/2025 1:30 PM EDTRespiratory Gwtr384912/09/2024 1:09 PM ESTOxygen Bbbtwjturb68%10/09/2025 1:09 PM ESTInhaled Oxygen Concentration--Jddbrp695.1 kg (234 lb)10/09/2025 1:09 PM KNKVrxzmh504.1 cm (5' 5 )10/09/2025 1:09 PM ESTBody Mass Index38.9410/09/2025 1:09 PM EST Plan of Treatment DateTypeDepartmentCare Team (Latest Contact Info)Ncneeyysuyp68/14/2026 1:00 PM ESTOffice Visit [place] [facility] [place] [address], [address] [place] [address] Radha Mosquera MD [address] [facility] [address] [place], [place] [id number] 3 month f/u006/02/2026 10:00 AM EDTOffice Visit [facility] Part of [address] [place] [address] Lefty Santos MD [address] [place] [address] Bilateral Carotid artery stenosis; 1 year follow up with Vascular duplexHealth MaintenanceDue DateLast DoneCommentsDiabetic foot exam1976Depression Fnksti4701/19/1978HIV spitfs7001/19/1981Diabetic Alb to Cr ratio (uACR) test 1984Diabetic retinal exam1984Hepatitis C pintkc6201/19/1984 DTaP/Tdap/Td vaccine (1 - Tdap)1985Hepatitis B vaccine (1 of 3 - 19+ 3- dose series)1985Pneumococcal 50+ years Vaccine (1 of 2 - PCV)1985Pap smear1987Cervical cancer dttmuf9301/19/1996HPV (without or with Pap) 1996Breast cancer pgmjbb3601/19/20061325Evakhvzztff35/24/2011Colorectal Cancer Udjzbl3301/19/2011FIT/FOBT: Average risk2011Fecal-DNA (Cologuard): Average risk2011Sigmoidoscopy/CT /24/4045Bvwqct85/23/202304/ Annual Wellness Visit (Medicare)4A1C test (Diabetic or Prediabetic) /, 01/31/2016Flu vaccine (#1)COVID-19 Vaccine (4 - 2025-26 season)5112/21/2020, 02/08/2021, 01/18/2021GFR test (Diabetes, CKD 3-4, OR last GFR 15-59)61, 04/22/2024, 12/03/2023, Additional history existsShingles sbxwohkKryqngamb28/12/2022, 10/21/2021Hepatitis A vaccineAged OutNo longer eligible based on patient's age to complete this topicHib vaccineAged OutNo longer eligible based on patient's age to complete this topicMeningococcal (ACWY) vaccineAged OutNo longer eligible based on patient's age to complete this topicMeningococcal B vaccineAged OutNo longer eligible based on patient's age to complete this topicPolio vaccineAged OutNo longer eligible based on patient's age to complete this topic Procedures Procedure NamePriorityDate/TimeAssociated DiagnosisCommentsMICROSCOPIC OQYLJIJCVFEmmzsjz57/16/2025 2:11 PM EDT URINALYSISSunquest Label Print09/10/2025 2:11 PM EDT POC GLUCOSE YMQXFWRSBZPMistiem18/16/2025 1:32 PM EDT PREVIOUS IGINFTXZPQHN09/16/2025 12:48 PM EDTLACTATE ANGOQDCMEMFEBGBBZ16/16/2025 12:48 PM EDT WCRQZYXNKINVQCM99/16/2025 12:48 PM EDT COMPREHENSIVE METABOLIC PANEL W/ REFLEX TO MG FOR LOW KSTAT1 12:48 PM EDT ELECTROPHYSIOLOGY PKQEOXYCVYgpdxeb56/16/2025 11:00 AM EDT Atrial fibrillation, unspecified type (HCC) INVASIVE VASCULAR BKOLAEOTHZhfxmry24/16/2025 11:00 AM EDT Atrial fibrillation, unspecified type (HCC) HEMOGLOBIN FREE, PLASMASunquest Label Print09/10/2025 11:00 AM EDT CBC WITH AUTO DIFFERENTIALSunquest Label 09/10/2025 11:00 AM EDT RETICULOCYTESSunquest Label 09/10/2025 11:00 AM EDT ACTIVATED CLOTTING ZOJHBackbia49/16/2025 10:26 AM EDT ACTIVATED CLOTTING WZJIQpaoldf93/16/2025 10:00 AM EDT ACTIVATED CLOTTING BDJOMamvzqc71/16/2025 9:35 AM EDT ACTIVATED CLOTTING FFJKOmohrno25/16/2025 9:10 AM EDT ACTIVATED CLOTTING MBVRKomzakj48/16/2025 8:45 AM EDT PLATELET COUNTStat Sunquest Label 09/10/2025 7:27 AM EDT POCT HQPZMYEWcwlydq03/16/2025 7:20 AM EDT UREA N (POC)Oetejmw1309/10/2025 7:20 AM EDT CREATININE W/GFR POINT OF BGDCDzvhhqy92/16/2025 7:20 AM EDT CHLORIDE (POC)Cuplgzm4509/10/2025 7:20 AM EDT POTASSIUM (POC)Xhvhwuj6909/10/2025 7:20 AM EDT SODIUM (POC)Kykdpdw0309/10/2025 7:20 AM EDT HGB/DXOZfhjmqf46/16/2025 7:20 AM EDT EKG 12-ITIRRWZA92/16/2025 6:35 AM EDT CTA CORON EJECT FRAC WALL WXLUSYLkpthaa46/23/2025 1:55 PM EDT Persistent atrial fibrillation (HCC) CREATININE W/GFR POINT OF UYADXmenrqy27/23/2025 1:28 PM EDT HEMOGLOBIN G7VTovmomv46/23/2023 7:32 AM EST LIPID MQONJGjxobww36/23/2022 9:06 AM EDT from Last 3 Months or Most Recently Relevant to Health Maintenance Results * (ABNORMAL) Microscopic Urinalysis (09/10/2025 2:11 PM EDT)ComponentValueRef RangeTest MethodAnalysis TimePerformed AtPathologist SignatureWBC, UATOO NUMEROUS TO COUNT(A)0 TO 5 /HPF09/10/2025 2:11 PM EDTMERCY LABORATORIESRBC, UA 0 TO 20 TO 2 /HPF09/10/2025 2:11 PM EDTMERCY LABORATORIESCasts UA3 to 50 - 2 /LP09/10/2025 2:11 PM EDTMERCY LABORATORIESEpithelial Cells, UA0 TO 20 - 5 /HPF09/10/2025 2:11 PM EDTMERCY LABORATORIESBacteria, UAMANY(A)None09/10/2025 2:11 PM EDTMERCY LABORATORIESSpecimen (Source)Anatomical Location / Laterality Collection Method / VolumeCollection TimeReceived Time09/10/2025 2:11 PM EDT 09/10/2025 2:11 PM EDT Narrative Authorizing ProviderResult TypeResult StatusChandlee ann Mosquera MD URINE ORDERABLESFinal ResultPerforming OrganizationAddressCity/State/ZIP Code Phone Number [facility] [place] [address], [facility] [phone] * (ABNORMAL) Urinalysis (09/10/2025 2:11 PM EDT)ComponentValueRef RangeTest MethodAnalysis TimePerformed AtPathologist SignatureColor, UAYellowYellow 09/10/2025 2:11 PM EDTMERCY LABORATORIESTurbidity UACloudy(A)Clear09/10/2025 2:11 PM EDTMERCY LABORATORIESGlucose, Ur3+(A)NEGATIVE mg/dL09/10/2025 2:11 PM EDTMERCY LABORATORIESBilirubin, EaebkWOGJYFKOFVHXSKIG86/16/2025 2:11 PM EDT [facility] LABORATORIESKetones, UrineNEGATIVENEGATIVE mg/dL09/10/2025 2:11 PM EDT [facility] LABORATORIESSpecific Mcdonald, UA1.0201.003 - 1.6622809/10/2025 2:11 PM EDT [facility] LABORATORIESUrine HgbMODERATE(A)LUVPUNRS08/16/2025 2:11 PM EDTMERCY LABORATORIESpH, Urine5.55.0 - 8.010 2:11 PM EDTMERCY LABORATORIES Protein, UA2+(A)NEGATIVE mg/dL09/10/2025 2:11 PM EDTMERCY LABORATORIES Urobilinogen, UrineNormal0.0 - 1.0 EU/dL09/10/2025 2:11 PM EDTMERCY LABORATORIESNitrite, ZipvhDLWAETOBIJKCXAKV35/16/2025 2:11 PM EDTMERCY LABORATORIESLeukocyte Esterase, UrineMODERATE(A)DMVVUEQC31/16/2025 2:11 PM EDT [employer] LABORATORIESSpecimen (Source)Anatomical Location / LateralityCollection Method / VolumeCollection TimeReceived TimeUrine (Urine voided)09/10/2025 2:11 PM EDT1 2:11 PM EDT Narrative Authorizing ProviderResult TypeResult StatusChandramcaleb Mosquera MD URINE ORDERABLESFinal ResultPerforming OrganizationAddressCity/State/ZIP Code Phone Number [facility] [address] [place] [address], [facility] [place] [phone] * (ABNORMAL) POC Glucose Fingerstick (09/10/2025 1:32 PM EDT)ComponentValueRef RangeTest MethodAnalysis TimePerformed AtPathologist SignaturePOC Abfudai349 (H)65 - 105 mg/dL09/10/2025 1:32 PM EDTMERCY LABORATORIESSpecimen (Source) Anatomical Location / LateralityCollection Method / VolumeCollection Time Received Time09/10/2025 1:32 PM EDT1 1:41 PM EDT Narrative Authorizing ProviderResult TypeResult StatusCharuchi Mosquera MD POINT OF CARE TEST ORDERABLESFinal ResultPerforming OrganizationAddress City/State/ZIP CodePhone Number [address] [phone] * PREVIOUS SPECIMEN (09/10/2025 12:48 PM EDT)Specimen (Source)Anatomical Location / LateralityCollection Method / VolumeCollection TimeReceived Time 09/10/2025 12:48 PM EDT1 12:48 PM EDT Narrative Authorizing ProviderResult TypeResult StatusRadha Mosquera MD CHEMISTRY ORDERABLESFinal ResultPerforming OrganizationAddressMet[facility]/State/[place] [address], [facility] [place] [phone] * (ABNORMAL) Comprehensive Metabolic Panel w/ Reflex to MG (09/10/2025 12:48 PM EDT)ComponentValueRef RangeTest MethodAnalysis TimePerformed AtPathologist NtuktzzjwWghnux364106 - 145 mmol/L1 12:48 PM EDTMERCY LABORATORIES Potassium5.7(H)3.7 - 5.3 mmol/L1 12:48 PM EDTMERCY LABORATORIES Comment: Specimen hemolysis has exceeded the interference as defined by Christianne. Value may be falsely increased. Suggest recollection if clinically indicated. Zqhkvhhv380(H)98 - 107 mmol/L1 12:48 PM EDTMERCY YZAXCQTTWEZQVD73815 - 31 mmol/L1 12:48 PM EDTMERCY LABORATORIESAnion Gap8(L)9 - 16 mmol/L 09/10/2025 12:48 PM EDTMERCY VSPYTGMFLWUWRzvcwrz959(H)74 - 99 mg/dL09/10/2025 12:48 PM EDTMERCY TVABWHMQIUWTPTC77(H)6 - 20 mg/dL09/10/2025 12:48 PM EDTMERCY LABORATORIESCreatinine1.6(H)0.6 - 0.9 mg/dL09/10/2025 12:48 PM EDTMERCY LABORATORIESEst, Glom Filt Rate37(L)>60 mL/min/1.63q24109/10/2025 12:48 PM EDT [facility] LABORATORIESComment: ? These results are not intended for use in patients <18 years of age. ? eGFR results are calculated without a race factor using the 2020 CKD-EPI equation. Careful clinical correlation is recommended, particularly when comparing to results calculated using previous equations. The CKD-EPI equation is less accurate in patients with extremes of muscle mass, extra-renal metabolism of creatine, excessive creatine ingestion, or following therapy that affects renal tubular secretion. Calcium7.9(L)8.6 - 10.4 mg/dL09/10/2025 12:48 PM EDTMERCY LABORATORIESTotal Protein6.5(L)6.6 - 8.7 g/dL09/10/2025 12:48 PM EDTMERCY LABORATORIESAlbumin3.4 (L)3.5 - 5.2 g/dL09/10/2025 12:48 PM EDTMERCY LABORATORIESAlbumin/Globulin Ratio 1.11.0 - 2.510 12:48 PM EDTMERCY LABORATORIESTotal Bilirubin2.1(H)0.0 - 1.2 mg/dL09/10/2025 12:48 PM EDTMERCY LABORATORIESAlkaline Bhmsczzfech726(H)35 - 104 U/L1 12:48 PM EDTMERCY VAYQTIBDRMWVBJM0275 - 35 U/L1 12:48 PM EDTMERCY AFWSLAAUOWHJUCV45(H)10 - 35 U/L1 12:48 PM EDTMERCY LABORATORIESComment: Specimen hemolysis has exceeded the interference as defined by Christianne. Value may be falsely increased. Suggest recollection if clinically indicated. Specimen (Source)Anatomical Location / LateralityCollection Method / Volume Collection TimeReceived Time09/10/2025 12:48 PM EDT1 12:48 PM EDT Narrative Authorizing ProviderResult TypeResult StatusChandramohnash Mosquera MD CHEMISTRY ORDERABLESFinal ResultPerforming OrganizationAddressCity/State/ZIP CodePhone Number [address] [phone] * (ABNORMAL) Lactate Dehydrogenase (09/10/2025 12:48 PM EDT)ComponentValueRef RangeTest MethodAnalysis TimePerformed AtPathologist VobcjuvxrTZ889(H)135 - 214 U/L1 12:48 PM EDTMERCY LABORATORIESComment: Specimen hemolysis has exceeded the interference as defined by Christianne. Value may be falsely increased. Suggest recollection if clinically indicated. Specimen (Source)Anatomical Location / LateralityCollection Method / Volume Collection TimeReceived Time09/10/2025 12:48 PM EDT1 12:48 PM EDT Narrative Authorizing ProviderResult TypeResult StatusCharuchi Mosquera MD CHEMISTRY ORDERABLESFinal ResultPerforming OrganizationAddACMH Hospital/[facility]/ZIP CodePhone Number [address] [phone] * Haptoglobin (09/10/2025 12:48 PM EDT)ComponentValueRef RangeTest Method Analysis TimePerformed AtPathologist SttvxjcopOsjugqohbrx87575 - 200 mg/dL 09/10/2025 12:48 PM EDTMERCY LABORATORIESComment: Specimen hemolysis has exceeded the interference as defined by Christianne. Value may be falsely decreased. Suggest recollection if clinically indicated. Specimen (Source)Anatomical Location / LateralityCollection Method / Volume Collection TimeReceived Time09/10/2025 12:48 PM EDT1 12:48 PM EDT Narrative Authorizing ProviderResult TypeResult StatusCharuchi Mosquera MD CHEMISTRY ORDERABLESFinal ResultPerforming [facility]Add[facility]/ZIP CodePhone Number [address] [phone] * ULTRASOUND GUIDED VASCULAR ACCESS (09/10/2025 11:00 AM EDT)Anatomical Region LateralityModalityX-Ray AngiographySpecimen (Source)Anatomical Location / LateralityCollection Method / VolumeCollection TimeReceived Time Narrative 09/13/2025 6:44 PM EDT - S/p Re Do Bilateral pulmonary vein isolation by PFA with Farapulse system - S/p Separate and distinct posterior Wall ablation due to additional atrial fibrillation foci - S/p Re Do CTI ablation for Typical Flutter by PFA Procedure Details Patient: Ilsa Faria Date of : 1965 Date of Procedure: 09/10/2025 [place] [facility] Re Do Pulmonary Vein isolation with Pulse Field Ablation Procedure Report OPERATIVE DETAILS: Sedation: General Anesthesia was administered by qualified nursing personnel under continuous hemodynamic monitoring. Pre -procedure rhythm: Sinus rhythm Procedures Performed: Re Do Bilateral Pulmonary vein isolation with Farapulse Pulse Field ablation Separate and distinct posterior Wall ablation due to additional atrial fibrillation foci Re Do CTI Ablation with PFA Intracardiac echo Fluoroscopy Transseptal puncture 3D electro-anatomic mapping Central venous access Surface ultrasound for for venous access Vascular closure x 3 Vascular access: 9F Brite Tip sheath, 8F short sheath and a 17Fr Faradrive Flexcath Steerable Sheath inserted into the Right femoral vein under ultrasound guidance. After informed consent was obtained from the patient, the patient was brought to the EP laboratory in a fasting state. Anesthesia was provided by our anesthesia colleagues. The patient was prepped and draped in the usual sterile fashion. Time out was performed to identify the correct patient with name, , MRN, allergies, pertinent labs, diagnosis and procedure planned. Vascular accesses were obtained with the Seldinger technique under ultrasound guidance. On ultrasound the right femoral vein as well as bifurcation of right common femoral artery was well visualized.Vascular access was obtained with anterior puncture of right femoral vein and left femoral vein with direct visualization of needle under ultrasound. 8 Mosotho sheath, long 8Fr VersaCross sheath over the 035 wire and a 9.5 Fr Brite Tip long sheath was placed in right femoral vein. Then a 7 Fr DecaNav coronary sinus catheter was placed in coronary sinus for pacing and mapping. Imaging modalities were used, including fluoroscopy, 3-D electroanatomic mapping, and intracardiac echocardiogram. Intracardiac echocardiogram catheter was advanced through 9.5 FrBrite Tip long sheath into right atrium. Tricuspid valve was visualized. Catheter was advanced to right ventricle. Both ventricles were visualized. No significant pericardial effusion noted. With further clockwise rotation, catheter was placed in right ventricular outflow tract. Left atrial appendage was visualized. Noevidence of left atrial append[place] [address] [place] heparin was administered. Activated clotting times were checked every 15-30 min, and additional heparin was administered to maintain an ACT of 350-400 sec. Re Do AF ablation procedure details: One transeptal punctures under fluoroscopic, hemodynamic, and intracardiac echocardiogram guidance with a VersaCross RF Wire and VersaCross sheath.Then the 17Fr (OD) Faradrive sheath was exchanged for the Versacross sheath after LA mapping. A 3D geometry was created with Octaray catheter manipulation in the LA and Pvs. A baseline 3D electroanatomic voltage map of the left atrium was acquired in sinus rhythm which showed: Bilateral pulmonary vein reconnection, scattered severe patchy low voltage areas over the posteriorwall. Decision was made to proceed with a redo bilateral pulmonary veins along with a posterior wall ablation. After thorough flushing the 12 F 31 mm Farapulse single-shot multielectrode PFA catheter with 5 splines (with 4 electrodes per spline and 1 electrode available for intracardiac electrogram recording or 3-D electroanatomic visualization) was advanced into the LA. Energy delivered at 2000V with each pulses were delivered through all of the electrodes in a proprietary sequence using the PFA generator system (ENEFpro PFA System) to deliver biphasic, bipolar waveforms. The basket and flower configuration array positioning at the pulmonary vein ostium and antral position over the .032 J- tip guidewire,was assessed by fluoroscopy and intracardiac echocardiography imaging. We first aimed to place catheters ostially, before expanding lesions more antrally. The catheter shape is changedthrough the manipulation of a slider mechanism on the handle of the catheter. Five pulse deliverieswere applied per placement of the catheter. All deliveries were automatically gated to the ventricular refractory period. The catheter was continually rotated and placed around each pulmonary vein antrum and ostial level until full electrical isolation was achieved at the antral level. Application details: Total PF applications. LSPV -20 LIPV -12 RSPV -14 RIPV -12 Separate and distinct posterior Wall ablation due to additional atrial fibrillation foci -20 Bilateral pulm vein and posterior wall isolation was confirmed by absence of signals, voltage mapping with Octaray catheter and with the demonstrating exit block by pacing in all 4 pulmonary veins. Prior CTI line Interrogation: Then the sheath of the catheter was pulled back into RA. An electro-anatomic map was created using CARTO mapping TV annulus, IVC, isthmus. The prior CTI ablation line was interrogated with voltage mapping and with the pace mapping that showed CTI line breakthrough along the mid CTI. So decision wasmade to redo the entire CTI line with PFA. After pre-treatment with Phenylephrine and Nitroglycerine iv to protect RCA spasm, the ablation line was done at 5:30-6:00 position of the TV annulus with catheter in a Flower configuration. Total of 15 applications were delivered. The line was interrogated by pacing and performing activation mapping. There was no breakthrough and with activation mapping, bidirectional block was achieved. The transisthmus conduction time was noted to be 148 ms. Following completion of the procedure intracardiac echo confirmed no evidence of effusion. After ablation was complete, catheters were placed in the HRA and right ventricle for pacing and recording. Comprehensive EP study was performed. Post-procedure EP Study measurements: (please refer to the Procedure Grid). Atrial pacing: AV block cycle length: 460 ms. AV node ERP: 600/340 ms. There was no evidence of dual AV ted physiology. The patient tolerated the procedure well and there were no complications. Perclose stitch was deployed to the Faradrive Flex cath site in right groin and Mynx closure systemwith bioabsorbable collagen was delivered to the other sheath sites and all sheaths were removed. AFigure of 8 suture was applied to the right groin for additional hemostasis. The post procedure rhythm was Sinus bradycardia. This ablation took 4 to 5 times longer than a typical PSVT ablation because of its complexity, including mapping, extensive ablation, remapping, reablation, extended observation and provocative testing. Estimated Blood Loss: 50 cc Post Procedure recommendations: Monitor for anesthesia recovery Hemolysis labs sent Bed rest for 3 hours, if there is no bleeding, then start ambulating after releasing the stopcock Decrease metoprolol dose to 25 mg daily-take only half tablet per day Continue Eliquis 5 mg twice daily Continue your other medications without any change Continue dofetilide to 50 mcg 2 times daily for next 3 months. We will discuss in office during follow-up regarding continuation of therapy Follow-up with the nurse practitioner in 1 month after discharge Follow-up with me in office in 3 months INTRAOPERATIVE COMPLICATIONS: None; patient tolerated the procedure well. DISPOSITION: Post op recovery unit CONDITION: stable Radha Mosquera MD Cardiac Electrophysiology [place] [employer] [facility] Authorizing ProviderResult TypeResult StatusChandlee ann Mosquera MDCV INVASIVE VASCULAR ORDERABLESFinal Result * ABLATION A-FIB W COMPLETE EP STUDY (09/10/2025 11:00 AM EDT)ComponentValueRef RangeTest MethodAnalysis TimePerformed AtPathologist SignatureBody Surface Area2.4d5WTHH CV CPACS HEMOAnatomical RegionLateralityModalityX-Ray AngiographySpecimen (Source)Anatomical Location / LateralityCollection Method / VolumeCollection TimeReceived Time Narrative 09/13/2025 6:44 PM EDT - S/p Re Do Bilateral pulmonary vein isolation by PFA with Farapulse system - S/p Separate and distinct posterior Wall ablation due to additional atrial fibrillation foci - S/p Re Do CTI ablation for Typical Flutter by PFA Procedure Details Patient: Ilsa Faria Date of : 1965 Date of Procedure: 09/10/2025 [place] [employer] Re Do Pulmonary Vein isolation with Pulse Field Ablation Procedure Report OPERATIVE DETAILS: Sedation: General Anesthesia was administered by qualified nursing personnel under continuous hemodynamic monitoring. Pre -procedure rhythm: Sinus rhythm Procedures Performed: Re Do Bilateral Pulmonary vein isolation with Farapulse Pulse Field ablation Separate and distinct posterior Wall ablation due to additional atrial fibrillation foci Re Do CTI Ablation with PFA Intracardiac echo Fluoroscopy Transseptal puncture 3D electro-anatomic mapping Central venous access Surface ultrasound for for venous access Vascular closure x 3 Vascular access: 9F Brite Tip sheath, 8F short sheath and a 17Fr Faradrive Flexcath Steerable Sheath inserted into the Right femoral vein under ultrasound guidance. After informed consent was obtained from the patient, the patient was brought to the EP laboratory in a fasting state. Anesthesia was provided by our anesthesia colleagues. The patient was prepped and draped in the usual sterile fashion. Time out was performed to identify the correct patient with name, , MRN, allergies, pertinent labs, diagnosis and procedure planned. Vascular accesses were obtained with the Seldinger technique under ultrasound guidance. On ultrasound the right femoral vein as well as bifurcation of right common femoral artery was well visualized.Vascular access was obtained with anterior puncture of right femoral vein and left femoral vein with direct visualization of needle under ultrasound. 8 Mosotho sheath, long 8Fr VersaCross sheath over the 035 wire and a 9.5 Fr Brite Tip long sheath was placed in right femoral vein. Then a 7 Fr DecaNav coronary sinus catheter was placed in coronary sinus for pacing and mapping. Imaging modalities were used, including fluoroscopy, 3-D electroanatomic mapping, and intracardiac echocardiogram. Intracardiac echocardiogram catheter was advanced through 9.5 FrBrite Tip long sheath into right atrium. Tricuspid valve was visualized. Catheter was advanced to right ventricle. Both ventricles were visualized. No significant pericardial effusion noted. With further clockwise rotation, catheter was placed in right ventricular outflow tract. Left atrial appendage was visualized. Noevidence of left atrial append[place] thrombus[place] [address] [place] was administered. Activated clotting times were checked every 15-30 min, and additional heparin was administered to maintain an ACT of 350-400 sec. Re Do AF ablation procedure details: One transeptal punctures under fluoroscopic, hemodynamic, and intracardiac echocardiogram guidance with a VersaCross RF Wire and VersaCross sheath.Then the 17Fr (OD) Faradrive sheath was exchanged for the Versacross sheath after LA mapping. A 3D geometry was created with Octaray catheter manipulation in the LA and Pvs. A baseline 3D electroanatomic voltage map of the left atrium was acquired in sinus rhythm which showed: Bilateral pulmonary vein reconnection, scattered severe patchy low voltage areas over the posteriorwall. Decision was made to proceed with a redo bilateral pulmonary veins along with a posterior wall ablation. After thorough flushing the 12 F 31 mm Farapulse single-shot multielectrode PFA catheter with 5 splines (with 4 electrodes per spline and 1 electrode available for intracardiac electrogram recording or 3-D electroanatomic visualization) was advanced into the LA. Energy delivered at 2000V with each pulses were delivered through all of the electrodes in a proprietary sequence using the PFA generator system (ENEFpro PFA System) to deliver biphasic, bipolar waveforms. The basket and flower configuration array positioning at the pulmonary vein ostium and antral position over the .032 J- tip guidewire,was assessed by fluoroscopy and intracardiac echocardiography imaging. We first aimed to place catheters ostially, before expanding lesions more antrally. The catheter shape is changedthrough the manipulation of a slider mechanism on the handle of the catheter. Five pulse deliverieswere applied per placement of the catheter. All deliveries were automatically gated to the ventricular refractory period. The catheter was continually rotated and placed around each pulmonary vein antrum and ostial level until full electrical isolation was achieved at the antral level. Application details: Total PF applications. LSPV -20 LIPV -12 RSPV -14 RIPV -12 Separate and distinct posterior Wall ablation due to additional atrial fibrillation foci -20 Bilateral pulm vein and posterior wall isolation was confirmed by absence of signals, voltage mapping with Octaray catheter and with the demonstrating exit block by pacing in all 4 pulmonary veins. Prior CTI line Interrogation: Then the sheath of the catheter was pulled back into RA. An electro-anatomic map was created using CARTO mapping TV annulus, IVC, isthmus. The prior CTI ablation line was interrogated with voltage mapping and with the pace mapping that showed CTI line breakthrough along the mid CTI. So decision wasmade to redo the entire CTI line with PFA. After pre-treatment with Phenylephrine and Nitroglycerine iv to protect RCA spasm, the ablation line was done at 5:30-6:00 position of the TV annulus with catheter in a Flower configuration. Total of 15 applications were delivered. The line was interrogated by pacing and performing activation mapping. There was no breakthrough and with activation mapping, bidirectional block was achieved. The transisthmus conduction time was noted to be 148 ms. Following completion of the procedure intracardiac echo confirmed no evidence of effusion. After ablation was complete, catheters were placed in the HRA and right ventricle for pacing and recording. Comprehensive EP study was performed. Post-procedure EP Study measurements: (please refer to the Procedure Grid). Atrial pacing: AV block cycle length: 460 ms. AV node ERP: 600/340 ms. There was no evidence of dual AV ted physiology. The patient tolerated the procedure well and there were no complications. Perclose stitch was deployed to the Faradrive Flex cath site in right groin and Mynx closure systemwith bioabsorbable collagen was delivered to the other sheath sites and all sheaths were removed. AFigure of 8 suture was applied to the right groin for additional hemostasis. The post procedure rhythm was Sinus bradycardia. This ablation took 4 to 5 times longer than a typical PSVT ablation because of its complexity, including mapping, extensive ablation, remapping, reablation, extended observation and provocative testing. Estimated Blood Loss: 50 cc Post Procedure recommendations: Monitor for anesthesia recovery Hemolysis labs sent Bed rest for 3 hours, if there is no bleeding, then start ambulating after releasing the stopcock Decrease metoprolol dose to 25 mg daily-take only half tablet per day Continue Eliquis 5 mg twice daily Continue your other medications without any change Continue dofetilide to 50 mcg 2 times daily for next 3 months. We will discuss in office during follow-up regarding continuation of therapy Follow-up with the nurse practitioner in 1 month after discharge Follow-up with me in office in 3 months INTRAOPERATIVE COMPLICATIONS: None; patient tolerated the procedure well. DISPOSITION: Post op recovery unit CONDITION: stable Radha Mosquera MD Cardiac Electrophysiology [place] [employer] [facility] Authorizing ProviderResult TypeResult StatusChandlee ann Mosquera [facility] ELECTROPHYSIOLOGY ORDERABLESFinal Result * (ABNORMAL) CBC with Auto Differential (09/10/2025 11:00 AM EDT)ComponentValue Ref RangeTest MethodAnalysis TimePerformed AtPathologist EqfcgqbucAFM12.2(H) 3.5 - 11.3 k/uL09/10/2025 11:00 AM EDTMERCY LABORATORIESRBC4.383.95 - 5.11 m/uL09/10/2025 11:00 AM EDTMERCY JLUYAQIWFGZUPnrvisvsyz79.811.9 - 15.1 g/dL 09/10/2025 11:00 AM EDTMERCY LREOASSJFVAKSwtpggwwav81.236.3 - 47.1 %09/10/2025 11:00 AM EDTMERCY IMOSODWWBBIPLAC09.882.6 - 102.9 fL09/10/2025 11:00 AM EDT [facility] OMLNCUGHQLJCSWP13.225.2 - 33.5 pg09/10/2025 11:00 AM EDTMERCY UYXPFTVMFDSYZBRO29.828.4 - 34.8 g/dL09/10/2025 11:00 AM [facility] RDW15.9(H)11.8 - 14.4 %09/10/2025 11:00 AM ED[facility] LABORATORIESPlateletsSee Reflexed IPF Loarhw663 - 453 k/uL09/10/2025 11:00 AM [facility] Platelet, Kjiwajfjnysd720320 - 453 k/uL09/10/2025 11:00 AM ED[facility] LABORATORIESPlatelet, Immature Fraction8.21.1 - 10.3 %09/10/2025 11:00 AM EDT [facility] LABORATORIESNRBC Automated0.00.0 per 100 WBC09/10/2025 11:00 AM ED[facility] LABORATORIESRBC MorphologyANISOCYTOSIS TLBTQRY5309/10/2025 11:00 AM EDBIOSAFEY LABORATORIESNeutrophils %72(H)36 - 65 %09/10/2025 11:00 AM ED[facility] LABORATORIESLymphocytes %20(L)24 - 43 %09/10/2025 11:00 AM EDTMPoolamiY LABORATORIESMonocytes %53 - 12 %09/10/2025 11:00 AM EDBIOSAFEY LABORATORIES Eosinophils %11 - 4 %09/10/2025 11:00 AM ED[facility] LABORATORIESBasophils %10 - 2 %09/10/2025 11:00 AM EDWave [facility] LABORATORIESImmature Granulocytes %1(H)0 % 09/10/2025 11:00 AM EDBIOSAFEY LABORATORIESNeutrophils Avriuhxi75.90(H)1.50 - 8.10 k/uL09/10/2025 11:00 AM EDTMERCY LABORATORIESLymphocytes Absolute3.021.10 - 3.70 k/uL09/10/2025 11:00 AM EDTMWyzeTalk LABORATORIESMonocytes Absolute0.780.10 - 1.20 k/uL09/10/2025 11:00 AM EDTMWyzeTalk LABORATORIESEosinophils Absolute0.18 0.00 - 0.44 k/uL09/10/2025 11:00 AM EDTMERCM2Z Networks LABORATORIESBasophils Absolute 0.110.00 - 0.20 k/uL09/10/2025 11:00 AM EDTMERCY LABORATORIESImmature Granulocytes Absolute0.160.00 - 0.30 k/uL09/10/2025 11:00 AM EDTMERCY LABORATORIESSpecimen (Source)Anatomical Location / LateralityCollection Method / VolumeCollection TimeReceived TimeBloodBLOOD SPECIMEN / Cqidleb6009/10/2025 11:00 AM EDT1 11:30 AM EDT Narrative Authorizing ProviderResult TypeResult StatusChandlee ann Mosquera MD HEMATOLOGY ORDERABLESFinal ResultPerforming OrganizationAddressCity/State/ZIP CodePhone Number [facility] [address] [place] [address] * (ABNORMAL) Reticulocytes (09/10/2025 11:00 AM EDT)ComponentValueRef RangeTest MethodAnalysis TimePerformed AtPathologist SignatureRetic Ct Pct2.6(H)0.5 - 1.9 %09/10/2025 11:00 AM EDTMERCY LABORATORIESAbsolute Retic #0.113(H)0.030 - 0.080 M/uL09/10/2025 11:00 AM EDTMERCY LABORATORIESImmature Retic Fract17.12.7 - 18.3 %09/10/2025 11:00 AM EDTMERCY LABORATORIESRetic Orumjibalg30.628.2 - 35.7 pg09/10/2025 11:00 AM EDTMERCY LABORATORIESSpecimen (Source)Anatomical Location / LateralityCollection Method / VolumeCollection TimeReceived Time BloodBLOOD SPECIMEN / Qzoahly6609/10/2025 11:00 AM EDT1 11:30 AM EDT Narrative Authorizing ProviderResult TypeResult StatusChandlee ann Mosquera MD HEMATOLOGY ORDERABLESFinal ResultPerforming OrganizationAddressCity/State/ZIP CodePhone Number [facility] [address] [place] [address], [facility] [place] [phone] * (ABNORMAL) HEMOGLOBIN FREE, PLASMA (09/10/2025 11:00 AM EDT)ComponentValueRef RangeTest MethodAnalysis TimePerformed AtPathologist SignatureHemoglobin, Free, Ocauop76.9(H)0.0 - 9.7 mg/dL09/10/2025 11:00 AM EDTARUP LABORATORY Comment: (NOTE) Performed By: [facility] [address] [place] [address] Cell Plasterer: Benedicto Howe MD, PhD CLIA Number: [id number] Specimen (Source)Anatomical Location / LateralityCollection Method / Volume Collection TimeReceived TimeBloodBLOOD SPECIMEN / Rfntaoi5909/10/2025 11:00 AM EDT 09/10/2025 11:30 AM EDT Narrative Authorizing ProviderResult TypeResult StatusRadha Mosquera MD CHEMISTRY ORDERABLESFinal ResultPerforming OrganizationAddressCity/State/[place] [address], [facility] [place] [phone] [phone] * (ABNORMAL) Activated clotting time (09/10/2025 10:26 AM EDT) Only the most recent of5 resultswithin the time period is included. ComponentValueRef RangeTest MethodAnalysis TimePerformed AtPathologist Signature Activated Clotting Havs864(H)79 - 149 sec09/10/2025 10:26 AM EDTMERCY LABORATORIESSpecimen (Source)Anatomical Location / LateralityCollection Method / VolumeCollection TimeReceived Time09/10/2025 10:26 AM EDT1 10:29 AM EDT Narrative Authorizing ProviderResult TypeResult StatusRadha Mosquera MD HEMATOLOGY ORDERABLESFinal ResultPerforming OrganizationAddressCity/State/[place] [address], [facility] [place] [phone] * Platelet Count (09/10/2025 7:27 AM EDT)ComponentValueRef RangeTest Method Analysis TimePerformed AtPathologist BpaoksweuUzhfoqdqy376564 - 453 k/uL 09/10/2025 7:27 AM EDTMERCY LABORATORIESSpecimen (Source)Anatomical Location / LateralityCollection Method / VolumeCollection TimeReceived TimeBloodBLOOD SPECIMEN / Oqiabtm4709/10/2025 7:27 AM EDT1 7:27 AM EDT Narrative Authorizing ProviderResult TypeResult StatusCarriendlee ann Mosquera MD HEMATOLOGY ORDERABLESFinal ResultPerforming OrganizationAddressCi/State/ZIP CodePhone Number [facility] [place] [address], [facility] [place] [phone] * (ABNORMAL) Creatinine W/GFR Point of Care (09/10/2025 7:20 AM EDT) Only the most recent of2 resultswithin the time period is included. ComponentValueRef RangeTest MethodAnalysis TimePerformed AtPathologist Signature POC Creatinine2.1(H)0.51 - 1.19 mg/dL09/10/2025 7:20 AM EDTMERCY LABORATORIES eGFR, POC27(L)>60 mL/min/1.81c92609/10/2025 7:20 AM EDTMERCY LABORATORIESComment: ? These results are not intended for use in patients <18 years of age. ? eGFR results are calculated without a race factor using the 2020 CKD-EPI equation. Careful clinical correlation is recommended, particularly when comparing to results calculated using previous equations. The CKD-EPI equation is less accurate in patients with extremes of muscle mass, extra-renal metabolism of creatine, excessive creatine ingestion, or following therapy that affects renal tubular secretion. Specimen (Source)Anatomical Location / LateralityCollection Method / Volume Collection TimeReceived Time09/10/2025 7:20 AM EDT1 7:28 AM EDT Narrative Authorizing ProviderResult TypeResult StatusRadha Mosquera MD POINT OF CARE TEST ORDERABLESFinal ResultPerforming OrganizationAddress City/State/ZIP CodePhone Number [facility] [address] [place] [address], [facility] [place] [phone] * CHLORIDE (POC) (09/10/2025 7:20 AM EDT)ComponentValueRef RangeTest Method Analysis TimePerformed AtPathologist SignaturePOC Bzjahmnv97183 - 107 mmol/L 09/10/2025 7:20 AM EDTMERCY LABORATORIESSpecimen (Source)Anatomical Location / LateralityCollection Method / VolumeCollection TimeReceived Time09/10/2025 7:20 AM EDT1 7:28 AM EDT Narrative Authorizing ProviderResult TypeResult StatusRadha Mosquera MD CHEMISTRY ORDERABLESFinal ResultPerforming OrganizationAddCommunity Health Systemsty/State/ZIP CodePhone Number [address] [phone] * SODIUM (POC) (09/10/2025 7:20 AM EDT)ComponentValueRef RangeTest Method Analysis TimePerformed AtPathologist SignaturePOC Jmjreb558596 - 146 mmol/L 09/10/2025 7:20 AM EDTMERCY LABORATORIESSpecimen (Source)Anatomical Location / LateralityCollection Method / VolumeCollection TimeReceived Time09/10/2025 7:20 AM EDT1 7:28 AM EDT Narrative Authorizing ProviderResult TypeResult StatusRadha Mosquera MD CHEMISTRY ORDERABLESFinal ResultPerforming OrganizationAddCommunity Health Systemsty/State/ZIP CodePhone Number [address] [phone] * (ABNORMAL) POTASSIUM (POC) (09/10/2025 7:20 AM EDT)ComponentValueRef RangeTest MethodAnalysis TimePerformed AtPathologist SignaturePOC Potassium4.9(H)3.5 - 4.5 mmol/L1 7:20 AM EDTMERCY LABORATORIESSpecimen (Source)Anatomical Location / LateralityCollection Method / VolumeCollection TimeReceived Time 09/10/2025 7:20 AM EDT1 7:28 AM EDT Narrative Authorizing ProviderResult TypeResult StatusRadha Mosquera MD CHEMISTRY ORDERABLESFinal ResultPerforming OrganizationAddCommunity Health Systemsty/State/[place] [address], [facility] [place] [phone] * (ABNORMAL) POCT urea (BUN) (09/10/2025 7:20 AM EDT)ComponentValueRef RangeTest MethodAnalysis TimePerformed AtPathologist SignaturePOC BUN33(H)8 - 26 mg/dL 09/10/2025 7:20 AM EDTMERCY LABORATORIESSpecimen (Source)Anatomical Location / LateralityCollection Method / VolumeCollection TimeReceived Time09/10/2025 7:20 AM EDT1 7:28 AM EDT Narrative Authorizing ProviderResult TypeResult StatusRadha Mosquera MD POINT OF CARE TEST ORDERABLESFinal ResultPerforming OrganizationAddress City/State/[place] [address], [facility] [place] [phone] * Hemoglobin and hematocrit, blood (09/10/2025 7:20 AM EDT)ComponentValueRef RangeTest MethodAnalysis TimePerformed AtPathologist SignaturePOC Hemoglobin (calc)14.512.0 - 16.0 g/dL09/10/2025 7:20 AM EDTMERCY LABORATORIESPOC Plpflvxsgn5976 - 46 %09/10/2025 7:20 AM EDTMERCY LABORATORIESSpecimen (Source) Anatomical Location / LateralityCollection Method / VolumeCollection Time Received Time09/10/2025 7:20 AM EDT1 7:28 AM EDT Narrative Authorizing ProviderResult TypeResult StatusRadha Mosquera MD HEMATOLOGY ORDERABLESFinal ResultPerforming OrganizationAddressMet[facility]/State/[place] [address], [facility] [place] [phone] * (ABNORMAL) POCT Glucose (09/10/2025 7:20 AM EDT)ComponentValueRef RangeTest MethodAnalysis TimePerformed AtPathologist SignaturePOC Mezjysu952(H)74 - 100 mg/dL09/10/2025 7:20 AM EDTMERCY LABORATORIESSpecimen (Source)Anatomical Location / LateralityCollection Method / VolumeCollection TimeReceived Time 09/10/2025 7:20 AM EDT1 7:28 AM EDT Narrative Authorizing ProviderResult TypeResult Idris Mosquera MD POINT OF CARE TEST ORDERABLESFinal ResultPerforming OrganizationAddress City/State/ZIP CodePhone Number [place], [place] [address] [phone] * EKG 12 Lead (09/10/2025 6:35 AM EDT)ComponentValueRef RangeTest MethodAnalysis TimePerformed AtPathologist SignatureVentricular Fiio67FADLGWO STV MUSEAtrial Txmv31FXOCBXJ STV MUSEP-R Vrxfgrui839mmLUAV STV MUSEQRS Vyinfilc89nvTVTM STV MUSEQ-T Gabpphbr284qkTPBN STV MUSEQTc Calculation (Bazett)485msMHPN STV MUSEP Independence-23degreesMHPN STV MUSER Independence-68degreesMHPN STV MUSET Gbkf62kgcqvewRUQH STV MUSESpecimen (Source)Anatomical Location / LateralityCollection Method / VolumeCollection TimeReceived Time09/10/2025 6:35 AM EDT Narrative MHPN STV MUSE - 09/11/2025 9:21 PM EDT Sinus rhythm Left axis deviation Prolonged QT Abnormal ECG When compared with ECG of 06-Dec-2023 08:50, Procedure Note Kody Sorenson MD - 09/11/2025 Sinus rhythm Left axis deviation Prolonged QT Abnormal ECG When compared with ECG of 06-Dec-2023 08:50, Authorizing ProviderResult TypeResult StatusChandramohan Davidundsavannah MDECG ORDERABLESFinal ResultPerforming OrganizationAddressCity/State/ZIP CodePhone Number PN STV MUSE * CTA CORON EJECT FRAC WALL MOTION (08/18/2025 1:55 PM EDT)Anatomical Region LateralityModalityChest, VascularComputed TomographySpecimen (Source) Anatomical Location / LateralityCollection Method / VolumeCollection Time Received Time08/19/2025 2:07 PM EDT Impressions 08/19/2025 2:37 PM EDT 1. Pulmonary vein measurements as above. 2. Large amount of calcified plaque in the LAD. Suspect hemodynamically significant stenosis but difficult to quantify severity due to large amount of calcified plaque. 3. Extensive stenting of the left circumflex and right coronary artery. Decreased enhancement within the stents. 4. Total calcium score of 649 places patient in the 90th percentile for the patient's age. Narrative 08/19/2025 2:37 PM EDT EXAMINATION: CTA OF THE CORONARY ARTERIES WITH CALCIUM SCORE 08/18/2025 TECHNIQUE: Automated exposure control, iterative reconstruction, and/or weight based adjustment of the mA/kV was utilized to reduce the radiation dose to as low as reasonably achievable. 3D reconstructed images were performed on a separate workstation and provided for review. COMPARISON: None HISTORY: ORDERING SYSTEM PROVIDED HISTORY: Persistent atrial fibrillation (HCC) TECHNOLOGIST PROVIDED HISTORY: To evaluate Pulmonary veins anatomy pre Atrial fibrillation ablation Reason for Exam: evaluate pulmonary veins anatomy pre Atrial fibrillation ablation FINDINGS: CALCIUM SCORE: Left main: 22 Left anterior descendin Left circumflex: 7 Right coronary artery 95 Ramus intermedius: 114 Total Agatston calcium score: 649 CTA: Left Main: Arises from left cusp. ??Mild calcific plaque does significant stenosis. LAD: Noncalcified plaque in the proximal LAD close to the origin results in less than 50% stenosis. ??Large amount of calcified plaque mainly in the middle segment. ??Due to severity of the calcifications, the vessel lumen is obscured by blooming artifact. ??Suspect hemodynamically significant stenosis but difficult to quantify severity due to large amount of calcified plaque.. Left circumflex: ??Extensive stenting. ??Decreased enhancement within stent a min. RCA: ??Tandem stents in the middle segment. ??Satisfactory enhancement distal to the stent. ??Decrease enhancement with stent lumen. Cardiac findings: Cardiac size normal. ??No pericardial effusion. ??Normal enhancement of the atrial appendage. Right superior pulmonary vein: Ostium 16 x 14mm. ??Trunk length 21mm. Right inferior pulmonary vein: Ahmjda09 x 22mm. ??Trunk length 12 mm. Left superior pulmonary vein: Orkdfu96 x 19mm. ??Trunk length 22 mm. Left inferior pulmonary vein: Lwgwbv11 x 12mm. ??Trunk length 14 mm. LVEF 77% Non-cardiac findings: No acute process. ??No suspicious mass. CALCIUM SCORE INTERPRETATION: 0 ??No identifiable atherosclerotic plaque. Very low cardiovascular disease risk. ??Less than 5% chance of presence of coronary artery disease. ??A negative examination. 1-10 Minimal plaque burden. ??Significant coronary artery disease very unlikely. 11-100 Mild plaque burden. Likely mild or minimal coronary stenosis. 101-400 Moderate plaque burden. ??Moderate non-obstructive coronary artery disease highly likely. Over 400 Extensive plaque burden. ??High likelihood of at least one significant coronary artery stenosis (>50% diameter). CALCIUM SCORING OVERVIEW: Coronary calcium is a marker for plaque in a blood vessel or atherosclerosis (hardening of the arteries). ??The presence and amount of calcium detected in the coronary artery by the CT scan estimates the presence and amount of atherosclerotic plaque. ??These calcium deposits can appear years before the development of heart disease symptoms such as chest pain and shortness of breath. A calcium score is computed for each of the coronary arteries based upon the volume and density of the calcium deposits. ??This can be referred to as your calcified plaque burden. ??It does not correspond directly to the percentage of narrowing in the artery, but does correlate with the severity of the overall coronary atherosclerotic burden. This score is then used to determine the calcium percentile which compares your calcified plaque burden to that of other asymptomatic men and women of the same age. ??The calcium score, in combination with the percentile, enables your physician to determine your risk of developing symptomatic coronary artery disease, and to measure the progression of disease as well as the effectiveness of treatment. A score of zero indicates that there is no calcified plaque burden. This implies that there is no significant coronary artery narrowing and very low likelihood of a cardiac event over at least the next 3 years. It does not absolutely rule out the presence of soft, noncalcified plaque or totally eliminate the possibility of a cardiac event. A score greater than zero indicates at least some coronary artery disease. As the score increases, so does the likelihood of a significant coronary narrowing and the likelihood of a coronary event over the next 3 years. Similarly, the likelihood of a coronary event increases with increasing calcium percentiles. Procedure Note Star Roberts MD - 08/19/2025 EXAMINATION: CTA OF THE CORONARY ARTERIES WITH CALCIUM SCORE 08/18/2025 TECHNIQUE: Automated exposure control, iterative reconstruction, and/or weightbased adjustment of the mA/kV was utilized to reduce the radiation dose to aslow as reasonably achievable. 3D reconstructed images were performed on a separate workstation and provided for review. COMPARISON: None HISTORY: ORDERING SYSTEM PROVIDED HISTORY: Persistent atrial fibrillation (HCC) TECHNOLOGIST PROVIDED HISTORY: To evaluate Pulmonary veins anatomy pre Atrial fibrillation ablation Reason for Exam: evaluate pulmonary veins anatomy pre Atrialfibrillation ablation FINDINGS: CALCIUM SCORE: Left main: 22 Left anterior descendin Left circumflex: 7 Right coronary artery 95 Ramus intermedius: 114 Total Agatston calcium score: 649 CTA: Left Main: Arises from left cusp. Mild calcific plaque does significant stenosis. LAD: Noncalcified plaque in the proximal LAD close to the origin resultsin less than 50% stenosis. Large amount of calcified plaque mainly in the middle segment. Due to severity of the calcifications, the vessel lumenis obscured by blooming artifact. Suspect hemodynamically significantstenosis but difficult to quantify severity due to large amount of calcifiedplaque.. Left circumflex: Extensive stenting. Decreased enhancement within stenta min. RCA: Tandem stents in the middle segment. Satisfactory enhancementdistal to the stent. Decrease enhancement with stent lumen. Cardiac findings: Cardiac size normal. No pericardial effusion. Normal enhancement ofthe atrial appendage. Right superior pulmonary vein: Ostium 16 x 14mm. Trunk length 21mm. Right inferior pulmonary vein: Dvpgvx75 x 22mm. Trunk length 12 mm. Left superior pulmonary vein: Fvfjxr85 x 19mm. Trunk length 22 mm. Left inferior pulmonary vein: Mdvqmw10 x 12mm. Trunk length 14 mm. LVEF 77% Non-cardiac findings: No acute process. No suspicious mass. CALCIUM SCORE INTERPRETATION: 0 No identifiable atherosclerotic plaque. Very low cardiovasculardisease risk. Less than 5% chance of presence of coronary artery disease. A negative examination. 1-10 Minimal plaque burden. Significant coronary artery disease very unlikely. 11-100 Mild plaque burden. Likely mild or minimal coronary stenosis. 101-400 Moderate plaque burden. Moderate non-obstructive coronaryartery disease highly likely. Over 400 Extensive plaque burden. High likelihood of at least one significant coronary artery stenosis (>50% diameter). CALCIUM SCORING OVERVIEW: Coronary calcium is a marker for plaque in a blood vessel oratherosclerosis (hardening of the arteries). The presence and amount of calcium detectedin the coronary artery by the CT scan estimates the presence and amount of atherosclerotic plaque. These calcium deposits can appear years beforethe development of heart disease symptoms such as chest pain and shortnessof breath. A calcium score is computed for each of the coronary arteries based uponthe volume and density of the calcium deposits. This can be referred to asyour calcified plaque burden. It does not correspond directly to thepercentage of narrowing in the artery, but does correlate with the severity of the overall coronary atherosclerotic burden. This score is then used to determine the calcium percentile whichcompares your calcified plaque burden to that of other asymptomatic men and womenof the same age. The calcium score, in combination with the percentile,enables your physician to determine your risk of developing symptomatic coronary artery disease, and to measure the progression of disease as well as the effectiveness of treatment. A score of zero indicates that there is no calcified plaque burden. This implies that there is no significant coronary artery narrowing and verylow likelihood of a cardiac event over at least the next 3 years. It doesnot absolutely rule out the presence of soft, noncalcified plaque or totally eliminate the possibility of a cardiac event. A score greater than zero indicates at least some coronary arterydisease. As the score increases, so does the likelihood of a significant coronary narrowing and the likelihood of a coronary event over the next 3 years. Similarly, the likelihood of a coronary event increases with increasing calcium percentiles. IMPRESSION: 1. Pulmonary vein measurements as above. 2. Large amount of calcified plaque in the LAD. Suspect hemodynamically significant stenosis but difficult to quantify severity due to largeamount of calcified plaque. 3. Extensive stenting of the left circumflex and right coronary artery. Decreased enhancement within the stents. 4. Total calcium score of 649 places patient in the 90th percentile forthe patient's age. Authorizing ProviderResult TypeResult StatusChandlee ann Mosquera MDIM CT ORDERABLESFinal Result * (ABNORMAL) Hemoglobin A1C (10/18/2023 7:32 AM EST)ComponentValueRef RangeTest MethodAnalysis TimePerformed AtPathologist SignatureHemoglobin A1C8.6(H)4.0 - 6.0 %10/18/2023 7:32 AM ESTMERCY LABORATORIESEstimated Avg Ckbyixk281fs/dL 10/18/2023 7:32 AM ESTMERCY LABORATORIESComment: The ADA and AACC recommend providing the estimated average glucose result to permit better patient understanding of their HBA1c result. Specimen (Source)Anatomical Location / LateralityCollection Method / Volume Collection TimeReceived Time10/18/2023 7:32 AM EST10/18/2023 7:35 AM EST Narrative Authorizing ProviderResult TypeResult StatusSabrina Joaquin CASE ADVOCATE - NPCHEMISTRY ORDERABLESFinal ResultPerforming OrganizationAddressCity/State/ZIP CodePhone Number [facility] [address] [phone] * (ABNORMAL) Lipid Panel (03/18/2022 9:06 AM EDT)ComponentValueRef RangeTest MethodAnalysis TimePerformed AtPathologist DsauguzkjTivrdbinixs037<200 mg/dL 03/18/2022 9:06 AM EDTMERCY LABORATORIESComment: Cholesterol Guidelines: <200 Desirable 200-240 ??Borderline >240 Undesirable HDL31(L)>40 mg/dL03/18/2022 9:06 AM EDTMERCY LABORATORIESComment: HDL Guidelines: <40 Undesirable 40-59 ?Borderline >59 Desirable LDL Fdcunginpjk759 - 130 mg/dL03/18/2022 9:06 AM EDTMERCY LABORATORIESComment: LDL Guidelines: <100 Desirable 100-129 ?? Near to/above Desirable 130-159 ?? Borderline >159 Undesirable Direct (measured) LDL and calculated LDL are not interchangeable tests. Chol/HDL Ratio4.5< 9:06 AM EDTMERCY LABORATORIESComment:Triglycerides 249(H)<150 mg/dL03/18/2022 9:06 AM EDTMERCY LABORATORIESComment: Triglyceride Guidelines: <150 Desirable 150-199 ??Borderline 200-499 ??High >499 Very high Based on AHA Guidelines for fasting triglyceride, August 2012. Specimen (Source)Anatomical Location / LateralityCollection Method / Volume Collection TimeReceived Time03/18/2022 9:06 AM EDT03/18/2022 9:07 AM EDT Narrative Authorizing ProviderResult TypeResult StatusAmeer Channing Home MDCHEMISTRY ORDERABLES Final ResultPerforming OrganizationAddressCity/State/ZIP CodePhone Number [facility] [address] [place] [address], [facility] [place] [phone] [facility] [address] [place] [address], [facility] [place] [phone] from Last 3 Months or Most Recently Relevant to Health Maintenance Insurance * Guarantor: Ilsa Faria TypeRelation to PatientDate of BirthPhone Billing AddressPersonal/WnbvqsHcam1965 [address] [address] * Guarantor: Ilsa Faria TypeRelation to PatientDate of BirthPhone Billing AddressPersonal/PiautgZcbq1965 [address] [address] Advance Directives * Full Code (Latest Code Status on File) Date ActivatedDate XkjabsopuvjCuymclgd92/16/2025 7:01 AM09/10/2025 4:24 PM * Full Code Date ActivatedDate InactivatedComments12/06/2023 7:47 AM12/06/2023 7:03 PM * Full Code Date ActivatedDate OexaybzlpdfYfqwttlj52/22/2023 7:01 PM10/24/2023 7:09 PM * Full Code Date ActivatedDate InactivatedComments05/15/2022 9:19 AM05/16/2022 2:39 AM Care Teams Team MemberRelationshipSpecialtyStart DateEnd Date Paul Santos MD [address] [place] [address] [facility] - General01/31/16
--- OUTSIDE RECORDS SUMMARY | 2025-10-26 09:33 | XMS_ITS | CCD ---
Author Organization [facility] Care Team Providers Care Dog Day Care Attendant Name Role Phone ESTELA WOMACK Unavailable Unavailable ESTELA WOMACK Unavailable Unavailable CARY BENTON Unavailable Unavailable CARY BENTON Unavailable Unavailable [place] Unavailable Unavailable ESTELA WOMACK Unavailable Unavailable Cary Benton MD Primary Care Provider Nathan BRAMBILA Attending Unavailable Cary Yusuf Referring UnavailCary Adame Primary Care Physician [phone] Nathan BRAMBILA Attending Unavailable Cary Yusuf Referring UnavailNathan Flor Attending Unavailable Nathan BRAMBILA Attending Unavailable POPEYE KAUFFMAN Referring Unavailable POPEYE KAUFFMAN Attending Unavailable CHETAN Gonzalez, DR TOWNSEND Admitting Unavailable CHETAN ., DR TOWNSEND Attending Unavailable CHETAN ., DR TOWNSEND Consulting Unavailable DR CARY VARGAS Primary Care Unavailable ANNISTON, DR MARIA LUISA Michaels Consulting Unavailable OSCARY .DR TOWNSEND Admitting Unavailable HOY ., DR TOWNSEND Attending Unavailable HOY ., DR TOWNSEND Consulting Unavailable CHETAN ., DR TOWNSEND Primary Care Unavailable Lazarus Parra Consulting Unavailable CHETAN .DR TOWNSEND Admitting Unavailable CHETAN .DR TOWNSEND Attending Unavailable CHETAN ., DR TOWNSEND Consulting Unavailable CHETAN ., DR TOWNSEND Primary Care Unavailable Lazarus Parra Consulting Unavailable CHETAN ., DR TOWNSEND Attending Unavailable CHETAN ., DR TOWNSEND Consulting Unavailable CHETAN ., DR TOWNSEND Primary Care Unavailable DR CARY VARGAS Admitting Unavailable Lazarus Parra Consulting Unavailable DVAID CAVANAUGH Consulting Unavailable MARINE GUERRERO Consulting Unavailable EMILIANA CURTIS Consulting Unavailable OSCARY ., DR TOWNSEND Admitting Unavailable HOY ., DR TOWNSEND Attending Unavailable HOY ., DR TOWNSEND Consulting Unavailable HOY ., DR TOWNSEND Primary Care Unavailable Lazarus Parra Consulting Unavailable HOY ., DR TOWNSEND Admitting Unavailable HOY ., DR TOWNSEND Attending Unavailable HOY ., DR TOWNSEND Consulting Unavailable OSCARY ., DR TOWNSEND Primary Care Unavailable Cary Benton MD Primary Care Provider [phone] LENCHO, LUNA Referring Unavailable LENCHO, LUNA Admitting Unavailable LUNA MUSA Attending Unavailable LUNA MUSA Attending Unavailable LUNA MUSA Referring Unavailable CARY BENTON Primary Care Unavailable Rojelio Rojas MD Attending Provider [phone] NO FAMILY, PHYSICIAN Primary Care Provider Unava ilable Rojelio Rojas Unavailable Rojelio Rojas Admitting Unavailable NO FAMILY, PHYSICIAN Primary Care Unavailable MEENAKSHISUNDARAM, CHANDRAMOHAN Admitting Unavailable MEENAKSHISUNDARAM, CHANDRAMOHAN Attending Unavailable CARY BENTON M Primary Care Unavailable MEENAKSHISUNDARAM, CHANDRAMOHAN Attending Unavailable MEENAKSHISUNDARAM, CHANDRAMOHAN Referring Unavailable CARY BENTON Primary Care Unavailable MEENAKSHISUNDARAM, CHANDRAMOHAN Attending Unavailable MEENAKSHISUNDARAM, CHANDRAMOHAN Referring Unavailable CARY BENTON M Primary Care Unavailable Allergies Allergy ClassificationReported Allergen(s)Allergy TypeDate of OnsetReaction(s) Facility (4 sources)Sulfonamides (Antibiotic); Translations: [SULFA (SULFONAMIDE ANTIBIOTICS)]Drug allergy (disorder)13-58-4994HVCZdd [facility] (10 sources)Sulfonamides (Antibiotic)Propensity to adverse reactions to drug 26-99-5501[facility] (2 sources)Sulfonamides (Antibiotic); Translations: [sulfa drugs]Drug allergy Unknown (qualifier value)[facility] Medications Current Medications MedicationDrug Class(es)DatesSig (Normalized)Sig (Original)acetaminophen 325 mg / HYDROcodone bitartrate 5 mg oral tablet (3 sources)Opioid AgonistStart: 68-69-0249afii 1 tablet by mouth every six hours as needed for painHYDROcodone-acetaminophen (NORCO) 5-325 MG per tablet Take 1 tablet by mouth every 6 hours as needed for Pain. 10/13/2024 [id number] 200 actuat albuterol 0.09 mg/actuat metered dose inhaler (10 sources)beta2-Adrenergic Agonisttake 2 puff(s) by inhalation every six hours as needed for wheezingalbuterol sulfate HFA (PROVENTIL;VENTOLIN;PROAIR) 108 (90 Base) MCG/ACT inhaler Inhale 2 puffs intothe lungs every 6 hours as needed for Wheezing Activealbuterol HFA 90 mcg/inh MDI (1 source)Start: 93-23-3912xchb 2 puff(s) by inhalation four times daily albuterol HFA 90 mcg/inh MDI 2 puff(s), Inhalation, QID Shortness of breath or wheezing, Refill(s) 0 Start Date: 08/25/22 Status: Orderedaluminum hydroxide 40 mg/ml / magnesium hydroxide 40 mg/ml / simethicone 4 mg/ml oral suspension (3 sources)Start: 90-13-3004fksm 30 mL by mouth every six hours as needed aluminum & magnesium hydroxide-simethicone (MAALOX) 200-200-20 MG/5ML SUSP suspension Take 30 mLs by mouth every 6 hours as needed for Indigestion 300 mL 0 10/24/2023 Activeapixaban 5 mg oral tablet (7 sources)Factor Xa InhibitorStart: 01-17-9175xmvj 1 tablet by mouth twice dailyapixaban (ELIQUIS) 5 MG TABS tablet Indications: Atrial flutter, unspecified type (HCC) Take 1 tablet by mouth 2 times daily 180 tablet 2 07/02/2025 ActiveStart: 40-44-2256sdfb 1 tablet by mouth twice dailyapixaban (ELIQUIS) 5 MG TABS tablet Indications: Atrial flutter, unspecified type (HCC) Take 1 tablet by mouth 2 times daily 180 tablet 2 03/30/2025 ActiveStart: 94-51-1001dcul 1 tablet by mouth twice dailyELIQUIS 5 MG TABS tablet Indications: Atrial flutter, unspecified type (HCC) TAKE 1 TABLET BY MOUTHTWICE A DAY 180 tablet 1 02/08/2024 ActiveStart: 69-92-4850pqxa 1 tablet by mouth twice dailyapixaban (ELIQUIS) 5 MG TABS tablet Indications: Atrial flutter, unspecified type (HCC) Take 1 tablet by mouth 2 times daily 180 tablet 1 08/14/2023 Activeaspirin 81 mg delayed release oral tablet (1 source)Platelet Aggregation Inhibitor, Nonsteroidal Anti-inflammatory Drug take 1 tablet by mouth once dailyaspirin 81 MG EC tablet Take 81 mg by mouth daily 0 Activeatorvastatin 80 mg oral tablet (11 sources)HMG-CoA Reductase InhibitorStart: 15-48-1348gjmz 1 tablet by mouth once dailyatorvastatin (LIPITOR) 80 MG tablet Take 1 tablet by mouth daily 09/20/2021 Kphewd31 actuat budesonide 0.16 mg/actuat / formoterol fumarate 0.0045 mg/actuat metered dose inhaler (10 sources)Corticosteroid, beta2-Adrenergic AgonistStart: 29-39-3958RARAHHDLU 160-4.5 MCG/ACT AERO Inhale 2 puffs into the lungs 10/24/2021 ActiveStart: 33-54-3223QAVDNEIDT 160-4.5 MCG/ACT AERO 10/24/2021 Activebumetanide 1 mg oral tablet (5 sources)Loop DiureticStart: 43-01-9744jujq 1 tablet by mouth once daily bumetanide (BUMEX) 1 MG tablet Take 1 tablet by mouth daily 90 tablet 3 06/12/2025 ActiveStart: 81-32-5008fcpv 1 tablet by mouth once dailybumetanide (BUMEX) 0.5 MG tablet Take 1 tablet by mouth daily 30 tablet 0 10/24/2023 Active carvedilol 6.25 mg oral tablet (6 sources)alpha-Adrenergic Janny, beta-Adrenergic BlockerStart: 10-24-2023 take 1 tablet by mouth twice daily at mealtimecarvedilol (COREG) 6.25 MG tablet Take 1 tablet by mouth 2 times daily (with meals) 60 tablet 3 10/24/2023 Active Start: 82-34-3237gfxrpxjxis (COREG) 6.25 MG tabletcholecalciferol 0.125 mg oral capsule (6 sources)Vitamin DStart: 24-67-6571Ltxbbzhqrmbnyrl (VITAMIN D3) 125 MCG (5000 UT) CAPSclopidogrel 75 mg oral tablet (9 sources)P2Y12 Platelet InhibitorStart: 76-73-7439dlhl 1 tablet by mouth once dailyclopidogrel (PLAVIX) 75 MG tablet TAKE 1 TABLET BY MOUTH DAILY 90 tablet 2 03/25/2025 ActiveStart: 54-31-1352bmpq 1 tablet by mouth once dailyclopidogrel (PLAVIX) 75 MG tablet TAKE 1 TABLET BY MOUTH DAILY 90 tablet 3 09/21/2023 Active Start: 76-45-6898grev 1 tablet by mouth once dailyPlavix 75 mg Tab 75 mg = 1 tab(s), Oral, Daily, Refills(s) 0 Start Date: 09/01/22 Status: OrderedStart: 72-49-9928wvjb 1 tablet by mouth once dailyclopidogrel (PLAVIX) 75 MG tablet Take 1 tablet by mouth daily 30 tablet 3 05/15/2022 Activedofetilide 0.25 mg oral capsule (7 sources)AntiarrhythmicStart: 75-14-1360yhar 1 capsule by mouth every twelve hoursdofetilide (TIKOSYN) 250 MCG capsule Take 1 capsule by mouth every 12 hours 60 capsule 3 10/24/20230929Wzgtmj2 ml droperidol 2.5 mg/ml injection (1 source)Dopamine-2 Receptor AntagonistStart: .625 mg, IntraVENous, ONCE PRN, 1 dose, Starting on Nichelle 09/10/25 at 1101, Until Discontinued, Nausea, Initial antiemetic therapy., PACU onlyDULoxetine 60 mg delayed release oral capsule (11 sources)Serotonin and Norepinephrine Reuptake InhibitorStart: 89-25-3416xopn 2 capsules by mouth once dailyduloxetine 60 mg Cap-DR = 2 cap(s), Oral, Daily, Refills(s) 0 Start Date: 08/25/22 Status: OrderedStart: 11-27-5387eqne 1 capsule by mouth once dailyDULoxetine (CYMBALTA) 60 MG extended release capsule Take 1 capsule by mouth daily 11/20/2021 Activeempagliflozin 10 mg oral tablet (5 sources)Sodium-Glucose Cotransporter 2 InhibitorStart: 27-86-3816rhxm 1 tablet by mouth once dailyJARDIANCE 10 MG tablet Take 1 tablet by mouth daily 05/25/2025 ActiveStart: 49-44-2027feqp 1 tablet by mouth once dailyempagliflozin (JARDIANCE) 10 MG tablet Take 1 tablet by mouth daily 30 tablet 3 10/25/2023 Activefurosemide 40 mg oral tablet (2 sources)Loop DiureticStart: 29-93-0512zhnu 1 tablet by mouth once dailyLasix 40 mg Tab 40 mg = 1 tab(s), Oral, Daily, Refills(s) 0 Start Date: 08/25/22 Status: Orderedtake 1 tablet by mouth once dailyfurosemide (LASIX) 40 MG tablet Take 40 mg by mouth daily 0 Activeglimepiride 4 mg oral tablet (3 sources)SulfonylureaStart: 89-03-7279lklfhznzspb (AMARYL) 4 MG tabletInsulin Aspart FlexPen (1 source)Start: 60-23-3019Zkbyvss Aspart FlexPen as directed, Refills(s) 0 Start Date: 08/25/22 Status: Ordered3 ml insulin aspart, human 100 unt/ml cartridge (7 sources)Insulin Analoginsulin aspart (NOVOLOG) 100 UNIT/ML injection cartridge Inject into the skin 3 times daily (beforemeals) ActiveInsulin Glargine (8 sources)Insulin AnalogInsulin Glargine (TOUJEO SOLOSTAR SC) Inject 46 Units into the skin in the morning and at bedtime Activeinsulin glargine (LANTUS) 100 UNIT/ML injection vial Inject 36 Units into the skin nightly Activelabetalol (NORMODYNE;TRANDATE) injection 10 mg (1 source)Start: 48-45-4507vaaxqteth (NORMODYNE;TRANDATE) injection 10 mgLantus Solostar Pen (1 source)Start: 09-49-6163bndfyc 30 [IU] by subcutaneous injection twice daily Lantus Solostar Pen 30 unit(s), SubCutaneous, BID, Refill(s) 0 Start Date: 08/25/22 Status: Orderedlisinopril 10 mg oral tablet (4 sources)Angiotensin Converting Enzyme InhibitorStart: 75-36-4900pmev 1 tablet by mouth once dailylisinopril 10 mg Tab 10 mg = 1 tab(s), Oral, Daily, Refills(s) 0 Start Date: 08/25/22 Status: OrderedStart: 54-70-9956wmrwtauyfi (PRINIVIL;ZESTRIL) 10 MG tabletmagnesium oxide 400 mg oral tablet (5 sources)take 1 tablet by mouth once dailymagnesium oxide (MAG-OX) 400 (240 Mg) MG tablet Take 1 tablet by mouth daily Activemeloxicam 15 mg oral tablet (3 sources)Nonsteroidal Anti-inflammatory DrugStart: 00-68-5407vkxdxwiey (MOBIC) 15 MG lukgoh76 hr metFORMIN hydrochloride 500 mg extended release oral tablet (3 sources)BiguanideStart: 46-36-0964zjdCKJTZH (GLUCOPHAGE-XR) 500 MG extended release rakjie36 hr metoprolol succinate 50 mg extended release oral tablet (4 sources)beta-Adrenergic BlockerStart: 61-07-2693wpte 0.5 tablet by mouth at bedtimemetoprolol succinate (TOPROL XL) 50 MG extended release tablet Take 0.5 tablets by mouth in the morning and at bedtime 180 tablet 3 09/10/2025 Active Start: 06-12-2025 End: 54-65-9935sdun 1 tablet by mouth at bedtimemetoprolol succinate (TOPROL XL) 50 MG extended release tablet Take 1 tablet by mouth in the morning and at bedtime 180 tablet 3 06/12/2025 09/10/2025 DiscontinuedStart: 63-69-2484vner 1 tablet by mouth twice dailyMetoprolol tartrate 25 mg Tab 25 mg = 1 tab(s), Oral, BID, Refills(s) 0 Start Date: 09/01/22 Status:Orderednaloxone 0.4 mg in 10 mL sodium chloride syringe (1 source)Start: 49-63-1332DrrtlAMHbia, PRN, Opioid Reversal, Starting on Nichelle 09/10/25 at 1101, PRN if respiratory rate is less than 6/min and patient is difficult to arouse then notify physician STAT. Mix 9 mL of sodium chloride 0.9% with 0.4 mg (1 mL) of naloxone (NARCAN) in 10 mL syringe. (Note: dilution is 0.04 mg/mL) Give 0.08 mg (2 mL of special dilution), slow IV push, repeat up to 0.4 mg (10 mL) or until patient isresponsive to physical stimulation and respiratory rate is equal to or greater than 6 breaths/min. Continue to observe, if no response within 3 minutes of administration of 0.4 mg (10 mL) total, repeat dose (0.4 mg as administered previously). Concentration 0.04 mg/mL, PACU onlynitroglycerin 0.4 mg sublingual tablet (1 source)Nitrate VasodilatorStart: 54-72-0322cdafcdcvhdgpv 0.4 mg sublingual Tab 0.4 mg = 1 tab(s), SubLingual, q5min, PRN for chest pain, Refills(s) 0 Start Date: 08/25/22 Status: Orderedoxaprozin 600 mg oral tablet (3 sources)Nonsteroidal Anti-inflammatory DrugStart: 00-95-5000nnqgsszjz (DAYPRO) 600 MG tabletpantoprazole 40 mg delayed release oral tablet (7 sources)Proton Pump InhibitorStart: 96-37-3741rrvc 1 tablet by mouth once daily before breakfastpantoprazole (PROTONIX) 40 MG tablet TAKE ONE TABLET BY MOUTH ONCE EVERY MORNING BEFORE BREAKFAST 90 tablet 2 02/17/2025 ActiveStart: 23-68-6973uijr 1 tablet by mouth once daily before breakfastpantoprazole (PROTONIX) 40 MG tablet Take 1 tablet by mouth every morning (before breakfast) 90 tablet 3 02/22/2024 ActiveStart: 72-90-2368sarh 1 tablet by mouth once daily before breakfastpantoprazole (PROTONIX) 40 MG tablet Take 1 tablet by mouth every morning (before breakfast) 30 tablet 3 10/25/2023 Activepioglitazone 30 mg oral tablet (3 sources)Peroxisome Proliferator Receptor alpha Agonist, Peroxisome Proliferator Receptor gamma Agonist, ThiazolidinedioneStart: 11-02-2021 pioglitazone (ACTOS) 30 MG tabletpramipexole dihydrochloride 0.5 mg oral tablet (11 sources)Nonergot Dopamine AgonistStart: 92-70-8287yxto 1 tablet by mouth once dailypramipexole (MIRAPEX) 0.5 MG tablet Take 1 tablet by mouth daily 10/03/2021 Activesacubitril 24 mg / valsartan 26 mg oral tablet (2 sources)Angiotensin 2 Receptor BlockerStart: 10-61-5782uiif 1 tablet by mouth twice dailyENTRESTO 24-26 MG per tablet Take 1 tablet by mouth 2 times daily 05/25/2025 ActiveSITagliptin 100 mg oral tablet (3 sources)Dipeptidyl Peptidase 4 InhibitorStart: 17-60-0207NHVFULL 100 MG zevklm63 ml sodium chloride 9 mg/ml injection (5 sources)Start: 21-16-5425VxsudNCGrjl, at 5-250 mL/hr, PRN, if patient receiving piggyback infusions and maintenance fluids are not ordered, Starting on Nichelle 09/10/25 at 1101, For piggyback infusion, administer at same rate as piggyback for a total of 25 mL. Enter 25 mL into dose field and piggyback rate into rate field of order. If piggyback is infusing at a rate less than 100 mL/hr, enter 25 mL into dose field and 100 mL/hr into rate field of order., PACU onlyStart: -40 mL, IntraVENous, EVERY 12 HOURS SCHEDULED (2 times per day), First dose on Nichelle 09/10/25 at 1130, Until Discontinued, For Line Patency: Peripheral IV = 5 mL; Midline or Central Line = 10 mL/lumen. If following IV push medication, administer flush at same rate as the IV push. Flush volume is determined by type of infusion therapy being given. For non- viscous solutions use: Peripheral IV = 5 mLMidline or Central Line = 10 mL/lumen For viscous solutions (i.e. blood components, parenteral nutrition, contrast media, or after obtaining blood sample) use: Peripheral IV = 10 mL Midline or Central Line = 20 mL/lumen, PACU onlyStart: -40 mL, IntraVENous, PRN, Starting on Nichelle 09/10/25 at 1101, Until Discontinued, Line Care, After every IV line use, For Line Patency: Peripheral IV = 5 mL; Midline or Central Line = 10 mL/lumen. If following IV push medication, administer flush at same rate as the IV push. Flush volume is determined by type of infusion therapy being given. For non-viscous solutions use: Peripheral IV = 5 mL Midline or Central Line = 10 mL/lumen For viscous solutions (i.e. blood components, parenteral nutrition, contrast media, or after obtaining blood sample) use: Peripheral IV = 10 mL Midline or Central Line = 20 mL/lumen, PACU onlyStart: 69-32-5430UwapeBCXuub, at 75 mL/hr, CONTINUOUS, Starting on Nichelle 09/10/25 at 0730, Pre-Procedure(Cath) Start: .9 % sodium chloride infusionspironolactone 25 mg oral tablet (7 sources)Aldosterone AntagonistStart: 73-82-6531wgxn 1 tablet by mouth once dailyspironolactone (ALDACTONE) 25 MG tablet Take 1 tablet by mouth daily 30 tablet 3 10/25/2023 ActiveSymbicort 160/4.5 inhalation aerosol with adapter (1 source)Start: 48-82-2053yqjb 2 puff(s) by inhalation twice dailySymbicort 160/4.5 inhalation aerosol with adapter 2 puff(s), Inhalation, BID, Refill(s) 0 Start Date: 08/25/22 Status: Orderedterbinafine 250 mg oral tablet (2 sources)Allylamine AntifungalStart: 81-75-3662ejgj 1 tablet by mouth once dailyterbinafine 250 mg oral tablet 250 mg = 1 tab(s), Oral, Daily, Refills(s) 0 Start Date: 08/25/22 Status: Orderedtake 1 tablet by mouth once dailyterbinafine (LAMISIL) 250 MG tablet Take 250 mg by mouth daily 0 ActivetiZANidine 4 mg oral tablet (4 sources)Central alpha-2 Adrenergic AgonistStart: 43-97-4560gdmd 2 tablets by mouth at bedtimetiZANidine 4 mg Tab 8 mg = 2 tab(s), Oral, Bedtime, Refills(s) 0 Start Date: 08/25/22 Status: OrderedStart: 91-64-7742xxVRRpjmbx (ZANAFLEX) 4 MG hr tolterodine tartrate 2 mg extended release oral capsule (3 sources)Cholinergic Muscarinic AntagonistStart: 99-39-0303xnmq 1 capsule by mouth once dailytolterodine (DETROL LA) 2 MG extended release capsule Take 1 capsule by mouth daily 10/14/2024 ActiveVitamin D (1 source)Start: 65-46-4202eaks 5000 [IU] by mouth once dailyVitamin D 5,000 unit(s), Oral, Daily, Refills(s) 0 Start Date: 08/25/22 Status: Ordered Completed/Discontinued Medications MedicationDrug Class(es)DatesSig (Normalized)Sig (Original)1 ml diphenhydrAMINE hydrochloride 50 mg/ml cartridge (1 source)Histamine-1 Receptor AntagonistStart: 64-98-092685.5 mg, IntraVENous, ONCE PRN, 1 dose, Starting on Nichelle 09/10/25 at 1101, Until Discontinued, Itching, IV Push at rate not to exceed 25 mg/min., PACU only2 ml fentaNYL 0.05 mg/ml injection (1 source)Opioid AgonistStart: mcg, IntraVENous, EVERY 5 MIN PRN, 2 doses, Starting on Nichelle 09/10/25 at 1101, Until Discontinued, Pain Moderate (4- 6) OR per patient request for pain score (7-10), For Phase I. If Phase II oral narcotics have been administered in the last 60 minutes, do not administer IV narcotics unless specifically approved by provider., PACU only1 ml HYDROmorphone hydrochloride 1 mg/ml cartridge (1 source)Opioid AgonistStart: 50.5 mg, IntraVENous, EVERY 5 MIN PRN, 2 doses, Starting on Nichelle 09/10/25 at 1101, Until Discontinued, Pain Severe (7- 10), For Phase I. If Phase II oral narcotics have been administered in the last 60 minutes, do not administer IV narcotics unless specifically approved by provider., PACU onlyiopamidol (ISOVUE-370) 76 % injection 122 mL (1 source)Start: 08-18-2025 End: 58-68-5209btlk 1 dose intravenously bcut773 mL, IntraVENous, IMG ONCE PRN, 1 dose, Starting on Sun08/18/25 at 1315, Until Sun08/18/25 at 1350, Other2 ml midazolam 1 mg/ml injection (1 source)BenzodiazepineStart: mg, IntraVENous, ONCE PRN, 1 dose, Starting on Nichelle 09/10/25 at 1101, Until Discontinued, Anxiety,PACU only24 hr NIFEdipine 30 mg extended release oral tablet (7 sources)Dihydropyridine Calcium Channel BlockerStart: 12-13-2024 End: 99-68-4600ocaf 1 tablet by mouth once dailyNIFEdipine (ADALAT CC) 30 MG extended release tablet Take 1 tablet by mouth daily 12/13/2024 09/10/2025 Discontinued (Stop Taking at Discharge)Start: 42-77-7455zbgu 1 tablet by mouth at bedtimeNIFEdipine 30 mg ER Tab 30 mg = 1 tab(s), Oral, Bedtime, Refills(s) 0 Start Date: 08/25/22 Status: OrderedStart: 99-15-9436XQOHprvill (PROCARDIA XL) 30 MG extended release tabletmicroencapsulated potassium chloride 10 meq extended release oral tablet (5 sources)Start: 10-24-2023 End: 32-63-4173ccoxhbhfy chloride (KLOR-CON M) 10 MEQ extended release tablet Take 3 tablets by mouth 2 times daily 180 tablet 10/24/2023 09/10/2025 Discontinued (Stop Taking at Discharge)prochlorperazine 5 mg/ml injectable solution (1 source)PhenothiazineStart: mg, IntraVENous, ONCE PRN, 1 dose, Starting on Nichelle 09/10/25 at 1101, Until Discontinued, Nausea, Secondary antiemetic therapy., PACU onlyregadenoson (LEXISCAN) injection 0.4 mg (1 source)Start: 01-24-2024 End: 85-09-7809asygahncdsq (LEXISCAN) injection 0.4 mgtechnetium sestamibi (CARDIOLITE) injection 30 millicurie (1 source)Start: 01-25-2024 End: 66-70-0975ncnjjwmvqp sestamibi (CARDIOLITE) injection 30 millicurie Problems Active Problems Problem ClassificationProblemDateDocumented DateEpisodic/ChronicAbdominal hernia (1 source)Hernia of anterior abdominal venf82-58-3480DmfmcorqTimtdlk disorders (1 source)Panic disorder [episodic paroxysmal anxiety]; Translations: [PANIC DISORDER [EPISODIC PAROXYSMAL ANXIETY]]Onset: 38-40-2605UuaphaiKwejixn dysrhythmias (20 sources)Supraventricular tachycardia; Translations: [Atrial flutter]Onset: 209350-51-6524ZjeppjsHfbgryt obstructive pulmonary disease and bronchiectasis (2 sources)Chronic obstructive lung disease; Translations: [Chronic obstructive pulmonary disease, unspecified]Onset: 202815-70-6931PulplloKsdpqdhjxf associated with dizziness or vertigo (1 source)Dizziness and giddiness; Translations: [DIZZINESS AND GIDDINESS]Onset: 42-03-6456GqzospmrVwvdgjmilr heart failure; nonhypertensive (20 sources)Congestive heart failure; Translations: [Heart failure, unspecified] Onset: 027324-83-9023NuhlbqfHwxkakxr atherosclerosis and other heart disease (13 sources)Atherosclerotic heart disease of jamul coronary artery without angina pectoris; Translations: [Coronary arteriosclerosis]Onset: 09-13-2017 47-37-6525PoehxthGwzktrjhpz and other anemia (1 source)Anemia, unspecified; Translations: [ANEMIA UNSPECIFIED]Onset: 38-29-3142ArhizyieFvnhynal mellitus with complications (8 sources)Type 2 diabetes mellitus with hyperglycemia; Translations: [Type II diabetes mellitus uncontrolled]Onset: 909939-79-1689DdfkbcfStknsxen mellitus without complication (6 sources)Type 2 diabetes mellitus without complications; Translations: [Diabetes mellitus]Onset: 945205-44-0553HxkghtiYipgykvx mellitus without complication (1 source)Other abnormal glucose; Translations: [OTHER ABNORMAL GLUCOSE]Onset: 19-75-3222EwdybnbyEwrdfqfif of lipid metabolism (8 sources)Hyperlipidemia, unspecified; Translations: [Mixed hyperlipidemia] Onset: 818279-59-9256WlfwnxqEdpilnvyb hypertension (9 sources)Essential (primary) hypertension; Translations: [Essential hypertension]Onset: 509532-28-3317MfyqdlmYlrcnrwcz of unspecified nature or uncertain behavior (3 sources)Neoplasm of uncertain behavior of skin; Translations: [Neoplasm of uncertain behavior of skin]Onset: 77-97-6898LdsnlmyjMbmncqonmse chest pain (1 source)Chest pain, unspecified; Translations: [CHEST PAIN UNSPECIFIED]Onset: 40-31-6653PwzjuqtsCirsurbgo or stenosis of precerebral arteries (6 sources)Occlusion and stenosis of bilateral carotid arteries; Translations: [Bilateral stenosis of carotid arteries]Onset: 03-00-2803FktjxvgDogdt nutritional; endocrine; and metabolic disorders (1 source)Body mass index 30+ - rzqogmh56-39-8671EtalqjvZlnlk nutritional; endocrine; and metabolic disorders (7 sources)Body mass index 40+ - severely obese; Translations: [Morbid (severe) obesity due to excess calories]Onset: 141657-72-8708FcljddiCesec upper respiratory disease (1 source)Other specified disorders of nose and nasal sinuses; Translations: [OTH SPEC D/O NOSE NASAL SINUSES]Onset: 51-65-5798KfyecpwjSubjc upper respiratory infections (5 sources)Chronic sinusitis, unspecified; Translations: [CHRONIC SINUSITIS UNSPECIFIED]Onset: 52-64-7824KuypavzZjindfqpy (1 source)Right -36-2957UozbawgSijstjzrct and visceral atherosclerosis (8 sources)Vascular insufficiency of intestine; Translations: [Peripheral vascular disease, unspecified]Onset: 277489-11-7205HyrxhpoDocoxhmr codes; unclassified (7 sources)Obstructive sleep apnea syndrome; Translations: [Obstructive sleep apnea (adult) (pediatric)]Onset: [id number] codes; unclassified (1 source)Ceyvtshj01-03-7978UlelopkuBmghlyfdqxu; intervertebral disc disorders; other back problems (1 source)Cervical hbyknkhmhwi05-66-9576BxggkwcRvavqabzb-ervpyzp disorders (6 sources)Smoker; Translations: [Nicotine dependence, cigarettes, uncomplicated]Onset: 378663-77-7421LrafrxkTpfiqfuwumnu (2 sources)Unknown / UNK(Unknown)Onset: 40-54-8896Ecqysldzyggv (2 sources)Unspecified intestinal obstruction, unspecified as to partial versus complete obstruction; Translations: [UNSP INTESTNL OBST, UNSP TO PARTIAL VERSUS COMPLETE OBST]Onset: 46-30-0754Dmqqrmdkoefp (1 source)History of small bowel fugqitoqecn56-05-2287Jmsaqtruqpur (4 sources)CONTACT W/AND (SUSP) EXPOS COVID-19; Translations: [CONTACT W/AND (SUSP) EXPOS COVID-19]Onset: 18-64-5032Kpgeahwnntlu (1 source)COUGH, UNSPECIFIED; Translations: [COUGH, UNSPECIFIED]Onset: 75-37-6030Wmmvlswifxif (1 source)Other persistent atrial fibrillation; Translations: [Other persistent atrial fibrillation (HCC)]Onset: 08-18-2025 Past or Other Problems Problem ClassificationProblemDateDocumented DateEpisodic/ChronicAcute and unspecified renal failure (7 sources)Acute injury of kidney; Translations: [Acute kidney failure, unspecified]Onset: 207869-11-1889VinfywltMfagpnwf atherosclerosis and other heart disease (1 source)Presence of coronary angioplasty implant and graft; Translations: [PRESENCE COR ANGPLSTY IMPLANT AND GRAFT]Onset: 07-33-8182PzuvabndLrvfiudaay and other anemia (7 sources)Normocytic normochromic anemia; Translations: [Anemia, unspecified] Onset: 038783-76-3807VtrdltahUzxwk and electrolyte disorders (8 sources)Hypo-osmolality and hyponatremia; Translations: [Hyponatremia]Onset: 983928-58-7458EwdsqtorGklpwsmudk obstruction without hernia (4 sources)Ileus, unspecified; Translations: [Partial intestinal obstruction, unspecified as to cause]Onset: 88-69-9242SgxrvfruSevxc aftercare (1 source)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; Translations: [SPA CONSULTANT USE ORAL HYPOGLYCEMIC DX]Onset: 87-43-0273HvmhdnezBokkh aftercare (1 source)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; Translations: [OTH SPA CONSULTANT CURRENT DRUG THERAPY]Onset: 44-51-9769DqpulnefMskyg circulatory disease (7 sources)History of atrial flutter; Translations: [Personal history of other diseases of the circulatory system]Onset: 098912-21-2842FxajatflHhbmf connective tissue disease (1 source)Arthrodesis status; Translations: [ARTHRODESIS STATUS]Onset: 61-01-4776QwqbxanlBxhro upper respiratory disease (1 source)Nasal congestion; Translations: [NASAL CONGESTION]Onset: 12-03-2022 EpisodicResidual codes; unclassified (7 sources)Edema; Translations: [Edema, unspecified]Onset: EpisodicSpondylosis; intervertebral disc disorders; other back problems (8 sources)Low back pain; Translations: [Lumbar radiculopathy]Onset: 08-28-2022 27-78-0334KpkbtzqrKikguarueynw (1 source)CONTACT W/AND (SUSP) EXPOS COVID-19; Translations: [CONTACT W/AND (SUSP) EXPOS COVID-19]Onset: 12-01-2022 Results Test NameValueInterpretationReference RangeFacilityHgb Free, Plasmaon 09-12-2025 Hgb Free, Lncvcb89.9 mg/dLHigh0.0-9.7[facility] CenterComment on above:Result Comment: (NOTE) Performed By: [employer] [address] [place] [address] Assembler Watch Train: Benedicto Howe MD, PhD CLIA Number: [id number] By: #### BFR ####[facility] [address] [place] [address] lab Director: Raymond Cavazos MD#### RETCT, CDP ####[facility] [address] [place] [address] lab Director: Haja Franz MDACTon 94-47-1744PCH221 htuEtwn08-634JgufrKettering Health Behavioral Medical CenterACT340 xrjPkvq27-783MnmgbKettering Health Behavioral Medical CenterACT345 xeyJsso99-172XhybrKettering Health Behavioral Medical CenterACT345 meuGfrq79-386LynrwKettering Health Behavioral Medical CenterACT304 wdqCcyd60-558JbdukK[facility] Health [facility] Center Activated clotting timeon 95-17-2968XMF Coag (Bld)345 sHighBChildren's Hospital of The [facility]'s Daughters HealthInterpretation and review of laboratory resultsAbnormalBon SecSelect [facility] SecPlaquemines [facility] HealthACT Coag (Bld)340 sHighBon [facility] Health Interpretation and review of laboratory resultsAbnormalBon SecPlaquemines [facility] Health [facility] HealthACT Coag (Bld)345 sHighBon SecPlaquemines Parish [facility] Health Interpretation and review of laboratory resultsAbnormalBon SecTri[facility] Bon [facility] Hospitaly HealthACT Coag (Bld)345 sHighBon [facility] Health Interpretation and review of laboratory resultsAbnormalBon [facility] Merc[facility] HealthACT Coag (Bld)304 sHighBon [facility] Interpretation and review of laboratory resultsAbnormalBon [facility] Bon [facility] HospitalBUN, POCon 30-29-9103Dxbu nitrogen [Mass/Vol]33 mg/dL High8-26[facility] Medical CenterCBC with Auto Differentialon 09-10-2025 Basophils (Bld) [#/Vol]0.11 10*3/uLBon [facility] HospitalBasophils/100 WBC (Bld)1 %0 - 2 %[facility]'S HospitalEosinophils (Bld) [#/Vol]0.18 10*3/uLBon [facility] HospitalEosinophils/100 WBC (Bld)1 %1 - 4 %[facility] Erythrocyte distribution width (RBC) [Ratio]15.9 %High11.8 - 14.4 %[facility]'S HospitalHematocrit (Bld) [Volume fraction]40.2 %36.3 - 47.1 %[facility]'S HospitalHemoglobin (Bld) [Mass/Vol]12.8 g/dL11.9 - 15.1 g/dLBon [facility] HospitalImmature granulocytes (Bld) [#/Vol]0.16 10*3/uLBon [facility] HospitalImmature granulocytes/100 WBC (Bld)1 %Fyws0Msu [facility] Interpretation and review of laboratory resultsAbnormAugusta Health Lymphocytes/100 WBC (Bld)20 %Low24 - 43 %[facility]'S HospitalLymphocytes/100 WBC (Bld)3.02 %[facility] CenterH (RBC) [Entitic mass]29.2 pg25.2 - 33.5 pgBon [facility] HospitalHC (RBC) [Mass/Vol]31.8 g/dL28.4 - 34.8 g/dLBon SecAdams County HospitalV (RBC) [Entitic vol]91.8 fL82.6 - 102.[address] Mary'S HospitalMonocytes/100 WBC (Bld)5 %3 - 12 %[facility] Monocytes/100 WBC (Bld)0.78 %[facility] Hospitaly HealthNeutrophils/100 WBC (Bld)72 %High36 - 65 %[facility] HealthNucleated RBC/100 WBC (Bld) [Ratio]0.0 % 0.0 per 100 WBCBon Secours [facility] Hospitaly HealthPlatelet, Jayswfwxxofv928Fik [facility]ours [facility] HealthPlatelets (Bld) [#/Vol]See Reflexed IPF ResultBon SecOthello Community Hospitaly HealthPlatelets reticulated/100 platelets Auto (Bld)8.2 %1.1 - 10.3 %Bon SecOthello Community Hospitaly HealthRBC (Bld) [#/Vol]4.38 10*6/uL3.95 - 5.11 m/uLBon [facility] Hospitaly HealthRBC (Bld) [#/Vol]ANISOCYTOSIS PRESENTBon [facility] HealthSegmented neutrophils/100 WBC (Bld)10.90 %HighBon SecOthello Community Hospitaly HealthWBC other (Bld) [#/Vol]15.2HighBon [facility]ours [facility] HealthBon SecOthello Community Hospitaly HealthCBC with Diffon 86-65-3410Yuv. Basophil0.11 k/uLNormal0.00-0.20[facility] Comment on above:Performed By: #### ALIREZABFR ####[facility] [address] [place], [place] [id number] Lab Director: Raymond Cavazos MD#### CAITLIN MARIANO ####[facility] HospitalKeystone Heart Lazoqhskieiz[address] [place], [place] [address] [facility] Director: Tosha Lagunas.Imm.Granulocyte0.16 k/uLNormal0.00-0.30[facility] Medical CenterComment on above:Performed By: #### AHBFR ####[facility] [address] [place], [place] [id number] Lab Director: Raymond Cavazos MD#### MONTSERRAT CDP ####[facility] [address] [place] [id number] Lab Director: Tosha Lagunas.Neutrophil (Seg)10.90 k/uLHigh1.50-8.10[facility] Medical CenterComment on above:Performed By: #### AHBFR ####[facility] [address] [place] [address] Lab Director: Raymond Cavazos MD#### JENNIECT, CDP ####[address] [address] Lab Director: Haja Franz MDBasophils/100 WBC (Bld)1 %Normal0-2[facility] Comment on above:Performed By: #### AHBFR ####[facility] [address] [place] [address] Lab Director: Raymond Cavazos MD#### MONTSERRAT, CDP ####[place] [address] Lab Director: Haja Franz MDEosinophils (Bld) [#/Vol]0.18 10*3/uLNormal 0.00-0.44[facility] Medical CenterComment on above:Performed By: #### AHBFR ####[facility] [address] [place] [address] Lab Director: Raymond Cavazos MD#### RETCT, CDP ####[place] [address] Lab Director: Haja Franz MDEosinophils/100 WBC (Bld)1 %Normal1-4[facility] Comment on above:Performed By: #### AHBFR ####[facility] [address] [place] [address] Lab Director: Raymond Cavazos MD#### RETCT, CDP ####[facility] [address] [place] [address] Lab Director: Haja Franz MDErythrocyte distribution width (RBC) [Ratio]15.9 % High11.8-14.4[facility] Medical CenterComment on above:Performed By: #### AHBFR ####[facility] [address] [place] [address] Lab Director: Raymond Cavazos MD#### RETCT, CDP ####[facility] [address] [place] [address] Lab Director: Haja Franz MDHematocrit (Bld) [Volume fraction]40.2 %Tqhusm01.3-47.1MUCSF Medical CenterComment on above:Performed By: #### AHBFR ####[facility] [address] [place] [address] Lab Director: Raymond Cavazos MD#### MONTSERRAT, CDP ####[place] [address] Lab Director: Haja Franz MDHemoglobin (Bld) [Mass/Vol] 12.8 g/rPOuvkxi80.9-15.1MUCSF Medical CenterComment on above: Performed By: #### AHBFR ####[facility] [address] [place] [address] Lab Director: Raymond Cavazos MD#### MONTSERRAT, CDP ####[facility] [address] [place] [address] Lab Director: Kd Lagunas granulocytes/100 WBC (Bld)1 %Yuow6BrnrdKettering Health Behavioral Medical CenterComment on above:Performed By: #### AHBFR ####[facility] [address] [place] [address] Lab Director: Raymond Cavazos MD#### RETCT, CDP ####[facility] [address] [place] [address] Lab Director: Haja Franz MDLymphocytes (Bld) [#/Vol]3.02 10*3/uLNormal 1.10-3.70[facility] CenterComment on above:Performed By: #### AHBFR ####[facility] [address] [place] [address] Lab Director: Raymond Cavazos MD#### RETCT, CDP ####[facility] [address] [place] [address] Lab Director: Haja Franz MDLymphocytes/100 WBC (Bld)20 %Bvz94-33SdpjlKettering Health Behavioral Medical Center Comment on above:Performed By: #### AHBFR ####[facility] [address] [place] [address] Lab Director: Raymond Cavazos MD#### MONTSERRAT, CDP ####[facility] [address] [place] [address] Lab Director: CAMILLA Lagunas (RBC) [Entitic mass]29.2 tlIzsehi25.2-33.5[facility] Medical CenterComment on above:Performed By: #### AHBFR ####[facility] [address] [place] [id number] Lab Director: Raymond Cavazos MD#### MONTSERRAT, CDP ####[facility] [address] [place] [address] Lab Director: CAMILLA LagunasC (RBC) [Mass/Vol]31.8 g/dL Ljobrd75.4-34.8[facility] Medical CenterComment on above:Performed By: #### AHBFR ####[facility] [address] [place] [address] Lab Director: Raymond Cavazos MD#### RETCT, CDP ####[facility] [address] [place] [address] Lab Director: Haja Madoff, MDMCV (RBC) [Entitic vol]91.8 uLOtyqfl70.6-102.9[facility] Medical CenterComment on above:Performed By: #### AHBFR ####[facility] [address] [place] [address] Lab Director: Raymond Cavazos MD#### RETCT, CDP ####[facility] [address] [place] [phone] Director: EMELIA Lagunasonocytes (Bld) [#/Vol]0.78 10*3/uLNormal 0.10-1.20[facility] CenterComment on above:Performed By: #### AHBFR ####[facility] [address] [place] [address] Lab Director: Raymond Cavazos MD#### RETCIARA, CDP ####[facility] [address] [place] [address] Lab Director: EMELIA Lagunasonocytes/100 WBC (Bld)5 %Normal3-12[facility] Comment on above:Performed By: #### AHBFR ####[facility] [address] [place] [address] Lab Director: Raymond Cavazos MD#### MONTSERRAT, CDP ####[facility] [address] [place] [address] Lab Director: Haja Franz MDNeutrophil (Seg)72 %Bhbz95-28ObeasKettering Health Behavioral Medical CenterComment on above:Performed By: #### AHBFR ####[facility] [address] [place] [address] Lab Director: Raymond Cavazos MD#### RETCT, CDP ####[facility] [address] [place] [phone] Director: Haja Franz MDNRBC Automated0.0 per 100 WBCNormal0.0[facility] Medical CenterComment on above:Performed By: #### AHBFR ####[facility] [address] [place] [address] Lab Director: Raymond Cavazos MD#### RETCT, CDP ####[facility] [address] [place] [address] Lab Director: Sarah Lagunas CountSee Reflexed IPF BkqlnxFcvtfm554-970XvqyeKettering Health Behavioral Medical CenterComment on above: Performed By: #### AHBFR ####[facility] [address] [place] [address] Lab Director: Raymond Cavazos MD#### MONTSERRAT, CDP ####[place] [address] Lab Director: Sarah Lagunas Fluoresc.201 k/jJDbilho043-290KqftwKettering Health Behavioral Medical CenterComment on above:Performed By: #### AHBFR ####[facility] [address] [place] [address] Lab Director: Raymond Cavazos MD#### MONTSERRAT, CDP ####[place] [address] Lab Director: CARLI Lagunas Immature Fract.8.2 %Normal1.1-10.3[facility] HospitalComment on above:Performed By: #### AHBFR ####[facility] [address] [place] [address] Lab Director: Raymond Cavazos MD#### RETCT, CDP ####[facility] [address] [place] [address] Lab Director: JOSE LagunasBC (Bld) [#/Vol]4.38 10*6/uL Normal3.95-5.11[facility] CenterComment on above:Performed By: #### AHBFR ####[facility] [address] [place] [address] Lab Director: Raymond Cavazos MD#### RETCT, CDP ####[facility] [address] [place] [address] Lab Director: ERNA Lagunas morphology finding Nom (Bld)ANISOCYTOSIS PRESENTNormalKettering Health Behavioral Medical CenterComment on above:Performed By: #### AHBFR ####[facility] [address] [place] [address] Lab Director: Raymond Cavazos MD#### JENNIECT, CDP ####[facility] [address] [place] [address] Lab Director: Haja Franz MDWBC (Bld) [#/Vol]15.2 10*3/uL High3.5-11.3[facility] Medical CenterComment on above:Performed By: #### AHBFR ####[facility] [address] [place] [address] Lab Director: Raymond Cavazos MD#### RETCT, CDP ####[facility] [address] [place] [id number] Lab Director: Haja Franz MDCHLORIDE (POC)on 72-81-6978Dvvvefkd [Moles/Vol]107 mmol/L98 - 107 mmol/LBon Secours Mercy HealthChloride (POC)on 83-45-3034Wbbjssnm [Moles/Vol]107 mmol/DTxyiof28-645DekyqKettering Health Behavioral Medical CenterComp Metabolic Pr/rfx MGon 11-02-6078Gyvdnof [Mass/Vol]3.4 g/dLLow3.5-5.2[facility] Comment on above:Performed By: #### CMPX, HAPT, LD #### [facility] [address] [place] [address] Raise Drill Operator: Haja Franz MDAlbumin/Glob Ratio1.0Citaaj8.0-2.5[facility] Medical CenterComment on above:Performed By: #### CMPX, HAPT, LD #### [facility] [address] [place] [address] Raise Drill Operator: Sully Lagunaskaline Jtcu628 U/WPoat60-667SyujyKettering Health Behavioral Medical CenterComment on above:Performed By: #### CMPX, HAPT, LD #### [facility] [address] [place] [address] Raise Drill Operator: Haja Franz MDALT [Catalytic activity/Vol]19 U/ESzhjqa13-91 [facility] CenterComment on above:Performed By: #### CMPX, HAPT, LD #### [address] [address] Raise Drill Operator: Haja Franz MDAnion gap [Moles/Vol]8 mmol/LLow9-16[facility] CenterComment on above:Performed By: #### CMPX, HAPT, LD #### [facility] [address] [address] Raise Drill Operator: Haja Franz MDAST [Catalytic activity/Vol]80 U/EValt42-29DcrrjKettering Health Behavioral Medical CenterComment on above:Result Comment: Specimen hemolysis has exceeded the interference as defined by Christianne. Value may be falsely increased. Suggest recollection if clinically indicated.Performed By: #### CMPX, HAPT, LD #### [facility] [address] [place] [address] Raise Drill Operator: Haja Franz MDBilirubin [Mass/Vol]2.1 mg/dLHigh0.0-1.2[facility] CenterComment on above:Performed By: #### CMPX, HAPT, LD #### [facility] [address] [place] [address] Raise Drill Operator: BOSSMAN Lagunasalcium [Mass/Vol]7.9 mg/dLLow8.6-10.4[facility] CenterComment on above:Performed By: #### CMPX HAPT, LD #### [facility] [place] [address] Raise Drill Operator: BOSSMAN Lagunashloride [Moles/Vol]111 mmol/UIdsg98-629PcwukKettering Health Behavioral Medical CenterComment on above:Performed By: #### CMPX HAPT, LD #### [facility] [address] [place] [address] Raise Drill Operator: Haja Franz MDCO2 [Moles/Vol]20 mmol/CGvqdbj62-16ExpzyKettering Health Behavioral Medical CenterComment on above:Performed By: #### CMPX HAPT, LD #### [facility] [address] [place] [address] Raise Drill Operator: BOSSMAN Lagunasreatinine [Mass/Vol]1.6 mg/dLHigh0.6-0.9[facility] CenterComment on above:Performed By: #### CMPX HAPT, LD #### [facility] [address] [place] [address] Raise Drill Operator: Haja Franz MDGFR/1.73 sq M.predicted among non-blacks MDRD (S/P/Bld) [Vol rate/Area]37 mL/min/{1.73_m2}Low>60[facility] CenterComment on above:Result Comment: These results are not intended for [...] or following therapy that affects renal tubular secretion.Performed By: #### CMPX, HAPT, LD #### [facility] [address] [place] [address] Raise Drill Operator: Haja Franz MDGlucose [Mass/Vol]210 mg/fJSnnd09-00LwidwUCSF Medical CenterComment on above:Performed By: #### CMPX, HAPT, LD #### [facility] [address] [place] [address] Raise Drill Operator: Haja Franz MDPotassium [Moles/Vol]5.7 mmol/LHigh3.7-5.3[facility] Medical CenterComment on above:Result Comment: Specimen hemolysis has exceeded the interference as defined by Christianne. Value may be falsely increased. Suggest recollection if clinically indicated.Performed By: #### CMPX, HAPT, LD #### [facility] [address] [place] [address] Raise Drill Operator: Haja Franz MDProtein [Mass/Vol]6.5 g/dLLow6.6-8.7[facility] CenterComment on above:Performed By: #### CMPX, HAPT, LD #### [facility] [address] [place] [address] Raise Drill Operator: JOSEPHINE Lagunasodium [Moles/Vol]139 mmol/SLmfuqm768-036KocsvKettering Health Behavioral Medical CenterComment on above:Performed By: #### CMPX, HAPT, LD #### [facility] [address] [place] [address] Raise Drill Operator: Haja Franz MDUrea nitrogen [Mass/Vol]37 mg/dLHigh6-20[facility] CenterComment on above:Performed By: #### CMPX, HAPT, LD #### [facility] [address] [place] [address] Raise Drill Operator: BOSSMAN Lagunasomprehensive Metabolic Panel w/ Reflex to MGon 51-13-9614Mbreupc [Mass/Vol]3.4 g/dLLow3.5 - 5.2 g/dLBon [facility] Albumin/Globulin [Mass ratio]1.1 {ratio}1.0 - 2.5[facility] HealthALP [Catalytic activity/Vol]122 U/LHigh35 - 104 U/LBon [facility]ours [facility] HealthALT [Catalytic activity/Vol]19 U/L10 - 35 U/LBon SecTriHealth Good Samaritan HospitalAnion gap [Moles/Vol]8 mmol/LLow9 - 16 mmol/LBon SecPlaquemines Parish [facility] Center HealthAST [Catalytic activity/Vol]80 U/LHigh10 - 35 U/LBon [facility] HealthComment on above: Specimen hemolysis has exceeded the interference as defined by Christianne. Value may be falsely increased. Suggest recollection if clinically indicated. Bilirubin [Mass/Vol]2.1 mg/dLHigh0.0 - 1.2 mg/dLBon SecPlaquemines Parish [facility] Center HealthCalcium [Mass/Vol]7.9 mg/dLLow8.6 - 10.4 mg/dLBon [facility] HealthChloride [Moles/Vol]111 mmol/LHigh98 - 107 mmol/LBon [facility] HealthCO2 [Moles/Vol] 20 mmol/L20 - 31 mmol/LBon [facility] HospitalCreatinine [Mass/Vol]1.6 mg/dL High0.6 - 0.9 mg/dLBon [facility] Solstice MedicalEst, Glom Filt Fpkz85Eln- PINFBon [facility] HospitalComment on above: These results are not intended for use [...] following therapy that affects renal tubular secretion. Glucose [Mass/Vol]210 mg/iPHnue59 - 99 mg/dLBon [facility] Hospitalours [facility] HealthPotassium [Moles/Vol]5.7 mmol/LHigh3.7 - 5.3 mmol/LBon [facility] HealthComment on above:Specimen hemolysis has exceeded the interference as defined by Christianne. Value may be falsely increased. Suggest recollection if clinically indicated. Protein [Mass/Vol]6.5 g/dLLow6.6 - 8.7 g/dLBon [facility] HospitalSodium [Moles/Vol]139 mmol/L136 - 145 mmol/LBon [facility] HospitalUrea nitrogen [Mass/Vol]37 mg/dLHigh6 - 20 mg/dLBon [facility] HospitalCreatinine W/GFR Point of Careon 01-07-0746Xvpjbnmvci [Mass/Vol]2.1 mg/dLHigh0.51 - 1.19 mg/dLBon [facility] HospitaleGFR, FUL53Smt- PINFBon [facility] HospitalComment on above: These results are not intended for use [...] following therapy that affects renal tubular secretion. Creatinine w/GFR, POCon 06-60-0072Vulaxrxuyi [Mass/Vol]2.1 mg/dLHigh0.51-1.19 [facility] CenterGFR/1.73 sq M.predicted among non-blacks MDRD (S/P/Bld) [Vol rate/Area]27 mL/min/{1.73_m2}Low>60[facility] HospitalComment on above:Result Comment: These results are not intended for [...] or following therapy that affects renal tubular secretion.Glucose (POC)on 75-92-3103Oqzumeu [Mass/Vol]148 mg/iKKraa16-268Nxoxh Orchard HospitalGlucose,Whole Blood on 67-67-7074Axfbtkw [Mass/Vol]189 mg/aPYttx83-731Tpsku Orchard HospitalHaptoglobinon 22-68-2457Eyfrrbjdmvx [Mass/Vol]141 mg/dL30 - 200 mg/dLBon [facility] HospitalComment on above:Specimen hemolysis has exceeded the interference as defined by Christianne. Value may be falsely decreased. Suggest recollection if clinically indicated. Rekwbaxllrd213 mg/rTTvokrn47-338FrgwmKettering Health Behavioral Medical CenterComment on above:Result Comment: Specimen hemolysis has exceeded the interference as defined by Christianne. Value may be falsely decreased. Suggest recollection if clinically indicated.Performed By: #### CMPX HAPT, LD #### [facility] [address] [place], [place] [id number] Raise Drill Operator: Haja Franz MDHemoglobin and hematocrit, bloodon 09-10-2025 Hematocrit (Bld) [Volume fraction]43 %36 - 46 %[facility] Hemoglobin (Bld) [Mass/Vol]14.5 g/dL12.0 - 16.0 g/dLBon [facility] Hgb/Hct, POCon 26-80-3711Ppirbtuquv (Bld) [Volume fraction]43 %Ffljua05-60UikiuKettering Health Behavioral Medical CenterHemoglobin (Bld) [Mass/Vol]14.5 g/fTBqsgfu93.0-16.0 [facility] Medical CenterLactate Dehydrogenaseon 45-76-4330TUU [Catalytic activity/Vol]383 U/RCshi008 - 214 U/LBon [facility] Park HospitalComment on above: Specimen hemolysis has exceeded the interference as defined by Christianne. Value may be falsely increased. Suggest recollection if clinically indicated. LDH [Catalytic activity/Vol]383 U/KGlft955-775NnxbvKettering Health Behavioral Medical Center Comment on above:Result Comment: Specimen hemolysis has exceeded the interference as defined by Christianne. Value may be falsely increased. Suggest recollection if clinically indicated.Performed By: #### CMPX HAPT, LD #### [facility] [address] [place] [address] Raise Drill Operator: Haja Franz MDNo Panel Informationon 22-55-6470Xomrnmtscnjlyx and review of laboratory resultsAbnoalPioneer Community Hospital of PatrickInterpretation and review of laboratory resultsAbnormSentara Williamsburg Regional Medical CenterC Glucose Fingerstickon 42-22-3583Hkxtwrq [Mass/Vol]189 mg/pYDxsc49 - 105 mg/dLBon [facility] HospitalInterpretation and review of laboratory resultsAbnormJohn Randolph Medical CenterPOCT Glucoseon 87-01-9712Ywxtgbp [Mass/Vol]148 mg/fCMlgi15 - 100 mg/dLBon [facility] CenterCT urea (BUN)on 62-27-2285Akgp nitrogen [Mass/Vol]33 mg/dL High8 - 26 mg/dLBon [facility] HospitalPOTASSIUM (POC)on 11-65-3599Mmklwldzs [Moles/Vol]4.9 mmol/LHigh3.5 - 4.5 mmol/LBon [facility] HospitalPREVIOUS SPECIMENon 95-60-3151Rgt [facility] HospitalPlatelet Counton 09-10-2025 Platelets (Bld) [#/Vol]184 10*3/uLBon [facility] HospitalPlatelets (Bld) [#/Vol]184 10*3/bRTxyoku600-281RylccKettering Health Behavioral Medical CenterComment on above:Performed By: #### PLT #### [facility] [address] [place], [place] [id number] Raise Drill Operator: Katlin Lagunasium (POC)on 39-65-5309Vrcqsixhk [Moles/Vol]4.9 mmol/LHigh3.5-4.5K[facility] Behavioral Medical CenterRetic Counton 26-66-4611Ryidjfgx Retic0.113 M/uLHigh0.030-0.080K[facility] Behavioral Medical CenterComment on above:Performed By: #### AHBFR ####[facility] [address] [place] [address] Lab Director: Raymond Cavazos MD#### MONTSERRAT, CDP ####[facility] [address] [place], [place] [id number] Lab Director: Haja Franz MDIRF17.1 %Normal2.7-18.3Mholzer medical center [facility] jack[facility]y Orchard HospitalComment on above:Performed By: #### AHBFR ####[facility] [address] [place], [place] [id number] Lab Director: Raymond Cavazos MD#### MONTSERRAT, CDP ####[facility] [address] [place] [id number] Lab Director: JOSE Lagunasetic Count2.6 %High0.5-1.9K[facility] Behavioral Medical CenterComment on above:Performed By: #### AHBFR ####[facility] [address] [place] [address] Lab Director: Raymond Cavazos MD#### MONTSERRAT, CDP ####[facility] [address] [place] [address] [phone] Director: JOSE Lagunasetic Wcqhoopnqp75.6 plQbszub09.2-35.7K[facility] Behavior[facility] Medical CenterComment on above:Performed By: #### AHBFR ####[facility] [address] [place] [address] [id number] Lab Director: Raymond Cavazos MD#### MONTSERRAT, CDP ####[facility] [address] [place] [address] [phone] Lab Director: JOSE Lagunaseticulocyteson 09-10-2025 Immature reticulocytes/Total reticulocytes (Bld)17.1 %2.7 - 18.3 %MaryJane [employer] SecVires Aeronauticsy HealthInterpretation and review of laboratory resultsAbnormalBon SecVires Aeronauticsy HealthRetic Jqfluxpwss85.6 pg28.2 - 35.7 pgBon [facility] Reticulocytes (Bld) [#/Vol]0.113 10*3/uLHighBon [facility] Reticulocytes/100 RBC (Bld)2.6 %High0.5 - 1.9 %[facility] HealthBon [facility]ours [facility] HealthSODIUM (POC)on 36-18-1874Lvihhc [Moles/Vol]144 mmol/L138 - 146 mmol/LBon [facility] HealthSodium (POC)on 95-63-7485Lbvlqk [Moles/Vol]144 mmol/GVwxepw890-683DwrxaFresno Surgical HospitalUrinalysis, Routineon 20-14-6526Tabwgzdoh, SemiQt,UrNegativeNormalNEGKettering Health Behavioral Medical Center Comment on above:Performed By: #### PLT #### [facility] [address] [place] [address] Raise Drill Operator: Jovanny Lagunasood, UrineMODERATEAbnormalNEGKettering Health Behavioral Medical CenterComment on above:Performed By: #### PLT #### [facility] [address] [place] [address] Raise Drill Operator: BOSSMAN Lagunaslarity (U)CloudyAbnormalCLEARMercSan Francisco Marine HospitalComment on above:Performed By: #### PLT #### [facility] [address] [place] [address] Raise Drill Operator: BOSSMAN Lagunasolor (U)YellowNormalYELMerFresno Surgical HospitalComment on above:Performed By: #### PLT #### [facility] [address] [place] [address] Raise Drill Operator: Haja Franz MDGlucose Ql (U)3+ mg/dLAbnormalNEGKettering Health Behavioral Medical CenterComment on above:Performed By: #### PLT #### [facility] [address] [place] [address] Raise Drill Operator: Haja Franz MDKetones Ql (U)NegativeNormalNEGMerFresno Surgical HospitalComment on above:Performed By: #### PLT #### [facility] [address] [place] [address] Raise Drill Operator: Haja Franz MDLeukocyte esterase Test strip Ql (U)MODERATE AbnormalNEGMercy Normandy Park Medical CenterComment on above:Performed By: #### PLT #### [facility] [address] [place] [address] Raise Drill Operator: Haja Franz MDNitrite,UrNegativeNormalNEGKettering Health Behavioral Medical CenterComment on above:Performed By: #### PLT #### [facility] [address] [place] [address] Raise Drill Operator: MARIA ALEJANDRA Lagunas,Ur5.8Pvwvtf3.0-8.0K[facility] Medical CenterComment on above:Performed By: #### PLT #### [facility] [address] [place] [address] Raise Drill Operator: Conrado Lagunas Ql (U)2+ mg/dLAbnormalNEGKettering Health Behavioral Medical CenterComment on above:Performed By: #### PLT #### [facility] [address] [place] [address] Raise Drill Operator: JOSEPHINE Lagunaspec. [place],Ur1.846Kgjomd8.003-1.030K[facility] Medical CenterComment on above:Performed By: #### PLT #### [facility] [address] [place] [address] Raise Drill Operator: Fredo Lagunasbilinogen,UrNormalNormal0.0-1.0[facility] Medical CenterComment on above:Performed By: #### PLT #### [facility] [address] [place] [address] Raise Drill Operator: Haja Franz MDUrinalysis,Microon 73-68-5080FjbuxdxsOOBL AbnormalNONEMercSan Francisco Marine HospitalComment on above:Performed By: #### UMBELINDAO, UA ####[facility] [address] [place] [address] Lab Director: BOSSMAN Lagunasasts3 to 3Jkuomn2-2Qarwo [facility] Comment on above:Performed By: ###ELIZABETH COLEMAN ####[facility] [address] [place] [address] LabDirector: Haja Franz MDEpithelial cells LM Ql (Urine sed)0 TO 6Kyxjuk4-1NxppfKettering Health Behavioral Medical CenterComment on above:Performed By: ###ELIZABETH COLEMAN ####[facility] [address] [place] [address] LabDirector: Haja Franz MDUrine RBC's0 TO 4CkssnfK12 [facility] Medical CenterComment on above:Performed By: ###ELIZABETH COLEMAN ####[facility] [address] [place] [address] LabDirector: Jaz Lagunas WBC'sTOO NUMEROUS TO EPKSASfuhphevJ62BcqhqKettering Health Behavioral Medical CenterComment on above:Performed By: ###ELIZABETH COLEMAN ####[facility] [address] [place] [address] LabDirector: DIANA LagunasA CORON EJECT FRAC WALL MOTIONon 91-67-6094PHF CORON EJECT FRAC WALL MOTIONEXAMINATION: CTA OF THE CORONARY ARTERIES WITH CALCIUM [...] origin results in less than 50% stenosis. Large amount of calcified plaque mainly in the middle segment. Due to severity of the calcifications, the vessel lumen is obscured by blooming artifact. Suspect hemodynamically significant stenosis but difficult to quantify severity due to large amount of calcified plaque.. Left circumflex: Extensive stenting. Decreased enhancement within stent a min. RCA: Tandem stents in the middle segment. Satisfactory enhancement distal to the stent. Decrease enhancement with stent lumen. Cardiac findings: Cardiac size normal. No pericardial effusion. Normal enhancement of the atrial appendage. Right superior pulmonary vein: Ostium 16 x 14mm. Trunk length 21mm. Right inferior pulmonary vein: Ftqhoq47 x 22mm. Trunk length 12 mm. Left superior pulmonary vein: Nmhngb26 x 19mm. Trunk length 22 mm. Left inferior pulmonary vein: Uzzcll34 x 12mm. Trunk length 14 mm. LVEF 77% Non-cardiac findings: No acute process. No suspicious mass. CALCIUM SCORE INTERPRETATION: 0 No identifiable atherosclerotic plaque. Very low cardiovascular disease risk. Less than 5% chance of presence of coronary artery disease. A negative examination. 1-10 Minimal plaque burden. Significant coronary artery disease very unlikely. 11-100 Mild plaque burden. Likely mild or minimal coronary stenosis. 101-400 Moderate plaque burden. Moderate non-obstructive coronary artery disease highly likely. Over 400 Extensive plaque burden. High likelihood of at least one significant coronary artery stenosis (>50% diameter). CALCIUM SCORING OVERVIEW: Coronary calcium is a marker for plaque in a blood vessel or atherosclerosis (hardening of the arteries). The presence and amount of calcium detected in the coronary artery by the CT scan estimates the presence and amount of atherosclerotic plaque. These calcium deposits can appear years before the development of heart disease symptoms such as chest pain and shortness of breath. A calcium score is computed for each of the coronary arteries based upon the volume and density of the calcium deposits. This can be referred to as your calcified plaque burden. It does not correspond directly to the percentage of narrowing in the artery, but does correlate with the severity of the overall coronary atherosclerotic burden. This score is then used to determine the calcium percentile which compares your calcified plaque burden to that of other asymptomatic men and women of the same age. The calcium score, in combination with the percentile, [...] the 90th percentile for the patient's age. Interpreted by: Star Roberts MD Signed by: Star Roberts MD 08/19/25 Final resultNormalMerFresno Surgical Hospital1. Pulmonary vein measurements as above. 2. Large amount of calcified plaque in the LAD. Suspect hemodynamically significant stenosis but difficult to quantify severity due to large amount of calcified plaque. 3. Extensive stenting of the left circumflex and right coronary artery. Decreased enhancement within the stents. 4. Total calcium score of 649 places patient in the 90th percentile for the patient's age. [email or web address]] RIS CONSOLIDATEDEXAMINATION: CTA OF THE CORONARY ARTERIES WITH CALCIUM [...] origin results in less than 50% stenosis. Large amount of calcified plaque mainly in the middle segment. Due to severity of the calcifications, the vessel lumen is obscured by blooming artifact. Suspect hemodynamically significant stenosis but difficult to quantify severity due to large amount of calcified plaque.. Left circumflex: Extensive stenting. Decreased enhancement within stent a min. RCA: Tandem stents in the middle segment. Satisfactory enhancement distal to the stent. Decrease enhancement with stent lumen. Cardiac findings: Cardiac size normal. No pericardial effusion. Normal enhancement of the atrial appendage. Right superior pulmonary vein: Ostium 16 x 14mm. Trunk length 21mm. Right inferior pulmonary vein: Fmzfeq57 x 22mm. Trunk length 12 mm. Left superior pulmonary vein: Obrxrb45 x 19mm. Trunk length 22 mm. Left inferior pulmonary vein: Slpckj96 x 12mm. Trunk length 14 mm. LVEF 77% Non-cardiac findings: No acute process. No suspicious mass. CALCIUM SCORE INTERPRETATION: 0 No identifiable atherosclerotic plaque. Very low cardiovascular disease risk. Less than 5% chance of presence of coronary artery disease. A negative examination. 1-10 Minimal plaque burden. Significant coronary artery disease very unlikely. 11-100 Mild plaque burden. Likely mild or minimal coronary stenosis. 101-400 Moderate plaque burden. Moderate non-obstructive coronary artery disease highly likely. Over 400 Extensive plaque burden. High likelihood of at least one significant coronary artery stenosis (>50% diameter). CALCIUM SCORING OVERVIEW: Coronary calcium is a marker for plaque in a blood vessel or atherosclerosis (hardening of the arteries). The presence and amount of calcium detected in the coronary artery by the CT scan estimates the presence and amount of atherosclerotic plaque. These calcium deposits can appear years before the development of heart disease symptoms such as chest pain and shortness of breath. A calcium score is computed for each of the coronary arteries based upon the volume and density of the calcium deposits. This can be referred to as your calcified plaque burden. It does not correspond directly to the percentage of narrowing in the artery, but does correlate with the severity of the overall coronary atherosclerotic burden. This score is then used to determine the calcium percentile which compares your calcified plaque burden to that of other asymptomatic men and women of the same age. The calcium score, in combination with the percentile, [...] coronary event increases with increasing calcium percentiles. Star Marcelo MD - 08/19/2025 EXAMINATION: CTA OF THE [...] origin results in less than 50% stenosis. Large amount of calcified plaque mainly in the middle segment. Due to severity of the calcifications, the vessel lumen is obscured by blooming artifact. Suspect hemodynamically significant stenosis but difficult to quantify severity due to large amount of calcified plaque.. Left circumflex: Extensive stenting. Decreased enhancement within stent a min. RCA: Tandem stents in the middle segment. Satisfactory enhancement distal to the stent. Decrease enhancement with stent lumen. Cardiac findings: Cardiac size normal. No pericardial effusion. Normal enhancement of the atrial appendage. Right superior pulmonary vein: Ostium 16 x 14mm. Trunk length 21mm. Right inferior pulmonary vein: Sqoxeb39 x 22mm. Trunk length 12 mm. Left superior pulmonary vein: Viocij39 x 19mm. Trunk length 22 mm. Left inferior pulmonary vein: Hdvvro32 x 12mm. Trunk length 14 mm. LVEF 77% Non-cardiac findings: No acute process. No suspicious mass. CALCIUM SCORE INTERPRETATION: 0 No identifiable atherosclerotic plaque. Very low cardiovascular disease risk. Less than 5% chance of presence of coronary artery disease. A negative examination. 1-10 Minimal plaque burden. Significant coronary artery disease very unlikely. 11-100 Mild plaque burden. Likely mild or minimal coronary stenosis. 101-400 Moderate plaque burden. Moderate non-obstructive coronary artery disease highly likely. Over 400 Extensive plaque burden. High likelihood of at least one significant coronary artery stenosis (>50% diameter). CALCIUM SCORING OVERVIEW: Coronary calcium is a marker for plaque in a blood vessel or atherosclerosis (hardening of the arteries). The presence and amount of calcium detected in the coronary artery by the CT scan estimates the presence and amount of atherosclerotic plaque. These calcium deposits can appear years before the development of heart disease symptoms such as chest pain and shortness of breath. A calcium score is computed for each of the coronary arteries based upon the volume and density of the calcium deposits. This can be referred to as your calcified plaque burden. It does not correspond directly to the percentage of narrowing in the artery, but does correlate with the severity of the overall coronary atherosclerotic burden. This score is then used to determine the calcium percentile which compares your calcified plaque burden to that of other asymptomatic men and women of the same age. The calcium score, in combination with the percentile, [...] of 649 places patient in the 90th p (more content not included)...Bon PapriikaCTA CORON EJECT FRAC WALL MOTIONOrdered By: Star Roberts on 77-86-9851Ksq [facility] Work Phone: CTA CORON EJECT FRAC WALL MOTIONon 13-51-5056Kuyponcjs Study observation (narrative)[facility] PapriikaCreatinine W/GFR Point of Careon 07-18-5295Dorizjlvgh [Mass/Vol]1.6 mg/dLHigh0.51 - 1.19 mg/dLBon PapriikaeGFR, ANG73Fwv- PINFBon Phoenix Memorial HospitalSaviokeComment on above: These results are not intended for use [...] following therapy that affects renal tubular secretion. Interpretation and review of laboratory resultsAbnormalBon Papriika [facility] PapriikaCreatinine w/GFR, POCon 55-70-1000Nnylzrvybx [Mass/Vol] 1.6 mg/dLHigh0.51-1.19[facility] Medical CenterGFR/1.73 sq M.predicted among non-blacks MDRD (S/P/Bld) [Vol rate/Area]37 mL/min/{1.73_m2}Low>60MerFresno Surgical HospitalComment on above:Result Comment: These results are not intended for [...] or following therapy that affects renal tubular secretion.Rambo 06-08-2025 Specimen: [id number] Received: 06/09/25 Status: FANNIE Best Num: [id number] Spec Type: Surgical Subm Dr: Rojelio Rojas MD Tissues: A Skin-Other than Cyst, tag, debridement or plastic repair (R MEDICAL CANTHUS) B Skin-Other than Cyst, tag, debridement or plastic repair (R CHEEK) C Skin-Other than Cyst, tag, debridement or plastic repair (R DORSAL FOREARM) Procedures: HE/Getachew, Isis/Tavo L4/3 Age/ Patient Sex Location Account Attending Physician Dorothy Faria 60/F [place] [id number] Rojelio Rojas MD SPEC NUM: [id number] RECD: 06/09/25 STATUS: FANNIE BEST NUM: [id number] MARICHUY: 06/08/[address]: Rojelio Rojas MD ENTERED: 06/09/[address] [facility] [address]: SPEC TYPE: Surgical DEPT: S ENTERED BY: [id number] RECV BY: [id number] ORDERED: HE/6, Gross/Micro L4/3 ORDERED: HE/6, Gross/Micro L4/3 Pathological Diagnosis A. Right medial canthus: ? Basal cell carcinoma, nodular type. ? The carcinoma is transected at the deep and peripheral margins (incompletely excised). B. Right cheek: ? Squamous cell carcinoma, well-differentiated, ulcerated and crusted ? The carcinoma is transected at the deep margin of the biopsy (incompletely excised). C. Right dorsal forearm: ? Consistent with verruca, see comment ? Tiny epidermoid cyst and dermal solar elastosis are noted ? The lesion is transected at the deep margin of the biopsy Clinical Information D49.2 Neoplasm of unspecified behavior of bone, soft tissue and skin-nonhealing lesions Gross Description Part A is received in formalin labeled with the patients name, date of , and R medial canthus is a perdomo-biswas, wrinkled ovoid shave of skin, 1 x 0.8 x 0.2 cm. The specimen is inked black, serially sectioned, and entirely submitted in a single cassette. (1, ns, [id number] [id number] A) FLAKO Specimen: [id number] Received: 06/09/25 Status: FANNIE Best Num: [id number] Spec Type: Surgical Subm Dr: Rojelio Rojas MD Tissues: A Skin-Other than Cyst, tag, debridement or plastic repair (R MEDICAL CANTHUS) B Skin-Other than Cyst, tag, debridement or plastic repair (R CHEEK) C Skin-Other than Cyst, tag, debridement or plastic repair (R DORSAL FOREARM) Procedures: Isis/Micro L4/3 Patient: Dorothy Faria [id number] (Continued) Specimen: [id number] Received: 06/09/25 (Continued) Gross Description (Continued) Signed (signature on file) Shaun Padilla MD 06/11/25 0852 Specimen: [id number] Received: 06/09/25 Status: FANNIE Best Num: [id number] Spec Type: Surgical Subm Dr: Rojelio Rojas MD Tissues: A Skin-Other than Cyst, tag, debridement or plastic repair (R MEDICAL CANTHUS) B Skin-Other than Cyst, tag, debridement or plastic repair (R CHEEK) C Skin-Other than Cyst, tag, debridement or plastic repair (R DORSAL FOREARM) Procedures: Isis/Micro L4/3 Patient: Dorothy Faria [id number] (Continued) Specimen: [id number] Received: 06/09/25 (Continued) Gross Description (Continued) Part B is received in formalin labeled with the patients name, date of , and R cheek is a perdomo-biswas, wrinkled, ovoid shave of skin, 1.2 x 0.8 x 0.2 cm. The specimen is inked black at the apparent point of attachment, serially sectioned, and entirely submitted in a single cassette. (1, ns, [id number] B) Part C is received in formalin labeled with the patients name, date of , and R dorsal forearm is a perdomo-biswas, crusted and wrinkled ovoid shave of skin, 1.6 x 1.2 x 0.3 cm. The specimen is inked black, serially sectioned, and entirely submitted in a single cassette. (1, ns, [id number] C) CPT Codes 68565 x 3 Specimen: [id number] Received: 06/09/25 Status: FANNIE Best Num: [id number] Spec Type: Surgical Subm Dr: Rojelio Miles (more content not included)... [facility] Physician [facility] CenterVascular duplex carotid bilateralOrdered By: Maria Luisa García on 14-61-3384Yluy CCA dist EDV23.2 cm/s[facility] [facility] Work Phone: Left CCA dist PSV90.5 cm/s[facility] Work Phone: [phone] CCA mid EDV16.69 cm/s[facility] Work Phone: [phone] CCA mid PSV73.64 cm/s[facility] Work Phone: [phone] CCA prox EDV30.5 cm/s[facility] Work Phone: Left CCA prox PNX366.5 cm/s[facility] Work Phone: [phone] ECA EDV38.46 cm/s[facility] Work Phone: [phone] ECA MZJ466 cm/s[facility] Work Phone: [phone] ICA dist EDV30.9 cm/s[facility] Work Phone: [phone] ICA dist PSV81.4 cm/s[facility] Work Phone: Left ICA mid EDV20.6 cm/s[facility] Work Phone: [phone] ICA mid PSV71 cm/s[facility] Work Phone: Left ICA prox EDV29.4 cm/s[facility] Work Phone: Left ICA prox LCZ518.1 cm/s[facility] Work Phone: Left ICA/CCA PSV1.26no unitsBon Secours [facility] Work Phone: Left vertebral EDV14.16 cm/s[facility] Work Phone: Left vertebral PSV43.4 cm/s[facility] Work Phone: Right CCA dist EDV29.9 cm/s[facility] Work Phone: Right cca dist PSV67.7 cm/s[facility] Work Phone: Right CCA mid EDV24.65 cm/s[facility] Work Phone: Right CCA mid PSV85.94 cm/s[facility] Work Phone: Right CCA prox EDV20.7 cm/s[facility] Work Phone: Right CCA prox PSV85.9 cm/s[facility] Work Phone: Right ECA EDV43.91 cm/s[facility] Work Phone: Right ECA CXE144.7 cm/s[facility] Work Phone: Right ICA dist EDV27.3 cm/s[facility] Work Phone: Right ICA dist PSV86.7 cm/s[facility] Work Phone: Right ICA mid EDV22.7 cm/s[facility] Work Phone: Right ICA mid PSV74.5 cm/s[facility] Work Phone: Right ICA prox EDV43.9 cm/s[facility] Work Phone: Right ICA prox YBN448.8 cm/sBon [facility] Work Phone: Right ICA/CCA PSV2.1no unitsBon Sec[facility] Work Phone: Right vertebral EDV13.38 cm/sBon Sec[facility] Work Phone: [phone] vertebral PSV43.5 cm/sBon [facility] Work Phone: Bon [facility] Work Phone: Vascular duplex carotid bilateralon 05-25-2025 Bilateral: There is plaque at the level of the carotid bifurcation with a velocity profile at the origin of the internal carotid artery consistent with no significant stenosis. The vertebral artery is patent with antegrade flow. Right Carotid Right carotid artery stent (CCA extending into the ICA) present, with stent patent. Common Carotid Artery: Patent. Internal Carotid Artery: Mild (<50%) stenosis. External Carotid Artery: Patent. Vertebral Artery: Flow is antegrade. Left Carotid Common Carotid Artery: Patent. Carotid Bulb: Heterogeneous plaque. Internal Carotid Artery: Minimal stenosis. External Carotid Artery: Patent. Vertebral Artery: Flow is antegrade.[facility] CV CPACSRadiology Study observation (narrative)Bon PapriikaVascular duplex carotid bilateralOrdered By: Abdirizak Dejesus on 67-70-5667Yyit bulb EDV24.1 cm/sBON Colibri Heart Valve Work Phone: Left bulb PSV88.7 cm/sBON [facility] Work Phone: Left CCA dist EDV18.0 cm/s[facility] Work Phone: Left CCA dist PSV72.3 cm/s[facility] Work Phone: Left CCA mid EDV28.92 cm/s[facility] Work Phone: Left CCA mid MAF044.61 cm/s[facility] Work Phone: Left CCA prox EDV25.7 cm/s[facility] Work Phone: Left CCA prox DWX442.6 cm/s[facility] Work Phone: Left ECA EDV8.08 cm/s[facility] Work Phone: Left ECA RQW978.8 cm/s[facility] Work Phone: Left ICA dist EDV30.5 cm/s[facility] Work Phone: Left ICA dist PSV95.2 cm/s[facility] Work Phone: Left ICA mid EDV23.2 cm/s[facility] Work Phone: Left ICA mid PSV68.5 cm/s[facility] Work Phone: Left ICA prox EDV17.5 cm/s[facility] Work Phone: [phone] ICA prox PSV92.5 cm/s[facility] Work Phone: Left ICA/CCA PSV1.32no units[facility] Work Phone: Left vertebral EDV13.87 cm/s[facility] Work Phone: Left vertebral PSV40.9 cm/s[facility] Work Phone: [phone] bulb EDV27.4 cm/s[facility] Work Phone: Right bulb QLX902.9 cm/s[facility] Work Phone: Right CCA dist EDV22.0 cm/s[facility] Work Phone: Right cca dist PSV70.3 cm/s[facility] Work Phone: Right CCA mid EDV23.34 cm/s[facility] Work Phone: Right CCA mid PSV72.90 cm/s[facility] Work Phone: [phone] CCA prox EDV19.4 cm/s[facility] Work Phone: Right CCA prox PSV69.0 cm/s[facility] Work Phone: Right Dist Outflow EDV34.6 cm/s[facility] Work Phone: [phone] Dist Outflow WDQ821.1 cm/s[facility] Work Phone: Right ECA EDV15.57 cm/s[facility] Work Phone: Right ECA MAF710.9 cm/s[facility] Work Phone: Right Graft 1CCA/ICA [facility] Work Phone: Right ICA dist EDV23.2 cm/[facility] Work Phone: [phone] ICA dist PSV73.7 cm/s[facility] Work Phone: Right ICA mid EDV19.2 cm/s[facility] Work Phone: Right ICA mid PSV82.2 cm/s[facility] Work Phone: [phone] ICA prox EDV19.5 cm/s[facility] Work Phone: Right ICA prox PSV98.4 cm/s[facility] Work Phone: Right ICA/CCA PSV1.9no [facility] Work Phone: Right Inflow Artery EDV24.5 cm/s[facility] Work Phone: Right Inflow Artery PSV77.5 cm/s[facility] Work Phone: Right Mid Outflow EDV41.7 cm/s[facility] Work Phone: Right Mid Outflow FIE249.2 cm/s[facility] Work Phone: Right Outflow Vessel EDV27.6 cm/s[facility] Work Phone: Right Outflow Vessel JHE899.5 cm/s[facility] Work Phone: Right Prox Outflow EDV24.5 cm/s[facility] Work Phone: Right Prox Outflow PSV69.7 cm/s[facility] Work Phone: Right vertebral EDV16.70 cm/s[facility] Work Phone: Right vertebral PSV62.0 cm/s[facility] Work Phone: [facility] Work Phone: Vascular duplex carotid bilateralon 81-16-8847Erwm (<50%) stenosis in the bilateral internal carotid [...] hemodynamically significant stenosis. Vertebral Artery: Flow is antegrade.[facility] CV CPACSVascular duplex carotid bilateralon 93-33-4955Wbofqtxdb Study observation (narrative)[facility]ITALLingoda30on [id number] patient is Moderately Stable - Low risk [...] are monitored and maintained or improved Outcome: ProgressingNormalUniversLima Memorial HospitalB-TYPE NATRIURETIC PEPTIDEon 23-22-1418Ztnegmykafb peptide B (Bld) [Mass/Vol]83 pg/mLNormal0-100 [facility] HospitalComment on above:Performed By: #### [id number] #### [facility] (BEAKER) [address] [place], [place] [address]ZZso [id number] Attestation signed by Trey Euceda MD at 04/25/2024 1:25 PM I did not personally examine the patient. I discussed the case with the resident/fellow Dr. Mckeon. Teaching Physician's Revisions: none Admission Admitted 04/24/2024 for Carotid stenosis, asymptomatic, [...] is performed under the ED CLIA certificate #[id number]. POCT GLUCOSE METER UNSOLICITED RESULTS - Abnormal Glucose POC 230 (*) Narrative: Waived Testing in the ED is performed under the ED CLIA certificate #[id number]. POCT GLUCOSE METER UNSOLICITED RESULTS - Abnormal Glucose POC 129 (*) Narrative: Waived Testing in the ED is performed under the ED CLIA certificate #[id number]. B-TYPE NATRIURETIC PEPTIDE - Normal BNP 83 POCT GLUCOSE METER POCT GLUCOSE METER POCT GLUCOSE METER POCT GLUCOSE METER Nutrition Screen Issues Requiring Follow-Up Follow-up with cardiology clinic with Dr. Musa within 1 month Outpatient Follow-Up No future appointments. Test Results Pending At DischargeNormalUniMartins Ferry HospitalPOCT GLUCOSE METER UNSOLICITED RESULTSon 03-76-4107Zvhugxd [Mass/Vol]129 mg/dLHigh 70-105UnACMC Healthcare System GlenbeighComment on above:Order Comment: Waived Testing in the ED is performed under the ED CLIA certificate #[id number].Result Comment: [email or web address] By: #### [id number] #### [facility] (BEAKER) [address] [place], [place] [address]na [id number] patient is Moderately Stable - Low risk of patient condition declining or worsening The patient's goals for the shift include comfort/rest The clinical goals for the shift include VSS Problem: Pain - Adult Goal: Verbalizes/displays adequate comfort level or baseline comfort level Outcome: Progressing Flowsheets (Taken 04/24/2024 2301) Verbalizes/displays adequate comfort level or baseline comfort [...] from fall injury Outcome: Progressing Flowsheets (Taken 04/24/2024 2301) Free from fall injury: Assess patient frequently for physical needs Cash fall precautions as indicated by assessment Instruct [...] are exacerbated and prevent overall improvement and dischargeNormalUniMartins Ferry Hospital30The patient is Moderately Stable - Low risk of patient condition declining or worsening The patient's goals for the shift include comfort and pain control. The clinical goals for the shift include stable hemodynamics and comfort. Over the shift, the patient is making progress towards these goals.Normal [facility] CenterANESon 80-90-8836WMEX Attestation signed by Luna Musa MD at 04/24/2024 8:29 AM f Patient: Dorothy Faria Procedure Information Date/Time: 04/24/24829 Procedure: Carotid angiogram - arch carotid and stent Location: [facility] GEOTHERMAL ELECTRICAL ENGINEER 2 BIPLANE / [facility] VASCULAR [facility] (Cath) Providers: Luna Musa MD Clinical information reviewed: [employer] Physical Exam Airway Mallampati: II Cardiovascular Rhythm: regular Rate: normal Dental Pulmonary - normal exam Abdominal - normal exam Anesthesia Plan ASA 3 other (Conscious sedation) intravenous induction Anesthetic plan and risks discussed with patient. Use of blood products discussed with patient who consented to blood products. Plan discussed with attending. Additional Equipment RequestsNormalUniversity [facility] [id number] Attestation signed by Luna Musa MD at 04/24/2024 8:28 AM g History Of Present Illness Dorothy Faria is a 59 y.o. female with PMH significant for CAD s/p PCI in 2021, DM, HTN, HLD presents today for her scheduled procedure. Patient was recently seen in clinic where she mentioned that she has been feeling fatigued after multiple errands. Legs are swelling more; she usually contacts Dr Benton for med adjustment when that happens. She [...] Back pain, COPD (chronic obstructive pulmonary disease) ([facility]), Diabetes ([facility]), and Tachycardia. Surgical History She has a past surgical history that includes Other surgical history; Lumbar fusion (2001); Cervical spine surgery (2018); section, classic; and [...] and plan to proceed with stenting if needed.NormalUnACMC Healthcare System GlenbeighNURSNOTEon 17-25-2989ARBIYWNL Report given to LEX Smith from Sara BURNETT Any medications or safety alerts were reviewed. Any pending diagnostics and notifications were also reviewed, as well as any safety concerns or issues, abnormal labs, abnormal imagining, and abnormal assessment findings. Questions were answered.NormalUnACMC Healthcare System GlenbeighPOCT GLUCOSE METER UNSOLICITED RESULTSon 35-84-1483Xmwspdc [Mass/Vol]230 mg/sPMspr29-368PhqpkfcndnACMC Healthcare System GlenbeighComment on above:Order Comment: Waived Testing in the ED is performed under the ED CLIA certificate #[id number].Result Comment: [email or web address] Performed By: #### [id number] #### [facility] (BEAKER) [address] [place], [place] [address]Sljksxl [Mass/Vol]204 mg/pAOdhj75-567HzcydplpjuACMC Healthcare System GlenbeighComment on above:Order Comment: Waived Testing in the ED is performed under the ED CLIA certificate #[id number].Result Comment: [email or web address] Performed By: #### [id number] #### [facility] (BEAKER) [address] [place], [place] [address]Enfdyn Onlyon 26-41-3333Izsdaz [id number] Dorothy Faria 1965 F Date Provider Department Center 04/15/2024 [facility] VAS LAB CA HeartVAS No family history on fileNormalUniversity Wright-Patterson Medical CenterNuclear stress test with myocardial perfusionOrdered By: Lazarus Keys on 26-92-2975Swnswqqa Diastolic VD05sbTdAAC [facility] Work Phone: Baseline YH42lrsYWT [facility] Work Phone: [phone] Systolic XU972kmIqMSF [facility] Work Phone: [phone] Stress EF71 %[facility] Work Phone: Recovery Stage 1 BP110/62mmHgBON SECP[facility] Work Phone: [phone] Stage 1 Pitmnvra3shp:secBON [facility] Work Phone: Recovery Stage 1 AY57usbXZQ [facility] Work Phone: Recovery Stage 2 Tygszciq8lcr:secBON [facility] Work Phone: Recovery Stage 2 TZ56ctlHIQ [facility] Work Phone: Recovery Stage 3 BP112/64mmHgBON [facility] Work Phone: Recovery Stage 3 Wplgqptm4opb:secBON [facility] Work Phone: Recovery Stage 3 NC97fdqURR [facility] Work Phone: Recovery Stage 4 BP116/68mmHgBON [facility] Work Phone: Recovery Stage 4 Nhtgvqne9bpc:secBON [facility] Work Phone: Recovery Stage 4 KT96glwZIA [facility] Work Phone: [phone] Diastolic SQ22knUfVOZ [facility] Work Phone: [phone] Peak CA367gbvKMH [facility] Work Phone: Stress Percent HR Qduwtuke66 %[facility] Work Phone: [phone] Rate Pressure Gjwhtrh69088ozo*mmHgBON [facility] Work Phone: Stress Systolic AQ564ftAnGNB [facility] Work Phone: Stress Target UF850gfuGNM [facility] Work Phone: TID1.07[facility] [employer] Work Phone: bon [facility] Work Phone: nuclear stress test with myocardial perfusionon 03-51-9008Oxbgr quality is excellent. ECG: Resting ECG demonstrates [...] using lexiscan. The patient reported dyspnea during thestress test. The patient reached the end of [...] Tomography (SPECT) study utilized tomographic imaging/tomography for thetomographic myocardial perfusion imaging performed during this study. [...] The stress end diastolic cavity size is normal.[facility] CV [facility] STRESS Nuclear stress test with myocardial perfusionon 82-03-9576Faguklcvt Study observation (narrative)[facility] SINUSES WO CONon 72-07-3952CO SINUSES WO CONEXAMINATION: CT SINUSES WO CON HISTORY: Chronic sinusitis COMPARISON: CT [...] to prior study. Electronically authenticated by: LAZARUS PARRA Date: 2023-03-26 14:07[facility] HospitalCT LUNG CANCER SCREENINGon [id number] LUNG CANCER SCREENING EXAMINATION: CT LUNG CANCER [...] coronary artery disease. Electronically authenticated by: LAZARUS PARRA Date: 2023-02-21 09:55[facility] SINUSES WO CONon 09-72-3367UM SINUSES WO CONEXAMINATION: CT SINUSES WO CON HISTORY: Chronic sinusitis COMPARISON: No [...] on chronic sinusitis. Electronically authenticated by: LAZARUS PARRA Date: 2023-02-21 09:39[facility] HospitalANA by IFAon 38-40-1093Pgewtgyhxou Antibodies, IFANegative NormalThe Wilson HealthComment on above:Result Comment: Negative <1:80 Borderline 1:80 Positive >1:80 ICAP nomenclature: AC-0 For more information about Hep-2 cell patterns use ANApatterns.org, the official website for the International Consensus on Antinuclear Antibody (JACQUES) Patterns (ICAP).Performed By: #### CVDTBH #### [facility] [address] [place] [address] Dr. Efrain ZuñigaANTISTREPTOLYSIN O AB (ASO)on 74-81-6716Rwzofpmifowvxrci O Ab 36.5 IU/mLNormal0.0-200.0The Wilson HealthComment on above:Performed By: #### ASOAB #### [facility] [address] [address] [address] Efrain ZuñigaINSULINon 93-65-4340Dyuycrm27.7 uIU/mLNormal2.6-24.9The Wilson HealthComment on above:Performed By: #### POCGLUC #### [facility] [address] [place] [address] Dr. Efrain ZuñigaRHEUMATOID FACTORon 38-35-9151XR Latex Turbid.<10.0Normal<14.0The Wilson HealthComment on above:Performed By: #### RF #### [facility] [address] [place] [address] Dr. Efrain ZuñigaXR SINUSES 3 VIEWS OR GREATERon 35-31-9874DK SINUSES 3 VIEWS OR GREATEREXAMINATION: XR SINUSES 3 VIEWS OR GREATER HISTORY: [...] maxillary acute sinusitis. Electronically authenticated by: LAZARUS PARRA Date: 2023-02-02 06:55NoOhio [facility] AUTO DIFFon 80-10-1602MIEE #0.0 103/ulNormal0.0-0.1The Wilson HealthComment on above:Performed By: #### ASOAB #### [facility] [address] [address] [address] Efrain ZuñigaBasophils/100 WBC (Bld)0.4 %Normal0.2-2.0[facility] Comment on above:Performed By: #### ASOAB #### [facility] [address] [address] [address] Efrain Jaimes #0.1 103/ulNormal0.0-0.7The Wilson HealthComment on above: Performed By: #### ASOAB #### [facility] [address] [address] [address] Efrain Millerosinophils/100 WBC (Bld)1.2 %Normal0.9-7.0The [facility] Comment on above:Performed By: #### ASOAB #### [facility] [address] [address] [address] Efrain Millerrythrocyte distribution width (RBC) [Ratio]14.6 %Dfkrpt69.0-15.0 The Wilson HealthComment on above:Performed By: #### ASOAB #### [facility] [address] [address] [address] Efrain ZuñigaHematocrit (Bld) [Volume fraction]35.9 %Critically low36.0-48.0 The Wilson HealthComment on above:Performed By: #### ASOAB #### [facility] [address] [address] [address] Efrain ZuñigaHemoglobin (Bld) [Mass/Vol]11.9 g/dLCritically low12.0-16.0The Wilson HealthComment on above:Performed By: #### ASOAB #### [facility] [address] [address] [address] Efrain Bernal #0.09 10e3/ulCritically high0.00-0.03The [facility] Comment on above:Performed By: #### ASOAB #### [facility] [address] [place] [address] Dr. Efrain Bernal %0.9 %Critically high0.0-0.5The Wilson HealthComment on above:Performed By: #### ASOAB #### [facility] [address] [place] [address] Dr. Efrain Arteaga #2.7 103/ulNormal1.2-3.8The Wilson HealthComment on above:Performed By: #### ASOAB #### [facility] [address] [place] [address] Dr. Efrain Coolhocytes/100 WBC (Bld)26.3 %Qrozqf13.5-60.0The Wilson HealthComment on above:Performed By: #### ASOAB #### [facility] [address] [place] [address] Dr. Efrain TalleyUAL DIFF REQNONormalThe Wilson HealthComment on above: Performed By: #### ASOAB #### [facility] [address] [place] [address] Dr. Efrain Zhang (RBC) [Entitic mass]29.8 boQsgphd16.7-34.0The Wilson HealthComment on above:Performed By: #### ASOAB #### [facility] [address] [place] [address] Dr. Efrain Cottrell (RBC) [Mass/Vol]33.1 g/dLWypciw79.9-35.2The Wilson HealthComment on above:Performed By: #### ASOAB #### [facility] [address] [place] [address] Dr. Efrain CottrellV (RBC) [Entitic vol]90.0 zAOjtupu68.0-99.0The Wilson HealthComment on above:Performed By: #### ASOAB #### [facility] [address] [place] [address] Dr. Efrain Bobby #0.7 103/ulNormal0.3-0.8The Wilson HealthComment on above:Performed By: #### ASOAB #### [facility] [address] [place] [address] Dr. Efrain Rosenbaumocytes/100 WBC (Bld)6.7 %Normal1.7-12.0The [facility] Comment on above:Performed By: #### ASOAB #### [facility] [address] [place] [address] Dr. Efrain Lugo #6.6 103/ulCritically high1.4-6.5The [facility] Comment on above:Performed By: #### ASOAB #### [facility] [address] [place] [address] Dr. Efrain Garcíautrophils/100 WBC (Bld)64.5 %Qajiyo81.0-75.0The Wilson HealthComment on above:Performed By: #### ASOAB #### [facility] [address] [place] [address] Dr. Efrain Milianlet mean volume (Bld) [Entitic vol]11.3 fLNormal9.5-13.5The Wilson HealthComment on above:Performed By: #### ASOAB #### [facility] [address] [place] [address] Dr. Efrain DuronT190 103/fsSioxmg883-803Gly Wilson HealthComment on above: Performed By: #### ASOAB #### [facility] [address] [place] [address] Dr. Efrain PhilippeC3.99 106/ulCritically low4.20-5.40The Wilson HealthComment on above:Performed By: #### ASOAB #### [facility] [address] [place] [address] Dr. Efrain ZuñigaWBC10.2 103/ulNormal4.0-11.0The Wilson HealthComment on above:Performed By: #### ASOAB #### [facility] [address] [place] [address] Dr. Efrain ZuñigaCRFabiano 39-44-8998IOH [Mass/Vol]mg/LNormal<=1.0The Wilson HealthComment on above:Performed By: #### RF #### [facility] [address] [place] [address] Dr. Efrain ZuñigaFRERICKA THYROXINE INDEX T7on 36-01-2866HHG1.96Gyvdvi4.30-4.50The Wilson HealthComment on above:Performed By: #### RF #### [facility] [address] [place] [address] Dr. Efrain ZuñigaT3U33.0 %Yzmpdw53.0-39.0The Wilson HealthComment on above: Performed By: #### RF #### [facility] [address] [place] [address] Dr. Efrain ZuñigaT4 [Mass/Vol]7.00 ug/dLNormal4.80-13.90The [facility] Comment on above:Performed By: #### RF #### [facility] [address] [place] [address] Dr. Efrain ZuñigaGLYCOHEMOGLOBIN A1Con 04-42-6424JLW RECOMMENDATIONSEE BELOWNormal The Wilson HealthComment on above:Result Comment: ADA RECOMMENDED LIMIT 4.0 - 6.0 ADA THERAPEUTIC TARGET < 7.0 ACTION SUGGESTED > 7.0Performed By: #### POCGLUC #### [facility] [address] [place] [address] Dr. Efrain ZuñigaGlucose [Mass/Vol]186 mg/dLNormalThe Wilson HealthComment on above:Performed By: #### POCGLUC #### [facility] [address] [place] [address] Dr. Efrain ZuñigaHbA1c (Bld) [Mass fraction]8.1 %Critically high4.5-6.2The Wilson HealthComment on above:Performed By: #### POCGLUC #### [facility] [address] [place] [address] Dr. Efrain Parnell 12-36-0488Soic [Mass/Vol]67.0 ug/wNWplfan87.0-170.0The Wilson HealthComment on above:Performed By: #### CVDTBH #### [facility] [address] [place] [address] Dr. Efrain MorrisID PROFILEon 06-54-3714LVZG-HDL RATIO NORMSEE BELOWLicking Memorial HospitalComment on above:Result Comment: 3.3 - 4.4 LOW RISK 4.4 - 7.1 AVERAGE RISK 7.1 - 11.0 MODERATE RISK >11.0 HIGH RISKPerformed By: #### RF #### [facility] [address] [place] [address] Dr. Efrain Buchananesterol [Mass/Vol]104 mg/dLNormal<=200The [facility] Comment on above:Performed By: #### RF #### [facility] [address] [place] [address] Dr. Efrain ZuñigaCholesterol in HDL [Mass/Vol]28 mg/dLCritically fvh71-10Nch Wilson HealthComment on above:Performed By: #### RF #### [facility] [address] [place] [address] Dr. Efrain ZuñigaCholesterol in LDL [Mass/Vol]52.6 mg/dLLicking Memorial HospitalComment on above:Performed By: #### RF #### [facility] [address] [place] [address] Dr. Efrain ZuñigaCholesterol.total/Cholesterol in HDL [Mass ratio]3.7 {ratio} NormalThe Wilson HealthComment on above:Performed By: #### RF #### [facility] [address] [place] [address] Dr. Efrain Craft NORMAL> or = 60 mg/dl - LOW CARDIOVASCULAR RISK <40 mg/dl - HIGH CARDIOVASCULAR RISKLicking Memorial HospitalComment on above:Performed By: #### RF #### [facility] [address] [place] [address] Dr. Efrain Aguilar CALC NORMALSEE BELOWNoOhioHealth Nelsonville Health CenterComment on above:Result Comment: <100 mg/dl OPTIMAL 100 - 129 mg/dl NEAR OR ABOVE OPTIMAL 130 - 159 mg/dl BORDERLINE HIGH 160 - 189 mg/dl HIGH >190 mg/dl VERY HIGH Performed By: #### RF #### [facility] [address] [place] [address] Dr. Efrain ZuñigaTriglyceride [Mass/Vol]117 mg/dLNormal<=150The [facility] Comment on above:Performed By: #### RF #### [facility] [address] [place] [address] Dr. Efrain Hector CALC23.4 mg/dLNoOhioHealth Nelsonville Health CenterComment on above: Performed By: #### RF #### [facility] [address] [place] [address] Dr. Efrain ZuñigaPROF 14(COMP METB)on 94-00-9403Wdaohji [Mass/Vol]3.1 g/dL Critically low3.4-5.0The Wilson HealthComment on above:Performed By: #### CRP, CMP, TSH, T7, LIPID, URIC #### [facility] [address] [place] [address] Dr. Efrain ZuñigaAlbumin/Globulin [Mass ratio]0.9 {ratio}NormalThe Wilson HealthComment on above:Performed By: #### CRP, CMP, TSH, T7, LIPID, URIC #### [facility] [address] [place] [address] Dr. Efrain ZuñigaALP [Catalytic activity/Vol]132 U/LCritically sqjr57-682Rts Wilson HealthComment on above:Performed By: #### CRP, CMP, TSH, T7, LIPID, URIC #### [facility] [address] [place] [address] Dr. Efrain Sweeney [Catalytic activity/Vol]40 U/HDdnlpo10-27Dtq [facility] HealthComment on above:Performed By: #### CRP, CMP, TSH, T7, LIPID, URIC #### [facility] [address] [place] [address] Dr. Efrain Torres gap [Moles/Vol]14.6 mmol/LNormalThe [facility] Comment on above:Performed By: #### CRP, CMP, TSH, T7, LIPID, URIC #### [facility] [address] [place] [address] Dr. Efrain Carter [Catalytic activity/Vol]18 U/ZCtokmo65-85Cbj [facility] HealthComment on above:Performed By: #### CRP, CMP, TSH, T7, LIPID, URIC #### [facility] [address] [place] [address] Dr. Efrain ZuñigaBilirubin [Mass/Vol]0.5 mg/dLNormal0.2-1.0[facility] Comment on above:Performed By: #### CRP, CMP, TSH, T7, LIPID, URIC #### [facility] [address] [place] [address] Dr. Efrain ZuñigaCalcium [Mass/Vol]8.8 mg/dLNormal8.5-10.1[facility] Comment on above:Performed By: #### CRP, CMP, TSH, T7, LIPID, URIC #### [facility] [address] [place] [address] Dr. Efrain ZuñigaChloride [Moles/Vol]106 mmol/LNxtmrp25-548SpeFisher-Titus Medical Center Comment on above:Performed By: #### CRP, CMP, TSH, T7, LIPID, URIC #### [facility] [address] [place] [address] Dr. Efrain ZuñigaCO2 [Moles/Vol]24.2 mmol/VWauhpz02.0-32.0The [facility] Comment on above:Performed By: #### CRP, CMP, TSH, T7, LIPID, URIC #### [facility] [address] [place] [address] Dr. Efrain ZuñigaCreatinine [Mass/Vol]1.08 mg/dLCritically high0.55-1.02The [facility] Cincinnatiment on above:Performed By: #### CRP, CMP, TSH, T7, LIPID, URIC #### [facility] [address] [place] [address] Dr. Efrain MillerGFR-AF SRI LANKAN>60Normal>=60The [facility] [facility] [place] above:Performed By: #### CRP, CMP, TSH, T7, LIPID, URIC #### [facility] [address] [place] [address] Dr. Efrain MillerGFR-NON AF CWXTECWV17 mL/min/1.49r4Iyhctofxtu low>=60The [facility] [place] above:Performed By: #### CRP, CMP, TSH, T7, LIPID, URIC #### [facility] [address] [place] [address] Dr. Efrain ZuñigaGlobulin (S) [Mass/Vol]3.6 g/dLNormalThe [facility] HealthComment on above:Performed By: #### CRP, CMP, TSH, T7, LIPID, URIC #### [facility] [address] [place] [address] Dr. Efrain ZuñigaGlucose [Mass/Vol]184 mg/dLCritically bbaa83-954Xct [facility] on above:Performed By: #### CRP, CMP, TSH, T7, LIPID, URIC #### [facility] [address] [place] [address] Dr. Efrain ZuñigaPotassium [Moles/Vol]4.8 mmol/LNormal3.5-5.1The [facility] Comment on above:Performed By: #### CRP, CMP, TSH, T7, LIPID, URIC #### [facility] [address] [place] [address] Dr. Efrain ZuñigaProtein [Mass/Vol]6.7 g/dLNormal6.4-8.2The [facility] Comment on above:Performed By: #### CRP, CMP, TSH, T7, LIPID, URIC #### [facility] [address] [address] [address] Efrain ZuñigaSodium [Moles/Vol]140 mmol/VLvuygc413-089Uvq [facility] Comment on above:Performed By: #### CRP, CMP, TSH, T7, LIPID, URIC #### [facility] [address] [place] [address] Dr. Efrain ZuñigaUrea nitrogen [Mass/Vol]32.0 mg/dLCritically high7.0-18.0The [facility] HealthComment on above:Performed By: #### CRP, CMP, TSH, T7, LIPID, URIC #### [facility] [address] [place] [address] Dr. Efrain Sarmiento nitrogen/Creatinine [Mass ratio]29.6 mg/mgNormalThe [facility] HealthComment on above:Performed By: #### CRP, CMP, TSH, T7, LIPID, URIC #### [facility] [address] [place] [address] Dr. Efrain Nesbitt 58-25-0144HNS2.495 uIU/mLNormal0.358-3.740The [facility] HealthComment on above:Performed By: #### CRP, CMP, TSH, T7, LIPID, URIC #### [facility] [address] [place] [address] Dr. Efrain ZuñigaURIC ACID SERUMon 40-97-2811Opvcu [Mass/Vol]7.6 mg/dLCritically high2.6-6.0The [facility] HealthComment on above:Performed By: #### RF #### [facility] [address] [place] [address] Dr. Efrain ZuñigaCovid-19 PCR (CVDTB)on 89-82-0785IBBA-CoV-2 (COVID-19) RNA ASHLEIGH+probe Ql (Unsp spec)Not detectedNormalNOT DETECTEDThe [facility] Comment on above:Result Comment: This test is not yet approved or cleared by the [place] FDA. When there are no FDA-approved or cleared tests available, and other criteria are met, FDA can make tests available under an emergency access mechanism called an Emergency Use Authorization (EUA). The EUA for this test is supported by the Technician Support Engineer of Health and Human Service's (HHS's) declaration that circumstances exist to justify the emergency use of in vitro diagnostics for the detection and/or diagnosis of the virus that causes COVID- 19. This EUA will remain in effect (meaning [...] of clinical signs and symptoms consistent with SARS-CoV-2.Performed By: #### CVDTBH #### [address] [address] [address] Efrain Lockett AND B AGon 54-04-6939OJMVJEDBWOPHYWilson Memorial Hospital on above:Result Comment: Negative for Flu A protein angiten. Infection due to Flu A cannot be ruled out. FluA angiten in the sample may be below the detection limit of the test.Performed By: #### ASOAB #### [facility] [address] [place] [address] Dr. Efrain UribeNEGERICKA [facility] on above: Result Comment: Negative for Flu B protein antigen. Infection due to Flu B cannot be ruled out. FluB antigen in the sample may be below the detection limit of the test.Performed By: #### ASOAB #### [facility] [address] [place] [address] Dr. Efrain Lockett AGNegativeNormalNEGATIVE SEE COMMENTThe [facility] on above:Performed By: #### ASOAB #### [facility] [address] [place] [address] Dr. Efrain Burger AGNegativeNormalNEGATIVE SEE COMMENTThe [facility] on above:Performed By: #### ASOAB #### [facility] [address] [place] [address] Dr. Efrain Zuñiga29on [id number] by: POPEYE KAUFFMAN on: 10/11/2022 09:39 AM Modules accepted: Level of ServiceNormalUniMartins Ferry Hospital Consulton [id number] Dorothy Faria 1965 F Date Provider Department Center 10/09/2022 3720-POPEYE KAUFFMAN [facility] SURG Second Fl Chart Close Cosign Accepted by: POPEYE KAUFFMAN[[id number]] Chart Close Cosign Accepted on: SunOct 11, 2022 9:51 AM No family history on file Level of Service:88815 [place] OFFICE CONSULTATION NEW/ESTAB PATIENT 40 MIN Reason [...] she has tried PT, but did not help.NormalUnACMC Healthcare System GlenbeighAmbulatory Visit Summaryon 13-23-6187Ifgrnncjyo Visit Summary DOROTHY FARIA :1965 Visit Date:10/04/2022 Ambulatory Visit Instructions Your Care Team Attending Physician - KOSTA BRIONES, Nathan Gerber Primary Care Physician - Chetan BRIONES, Cary This Is Your Medications List Contact prescribing [...] Tablets By Mouth Every day Contact prescribing physicianif questions or concerns Unchanged duloxetine (duloxetine 60 [...] hemiplegia Smoker SVT (supraventricular tachycardia) Ventral hernia NormalAultman HospitalGeneral Surgery Office/Clinic Noteon 38-16-0303Beknmpy Surgery Office/Clinic NoteChief Complaint in-office excisional biopsy HPI Staff Presents [...] swallowing difficulties, no hearing loss, no ear infection(s),no nose bleeds. Cardiovascular: normal blood pressure, no [...] keratoses, no raised area, no pigmentation changers; multiplesimilar areas on extremities Assessment/Plan 1. Senile solar [...] Years. Yes, 09/01/2022 Family History [facility]:Result Comment: Electronically Signed By: KOSTA BRIONES, Nathan Harvey\Date and Time Signed: 10/04/22 17:30 ESTFacesheeton 72-40-3269Ufohnqljn [id number]#1.00CD:[address] [place], [place] [address]MRI LSPINE WO CONon 36-24-4351JLF [facility] WO CONEXAMINATION: MRI [facility] WO CON HISTORY: Nerve root disorder COMPARISON: [...] authenticated by: MARIA LUISA RAMIREZ Date: 2022-08-28 08:[address] [place], [place] [address]Physician Referralon 08-63-3586Uviagigea Referral [id number]#1.00CD:[address] [place], [place] [address]Physician Referralon 10-58-7438Kvjjwfibk Referral [id number]#1.00CD:[address] [place], [place] [address]Activated clotting timeon 64-76-8293Dcgijlfcz Clotting Meuq759OonnKCPUVA Health University HospitalInterpretation and review of laboratory resultsAbnoHenrico Doctors' [facility] HEALTHCHLORIDE (POC)on 58-58-0457Uudgyqwl [Moles/Vol]102 mmol/L98 - 107 mmol/LBON [facility] HOSPITALCatheterization and angiography procedure details panelon 04-38-7039LAL [facility] Work Phone: creatinine W/GFR Point of Careon 18-14-8016Fkrlrzuyqm [Mass/Vol]0.77 mg/dL0.51 - 1.19 mg/dLBON [facility]ILLCRE[facility] HOSPITALGFR Non->60>60 mL/minHOSPITAL CORPORATION OF AMERICAGFR/1.73 sq M.predicted MDRD (S/P/Bld) [Vol rate/Area]mL/min/{1.73_m2}>60 mL/minHOSPITAL CORPORATION OF AMERICA GFR/1.73 sq M.predicted MDRD (S/P/Bld) [Vol rate/Area][facility] Comment on above:Average GFR for 50-59 years old: 93 mL/min/1.73sq m Chronic Kidney Disease: <60 mL/min/1.73sq m Kidney failure: <15 mL/min/1.73sq m eGFR calculated using average adult body mass. Additional eGFR calculator available at: http://www.[employer]/multiple_crcl_2012.htm Hemoglobin and hematocrit, bloodon 93-90-5315Ndpzuaobge (Bld) [Volume fraction] 44 %36 - 46 %HOSPITAL CORPORATION OF AMERICAHemoglobin (Bld) [Mass/Vol]14.9 g/dL12.0 - 16.0 g/dLBON [facility] HOSPITALNo Panel Informationon 90-52-0985Mdjulapioekjrk and review of laboratory resultsAbnormalBON WIN[facility] HEALTHCARE CENTERPOCT Glucoseon 79-70-2418Xulpcez [Mass/Vol]314 mg/mSBkes12 - 100 mg/dLBON MER[facility] FAIRFIELD HOSPITALCT urea (BUN)on 06-16-2366Krtu nitrogen [Mass/Vol]14 mg/dL8 - 26 mg/dLBON [facility]ILLCREST HOSPITALPOTASSIUM (POC)on 19-50-4312Kdqnnusvn [Moles/Vol]4.4 mmol/L3.5 - 4.5 mmol/LBON [facility] HOSPITALPlatelet Counton 17-42-6077Foxombzci (Bld) [#/Vol]206 10*3/uLBON WIN[facility] REGION[facility] HEALTHCARE CENTERSODIUM (POC)on 12-96-1477Ftupuz [Moles/Vol] 136 mmol/MGmp677 - 146 mmol/LBON [facility] HOSPITALCBC AUTO DIFFon 04-28-2022 BASO #0.1 103/ulNormal0.0-0.1The [facility] HealthComment on above:Performed By: #### POCGLUC #### [facility] [address] [place] [address] Dr. Efrain ZuñigaBasophils/100 WBC (Bld)0.6 %Normal0.2-2.0[facility] Comment on above:Performed By: #### POCGLUC #### [facility] [address] [place] [address] Dr. Efrain Jaimes #0.1 103/ulNormal0.0-0.7The [facility] HealthComment on above: Performed By: #### POCGLUC #### [facility] [address] [place] [address] Dr. Efrain Millerosinophils/100 WBC (Bld)1.5 %Normal0.9-7.0[facility] Comment on above:Performed By: #### POCGLUC #### [facility] [address] [place] [address] Dr. Efrain Millerrythrocyte distribution width (RBC) [Ratio]15.1 %Critically high 11.0-15.0The [facility] HealthComment on above:Performed By: #### POCGLUC #### [facility] [address] [place] [address] Dr. Efrain ZuñigaHematocrit (Bld) [Volume fraction]41.3 %Sdzrax13.0-48.0[facility] Medical CenterComment on above:Performed By: #### POCGLUC #### [facility] [address] [place] [address] Dr. Efrain ZuñigaHemoglobin (Bld) [Mass/Vol]13.2 g/zWYlnhnh34.0-16.0[facility] CenterComment on above:Performed By: #### POCGLUC #### [facility] [address] [place] [address] Dr. Efrain Bernal #0.05 10e3/ulCritically high0.00-0.03[facility] Comment on above:Performed By: #### POCGLUC #### [facility] [address] [address] [address] Efrain Bernal %0.6 %Critically high0.0-0.5The [facility] HealthComment on above:Performed By: #### POCGLUC #### [facility] [address] [address] [address] Efrain Aretaga #1.5 103/ulNormal1.2-3.8The [facility] HealthComment on above:Performed By: #### POCGLUC #### [facility] [address] [place] [address] Dr. Efrain Coolhocytes/100 WBC (Bld)17.3 %Critically low20.5-60.0The [facility]Comhar[facility] on above:Performed By: #### POCGLUC #### [facility] [address] [place] [address] Dr. Efrain TalleyUAL DIFF REQNONormalThe [facility] HealthComment on above: Performed By: #### POCGLUC #### [facility] [address] [place] [address] Dr. Efrain Cottrell (RBC) [Entitic mass]29.9 pkFryogs39.7-34.0The [facility]Com[facility] on above:Performed By: #### POCGLUC #### [facility] [address] [place] [address] Dr. Efrain Cottrell (RBC) [Mass/Vol]32.0 g/xDCndexw20.9-35.2The [facility] on above:Performed By: #### POCGLUC #### [facility] [address] [place] [address] Dr. Efrain Cottrell (RBC) [Entitic vol]93.4 nUKwmfol08.0-99.0The [facility] on above:Performed By: #### POCGLUC #### [facility] [address] [place] [address] Dr. Efrain Bobby #0.7 103/ulNormal0.3-0.8The [facility] HospitalComment on above:Performed By: #### POCGLUC #### [facility] [address] [address] [address] Efrain Rosenbaumocytes/100 WBC (Bld)8.0 %Normal1.7-12.0The [facility] on above:Performed By: #### POCGLUC #### [facility] [address] [address] [address] Efrain GarcíaUT #6.4 103/ulNormal1.4-6.5The [facility] HealthComment on above:Performed By: #### POCGLUC #### [facility] [address] [place] [address] Dr. Efrain Garcíautrophils/100 WBC (Bld)72.0 %Vzwkiz00.0-75.0The [facility] HealthComment on above:Performed By: #### POCGLUC #### [facility] [address] [place] [address] Dr. Efrain ZuñigaPlatelet mean volume (Bld) [Entitic vol]11.8 fLNormal9.5-13.5The [facility] HealthComment on above:Performed By: #### POCGLUC #### [facility] [address] [place] [address] Dr. Efrain ZuñigaPLT174 103/ucJupvnz541-294Ptp [facility] HealthComment on above: Performed By: #### POCGLUC #### [facility] [address] [place] [address] Dr. Efrain ZuñigaRBC4.42 106/ulNormal4.20-5.40The [facility] HealthComment on above:Performed By: #### POCGLUC #### [facility] [address] [place] [address] Dr. Efrain ZuñigaWBC8.9 103/ulNormal4.0-11.0The [facility] HealthComment on above: Performed By: #### POCGLUC #### [facility] [address] [place] [address] Dr. Efrain ZuñigaCHATUGE REG[facility] GLUCOSEon 82-56-0902Anwrjeq [Mass/Vol]371 mg/dL Critically vwtp54-450Qjo [facility] HealthComment on above:Performed By: #### POCGLUC #### [facility] [address] [place] [address] Dr. Efrain ZuñigaGlucose [Mass/Vol]214 mg/dLCritically uoqp74-556Vki [facility] HealthComment on above:Performed By: #### POCGLUC #### [facility] [address] [place] [address] Dr. Efrain ZuñigaPROF 14(COMP METB)on 81-64-6396Ibwfaoh [Mass/Vol]2.8 g/dL Critically low3.4-5.0The [facility] HealthComment on above:Performed By: #### RF #### [facility] [address] [place] [address] Dr. Efrain ZuñigaAlbumin/Globulin [Mass ratio]0.8 {ratio}NormalThe [facility] HealthComment on above:Performed By: #### RF #### [facility] [address] [place] [address] Dr. Efrain TaverasP [Catalytic activity/Vol]121 U/LCritically zpnk02-219Frf [facility] HealthComment on above:Performed By: #### RF #### [facility] [address] [place] [address] Dr. Efrain Sweeney [Catalytic activity/Vol]54 U/ABrhwlu33-74Rzr [facility] HealthComment on above:Performed By: #### RF #### [facility] [address] [place] [address] Dr. Efrain Torres gap [Moles/Vol]13.7 mmol/LNormalThe [facility] Comment on above:Performed By: #### RF #### [facility] [address] [place] [address] Dr. Efrain ZuñigaAST [Catalytic activity/Vol]45 U/LCritically angc51-68Oxx [facility] HealthComment on above:Performed By: #### RF #### [facility] [address] [place] [address] Dr. Efrain ZuñigaBilirubin [Mass/Vol]0.9 mg/dLNormal0.2-1.0The [facility] Comment on above:Performed By: #### RF #### [facility] [address] [address] [address] Efrain ZuñigaCalcium [Mass/Vol]8.5 mg/dLNormal8.5-10.1The [facility] Comment on above:Performed By: #### RF #### [facility] [address] [address] [address] Efrain ZuñigaChloride [Moles/Vol]103 mmol/WWgvnfi41-317Vzq [facility] Comment on above:Performed By: #### RF #### [facility] [address] [address] [address] Efrain ZuñigaCO2 [Moles/Vol]26.4 mmol/MSswigo64.0-32.0[facility] Comment on above:Performed By: #### RF #### [facility] [address] [place] [address] Dr. Efrain ZuñigaCreatinine [Mass/Vol]0.94 mg/dLNormal0.55-1.02The [facility] HealthComment on above:Performed By: #### RF #### [facility] [address] [place] [address] Dr. Efrain MillerGFR-AF SRI LANKAN>60Normal>=60The [facility] HealthComment on above:Performed By: #### RF #### [facility] [address] [address] [address] Efrain MillerGFR-NON AF SRI LANKAN>60Normal>=60The [facility] HealthComment on above:Performed By: #### RF #### [facility] [address] [address] [address] Efrain ZuñigaGlobulin (S) [Mass/Vol]3.5 g/dLNormalThe [facility] HealthComment on above:Performed By: #### RF #### [facility] [address] [place] [address] Dr. Efrain ZuñigaGlucose [Mass/Vol]243 mg/dLCritically bfdd97-413Adg [facility] HealthComment on above:Performed By: #### RF #### [facility] [address] [id number] [address] Efrain ZuñigaPotassium [Moles/Vol]4.1 mmol/LNormal3.5-5.1The [facility] Comment on above:Performed By: #### RF #### [facility] [address] [id number] [address] Efrain ZuñigaProtein [Mass/Vol]6.3 g/dLCritically low6.4-8.2The [facility] HealthComment on above:Performed By: #### RF #### [facility] [address] [address] [address] Efrain ZuñigaSodium [Moles/Vol]139 mmol/LEpotil142-217Nxw [facility] Comment on above:Performed By: #### RF #### [facility] [address] [id number] [address] Efrain ZuñigaUrea nitrogen [Mass/Vol]10.0 mg/dLNormal7.0-18.0The [facility] HealthComment on above:Performed By: #### RF #### [facility] [address] [id number] [address] Efrain ZuñigaUrea nitrogen/Creatinine [Mass ratio]10.6 mg/mgNormalThe [facility]Com[facility] on above:Performed By: #### RF #### [facility] [address] [address] [address] Efrain ZuñigaXR ABD FLAT UP_PA Brodie 68-39-7757UJ ABD FLAT UP_PA CHEXAMINATION: XR ABD FLAT UP_PA CH HISTORY: UNSPECIFIED [...] Moderate-large stool burden. Electronically authenticated by: LAZARUS PARRA Date: 2022-04-28 07:14[facility] HospitalXR [facility] FLAT UP_PA CHACUTE ABDOMINAL SERIES HISTORY: Abdominal pain TECHNIQUE: A single view [...] Electronically authenticated by: EMILIANA CURTIS Date: 2022-04-27 22:01[facility] HospitalAMYLASEon 47-31-5550Izuexlc [Catalytic activity/Vol]36 U/L Qigwwq52-320Bol [facility] HealthComment on above:Performed By: #### POCGLUC #### [facility] [address] [place] [address] Dr. Efrain Daigle AUTO DIFFon 91-19-8675FTCY #0.1 103/ulNormal0.0-0.1The [facility] HealthComment on above:Performed By: #### POCGLUC #### [facility] [address] [address] [address] Efrain Rodriguezsophils/100 WBC (Bld)0.8 %Normal0.2-2.0[facility] Comment on above:Performed By: #### POCGLUC #### [facility] [address] [place] [address] Dr. Efrain Jaimes #0.1 103/ulNormal0.0-0.7The [facility] HealthComment on above: Performed By: #### POCGLUC #### [facility] [address] [place] [address] Dr. Efrain Millerosinophils/100 WBC (Bld)0.5 %Critically low0.9-7.0The [facility] HealthComment on above:Performed By: #### POCGLUC #### [facility] [address] [place] [address] Dr. Efrain Millerrythrocyte distribution width (RBC) [Ratio]15.1 %Critically high 11.0-15.0The [facility] HealthComment on above:Performed By: #### POCGLUC #### [facility] [address] [place] [address] Dr. Efrain ZuñigaHematocrit (Bld) [Volume fraction]44.2 %Xolgmf97.0-48.0The [facility] HealthComment on above:Performed By: #### POCGLUC #### [facility] [address] [place] [address] Dr. Efrain ZuñigaHemoglobin (Bld) [Mass/Vol]14.6 g/wRYoyyln99.0-16.0The [facility] HealthComment on above:Performed By: #### POCGLUC #### [facility] [address] [place] [address] Dr. Efrain Bernal #0.09 10e3/ulCritically high0.00-0.03The [facility] Comment on above:Performed By: #### POCGLUC #### [facility] [address] [place] [address] Dr. Efrain Bernal %0.8 %Critically high0.0-0.5The [facility] HealthComment on above:Performed By: #### POCGLUC #### [facility] [address] [place] [address] Dr. Efrain Arteaga #1.6 103/ulNormal1.2-3.8The [facility] HealthComment on above:Performed By: #### POCGLUC #### [facility] [address] [address] [address] Efrain Spearsmphocytes/100 WBC (Bld)14.8 %Critically low20.5-60.0The [facility] HealthComment on above:Performed By: #### POCGLUC #### [facility] [address] [place] [address] Dr. Efrain TalleyUAL DIFF REQNONormalThe [facility] HealthComment on above: Performed By: #### POCGLUC #### [facility] [address] [place] [address] Dr. Efrain Cottrell (RBC) [Entitic mass]30.3 ubQachuk02.7-34.0The [facility] HealthComment on above:Performed By: #### POCGLUC #### [facility] [address] [place] [address] Dr. Efrain Cottrell (RBC) [Mass/Vol]33.0 g/pEArokob02.9-35.2The [facility] HealthComment on above:Performed By: #### POCGLUC #### [facility] [address] [place] [address] Dr. Efrain Cottrell (RBC) [Entitic vol]91.7 jIQyrlaw48.0-99.0[facility] CenterComment on above:Performed By: #### POCGLUC #### [facility] [address] [place] [address] Dr. Efrain Bobby #0.9 103/ulCritically high0.3-0.8ThC[facility] Comment on above:Performed By: #### POCGLUC #### [facility] [address] [place] [address] Dr. Efrain Rosenbaumocytes/100 WBC (Bld)7.8 %Normal1.7-12.0[facility] Comment on above:Performed By: #### POCGLUC #### [facility] [address] [place] [address] Dr. Efrain Lugo #8.2 103/ulCritically high1.4-6.5ThC[facility] Clinic [facility] Hospital Comment on above:Performed By: #### POCGLUC #### [facility] [address] [address] [address] Efrain Garcíautrophils/100 WBC (Bld)75.3 %Critically high43.0-75.0The [facility] HealthComment on above:Performed By: #### POCGLUC #### [facility] [address] [place] [address] Dr. Efrain ZuñigaPlatelet mean volume (Bld) [Entitic vol]11.6 fLNormal9.5-13.5The [facility] HealthComment on above:Performed By: #### POCGLUC #### [facility] [address] [place] [address] Dr. Efrain ZuñigaPLT198 103/koJpsuoj873-382Bfd [facility] on above: Performed By: #### POCGLUC #### [facility] [address] [place] [address] Dr. Efrain ZuñigaRBC4.82 106/ulNormal4.20-5.40The [facility] HealthComment on above:Performed By: #### POCGLUC #### [facility] [address] [place] [address] Dr. Efrain ZuñigaWBC10.9 103/ulNormal4.0-11.0The [facility] on above:Performed By: #### POCGLUC #### [facility] [address] [place] [address] Dr. Efrain ZuñigaCT ABD/PELV W CONon 19-61-9162OR ABD/PELV W CONEXAMINATION: CT ABD/PELV W CON HISTORY: UNSPECIFIED ABDOMINAL PAIN , [...] bowel suspected to be secondary to partial obstruction/incarceration within a tiny paraumbilical hernia. 2. Abnormally dilated common bile duct even considering postcholecystectomy, but no appreciable stone or mass. This is likely chronic. 3. Schmorl's node versus partial superior endplate compression fracture of L2; I suspect Schmorl's node. Electronically authenticated by: LAZARUS PARRA Date: 2022-04-27 08:45[facility] HospitalCULTURE BLOODon 97-25-9035Cqekmjpijas examination of blood, cultureCulture Observations: No growth at 5 days.NormalThe [facility] HealthComment on above:Performed By: #### RF #### [facility] [address] [place] [address] Dr. Efrain ZuñigaMicroscopic examination of blood, cultureCulture Observations: No growth at 5 days.NormalThe [facility] HealthComment on above:Performed By: #### RF #### [facility] [address] [address] [address] Efrain Bansal URINEon 19-06-8994PWHMBCI URINECulture Observations: No growthNormalThe [facility] HealthComment on above:Performed By: #### RF #### [facility] [address] [address] [address] Efrain ZuñigaCovid-19 PCR (CVDTBH)on 56-80-0641JCQZ-CoV-2 (COVID-19) RNA ASHLEIGH+probe Ql (Unsp spec)Not detectedNormalNOT DETECTEDThe [facility] Comment on above:Result Comment: When diagnostic testing is negative, the [...] for this test is supported by the Technician Support Engineer of Health and Human Service's declaration that circumstances exist to justify the emergency use of in vitro diagnostics for the detection and/or diagnosis of the virus that causes COVID-19. This EUA will remain in effect for the duration of the COVID-19 declaration justifying emergency of IVDs, unless it is terminated or revoked by the FDA (after which the test may no longer be used).Performed By: #### CVDTBH #### [facility] [address] [address] [address] Efrain ZuñigaLACTATE/LACTIC ACIDon 26-36-4548Acmdlxe [Moles/Vol]0.7 mmol/L Normal0.4-1.9The [facility] on above:Performed By: #### LACT #### [facility] [address] [place] [address] Dr. Efrain ZuñigaLIPASEon 32-48-3682Towebc [Catalytic activity/Vol]92.0 U/LNormal 73.0-393.0The Chin HospitalComment on above:Performed By: #### POCGLUC #### [facility] [address] [address] [address] Efrain Cisneros PROFILEon 22-56-2940Uplixke [Mass/Vol]3.2 g/dLCritically low3.4-5.0The Wilson HealthComment on above:Performed By: #### POCGLUC #### [facility] [address] [address] [address] Efrain ZuñigaAlbumin/Globulin [Mass ratio]0.8 {ratio}NormalThe Wilson HealthComment on above:Performed By: #### POCGLUC #### [facility] [address] [address] [address] Efrain Osborn [Catalytic activity/Vol]101 U/SKhfldu88-550Rpw [facility] HealthComment on above:Performed By: #### POCGLUC #### [facility] [address] [address] [address] Efrain Sweeney [Catalytic activity/Vol]24 U/EYdkbfm11-17Vjd [facility]atiment on above:Performed By: #### POCGLUC #### [facility] [address] [address] [address] Efrain ZuñigaAST [Catalytic activity/Vol]10 U/LCritically opx08-28Pqs [facility] on above:Performed By: #### POCGLUC #### [facility] [address] [address] [address] Efrain Hodge, CONJUGATED0.2 mg/dLNormal0.0-0.2The [facility] Comment on above:Performed By: #### POCGLUC #### [facility] [address] [address] [address] Efrain Izquierdoirubin [Mass/Vol]0.9 mg/dLNormal0.2-1.0The [facility] Comment on above:Performed By: #### POCGLUC #### [facility] [address] [address] [address] Efrain ZuñigaGlobulin (S) [Mass/Vol]4.0 g/dLNormalThe [facility] HealthComment on above:Performed By: #### POCGLUC #### [facility] [address] [address] [address] Efrain ZuñigaProtein [Mass/Vol]7.2 g/dLNormal6.4-8.2The [facility] Comment on above:Performed By: #### POCGLUC #### [facility] [address] [address] [address] Efrain [facility]uñigaCHATU[facility] GLUCOSEon 99-61-3007Oxnrjkt [Mass/Vol]142 mg/dL Critically eoku44-719Xwy [facility] HealthComment on above:Performed By: #### POCGLUC #### [facility] [address] [place] [address] Dr. Efrain ZuñigaGlucose [Mass/Vol]261 mg/dLCritically wgoc88-307Rno [facility] HealthComment on above:Performed By: #### POCGLUC #### [facility] [address] [place] [address] Dr. Efrain ZuñigaGlucose [Mass/Vol]305 mg/dLCritically kwun30-221Xda [facility] HealthComment on above:Performed By: #### POCGLUC #### [facility] [address] [place] [address] Dr. Efrain ZuñigaPROKeyonna CHEM 8 (BAS METB)on 25-10-2095Tgqmh gap [Moles/Vol]12.9 mmol/LNormalThe Wilson HealthComment on above:Performed By: #### POCGLUC #### [facility] [address] [place] [address] Dr. Efrain ZuñigaCalcium [Mass/Vol]9.2 mg/dLNormal8.5-10.1[facility] Comment on above:Performed By: #### POCGLUC #### [facility] [address] [place] [address] Dr. Efrain ZuñigaChloride [Moles/Vol]99 mmol/HGecywf85-884GapFisher-Titus Medical Center Comment on above:Performed By: #### POCGLUC #### [facility] [address] [place] [address] Dr. Yilan ChangCO2 [Moles/Vol]27.0 mmol/FKkyxll47.0-32.0The [facility] Comment on above:Performed By: #### POCGLUC #### [facility] [address] [place] [address] Dr. Efrain Parkeratinine [Mass/Vol]0.94 mg/dLNormal0.55-1.02The Wilson HealthComment on above:Performed By: #### POCGLUC #### [facility] [address] [place] [address] Dr. Efrain MillerGFR-AF SRI LANKAN>60Normal>=60The [facility] HealthComment on above:Performed By: #### POCGLUC #### [facility] [address] [place] [address] Dr. Efrain MillerGFR-NON AF SRI LANKAN>60Normal>=60The Wilson HealthComment on above:Performed By: #### POCGLUC #### [facility] [address] [place] [address] Dr. Efrain ZuñigaGlucose [Mass/Vol]360 mg/dLCritically zzwx75-928Erv [facility] HealthComment on above:Performed By: #### POCGLUC #### [facility] [address] [place] [address] Dr. Efrain ZuñigaPotassium [Moles/Vol]4.9 mmol/LNormal3.5-5.1The [facility] Comment on above:Performed By: #### POCGLUC #### [facility] [address] [place] [address] Dr. Efrain ZuñigaSodium [Moles/Vol]134 mmol/LCritically iyd885-112Uxg [facility] HealthComment on above:Performed By: #### POCGLUC #### [facility] [address] [place] [address] Dr. Efrain ZuñigaUrea nitrogen [Mass/Vol]17.0 mg/dLNormal7.0-18.0The Wilson HealthComment on above:Performed By: #### POCGLUC #### [facility] [address] [place] [address] Dr. Efrain ZuñigaUrea nitrogen/Creatinine [Mass ratio]18.1 mg/mgLicking Memorial HospitalComment on above:Performed By: #### POCGLUC #### [facility] [address] [address] [address] Efrain ZuñigaXR ABD FLAT UP_PA Brodie 85-03-7023OR ABD FLAT UP_PA CHEXAMINATION: XR ABD FLAT UP_PA CH, 04/27/2022 7:26 [...] Electronically authenticated by: MARINE GUERRERO Date: 2022-04-27 20:34[facility] HospitalXR ABD FLAT UP_PA CHEXAMINATION: XR ABD FLAT UP_PA CH HISTORY: NAUSEA [...] small bowel obstruction. Electronically authenticated by: LAZARUS PARRA Date: 2022-04-27 18:37[facility] Metabolic Panelon 13-60-4902Nmhkm gap [Moles/Vol]11 mmol/L9 - 17 mmol/LMercy HealthCalcium [Mass/Vol]9.1 mg/dL8.6 - 10.4 mg/dLMercy HealthChloride [Moles/Vol]97 mmol/LLow98 - 107 mmol/LMercy HealthCO2 [Moles/Vol] 26 mmol/L20 - 31 mmol/LMercy HealthCreatinine [Mass/Vol]1.04 mg/dLHigh0.50 - 0.90 mg/dLMercy HealthGFR >60>60 mL/minMercy HealthGFR Non- Psgaxech79 mL/minLow>60Mer HealthGlucose [Mass/Vol]441 mg/dLCritically high70 - 99 mg/dLKeenan Private HospitalInterpretation and review of laboratory results AbnormalKettering Health Behavior[facility] Center HealthPotassium [Moles/Vol]4.5 mmol/L3.7 - 5.3 mmol/LMercy Health Sodium [Moles/Vol]134 mmol/NSjh554 - 144 mmol/LMercy HealthUrea nitrogen (BldV) [Mass/Vol]20 mg/dL6 - 20 mg/dLKettering Health Behavioral Medical Center HealthUrea nitrogen/Creatinine (Bld) [Mass ratio]19[facility] CountyLabor[facility] - Chemistry and Chemistry - challenge on 76-34-3337FOM/1.73 sq M.predicted MDRD (S/P/Bld) [Vol rate/Area][facility] Comment on above:Average GFR for 50-59 years old: 93 mL/min/1.73sq m Chronic Kidney Disease: <60 mL/min/1.73sq m Kidney failure: <15 mL/min/1.73sq m eGFR calculated using average adult body mass. Additional eGFR calculator available at: http://www.E-Box - Blogo.it.Yoovi/multiple_crcl_2011.htm Stage 1: Some kidney damage normal GFR Stage 2: Mild kidney damage GFR 60-89 Stage 3: Moderate kidney damage GFR 30-59 Stage 4: Severe kidney damage GFR 15-29 Stage 5: Severe kidney damage GFR <15 ESRD - chronic treatment by dialysis or transplant Steve 79-68-5267ZSS [Catalytic activity/Vol]15 U/L5 - 33 U/LMercy HealthASTon 65-23-4817JFM [Catalytic activity/Vol]9 U/L<32Keenan Private HospitalBasic Metabolic Panel on 92-29-4137Jdkas gap [Moles/Vol]11 mmol/L9 - 17 mmol/LMercy HealthCalcium [Mass/Vol]9.5 mg/dL8.6 - 10.4 mg/dLKeenan Private HospitalChloride [Moles/Vol]93 mmol/LLow 98 - 107 mmol/LMercy HealthCO2 [Moles/Vol]24 mmol/L20 - 31 mmol/LMercy Health Creatinine [Mass/Vol]0.96 mg/dLHigh0.50 - 0.90 mg/dLKeenan Private HospitalGFR >60>60 mL/minKeenan Private HospitalGFR Non->60>60 mL/minKeenan Private HospitalGlucose [Mass/Vol]434 mg/dLCritically high70 - 99 mg/dLKeenan Private Hospital Interpretation and review of laboratory resultsAbnormalKeenan Private HospitalPotassium [Moles/Vol]4.5 mmol/L3.7 - 5.3 mmol/LMercy HealthSodium [Moles/Vol]128 mmol/LLow 135 - 144 mmol/LMercy HealthUrea nitrogen (BldV) [Mass/Vol]14 mg/dL6 - 20 mg/dL [facility] Private HospitalUrea nitrogen/Creatinine (Bld) [Mass ratio]15[facility] CountyLaboratory - Chemistry and Chemistry - challengeon 25-65-7634BDB/1.73 sq M.predicted MDRD (S/P/Bld) [Vol rate/Area][facility] Private HospitalComment on above:Average GFR for 50-59 years old: 93 mL/min/1.73sq m Chronic Kidney Disease: <60 mL/min/1.73sq m Kidney failure: <15 mL/min/1.73sq m eGFR calculated using average adult body mass. Additional eGFR calculator available at: http://www.[employer]/multiple_crcl_2012.htm Stage 1: Some kidney damage normal GFR Stage 2: Mild kidney damage GFR 60-89 Stage 3: Moderate kidney damage GFR 30-59 Stage 4: Severe kidney damage GFR 15-29 Stage 5: Severe kidney damage GFR <15 ESRD - chronic treatment by dialysis or transplant Lipid Panelon 27-65-4415Erzvrvlwbnd [Mass/Vol]141 mg/dL<200Mercy HealthComment on above: Cholesterol Guidelines: <200 Desirable 200-240 Borderline >240 Undesirable Cholesterol in HDL [Mass/Vol]31 mg/dLLow>40Mercy HealthComment on above: HDL Guidelines: <40 Undesirable 40-59 Borderline >59 Desirable Cholesterol in LDL [Mass/Vol]60 mg/dL0 - 130 mg/dLMercy HealthComment on above: LDL Guidelines: <100 Desirable 100-129 Near to/above Desirable 130-159 Borderline >159 Undesirable Direct (measured) LDL and calculated LDL are not interchangeable tests. Cholesterol.total/Cholesterol in HDL [Mass ratio]4.5 {ratio}<5[facility] Interpretation and review of laboratory resultsAbnormalMercy HealthTriglyceride [Mass/Vol]249 mg/dLHigh<150Mercy HealthComment on above: Triglyceride Guidelines: <150 Desirable 150-199 Borderline 200-499 High >499 Very high Based on AHA Guidelines for fasting triglyceride, August 2012. [employer] CorporationNo Panel Informationon 75-50-8256Nojzw HealthProcedure Noteon 84-94-1279Lvcklfhgs NoteMR#: [id number] [facility] Pt. Name: Dorothy Oneal Surgery Date: 09/18/2017 Room #: 5AB [id number] Date of : 1965 PROCEDURE NOTEATTENDING: Estela Womack MDASSISTANT: Milan Cornejo M.D.PREOPERATIVE DIAGNOSIS: Necrotic abdominal incisional wound.PROCEDURE PERFORMED: Sharp excisional debridement of incisional abdominalwound.INDICATIONS: This is a 52-year-old female, [facility], which she underwentexploratory [...] 5 cm deep. The wound was then packedwithsaline-soaked Kerlix, covered with an ABD and paper tape. Dr. Womack wasavailable for the entirety of the procedure. There were no complicationsand no blood loss.Electronically Signed by:Estela Womack MD 11/07/2017 08:36 A Estela Womack MD I was present for the jaimes and critical portions and I was otherwiseimmediately available to assist. Date Dict: 11/05/2017/04:26 P/Milan Cornejo MDDate Trans: 11/06/2017 09:44 A/mmoDN_JN:[id number] HealthCare Main CampusDischarge Summaryon 66-70-2420Xllxrvnuc SummaryMR#: [id number] [facility]UniversC[facility] Name: Dorothy Oneal Admitted: 09/13/2017 Discharged: 09/18/2017 Date of : 1965 Physician: Estela Womack MD DISCHARGE SUMMARYPRIMARY DISCHARGE DIAGNOSIS: Small bowel obstruction.PROCEDURES PERFORMED: None.HOSPITAL COURSE: This is a 52-year-old female who was transferred from [facility], status post small bowel resection. Earlier this month,she underwent a neck surgery and then later developed a small-bowelobstruction. She required an exploratory laparotomy, lysis of adhesions,and primary anastomosis due to the small bowel obstruction. [facility] as she had [...] On hospital day #4, the patient is doingwell withimprovement of her leukocytosis. An NG tube [...] [facility], performed thekey portion(s) of the service and participated in the management andconfirmthe resident's documentation. Please note there may be anadditional personal documentation from me. Date Dict: 09/27/2017/01:59 A/Milan Cornejo, MDDate Trans: 09/27/2017 11:37 P/mmoDN_JN:[id number]:Cary Benton M.D. [address] [place] [address]LpbrycIhwWayne HealthCare Main CampusProcedure Noteon 86-04-6426Afetdnjeb NoteMR#: [id number] [facility]wood [facility] Pt. Name: Dorothy Oneal Surgery Date: 09/18/2017 Room #: 5AB [id number] Date of : 1965 PROCEDURE NOTEATTENDING: MARIA ALEJANDRA PulidoREOPERATIVE DIAGNOSIS: Necrotic abdominal incisional wound.PROCEDURE PERFORMED: Incision and debridementof incisional abdominalwound.INDICATIONS: This is a 52-year-old female, who presented as a transferfrom outside facility after a small bowel obstruction, in which sheunderwent an exploratory laparotom y, small bowel resection and anastomosis.She presented here [...] in bed.The area was prepped with Betadine solution.Approximately 10 mL of 1%lidocaine was infiltrated yesy-incisionally. [...] by:Estela Womack MD 09/20/2017 12:05 P Estela Wmoack MD I was present for the jaimes and critical portions and I was otherwiseimmediately available to assist. Date Dict: 09/18/2017/09:15 Levy/MILAGRO Honeycuttate Trans: 09/19/2017 04:12 A/mmoDN_JN:[id number] HealthCare Main CampusBASIC METABOLIC PANELon 71-21-5577Kswwuba5.4 mg/dLLow8.6-10.3The [facility] HospitalComment on above:Order Comment: No: Do not add to previous draw Performed By: #### 67569, 04456, 05308, 39957 ####[facility] [place] [address], EJRBaptkbvx321 mmol/JRgqqch48-724Nwq [facility] HospitalComment on above:Order Comment: No: Do not add to previous drawPerformed By: #### 83979, 54543, 66553, 17475 ####[facility] [place] [address], ZQKIS203 mmol/L Pimdha50-26Rko [facility] HospitalComment on above:Order Comment: No: Do not add to previous drawPerformed By: #### 06588, 64673, 87727, 39381 ####[facility] [place] [address], USACreatinine1.59 mg/dLHigh0.60-1.20The [facility] Comment on above:Order Comment: No: Do not add to previous drawPerformed By: #### 19294, 85558, 33189, 12865 ####[facility] [place] [address], USAeGFR (black)42 ml/min/1.73sq mAbnormal>60The [facility] HospitalComment on above:Order Comment: No: Do not add to previous drawPerformed By: #### 61538, 86645, 71158, 41590 ####[facility] [place] [address], USAeGFR (non-black) 34 ml/min/1.73sq mAbnormal>60The [facility] HospitalComment on above:Order Comment: No: Do not add to previous drawPerformed By: #### 98367, 06766, 19953, 43272 ####[facility] [place] [address], USAGlucose mass bvik599 mg/zLFaqr81-496Bzn [facility] HospitalComment on above:Order Comment: No: Do not add to previous drawPerformed By: #### 45377, 48292, 61108, 82798 ####[facility] [facility] [place] [address], USAPotassium molar conc3.0 mmol/LLow3.5-5.1The [facility] HospitalComment on above:Order Comment: No: Do not add to previous drawPerformed By: #### 80014, 09979, 84766, 01301 ####[address] [place] [address], JILWetlmq811 mmol/RNbyeqo122-203Tpy [facility] HospitalComment on above:Order Comment: No: Do not add to previous drawPerformed By: #### 94223, 92799, 72459, 96481 ####[address] [place] [address], USAUrea nitrogen9 mg/dLNormal7-25The [facility] HospitalComment on above:Order Comment: No: Do not add to previous draw Performed By: #### 75198, 93517, 44773, 41939 ####[address] [id number], [facility] AT L[facility] VEGASCBC COMPLETE BLOOD COUNTon 95-24-6576Afgdxogwsxf distribution width Auto Ratio (RBC)14.1 %Qpulfy78.5-16.9 The [facility] HospitalComment on above:Order Comment: No: Do not add to previous drawPerformed By: #### 01575, 79454, 00489, 43298 ####[address] [place] [address], [facility] Erythrocytes (RBC)3.30 mill/yl0Vyq3.50-5.50The [facility] HospitalComment on above:Order Comment: No: Do not add to previous drawPerformed By: #### 74385, 77358, 01513, 81468 ####[facility] [facility].[place] [id number], [facility] AT L[facility] VEGASHematocrit (HCT)30.1 %Low36.0-48.0The [facility] HospitalComment on above:Order Comment: No: Do not add to previous drawPerformed By: #### 39604, 32796, 98387, 77685 ####[facility] [place] [address].[place] [address], [facility] AT L[facility] VEGASHemoglobin mass conc (Bld)9.9 g/dLLow12.0-15.0The [facility] HospitalComment on above:Order Comment: No: Do not add to previous drawPerformed By: #### 48213, 32309, 07295, 10874 ####[address] [place] [address], BHIHTO21.8 euOpkfls34.0-32.0The [facility] HospitalComment on above:Order Comment: No: Do not add to previous draw Performed By: #### 81309, 73441, 28129, 74421 ####[address] [place] [address], [facility] AT L[facility] VEGASMCHC mass conc (RBC)32.8 g/dLNormal 32.0-36.0The [facility] HospitalComment on above:Order Comment: No: Do not add to previous drawPerformed By: #### 34961, 25858, 03610, 74307 ####[facility] [place] [address].[place] [address], [place] MCV91.0 gXYtqvya92.0-100.0The [facility] HospitalComment on above:Order Comment: No: Do not add to previous drawPerformed By: #### 46638, 86739, 52761, 49175 ####[address] [place] [address], USAPLAT KDS541 Thou/kz4Yxbbrv531-800Cjk [facility] HospitalComment on above:Order Comment: No: Do not add to previous drawPerformed By: #### 25405, 10391, 28380, 94333 ####[facility] [address], USAWBC (Leukocytes)8.8 Thou/um8Qjbqkl3.0-10.0The [facility] HospitalComment on above: Order Comment: No: Do not add to previous drawPerformed By: #### 69810, 42322, 51091, 27717 ####[facility] [place] [address], [facility] INSTITUTE AT LAS VEGASPOC GLUCOSE LABon 80-14-1436Hywyqoq mass exxg141 mg/qMBesd49-638Baq [facility] HospitalComment on above:Performed By: #### 31519, 01806, 33791, 53064 ####[facility] [place] [address], USAGlucose mass svpm262 mg/jTJabk55-306Wef [facility] HospitalComment on above:Performed By: #### 87512, 90107, 40107, 57402 ####[facility]ARYJOBANNER [place] [address], USABASIC METABOLIC PANELon 31-08-1790Avesmkj2.3 mg/dLLow8.6-10.3The [facility] HospitalComment on above:Order Comment: Yes: Add to Previous draw if ablePerformed By: #### 91529, 76405, 89593, 45962 ####[facility] [place] [address], WLWOzeknrsn601 mmol/L Rdukqk30-763Lec [facility] HospitalComment on above:Order Comment: Yes: Add to Previous draw if ablePerformed By: #### 11479, 74146, 40502, 25692 ####[facility] [place] [address], ISUGF442 mmol/EPqirmg16-64Alf [facility] HospitalComment on above:Order Comment: Yes: Add to Previous draw if ablePerformed By: #### 62460, 87955, 42876, 13870 ####[facility] [place] [address], USACreatinine1.67 mg/dLHigh0.60-1.20The [facility] HospitalComment on above:Order Comment: Yes: Add to Previous draw if ablePerformed By: #### 45597, 36775, 95754, 72062 ####[facility] [place] [address], USAeGFR (black)39 ml/min/1.73sq mAbnormal>60The [facility] HospitalComment on above:Order Comment: Yes: Add to Previous draw if ablePerformed By: #### 30139, 67480, 75372, 80935 ####[facility] [place] [address], USAeGFR (non-black)33 ml/min/1.73sq mAbnormal>60The [facility] HospitalComment on above:Order Comment: Yes: Add to Previous draw if ablePerformed By: #### 14969, 09430, 81433, 60606 ####[address] [place] [address], [facility] Glucose mass nifq876 mg/oUXjco99-479Pbk [facility] Comment on above:Order Comment: Yes: Add to Previous draw if ablePerformed By: #### 87512, 51809, 99137, 67277 ####[facility] [facility] [address], USAPotassium molar conc3.3 mmol/LLow3.5-5.1The [facility] HospitalComment on above:Order Comment: Yes: Add to Previous draw if ablePerformed By: #### 92116, 80667, 29237, 34141 ####[facility] [place] [address], [place] Lingpv393 mmol/ZRiisqc012-459Tzc [facility] HospitalComment on above:Order Comment: Yes: Add to Previous draw if ablePerformed By: #### 73175, 15913, 26650, 80839 ####[facility] [place] [address], [facility] AT L[facility] VEGASUrea mg/dLNormal7-25The [facility] HospitalComment on above:Order Comment: Yes: Add to Previous draw if able Performed By: #### 58596, 74236, 03032, 37708 ####[address] [place] [address], [facility] AT L[facility] VEGASCB COMPLETE BLOOD COUNTon 80-07-6385Sitchzkexvh distribution width Auto Ratio (RBC)14.3 %Pwjkef87.5-16.9 The [facility] HospitalComment on above:Order Comment: Yes: Add to Previous draw if ablePerformed By: #### 89979, 38619, 77463, 18865 ####[place] [facility] [place] [address], [facility] Erythrocytes (RBC)3.20 mill/am7Lpc7.50-5.50The [facility] HospitalComment on above:Order Comment: Yes: Add to Previous draw if ablePerformed By: #### 39780, 87142, 72933, 24497 ####[address] [place] [address], [facility] AT L[facility] VEGASHematocrit (HCT)29.2 %Low36.0-48.0The [facility] HospitalComment on above:Order Comment: Yes: Add to Previous draw if ablePerformed By: #### 86289, 54429, 78052, 44564 ####[address] Hemoglobin mass conc (Bld)9.6 g/dLLow12.0-15.0The [facility] HospitalComment on above:Order Comment: Yes: Add to Previous draw if ablePerformed By: #### 73024, 15348, 10228, 26781 ####[facility] [place] [address].[place] [address], HHPBQM63.0 jsYdjbyv66.0-32.0The [facility] HospitalComment on above:Order Comment: Yes: Add to Previous draw if ablePerformed By: #### 91351, 27316, 15316, 21530 ####[address] [place] [address], [facility] AT L[facility] VEGASMCHC mass conc (RBC)32.9 g/zOJvqbre11.0-36.0The [facility] HospitalComment on above:Order Comment: Yes: Add to Previous draw if ablePerformed By: #### 05899, 88742, 37802, 32636 ####[address] [place] [address], JXYUFA71.3 sQYhuklz94.0-100.0The [facility] Comment on above:Order Comment: Yes: Add to Previous draw if ablePerformed By: #### 31878, 67465, 88390, 66405 ####[address] [place] [address], [facility]ALTH INSTITUTE AT LAS VEGASPLAT UHJ948 Thou/xh0Zfadui708-590Xpf [facility] HospitalComment on above:Order Comment: Yes: Add to Previous draw if ablePerformed By: #### 72403, 81791, 64166, 71482 ####[address] [place] [address], [facility] WBC (Leukocytes)7.8 Thou/ur9Sxcdte1.0-10.0The [facility] HospitalComment on above:Order Comment: Yes: Add to Previous draw if ablePerformed By: #### 04769, 17900, 89208, 68305 ####[address] [place] [address], [facility] AT L[facility] VEGASMAGNESIUM BLOODon 85-26-8342Gqfdwwpye1.6 mg/dLLow1.9-2.7The [facility] HospitalComment on above:Order Comment: Yes: Add to Previous draw if ablePerformed By: #### 54289, 55587, 24739, 36373 ####[facility] [place] [address], [place]APOC GLUCOSE LABon 60-57-8432Scqhlne mass ndjn933 mg/uOMzpu36-431Rau [facility] HospitalComment on above:Performed By: #### 01754, 03882, 25394, 25605 ####[facility] [place] [address], USAGlucose mass zfqk878 mg/qZPjzg89-176Bcs [facility] HospitalComment on above:Performed By: #### 56511, 07759, 64538, 66175 ####[facility] [facility] [place] [address], USAGlucose mass rsdo520 mg/lJVozp11-795Qhr [facility] Comment on above:Performed By: #### 23972, 05729, 83736, 31618 ####[facility] [place] [address], USAGlucose mass conc 159 mg/oCIdtu53-950Eja [facility] HospitalComment on above: Performed By: #### 17343, 11952, 75771, 46332 ####[facility] [facility] [place] [address], USAGlucose mass koba714 mg/dLHigh 70-100The [facility] HospitalComment on above:Performed By: #### 44855, 81628, 65110, 74910 ####[facility] [facility] [place] [address], USABASIC METABOLIC PANELon 30-21-3828Ouqrhaa9.3 mg/dLLow8.6-10.3The [facility] HospitalComment on above:Order Comment: No: Do not add to previous drawPerformed By: #### 45028, 28700 ####[facility] [place] [address], [place] Mjhuafew609 mmol/NTesr76-175Mqi [facility] HospitalComment on above:Order Comment: No: Do not add to previous drawPerformed By: #### 72242, 03373 ####[facility] [place] [address], SOLNL352 mmol/MVfezpk86-65Snp [facility] HospitalComment on above:Order Comment: No: Do not add to previous drawPerformed By: #### 10051, 47590 ####[facility] [place] [address], USACreatinine1.76 mg/dLHigh0.60-1.20The [facility] HospitalComment on above:Order Comment: No: Do not add to previous drawPerformed By: #### 69629, 96030 ####[facility] [place] [address], USAeGFR (black)37 ml/min/1.73sq mAbnormal>60The [facility] HospitalComment on above:Order Comment: No: Do not add to previous drawPerformed By: #### 16904, 69186 ####[facility] [place] [address], USAeGFR (non-black)30 ml/min/1.73sq m Abnormal>60The [facility] HospitalComment on above:Order Comment: No: Do not add to previous drawPerformed By: #### 26400, 33084 ####[facility] [place] [address], [place] Glucose mass conc93 mg/bGIwnuyn28-753Xdi [facility] Comment on above:Order Comment: No: Do not add to previous drawPerformed By: #### 64162, 30196 ####[facility] [place] [address], USAPotassium molar conc3.5 mmol/LNormal3.5-5.1The [facility] HospitalComment on above:Order Comment: No: Do not add to previous drawPerformed By: #### 17410, 28752 ####[facility] [place] [address], EYNEqmens284 mmol/LHigh 136-145The [facility] HospitalComment on above:Order Comment: No: Do not add to previous drawPerformed By: #### 50072, 96538 ####[facility] [place] [address], USAUrea aawxxena10 mg/dLNormal7-25The [facility] HospitalComment on above:Order Comment: No: Do not add to previous drawPerformed By: #### 14777, 47456 ####[facility] [place], [place] [address] [address], [facility] CBC COMPLETE BLOOD COUNTon 77-30-0750Yixwhhqwsdd distribution width Auto Ratio (RBC)13.6 %Mlgjmb23.5-16.9The [facility] HospitalComment on above:Order Comment: No: Do not add to previous drawPerformed By: #### 09321, 91386 ####[facility] [place] [address], [facility] VEGASErythrocytes (RBC)3.16 mill/vj7Ajf0.50-5.50The [facility] HospitalComment on above:Order Comment: No: Do not add to previous draw Performed By: #### 04667, 36507 ####[facility] [place] [address], [facility] VEGASHematocrit (HCT)28.8 %Low36.0-48.0The [facility] HospitalComment on above:Order Comment: No: Do not add to previous drawPerformed By: #### 03605, 17179 ####[facility] [place] [address], [facility]ASHemoglobin mass conc (Bld) 9.5 g/dLLow12.0-15.0The [facility] HospitalComment on above: Order Comment: No: Do not add to previous drawPerformed By: #### 80395, 58679 ####[facility] [facility] [place] [address], [facility] MCH30.1 cvMxtrcc41.0-32.0The [facility] HospitalComment on above:Order Comment: No: Do not add to previous drawPerformed By: #### 58761, 16118 ####[facility] [facility] [place] [address], [facility] VEGASMCHC mass conc (RBC)33.0 g/qADrmxmm07.0-36.0The [facility] HospitalComment on above:Order Comment: No: Do not add to previous draw Performed By: #### 97425, 35408 ####[facility] [facility] [place] [address], QONBUQ35.2 iTYaddfk51.0-100.0The [facility] HospitalComment on above:Order Comment: No: Do not add to previous drawPerformed By: #### 01156, 08608 ####[facility] [place] [address].[place] [address], [facility]STITUTE AT L[facility] VEGASPLAT ECE417 Thou/dm7Aoatut637-734Fay [facility] HospitalComment on above:Order Comment: No: Do not add to previous drawPerformed By: #### 21902, 01012 ####[facility] [facility] [place] [address], [facility] INSTITUTE AT L[facility] VEGASWBC (Leukocytes)9.2 Thou/fw2Toeebu3.0-10.0The [facility] HospitalComment on above: Order Comment: No: Do not add to previous drawPerformed By: #### 16896, 90535 ####[facility] [place] [address].[place] [address], [facility] POC GLUCOSE LABon 16-71-1335Bxxmevw mass ezse803 mg/vYDwig88-230Pzn [facility] HospitalComment on above:Performed By: #### 41901, 63859 ####[facility] [place] [address], [facility] Glucose mass lazq759 mg/eLFmth97-652Cug [facility] Comment on above:Performed By: #### 82242, 87626 ####[facility] [place] [address], [facility] L[facility] VEGASGlucose mass conc96 mg/dL Mfttzw13-590Mdh [facility] HospitalComment on above:Performed By: #### 42571, 29879 ####[facility] [place] [address] [place] [address], [facility]ASGlucose mass conc79 mg/bFFtjmss44-403Enk [facility] HospitalComment on above:Performed By: #### 60140, 12797 ####[facility] [facility] [place] [address], [facility] BASIC METABOLIC PANELon 57-04-4419Pbpwxod7.5 mg/dLLow8.6-10.3The [facility] HospitalComment on above:Order Comment: No: Do not add to previous drawPerformed By: #### 81392, 62348 ####[facility] [place] [address], VSMSxpeogvr779 mmol/OPllh74-178Nrg [facility] HospitalComment on above:Order Comment: No: Do not add to previous drawPerformed By: #### 21382, 29536 ####[facility] [place] [address] [place] [address], AQSOH580 mmol/QVrfyxu98-68Ska [facility] HospitalComment on above:Order Comment: No: Do not add to previous drawPerformed By: #### 80515, 15934 ####[facility] [place] [address], USACreatinine1.96 mg/dLHigh0.60-1.20The [facility] HospitalComment on above:Order Comment: No: Do not add to previous drawPerformed By: #### 29398, 19528 ####[facility] [place] [address], USAeGFR (black)33 ml/min/1.73sq mAbnormal>60The [facility] HospitalComment on above:Order Comment: No: Do not add to previous drawPerformed By: #### 26995, 55787 ####[facility] [place] [address], USAeGFR (non-black)27 ml/min/1.73sq mAbnormal>60The [facility] HospitalComment on above:Order Comment: No: Do not add to previous draw Performed By: #### 22809, 28381 ####[facility] [place] [address], [facility] L[facility] VE[facility]ASGlucose mass conc92 mg/jHCqlbfq05-205Hlp [facility] HospitalComment on above:Order Comment: No: Do not add to previous drawPerformed By: #### 91295, 60716 ####[facility] [place] [address] [place] [address], USAPotassium molar conc3.8 mmol/LNormal3.5-5.1The [facility] HospitalComment on above:Order Comment: No: Do not add to previous drawPerformed By: #### 85062, 32981 ####[facility] [place] [address], [place] Kcqvtf718 mmol/EAboxrd519-064Yds [facility] HospitalComment on above:Order Comment: No: Do not add to previous drawPerformed By: #### 25062, 15553 ####[facility] [place] [address], USAUrea tcucfynu77 mg/dLNormal7-25The [facility] Comment on above:Order Comment: No: Do not add to previous drawPerformed By: #### 95274, 30071 ####[facility] [facility] [place] [address], USACBC COMPLETE BLOOD COUNTon 28-08-6402Wyokzhveysy distribution width Auto Ratio (RBC)14.3 %Cvxvvn23.5-16.9The [facility] HospitalComment on above:Order Comment: No: Do not add to previous draw Performed By: #### 89376, 82149 ####[facility] [facility] [place] [address], [facility] VE[facility]ASErythrocytes (RBC)3.37 mill/ev2Kfc6.50-5.50 The [facility] HospitalComment on above:Order Comment: No: Do not add to previous drawPerformed By: #### 15845, 27553 ####[facility] [facility] [place] [address], USAHematocrit (HCT)31.1 %Low 36.0-48.0The [facility] HospitalComment on above:Order Comment: No: Do not add to previous drawPerformed By: #### 60167, 65419 ####[facility] [facility] [place] [address], USAHemoglobin mass conc (Bld)9.9 g/dLLow12.0-15.0The [facility] HospitalComment on above:Order Comment: No: Do not add to previous drawPerformed By: #### 29502, 10127 ####[facility] [facility] [place] [address], MXZWJB58.5 bdQsyiqi67.0-32.0The [facility] Comment on above:Order Comment: No: Do not add to previous drawPerformed By: #### 51457, 07438 ####[facility] [facility] [place] [address], [facility] GUTHRIEHC mass conc (RBC)32.0 g/jJKycrjp98.0-36.0The [facility] HospitalComment on above:Order Comment: No: Do not add to previous drawPerformed By: #### 47751, 64765 ####[facility] [facility] [place] [address], JZRKAG42.4 tBKouxdz16.0-100.0 The [facility] HospitalComment on above:Order Comment: No: Do not add to previous drawPerformed By: #### 83277, 32575 ####[facility] [facility] [place] [address], [facility]STITUTE AT L[facility] VEGASPLAT SGC705 Thou/mm3 Gabnmn024-799Rdp [facility] HospitalComment on above:Order Comment: No: Do not add to previous drawPerformed By: #### 78751, 68041 ####[facility] [facility] [place] [address], [facility] WBC (Leukocytes)10.7 Thou/dn0Mqem5.0-10.0The [facility] Comment on above:Order Comment: No: Do not add to previous drawPerformed By: #### 67610, 55848 ####[facility] [facility] [place] [address], [facility] L[facility] VEGASMAGNESIUM BLOODon 91-82-6636Mnbxvvahc8.9 mg/dLNormal 1.9-2.7The [facility] HospitalComment on above:Order Comment: No: Do not add to previous drawPerformed By: #### 53147, 46891 ####[facility] [facility] [place] [address], [facility] AT L[facility] VEGASPHOSPHORUS BLOODon 56-00-3407Kubjdjnzn7.2 mg/dLHigh2.5-5.0The [facility] Comment on above:Order Comment: No: Do not add to previous drawPerformed By: #### 23185, 74032 ####[facility] [place] [address], USAPOC GLUCOSE LABon 90-11-3569Njkbbcu mass conc84 mg/dL Cuxipw20-016Zzg [facility] HospitalComment on above:Performed By: #### 07661, 20619 ####[facility] [place] [address] [place] [address], USAGlucose mass sqtg048 mg/zTJyjo09-654Quj [facility] HospitalComment on above:Performed By: #### 57717, 56582 ####[facility] [place] [address] [place] [address], [place] Glucose mass conc97 mg/xFExiopf28-839Hal [facility] Comment on above:Performed By: #### 27421, 52053 ####[address] [place] [address], USAGlucose mass conc88 mg/dL Rjjoov55-452Tne [facility] HospitalComment on above:Performed By: #### 07636, 13022 ####[address] [place] [address], USASMALL BOWELon 01-43-8215VRUFM BOWELUnACMC Healthcare System GlenbeighDepartment of Avkbpozcd[address] [place] [id number] Patien t Name: DOROTHY ONEAL : 1965Sex: FAge: Race: WhiteMRN: [id number]. Location: [id number] Status: IVisit #: [id number] Date: 09/15/2017 8:40:00 AMCompleted Date: 09/15/2017 01:11 PMRequesting Provider: LIZZ MUKHERJEE Attending Provider: ESTELA WOMACK Report Copy To: Signs & Symptoms: Abdomen Pain GeneralizedHistory: Patient history not availableComments: Other, small bowel obstruction. please do small bowel follow through with water soluableExam: SMALL BOWELAccession #: [id number] =SMALL BOWEL09/15/2017 1:11 PM EDT SIGNS AND SYMPTOMS: Abdomen Pain Generalized TECHNOLOGIST COMMENTS: rule outobstruction, 200 ml of omnipaque 350 through feeding tube, 0.1 minutes of fluoro time QUESTION FOR THE RADIOLOGIST: Other, small bowel obstruction. please do small bowel follow through with water solu able CONTRAST: Contrast: OMNIPAQUE 350 (LOCM), 200 milliliter, Nasal COMPARISON: Outside CT abdomenand pelvis September 13, 2017. FINDINGS: NG tube in satisfactory position. Contrast is visualized throughout the small bowel and into the colon without evidence of obstruction. Small bowel transit timeof approximately 3 hours. IMPRESSION: Contrast visualized in the colon after approximately 3 hours.No evidence of complete small bowel obstruction. Approved by:Servando Douglas on 09/15/2017 1:38 PM EDT. I, Alfredo Feng M.D., have reviewed the images and report and concur with these findings. Electronically signed by:Alfredo Feng M.D.. Transcribed by: [email or web address], User Resident: SERVANDO DOUGLASElectronically Signed by: ALFREDO FENG @ 09/15/2017 02:05 PMI personally read this/thesefilm(s) with this residentWayne HealthCare Main CampusComment on above:Order Comment: No: Do not add to previous drawBASIC METABOLIC PANELon 24-20-4436Xlerpap1.6 mg/dLNormal8.6-10.3The [facility] HospitalComment on above:Order Comment: No: Do not add to previous drawPerformed By: #### 55060, 22470 ####[facility] [place] [address], VPNMynhxsbw975 mmol/LNormal 98-107The [facility] HospitalComment on above:Order Comment: No: Do not add to previous drawPerformed By: #### 89299, 40256 ####[facility] [place] [address], VGFOT511 mmol/LNormal 21-31The [facility] HospitalComment on above:Order Comment: No: Do not add to previous drawPerformed By: #### 55174, 73944 ####[facility] [place] [address], USACreatinine2.01 mg/dLHigh0.60-1.20The [facility] HospitalComment on above:Order Comment: No: Do not add to previous drawPerformed By: #### 85841, 38991 ####[facility] [place] [address], [place] eGFR (black)32 ml/min/1.73sq mAbnormal>60The [facility] Comment on above:Order Comment: No: Do not add to previous drawPerformed By: #### 14376, 62047 ####[place] [address] [place] [address], USAeGFR (non-black)26 ml/min/1.73sq mAbnormal>60The [facility] HospitalComment on above:Order Comment: No: Do not add to previous drawPerformed By: #### 28364, 65508 ####[facility] [place] [address], USAGlucose mass gciw712 mg/dL Qlam86-817Cox [facility] HospitalComment on above:Order Comment: No: Do not add to previous drawPerformed By: #### 91021, 47155 ####[facility] [place] [address], USAPotassium molar conc4.0 mmol/LNormal3.5-5.1The [facility] HospitalComment on above:Order Comment: No: Do not add to previous drawPerformed By: #### 96407, 15656 ####[address] [place] [address], RAQQwebgf221 mmol/ZPuqkdv717-607Lky [facility] Comment on above:Order Comment: No: Do not add to previous drawPerformed By: #### 56123, 20566 ####[address] [place] [address], [facility] AT L[facility] VEGASUrea fnybvjfv72 mg/dLNormal7-25The [facility] HospitalComment on above:Order Comment: No: Do not add to previous draw Performed By: #### 96783, 97871 ####[address] [place] [address], [facility] AT L[facility] VEGASCB COMPLETE BLOOD COUNTon 09-14-2017 Erythrocyte distribution width Auto Ratio (RBC)14.3 %Kepmcc90.5-16.9The [facility] HospitalComment on above:Order Comment: No: Do not add to previous drawPerformed By: #### 00044, 07638 ####[address] [place] [address], [facility] AT L[facility] VEGASErythrocytes (RBC)3.77 mill/uf5Emless6.50-5.50The [facility] HospitalComment on above: Order Comment: No: Do not add to previous drawPerformed By: #### 43273, 24106 ####[address] [place] [address], [facility] Hematocrit (HCT)34.8 %Low36.0-48.0The [facility] HospitalComment on above:Order Comment: No: Do not add to previous drawPerformed By: #### 26372, 64462 ####[address] [place] [address], [facility] AT L[facility] VEGASHemoglobin mass conc (Bld)11.3 g/dLLow12.0-15.0The [facility] HospitalComment on above:Order Comment: No: Do not add to previous drawPerformed By: #### 42296, 82801 ####[facility] [facility] [place] [address], JBELRP21.8 lqUhutgp79.0-32.0The [facility] HospitalComment on above:Order Comment: No: Do not add to previous drawPerformed By: #### 17972, 67609 ####[facility] [facility] [place] [address], [facility] AT L[facility] VEGASMCHC mass conc (RBC)32.3 g/qGIceccr77.0-36.0 The [facility] HospitalComment on above:Order Comment: No: Do not add to previous drawPerformed By: #### 46618, 93659 ####[facility] [facility] [place] [address], TRIQIS24.3 fLNormal 80.0-100.0The [facility] HospitalComment on above:Order Comment: No: Do not add to previous drawPerformed By: #### 96053, 43666 ####[facility] [place] [address].[place] [address], USAPLAT KRG335 Thou/oz5Capmcl742-784Gvs [facility] HospitalComment on above: Order Comment: No: Do not add to previous drawPerformed By: #### 21051, 56298 ####[facility] [facility] [place] [address], [facility] WBC (Leukocytes)11.8 Thou/mb9Aidy0.0-10.0The [facility] Comment on above:Order Comment: No: Do not add to previous drawPerformed By: #### 84223, 16394 ####[facility] [facility] [place] [address], USAPOC GLUCOSE LABon 68-53-5724Okddban mass conc92 mg/dL Ldalkh10-173Sac [facility] HospitalComment on above:Performed By: #### 44024, 84803 ####[facility] [place] [address], USAGlucose mass swcc777 mg/dKSddd02-825Iiq [facility] HospitalComment on above:Performed By: #### 80380, 59513 ####[facility] [place] [address], [place] Glucose mass vbyl638 mg/tYPxke35-336Syh [facility] Comment on above:Performed By: #### 57938, 00908 ####[facility] [facility] [place] [address], USAGlucose mass conc93 mg/dL Egwgfh13-700Rpp [facility] HospitalComment on above:Performed By: #### 41670 ####[facility] [facility] [place] [address], [facility] VE[facility]ASAMYLASE BLOODon 64-57-7817Qbrfcwe59 Units/NUrqzgz34-701Utz [facility] HospitalComment on above:Order Comment: No: Do not add to previous drawPerformed By: #### 02500, 73391, 18862, 69602 ####[facility] [place] [address], USAAPTTon 07-07-2490uNOY70.3 tOgukni90.0-35.0The [facility] Comment on above:Order Comment: No: Do not add to previous drawResult Comment: ALL RESULTS MUST BE INTERPRETED WITH RESPECT TO BLOOD DRAWING ARTIFACTOR DILUTION ERROR OF ANTICOAGULANT AT THE TIME OF SAMPLING.THE APTT SHOULD NOT BE USED TO MONITOR UNFRACTIONATED HEPARIN THERAPY, THIS LABORATORY NO LONGER HAS AN ESTABLISHED THERAPEUTIC RANGE BASEDON THE APTT. IT IS RECOMMENDED THAT THE [facility] - HEPARIN ASSAY (ANTI-XAACTIVITY) BE USED FOR THIS PURPOSE.Performed By: #### 42162, 61300 ####[facility] [place] [address], USABASIC METABOLIC PANELon 94-52-1763Stxsefx1.7 mg/dL Normal8.6-10.3The [facility] HospitalComment on above:Order Comment: No: Do not add to previous drawPerformed By: #### 14021, 07861, 45266, 14394 ####[facility] [place] [address], BRCKhixngvo585 mmol/QVgsghm52-781Blv [facility] HospitalComment on above:Order Comment: No: Do not add to previous drawPerformed By: #### 90300, 98491, 67667, 20222 ####[facility] [place] [address], FCOZK342 mmol/UQyldwq68-98Gef [facility] HospitalComment on above:Order Comment: No: Do not add to previous drawPerformed By: #### 35568, 52305, 87341, 96705 ####[facility] [place] [address], USACreatinine2.16 mg/dLHigh0.60-1.20The [facility] HospitalComment on above:Order Comment: No: Do not add to previous drawPerformed By: #### 62840, 08859, 93269, 77603 ####[facility] [place] [address], USAeGFR (black)29 ml/min/1.73sq mAbnormal>60The [facility] HospitalComment on above:Order Comment: No: Do not add to previous drawPerformed By: #### 14951, 09099, 22665, 64377 ####[facility] [place] [address], USAeGFR (non-black)24 ml/min/1.73sq mAbnormal>60The [facility] HospitalComment on above:Order Comment: No: Do not add to previous drawPerformed By: #### 16500, 07696, 04647, 27547 ####[address] [place] [address], [facility] AT L[facility] VEGASGlucose mass conc96 mg/fFJotfnj47-722Pcf [facility] HospitalComment on above: Order Comment: No: Do not add to previous drawPerformed By: #### [id number], [id number], 35786, [id number] ####[address] [place] [address], [facility] AT L[facility] VEGASPotassium molar conc4.3 mmol/LNormal3.5-5.1The [facility] HospitalComment on above:Order Comment: No: Do not add to previous draw Performed By: #### [id number], 79705, 97459, 31954 ####[address] [place] [address], WIBEtjuly755 mmol/MNxnnrp420-165Xyp [facility] HospitalComment on above:Order Comment: No: Do not add to previous drawPerformed By: #### [id number], 48220, [id number], 96149 ####[address] [place] [address], USAUrea ujsagpeo64 mg/dLNormal7-25The [facility] HospitalComment on above:Order Comment: No: Do not add to previous drawPerformed By: #### [id number], 76756, 90349, 34720 ####[address] [place] [address], [facility] AT L[facility] VEGASCBC W/DIFFon 67-49-1231Nrydvgbfx Auto #/vol (Bld)0.5 %Normal0.0-2.0The [facility]row County HospitalComment on above:Performed By: #### [id number] ####[address] [place] [address], [facility] Eosinophils/100 leukocytes1.5 %Normal0.0-5.0The [facility] County HospitalComment on above:Performed By: #### 82969 ####[facility] [facility] [place] [address], [facility] AT L[facility] VEGASErythrocyte distribution width Auto Ratio (RBC)14.5 %Fwxitj30.5-16.9[facility] Comment on above:Performed By: #### 22146 ####[address] [place] [address], [facility] L[facility] VE[facility]ASErythrocytes (RBC)3.72 mill/mm3 Normal3.50-5.50The [facility] County HospitalComment on above:Performed By: #### 02830 ####[address] [place] [address], [facility] VE[facility]ASHematocrit (HCT)34.1 %Low36.0-48.0The [facility] County HospitalComment on above:Performed By: #### 22650 ####[address] [place] [address], [facility]ASHemoglobin mass conc (Bld)11.3 g/dLLow12.0-15.0The [facility] HospitalComment on above:Performed By: #### 26108 ####[place] [address], [facility]ASLymphocytes/100 leukocytes7.6 %Low20.0-40.0 The [facility] County HospitalComment on above:Performed By: #### 28224 ####[place] [address], [facility] MCH30.4 ujHghhre48.0-32.0The [facility] HospitalComment on above:Performed By: #### 34003 ####[place] [address], [facility]ASMCHC mass conc (RBC)33.1 g/vVPlxydx19.0-36.0 The [facility] HospitalComment on above:Performed By: #### 38190 ####[facility] [place] [address], [facility] MCV91.8 bFCzixjk93.0-100.0The [facility] County HospitalComment on above:Performed By: #### 89545 ####[facility] [place] [address], [facility]ASMETHODNormal RBC MorphologyNormalThe Morrow County HospitalComment on above:Performed By: #### 43187 ####[facility] [facility] [place] [address], [place] MONOS6.3 %Normal2-8The [facility] County HospitalComment on above: Performed By: #### 46616 ####[facility] [facility] [place] [address], [facility]ASNeutrophils/100 xhbyydoqvy35.1 %Lswo68-86Usw [facility] HospitalComment on above:Performed By: #### 41901 ####[facility] [facility] [place] [address], [place] PLAT [id number] Thou/my6Ohmyce947-756Axn [facility] HospitalComment on above:Performed By: #### 74179 ####[facility] [facility] [place] [address], [facility] L[facility] VE[facility]ASWBC (Leukocytes)15.5 Thou/me8Amtr4.0-10.0The [facility] County HospitalComment on above:Performed By: #### 11670 ####[facility] [facility] [place] [address], [place] LACTATE BLOODon 23-34-0614Aljhdvi1.8 mmol/LNormal.5-2.2The [facility] HospitalComment on above:Order Comment: No: Do not add to previous draw Performed By: #### 76456 ####[facility] [place] [address], USALIPASE BLOODon 46-82-6897Exdcas53 Units/RPrhzue25-99Xkk [facility] HospitalComment on above:Order Comment: Yes: Add to Previous draw if ablePerformed By: #### 27844, 65216, 65931, 86283 ####[facility] [facility] [place] [address], [facility] LIVER BATTERYon 01-85-7672Tcwtmyf aminotransferase (ALT)13 U/LNormal7-52The [facility] HospitalComment on above:Order Comment: No: Do not add to previous drawPerformed By: #### 76922, 40896, 46942, 75091 ####[facility] [place] [address].[place] [address], USAAlbumin2.5 g/dL Low3.5-5.7The [facility] County HospitalComment on above:Order Comment: No: Do not add to previous drawPerformed By: #### 22350, 49625, 51501, 54430 ####[facility] [place] [address].[place] [address], [place] ALKALINE YRKTTQ48 IU/DFulgif72-455Zps [facility] HospitalComment on above:Order Comment: No: Do not add to previous drawPerformed By: #### 39974, 73482, 51560, 38483 ####[address] [place] [address], USAAspartate aminotransferase (AST)10 U/LJus69-04Gil [facility] HospitalComment on above:Order Comment: No: Do not add to previous drawPerformed By: #### 45206, 21939, 93728, 51252 ####[facility] [facility] [place] [address], USABilirubin (direct)0.1 mg/dLNormal0.0-0.2The [facility] HospitalComment on above:Order Comment: No: Do not add to previous drawPerformed By: #### 76011, 27629, 90278, 61383 ####[facility] [place] [address], USABilirubin (total)0.4 mg/dLNormal0.3-1.0The [facility] HospitalComment on above:Order Comment: No: Do not add to previous drawPerformed By: #### 65553, 12194, 83030, 58082 ####[facility] [facility] [place] [address], USAProtein6.3 g/dL Normal6.0-8.3The [facility] HospitalComment on above:Order Comment: No: Do not add to previous drawPerformed By: #### 25168, 89474, 05914, 70888 ####[address] [facility] [place] [address], [facility] AT L[facility] VEGASPOC GLUCOSE LABon 15-20-4128Mcroues mass conc87 mg/qEZfenov12-045Rdg [facility] HospitalComment on above:Performed By: #### 93690 ####[facility] [place] [address], [facility] PROTHROMBIN TIMEon 01-88-3907RES Coag RelTime (PPP)1.19 {INR}High0.91-1.16The [facility] County HospitalComment on above:Order Comment: No: Do not add to previous drawResult Comment: ACCCP RECOMMENDED INR FOR WARFARIN THERAPY CONDITION INRPROPHYLAXIS OF VENOUS THROMBOSIS 2-3(HIGH-RISK SURGERY)TREATMENT OF VENOUS THROMBOSIS 2-3TREATMENT OF PULMONARY EMBOLISM 2-3PREVENTION OF SYSTEMIC EMBOLISM: 2-3 ACUTE MYOCARDIAL INFARCTION TISSUE HEART VALVES VALVULAR HEART DISEASE ATRIAL FIBRILLATION RECURRENT SYSTEMIC EMBOLISMMECHANICAL HEART VALVE 2.5-3.5 FROM: ORAL ANTICOAGULANTS. MECHANISM OF ACTION, CLINICALEFFECTIVENESS, AND OPTIMAL THERAPEU TIC RANGE. [id number];108:231S-246S.Performed By: #### 99243, 47037 ####[facility] [facility] Prothrombin time (PT) Coag time (PPP)15.2 sHigh12.3-14.8The [facility] County HospitalComment on above:Order Comment: No: Do not add to previous draw Result Comment: ALL RESULTS MUST BE INTERPRETED WITH RESPECT TO BLOOD DRAWING ARTIFACTOR DILUTION ERROR OF ANTICOAGULANT AT THE TIME OF SAMPLING.Performed By: #### 83936, 46189 ####[facility] [facility].[address] Vital Signs Date TimeVital SignValuePerforming HphgziekmZwssaiza99-20-8433 13:45-0400 Diastolic blood wkngbadf08 mm[Hg]Radha Msoquera MD Work Phone: [facility]10-16-2025 13:45-0400Heart rate70 /minRadha Mosquera MD Work Phone: [facility]10-16-2025 13:45-0400 Respiratory rate18 /minRadha Mosquera MD Work Phone: [facility]10-16-2025 13:45-6295JzF9% (BldA) [Mass fraction]89 %Radha Mosquera MD Work Phone: [facility]10-16-2025 13:45-0400Systolic blood livdgtsj249 mm[Hg]Radha Mosquera MD Work Phone: [facility]10-16-2025 13:30-0400Body pufazndhogt77.6 [degF]Radha Mosquera MD Work Phone: [facility]10-16-2025 07:15-0400Body ajtsbo848.1 Monico Mosquera MD Work Phone: [facility]10-16-2025 07:15-0400Body mass index (BMI) [Ratio]38.77 kg/b8ColrnvkdipvwRadha Mosquera MD Work Phone: [facility]10-16-2025 07:15-0400Body .69 kgRadha Mosquera MD Work Phone: [facility]10-07-2022 13:02-0400Blood Pressure LocationMichael NILL [facility] Qvotefel10-24-9470 13:02-0400Diastolic blood wrtbmobt48 mm[Hg]Nathan NILL [facility] Qkougsal54-86-8179 13:02-0400Heart rate 66 /minMichael NILL [facility] Mxnxvapn35-02-0663 13:02-0400 Respiratory rate16 /minMichael NILL [facility] Mtmrixzz79-22-4887 13:02-0400Systolic blood tyyywkck158 mm[Hg]Nathan NILL [facility] Amxfyndz16-88-1347 17:00-0400Heart rate 92 /minStv [facility]06-20-2022 17:00-0400Respiratory rate24 /min Stv [facility]06-20-2022 17:00-9449YtQ0% (BldA) [Mass fraction]95 %Stv [facility]06-20-2022 15:45-0400Diastolic blood mm[Hg]Stv [facility]06-20-2022 15:45-0400Systolic blood pressure 97 mm[Hg]Stv [facility]06-20-2022 09:44-0400Body jwgevn791.1 cm Stv [facility]06-20-2022 09:44-0400Body mass index (BMI) [Ratio] 33.95 kg/m2Stv [facility]06-20-2022 09:44-0400Body temperature 97.9 [degF]Stv [facility]06-20-2022 09:44-0400Body eimhol43.53 kg Stv [facility] Encounters Encounter DateEncounter TypeCare ProviderFacilityStart: 09-10-2025 End: 21-64-9936vybmroqbkaSUOYPMDZTZLT [facility] Centertart: 09-10-2025 End: 64-58-5074Uhyvavdurj hospital visit by Dorita Mosquera MD Work Phone: [facility] Cardiac Cath/EP LabComment on above:Atrial fibrillation, unspecified type (HCC)Start: 08-18-2025 End: 84-25-3581bcdqjwbkcvZKOEBTEEAFWA [facility] Centertart: 08-18-2025 End: 40-87-8107Lumjriyjmj hospital visit by Dorita Mosquera MD Work Phone: [facility] CT ScanComment on above: Persistent atrial fibrillation (HCC)Start: 14-61-9640xvdlgxzethKDPYEDMDUGPJ [facility] Medical Centertart: 06-08-2025 End: 71-46-4289dwxkgfecaeMNUUYHDVK [facility] Work Phone: Start: 06-08-2025 End: 93-39-7745Cjmmwncq Abhijit Rojas MD-Lab [facility] [place] Work Phone: Start: 05-25-2025 End: 30-28-4356omgyafaufyUQUGAtrium Health Steele Creek HospitalStart: 05-25-2025 End: 05-09-1390Xjslrzepbh hospital visit by Ursula Musa MD Work Phone: [facility] Vascular LabComment on above: Bilateral carotid artery stenosisStart: 05-23-2024 End: 09-68-2234Zcigwbefgd hospital visit by Ursula Musa MD Work Phone: [facility] Vascular LabComment on above: Bilateral carotid artery stenosisStart: 28-22-3389Qmglmalmss and management of inpatientKettering Health Prebletart: 04-24-2024 End: 19-56-1224Aywvpeavyo and management of inpatientKettering Health Prebletart: 01-25-2024 End: 14-47-3544Ojavbemyje hospital visit by Ursula Jc MD Work Phone: [facility] Nuclear MedicineComment on above: ArrivedStart: 01-24-2024 End: 55-74-3405Qpnppofahd hospital visit by Ursula Jc MD Work Phone: [facility] Non-Invasive CardiologyComment on above:ArrivedStart: 03-26-2023 End: 35-83-6369vrbssrijsaZZ CARY HOY .Facility:V8Yskdu: 02-21-2023 End: 38-49-3913hjqvqrnrjpNU CARY HOY .Facility:W1Ctcoc: 02-01-2023 End: 34-92-0475zjhxpakdufKB CARY HOY .Facility:J4Llzuu: 12-01-2022 End: 39-56-5555ybhjvfhdhxKP CARY HOY .Facility:E5Eexad: 10-26-2022 End: 86-03-4204syleudunwsNSHKKCGGMercy Health – The Jewish Hospitaltart: 10-09-2022 End: 32-26-1611fsnmrzqalfFSNIGFDRMercy Health – The Jewish Hospitaltart: 10-04-2022 End: 71-64-0292wepoxemqkoXetzxqj R NILLFacility: ueStart: 09-01-2022 End: 37-62-2626otyamqhtowQeklugb R NILLFacility:[facility]villeevueStart: 09-01-2022 End: 42-55-0449Thwuezp encounter procedureMichael R NILL General Surgery Nill/Said Chin Start: 08-28-2022 End: 95-79-0339puczctsqwrWC CARY BENTON .Facility:A9Lofyp: 62-62-3360dmzykxkjjt Nathan R NILLFacility:[facility] DanvilleueStart: 29-99-3965cjofvlhprhVffxzuq R NILL [facility]ueStart: 05-15-2022 End: 35-85-8075Llxrxaopsz hospital visit by Tamara Box Annealer ASTKemar Cath LabComment on above:ArrivedStart: 04-27-2022 End: 86-68-9932Dqtdnhqxke and management of inpatientDR CARY BENTON .Facility: Start: 03-27-2022 End: 22-09-8239Unucmsgfce hospital visit by Sanket Benton MD Work Phone: mthz LaboratoryStart: 03-18-2022 End: 94-96-0522Sntqiypbth hospital visit by Sanket Benton MD Work Phone: mthz LaboratoryStart: 09-13-2017 End: 64-27-1318Qpozbwxouz and management of inpatientSCELSO WOMACK Facility:[facility] Procedures DateProcedureProcedure DetailPerforming ClinicianStart: 09-10-2025 End: 65-07-8853Tneme of haptoglobin quantitativeCharuchi Mosquera MD Work Phone: Start: 54-71-4593XYFUKPRT SPECIMENCharuchi Mosquera MD Work Phone: Start: 36-14-8403SRVPLYLSCUPTLYHLK PROCEDURE Radha Mosquera MD Work Phone: Start: 56-76-4850AKMMFXXM VASCULAR PROCEDURE Radha Mosquera MD Work Phone: Start: 22-26-4986Nikqboxlwfr time activated Radha Mosquera MD Work Phone: Start: 09-10-2025 End: 23-66-0457Nzlbsxmoqgo time activatedRadha Mosquera MD Work Phone: Start: 33-10-4276Atgmxyuv [Moles/volume] in Serum or PlasmaRadha Mosquera MD Work Phone: Start: 26-22-2581ZNDIFJEQSO W/GFR POINT OF CARE Radha Mosquera MD Work Phone: Start: 09-10-2025 End: 23-47-4402Tojv bld gluc mntr dev cleared fda spec home useRadha Mosquera MD Work Phone: Start: 01-01-9198Tgmwfuwdl [Moles/volume] in Serum or PlasmaRadha Mosquera MD Work Phone: Start: 45-10-8121Hinumo [Moles/volume] in Serum or PlasmaRadha Mosquera MD Work Phone: Start: 52-94-3075Ect routine ecg w/least 12 lds w/i&r Radha Mosquera MD Work Phone: Start: 60-85-0799Lyf hrt cornry art/bypass grfts contrst 3d postChandlee ann Mosquera MD Work Phone: Start: 66-64-0160UKMQNZMISR W/GFR POINT OF CARE Radha Mosquera MD Work Phone: Start: 79-26-6597Qcmbfn scan extracranial art compl bi studyLuna Musa MD Work Phone: start: 02-22-6320Hqmzqw scan extracranial art compl bi studyLuna Musa MD Work Phone: start: 87-77-3870Lwyuxnezem spect multiple studiesLuna Jc MD Work Phone: Start: 62-01-9404Owdbsgo of placement of stent for coronary artery diseaseH/O heart artery stentLuna Jc MD Work Phone: Start: 80-20-5881NsjmjzjhqwtroqocjlumlbxlEVSKUCRX DALY Start: 99-17-7633Kvbdhxjievm time activatedFabrice Ayala MD Work Phone: Start: 85-94-8330Jrlggpz catheterizationFabrice Ayala MD Work Phone: Start: 25-06-0109Vtungdwj [Moles/volume] in Serum or PlasmaFabrice Ayala MD Work Phone: Start: 87-01-7084STQPEPWFNZ W/GFR POINT OF CAREFabrice Ayala MD Work Phone: Start: 05-15-2022 End: 99-07-7661Ulnu bld gluc mntr dev cleared fda spec home useFabrice Ayala MD Work Phone: Start: 06-11-8101Aivuwhqpd [Moles/volume] in Serum or PlasmaFabrice Ayala MD Work Phone: Start: 67-12-3054Gemfmv [Moles/volume] in Serum or PlasmaFabrice Ayala MD Work Phone: Start: 79-69-1476Qoowp metabolic panel calcium total Americkar Lucy BRIONES Work Phone: Start: 30-90-5728Emqkd metabolic panel calcium total Amdamir Ayala MD Work Phone: Start: 72-06-9638Axxov panelFabrice Ayala MD Work Phone: Start: 27-03-0802Fviyucavo of stent in cardiac conduit Nathan NILL Start: 58-59-3528PXIRKLNP OF ABD SUBCU/FASCIA, OPEN APPROACHSTEPHANIE Dann WOMACKStart: 38-96-7061Pkcaxhfxh of stent in cardiac conduitMichael NILL Start: 13-06-3572Bufhtley sectionMichael NILL Start: 09-88-7162Mtzsloyh sectionMichael NILL Abscess of breast (disorder)Nathan NILL Amputation of toeMichael NILL Decompression of median nerveMichael NILL Large intestine excisionMichael NILL Lumbar spinal fusionMichael NILL Repair of incisional herniaMichael NILL Tonsillectomy and adenoidectomyMichael NILL Plan of Treatment DateCare ActivityDetailAuthorStart: 13-47-6421QMH test (Diabetes, CKD 3-4, OR last GFR 15-59)GFR test (Diabetes, CKD 3-4, OR last GFR 15-59)Mekhi BarkerTriHealth Good Samaritan HospitalStart: 06-02-2026 End: 68-73-9201Cokuwhi encounter dplvelavi56/08/2026 10:00 AM EDT Office Visit [facility] VASCULAR Part [address] [place] [address] Luna Musa MD [address] [place] [address] Dr [address] [place] [address] Bilateral Carotid artery stenosis; 1year follow up with Vascular duplexSELECT [facility] Part of [facility] ConnecticutComment on above:Bilateral Carotid artery stenosis; 1 year follow up with Vascular duplexStart: 09-10-2025 End: 16-11-2798Lmbvllvca to same day surgery mzvzxg7209/10/2025 7:30 AM EDT - 09/10/2025 10:30 AM EDT Surgery [facility] Cardiac Cath/EP Lab [address] [place] [address] Radha Mosquera MD [address] [address] moisés / Ablation A-fib w/anes / cartoCleveland Clinic [facility] General Cardiac Cath/EP LabComment on above:moisés / Ablation A-fib w/anes / cartoStart: 10-62-9377Pebdqxnjzr hospital visit by pshnazusj74/16/2025 7:30 AM EDT Hospital Encounter [facility] Cardiac Cath/EP Lab [facility] [place] [address] Radha Mosquera MD [address] [address] Atrial fibrillation, unspecified type (HCC)[facility] Cardiac Cath/EP Lab Comment on above:Atrial fibrillation, unspecified type (HCC)Start: 07-27-2025 COVID-19 Vaccine ( season)COVID-19 Vaccine ( season)[facility]: 69-93-4781Wdppfbxap vaccinationFlu vaccine (#1)[facility]: 06-12-2025 End: 58-80-6075Afoxboc encounter /18/2025 10:00 AM EDT Office Visit [place] [facility] [place] [address] [place] [address] Jeff Carlos DO [address] [address] 6 mo fuToledo Floorhand - MonroeComment on above:6 mo fuStart: 06-03-2025 End: 73-61-3920Ixkdjqr encounter vfceevjys34/09/2025 11:45 AM EDT Office Visit [facility] VASCULAR [address] [place] [phone] Luna Musa MD [address] [place] [phone] PATRICIA follow up-UltrasoundSELECT [facility] HospitalComment on above:PATRICIA follow up-UltrasoundStart: 75-79-3219LTE test (Diabetes, CKD 3-4, OR last GFR 15-59)GFR test (Diabetes, CKD 3-4, OR last GFR 15-59)[facility]Start: 35-77-1944MVV test (Diabetes, CKD 3-4, OR last GFR 15-59)GFR test (Diabetes, CKD 3-4, OR last GFR 15-59)[facility] Hospitalart: 11-05-2024 End: 27-50-7733Pkdvvzf encounter wzoxytaje57/11/2024 9:45 AM EST Office Visit [facility] VASCULAR [address] [place] [address] Luna Musa MD [address] [place] [address] Dr [address] [place] [phone] 6 mth carotid stentTriHealthComment on above:6 mth carotid stentStart: 04-64-9877Ilgcvrhfry A1c awitqrdfgroQ0C test (Diabetic or Prediabetic)[facility]: 09-16-2024 End: 28-16-5279Cipvpkk encounter /22/2024 11:30 AM EDT Office Visit [place] [facility] - [address] [address] Luna Jc MD [facility][note 2][address] [address] 6 MO F/UToledo Floorhand - TiffinComment on above:6 [place] F/UStart: 52-27-3001RMELU-19 Vaccine ( season)COVID-19 Vaccine ( season)[facility]: 13-55-0247Elcdfqhgf vaccinationFlu vaccine (Season Ended)BON [facility] Hospitalart: 89-44-0169Cybjgb Wellness Visit (Medicare)Annual Wellness Visit (Medicare)[facility]ITALStart: 06-28-2164Jbotmn Wellness Visit (Medicare)Annual Wellness Visit (Medicare)[facility] Hospitalart: 23-73-2932PXDBD-19 Vaccine ( season)COVID-19 Vaccine ()[facility] Hospitalart: 74-81-3805Kpysmxibz vaccinationFlu vaccine (#1)[facility] Hospitalart: 64-31-7194Hpttxzjhyk measurementCreatinine [facility] Hospitalart: 88-70-1407Lztce panelLipidsKeenan Private HospitalStart: 03-18-2023 Potassium [Moles/volume] in Serum or PlasmaPotassiumKeenan Private HospitalStart: 11-08-2022 End: 68-35-4685Lnojrlk encounter tnqrabjkt51/14/2022 Office Visit Vascular Surgery Luna Musa MD [address] [place] [address] [address] [place], [place] [facility] VASCULAR Part of [facility] HospitalStart: 59-41-4812Veujytuxh vaccinationFlu vaccine (Season Ended) [facility]: 87-20-8692Znkirgkrf for malignant neoplasm of breastBreast cancer screenKeenan Private HospitalStart: 74-80-0466Uuivrhpk Vaccine (1 of 2)Shingles Vaccine (1 of 2)[facility] HospitalStart: 63-64-0748Mwccurfrz for malignant neoplasm of colonKeenan Private HospitalStart: 17-68-9418Qzhftywqe for malignant neoplasm of breast Breast cancer screenBON [facility]OSPITALStart: 34-07-7491Wskwrycet for malignant neoplasm of cervixKeenan Private HospitalStart: 79-23-1121Okhsqskoq for malignant neoplasm of cervixPap smearSelect Medical [facility]: 84-86-1244PTnI/Tdap/Td vaccine (1 - Tdap)DTaP/Tdap/Td vaccine (1 - Tdap)[facility]: 06-43-7334Ksfjlhphk B vaccine (1 of 3 - 19+ 3-dose series)Hepatitis B vaccine (1 of 3 - 19+ 3-dose series)[facility]: 03-33-8806Ajqvwqrczdlo 50+ years Vaccine (1 of 2 - PCV)Pneumococcal 50+ years Vaccine (1 of 2 - PCV)[facility]: 42-22-1767Kcfzvmdz screeningDiabetic retinal examBON [facility]: 99-64-8849Bfakqyemx C screeningHepatitis C [facility]: 22-08-1123Hnhcs screening for proteinDiabetic Alb to Cr ratio (uACR) testBON [facility]: 99-53-1480NCQ screeningHIV screenSelect Medical [facility]: 22-63-0879Snmywctmrh ScreenDepression ScreenSelect Medical [facility]: 1975 Diabetic foot examinationDiabetic foot examBON [facility]: 62-28-0196Axhnc panelLipidsSelect Medical [facility]: 62-91-0720Ztxhxfwrnlwm 0-64 years Vaccine (1 - PCV)Pneumococcal 0-64 years Vaccine (1 - PCV)[facility] Hospitalart: 71-94-2257Gbaomkxpqept 0-64 years Vaccine (1 of 2 - PCV)Pneumococcal 0-64 years Vaccine (1 of 2 - PCV)[facility]art: 97-81-2727Kzbeacqiu B vaccine (1 of 3 - 3-dose series)Hepatitis B vaccine (1 of 3 - 3-dose series)[facility] End: 08-34-9247Yfadv metabolic 2000 panel - Serum or PlasmaBasic Metabolic Panel Lab Routine One Time for 1 Occurrences starting 05/15/2022 until 05/15/2022[facility] Work Phone: comment on above:One Time for 1 Occurrences starting 05/15/2022 until 05/15/2022 End: 90-34-4745BBG panel - Blood by Automated countCBC Lab Routine One Time for 1 Occurrences starting 05/15/2022 until 05/15/2022[facility] Work Phone: comment on above:One Time for 1 Occurrences starting 05/15/2022 until 05/15/2022 End: [id number] W Auto Differential panel - BloodCBC with Auto Differential Lab Routine One Time for 1 Occurrences starting 09/10/2025 until 09/10/2025 [employer] on above:One Time for 1 Occurrences starting 09/10/2025 until 09/10/2025 End: [id number] Metabolic Panel w/ Reflex to MGComprehensive Metabolic Panel w/ Reflex to MG Lab Routine One Time for 1 Occurrences starting 09/10/2025 until 09/10/2025 [facility] on above:One Time for 1 Occurrences starting 09/10/2025 until 09/10/2025 End: [id number] hrt cornry art/bypass grfts contrst 3d postCTA CORON EJECT FRAC WALL MOTION Imaging Routine Persistent atrial fibrillation (HCC) 1 Occurrencesstarting 08/18/2025 until 08/18/2025 [employer] on above:1 Occurrences starting 08/18/2025 until 08/18/2025EKG 12 LeadEKG 12 Lead ECG STAT 09/10/2025 6:35 AM [facility] PapriikaElectrophysiology procedureElectrophysiology procedure CV Electrophysiology Routine Atrial fibrillation, unspecified type (HCC) 09/10/2025 11:[facility] End: 49-22-6774ZgfrrytzynyGauepcbjely Lab Routine One Time for 1 Occurrences starting 09/10/2025 until 09/10/2025 [employer] on above:One Time for 1 Occurrences starting 09/10/2025 until 09/10/2025 End: 73-77-9954PQLVDTSBVY FREE, PLASMABon [employer] on above: One Time for 1 Occurrences starting 09/10/2025 until 09/10/2025 End: 09-49-2765EZCOZDYP PACU OXYGEN THERAPY PROTOCOLInitiate PACU Oxygen Therapy Protocol Respiratory Care Routine Continuous until discontinued starting 09/10/2025 Q.ME Phone: comment on above:Continuous until discontinued starting 09/10/2025Invasive vascular procedureInvasive vascular procedure CV Invasive Vascular Routine Atrial fibrillation, unspecified type (HCC) 09/10/2025 11:00 [facility] End: 36-28-4923Evqygke dehydrogenase [Enzymatic activity/volume] in Serum or PlasmaLactate Dehydrogenase Lab Routine One Time for 1 Occurrences starting 09/10/2025 until 09/10/2025 [employer] on above:One Time for 1 Occurrences starting 09/10/2025 until 09/10/2025Oxygen therapy [Minimum Data Set]Initiate Oxygen Therapy Protocol Respiratory Care Routine As Needed until discontinued starting 05/15/2022 [employer] Phone: Comment on above:As Needed until discontinued starting 05/15/2022xygen therapy [Minimum Data Set]Initiate Oxygen Therapy Protocol Respiratory Care Routine As Needed until discontinued starting 09/10/2025 [employer] on above:As Needed until discontinued starting 09/10/2025 End: 64-04-2120KVU CHEMISTRY (NA,K,ICA,GLU,CALC HCT/HGB,LACTATE,CREA,CL)POC CHEMISTRY (NA,K,ICA,GLU,CALC HCT/HGB,LACTATE,CREA,CL) Point of Care Testing STAT One Time for 1Occurrences starting 05/15/2022 until 05/15/2022 [employer] Phone: comment on above:One Time for 1 Occurrences starting 05/15/2022 until 05/15/2022 End: 65-67-6116MlxetsaxprkkpOmaxemadckzjr Lab Routine One Time for 1 Occurrences starting 09/10/2025 until 09/10/2025 [employer] on above:One Time for 1 Occurrences starting 09/10/2025 until 09/10/2025 End: 29-94-8310CtaibmrobvUmm [employer] on above:One Time for 1 Occurrences starting 09/10/2025 until 09/10/2025 Payers DatePayer CategoryPayerPoly [id number]-[id number] 2.16.840.1.480570.3.57[id number] 2.16.840.1.962722.3.57[id number] 2.16.840.1.812514.3.57[id number] 2.16.840.1.658080.3.57[id number] 2.16.840.1.336238.3.57[id number] 2.16.840.1.951653.3.57[id number] 2.16.840.1.703924.3.57[id number] 2.16.840.1.672632.3.57[id number] 2.16.840.1.765084.3.57[id number] 2.16.840.1.622214.3.57[id number] 2.16.840.1.220045.3.57[id number] 2.16.840.1.862651.3.57[id number] 2.16.840.1.649635.3.57[id number] 2.16.840.1.177557.3.579.2.175 [id number] 1960Private Health [id number] 1.2.840.568348.1.13.239.2.7.3.271785.315Unknown [id number] 2.16.840.1.864225.3.579.2.531 Social History DateTypeDetailFacilityStart: 11-30-2021 End: 72-11-8641Ttawdfm smoking status NHISSmokes tobacco dailyPremier HealthPlanbox Phone: History of tobacco useCigarette SmokerPremier HealthPlanbox Phone: start: 11-30-2021 End: 81-93-2530Tdmatpmhhh smoked current (pack per day) - Myrkbaef7SBR Colibri Heart ValveStart: 11-30-2021 End: 90-41-9289Nobdwui use and exposureSmokeless tobacco non-userPremier HealthPlanbox Phone: start: 11-30-2021 End: 78-86-1985Ttwdshz intakeLifetime non-drinker (finding)[facility] Phone: start: 81-38-3543Arl Assigned At BirthNot on fileRajant Corporation Work Phone: start: 97-73-9712Wohkrom smoking statusHeavy tobacco smoker (finding)[facility] BellevueTobacco smoking statusNeverGeneral Surgery BellevueStart: 01-07-2024 End: 85-67-7024Eim Assigned At BirthFemaleGeneral Surgery [place] Start: 53-12-2506Gijiodquj75VYB Colibri Heart Valve Start: 57-60-2453TxrHbohyj (finding)[facility] HospitalSaviokeTobacco smoking status NHISUnknown if ever smokedJ.W. [facility] Work Phone: Start: 68-88-9524Clg Assigned At UK Healthcaretart: 31-21-4261Phwivr identityIdentifies as female gender (finding)[facility] HospitalStart: 10-75-9059Pbeqxn orientation Heterosexual (finding)[facility] Functional Status HolcQajygklsimDiadzhNpikotft02-92-3645Vwsnctofwo StatusN/AGeneral Surgery [place] Clinical Notes 05-15-2022 to 09-10-2025 Note Date & ByndZubzOpotxipn66-69-5376 History of Present illness Narrative* Daniela Disla RN - 09/10/2025 2:20 PM EDT All discharge instructions reviewed, questions answered, paper signed and given copy. Patient discharged per ambulatory with daughter, d/c paperwork and belongings. * Daniela Disla RN - 09/10/2025 2:00 PM EDT Pt. Ambulated to BR, Rt. Groin and Lt. Radial puncture sites unchanged. * Daniela Disla RN - 09/10/2025 12:55 PM EDT Lt. Radial art line d/c per protocol. Manual pressure applied x 8 min. Pressure dressing applied. * Daniela Disla RN - 09/10/2025 11:[address] Velásquez to bedside to assess pt. Verbal orders received to not apply bi pap as pt. Is saturating 94% on 15L simple mask. Will monitor. * Daniela Disla RN - 09/10/2025 11:01 AM EDT Pt. Unable to maintain O2 saturation of >92% on 6L simple mask. O2 turned up to 15L to maintain O2 of >92%, Phoned respiratory and requested Bipap. Will monitor. * Daniela Disla RN - 09/10/2025 11:00 AM EDT Pt. Received post A-fib ablation, VS and assess as charted. Art line hooked up and zeroed. * Daniela Disla RN - 09/10/2025 7:44 AM EDT Pt. Taken to OR. * Daniela Disla RN - 09/10/2025 7:03 AM EDT Patient admitted, awaiting Dr. Mosquera to consent pt. Call light to reach with side railsup 2 of 2. B/L Groin clipped with screenplay writer and Halima RN present. Family at bedside with patient. History and physical complete. documented in this encounterBon [facility] Discharge instructions* Discharge Instructions* Daniela Disla RN - 09/10/2025 12:42 PM EDT Images from the original note were not included. Decrease metoprolol dose to 25 mg daily-take only half tablet per day Continue Eliquis 5 mg twice daily Continue your other medications without any change Continue dofetilide to 250 mcg 2 times daily for next 3 months. We will discuss in office during follow-up regarding continuation of therapy Follow-up with the nurse practitioner in 1 month after discharge Follow-up with me in office in 3 months Catheter ablation is a procedure that treats heart rhythm problems. These problems include atrial fibrillation, supraventricular tachycardia (SVT), atrial flutter, and ventricular tachycardia. Your heart should have a strong, steady beat. That beat is controlled by the heart's electrical system. Sometimes that system misfires. This causes a heartbeat that is too fast and isn't steady. Catheter ablation is a way to get into your heart and fix the problem. Ablation is not surgery. How is catheter ablation done? Your doctor inserts thin tubes called catheters into a blood vessel in your groin, arm, or neck. Then your doctor feeds them into the heart. Wires in the catheters help the doctor find the problem areas. Then he or she uses the wires to send energy to destroy the tiny areas of heart tissue that arecausing the problems. It may seem like a bad idea to destroy parts of your heart on purpose. But the areas that are destroyed are very tiny. They should not affect your heart's ability to do its job. You may be awake during the procedure. Or you may be asleep. The doctor will give you medicines to help you feel relaxed and to numb the areas where the catheters go in. You may feel a little uncomfortable, but you should not feel pain. This procedure usually takes 2 to 6 hours. In rare cases, it can take longer. You may stay overnight in the hospital. How long you stay in the hospital depends on the type of ablation you have. What can you expect after catheter ablation? Do not exercise hard or lift anything heavy for a week. You will probably be able to go back to work and to your normal routine in 1 or 2 days. You may have swelling, bruising, or a small lump around the site where the catheters went into yourbody. These should go away in 3 to 4 weeks. You may have to take some medicines for a while. Follow-up care is a jaimes part of your treatment and safety. Be sure to make and go to all appointments, and call your doctor if you are having problems. It's also a good idea to know your test resultsand keep a list of the medicines you take. Where can you learn more? Go to [email or web address] and sign in to your [employer] account. Enter N533 in the Search Health Information box to learn more about Learning About Catheter Ablation for Heart Problems. If you do not have an account, please click on the Sign Up Now link. [employer] Care instructions adapted under license by [employer]. This care instruction is for use with your licensed healthcare professional. If you have questions about amedical condition or this instruction, always ask your healthcare professional. [employer] disclaims any warranty or liability for your use of this information. Content Version: 11.0.372746; Current as of: December 22, 2015 Premature Heartbeat: Care Instructions Your Care Instructions A premature heartbeat happens when the heart beats earlier than it should. This briefly interrupts the heart's rhythm. You do not usually feel the early heartbeat, and the next beat is stronger. To many people, this feels like a skipped heartbeat or a flutter. If you have no heart problems, premature heartbeats are not a cause for concern. Most people have them at some time. They may happen more often if you drink a lot of caffeine or alcohol or are under stress. Usually, no cause for a premature heartbeat is found, and no treatment is needed. Follow-up care is a jaimes part of your treatment and safety. Be sure to make and go to all appointments, and call your doctor if you are having problems. It's also a good idea to know your test resultsand keep a list of the medicines you take. Discharge Instructions for ablations Home Care Ok to shower in AM. Discontinue band aid in AM. Do not apply further band aids. Keep clean, dry and open to air. No powder or lotions to site for one week Do not soak in a pool or tub and do not swim for one week. THROUGHOUT THE NEXT 4 DAYS CHECK YOUR GROIN SITE MAKING SURE THE SITE REMAINS SOFT CLEAN AND DRY. BRUISING IS OK LONG IT REMAINS SOFT If there is any bleeding at the catheter site, apply firm pressure with your hands until the bleeding stops. If bleeding continues after 3 minutes call 911. If there is any swelling or firm areas at your puncture site, this could be bleeding under the skin(hematoma), and if you have any concerns seek help immediately. If unsure it is swollen lie flat andcompare both right and left groin sites. Drink plenty of fluids after the test. This will flush the x-ray dye from your system. Return to your normal diet. The sedative will make you sleepy. Rest until the effects have worn off. Ask your doctor when you will be able to return to work. Avoid heavy lifting objects greater than 8 pounds which is about a full gallon of milk, physically demanding activities, and sexual activity for 5-7 days. Your activity will also depend upon where the catheter was inserted: Do not sit for long periods oftime. Try to change positions frequently. Medications If advised by your doctor, resume taking your normal medicines. Use acetaminophen (Tylenol) for pain relief. Do not take metformin (Glucophage) or glyburide and metformin (Glucovance) for 48 hours after the test. If you had to stop taking these medications before the procedure, ask your doctor when you can resume taking them: If youAnti-inflammatory drugs (eg, ibuprofen ) Blood thinners, such as warfarin (Coumadin) Clopidogrel (Plavix) If you are taking medicines, follow these general guidelines: Take your medicine as directed. Do not change the amount or the schedule. Do not stop taking them without talking to your doctor. Do not share them. Know what the results and side effects. Report them to your doctor. Some drugs can be dangerous when mixed. Talk to a doctor or pharmacist if you are taking more than one drug. This includes wboy-prh-lyjgoss medicine and herb or dietary supplements. Plan ahead for refills so you don't run out. Call Your Doctor If Any of the Following Occurs : Signs of infection, including fever and chills Redness, swelling, increasing pain, excessive bleeding, or any discharge from the catheter insertion site CALL 911 if you have symptoms including: [...] on your own. During sedation/analgesia your blood pressure,heart and breathing will be watched closely. After [...] procedure. Resume your medications unless otherwise instructed. documented in this encounterBon [facility]. [facility] History of Present illness Narrative* Carmen Still RN - 01/24/2024 8:30 AM EST Instructed on objectives and procedure of lexiscan/cardiolite stress test. documented in this encounter[facility]-14[facility]22 NoteNeurosurgery Consult Chief Complaint: Back and leg pain. History of Present Illness: Dorothy Faria is a 57 y.o. female who presents in referral from Dr. Benton for evaluation of back and leg pain. [...] status: Every Day Packs (more content not included)...[facility] 09-01-2022 NoteChief Complaint consultation for skin lesion HPI Staff 57 year old female presents on consultation from Dr. Benton for skin lesion left forearm. Reports 6 [...] swallowing difficulties, no hearing loss, no ear infection(s),no nose bleeds. Cardiovascular: normal blood pressure, no [...] in the office for definitive diagnosis and treatment;informed consent obtained. Follow-up No qualifying data available [...] sulfa drugs (Unknown) Social (more content not included)...[facility] HospitalComment on above:Result Comment: Electronically Signed By: KOSTA BRIONES, Nathan Carreon.shalonda\Date and Time Signed: 09/01/22 13:30 [id number] History of Present illness Narrative* Jen Reid RN - 05/15/2022 5:25 PM EDT All discharge instructions explained to patient and daughter. Emphasis in taking plavix and instructions to make 2 week follow up appointment. Papers signed and patient discharged per wheelchair withdaughter and belongings * Jen Reid RN - 05/15/2022 3:45 PM EDT Ambulated to bathroom and in halls. Gait steady.. * Jen Reid RN - 05/15/2022 12:45 PM EDT Received post procedure to [facility] to room 8. Assessment obtained. Restrictions reviewed with patient. Post procedure pathway initiated. Right radial site soft ,Vasc band dry and intact. No hematoma noted. Family at side. Patient without complaints. * Jen Reid RN - 05/15/2022 9:40 AM EDT Patient admitted, consent signed and questions answered. Patient ready for procedure. Call light toreach with side rails up 2 of 2. Bilateral groin hair clipped. Daughter at bedside with patient. History and physical complete. documented in this encounterB[facility] [employer] Work Phone: 1(750) 236-712706-20-2022 Hospital Discharge instructions* Instructions* Jen Reid RN - 05/15/2022 Images from [...] on your own. During sedation/analgesia your blood pressure,heart and breathing will be watched closely. After [...] a good idea to know your test resultsand keep a list of the medicines you take. Where can you learn more? Go to [email or web address] and sign in to your [employer] account. Enter C643 in the Search Health [...] PROCEDURE ON PROCESS FOR PT.S TO OBTAIN THESEMEDS [x] IS PT. ON STATINS IF NO WERE STATINS ORDERED AND SCRIPT GIVEN [x] WERE MEDS RECONCILED, WAS [facility] INFORMATION ON MEDS GIVEN TO PT. [x] PRINT DISCHARGE MED LIST CHECK AVS FOR CURRENT MEDS [x] WAS STENT CARD GIVEN TO PT. documented in this encounterTAUNTON STATE HOSPITALYandex [facility] Work Phone: evaluation + Plan note Future Appointments Appointment Date:09/20/2022 03:20:00 PM Scheduled Provider:Nathan BRAMBILA MD Location:[facility] Appointment Type: Procedure 30 General Surgery [place] evaluation note* Diagnosis Bilateral carotid artery stenosis Occlusion and stenosis of multiple and bilateral precerebral arteries without mention of cerebral infarction documented in this encounter [facility]ITALPictelaH[facility]* Diagnosis Bilateral carotid artery stenosis Occlusion and stenosis of multiple and bilateral precerebral arteries without mention of cerebral infarction documented in this encounter [facility]eronauticsH[facility] noteNo assessment information available [facility] Work Phone: Evaluation note* Diagnosis Atrial fibrillation, unspecified type (HCC) Persistent atrial fibrillation (HCC) Atrial fibrillation Atrial fibrillation, unspecified type (HCC) documented in this encounter [facility]icsH[facility] note* Diagnosis Atrial fibrillation, unspecified type (HCC) Typical atrial flutter (HCC) Atrial flutter Persistent atrial fibrillation (HCC) Atrial fibrillation Atrial fibrillation, unspecified type (HCC) documented in this encounter [facility]ics[facility] course Narrative No data available for this section General [facility] [place] [facility] Discharge instructions No data available for this section General Surgery [place] Progress note No data available for this section General Surgery [place] Reason for referral (narrative)No reason for referral information availableDayton Va Medical Center Work Phone: Reason for visit Narrative* Auth/CertSpecialty Diagnoses / ProceduresReferred By ContactReferred To Contact [facility]ITALPictelaDAYTON [facility] [address] [place] [address] Referral IDStatusAtiva MedicalStart DateExpiration DateVisits RequestedVisits [id number] [facility] PlanboxMER[facility] Work Phone: reason for visit Narrative* Imaging (Routine) - Pending ReviewSpecialtyDiagnoses / ProceduresReferred By ContactReferred To Contact Diagnoses Bilateral carotid artery stenosis Procedures Vascular duplex carotid bilateral Luna Musa MD [address] [place] [address] [place] [phone] Phone: tel: fax: Referral IDStatusReasonStart DateExpiration DateVisits RequestedVisits [id number] Review/ [facility] HospitalConnoshoer [facility] for visit Narrative* Imaging (Routine) - Open SpecialtyDiagnoses / ProceduresReferred By ContactReferred To ContactRadiology Diagnoses Persistent atrial fibrillation (HCC) Procedures CTA CORON EJECT FRAC WALL MOTION Radha Mosquera MD [address] [place] [address] Phone: tel: fax: Referral IDStatusReasonStart DateExpiration DateVisits RequestedVisits [id number]/[id number]/ [facility] HospitalVires AeronauticsUNC Health [facility] for visit Narrative* Auth/CertSpecialtyDiagnoses / ProceduresReferred By ContactReferred To Contact Diagnoses Atrial fibrillation, unspecified type (HCC) Procedures WA COMPRE EP EVAL ABLTJ ATR FIB PULM VEIN ISOLATION moisés / Ablation A-fib w/anes / carto Radha Mosquera MD [address] [place] [address] Phone: tel: fax: [facility] [address] [place] [address] Referral IDStatusReasonStart DateExpiration DateVisits RequestedVisits [id number] [facility] Summary Purpose Family History No Family History Records FoundNo Family History Records FoundNo Family History Records FoundNo Family History Records FoundNo Family History Records FoundNo Family History Records FoundNo Family History Records FoundNo Family History Records FoundNo Family History Records Found Advance Directives No Advanced Directives Records FoundDocuments on File TypeDate RecordedPatient RepresentativeExplanationACP-Advance DirectiveACP-Power of AttorneyTypeDate RecordedPatient RepresentativeExplanationACP-Advance DirectiveACP-Power of AttorneyCode StatusDate ActivatedDate InactivatedComments Full Code05/15/2022 9:19 AMCode StatusDate ActivatedDate InactivatedCommentsFull Code12/06/2023 7:47 AM12/06/2023 7:03 PMCode StatusDate ActivatedDate Inactivated CommentsFull Code10/17/2023 7:01 PM10/24/2023 7:09 PMFull Code05/15/2022 9:19 AM 05/16/2022 2:39 AMDate ActivatedDate InactivatedComments12/06/2023 7:47 AM 12/06/2023 7:03 PMDate ActivatedDate MeidynftkbbPhkhjyho42/22/2023 7:01 PM 10/24/2023 7:09 PMDate ActivatedDate InactivatedComments05/15/2022 9:19 AM 05/16/2022 2:39 AM Advance Directive Response Recorded Date/ Time Advance Directives No June 09 11:24am Date ActivatedDate DywnhqegfzwLsmfesdh47/16/2025 7:01 AMDate ActivatedDate InactivatedComments12/06/2023 7:47 AM12/06/2023 7:03 PMDate ActivatedDate BknrqdmsnydLvgmtiny38/22/2023 7:01 PM10/24/2023 7:09 PMDate ActivatedDate InactivatedComments05/15/2022 9:19 AM05/16/2022 2:39 AM Reason for Referral SpecialtyDiagnoses / ProceduresReferred By ContactReferred To Contact Diagnoses Bilateral carotid artery stenosis Procedures Vascular duplex carotid bilateral Luna Musa MD [address] [place] [address] [address] [facility] [place] [address] Referral IDStatusReasonStart DateExpiration DateVisits RequestedVisits [id number]/[id number]/[id number] Chief Complaint and Reason for Visit Chief Complaint Admit Date 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 June 08, 2025 9:50am Additional Source Comments INFORMATION SOURCE (unrecogn ized section and content) DATE CREATED AUTHOR 05/21/2018 [facility] DATE CREATED AUTHOR AUTHOR'S ORGANIZ ATION 08/28/2022 [facility] DATE CREATED AUTHOR AUTHOR'S ORGANIZ ATION 10/05/2022 [facility] DATE CREATED AUTHOR AUTHOR'S ORGANIZ ATION 10/27/2022 [facility] DATE CREATED AUTHOR AUTHOR'S ORGANIZ ATION 04/06/2023 [facility] DATE CREATED AUTHOR AUTHOR'S ORGANIZ ATION 04/26/2024 [facility] DATE CREATED AUTHOR AUTHOR'S ORGANIZ ATION 05/30/2025 [facility] DATE CREATED AUTHOR AUTHOR'S ORGANIZ ATION 06/19/2025 [facility] DATE CREATED AUTHOR AUTHOR'S ORGANIZ ATION 09/13/2025 [facility] Care Teams (unrecognized sec tion and content) Team MemberRelationshipSpecialtyStart DateEnd Date Cary Benton MD [address] [place] [phone] PCP - General01/31/16Team MemberRelationshipSpecialtyStart DateEnd Date Cary Benton MD [address] [place] [address] [phone] PCP - General01/31/16Team MemberRelationshipSpecialtyStart DateEnd Date Cary Benton MD [address] [place] [address] PCP - General01/31/16Team MemberRelationshipSpecialtyStart DateEnd Date Cary Benton MD [address] [place] [address] PCP - General01/31/16Team MemberRelationshipSpecialtyStart DateEnd Date Cary Benton MD [address] [place] [address] PCP - General01/31/16Team MemberRelationshipSpecialtyStart [place] [address] [place], [place] [phone] PCP - General01/31/16Team MemberRelationshipSpecialtyStart [place] [address] [place] [phone] PCP - General01/31/16 Team Status: Active Member Role Status Dates PHYSICIAN NO FAMILY Primary Care Provider Active Team Status: Inactive Member Role Status Dates Rojelio Rojas MD Attending Provider Active Start: June 08, 2025 End: June 08, 2025PHYSICIAN NO FAMILYPrimary Care ProviderActiveStart: June 08, 2025 End: June 08, 2025Team MemberRelationshipSpecialtyStart DateEnd Date Cary Benton MD [address] [place] [address] PCP - General01/31/16Team MemberRelationshipSpecialtyStart DateEnd Date Cary Benton MD [address] [place] [address] PCP - General01/31/16 Ordered Prescriptions (unrec ognized section and content) PrescriptionSigDispensedRefillsStart DateEnd Date clopidogrel (PLAVIX) 75 MG tablet Take 1 tablet by mouth daily 30 tablet rescriptionSigDispense QuantityRefillsLast FilledStart DateEnd Date metoprolol succinate (TOPROL XL) 50 MG extended release tablet Take 0.5 tablets by mouth in the morning and at bedtime 180 tablet Reason for Visit (unrecogniz ed section and content) SpecialtyDiagnoses / ProceduresReferred By ContactReferred To ContactRadiology Diagnoses H/O heart artery stent 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) Z95.5 (ICD-10-CM) - H/O heart artery stent Procedures Nuclear stress test with myocardial perfusion CHG MYOCARDIAL SPECT MULTIPLE STUDIES 93738 - CHG MYOCARDIAL SPECT MULTIPLE STUDIES Luna Jc MD [address] [address] Ref[facility] DateExpiration DateVisits RequestedVisits [id number] / Procedures Referred By ContactReferred To Contact Diagnoses Bilateral carotid artery stenosis Procedures Vascular duplex carotid bilateral Luna Musa MD [address] [place] [address] Ref[facility]Status[facility] DateExpiration DateVisits RequestedVisits [id number]/ Goals (unrecognized section and content) Goals may be documented in a n alternate section Scheduled Active and Recently Administ ered Medications (unrecognized section and content) Medication Order// sodium chloride flush 0.9 % injection 5-40 mL 5-40 mL, IntraVENous, EVERY 12 HOURS SCHEDULED (2 times per day), First dose on Nichelle 09/10/25 at 1130, Until Discontinued, For Line Patency: Peripheral IV = 5 mL; Midline or Central Line = 10 mL/lumen. If following IV push medication, administer flush at same rate as the IV push. Flush volume is determined by type of infusion therapy being given. For non-viscous solutions use: Peripheral IV = 5 mLMidline or Central Line = 10 mL/lumen For viscous solutions (i.e. blood components, parenteral nutrition, contrast media, or after obtaining blood sample) use: Peripheral IV = 10 mL Midline or Central Line = 20 mL/lumen, PACU only * 1130 (Due) * 2100 (Due) Medication Order/ 0.9 % sodium chloride infusion IntraVENous, at 75 mL/hr, CONTINUOUS, Starting on Nichelle 09/10/25 at 0730, Pre-Procedure(Cath) * 0735 (New Bag - Provider: ANTONIO Patino CRNA) * 0822 (New Bag - Provider: ANTONIO Patino CRNA) * 1105 (Stopped - Provider: ANTONIO Patino CRNA) Medication Order/ 0.9 % sodium chloride infusion IntraVENous, at 5-250 mL/hr, PRN, if patient receiving piggyback infusions and maintenance fluids are not ordered, Starting on Nichelle 09/10/25 at 1101, For piggyback infusion, administer at same rate aspiggyback for a total of 25 mL. Enter 25 mL into dose field and piggyback rate into rate field of order. If piggyback is infusing at a rate less than 100 mL/hr, enter 25 mL into dose field and 100 mL/hr into rate field of order., PACU only diphenhydrAMINE (BENADRYL) injection 12.5 mg 12.5 mg, IntraVENous, ONCE PRN, 1 dose, Starting on Nichelle 09/10/25 at 1101, Until Discontinued, Itching, IV Push at rate not to exceed 25 mg/min., PACU only droPERidol (INAPSINE) injection 0.625 mg 0.625 mg, IntraVENous, ONCE PRN, 1 dose, Starting on Nichelle 09/10/25 at 1101, Until Discontinued, Nausea, Initial antiemetic therapy., PACU only fentaNYL (SUBLIMAZE) injection 25 mcg 25 mcg, IntraVENous, EVERY 5 MIN PRN, 2 doses, Starting on Nichelle 09/10/25 at 1101, Until Discontinued, Pain Moderate (4-6) OR per patient request for pain score (7-10), For Phase I. If Phase II oral narcotics have been administered in the last 60 minutes, do not administer IV narcotics unless specifically approved by provider., PACU only hydrALAZINE (APRESOLINE) injection 10 mg(Linked Group 1) 10 mg, IntraVENous, EVERY 15 MIN PRN, 2 doses, Starting on Nichelle 09/10/25 at 1101, Until Discontinued, for SBP greater than 180 mmHg for 2 consecutive measurements taken from different sites, If heart rate is greater than 60 bpm, hold hydralazine and use labetalol if ordered, otherwise contact provider. Inform provider if SBP is still greater than 180 mmHg 10 minutes after second antihypertensive dose is administered., PACU only HYDROmorphone (DILAUDID) injection 0.5 mg 0.5 mg, IntraVENous, EVERY 5 MIN PRN, 2 doses, Starting on Nichelle 09/10/25 at 1101, Until Discontinued, Pain Severe (7-10), For Phase I. If Phase II oral narcotics have been administered in the last 60 minutes, do not administer IV narcotics unless specifically approved by provider., PACU only labetalol (NORMODYNE;TRANDATE) injection 10 mg(Linked Group 1) 10 mg, IntraVENous, EVERY 15 MIN PRN, 2 doses, Starting on Nichelle 09/10/25 at 1101, Until Discontinued, High Blood Pressure, for SBP greater than 180 mmHg for 2 consecutive measurements taken from different sites., If heart rate is 60 bpm or less hold labetalol and use hydralazine if ordered, otherwise contact provider. Inform provider if SBP is still greater than 180 mmHg, 10 minutes after second antihypertensive dose is administered., PACU only midazolam PF (VERSED) IntraVENous 2 mg 2 mg, IntraVENous, ONCE PRN, 1 dose, Starting on Nichelle 09/10/25 at 1101, Until Discontinued, Anxiety,PACU only naloxone 0.4 mg in 10 mL sodium chloride syringe IntraVENous, PRN, Opioid Reversal, Starting on Nichelle 09/10/25 at 1101, PRN if respiratory rate is less than 6/min and patient is difficult to arouse then notify physician STAT. Mix 9 mL of sodium chloride 0.9% with 0.4 mg (1 mL) of naloxone (NARCAN) in 10 mL syringe. (Note: dilution is 0.04 mg/mL) Give 0.08 mg (2 mL of special dilution), slow IV push, repeat up to 0.4 mg (10 mL) or until patient isresponsive to physical stimulation and respiratory rate is equal to or greater than 6 breaths/min. Continue to observe, if no response within 3 minutes of administration of 0.4 mg (10 mL) total, repeat dose (0.4 mg as administered previously). Concentration 0.04 mg/mL, PACU only nitroGLYCERIN injection (CANCELED) PRN, Starting on Nichelle 09/10/25 at 1022, Until Nichelle 09/10/25 at 1100, Intra-procedure(Cath) * 1022 (Given - Provider: Radha Mosquera MD - Comment: venous sheath) oxyCODONE (ROXICODONE) immediate release tablet 10 mg (COMPLETED)(Linked Group 2) 10 mg, Oral, PRN, 1 dose, Starting on Nichelle 09/10/25 at 1101, Until Nichelle 09/10/25 at 1320, Pain Severe(7-10), PHASE II, PACU only * 1320 (Given - Provider: Daniela Disla RN) prochlorperazine (COMPAZINE) injection 5 mg 5 mg, IntraVENous, ONCE PRN, 1 dose, Starting on Nichelle 09/10/25 at 1101, Until Discontinued, Nausea, Secondary antiemetic therapy., PACU only sodium chloride flush 0.9 % injection 5-40 mL 5-40 mL, IntraVENous, PRN, Starting on Nichelle 09/10/25 at 1101, Until Discontinued, Line Care, After every IV line use, For Line Patency: Peripheral IV = 5 mL; Midline or Central Line = 10 mL/lumen. If following IV push medication, administer flush at same rate as the IV push. Flush volume is determined by type of infusion therapy being given. For non-viscous solutions use: Peripheral IV = 5 mL Midline or Central Line = 10 mL/lumen For viscous solutions (i.e. blood components, parenteral nutrition, contrast media, or after obtaining blood sample) use: Peripheral IV = 10 mL Midline or Central Line = 20 mL/lumen, PACU only Medication Order/ Phenylephrine (JASON-SYNEPHRINE) 50-0.9 MG/250ML-% infusion 1 dose, Starting on Nichelle 09/10/25 at 0707, Until Nichelle 09/10/25 at 1914, Anibal Gamino: cabinet override * 0715 (Due) Order Group 1: labetalol (NORMODYNE;TRANDATE) injection 10 mgJump to med 10 mg, IntraVENous, EVERY 15 MIN PRN, 2 doses, Starting on Nichelle 09/10/25 at 1101, Until Discontinued, High Blood Pressure, for SBP greater than 180 mmHg for 2 consecutive measurements taken from different sites., If heart rate is 60 bpm or less hold labetalol and use hydralazine if ordered, otherwise contact provider. Inform provider if SBP is still greater than 180 mmHg, 10 minutes after second antihypertensive dose is administered., PACU only Or hydrALAZINE (APRESOLINE) injection 10 mgJump to med 10 mg, IntraVENous, EVERY 15 MIN PRN, 2 doses, Starting on Nichelle 09/10/25 at 1101, Until Discontinued, for SBP greater than 180 mmHg for 2 consecutive measurements taken from different sites, If heart rate is greater than 60 bpm, hold hydralazine and use labetalol if ordered, otherwise contact provider. Inform provider if SBP is still greater than 180 mmHg 10 minutes after second antihypertensive dose is administered., PACU only Group 2: oxyCODONE (ROXICODONE) immediate release tablet 5 mg (COMPLETED) 5 mg, Oral, PRN, 1 dose, Starting on Nichelle 09/10/25 at 1101, Until Nichelle 09/10/25 at 1320, Pain Moderate (4-6) OR per patient request for pain score (7-10), PHASE II, PACU only Or oxyCODONE (ROXICODONE) immediate release tablet 10 mg (COMPLETED)Jump to med 10 mg, Oral, PRN, 1 dose, Starting on Nichelle 09/10/25 at 1101, Until Nichelle 09/10/25 at 1320, Pain Severe(7-10), PHASE II, PACU only FOR RECORDS PERTAINING TO PATIENTS WHO ARE [...] BE BASED ON THE PRIMARY CLINICAL RECORDS. [facility] [employer] devices [facility]. provides no warranty or guarantee of the accuracy or completeness of information in this document.
[2025-10-26 10:00] LABS: Hematocrit 43.1 % (36.0-48.0); Hemoglobin 14.1 g/dL (12.0-16.0); Immature Granulocytes Abs Auto 0.05 10^3/uL (0.00-0.03); Immature Granulocytes Pct Auto 0.6 % (0.0-0.5); Lymphocytes Absolute Auto 1.8 10^3/uL (1.2-3.8); Mean Corpuscular HGB Conc 32.7 g/dL (29.9-35.2); Mean Corpuscular Hemoglobin 29.6 pg (26.7-34.0); Mean Corpuscular Volume 90.5 fL (81.0-99.0); Platelet Count 207 10^3/uL (150-450); Red Blood Count 4.76 10^6/uL (4.20-5.40); White Blood Count 8.8 10^3/uL (4.0-11.0)
[2025-10-26 10:30] LABS: Alanine Aminotransferase 33 U/L (14-59); Albumin Globulin Ratio 0.8; Albumin Level 3.1 g/dL (3.4-5.0); Alkaline Phosphatase 135 U/L (46-116); Anion Gap 14.0; Aspartate Amino Transferase 13 U/L (15-37); Blood Urea Nitrogen 30.0 mg/dL (7.0-18.0); Calcium 8.6 mg/dL (8.5-10.1); Carbon Dioxide 25.4 mmol/L (21.0-32.0); Chloride 104 mmol/L (98-107); Cholesterol 134 mg/dL (<=200); Estimated GFR (African America 39 (>=60 mL/min/1.73m^2); Estimated GFR (Non-African Ame 32 (>=60 mL/min/1.73m^2); Free T3 2.17 pg/mL (2.18-3.98); Globulin 3.9 g/dL; Glucose 141 mg/dL (74-106); HDL Cholesterol 31 mg/dL (40-60); Potassium 4.4 mmol/L (3.5-5.1); Sodium 139 mmol/L (136-145); Thyroid Stimulating Hormone 0.700 uIU/mL (0.358-3.740); Total Protein 7.0 g/dL (6.4-8.2); Triglycerides 129 mg/dL (<=150); VLDL CHOLESTEROL 25.8 mg/dL
[2025-10-26 10:34] LABS: Iron 74.0 ug/dL (50.0-170.0)
== END 2025-10-26 09:15 | disposition home or self-care (01) ==
LOC: LAB 09:16
PROVIDERS: PCP Family Medicine; Visit Provider Family Medicine
DX: L84 Corns and callosities (principal); E10.9 Type 1 diabetes mellitus without complications; I10 Essential (primary) hypertension; E66.01 Morbid (severe) obesity due to excess calories; E78.5 Hyperlipidemia, unspecified; Z12.12 Encounter for screening for malignant neoplasm of rectum; D64.9 Anemia, unspecified; E03.9 Hypothyroidism, unspecified; E55.9 Vitamin D deficiency, unspecified; D50.9 Iron deficiency anemia, unspecified
CPT/HCPCS: 36415; 80053; 80061; 82306; 83036; 83540; 84436; 84443; 84481; 85025

== ENCOUNTER 2025-10-29 10:00 | Outpatient (OUT) | payer MEDICARE, SELFPAY ==
--- OUTSIDE RECORDS SUMMARY | 2025-10-15 04:15 | XMS_ITS ---
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 Role Phone Roman Santos Primary Care Provider [phone] Allergies Allergen (clinical drug ingredient) Drug/Non Drug Allergy documented on EMR Reaction Allergy Type Onset Date Status Substance with sulfonamide s tructure and antibacterial mechanism of action (substance) Sulfa Antibiotics vomiting Drug Allergy Active Reason For Referral Diagnosis 1 Callus (L84) Referral Organization [facility] Medicine Referring Provider First Name Roman Referring Provider Last Name Danielle Referring Provider Speciality Family Med mady Referred Provider Milan Ross Referred Provider Specialty Podiatry Referral Priority Routine REASON FOR VISIT 6mon med check- signed CSA, handicap placard, spot on left foot- black spot Medications Medication SIG (Take, Route, Frequency, Duration) Notes Start Date End Date Status OneTouch Verio - USE ONE STRIP TO BARRY T FOUR TIMES A DAY DIRECTED; Duration: 87 days ActiveOne Touch Ultra Test Strips -Use one strip via meter Four times daily; Duration: 90 days03/08/2023ctivePen [place] 31G X 5 MM1 sq use 5 times daily to give insulin; Duration: 90 days03/22/2023ctiveNIFEdipine ER 30 MG1 tablet on an empty stomach Orally at bedtime; Duration: 30 days11/14/2024ctiveLift Chair - Use as tjmowznl91/04/2023ctiveJardiance 10 MG1 tablet Orally Once a day; Duration: 30 day(s)10/25/2023ctivePramipexole Dihydrochloride 1 MGTAKE ONE TABLET BY MOUTH ONCE NIGHTLY; Duration: 90 daysActiveMagnesium Oxide 400 MG1 tablet Orally twice daily; Duration: 30 daysActiveInsulin Aspart FlexPen 100 unit/mLINJECT UNDER THE SKIN DIRECTED: 4 UNITS IF SUGAR IS LESS THAN 120, 8 UNITS IF 120-200, AND 12 UNITS IF SUGAR IS GREATER THAN 200 (USING UP TO 36 UNITS DAILY); Duration: 25ActiveDULoxetine HCl 60 MG2 capsule Orally Once a day; Duration: 30 daysActiveEntresto 24-26 MGTAKE 1 TABLET BY MOUTH 2 TIMES A DAY; Duration: 30ActiveEliquis 5 MG1 tablet Orally Twice a dayActiveDofetilide 250 MCGTAKE 1 CAPSULE BY MOUTH 2 TIMES A DAY; Duration: 90ActiveToujeo SoloStar 300 UNIT/ML46 U Subcutaneous bid4ActiveAtorvastatin Calcium 80 MGTAKE 1 TABLET BY MOUTH DAILY; Duration: 90ActiveAlbuterol Sulfate HFA 108 (90 Base) MCG/ACT2 puff as needed Inhalation every 4 hrsActiveHYDROcodone-Acetaminophen 5- 325 MG 1 tablet Orally qhs; Duration: 30 days M54.16 5ActiveBumetanide 0.5 MG1 tablet Orally Once a day; Duration: 90 days ActivePlavix 75 MG1 tablet Orally Once a dayActiveSpironolactone 25 MG1 tablet Orally Once a day; Duration: 90 daysActiveTolterodine Tartrate ER 2 MGTAKE 1 CAPSULE BY MOUTH DAILY; Duration: 90ActiveSymbicort 160-4.5 MCG/ACT2 puffs Twice a dayActive Social History Tobacco Use: Social History Observation Description Date Details (start date - stop date) Current Smoker 11/26/1979 - NA Tobacco Use/Smoking Question Answer Notes Patient is a current smoker When did you start smoking?11/26/1979How often do you smoke cigarettes?every day How many cigarettes a day do you smoke?31 or moreAre you interested in quitting? Not ready to quit Problems Problem Type SNOMED Code ICD Code Onset Dates Problem Status W/U Status Risk Notes Problem Callus () Callus (L84) Activeconfirmed Vital Signs Weight 235.6 lbs 10/15/2025 Height 65 in 10/15/2025 Blood pressure systolic 120 mm Hg 10/15/20 25 Blood pressure diastolic 72 mm Hg 025 BMI 39.2 kg/m2 10/15/2025 Encounters Encounter Location Date Provider Diagnosis [facility] [address] [place] [address] 10/15/2025 Roman Santos Callus L84 ; Type 1 diabetes mellitus without complications E10.9 ; Hypertension I10 and Morbid obesity E66.01 Assessments Encounter Date Diagnosis (ICD Code) Assessment Notes Treatment Notes Treatment Clinical Notes Section Notes 10/15/2025 Callus (ICD-10 - L84) setting up iw Dr Ross10/15/2025Type 1 diabetes mellitus without complications (ICD-10 - E10.9)runnign 120- 100'10/15/2025Hypertension (ICD-10 - I10)10/15/2025Morbid obesity (ICD-10 - E66.01)disussed deit and exercis Plan Of Treatment Medication Medication Name Sig Start Date Stop Date Notes Pramipexole Dihydrochloride 1 MG TAKE ON E TABLET BY MOUTH ONCE NIGHTLY; Duration: 90 days HYDROcodone-Acetaminophen 5-325 MG1 tablet Orally qhs; Duration: 30 days 10/15/2025Treatment Notes Assessment Notes Callus setting up iw Dr El solis Type 1 diabetes mellitus without complic ations runnign 120- 100's Morbid obesity disussed deit and ex ercis Pending Test Test Name Order Date HEMOGLOBIN A1C (GLYCO) 10/15/2025 IRON, TOTAL 10/15/2025 LIPID PANEL (CHOL/TRIG/HDL/LDL) 10/15/20 25 VITAMIN D, 25 LEVEL (TOTAL) 10/15/2025 STOOL OCCULT BLOOD 10/15/2025 THYROID PANEL (T4/TSH/FREE T3) 5 MM screening mammo BI 10/15/2025 CMP (COMP MET BOB) w/eGFR CKD-EPI 2024 CBC WITH DIFF 10/15/2025 Referrals Referral Date Details 10/15/2025 10/15/2025, Milan gonzalez Next Appt Details Provider Name:Roman Santos, 09:45:00 AM, [address] [place], [address], Progress Notes * Ilsa FARIA MDOB:1964 (60 yo F)Acc No.[id number]:10/15/2025 Progress Note Patient: Ilsa PALACIOS :?Paul Santos ([facility]), MDDOB:1965???Age: 60 Y???Sex:FemaleDate:10/15/2025Phone:[phone]:[address], [address], [place], [id number] In:09:05 AM ESTCheck Out:10:06 AM EST Subjective: * Chief Complaints: * 6 mon med check- signed CSAHandicap placardSpot on left foot- black spot * HPI: ???General:? Left foot - large callus with bruising. * ROS: ???EENT:?hearing changes?denies.?visual changes?denies. non-healing mouth sores?denies.?swollen glands or neck lumps?denies.?hoarseness?denies.?sore throat?denies.?difficulty swallowing?denies.?nose bleeds?denies.?nasal congestion?denies.?ear ache?denies.?ear discharge denies.?ringing in ears?denies.?light sensitivity?denies.?eye pain?denies.?blurring?denies.?eye irritation?denies.?double vision?denies. vision loss?denies.?General/Constitutional:?Sweats:?Denies.?Fatigue?denies.?Sleep proble ms?denies.?Anorexia?denies.?Malaise?denies.?Weight loss?denies. Fatigue or Weakness?denies.?Fever or Chills?denies.?Cardiovascular:?Shortness of Breath w/lying flat?denies.?Lightheadedne ss/dizziness?denies.?Chest tightness/ heavy pressure?denies.?Swelling of legs, a nkles, or feet?denies.?Waking up with shortness of breath?denies.?Chest pain&#16 0;denies.?Palpitations?denies.?Weight gain?denies.?Respiratory:?Chronic or frequent cough?denies.?Coughing up blood&#1 60;denies.?Difficulty breathing?denies.?Productive cough?denies.?Snoring&#1 60;denies.?Shortness of breath that awakens from sleep (PND)?denies.?Chest pain? denies.?Sputum production?denies.?Wheezing?denies.?Musculoskeletal:?Joint pain?denies.?Joint Fluid?denies.?Backpain?denies.?Knee pain?denies.?Neck pain?denies.?Joint Stiffness?denies.?Muscle cramps?denies.?Weakness of muscles?denies.?Arthritis?denies.?Muscle aches?denies.?Pain in shoulder(s)?denies.?Swollen joints?denies.? * Active Problem List E10.9 Type 1 diabetes luis miguel itus without complications Modified On:03/05/2024U Status:cbbjssbkwB95.2Hypoglycemia Modified On:03/05/2024 Status:nqoasrtvpU94Ofrxuhvoeogj Modified On:03/05/2024 Status:svtwzrkhnC27.1Solitary pulmonary nodule Modified On:08/23/2023U Status:ajxzaxihiY06.898Other symptoms and signs involving the musculoskeletal system Modified On:10/29/2023U Status:lilcnqucnQ68.50Low back pain, unspecified Modified On:10/29/2023U Status:bdshqnjecW40.9Acute CHF Modified On:11/01/2023U Status:iebdcuerkZ31.9Diabetes mellitus Modified On:12/12/2023U Status:twjdcgcvhQ39.91Afib Modified On:11/01/2023U Status:hcqxmuszmI39.29Chronic pain Modified On:11/01/2023U Status:irvfycducY46SJ (high blood pressure) Modified On:11/01/2023U Status:gzbrfffmgQ31.0Tachycardia Modified On:11/06/2023/U Status:jesgdkpbsF92.10CAD (coronary artery disease) Modified On:11/07/2023U Status:pgrswkcrpU36.01Morbid obesity Modified On:11/07/2023/U Status:bkfifwbxbV43.0Paroxysmal atrial fibrillation Modified On:12/07/2023U Status:ymzfinvnjW26.21Carotid occlusion, right Modified On:05/01/2024/U Status:pkntaeklaS13.210Cigarette nicotine dependence without complication Modified On:09/17/2024U Status:adwmbpysuY10.89Bladder spasm Modified On:10/13/2024 Status:kioghzmaxK61.9Knee osteoarthritis Modified On:10/13/2024 Status:fwzzbqeihA73.81Restless leg Modified On:10/13/2024 Status:nayxcoffdC11.3Sebaceous cyst Modified On:04/21/2025U Status:ekcamfaabW19Jpcrky Modified On:10/15/2025U Status:confirmed * Medical History: * Surgical History: C HOLECYSTECTOMY Tubal Ligation Cardiac Stents exp lap/ small bowel resection Anterior Cervical Discectomy C5-6 Dr. Prabhakar 09/21/2017Right Carotid Stent placement AFib Ablation ancer spots on face Heart Ablation 2024 * Hospitalization/Major Diagno stic Procedure: P neumonia arotid stent 05/19 * Family History: F ather: . M other: . S on(s): alive, Mental Illness. D aughter(s): alive. 3 son(s) , 1 daughter(s) . . Patient is Adopted- family history unknown. * Social History: ???Tobacco Use:?Tobacco Use/Smoking?Patient is a?current smoker ?When did you start smoking??11/26/1979 ?How often do you smoke cigarettes??every day ?How many cigarettes a day do you smoke??31 or more ?Are you interested in quitting??Not ready to quit * Medications: T akingAlbuterol Sulfate HFA 108 (90 Base) MCG/ACT Aerosol Solution 2 puff as needed Inhalation every 4 hrs Atorvastatin Calcium 80 MG Tablet TAKE 1 TABLET BY MOUTH DAILY Bumetanide 0.5 MG Tablet 1 tablet Orally Once a day Dofetilide 250 MCG Capsule TAKE 1 CAPSULE BY MOUTH 2 TIMES A DAY DULoxetine HCl 60 MG Capsule Delayed Release Particles 2 capsule Orally Once a day Eliquis(Apixaban) 5 MG Tablet 1 tablet Orally Twice a day Entresto(Sacubitril-Valsartan) 24-26 MG Tablet TAKE 1 TABLET BY MOUTH 2 TIMES A DAY HYDROcodone-Acetaminophen 5-325 MG Tablet 1 tablet Orally qhs M54.16Insulin Aspart FlexPen 100 unit/mL Solution Pen-injector INJECT UNDER THE SKIN DIRECTED: 4 UNITS IF SUGAR IS LESS THAN 120, 8 UNITS IF 120-200, AND 12 UNITS IF SUGAR IS GREATER THAN 200 (USING UP TO 36 UNITS DAILY) Jardiance(Empagliflozin) 10 MG Tablet 1 tablet Orally Once a day Lift Chair - - Use as directed Magnesium Oxide 400 MG Tablet 1 tablet Orally twice daily NIFEdipine ER 30 MG Tablet Extended Release 24 Hour 1 tablet on an empty stomach Orally at bedtime One Touch Ultra Test Strips - Miscellaneous Use one strip via meter Four times daily OneTouch Verio(Glucose Blood) - Strip USE ONE STRIP TO TEST FOUR TIMES A DAY DIRECTED Pen [place] 31G X 5 MM Miscellaneous 1 sq use 5 times daily to give insulin Plavix(Clopidogrel Bisulfate) 75 MG Tablet 1 tablet Orally Once a day Pramipexole Dihydrochloride 0.5 MG Tablet TAKE ONE TABLET BY MOUTH ONCE NIGHTLY Spironolactone 25 MG Tablet 1 tablet Orally Once a day Symbicort(Budesonide-Formoterol Fumarate) 160-4.5 MCG/ACT Aerosol 2 puffs Twice a day Tolterodine Tartrate ER 2 MG Capsule Extended Release 24 Hour TAKE 1 CAPSULE BY MOUTH DAILY Toujeo SoloStar(Insulin Glargine (1 Unit Dial)) 300 UNIT/ML Solution Pen-injector 46 U Subcutaneous bid Taking Albuterol Sulfate HFA 108 (90 Base) MCG/ACT Aerosol Solution 2 puff as needed Inhalation every 4 hrs Taking Atorvastatin Calcium 80 MG Tablet TAKE 1 TABLET BY MOUTH DAILY Taking Bumetanide 0.5 MG Tablet 1 tablet Orally Once a day Taking Dofetilide 250 MCG Capsule TAKE 1 CAPSULE BY MOUTH 2 TIMES A DAY Taking DULoxetine HCl 60 MG Capsule Delayed Release Particles 2 capsule Orally Once a day Taking Eliquis(Apixaban) 5 MG Tablet 1 tablet Orally Twice a day Taking Entresto(Sacubitril-Valsartan) 24-26 MG Tablet TAKE 1 TABLET BY MOUTH 2 TIMES A DAY Taking HYDROcodone-Acetaminophen 5-325 MG Tablet 1 tablet Orally qhs M54.16Taking Insulin Aspart FlexPen 100 unit/mL Solution Pen-injector INJECT UNDER THE SKIN DIRECTED: 4 UNITS IF SUGAR IS LESS THAN 120, 8 UNITS IF 120-200, AND 12 UNITS IF SUGAR IS GREATER THAN 200 (USING UP TO 36 UNITS DAILY) Taking Jardiance(Empagliflozin) 10 MG Tablet 1 tablet Orally Once a day Taking Lift Chair - - Use as directed Taking Magnesium Oxide 400 MG Tablet 1 tablet Orally twice daily Taking NIFEdipine ER 30 MG Tablet Extended Release 24 Hour 1 tablet on an empty stomach Orally at bedtime Taking One Touch Ultra Test Strips - Miscellaneous Use one strip via meter Four times daily Taking OneTouch Verio(Glucose Blood) - Strip USE ONE STRIP TO TEST FOUR TIMES A DAY DIRECTED Taking Pen [place] 31G X 5 MM Miscellaneous 1 sq use 5 times daily to give insulin Taking Plavix(Clopidogrel Bisulfate) 75 MG Tablet 1 tablet Orally Once a day Taking Pramipexole Dihydrochloride 0.5 MG Tablet TAKE ONE TABLET BY MOUTH ONCE NIGHTLY Taking Spironolactone 25 MG Tablet 1 tablet Orally Once a day Taking Symbicort(Budesonide-Formoterol Fumarate) 160-4.5 MCG/ACT Aerosol 2 puffs Twice a day Taking Tolterodine Tartrate ER 2 MG Capsule Extended Release 24 Hour TAKE 1 CAPSULE BY MOUTH DAILY Taking Toujeo SoloStar(Insulin Glargine (1 Unit Dial)) 300 UNIT/ML Solution Pen-injector 46 U Subcutaneous bid DiscontinuedMiraLax(Polyethylene Glycol 3350) 17 GM/SCOOP Powder 1 scoop mixed with 8 ounces of fluid Orally Once a day Pantoprazole Sodium 40 MG Tablet Delayed Release 1 tablet Orally Once a day Potassium Chloride ER 10 MEQ Tablet Extended Release 3 tablet with food Orally Twice a day Medication List reviewed and reconciled with the patientDiscontinued MiraLax(Polyethylene Glycol 3350) 17 GM/SCOOP Powder 1 scoop mixed with 8 ounces of fluid Orally Once a day Discontinued Pantoprazole Sodium 40 MG Tablet Delayed Release 1 tablet Orally Once a day Discontinued Potassium Chloride ER 10 MEQ Tablet Extended Release 3 tablet with food Orally Twice a day Medication List reviewed and reconciled with the patient * Allergies: S ulfa Antibiotics: vomiting - Allergyno[Allergies Verified] Objective: * Vitals: W t:235.6lbs, Ht: 65 in, BP:120/72mm Hg, BMI:39.2Index, Ht-cm: 165.1 cm, Wt-k.87 kg. * Examination: ???Physical Exam: ?GENERAL:?well developed, well nourished, in no acute distress.?HEAD:?normocephalic/atraumatic.?EYES:?pupils equal, round and reactive to light, conjunctivae and sclerae normal.?EARS:?no deformity or lesion of external ear, canals and TM appear normal bilaterally, TM's intact, not inflamed with normal light reflex, hearing grossly normal to conversational speech.?NOSE:?no deformity, discharge, inflammation, or lesions. ?MOUTH:?mucous membranes moist, normal oropharynx and posterior pharynx without lesions or exudates, tongue normal, dentition normal.?NECK:?neck supple, no masses or palpable cervical nodes, trachea midline, thyroid without nodules, masses, tenderness, or enlargement.?CHEST:?no chest wall deformity, no chest wall tenderness. ?LUNGS:?normal respiratory effort and clear to auscultation, no wheezes, rales, or rhonchi, good air exchange.?CARDIO:?regular rate and rhythm, normal S1 and S2, nor murmur, rub, or gallop.?PULSES:?normal capillary refill.?ABDOMEN:?soft, non-distended, non-tender, no masses.?MUSCULOSKELETAL:?no deformity or scoliosis noted, normal range of motion, joints normal, no erythema, edema, effusion, or ecchymosis.?EXTREMITY:?no clubbing, cyanosis, edema, or deformity withnormal ROM in both upper and lower bilateral extremities.?NEUROLOGIC:?grossly normal.?SKIN:?no rashes, ulcerations, or suspicious lesions.?LYMPH NODES:?no cervical adenopathy, nodes normal.?MENTAL STATUS:?alert and oriented x3, normal mood and affect.? Assessment: * Assessment: 1.?Callus - L84 (Primary)???2.?Type 1 diabetes mellitus without complications - E10.9???3.?Hypertension - I10???4.?Morbid obesity - E66.01??? Plan: * Treatment: Refill Pramipexole Dihydrochloride Tablet, 1 MG, TAKE ONE TABLET BY MOUTH ONCE NIGHTLY, 90 days, 90, Refills 3;?Refill HYDROcodone-Acetaminophen Tablet, 5-325 MG, 1 tablet, Orally, qhs M54.16, 30 days, 30, Refills 0.?LAB: HEMOGLOBIN A1C (GLYCO) ?LAB: IRON, TOTAL ?LAB: LIPID PANEL (CHOL/TRIG/HDL/LDL) ?LAB: VITAMIN D, 25 LEVEL (TOTAL) ?LAB: STOOL OCCULT BLOOD ?LAB: THYROID PANEL (T4/TSH/FREE T3) ?LAB: CMP (COMP MET BOB) w/eGFR CKD-EPI ?LAB: CBC WITH DIFF ?Imaging: MM screening mammo BI Notes: setting up iw Dr Ross? Referral To:Milan Ross??Podiatry ?Reason: 2.?Type 1 diabetes mellitus without complications?LAB: HEMOGLOBIN A1C (GLYCO) ?LAB: IRON, TOTAL ?LAB: LIPID PANEL (CHOL/TRIG/HDL/LDL) ?LAB: VITAMIN D, 25 LEVEL (TOTAL) ?LAB: STOOL OCCULT BLOOD ?LAB: THYROID PANEL (T4/TSH/FREE T3) ?LAB: CMP (COMP MET BOB) w/eGFR CKD-EPI ?LAB: CBC WITH DIFF Notes: runnign 120- 100's??3.?Hypertension?LAB: HEMOGLOBIN A1C (GLYCO) ?LAB: IRON, TOTAL ?LAB: LIPID PANEL (CHOL/TRIG/HDL/LDL) ?LAB: VITAMIN D, 25 LEVEL (TOTAL) ?LAB: STOOL OCCULT BLOOD ?LAB: THYROID PANEL (T4/TSH/FREE T3) ?LAB: CMP (COMP MET BOB) w/eGFR CKD-EPI ?LAB: CBC WITH DIFF4.?Morbid obesity?LAB: HEMOGLOBIN A1C (GLYCO) ?LAB: IRON, TOTAL ?LAB: LIPID PANEL (CHOL/TRIG/HDL/LDL) ?LAB: VITAMIN D, 25 LEVEL (TOTAL) ?LAB: STOOL OCCULT BLOOD ?LAB: THYROID PANEL (T4/TSH/FREE T3) ?LAB: CMP (COMP MET BOB) w/eGFR CKD-EPI ?LAB: CBC WITH DIFF Notes: disussed deit and exercis?? * Procedure Codes: * * Sign off status: CompletedVisit Status:?CHK (Check Out) true * Provider: Alexei Santos (TTC)MD Date: 1 12/15/2024 Generated for Printing/Faxing/eTransmitting on:?10/29/2025 10:04 AM EST History and Physical Notes * HPI (History of Present Illness) CategorySub-CategoryDetailNotesCategory NotesGeneralLeft foot - large callus with bruising Examination CategorySub-CategoryDetailNotesCategory NotesPhysical ExamGENERAL:well developed, well nourished, in no acute distressHEAD:normocephalic/atraumatic EYES:pupils equal, round and reactive to light, conjunctivae and sclerae normal EARS:no deformity or lesion of external ear, canals and TM appear normal bilaterally, TM's intact, not inflamed with normal light reflex, hearing grossly normal to conversational speechNOSE:no deformity, discharge, inflammation, or lesionsMOUTH:mucous membranes moist, normal oropharynx and posterior pharynx without lesions or exudates, tonguenormal, dentition normalNECK:neck supple, no masses or palpable cervical nodes, trachea midline, thyroid without nodules, masses, tenderness, or enlargementCHEST:no chest wall deformity, no chest wall tendernessLUNGS:normal respiratory effort and clear to auscultation, no wheezes, rales, or rhonchi, good air exchangeCARDIO:regular rate and rhythm, normal S1 and S2, nor murmur, rub, or gallopPULSES:normal capillary refillABDOMEN:soft, non-distended, non-tender, no massesRECTAL:MUSCULOSKELETAL:no deformity or scoliosis noted, normal range of motion, joints normal, no erythema, edema, effusion, or ecchymosisEXTREMITY:no clubbing, cyanosis, edema, or deformity with normal ROM in both upper and lower bilateral extremitiesNEUROLOGIC:grossly normalSKIN:no rashes, ulcerations, or suspicious lesionsLYMPH NODES:no cervical adenopathy, nodes normalMENTAL STATUS:alert and oriented x3, normal mood and affect Consultation Request Notes Referral Date Referring Provider Referred Provider Not jarek 10/15/2025 Roman Santos Peter
--- NOTE | 2025-10-29 10:04 | MM_ITS ---
Patient Name: DOROTHY ADAMS MR#: [id number] : 1965 Exam Date: 10/29/2025 Ordering Doctor: DR CARY BENTON . RADIOLOGY REPORT PROCEDURE: MM TOMOSYNTHESIS SCREENING BI COMPARISON: MG MAMM SCREEN 3D [place] CAD, 06/08/2021. MG MAMM SCREEN [place] W CAD, 01/17/2019. MG MAMM [place] SCRN W CAD DIG, 10/27/2016. MG MAMM [place] DIAG W CAD DIG, 11/03/2013. INDICATIONS: Screening Calculator Name NCI Breast Cancer Risk Assessment Tool 5 Year Breast Cancer Risk 1.60% Lifetime Breast Cancer Risk 8.70% Personal Breast Cancer No Personal Ovarian Cancer No Treatments None Family Cancers None LOCATION: [facility] BREAST COMPOSITION: There are scattered areas of fibroglandular density. FINDINGS: DIAGNOSTIC CATEGORY 1--NEGATIVE. RIGHT BREAST: No significant suspicious finding. LEFT BREAST: No significant suspicious finding. RECOMMENDATIONS: ROUTINE MAMMOGRAM AND CLINICAL EVALUATION IN 12 MONTHS. Dictated by: Naif Rankin DO on 10/29/2025 at 15:12 Approved by: Naif Rankin DO on 10/29/2025 at 15:15
--- OUTSIDE RECORDS SUMMARY | 2025-10-29 10:04 | XMS_ITS | Clinical Summary ---
Author Organization [facility] Address [address], [address] [place] [address] Care Team Providers Care Hat Sizer Name Role Phone Paul Santos MD Primary Care Provider [phone] Allergies Active AllergyReactionsCriticalityNoted DateCommentsSulfa Yehwtojdqta57/05/2022 Medications MedicationSigDispense QuantityRefillsLast FilledStart DateEnd DateStatus atorvastatin [...] Active Problems ProblemNoted DateDiagnosed DateHistory of atrial rhalgee7312/06/2023OSA (obstructive sleep apnea)10/30/2023cute on chronic diastolic heart failure 10/30/2023aroxysmal atrial lniavcraggbf26/27/2023SSS (sick sinus syndrome) 10/22/2023trial fibrillation with RVR112/22/2022rimary gblypvrfilkq19/23/2023 Uncontrolled type 2 diabetes mellitus with jujdxehmydzrk28/23/2023Obesity, Class III, BMI 40-49.9 (morbid obesity)10/18/2023KI (acute kidney injury)10/18/2023 Acute heart failure with preserved ejection rillubew77/23/2023nemia, normocytic zttqysvqtxqs63/23/5018Jddsfkmdioza25/23/2023ongestive heart failure of unknown jbsjovin85/22/0330Wrlwn31/26/2023trial nhtwtuf2808/14/2023Mixed hyperlipidemia 08/14/2023H/O heart artery stent08/14/2023oronary artery disease of galena artery of galena heart with stable angina afwcwllz94/19/2023PAD (peripheral artery disease)08/14/2023 Encounters DateTypeDepartmentCare LybkAlqktzxwwyu53/14/2025 1:15 PM ESTOffice Visit [facility] - [place] [address], [address] [place] [address] Lily Manuel, 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 - 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 Essential hypertension (Primary Dx); Mixed hyperlipidemia; Heart failure with preserved ejection fraction (HFpEF), unspecified HF chronicity (HCC); Coronary artery disease involving galena coronary artery of galena heart without angina pectoris; PAF (paroxysmal atrial fibrillation) (HCC); History of cardiac ablation; Obesity (BMI 30-39.9)09/11/2025Telephone [facility] Lead Atg Developer - [place] [address] [place] [address], [place] [address] Radha Mosquera MD Appointment Request, Eiulejs1809/10/2025 7:35 AM EDTAnesthesia Event [facility] [address] [place] [address] Jj Gonzalez MD 09/10/2025 7:30 AM EDT - 09/10/2025 10:30 AM EDTSurgery [facility] [address] [place] [address] Radha Mosquera MD meenakshi / Ablation A-fib w/anes / carto09/10/2025 6:38 AM EDT - 09/10/2025 2:20 PM EDTHospital Encounter [facility] [address] [place] [address] Radha Mosquera MD Typical atrial flutter (HCC) (Primary Dx); Atrial fibrillation, unspecified type (HCC); Persistent atrial fibrillation (HCC) Discharge Disposition: Home or Self Care09/10/20254703Jcryaw19/23/2025 12:46 PM EDT - 08/20/2025 11:59 PM EDTHospital Encounter [facility] [address] [place] [address] Radha Mosquera MD Persistent atrial fibrillation (HCC) Discharge Disposition: Home or Self Carefrom Last 3 Months Social History Tobacco UseTypesPacks/DayYears UsedDateSmoking Tobacco: Every DayCigarettes Smokeless Tobacco: Never Tobacco Cessation:Ready to Q uit: Not Asked; Counseling Given: Not Answered Alcohol UseStandard Drinks/WeekCommentsNever0 (1 standard drink = 0.6 oz pure alcohol)Interpersonal Safety Domain Source: IP Abuse ScreeningAnswerDate RecordedPhysical fqmajQcfexx34/16/2025Verbal njmxcNdsmwa30/16/2025Emotional lbwnkGpgesz79/16/2025Financial yngpeTdhahn52/16/2025Sexual raxbfGsfvqj14/16/2025 EducationAnswerDate RecordedWhat is the highest level of school you have completed or the highest degree you have received?High school eaqmklgi53/28/2023 CommentsUnknownSex and Gender InformationValueDate RecordedSex Assigned at UtcnhQrjyof60/22/2025 10:22 AM EDTLegal RaeUexzst54/10/2013 4:19 PM ESTGender ByhlqivbBahwip35/22/2025 10:22 AM EDTSexual JpnbyprkkogDfpcpcvl77/22/2025 10:22 AM EDT Last Filed Vital Signs Vital SignReadingTime TakenCommentsBlood Icummnui601/7010/09/2025 1:09 PM EST Wmykx396810/09/2025 1:09 PM UZIZfykkfmniip00.9 ??C (96.6 ??F)09/10/2025 1:30 PM EDTRespiratory Ybxc848812/09/2024 1:09 PM ESTOxygen Ilrgjyshtx88%10/09/2025 1:09 PM ESTInhaled Oxygen Concentration--Vbwqaz532.1 kg (234 lb)10/09/2025 1:09 PM DWBEacllv275.1 cm (5' 5 )10/09/2025 1:09 PM ESTBody Mass Index38.9410/09/2025 1:09 PM EST Plan of Treatment DateTypeDepartmentCare Team (Latest Contact Info)Vdsrzjqrvsz12/14/2026 1:00 PM ESTOffice Visit [facility]atchie Lead Atg Developer - [place] [address], [address] [place] [address] Radha Mosquera MD [address] [place], [place] [id number] 3 month f/u006/02/2026 10:00 AM EDTOffice Visit [facility] Part [facility] [address] [place] [address] Lefty Santos MD [address] [place] [address] Bilateral Carotid artery stenosis; 1 year follow up with Vascular duplexHealth MaintenanceDue DateLast DoneCommentsDiabetic foot exam1976Depression Gnxaqz3901/19/1978HIV avmwje5701/19/1981Diabetic Alb to Cr ratio (uACR) test 1984Diabetic retinal exam1984Hepatitis C qwgbpe3701/19/1984 DTaP/Tdap/Td vaccine (1 - Tdap)1985Hepatitis B vaccine (1 of 3 - 19+ 3- dose series)1985Pneumococcal 50+ years Vaccine (1 of 2 - PCV)1985Pap smear1987Cervical cancer zcjfjz0201/19/1996HPV (without or with Pap) 1996Breast cancer bwtsbx1601/19/20063949Rtmysnmugmz74/24/2011Colorectal Cancer Awjuem2501/19/2011FIT/FOBT: Average risk2011Fecal-DNA (Cologuard): Average risk2011Sigmoidoscopy/CT ezwmyzcibqpd22/24/1761Rzpavb81/23/202304/ Annual Wellness Visit (Medicare)4A1C test (Diabetic or Prediabetic) /, 01/31/2016Flu vaccine (#1)COVID-19 Vaccine (4 - 2025-26 season)5112/21/2020, 02/08/2021, 01/18/2021GFR test (Diabetes, CKD 3-4, OR last GFR 15-59)61, 04/22/2024, 12/03/2023, Additional history existsShingles ckngviuKlbgzhctv82/12/2022, 10/21/2021Hepatitis A vaccineAged OutNo longer eligible based [...] complete this topic Procedures Procedure NamePriorityDate/TimeAssociated DiagnosisCommentsMICROSCOPIC KSLVVRVEAKFbakxge57/16/2025 2:11 PM EDT URINALYSISSunquest Label Print09/10/2025 2:11 PM EDT POC GLUCOSE PRNOCMGJMHSAeudxot45/16/2025 1:32 PM EDT PREVIOUS PNOXYOAEOIBF90/16/2025 12:48 PM EDTLACTATE CDJERZJVILSLKZTGM82/16/2025 12:48 PM EDT KRSJLAHGCMIOYTL32/16/2025 12:48 PM EDT COMPREHENSIVE METABOLIC PANEL W/ REFLEX TO MG FOR LOW KSTAT1 12:48 PM EDT ELECTROPHYSIOLOGY NQGONZFFZBkaozqe57/16/2025 11:00 AM EDT Atrial fibrillation, unspecified type (HCC) INVASIVE VASCULAR FPPPCDMCWXsdlbco42/16/2025 11:00 AM EDT Atrial fibrillation, unspecified type (HCC) HEMOGLOBIN FREE, PLASMASunquest Label Print09/10/2025 11:00 AM EDT CBC WITH AUTO DIFFERENTIALSunquest Label 09/10/2025 11:00 AM EDT RETICULOCYTESSunquest Label 09/10/2025 11:00 AM EDT ACTIVATED CLOTTING JIDQYgycpbk50/16/2025 10:26 AM EDT ACTIVATED CLOTTING NSAVJzebydv84/16/2025 10:00 AM EDT ACTIVATED CLOTTING CGDBLykscfb78/16/2025 9:35 AM EDT ACTIVATED CLOTTING FSYLCehyzen14/16/2025 9:10 AM EDT ACTIVATED CLOTTING ZBMUVmcncuu06/16/2025 8:45 AM EDT PLATELET COUNTStat Sunquest Label 09/10/2025 7:27 AM EDT POCT WTMHRBKZjzbpch42/16/2025 7:20 AM EDT UREA N (POC)Ezkzzcn1009/10/2025 7:20 AM EDT CREATININE W/GFR POINT OF AQXUVfxnuwy59/16/2025 7:20 AM EDT CHLORIDE (POC)Fhgammy7109/10/2025 7:20 AM EDT POTASSIUM (POC)Wvnduxb8209/10/2025 7:20 AM EDT SODIUM (POC)Zcykxmr7509/10/2025 7:20 AM EDT HGB/PWFIkbcuja17/16/2025 7:20 AM EDT EKG 12-ARFCIWUG37/16/2025 6:35 AM EDT CTA CORON EJECT FRAC WALL XEDENIQpevfrg66/23/2025 1:55 PM EDT Persistent atrial fibrillation (HCC) CREATININE W/GFR POINT OF FLCJLceekes26/23/2025 1:28 PM EDT HEMOGLOBIN Y9FHivvkmw60/23/2023 7:32 AM EST LIPID EYJFAArrxnqy81/23/2022 9:06 AM EDT from Last 3 Months [...] URINE ORDERABLESFinal ResultPerforming OrganizationAddressCity/State/ZIP Code Phone Number [facility] [place] [address], [facility] [phone] * (ABNORMAL) Urinalysis (09/10/2025 2:11 PM EDT)ComponentValueRef RangeTest MethodAnalysis TimePerformed AtPathologist SignatureColor, UAYellowYellow 09/10/2025 2:11 PM EDTMERCY LABORATORIESTurbidity UACloudy(A)Clear09/10/2025 2:11 PM EDTMERCY LABORATORIESGlucose, Ur3+(A)NEGATIVE mg/dL09/10/2025 2:11 PM EDTMERCY LABORATORIESBilirubin, CjxviLSZHPCQDTZZJUBOH08/16/2025 2:11 PM EDT [facility] LABORATORIESKetones, UrineNEGATIVENEGATIVE mg/dL09/10/2025 2:11 PM EDT [facility]USSafeLogic LABORATORIESSpecific [place], UA1.0201.003 - 1.7481909/10/2025 2:11 PM EDT [facility]USSafe[facility] LABORATORIESUrine HgbMODERATE(A)ZYMETXLM98/16/2025 2:11 PM EDTMERCY LABORATORIESpH, Urine5.55.0 - 8.010 2:11 PM EDTMERCY LABORATORIES Protein, UA2+(A)NEGATIVE mg/dL09/10/2025 2:11 PM EDTMERCY LABORATORIES Urobilinogen, UrineNormal0.0 - 1.0 EU/dL09/10/2025 2:11 PM EDTMERCY LABORATORIESNitrite, QqbxbYIEIRHXNZVFMOSET51/16/2025 2:11 PM EDTMERCY LABORATORIESLeukocyte Esterase, UrineMODERATE(A)MBZCDBYP05/16/2025 2:11 PM EDT [facility] LABORATORIESSpecimen (Source)Anatomical Location / LateralityCollection Method / VolumeCollection TimeReceived TimeUrine (Urine voided)09/10/2025 2:11 PM EDT1 2:11 PM EDT Narrative Authorizing ProviderResult TypeResult StatusChandramcaleb Mosquera MD URINE ORDERABLESFinal ResultPerforming OrganizationAddressCity/State/ZIP Code Phone Number [facility] [address] [place] [address], [facility] [phone] * (ABNORMAL) POC Glucose Fingerstick (09/10/2025 1:32 PM EDT)ComponentValueRef RangeTest MethodAnalysis TimePerformed AtPathologist SignaturePOC Jgliciv058 (H)65 - 105 mg/dL09/10/2025 1:32 PM EDTMERCY LABORATORIESSpecimen (Source) Anatomical Location / LateralityCollection Method / VolumeCollection Time Received Time09/10/2025 1:32 PM EDT1 1:41 PM EDT Narrative Authorizing ProviderResult TypeResult StatusCharuchi Mosquera MD POINT OF CARE TEST ORDERABLESFinal ResultPerforming OrganizationAddress City/State/ZIP CodePhone Number [address] [phone] * PREVIOUS SPECIMEN (09/10/2025 12:48 PM EDT)Specimen (Source)Anatomical Location / LateralityCollection Method / VolumeCollection TimeReceived Time 09/10/2025 12:48 PM EDT1 12:48 PM EDT Narrative Authorizing ProviderResult TypeResult StatusRadha Mosquera MD CHEMISTRY ORDERABLESFinal ResultPerforming OrganizationAddressSelect [facility]/State/[place] [address], [facility] [phone] * (ABNORMAL) Comprehensive Metabolic Panel w/ Reflex to MG (09/10/2025 12:48 PM EDT)ComponentValueRef RangeTest MethodAnalysis TimePerformed AtPathologist RhwjvofdhHbftti956365 - 145 mmol/L1 12:48 PM EDTMERCY LABORATORIES Potassium5.7(H)3.7 - 5.3 mmol/L1 12:48 PM EDTMERCY LABORATORIES Comment: Specimen hemolysis has exceeded the interference as defined by Christianne. Value may be falsely increased. Suggest recollection if clinically indicated. Viwdksxw803(H)98 - 107 mmol/L1 12:48 PM EDTMERCY RTJNWCKGPLBSOV04287 - 31 mmol/L1 12:48 PM EDTMERCY LABORATORIESAnion Gap8(L)9 - 16 mmol/L 09/10/2025 12:48 PM EDTMERCY WKQWXZKUZXCKUyqmjwt919(H)74 - 99 mg/dL09/10/2025 12:48 PM EDTMERCY AOMARLFJVZKNATT81(H)6 - 20 mg/dL09/10/2025 12:48 PM EDTMERCY LABORATORIESCreatinine1.6(H)0.6 - 0.9 mg/dL09/10/2025 12:48 PM EDTMERCY LABORATORIESEst, Glom Filt Rate37(L)>60 mL/min/1.37u78109/10/2025 12:48 PM EDT [facility] COL[facility]USSafeLogic LABORATORIESComment: ? These results are not intended [...] - 1.2 mg/dL09/10/2025 12:48 PM EDTMERCY LABORATORIESAlkaline Cwyvrhpjamu704(H)35 - 104 U/L1 12:48 PM EDTMERCY KUIBQXHYDTAPFMB9444 - 35 U/L1 12:48 PM EDTMERCY TFCMVIGVNJXANVH11(H)10 - 35 U/L1 12:48 PM EDTMERCY LABORATORIESComment: Specimen hemolysis has exceeded the interference as defined by Christianne. Value may be falsely increased. Suggest recollection if clinically indicated. Specimen (Source)Anatomical Location / LateralityCollection Method / Volume Collection TimeReceived Time09/10/2025 12:48 PM EDT1 12:48 PM EDT Narrative Authorizing ProviderResult TypeResult StatusChandramohnash Mosquera MD CHEMISTRY ORDERABLESFinal ResultPerforming OrganizationAddressCity/State/ZIP CodePhone Number [address] [phone] * (ABNORMAL) Lactate Dehydrogenase (09/10/2025 12:48 PM EDT)ComponentValueRef RangeTest MethodAnalysis TimePerformed AtPathologist FtuuyohkzBN876(H)135 - 214 U/L1 12:48 PM EDTMERCY LABORATORIESComment: Specimen hemolysis has exceeded the interference as defined by Christianne. Value may be falsely increased. Suggest recollection if clinically indicated. Specimen (Source)Anatomical Location / LateralityCollection Method / Volume Collection TimeReceived Time09/10/2025 12:48 PM EDT1 12:48 PM EDT Narrative Authorizing ProviderResult TypeResult StatusCharuchi Mosquera MD CHEMISTRY ORDERABLESFinal ResultPerforming OrganizationAddLower [facility]/ZIP CodePhone Number [address] [phone] * Haptoglobin (09/10/2025 12:48 PM EDT)ComponentValueRef RangeTest Method Analysis TimePerformed AtPathologist QfmqbrmkuBqimnxjhkvg64624 - 200 mg/dL 09/10/2025 12:48 PM EDTMERCY LABORATORIESComment: Specimen hemolysis has exceeded the interference as defined by Christianne. Value may be falsely decreased. Suggest recollection if clinically indicated. Specimen (Source)Anatomical Location / LateralityCollection Method / Volume Collection TimeReceived Time09/10/2025 12:48 PM EDT1 12:48 PM EDT Narrative Authorizing ProviderResult TypeResult StatusCharuchi Msoquera MD CHEMISTRY ORDERABLESFinal ResultPerforming [facility] DepartmentAddLower [facility]/ZIP CodePhone Number [address] [phone] * ULTRASOUND GUIDED VASCULAR ACCESS (09/10/2025 11:00 [...] of : 1965 Date of Procedure: 09/10/2025 Keatchie Lead Atg Developer Re Do Pulmonary Vein isolation with Pulse [...] direct visualization of needle under ultrasound. 8 St Lucian sheath, long 8Fr VersaCross sheath over the [...] left atrial append[place]. [place] [address] [place] heparin was administered. Activated clotting times [...] proprietary sequence using the PFA generator system (Urbasolar PFA System) to deliver biphasic, bipolar waveforms. [...] CONDITION: stable Radha Mosquera MD Cardiac Electrophysiology Keatchie Lead Atg Developer [facility]usoCard[facility] Authorizing ProviderResult TypeResult StatusChandlee ann Mosquera MDCV INVASIVE VASCULAR ORDERABLESFinal Result * ABLATION A-FIB W COMPLETE EP STUDY (09/10/2025 11:00 AM EDT)ComponentValueRef RangeTest MethodAnalysis TimePerformed AtPathologist SignatureBody Surface Area2.7t2OPNJ CV CPACS HEMOAnatomical RegionLateralityModalityX-Ray AngiographySpecimen (Source)Anatomical Location [...] of : 1965 Date of Procedure: 09/10/2025 Keatchie Lead Atg Developer Re Do Pulmonary Vein isolation with Pulse [...] direct visualization of needle under ultrasound. 8 St Lucian sheath, long 8Fr VersaCross sheath over the [...] left atrial appendage [place]bus. [place] [address] [place] heparin was administered. Activated clotting times [...] proprietary sequence using the PFA generator system (Urbasolar PFA System) to deliver biphasic, bipolar waveforms. [...] There was no evidence of dual AV etd physiology. The patient tolerated the procedure well [...] CONDITION: stable Radha Mosquera MD Cardiac Electrophysiology Keatchie Lead Atg Developer [facility]usoCard[facility] Authorizing ProviderResult TypeResult StatusChandlee ann Mosquera [facility] ELECTROPHYSIOLOGY ORDERABLESFinal Result * (ABNORMAL) CBC with Auto Differential (09/10/2025 11:00 AM EDT)ComponentValue Ref RangeTest MethodAnalysis TimePerformed AtPathologist PzvozjideECI17.2(H) 3.5 - 11.3 k/uL09/10/2025 11:00 AM EDTMERCY LABORATORIESRBC4.383.95 - 5.11 m/uL09/10/2025 11:00 AM EDTMERCY EGPZWDGRKKBSUylioiwqbw81.811.9 - 15.1 g/dL 09/10/2025 11:00 AM EDTMERCY XNXFKUZNKCUDBaczocyzft09.236.3 - 47.1 %09/10/2025 11:00 AM EDTMERCY OUVGUHVBNEJMYBQ13.882.6 - 102.9 fL09/10/2025 11:00 AM EDT [facility] TKJOBSHQXHMCMGD18.225.2 - 33.5 pg09/10/2025 11:00 AM EDTMERCY SLBZKXUMTEMMUZUY97.828.4 - 34.8 g/dL09/10/2025 11:00 AM EDSpin Transfer Technologies LABORATORIES RDW15.9(H)11.8 - 14.4 %09/10/2025 11:00 AM EDSpin Transfer Technologies LABORATORIESPlateletsSee Reflexed IPF Brnswq752 - 453 k/uL09/10/2025 11:00 AM EDSpin [facility] Technologies LABORATORIES Platelet, Ewifovwzdvjr689769 - 453 k/uL09/10/2025 11:00 AM EDSpin Transfer Technologies LABORATORIESPlatelet, Immature Fraction8.21.1 - 10.3 %09/10/2025 11:00 AM EDT [facility] LABORATORIESNRBC Automated0.00.0 per 100 WBC09/10/2025 11:00 AM EDSpin Transfer Technologies LABORATORIESRBC MorphologyANISOCYTOSIS VHQREUR4309/10/2025 11:00 AM EDVertica SystemsY LABORATORIESNeutrophils %72(H)36 - 65 %09/10/2025 11:00 AM EDSpin Transfer Technologies LABORATORIESLymphocytes %20(L)24 - 43 %09/10/2025 11:00 AM EDTMSwitch2HealthY LABORATORIESMonocytes %53 - 12 %09/10/2025 11:00 AM EDVertica SystemsY LABORATORIES Eosinophils %11 - 4 %09/10/2025 11:00 AM EDSpin Transfer Technologies LABORATORIESBasophils %10 - 2 %09/10/2025 11:00 AM EDSpin Transfer Technologies LABORATORIESImmature Granulocytes %1(H)0 % 09/10/2025 11:00 AM EDVertica SystemsY LABORATORIESNeutrophils Aogmfmhh41.90(H)1.50 - 8.10 k/uL09/10/2025 11:00 AM EDTMERCY LABORATORIESLymphocytes Absolute3.021.10 - 3.70 k/uL09/10/2025 11:00 AM EDTMExpreem LABORATORIESMonocytes Absolute0.780.10 - 1.20 k/uL09/10/2025 11:00 AM EDTMExpreem LABORATORIESEosinophils Absolute0.18 0.00 - 0.44 k/uL09/10/2025 11:00 AM EDTMERCSafeLogic LABORATORIESBasophils Absolute 0.110.00 - 0.20 k/uL09/10/2025 11:00 AM EDTMERCY LABORATORIESImmature Granulocytes Absolute0.160.00 - 0.30 k/uL09/10/2025 11:00 AM EDTMERCY LABORATORIESSpecimen (Source)Anatomical Location / LateralityCollection Method / VolumeCollection TimeReceived TimeBloodBLOOD SPECIMEN / Ljdpvdg7409/10/2025 11:00 AM EDT1 11:30 AM EDT Narrative Authorizing ProviderResult TypeResult StatusChandlee ann Mosquera MD HEMATOLOGY ORDERABLESFinal ResultPerforming OrganizationAddressCity/State/ZIP CodePhone Number [facility] [address] [place] [address] * (ABNORMAL) Reticulocytes (09/10/2025 11:00 AM EDT)ComponentValueRef RangeTest MethodAnalysis TimePerformed AtPathologist SignatureRetic Ct Pct2.6(H)0.5 - 1.9 %09/10/2025 11:00 AM EDTMERCY LABORATORIESAbsolute Retic #0.113(H)0.030 - 0.080 M/uL09/10/2025 11:00 AM EDTMERCY LABORATORIESImmature Retic Fract17.12.7 - 18.3 %09/10/2025 11:00 AM EDTMERCY LABORATORIESRetic Lxjqcifnwt48.628.2 - 35.7 pg09/10/2025 11:00 AM EDTMERCY LABORATORIESSpecimen (Source)Anatomical Location / LateralityCollection Method / VolumeCollection TimeReceived Time BloodBLOOD SPECIMEN / Duixwuf5609/10/2025 11:00 AM EDT1 11:30 AM EDT Narrative Authorizing ProviderResult TypeResult StatusChandlee ann Mosquera MD HEMATOLOGY ORDERABLESFinal ResultPerforming OrganizationAddressCity/State/ZIP CodePhone Number [facility] [address] [place] [address], [facility] [phone] * (ABNORMAL) HEMOGLOBIN FREE, PLASMA (09/10/2025 11:00 AM EDT)ComponentValueRef RangeTest MethodAnalysis TimePerformed AtPathologist SignatureHemoglobin, Free, Wfztjq39.9(H)0.0 - 9.7 mg/dL09/10/2025 11:00 AM EDTARUP LABORATORY Comment: (NOTE) Performed By: [employer] [address] [place] [address] Bridge Carpenter: Benedicto Howe MD, PhD CLIA Number: [id number] Specimen (Source)Anatomical Location / LateralityCollection Method / Volume Collection TimeReceived TimeBloodBLOOD SPECIMEN / Ysingoa6009/10/2025 11:00 AM EDT 09/10/2025 11:30 AM EDT Narrative Authorizing ProviderResult TypeResult StatusRadha Mosquera MD CHEMISTRY ORDERABLESFinal ResultPerforming OrganizationAddressCity/State/[place] [address], [facility] [phone] [phone] * (ABNORMAL) Activated clotting time (09/10/2025 10:26 AM EDT) Only the most recent of5 resultswithin the time period is included. ComponentValueRef RangeTest MethodAnalysis TimePerformed AtPathologist Signature Activated Clotting Zhql427(H)79 - 149 sec09/10/2025 10:26 AM EDTMERCY LABORATORIESSpecimen (Source)Anatomical Location / LateralityCollection Method / VolumeCollection TimeReceived Time09/10/2025 10:26 AM EDT1 10:29 AM EDT Narrative Authorizing ProviderResult TypeResult StatusRadha Mosquera MD HEMATOLOGY ORDERABLESFinal ResultPerforming OrganizationAddressCity/State/[place] [address], [facility] [phone] * Platelet Count (09/10/2025 7:27 AM EDT)ComponentValueRef RangeTest Method Analysis TimePerformed AtPathologist QjujjfrmjHrltbftzy871428 - 453 k/uL 09/10/2025 7:27 AM EDTMERCY LABORATORIESSpecimen (Source)Anatomical Location / LateralityCollection Method / VolumeCollection TimeReceived TimeBloodBLOOD SPECIMEN / Fxqqmbo2809/10/2025 7:27 AM EDT1 7:27 AM EDT Narrative Authorizing ProviderResult TypeResult StatusCarriendlee ann Mosquera MD HEMATOLOGY ORDERABLESFinal ResultPerforming OrganizationAddressCi/State/ZIP CodePhone Number [facility] [place] [address], [facility] [phone] * (ABNORMAL) Creatinine W/GFR Point of Care (09/10/2025 7:20 AM EDT) Only the most recent of2 resultswithin the time period is included. ComponentValueRef RangeTest MethodAnalysis TimePerformed AtPathologist Signature POC Creatinine2.1(H)0.51 - 1.19 mg/dL09/10/2025 7:20 AM EDTMERCY LABORATORIES eGFR, POC27(L)>60 mL/min/1.95b61009/10/2025 7:20 AM EDTMERCY LABORATORIESComment: ? These results [...] TEST ORDERABLESFinal ResultPerforming OrganizationAddress City/State/ZIP CodePhone Number [facility] [address] [place] [address], [facility] [phone] * CHLORIDE (POC) (09/10/2025 7:20 AM EDT)ComponentValueRef RangeTest Method Analysis TimePerformed AtPathologist SignaturePOC Wpyysfgq57302 - 107 mmol/L 09/10/2025 7:20 AM EDTMERCY LABORATORIESSpecimen (Source)Anatomical Location / LateralityCollection Method / VolumeCollection TimeReceived Time09/10/2025 7:20 AM EDT1 7:28 AM EDT Narrative Authorizing ProviderResult TypeResult StatusRadha Mosquera MD CHEMISTRY ORDERABLESFinal ResultPerforming OrganizationAddChester County Hospitalty/State/ZIP CodePhone Number [address] [phone] * SODIUM (POC) (09/10/2025 7:20 AM EDT)ComponentValueRef RangeTest Method Analysis TimePerformed AtPathologist SignaturePOC Teqhzv035803 - 146 mmol/L 09/10/2025 7:20 AM EDTMERCY LABORATORIESSpecimen (Source)Anatomical Location / LateralityCollection Method / VolumeCollection TimeReceived Time09/10/2025 7:20 AM EDT1 7:28 AM EDT Narrative Authorizing ProviderResult TypeResult StatusRadha Mosquera MD CHEMISTRY ORDERABLESFinal ResultPerforming OrganizationAddChester County Hospitalty/State/ZIP CodePhone Number [address] [phone] * (ABNORMAL) POTASSIUM (POC) (09/10/2025 7:20 AM EDT)ComponentValueRef RangeTest MethodAnalysis TimePerformed AtPathologist SignaturePOC Potassium4.9(H)3.5 - 4.5 mmol/L1 7:20 AM EDTMERCY LABORATORIESSpecimen (Source)Anatomical Location / LateralityCollection Method / VolumeCollection TimeReceived Time 09/10/2025 7:20 AM EDT1 7:28 AM EDT Narrative Authorizing ProviderResult TypeResult StatusRadha Mosquera MD CHEMISTRY ORDERABLESFinal ResultPerforming OrganizationAddChester County Hospitalty/State/[place] [address], [facility] [phone] * (ABNORMAL) POCT urea (BUN) (09/10/2025 7:20 AM EDT)ComponentValueRef RangeTest MethodAnalysis TimePerformed AtPathologist SignaturePOC BUN33(H)8 - 26 mg/dL 09/10/2025 7:20 AM EDTMERCY LABORATORIESSpecimen (Source)Anatomical Location / LateralityCollection Method / VolumeCollection TimeReceived Time09/10/2025 7:20 AM EDT1 7:28 AM EDT Narrative Authorizing ProviderResult TypeResult StatusRadha Mosquera MD POINT OF CARE TEST ORDERABLESFinal ResultPerforming OrganizationAddress City/State/[place] [address], [facility] [phone] * Hemoglobin and hematocrit, blood (09/10/2025 7:20 AM EDT)ComponentValueRef RangeTest MethodAnalysis TimePerformed AtPathologist SignaturePOC Hemoglobin (calc)14.512.0 - 16.0 g/dL09/10/2025 7:20 AM EDTMERCY LABORATORIESPOC Nvcgukqfra8511 - 46 %09/10/2025 7:20 AM EDTMERCY LABORATORIESSpecimen (Source) Anatomical Location / LateralityCollection Method / VolumeCollection Time Received Time09/10/2025 7:20 AM EDT1 7:28 AM EDT Narrative Authorizing ProviderResult TypeResult StatusRadha Mosquera MD HEMATOLOGY ORDERABLESFinal ResultPerforming OrganizationAddressSelect [facility]/State/[place] [address], [facility] [phone] * (ABNORMAL) POCT Glucose (09/10/2025 7:20 AM EDT)ComponentValueRef RangeTest MethodAnalysis TimePerformed AtPathologist SignaturePOC Rrhutgt766(H)74 - 100 mg/dL09/10/2025 7:20 AM EDTMERCY LABORATORIESSpecimen (Source)Anatomical Location / LateralityCollection Method / VolumeCollection TimeReceived Time 09/10/2025 7:20 AM EDT1 7:28 AM EDT Narrative Authorizing ProviderResult TypeResult Idris Mosquera MD POINT OF CARE TEST ORDERABLESFinal ResultPerforming OrganizationAddress City/State/ZIP CodePhone Number [place], [place] [address] [phone] * EKG 12 Lead (09/10/2025 6:35 AM EDT)ComponentValueRef RangeTest MethodAnalysis TimePerformed AtPathologist SignatureVentricular Rdba38XZDBRBP STV MUSEAtrial Ivef48TYAIMOW STV MUSEP-R Wplwljrz567wfJAJC STV MUSEQRS Zscquxnq91pmQWSY STV MUSEQ-T Hsrjjqkh049cyCIFT STV MUSEQTc Calculation (Bazett)485msMHPN STV MUSEP [place]-23degreesMHPN STV MUSER [place]-68degreesMHPN STV MUSET Vfdw81dxfvsukKBNG STV MUSESpecimen (Source)Anatomical Location / LateralityCollection Method [...] ??Trunk length 21mm. Right inferior pulmonary vein: Nqpout41 x 22mm. ??Trunk length 12 mm. Left superior pulmonary vein: Swdpel68 x 19mm. ??Trunk length 22 mm. Left inferior pulmonary vein: Fibcry09 x 12mm. ??Trunk length 14 mm. LVEF [...] Trunk length 21mm. Right inferior pulmonary vein: Axveio30 x 22mm. Trunk length 12 mm. Left superior pulmonary vein: Rvrbky75 x 19mm. Trunk length 22 mm. Left inferior pulmonary vein: Pdixer14 x 12mm. Trunk length 14 mm. LVEF [...] 6.0 %10/18/2023 7:32 AM ESTMERCY LABORATORIESEstimated Avg Vpbuwuv910yy/dL 10/18/2023 7:32 AM ESTMERCY LABORATORIESComment: The ADA and AACC recommend providing the estimated average glucose result to permit better patient understanding of their HBA1c result. Specimen (Source)Anatomical Location / LateralityCollection Method / Volume Collection TimeReceived Time10/18/2023 7:32 AM EST10/18/2023 7:35 AM EST Narrative Authorizing ProviderResult TypeResult StatusSabrina Joaquin RETAIL SHIFT SUPERVISOR - NPCHEMISTRY ORDERABLESFinal ResultPerforming OrganizationAddressCity/State/ZIP CodePhone Number wutaboutF [facility] [address] [phone] * (ABNORMAL) Lipid Panel (03/18/2022 9:06 AM EDT)ComponentValueRef RangeTest MethodAnalysis TimePerformed AtPathologist HcrfwdkfsYfrouizypvj058<200 mg/dL 03/18/2022 9:06 AM EDTMERCY LABORATORIESComment: Cholesterol Guidelines: <200 Desirable 200-240 ??Borderline >240 Undesirable HDL31(L)>40 mg/dL03/18/2022 9:06 AM EDTMERCY LABORATORIESComment: HDL Guidelines: <40 Undesirable 40-59 ?Borderline >59 Desirable LDL Cnaaaywcued884 - 130 mg/dL03/18/2022 9:06 AM EDTMERCY LABORATORIESComment: [...] AM EDT Narrative Authorizing ProviderResult TypeResult StatusAmeer [facility] MDCHEMISTRY ORDERABLES Final ResultPerforming OrganizationAddressCity/State/ZIP CodePhone Number [facility] [address] [place] [address], [facility] [phone] [facility] [address] [place] [address], [facility] [phone] from Last 3 Months or Most Recently Relevant to Health Maintenance Insurance * Guarantor: Ilsa Faria TypeRelation to PatientDate of BirthPhone Billing AddressPersonal/AdnyzeTkqg1965 [address] [address] * Guarantor: Ilsa Faria TypeRelation to PatientDate of BirthPhone Billing AddressPersonal/MticelEryh[address] [address] Advance Directives * Full Code (Latest Code Status on File) Date ActivatedDate EvotashrhdoPnchasgv76/16/2025 7:01 AM09/10/2025 4:24 PM * Full Code Date ActivatedDate InactivatedComments12/06/2023 7:47 AM12/06/2023 7:03 PM * Full Code Date ActivatedDate DxtivbqwzsuTwvaaqfi50/22/2023 7:01 PM10/24/2023 7:09 PM * Full Code Date ActivatedDate InactivatedComments05/15/2022 9:19 AM05/16/2022 2:39 AM Care Teams Team MemberRelationshipSpecialtyStart DateEnd Date Paul Santos MD [address] [place] [address] [facility] - General01/31/16
--- OUTSIDE RECORDS SUMMARY | 2025-10-29 10:04 | XMS_ITS | Patient Health Record ---
Author Organization [facility] [place] Address [address] [place] [address] Care Team Providers Care Computer Operations Technician Name Role Phone Roman Santos Primary Care Provider Allergies Allergen (clinical drug ingredient) Drug/Non Drug Allergy documented on EMR Reaction Allergy Type Onset Date Status Substance with sulfonamide s tructure and antibacterial mechanism of action (substance) Sulfa Antibiotics vomiting Drug Allergy Active Results Component Value Reference Range Notes CBC AUTO DIFF Reviewed date:10/26/2025 01:45:33 PM Interpretation: Performing Lab: Notes/Report: [facility] , White Blood Count 8.8 4.0-11.0 10 3/uL Red Blood Count4.764.20-5.40 10 6/sJGgqbevgmpa39.112.0-16.0 g/qBNlamnywhts87.1 36.0-48.0 %Mean Corpuscular Jpdzaz25.581.0-99.0 fLMean Corpuscular Hemoglobin 29.626.7-34.0 pgMean Corpuscular HGB Conc32.729.9-35.2 g/dLRed Cell Distribution Width14.611.0-15.0 %Platelet Seugq337843-135 10 3/uLMean Platelet Yubmbw50.09.5- 13.5 fLNeutrophils Percent Auto68.943.0-75.0 %Lymphocytes Percent Auto20.120.5- 60.0 %Monocytes Percent Auto8.31.7-12.0 %Eosinophils Percent Auto1.30.9-7.0 % Basophils Percent Auto0.80.2-2.0 %Immature Granulocytes Pct Auto0.60.0-0.5 % Neutrophils Absolute Auto6.11.4-6.5 10 3/uLLymphocytes Absolute Auto1.81.2-3.8 10 3/uLMonocytes Absolute Auto0.70.3-0.8 10 3/uLEosinophils Absolute Auto0.10.0- 0.7 10 3/uLBasophils Absolute Auto0.10.0-0.1 10 3/uLImmature Granulocytes Abs Auto0.050.00-0.03 10 3/uLPerforming Lab:see noteML - [place] [facility] FREE T3 Reviewed date:10/26/2025 01:45:33 PM Interpretation: Performing Lab: Notes/Report: [facility] ,Free T32.172.18-3.98 pg/mLPerforming Lab:see note - [place] [facility] GLYCOHEMOGLOBIN A1C Reviewed date:10/26/2025 01:45:33 PM Interpretation: Performing Lab: Notes/Report: [facility] ,Glycohemoglobin A1C7.44.5-6.2 % ADA RECOMMENDED LIMIT 4.0 - 6.0 ADA THERAPEUTIC TARGET < 7.0 ACTION SUGGESTED > 7.0 Estimated Average Rhedbbb973Acijrpyqhl Lab:see note - [place] [facility] IRON Reviewed date:10/26/2025 01:45:33 PM Interpretation: Performing Lab: Notes/Report: [facility] ,Iron74.050.0-170.0 ug/dLPerforming Lab:see note - [place] LBT4 Reviewed date:10/26/2025 01:45:33 PM Interpretation: Performing Lab: Notes/Report: [facility] ,T4 Thyroxine7.304.80-13.90 ug/dLPerforming Lab:see note - [place] LBTSH Reviewed date:10/26/2025 01:45:33 PM Interpretation: Performing Lab: Notes/Report: [facility] ,Thyroid Stimulating Hormone0.7000.358-3.740 uIU/mLPerforming Lab:see noteMer[facility] LBVITAMIN D 25 [place] Reviewed date:10/26/2025 01:45:33 PM Interpretation: Performing Lab: Notes/Report: [facility] ,Vitamin D23.2 <20 ng/mL Vit D deficient 20-<30 ng/mL Vit D insufficient 30-100 ng/mL Vit D sufficient >100 ng/mL Potential Toxicity Performing Lab:see noteML - [place] LBPROF 14(COMP METB) Reviewed date:10/26/2025 01:45:33 PM Interpretation: Performing Lab: Notes/Report: [facility] ,Aqgvox838949-535 mmol/LPotassium4.43.5-5.1 mmol/TYatigxys96230-983 mmol/LCarbon Kumtldl60.421.0-32.0 mmol/LAnion Gap14.0Hzcufpn82947-010 mg/dLBlood Urea Fmffajcv85.07.0-18.0 mg/dLCreatinine1.630.55-1.02 mg/dLEstimated GFR ( Kwdymoa34>=60 mL/min/1.73m 2Estimated GFR (Non- Ame32>=60 mL/min/1.73m 2 BUN Creatinine Ratio18.4Zeayclq2.68.5-10.1 mg/dLBilirubin Total0.70.2-1.0 mg/dL Aspartate Amino Plfbwbcgrfj8214-38 U/LAlanine Hzhucanhwtilruve4166-59 U/L Alkaline Krdxhzclsch13205-221 U/LTotal Protein7.06.4-8.2 g/dLAlbumin Level3.1 3.4-5.0 g/dLGlobulin3.9Albumin Globulin Ratio0.8Performing Lab:see noteML - [place] LBLIPID PROFILE Reviewed date:10/26/2025 01:45:33 PM Interpretation: Performing Lab: Notes/Report: [facility] ,Lyzpcuaryfhty150<=150 mg/tCCpvtpgnsbfn283<=200 mg/dLHDL Yneqrcvyhat2199-75 mg/dL > or =60 mg/dl - LOW CARDIOVASCULAR RISK <40 mg/dl - HIGH CARDIOVASCULAR RISK LDL Cholesterol Iphuqsjuig08.0 <100 mg/dl OPTIMAL 100-129 mg/dl NEAR OR ABOVE OPTIMAL 130-159 mg/dl BORDERLINE HIGH 160-189 mg/dl HIGH >190 mg/dl VERY HIGH VLDL LMFCJIYMFBX18.8Chol HDL Ratio4.3 3.3 - 4.4 LOW RISK 4.4 - 7.1 AVERAGE RISK 7.1 - 11.0 MODERATE RISK >11.0 HIGH RISK Performing Lab:see noteML - [facility] LB Reason For Referral Reason Faciual cyst Diagnosis 1 Sebaceous cyst (L72. 3) Referral Organization [facility] Referring Provider First Name Roman Referring Provider Last Name aDnielle [facility] Rojelio Rojas Referred Provider Specialty Plastic and Reconstructive Surgery Referral Priority Routine Diagnosis 1 Callus (L84) Referral Organization [facility] Referring Provider First Name Roman Referring Provider Last Name Danielle Referring Provider [facility] Referred Provider Milan Ross Referred Provider Specialty Podiatry Referral Priority Routine Medications Medication SIG (Take, Route, Frequency, Duration) Notes Start Date End Date Status Pramipexole Dihydrochloride 1 MG TAKE ON E TABLET BY MOUTH ONCE NIGHTLY; Duration: 90 days ActiveAtorvastatin Calcium 80 MGTAKE 1 TABLET BY MOUTH DAILY; Duration: 90Active Tolterodine Tartrate ER 2 MGTAKE 1 CAPSULE BY MOUTH DAILY; Duration: 90Active Albuterol Sulfate HFA 108 (90 Base) MCG/ACT2 puff as needed Inhalation every 4 hrsActiveMagnesium Oxide 400 MG1 tablet Orally twice daily; Duration: 30 days ActiveSymbicort 160-4.5 MCG/ACT2 puffs Twice a dayActiveDofetilide 250 MCGTAKE 1 CAPSULE BY MOUTH 2 TIMES A DAY; Duration: 90ActiveNIFEdipine ER 30 MG1 tablet on an empty stomach Orally at bedtime; Duration: 30 days4ActiveInsulin Aspart FlexPen 100 unit/mLINJECT UNDER THE SKIN DIRECTED: 4 UNITS IF SUGAR IS LESS THAN 120, 8 UNITS IF 120-200, AND 12 UNITS IF SUGAR IS GREATER THAN 200 (USING UP TO 36 UNITS DAILY); Duration: 25ActivePlavix 75 MG1 tablet Orally Once a dayActiveLift Chair -Use as keoethwx18/04/2023ActiveSpironolactone 25 MG1 tablet Orally Once a day; Duration: 90 daysActiveBumetanide 1 MG1 tablet Orally every other day; Duration: 90 daysActiveVitamin D 50 MCG (2000 UT)1 tablet Orally Once a day; Duration: 30 days5ActiveJardiance 10 MG1 tablet Orally Once a day; Duration: 30 day(s)3ActiveDULoxetine HCl 60 MG2 capsule Orally Once a day; Duration: 30 daysActiveOneTouch Verio -USE ONE STRIP TO TEST FOUR TIMES A DAY DIRECTED; Duration: 87 daysActiveOne Touch Ultra Test Strips -Use one strip via meter Four times daily; Duration: 90 days 03/08/2023ctiveEntresto 24-26 MGTAKE 1 TABLET BY MOUTH 2 TIMES A DAY; Duration: 30ActivePen [place] 31G X 5 MM1 sq use 5 times daily to give insulin; Duration: 90 days3ActiveEliquis 5 MG1 tablet Orally Twice a dayActiveToujeo SoloStar 300 UNIT/ML46 U Subcutaneous bid01/29/2024ctiveHYDROcodone- Acetaminophen 5-325 MG 1 tablet Orally qhs; Duration: 30 days M54.16 5Active Social History Tobacco Use: Social History Observation Description Date Details (start date - stop date) Current Smoker 11/26/1979 - NA Tobacco Use/Smoking Question Answer Notes Patient is a current smoker When did you start smoking?11/26/1979How often do you smoke cigarettes?every day How many cigarettes a day do you smoke?31 or moreAre you interested in quitting? Not ready to quitAlcohol Screen (Audit-C) Question Answer Notes Did you have a drink containing alcohol in the p ast year? No Scqvym3PebvxybromdedrEgbprxdhKWREI-U (Standard) Question Answer Notes Did you have a drink containing alcohol in the p ast year? No Dliywr8BmkhhayouydewkJzpmkehm Problems Problem Type SNOMED Code ICD Code Onset Dates Problem Status W/U Status Risk Notes Problem Type I diabetes luis miguel itus without complication (439516032) Type 1 diabetes mellitus without complications (E10.9) ActiveconfirmedProblemParoxysmal atrial fibrillation (126917439)Paroxysmal atrial fibrillation (I48.0)ActiveconfirmedProblemSebaceous cyst (860182881) Sebaceous cyst (L72.3)ActiveconfirmedProblemDisorder of musculoskeletal system (146140)Other symptoms and signs involving the musculoskeletal system (R29.898) ActiveconfirmedProblemSolitary pulmonary nodule (298830213)Solitary pulmonary nodule (R91.1)ActiveconfirmedProblemMorbid obesity (716929977)Morbid obesity (E66.01)ActiveconfirmedProblemHypertension (85592480)Hypertension (I10)Active confirmedProblemAtrial fibrillation (disorder) (49457005)Afib (I48.91)Active confirmedProblemCoronary artery disease (09725407)CAD (coronary artery disease) (I25.10)ActiveconfirmedProblemRestless legs (10192564)Restless leg (G25.81) ActiveconfirmedProblemTachycardia (2096418)Tachycardia (R00.0)Activeconfirmed ProblemOsteoarthritis of knee (677311386)Knee osteoarthritis (M17.9)Active confirmedProblemHypoglycemia (928025472)Hypoglycemia (E16.2)Activeconfirmed ProblemChronic pain (91895426)Chronic pain (G89.29)ActiveconfirmedProblemTobacco user (247910756)Cigarette nicotine dependence without complication (F17.210) ActiveconfirmedProblemBladder spasm (713385849)Bladder spasm (N32.89)Active confirmedProblemCallus (707281527)Callus (L84)ActiveconfirmedProblemRight carotid artery stenosis (431432215724088)Carotid occlusion, right (I65.21)Active confirmedProblemAcute congestive heart failure (86910084)Acute CHF (I50.9)Active confirmedProblemEssential hypertension (02546110)BP (high blood pressure) (I10) ActiveconfirmedProblemDiabetes mellitus (35377703)Diabetes mellitus (E11.9) ActiveconfirmedProblemLow back pain (394478948)Low back pain, unspecified (M54.50)Activeconfirmed Vital Signs Blood pressure diastolic 72 mm Hg 10/15/2025 Faauug99 in10/15/2025lood pressure zarwmwyf277 mm Hg10/15/20256843Nbwhky083.6 lbs 10/15/2025BMI39.2 kg/m210/15/2025 Encounters Encounter Location Date Provider Diagnosis [facility] [address] [place] [address] 04/21/2025 Roman Hoy Sebaceous cyst L72.3 ; Hypertension I10 ; Diabetes mellitus E11.9 and Morbid obesity E66.01 [facility] [address] [facility] [address] 10/15/2025 Roman Santos Callus L84 ; Type 1 diabetes mellitus without complications E10.9 ; Hypertension I10 and Morbid obesity E66.01 [facility] [address] [facility] [address] 11/12/2024 Roman Danielle [facility] [facility] [address] 01/15/2025Doug [facility] [facility] [place] [address]/02/2025Doug [facility] [facility] [place] [facility] [place] [address]/Doug [facility] [facility] [address]/07/2025Doug [facility] [address] [facility] [place] [address]/Doug HoyKnee osteoarthritis M17.9B[facility] [facility] [place] [address] 10/26/2025Doug [facility] [facility] [place] [address]/07/2025Doug HoyBP (high blood pressure) I10 Assessments Encounter Date Diagnosis (ICD Code) Assessment Notes Treatment Notes Treatment Clinical Notes Section Notes 04/21/2025 Sebaceous cyst (ICD-10 - L72.3) 04/21/2025Hypertension (ICD-10 - I10)10/15/2025allus (ICD-10 - L84)setting up iwcristóbal Ross10/15/2025Type 1 diabetes mellitus without complications (ICD- 10 - E10.9)runnign 120- 100's007/17/2025Knee osteoarthritis (ICD-10 - M17.9) 05/04/2025P (high blood pressure) (ICD-10 - I10)10/15/2025Hypertension (ICD-10 - I10)04/21/2025Diabetes mellitus (ICD-10 - E11.9)04/21/2025Morbid obesity (ICD- 10 - E66.01)10/15/2025Morbid obesity (ICD-10 - E66.01)disussed deit and exercis Plan Of Treatment Pending Test Test Name Order Date HEMOGLOBIN A1C (GLYCO) 04/21/2025 HEMOGLOBIN A1C (GLYCO) 10/15/2025 IRON, TOTAL 04/21/2025 IRON, TOTAL 10/15/2025 LIPID PANEL (CHOL/TRIG/HDL/LDL) 10/15/20 25 LIPID PANEL (CHOL/TRIG/HDL/LDL) 04/21/20 25 VITAMIN D, 25 LEVEL (TOTAL) 04/21/2025 VITAMIN D, 25 LEVEL (TOTAL) 10/15/2025 FECAL OCCULT BLOOD 08/11/2024 CMP - Comprehensive Metabolic Panel 07/27 CBC W/AUTO DIFF 08/11/2024 STOOL OCCULT BLOOD 10/15/2025 STOOL OCCULT BLOOD 04/21/2025 BNP 10/29/2023 BNP 04/21/2025 CBC AUTO DIFF 10/29/2023 MAGNESIUM 10/29/2023 MAGNESIUM 04/21/2025 PROF 14(COMP METB) 10/29/2023 PROF CHEM 8 (BAS METB) 01/30/2024 THYROID PROFILE WITH TSH 10/29/2023 CT CHEST WO CON 08/23/2023 CT LUNG CANCER SCREENING 09/17/2024 THYROID PANEL (T4/TSH/FREE T3) 4 THYROID PANEL (T4/TSH/FREE T3) 5 THYROID PANEL (T4/TSH/FREE T3) 5 MM screening mammo BI 10/15/2025 CMP (COMP MET BOB) w/eGFR CKD-EPI 2024 CMP (COMP MET BOB) w/eGFR CKD-EPI 2024 CBC WITH DIFF 04/21/2025 CBC WITH DIFF 10/15/2025 Next Appt Details Provider Name:Roman Santos, 09:45:00 AM, [address] [place], [address], Insurance Providers Payer Name Payer Address Payer Phone Subscriber Number Group Number Insured Name Patient Relationship to Insured Coverage Start Date Coverage End Date [employer]ARE ADV [address] [place] [id number] [phone] [id number] Maite Faria - patient is the insured Medical (General) History Medical History History ICD Code Type 1 diabetes mellitus without complic ations E10.9 Hypoglycemia E16.2 Surgical History Surgery Date(Month/Year) CHOLECYSTECTOMY Heart Rrpouvhu3238Mmbmmn spots on faceAnterior Cervical Discectomy C5-6 Dr. Prabhakar09/21/2017exp lap/ small bowel resectionCardiac StentsTubal LigationRight Carotid Stent placementAFib Ablation11/2023Hospitalization History Reason Date(Month/Year) carotid stent 05/19 Pneumonia 09/2023
--- OUTSIDE RECORDS SUMMARY | 2025-10-29 10:04 | XMS_ITS | Clinical Summary ---
Author Organization [facility] Address [address] [place] [address] Care Team Providers Care Commodities Manager Name Role Phone Paul Santos MD Primary Care Provider [phone] [phone] Active AllergyReactionsCriticalityNoted DateCommentsSulfa Axnoubizwfv15/05/2022 Medications MedicationSigDispense QuantityRefillsLast FilledStart DateEnd DateStatus insulin [...] wheezing.Active Active Problems ProblemNoted DateDiagnosed DateChronic maxillary zcufaymeo61/09/2023oronary artery disease involving ho-chunk coronary artery of ho-chunk heart with angina qyfvmrtn97/09/2023 Social History Tobacco UseTypesPacks/DayYears UsedDateSmoking Tobacco: Every DayCigarettes Smokeless Tobacco: Never Tobacco Cessation:Ready to Q uit: Not Asked; Counseling Given: Not Answered Alcohol UseStandard Drinks/WeekCommentsNot Currently0 (1 standard drink = 0.6 oz pure alcohol)CommentsUnknownSex and Gender InformationValueDate Recorded Sex Assigned at BirthNot on fileLegal MfnWizbtn33/15/2023 8:01 PM EDTGender IdentityNot on fileSexual OrientationNot on file Last Filed Vital Signs Vital SignReadingTime TakenCommentsBlood Zvnndqqd33/55005/04/2023 11:33 AM EDT Pulse--Temperature--Respiratory Rate--Oxygen Saturation--Inhaled Oxygen Concentration--Fwzkgl549 kg (249 lb)05/04/2023 11:33 AM GKZZmzhwh300.1 cm (5' 5 )05/04/2023 11:33 AM EDTBody Mass Index41.44005/04/2023 11:33 AM EDT Plan of Treatment DateTypeDepartmentCare Team (Latest Contact Info)Trnkmejsbhh90/11/2025 9:40 AM ESTOffice Visit [facility] [address] [facility] [address] [place] [address] Kalpesh Paulson DPM [phone] [facility] [address] [place] [address] Insurance Care Teams Team MemberRelationshipSpecialtyStart Date Paul Santos MD [address] [place] [address] PCP - GeneralFamily Medicine04/12/23
--- OUTSIDE RECORDS SUMMARY | 2025-10-29 10:04 | XMS_ITS | Clinical Summary ---
Author Organization [facility] Address [address] [place] [address] Care Team Providers Care Class A Lineman Name Role Phone Paul Santos MD Primary Care Provider [phone] Frankie Casey MD Unavailable [phone] Allergies Active AllergyReactionsCriticalityNoted DateCommentsSulfa (Sulfonamide Antibiotics)11/30/2021 [...] DateDiagnosed DateCarotid stenosis, asymptomatic, bilateral 4BMI 33.0-33.9,adult2Cervical mikirigiaqh19/14/2022Chronic obstructive pulmonary ryohysk2110/09/2022oronary artery aejxrgab97/14/2022 Vcmqwuna16/14/2022History of small bowel tiaoesloepr13/14/1875Lqiptbko94/14/2022 Ischemic bowel mihcfcg3510/09/2022Low back pain cvbebcdl60/14/2022Neoplasm of uncertain behavior of skin of vmqcyiq1610/09/2022ight /14/2022enile solar zejeumplq79/14/7705Vylxrl49/14/2022VT (supraventricular tachycardia) 10/09/2022Lumbar wyevuphjorcfk13/14/2022Ventral amrwin3010/09/2022 Immunizations ImmunizationAdministration DatesNext DueInfluenza, Hrgchhyzaup49/05/2017Zoster, Zykgtttovvp90/12/2022,10/21/2021 Social History Tobacco UseTypesPacks/DayYears UsedDateSmoking Tobacco: Every [...] ValueDate RecordedSex Assigned at BirthNot on fileLegal QbfVdoplq31/29/2022 10:07 PM EDTGender IdentityNot on fileSexual OrientationNot on file Last Filed Vital Signs Vital SignReadingTime TakenCommentsBlood Qonrwviw116/6905 7:52 AM EDT Pbjdi432004/25/2024 7:52 AM ITKIpfkuqyyrcu92 ??C (98.6 ??F)04/25/2024 7:52 AM EDT Respiratory Kdyf1441 7:52 AM EDTOxygen Lyurpepuoo62%04/25/2024 7:52 AM EDTInhaled Oxygen Concentration--Raauty391 kg (223 lb 3.2 oz)04/25/2024 3:52 AM HMJGvoffq451.7 cm (5' 8 )09/22/2020 8:58 AM EDTBody Mass Index33.9409/22/2020 8:58 AM EDT Plan of Treatment Health MaintenanceDue DateLast DoneCommentsCT Xxnthyaowejy1966Colonoscopy 1966Colorectal Cancer Puuwkprkm1966Diabetes: Hemoglobin A1C 1966FIT-DNA1966FIT1966FOBT1966Medicare Annual Wellness (AWV)1966 7387Isvivlppijhjs1966Diabetes: Retinopathy Jmwvxtxff48/24/1976 Depression Tdrnauqxe52/24/1978Diabetes: Urine Protein Ehcjlyram42/24/1985 Hepatitis B Vaccines (1 of 3 - 19+ 3-dose series)1985Pneumococcal Vaccine: Pediatrics (0 to 5 Years) and At-Risk Patients (6 to 64 Years) (1 of 2 - PCV) 1985Pap Smear1987Adult Cusqmop4201/19/1988Cervical Cancer Screening 1996HPV/Bcwcjo6801/19/19965712Ezhiqzvyx46/24/2006COVID-19 Vaccine ( season), 02/08/2021, 01/18/2021Influenza Vaccine (#1) /03/2017Zoster KozlqgfoEppyogqdo90/12/2022, 10/21/2021HIB Vaccines Aged OutNo longer eligible based [...] Expiration DateModel / Serial / LotStent,Xact,Carotid,9x30 - [id number] - [id number] Implanted:Qty: 1 on 04/24/2024 by Lefty Santos [facility]entABBOTT [id number] / [id number] / [id number] Insurance Advance Directives * Full Code (Latest Code Status on File) Date ActivatedDate InactivatedComments04/24/2024 5:56 PM04/25/2024 2:10 PM Care Teams Team MemberRelationshipSpecialtyStart DateEnd Date Paul Santos MD [address] [address] PCP - Qnknarm70/10/22 Frankie Casey MD [address] [place] [id number] CikidkiWnfywjbopbuc77/10/22
--- OUTSIDE RECORDS SUMMARY | 2025-10-29 10:09 | XMS_ITS | CCD ---
Author Organization [facility] Care Team Providers Care Java Portal Developer Name Role Phone ESTELA WOMACK Unavailable Unavailable ESTELA WOMACK Unavailable Unavailable CARY BENTON Unavailable Unavailable CARY BENTON Unavailable Unavailable OK Unavailable Unavailable ESTELA WOMACK Unavailable Unavailable Cary Benton MD Primary Care Provider Nathan BRMABILA Attending Unavailable Cary Yusuf Referring UnavailCary Adame Primary Care Physician Nathan BRAMBILA Attending Unavailable Cary Yusuf Referring UnavailNathan Flor Attending Unavailable Nathan BRAMBILA Attending Unavailable POPEYE KAUFFMAN Referring Unavailable POPEYE KAUFFMAN Attending Unavailable CHETAN Gonzalez, DR TOWNSEND Admitting Unavailable CHETAN ., DR TOWNSEND Attending Unavailable CHETAN ., DR TOWNSEND Consulting Unavailable DR CARY VARGAS Primary Care Unavailable [place], DR MARIA LUISA Michaels Consulting Unavailable OSCARY [...] DR TOWNSEND Attending Unavailable CHETAN ., DR OTWNSEND Consulting Unavailable CHETAN ., DR TOWNSEND Primary Care Unavailable DR CARY VARGAS Admitting Unavailable Lazarus Parra Consulting Unavailable DAVID CAVANAUGH Consulting Unavailable MARINE [...] Unavailable Cary Benton MD Primary Care Provider [phone] LENCHO, LUNA Referring Unavailable LENCHO, LUNA Admitting Unavailable LUNA MUSA Attending Unavailable LUNA MUSA Attending Unavailable LUNA MUSA Referring Unavailable CARY BENTON Primary Care Unavailable Rojelio Rojas MD Attending Provider [phone] NO FAMILY, PHYSICIAN Primary Care Provider Unava [...] sources)Sulfonamides (Antibiotic); Translations: [SULFA (SULFONAMIDE ANTIBIOTICS)]Drug allergy (disorder)43-11-7722NRXVlz [facility] (10 sources)Sulfonamides (Antibiotic)Propensity to adverse reactions to drug 12-86-1950[facility] (2 sources)Sulfonamides (Antibiotic); Translations: [sulfa drugs]Drug allergy Unknown (qualifier value)General Surgery Chin Medications Current Medications MedicationDrug Class(es)DatesSig (Normalized)Sig (Original)acetaminophen 325 mg / HYDROcodone bitartrate 5 mg oral tablet (3 sources)Opioid AgonistStart: 50-03-2858ejba 1 tablet by mouth every six hours as needed for painHYDROcodone-acetaminophen (NORCO) 5-325 MG per tablet Take 1 tablet by mouth every 6 hours as needed for Pain. 10/13/2024 Eckjygboe630212 200 actuat albuterol 0.09 mg/actuat metered dose inhaler (10 sources)beta2-Adrenergic Agonisttake 2 puff(s) by inhalation every six hours as needed for wheezingalbuterol sulfate HFA (PROVENTIL;VENTOLIN;PROAIR) 108 (90 Base) MCG/ACT inhaler Inhale 2 puffs intothe lungs every 6 hours as needed for Wheezing Activealbuterol HFA 90 mcg/inh MDI (1 source)Start: 54-46-5390sukp 2 puff(s) by inhalation four times daily albuterol HFA 90 mcg/inh MDI 2 puff(s), Inhalation, QID Shortness of breath or wheezing, Refill(s) 0 Start Date: 08/25/22 Status: Orderedaluminum hydroxide 40 mg/ml / magnesium hydroxide 40 mg/ml / simethicone 4 mg/ml oral suspension (3 sources)Start: 52-44-9048wsfq 30 mL by mouth every six hours as needed aluminum & magnesium hydroxide-simethicone (MAALOX) 200-200-20 MG/5ML SUSP suspension Take 30 mLs by mouth every 6 hours as needed for Indigestion 300 mL 0 10/24/2023 Activeapixaban 5 mg oral tablet (7 sources)Factor Xa InhibitorStart: 03-22-8255rgef 1 tablet by mouth twice dailyapixaban (ELIQUIS) 5 MG TABS tablet Indications: Atrial flutter, unspecified type (HCC) Take 1 tablet by mouth 2 times daily 180 tablet 2 07/02/2025 ActiveStart: 88-12-8998dele 1 tablet by mouth twice dailyapixaban (ELIQUIS) 5 MG TABS tablet Indications: Atrial flutter, unspecified type (HCC) Take 1 tablet by mouth 2 times daily 180 tablet 2 03/30/2025 ActiveStart: 97-71-9343hguv 1 tablet by mouth twice dailyELIQUIS 5 MG TABS tablet Indications: Atrial flutter, unspecified type (HCC) TAKE 1 TABLET BY MOUTHTWICE A DAY 180 tablet 1 02/08/2024 ActiveStart: 58-15-2436uvnq 1 tablet by mouth twice dailyapixaban (ELIQUIS) [...] mg oral tablet (11 sources)HMG-CoA Reductase InhibitorStart: 31-93-8061qkej 1 tablet by mouth once dailyatorvastatin (LIPITOR) 80 MG tablet Take 1 tablet by mouth daily 09/20/2021 Mhoors93 actuat budesonide 0.16 mg/actuat / formoterol fumarate 0.0045 mg/actuat metered dose inhaler (10 sources)Corticosteroid, beta2-Adrenergic AgonistStart: 10-87-1004SEVPEFTQR 160-4.5 MCG/ACT AERO Inhale 2 puffs into the lungs 10/24/2021 ActiveStart: 02-73-0602ZRTRVWWJS 160-4.5 MCG/ACT AERO 10/24/2021 Activebumetanide 1 mg oral tablet (5 sources)Loop DiureticStart: 14-01-1295bupj 1 tablet by mouth once daily bumetanide (BUMEX) 1 MG tablet Take 1 tablet by mouth daily 90 tablet 3 06/12/2025 ActiveStart: 63-16-6329idlj 1 tablet by mouth once dailybumetanide (BUMEX) 0.5 MG tablet Take 1 tablet by mouth daily 30 tablet 0 10/24/2023 Active carvedilol 6.25 mg oral tablet (6 sources)alpha-Adrenergic Janny, beta-Adrenergic BlockerStart: 10-24-2023 take 1 tablet by mouth twice daily at mealtimecarvedilol (COREG) 6.25 MG tablet Take 1 tablet by mouth 2 times daily (with meals) 60 tablet 3 10/24/2023 Active Start: 53-67-9798xmcpsizqbd (COREG) 6.25 MG tabletcholecalciferol 0.125 mg oral capsule (6 sources)Vitamin DStart: 01-49-8500Myhamwziuflkhej (VITAMIN D3) 125 MCG (5000 UT) CAPSclopidogrel 75 mg oral tablet (9 sources)P2Y12 Platelet InhibitorStart: 50-21-6174llvq 1 tablet by mouth once dailyclopidogrel (PLAVIX) 75 MG tablet TAKE 1 TABLET BY MOUTH DAILY 90 tablet 2 03/25/2025 ActiveStart: 07-69-3973rjdg 1 tablet by mouth once dailyclopidogrel (PLAVIX) 75 MG tablet TAKE 1 TABLET BY MOUTH DAILY 90 tablet 3 09/21/2023 Active Start: 58-61-0027deqd 1 tablet by mouth once dailyPlavix 75 mg Tab 75 mg = 1 tab(s), Oral, Daily, Refills(s) 0 Start Date: 09/01/22 Status: OrderedStart: 26-72-7032svdz 1 tablet by mouth once dailyclopidogrel (PLAVIX) 75 MG tablet Take 1 tablet by mouth daily 30 tablet 3 05/15/2022 Activedofetilide 0.25 mg oral capsule (7 sources)AntiarrhythmicStart: 53-59-1453ztku 1 capsule by mouth every twelve hoursdofetilide (TIKOSYN) 250 MCG capsule Take 1 capsule by mouth every 12 hours 60 capsule 3 10/24/20231832Qutxca9 ml droperidol 2.5 mg/ml injection (1 source)Dopamine-2 Receptor AntagonistStart: .625 mg, IntraVENous, ONCE PRN, 1 dose, Starting on Nichelle 09/10/25 at 1101, Until Discontinued, Nausea, Initial antiemetic therapy., PACU onlyDULoxetine 60 mg delayed release oral capsule (11 sources)Serotonin and Norepinephrine Reuptake InhibitorStart: 78-47-5669luwp 2 capsules by mouth once dailyduloxetine 60 mg Cap-DR = 2 cap(s), Oral, Daily, Refills(s) 0 Start Date: 08/25/22 Status: OrderedStart: 47-16-2732mnay 1 capsule by mouth once dailyDULoxetine (CYMBALTA) 60 MG extended release capsule Take 1 capsule by mouth daily 11/20/2021 Activeempagliflozin 10 mg oral tablet (5 sources)Sodium-Glucose Cotransporter 2 InhibitorStart: 45-59-6351nyia 1 tablet by mouth once dailyJARDIANCE 10 MG tablet Take 1 tablet by mouth daily 05/25/2025 ActiveStart: 36-83-8800exib 1 tablet by mouth once dailyempagliflozin (JARDIANCE) 10 MG tablet Take 1 tablet by mouth daily 30 tablet 3 10/25/2023 Activefurosemide 40 mg oral tablet (2 sources)Loop DiureticStart: 25-62-3202jguz 1 tablet by mouth once dailyLasix 40 mg Tab 40 mg = 1 tab(s), Oral, Daily, Refills(s) 0 Start Date: 08/25/22 Status: Orderedtake 1 tablet by mouth once dailyfurosemide (LASIX) 40 MG tablet Take 40 mg by mouth daily 0 Activeglimepiride 4 mg oral tablet (3 sources)SulfonylureaStart: 37-29-9551nffekwznapu (AMARYL) 4 MG tabletInsulin Aspart FlexPen (1 source)Start: 26-41-3915Wzfggxo Aspart FlexPen as directed, Refills(s) 0 Start [...] Activelabetalol (NORMODYNE;TRANDATE) injection 10 mg (1 source)Start: 76-11-9591hwhuvieck (NORMODYNE;TRANDATE) injection 10 mgLantus Solostar Pen (1 source)Start: 92-12-5591xmunvb 30 [IU] by subcutaneous injection twice daily Lantus Solostar Pen 30 unit(s), SubCutaneous, BID, Refill(s) 0 Start Date: 08/25/22 Status: Orderedlisinopril 10 mg oral tablet (4 sources)Angiotensin Converting Enzyme InhibitorStart: 34-28-4366dheq 1 tablet by mouth once dailylisinopril 10 mg Tab 10 mg = 1 tab(s), Oral, Daily, Refills(s) 0 Start Date: 08/25/22 Status: OrderedStart: 03-89-2899jmluvtefyp (PRINIVIL;ZESTRIL) 10 MG tabletmagnesium oxide 400 mg oral tablet (5 sources)take 1 tablet by mouth once dailymagnesium oxide (MAG-OX) 400 (240 Mg) MG tablet Take 1 tablet by mouth daily Activemeloxicam 15 mg oral tablet (3 sources)Nonsteroidal Anti-inflammatory DrugStart: 78-92-8148bunzxlazz (MOBIC) 15 MG ohwrox77 hr metFORMIN hydrochloride 500 mg extended release oral tablet (3 sources)BiguanideStart: 57-75-6067mdvEIPPJX (GLUCOPHAGE-XR) 500 MG extended release sstlam40 hr metoprolol succinate 50 mg extended release oral tablet (4 sources)beta-Adrenergic BlockerStart: 94-52-4093fjrd 0.5 tablet by mouth at bedtimemetoprolol succinate (TOPROL XL) 50 MG extended release tablet Take 0.5 tablets by mouth in the morning and at bedtime 180 tablet 3 09/10/2025 Active Start: 06-12-2025 End: 74-57-5477jtfc 1 tablet by mouth at bedtimemetoprolol succinate (TOPROL XL) 50 MG extended release tablet Take 1 tablet by mouth in the morning and at bedtime 180 tablet 3 06/12/2025 09/10/2025 DiscontinuedStart: 69-84-8020cmky 1 tablet by mouth twice dailyMetoprolol tartrate 25 mg Tab 25 mg = 1 tab(s), Oral, BID, Refills(s) 0 Start Date: 09/01/22 Status:Orderednaloxone 0.4 mg in 10 mL sodium chloride syringe (1 source)Start: 90-77-6251BfyriGASxvc, PRN, Opioid Reversal, Starting on Nichelle 09/10/25 [...] 0.4 mg sublingual tablet (1 source)Nitrate VasodilatorStart: 27-61-3076tsjsarqpolifw 0.4 mg sublingual Tab 0.4 mg = 1 tab(s), SubLingual, q5min, PRN for chest pain, Refills(s) 0 Start Date: 08/25/22 Status: Orderedoxaprozin 600 mg oral tablet (3 sources)Nonsteroidal Anti-inflammatory DrugStart: 65-12-8654iqvqnomhc (DAYPRO) 600 MG tabletpantoprazole 40 mg delayed release oral tablet (7 sources)Proton Pump InhibitorStart: 99-48-9265szlp 1 tablet by mouth once daily before breakfastpantoprazole (PROTONIX) 40 MG tablet TAKE ONE TABLET BY MOUTH ONCE EVERY MORNING BEFORE BREAKFAST 90 tablet 2 02/17/2025 ActiveStart: 58-54-2572dnhk 1 tablet by mouth once daily before breakfastpantoprazole (PROTONIX) 40 MG tablet Take 1 tablet by mouth every morning (before breakfast) 90 tablet 3 02/22/2024 ActiveStart: 51-36-0821rrro 1 tablet by mouth once daily before breakfastpantoprazole (PROTONIX) 40 MG tablet Take 1 tablet by mouth every morning (before breakfast) 30 tablet 3 10/25/2023 Activepioglitazone 30 mg oral tablet (3 sources)Peroxisome Proliferator Receptor alpha Agonist, Peroxisome Proliferator Receptor gamma Agonist, ThiazolidinedioneStart: 11-02-2021 pioglitazone (ACTOS) 30 MG tabletpramipexole dihydrochloride 0.5 mg oral tablet (11 sources)Nonergot Dopamine AgonistStart: 57-23-7068ilhd 1 tablet by mouth once dailypramipexole (MIRAPEX) 0.5 MG tablet Take 1 tablet by mouth daily 10/03/2021 Activesacubitril 24 mg / valsartan 26 mg oral tablet (2 sources)Angiotensin 2 Receptor BlockerStart: 50-90-2499nlgw 1 tablet by mouth twice dailyENTRESTO 24-26 MG per tablet Take 1 tablet by mouth 2 times daily 05/25/2025 ActiveSITagliptin 100 mg oral tablet (3 sources)Dipeptidyl Peptidase 4 InhibitorStart: 56-52-3950IVGVBMI 100 MG fnbypa09 ml sodium chloride 9 mg/ml injection (5 sources)Start: 21-55-3261VypixFHXjhh, at 5-250 mL/hr, PRN, if patient receiving [...] Central Line = 20 mL/lumen, PACU onlyStart: 40-99-7746IisxoXOLqkc, at 75 mL/hr, CONTINUOUS, Starting on Nichelle 09/10/25 at 0730, Pre-Procedure(Cath) Start: .9 % sodium chloride infusionspironolactone 25 mg oral tablet (7 sources)Aldosterone AntagonistStart: 25-45-9474qmte 1 tablet by mouth once dailyspironolactone (ALDACTONE) 25 MG tablet Take 1 tablet by mouth daily 30 tablet 3 10/25/2023 ActiveSymbicort 160/4.5 inhalation aerosol with adapter (1 source)Start: 84-55-8904dzjp 2 puff(s) by inhalation twice dailySymbicort 160/4.5 inhalation aerosol with adapter 2 puff(s), Inhalation, BID, Refill(s) 0 Start Date: 08/25/22 Status: Orderedterbinafine 250 mg oral tablet (2 sources)Allylamine AntifungalStart: 58-03-7504mqnz 1 tablet by mouth once dailyterbinafine 250 mg oral tablet 250 mg = 1 tab(s), Oral, Daily, Refills(s) 0 Start Date: 08/25/22 Status: Orderedtake 1 tablet by mouth once dailyterbinafine (LAMISIL) 250 MG tablet Take 250 mg by mouth daily 0 ActivetiZANidine 4 mg oral tablet (4 sources)Central alpha-2 Adrenergic AgonistStart: 74-71-0389eyki 2 tablets by mouth at bedtimetiZANidine 4 mg Tab 8 mg = 2 tab(s), Oral, Bedtime, Refills(s) 0 Start Date: 08/25/22 Status: OrderedStart: 81-25-4377nkUHOsuvtf (ZANAFLEX) 4 MG nhbben36 hr tolterodine tartrate 2 mg extended release oral capsule (3 sources)Cholinergic Muscarinic AntagonistStart: 37-74-1239vngh 1 capsule by mouth once dailytolterodine (DETROL LA) 2 MG extended release capsule Take 1 capsule by mouth daily 10/14/2024 ActiveVitamin D (1 source)Start: 51-91-2964xlic 5000 [IU] by mouth once dailyVitamin D 5,000 unit(s), Oral, Daily, Refills(s) 0 Start Date: 08/25/22 Status: Ordered Completed/Discontinued Medications MedicationDrug Class(es)DatesSig (Normalized)Sig (Original)1 ml diphenhydrAMINE hydrochloride 50 mg/ml cartridge (1 source)Histamine-1 Receptor AntagonistStart: 97-41-809345.5 mg, IntraVENous, ONCE PRN, 1 dose, Starting [...] injection 122 mL (1 source)Start: 08-18-2025 End: 02-18-0389fmlm 1 dose intravenously lwrh350 mL, IntraVENous, IMG ONCE PRN, 1 dose, Starting on Sun08/18/25 at 1315, Until Sun08/18/25 at 1350, Other2 ml midazolam 1 mg/ml injection (1 source)BenzodiazepineStart: mg, IntraVENous, ONCE PRN, 1 dose, Starting on Nichelle 09/10/25 at 1101, Until Discontinued, Anxiety,PACU only24 hr NIFEdipine 30 mg extended release oral tablet (7 sources)Dihydropyridine Calcium Channel BlockerStart: 12-13-2024 End: 10-29-7123iiql 1 tablet by mouth once dailyNIFEdipine (ADALAT CC) 30 MG extended release tablet Take 1 tablet by mouth daily 12/13/2024 09/10/2025 Discontinued (Stop Taking at Discharge)Start: 36-91-7378ngqz 1 tablet by mouth at bedtimeNIFEdipine 30 mg ER Tab 30 mg = 1 tab(s), Oral, Bedtime, Refills(s) 0 Start Date: 08/25/22 Status: OrderedStart: 48-13-9253WCKNgfaedm (PROCARDIA XL) 30 MG extended release tabletmicroencapsulated potassium chloride 10 meq extended release oral tablet (5 sources)Start: 10-24-2023 End: 48-32-8240lfcstdxfz chloride (KLOR-CON M) 10 MEQ extended release tablet Take 3 tablets by mouth 2 times daily 180 tablet 10/24/2023 09/10/2025 Discontinued (Stop Taking at Discharge)prochlorperazine 5 mg/ml injectable solution (1 source)PhenothiazineStart: mg, IntraVENous, ONCE PRN, 1 dose, Starting on Nichelle 09/10/25 at 1101, Until Discontinued, Nausea, Secondary antiemetic therapy., PACU onlyregadenoson (LEXISCAN) injection 0.4 mg (1 source)Start: 01-24-2024 End: 68-04-8029jxhfuvjlibr (LEXISCAN) injection 0.4 mgtechnetium sestamibi (CARDIOLITE) injection 30 millicurie (1 source)Start: 01-25-2024 End: 64-59-4252rjixyztnrh sestamibi (CARDIOLITE) injection 30 millicurie Problems Active Problems Problem ClassificationProblemDateDocumented DateEpisodic/ChronicAbdominal hernia (1 source)Hernia of anterior abdominal xigu61-08-5847RvvxctlrImtujrs disorders (1 source)Panic disorder [episodic paroxysmal anxiety]; Translations: [PANIC DISORDER [EPISODIC PAROXYSMAL ANXIETY]]Onset: 75-02-2124MqhbersKqaqeqq dysrhythmias (20 sources)Supraventricular tachycardia; Translations: [Atrial flutter]Onset: 079018-92-3723DdpbvjuNmkwcer obstructive pulmonary disease and bronchiectasis (2 sources)Chronic obstructive lung disease; Translations: [Chronic obstructive pulmonary disease, unspecified]Onset: 245731-76-6077TkwrzbdSnccgcykxp associated with dizziness or vertigo (1 source)Dizziness and giddiness; Translations: [DIZZINESS AND GIDDINESS]Onset: 55-21-8033DttgurakSdbujhhuaq heart failure; nonhypertensive (20 sources)Congestive heart failure; Translations: [Heart failure, unspecified] Onset: 206010-70-6438SqygdfsHuuwohbf atherosclerosis and other heart disease (13 sources)Atherosclerotic heart disease of [place] coronary artery without angina pectoris; Translations: [Coronary arteriosclerosis]Onset: 09-13-2017 86-25-0135IsvsypiVnnaarikpt and other anemia (1 source)Anemia, unspecified; Translations: [ANEMIA UNSPECIFIED]Onset: 34-07-3755MqgddwkaNutvmmsl mellitus with complications (8 sources)Type 2 diabetes mellitus with hyperglycemia; Translations: [Type II diabetes mellitus uncontrolled]Onset: 673258-19-4464YvicgxtDvejmlks mellitus without complication (6 sources)Type 2 diabetes mellitus without complications; Translations: [Diabetes mellitus]Onset: 227720-78-8076XwtpcdqFqfgslhv mellitus without complication (1 source)Other abnormal glucose; Translations: [OTHER ABNORMAL GLUCOSE]Onset: 18-71-0817KjxdkbzqRefgujbvf of lipid metabolism (8 sources)Hyperlipidemia, unspecified; Translations: [Mixed hyperlipidemia] Onset: 562421-52-4663PicnnolIgfzgmeha hypertension (9 sources)Essential (primary) hypertension; Translations: [Essential hypertension]Onset: 787512-66-5772SdulnxgMpntxukli of unspecified nature or uncertain behavior (3 sources)Neoplasm of uncertain behavior of skin; Translations: [Neoplasm of uncertain behavior of skin]Onset: 73-10-0537LcvlvoipCtswrsiezkj chest pain (1 source)Chest pain, unspecified; Translations: [CHEST PAIN UNSPECIFIED]Onset: 21-86-4814MwasgdqyGzgtvddog or stenosis of precerebral arteries (6 sources)Occlusion and stenosis of bilateral carotid arteries; Translations: [Bilateral stenosis of carotid arteries]Onset: 51-72-2653JwogmjbIsyrv nutritional; endocrine; and metabolic disorders (1 source)Body mass index 30+ - pterlha60-87-2326HwxqzfbSrtkz nutritional; endocrine; and metabolic disorders (7 sources)Body mass index 40+ - severely obese; Translations: [Morbid (severe) obesity due to excess calories]Onset: 573263-94-0300FhcrusnFlmxf upper respiratory disease (1 source)Other specified disorders of nose and nasal sinuses; Translations: [OTH SPEC D/O NOSE NASAL SINUSES]Onset: 16-45-0709XmumcaszHlucz upper respiratory infections (5 sources)Chronic sinusitis, unspecified; Translations: [CHRONIC SINUSITIS UNSPECIFIED]Onset: 98-72-7272PeynukfOiianwpeg (1 source)Right pahjbfvqso84-70-0915ObbpojgUslmhppgbv and visceral atherosclerosis (8 sources)Vascular insufficiency of intestine; Translations: [Peripheral vascular disease, unspecified]Onset: 615145-83-7771ScyowazAmkudpcs codes; unclassified (7 sources)Obstructive sleep apnea syndrome; Translations: [Obstructive sleep apnea (adult) (pediatric)]Onset: 364495-44-4219JdtahhfPrhfpmcz codes; unclassified (1 source)Bvyhdjvr02-86-9085TxjwugvxVpkdfbikxka; intervertebral disc disorders; other back problems (1 source)Cervical vaapqteeate53-34-9356PwxflcoNtkghxjna-ngyuktd disorders (6 sources)Smoker; Translations: [Nicotine dependence, cigarettes, uncomplicated]Onset: 307971-88-5122ZlqvnigKpscmhteiobx (2 sources)Unknown / UNK(Unknown)Onset: 27-22-4147Mbrlhjbmvsts (2 sources)Unspecified intestinal obstruction, unspecified as to partial versus complete obstruction; Translations: [UNSP INTESTNL OBST, UNSP TO PARTIAL VERSUS COMPLETE OBST]Onset: 33-14-8973Pagzzlincjjk (1 source)History of small bowel colaszjgiir19-49-3547Ydzhhwkljxup (4 sources)CONTACT W/AND (SUSP) EXPOS COVID-19; Translations: [CONTACT W/AND (SUSP) EXPOS COVID-19]Onset: 40-44-4835Ydnmwyzzwscu (1 source)COUGH, UNSPECIFIED; Translations: [COUGH, UNSPECIFIED]Onset: 59-64-6088Uzlwyqjfpuvz (1 source)Other persistent atrial fibrillation; Translations: [Other persistent atrial fibrillation (HCC)]Onset: 08-18-2025 Past or Other Problems Problem ClassificationProblemDateDocumented DateEpisodic/ChronicAcute and unspecified renal failure (7 sources)Acute injury of kidney; Translations: [Acute kidney failure, unspecified]Onset: 230433-58-4418WnaelswoRastirnk atherosclerosis and other heart disease (1 source)Presence of coronary angioplasty implant and graft; Translations: [PRESENCE COR ANGPLSTY IMPLANT AND GRAFT]Onset: 80-11-9208XhpslrapRbqrztbbkv and other anemia (7 sources)Normocytic normochromic anemia; Translations: [Anemia, unspecified] Onset: 820440-46-3848KdfzfplfNyxrs and electrolyte disorders (8 sources)Hypo-osmolality and hyponatremia; Translations: [Hyponatremia]Onset: 020708-07-7016MoszsekdXyhsutvrqf obstruction without hernia (4 sources)Ileus, unspecified; Translations: [Partial intestinal obstruction, unspecified as to cause]Onset: 52-22-9563WwbupmhrEcska aftercare (1 source)director long term care (current) use of oral hypoglycemic drugs; Translations: [LEASING AGENT USE ORAL HYPOGLYCEMIC DX]Onset: 49-96-0267YtvvvahoNnygi aftercare (1 source)Other director long term care (current) drug therapy; Translations: [OTH LEASING AGENT CURRENT DRUG THERAPY]Onset: 35-68-5916YoamjvthYvggr circulatory disease (7 sources)History of atrial flutter; Translations: [Personal history of other diseases of the circulatory system]Onset: 823408-32-1094CymlmuqfFufen connective tissue disease (1 source)Arthrodesis status; Translations: [ARTHRODESIS STATUS]Onset: 37-16-0478BdzmlivzEcyoh upper respiratory disease (1 source)Nasal congestion; Translations: [NASAL CONGESTION]Onset: 12-03-2022 EpisodicResidual codes; unclassified (7 sources)Edema; Translations: [Edema, unspecified]Onset: EpisodicSpondylosis; intervertebral disc disorders; other back problems (8 sources)Low back pain; Translations: [Lumbar radiculopathy]Onset: 08-28-2022 40-63-9690OsnmncrrTymjhkiilyzp (1 source)CONTACT W/AND (SUSP) EXPOS COVID-19; Translations: [CONTACT W/AND (SUSP) EXPOS COVID-19]Onset: 12-01-2022 Results Test NameValueInterpretationReference RangeFacilityHgb Free, Plasmaon 09-12-2025 Hgb Free, Ehwgot83.9 mg/dLHigh0.0-9.7Mart[facility] Ferry HospitalComment on above:Result Comment: (NOTE) Performed By: [facility] [address] [place] [address] Steersman: Benedicto Howe MD, PhD CLIA Number: [id number] By: #### BFR ####[facility] [address] [place] [address] lab Director: Raymond Cavazos MD#### RETCT, CDP ####[facility] [address] [place] [address] lab Director: Haja Franz MDACTon 50-93-7443PXH363 zkbHdrn20-455ZzjgrMartins Ferry HospitalACT340 mhhLlps76-121QkmnmMartins Ferry HospitalACT345 pavPnhx99-572RjxdiMartins Ferry HospitalACT345 txwYzer50-187UzvhyMartins Ferry HospitalACT304 tknYtni44-739MnefnMartins Ferry Hospital Activated clotting timeon 76-34-1456KBL Coag (Bld)345 sHighBPoplar Springs Hospital HealthInterpretation and review of laboratory resultsAbnormalBon [facility]Paulding [facility] SecR[facility] HealthACT Coag (Bld)340 sHighBon [facility] Interpretation and review of laboratory resultsAbnormalBon [facility]Riverside [facility] Health [facility] HealthACT Coag (Bld)345 sHighBon [facility] Health Interpretation and review of laboratory resultsAbnormalBon [facility] Bon [facility]y HealthACT Coag (Bld)345 sHighBon [facility] Health Interpretation and review of laboratory resultsAbnormalBon [facility] VCUACT Coag (Bld)304 sHighBon [facility] Interpretation and review of laboratory resultsAbnormalBon [facility] Bon [facility] CenterBUN, POCon 76-87-3811Eucb nitrogen [Mass/Vol]33 mg/dL High8-26Martins Ferry HospitalCBC with Auto Differentialon 09-10-2025 Basophils (Bld) [#/Vol]0.11 10*3/uLBon [facility] CenterBasophils/100 WBC (Bld)1 %0 - 2 %[facility] HospitalEosinophils (Bld) [#/Vol]0.18 10*3/uLBon [facility] CenterEosinophils/100 WBC (Bld)1 %1 - 4 %[facility] Erythrocyte distribution width (RBC) [Ratio]15.9 %High11.8 - 14.4 %[facility] HospitalHematocrit (Bld) [Volume fraction]40.2 %36.3 - 47.1 %[facility] HospitalHemoglobin (Bld) [Mass/Vol]12.8 g/dL11.9 - 15.1 g/dLBon [facility] Medical CenterImmature granulocytes (Bld) [#/Vol]0.16 10*3/uLBon [facility] CenterImmature granulocytes/100 WBC (Bld)1 %Rahm4Gqn [facility] Interpretation and review of laboratory resultsAbnormJohn [facility] Medical Center Lymphocytes/100 WBC (Bld)20 %Low24 - 43 %[facility] HospitalLymphocytes/100 WBC (Bld)3.02 %[facility] HospitalH (RBC) [Entitic mass]29.2 pg25.2 - 33.[address] [facility] Medical CenterHC (RBC) [Mass/Vol]31.8 g/dL28.4 - 34.8 g/dLBon SecUC Medical CenterV (RBC) [Entitic vol]91.8 fL82.6 - 102.9 fLBon Secours Richmond Community HospitalMonocytes/100 WBC (Bld)5 %3 - 12 %[facility] Monocytes/100 WBC (Bld)0.78 %[facility] CenterOlympic Memorial Hospitaly HealthNeutrophils/100 WBC (Bld)72 %High36 - 65 %[facility] HealthNucleated RBC/100 WBC (Bld) [Ratio]0.0 % 0.0 per 100 WBCBon Secours [facility] Centery HealthPlatelet, Bgsyqdbcohee403Khr [facility] HealthPlatelets (Bld) [#/Vol]See Reflexed IPF ResultBon SecOlympic Memorial Hospitaly HealthPlatelets reticulated/100 platelets Auto (Bld)8.2 %1.1 - 10.3 %Bon SecOlympic Memorial Hospitaly HealthRBC (Bld) [#/Vol]4.38 10*6/uL3.95 - 5.11 m/uLBon Secours [facility] Centery HealthRBC (Bld) [#/Vol]ANISOCYTOSIS PRESENTBon [facility] Hospitaly HealthSegmented neutrophils/100 WBC (Bld)10.90 %HighBon SecOlympic Memorial Hospitaly HealthWBC other (Bld) [#/Vol]15.2HighBon Sec[facility] HealthBon SecOlympic Memorial Hospitaly HealthCBC with Diffon 85-07-1739Owj. Basophil0.11 k/uLNormal0.00-0.20[facility] Comment on above:Performed By: #### ALIREZABFR ####[facility] [address] [place], [place] [id number] Lab Director: Raymond Cavazos MD#### CAITLIN MARIANO ####[facility] CenterArch Rock Corporation [address]ptgxqdz[address] [place], [place] [id number] [facility] Director: Tosha Lagunas.Imm.Granulocyte0.16 k/uLNormal0.00-0.30[facility] HospitalComment on above:Performed By: #### AHBFR ####[facility] [address] [place], [place] [address] Lab Director: Raymond Cavazos MD#### MONTSERRAT CDP ####[employer] [address] [place] [id number] Lab Director: Tosha Lagunas.Neutrophil (Seg)10.90 k/uLHigh1.50-8.10[facility] HospitalComment on above:Performed By: #### AHBFR ####[facility] [address] [place] [address] Lab Director: Raymond Cavazos MD#### JENNIECT, CDP ####[address] [address] Lab Director: Haja Franz MDBasophils/100 WBC (Bld)1 %Normal0-2MAtascadero State Hospital Comment on above:Performed By: #### AHBFR ####[facility] [address] [place] [address] Lab Director: Raymond Cavazos MD#### MONTSERRAT, CDP ####[place] [address] Lab Director: Haja Franz MDEosinophils (Bld) [#/Vol]0.18 10*3/uLNormal 0.00-0.44[facility] HospitalComment on above:Performed By: #### AHBFR ####[facility] [address] [place] [address] Lab Director: Raymond Cavazos MD#### RETCT, CDP ####[place] [address] Lab Director: Haja Franz MDEosinophils/100 WBC (Bld)1 %Normal1-4[facility] Comment on above:Performed By: #### AHBFR ####[facility] [address] [place] [address] Lab Director: Raymond Cavazos MD#### RETCT, CDP ####[facility] [address] [place] [address] Lab Director: Haja Franz MDErythrocyte distribution width (RBC) [Ratio]15.9 % High11.8-14.4[facility] HospitalComment on above:Performed By: #### AHBFR ####[facility] [address] [place] [address] Lab Director: Raymond Cavazos MD#### RETCT, CDP ####[facility] [address] [place] [address] Lab Director: Haja Franz MDHematocrit (Bld) [Volume fraction]40.2 %Voaody90.3-47.1MAtascadero State HospitalComment on above:Performed By: #### AHBFR ####[facility] [address] [place] [address] Lab Director: Raymond Cavazos MD#### MONTSERRAT, CDP ####[place] [address] Lab Director: Haja Franz MDHemoglobin (Bld) [Mass/Vol] 12.8 g/hOXmpzzr56.9-15.1MAtascadero State HospitalComment on above: Performed By: #### AHBFR ####[facility] [address] [place] [address] Lab Director: Raymond Cavazos MD#### MONTSERRAT, CDP ####[facility] [address]qhsmjjey[address] [place] [address] Lab Director: Kd Lagunas granulocytes/100 WBC (Bld)1 %Xyfj5AdppeMartins Ferry HospitalComment on above:Performed By: #### AHBFR ####[facility] [address] [place] [address] Lab Director: Raymond Cavazos MD#### RETCT, CDP ####[facility] [address] [place] [address] Lab Director: Haja Franz MDLymphocytes (Bld) [#/Vol]3.02 10*3/uLNormal 1.10-3.70[facility] HospitalComment on above:Performed By: #### AHBFR ####[facility] [address] [place] [address] Lab Director: Raymond Cavazos MD#### RETCT, CDP ####[facility] [address] [place] [address] Lab Director: Haja Franz MDLymphocytes/100 WBC (Bld)20 %Sru35-82MptvzMartins Ferry Hospital Comment on above:Performed By: #### AHBFR ####[facility] [address] [place] [address] Lab Director: Raymond Cavazos MD#### MONTSERRAT, CDP ####[facility] [address] [place] [address] Lab Director: CAMILLA Lagunas (RBC) [Entitic mass]29.2 nkEodryt71.2-33.5[facility] HospitalComment on above:Performed By: #### AHBFR ####[facility] [address] [id number] Lab Director: Raymond Cavazos MD#### MONTSERRAT, CDP ####[facility] [address] [place] [address] Lab Director: CAMILLA LagunasC (RBC) [Mass/Vol]31.8 g/dL Vnwsct95.4-34.8[facility] HospitalComment on above:Performed By: #### AHBFR ####[facility] [address] [id number] Lab Director: Raymond Cavazos MD#### RETCT, CDP ####[facility] [address] [place] [address] Lab Director: Haja Madoff, MDMCV (RBC) [Entitic vol]91.8 qRLkvxvh43.6-102.9[facility] HospitalComment on above:Performed By: #### AHBFR ####[facility] [address]ct[address] [place] [address] Lab Director: Raymond Cavazos MD#### RETCT, CDP ####[facility] [address] [place] [phone] Director: EMELIA Lagunasonocytes (Bld) [#/Vol]0.78 10*3/uLNormal 0.10-1.20[facility] HospitalComment on above:Performed By: #### AHBFR ####[facility] [address] [place] [address] Lab Director: Raymond Cavazos MD#### RETCIARA, CDP ####[facility] [address]ns[address] [place] [address] Lab Director: EMELIA Lagunasonocytes/100 WBC (Bld)5 %Normal3-12[facility] Comment on above:Performed By: #### AHBFR ####[facility] [address] [place] [address] Lab Director: Raymond Cavazos MD#### MONTSERRAT, CDP ####[facility] [address]im[address]ym[address] [place] [address] Lab Director: Haja Franz MDNeutrophil (Seg)72 %Qtnc45-02MmvshMartins Ferry HospitalComment on above:Performed By: #### AHBFR ####[facility] [address]yc[address] [place] [address] Lab Director: Raymond Cavazos MD#### RETCT, CDP ####[facility] Jowejxe[address] [place] [phone] Director: Haja Franz MDNRBC Automated0.0 per 100 WBCNormal0.0[facility] HospitalComment on above:Performed By: #### AHBFR ####[facility] [address] [place] [address] Lab Director: Raymond Cavazos MD#### RETCT, CDP ####[facility] [address] [place] [address] Lab Director: Sarah Lagunas CountSee Reflexed IPF NqtmviZkfugk000-717JvikkMartins Ferry HospitalComment on above: Performed By: #### AHBFR ####[facility] [address] [place] [address] Lab Director: Raymond Cavazos MD#### MONTSERRAT, CDP ####[place] [address] Lab Director: Sarah Lagunas Fluoresc.201 k/wFKzpnwv090-108JkzwjMartins Ferry HospitalComment on above:Performed By: #### AHBFR ####[facility] [address] [place] [address] Lab Director: Raymond Cavazos MD#### MONTSERRAT, CDP ####[place] [address] Lab Director: CARLI Lagunas Immature Fract.8.2 %Normal1.1-10.3[facility] CampusComment on above:Performed By: #### AHBFR ####[facility] [address] [place] [address] Lab Director: Raymond Cavazos MD#### RETCT, CDP ####[facility] [address] [place] [address] Lab Director: JOSE LagunasBC (Bld) [#/Vol]4.38 10*6/uL Normal3.95-5.11[facility] Medical CenterComment on above:Performed By: #### AHBFR ####[facility] [address]hyhq[address] [place] [address] Lab Director: Raymond Cavazos MD#### RETCT, CDP ####[facility] [address] [place] [address] Lab Director: ERNA Lagunas morphology finding Nom (Bld)ANISOCYTOSIS PRESENTNormalMartins Ferry HospitalComment on above:Performed By: #### AHBFR ####[facility] [address]uf[address] [place] [address] Lab Director: Raymond Cavazos MD#### JENNIECT, CDP ####[facility] [address] [place] [address] Lab Director: Haja Franz MDWBC (Bld) [#/Vol]15.2 10*3/uL High3.5-11.3MAtascadero State HospitalComment on above:Performed By: #### AHBFR ####[facility] [address] [place] [address] Lab Director: Raymond Cavazos MD#### RETCT, CDP ####[facility] [address] [place] [id number] Lab Director: Haja Franz MDCHLORIDE (POC)on 99-36-4274Zvjlgrol [Moles/Vol]107 mmol/L98 - 107 mmol/LBon Secours Mercy HealthChloride (POC)on 15-75-7721Xgnowywq [Moles/Vol]107 mmol/DXxnydd63-395LixsiMartins Ferry HospitalComp Metabolic Pr/rfx MGon 09-01-9915Ocsuapw [Mass/Vol]3.4 g/dLLow3.5-5.2Mkettering health miamisburgy [facility] Comment on above:Performed By: #### CMPX, HAPT, LD #### [facility] [address] [place] [address] [employer] Assembler: Haja Franz MDAlbumin/Glob Ratio1.0Egxcgj9.0-2.5[facility] HospitalComment on above:Performed By: #### CMPX, HAPT, LD #### [facility] [address] [place] [address] [employer] As[employer]er: Sully Lagunaskaline Lbra300 U/FCknf22-656GzyyzMartins Ferry HospitalComment on above:Performed By: #### CMPX, HAPT, LD #### [facility] [address] [place] [address] [employer] As[employer]er: Haja rFanz MDALT [Catalytic activity/Vol]19 U/YZyedvm44-16 [facility] HospitalComment on above:Performed By: #### CMPX, HAPT, LD #### [address] [address] [employer] Assembler: Haja Franz MDAnion gap [Moles/Vol]8 mmol/LLow9-16[facility] HospitalComment on above:Performed By: #### CMPX, HAPT, LD #### [facility] [address] [address] [employer] As[employer]er: Haja Franz MDAST [Catalytic activity/Vol]80 U/RAhec48-11QgcucMartins Ferry HospitalComment on above:Result Comment: Specimen hemolysis has exceeded the interference as defined by Christianne. Value may be falsely increased. Suggest recollection if clinically indicated.Performed By: #### CMPX, HAPT, LD #### [facility] [employer] [address] [place] [address] [employer] As[employer]er: Haja Franz MDBilirubin [Mass/Vol]2.1 mg/dLHigh0.0-1.2MAtascadero State HospitalComment on above:Performed By: #### CMPX, HAPT, LD #### [facility] [employer] [address] [place] [address] [employer] As[employer]er: BOSSMAN Lagunasalcium [Mass/Vol]7.9 mg/dLLow8.6-10.4[facility] HospitalComment on above:Performed By: #### CMPX HAPT, LD #### [facility] [place] [address] [employer] Assembler: BOSSMAN Lagunashloride [Moles/Vol]111 mmol/TCees73-785NvagoMartins Ferry HospitalComment on above:Performed By: #### CMPX HAPT, LD #### [facility] [address] [place] [address] [employer] As[employer]er: Haja Franz MDCO2 [Moles/Vol]20 mmol/VDgxawg97-75PmiuxMartins Ferry HospitalComment on above:Performed By: #### CMPX HAPT, LD #### [facility] [address] [place] [address] [employer] As[employer]er: BOSSMAN Lagunasreatinine [Mass/Vol]1.6 mg/dLHigh0.6-0.9[facility] HospitalComment on above:Performed By: #### CMPX HAPT, LD #### [facility] [address] [place] [address] [employer]er: Haja Franz MDGFR/1.73 sq M.predicted among non-blacks MDRD (S/P/Bld) [Vol rate/Area]37 mL/min/{1.73_m2}Low>60[facility]erry HospitalComment on above:Result Comment: These results are [...] #### CMPX, HAPT, LD #### [facility] [address] [place] [address] [employer]er: Haja Franz MDGlucose [Mass/Vol]210 mg/pLQoep73-51ZavgcAtascadero State HospitalComment on above:Performed By: #### CMPX, HAPT, LD #### [facility] [address] [place] [address] [employer]er: Haja Franz MDPotassium [Moles/Vol]5.7 mmol/LHigh3.7-5.3MAtascadero State HospitalComment on above:Result Comment: Specimen hemolysis has exceeded the interference as defined by Christianne. Value may be falsely increased. Suggest recollection if clinically indicated.Performed By: #### CMPX, HAPT, LD #### [facility] [address] [place] [address] [employer]er: Haja Franz MDProtein [Mass/Vol]6.5 g/dLLow6.6-8.7[facility]erry HospitalComment on above:Performed By: #### CMPX, HAPT, LD #### [facility] [address] [place] [address] [employer] As[employer]er: JOSEPHINE Lagunasodium [Moles/Vol]139 mmol/CZizdun035-965RwwjgMartins Ferry HospitalComment on above:Performed By: #### CMPX, HAPT, LD #### [facility] [address] [place] [address] [employer] As[employer]er: Haja Franz MDUrea nitrogen [Mass/Vol]37 mg/dLHigh6-20[facility] HospitalComment on above:Performed By: #### CMPX, HAPT, LD #### [facility] [address] [place] [address] [employer] As[employer]er: BOSSMAN Lagunasomprehensive Metabolic Panel w/ Reflex to MGon 30-63-8182Vuxmzbz [Mass/Vol]3.4 g/dLLow3.5 - 5.2 g/dLBon [facility] Albumin/Globulin [Mass ratio]1.1 {ratio}1.0 - 2.5[facility] HealthALP [Catalytic activity/Vol]122 U/LHigh35 - 104 U/LBon Sec[facility] HealthALT [Catalytic activity/Vol]19 U/L10 - 35 U/LBon SecKettering Health MiamisburgAnion gap [Moles/Vol]8 mmol/LLow9 - 16 mmol/LBon SecRiverside Medical Center HealthAST [Catalytic activity/Vol]80 U/LHigh10 - 35 U/LBon [facility] HealthComment on above: Specimen hemolysis has exceeded the interference as defined by Christianne. Value may be falsely increased. Suggest recollection if clinically indicated. Bilirubin [Mass/Vol]2.1 mg/dLHigh0.0 - 1.2 mg/dLBon SecRiverside Medical Center HealthCalcium [Mass/Vol]7.9 mg/dLLow8.6 - 10.4 mg/dLBon [facility] MesoCoat HealthChloride [Moles/Vol]111 mmol/LHigh98 - 107 mmol/LBon [facility] HealthCO2 [Moles/Vol] 20 mmol/L20 - 31 mmol/LBon [facility] CenterCreatinine [Mass/Vol]1.6 mg/dL High0.6 - 0.9 mg/dLBon [facility] PhotobucketEst, Glom Filt Ybfa76Ndn- PINFBon [facility] CenterComment on above: These results are not intended [...] that affects renal tubular secretion. Glucose [Mass/Vol]210 mg/hNAvil92 - 99 mg/dLBon [facility] Centerours MesoCoat HealthPotassium [Moles/Vol]5.7 mmol/LHigh3.7 - 5.3 mmol/LBon [facility] HealthComment on above:Specimen hemolysis has exceeded the interference as defined by Christianne. Value may be falsely increased. Suggest recollection if clinically indicated. Protein [Mass/Vol]6.5 g/dLLow6.6 - 8.7 g/dLBon [facility] CenterSodium [Moles/Vol]139 mmol/L136 - 145 mmol/LBon [facility] CenterUrea nitrogen [Mass/Vol]37 mg/dLHigh6 - 20 mg/dLBon [facility] CenterCreatinine W/GFR Point of Careon 44-09-6025Pwgucunldm [Mass/Vol]2.1 mg/dLHigh0.51 - 1.19 mg/dLBon [facility] CentereGFR, ESJ95Zdx- PINFBon [facility] CenterComment on above: These results are not intended [...] affects renal tubular secretion. Creatinine w/GFR, POCon 22-88-8440Otomhuxegf [Mass/Vol]2.1 mg/dLHigh0.51-1.19 [facility] HospitalGFR/1.73 sq M.predicted among non-blacks MDRD (S/P/Bld) [Vol rate/Area]27 mL/min/{1.73_m2}Low>60[facility] CampusComment on above:Result Comment: These results are not [...] therapy that affects renal tubular secretion.Glucose (POC)on 24-28-3692Ymgybdv [Mass/Vol]148 mg/cMAghw32-557Njwkc [facility] CampusGlucose,Whole Blood on 93-19-5781Riwmoua [Mass/Vol]189 mg/iXUemu28-822Wklqq [facility] CampusHaptoglobinon 53-19-9481Qyuojernonv [Mass/Vol]141 mg/dL30 - 200 mg/dLBon [facility] CenterComment on above:Specimen hemolysis has exceeded the interference as defined by Christianne. Value may be falsely decreased. Suggest recollection if clinically indicated. Qgtoslwbekh403 mg/tZYmkzyu26-011ZdhqhMartins Ferry HospitalComment on above:Result Comment: Specimen hemolysis has exceeded the interference as defined by Christianne. Value may be falsely decreased. Suggest recollection if clinically indicated.Performed By: #### CMPX HAPT, LD #### [employer] [address] [place], [place] [id number] [employer] As[employer]er: Haja Franz MDHemoglobin and hematocrit, bloodon 09-10-2025 Hematocrit (Bld) [Volume fraction]43 %36 - 46 %[facility] Hemoglobin (Bld) [Mass/Vol]14.5 g/dL12.0 - 16.0 g/dLBon [facility] Hgb/Hct, POCon 47-57-6056Gvilsompto (Bld) [Volume fraction]43 %Ywhtqs16-67EzpoxMartins Ferry HospitalHemoglobin (Bld) [Mass/Vol]14.5 g/eDSnlbqs88.0-16.0 [facility] HospitalLactate Dehydrogenaseon 26-77-0630MMP [Catalytic activity/Vol]383 U/GNsmb277 - 214 U/LBon [facility] CenterComment on above: Specimen hemolysis has exceeded the interference as defined by Christianne. Value may be falsely increased. Suggest recollection if clinically indicated. LDH [Catalytic activity/Vol]383 U/QJint404-285WtsyiMartins Ferry Hospital Comment on above:Result Comment: Specimen hemolysis has exceeded the interference as defined by Christianne. Value may be falsely increased. Suggest recollection if clinically indicated.Performed By: #### CMPX HAPT, LD #### [employer] [address] [place] [address] [employer] As[employer]er: Haja Franz MDNo Panel Informationon 61-40-1314Kiybgqcexmotqq and review of laboratory resultsAbnoalUVA Health University HospitalInterpretation and review of laboratory resultsAbnormRiverside Shore Memorial HospitalC Glucose Fingerstickon 31-74-7999Cptuzqy [Mass/Vol]189 mg/bXRmst34 - 105 mg/dLBon [facility] CenterInterpretation and review of laboratory resultsAbnormDominion HospitalPOCT Glucoseon 40-53-1538Qurjheg [Mass/Vol]148 mg/zLTnht90 - 100 mg/dLBon [facility] HospitalCT urea (BUN)on 50-34-9581Okck nitrogen [Mass/Vol]33 mg/dL High8 - 26 mg/dLBon [facility] CenterPOTASSIUM (POC)on 22-24-2563Sjehgnjhe [Moles/Vol]4.9 mmol/LHigh3.5 - 4.5 mmol/LBon [facility] CenterPREVIOUS SPECIMENon 42-36-2177Thz [facility] CenterPlatelet Counton 09-10-2025 Platelets (Bld) [#/Vol]184 10*3/uLBon [facility] Health CenterPlatelets (Bld) [#/Vol]184 10*3/kKJcvpqm212-420JftlkMartins Ferry HospitalComment on above:Performed By: #### PLT #### [facility] [address] [place], [place] [id number] [employer] Assembler: Katlin Lagunasium (POC)on 05-11-2160Zlmgnhujg [Moles/Vol]4.9 mmol/LHigh3.5-4.5Mart[facility] Ferry HospitalRetic Counton 32-13-8424Gpmbohxc Retic0.113 M/uLHigh0.030-0.080[facility]erry HospitalComment on above:Performed By: #### AHBFR ####[facility] [address] [place] [address] Lab Director: Raymond Cavazos MD#### MONTSERRAT, CDP ####[facility] [address] [place], [place] 3099308 Lab Director: Haja Franz MDIRF17.1 %Normal2.7-18.3Mkettering health miamisburgy [facility] CampusComment on above:Performed By: #### AHBFR ####[facility] [address] [place], [place] [address] Lab Director: Raymond Cavazos MD#### MONTSERRAT, CDP ####[facility] [address] [place] [address] [id number] Lab Director: JOSE Lagunasetic Count2.6 %High0.5-1.9[facility] Ferry HospitalComment on above:Performed By: #### AHBFR ####[facility] [address] [place] [address] Lab Director: Raymond Cavazos MD#### MONTSERRAT, CDP ####[facility] [address] [place] [address] [phone] Director: JOSE Lagunasetic Nnnbdwqkgo22.6 uwEmloml99.2-35.7Mart[facility] Ferry HospitalComment on above:Performed By: #### AHBFR ####[facility] [address] [place] [address] [id number] Lab Director: Raymond Cavazos MD#### MONTSERRAT, CDP ####[facility] [address] [place] [address] [id number] Lab Director: JOSE Lagunaseticulocyteson 09-10-2025 Immature reticulocytes/Total reticulocytes (Bld)17.1 %2.7 - 18.3 %bVisual SecIntelligent Data Sensor Devicesy HealthInterpretation and review of laboratory resultsAbnormalBon SecIntelligent Data Sensor Devicesy HealthRetic Qtphdfujle21.6 pg28.2 - 35.7 pgBon [facility] Reticulocytes (Bld) [#/Vol]0.113 10*3/uLHighBon [facility] Reticulocytes/100 RBC (Bld)2.6 %High0.5 - 1.9 %[facility] HealthBon [facility] HealthSODIUM (POC)on 10-38-5371Qgouui [Moles/Vol]144 mmol/L138 - 146 mmol/LBon [facility] HealthSodium (POC)on 75-75-2897Lhegdv [Moles/Vol]144 mmol/PBnwzay272-110NvunbSierra Nevada Memorial HospitalUrinalysis, Routineon 46-77-9164Vqhwgblqi, SemiQt,UrNegativeNormalNEGMartins Ferry Hospital Comment on above:Performed By: #### PLT #### [facility] [address] [place] [address] [employer] Assembler: Jovanny Lagunasood, UrineMODERATEAbnormalNEGMartins Ferry HospitalComment on above:Performed By: #### PLT #### [facility] [address] [place] [address] [employer]er: BOSSMAN Lagunaslarity (U)CloudyAbnormalCLEARMercGarden Grove Hospital and Medical CenterComment on above:Performed By: #### PLT #### [facility] [address] [place] [address] [employer] As[employer]er: BOSSMAN Lagunasolor (U)YellowNormalYELMerSierra Nevada Memorial HospitalComment on above:Performed By: #### PLT #### [facility] [address] [place] [address] [employer] As[employer]er: Haja Franz MDGlucose Ql (U)3+ mg/dLAbnormalNEGMartins Ferry HospitalComment on above:Performed By: #### PLT #### [facility] [address] [place] [address] [employer] As[employer]er: Haja Franz MDKetones Ql (U)NegativeNormalNEGMerSierra Nevada Memorial HospitalComment on above:Performed By: #### PLT #### [facility] [address] [place] [address] [employer]er: Haja Franz MDLeukocyte esterase Test strip Ql (U)MODERATE AbnormalNEGMercy Brooklet Medical CenterComment on above:Performed By: #### PLT #### [facility] [address] [place] [address] [employer]er: Haja Franz MDNitrite,UrNegativeNormalNEGMartins Ferry HospitalComment on above:Performed By: #### PLT #### [facility] [address] [place] [address] [employer]er: MARIA ALEJANDRA Lagunas,Ur5.3Poznku7.0-8.0[facility] Ferry HospitalComment on above:Performed By: #### PLT #### [facility] [address] [place] [address] [employer]er: Conrado Lagunas Ql (U)2+ mg/dLAbnormalNEGMartins Ferry HospitalComment on above:Performed By: #### PLT #### [facility] [address] [place] [address] [address] [employer] Ii Assembler: JOSEPHINE Lagunaspec. Edison,Ur1.204Xfrypb5.003-1.030Martins Ferry HospitalComment on above:Performed By: #### PLT #### [facility] [address] [place] [address] [employer] Assembler: Fredo Lagunasbilinogen,UrNormalNormal0.0-1.0Martins Ferry HospitalComment on above:Performed By: #### PLT #### [facility] [address] [place] [address] [employer] Assembler: Haja Franz MDUrinalysis,Microon 28-07-5316OoqqvxkjMIQT AbnormalNONEMercGarden Grove Hospital and Medical CenterComment on above:Performed By: #### UMBELINDAO, UA ####[facility] [address] [place] [address] Lab Director: BOSSMAN Lagunasasts3 to 4Qelpvv5-3Lnpcg [facility] Comment on above:Performed By: ###ELIZABETH COLEMAN ####[facility] [address] [place] [address] LabDirector: Haja Franz MDEpithelial cells LM Ql (Urine sed)0 TO 2Mssjjd5-2UrjsfMartins Ferry HospitalComment on above:Performed By: ###ELIZABETH COLEMAN ####[facility] [address] [place] [address] LabDirector: Haja Franz MDUrine RBC's0 TO 0RbiecyO85 Mart[facility] Ferry HospitalComment on above:Performed By: ###ELIZABETH COLEMAN ####[facility] [address] [place] [address] LabDirector: Jaz Lagunas WBC'sTOO NUMEROUS TO SCOVDImwnoqusO32NspujMartins Ferry HospitalComment on above:Performed By: ###ELIZABETH COLEMAN ####[facility] [address] [place] [address] LabDirector: DIANA LagunasA CORON EJECT FRAC WALL MOTIONon 64-25-5617KEZ CORON EJECT FRAC WALL MOTIONEXAMINATION: CTA OF [...] Trunk length 21mm. Right inferior pulmonary vein: Ivocyv76 x 22mm. Trunk length 12 mm. Left superior pulmonary vein: Fedavm90 x 19mm. Trunk length 22 mm. Left inferior pulmonary vein: Iavkui81 x 12mm. Trunk length 14 mm. LVEF [...] Signed by: Star Roberts MD 08/19/25 Final resultNormalMerSierra Nevada Memorial Hospital1. Pulmonary vein measurements as above. 2. Large amount of calcified plaque in the LAD. Suspect hemodynamically significant stenosis but difficult to quantify severity due to large amount of calcified plaque. 3. Extensive stenting of the left circumflex and right coronary artery. Decreased enhancement within the stents. 4. Total calcium score of 649 places patient in the 90th percentile for the patient's age. [facility] RIS CONSOLIDATEDEXAMINATION: CTA OF THE CORONARY ARTERIES [...] Trunk length 21mm. Right inferior pulmonary vein: Rkuuio62 x 22mm. Trunk length 12 mm. Left superior pulmonary vein: Agpqbc51 x 19mm. Trunk length 22 mm. Left inferior pulmonary vein: Muzaxz41 x 12mm. Trunk length 14 mm. LVEF [...] Trunk length 21mm. Right inferior pulmonary vein: Rgoyrr56 x 22mm. Trunk length 12 mm. Left superior pulmonary vein: Yhnzcx89 x 19mm. Trunk length 22 mm. Left inferior pulmonary vein: Vwlckq31 x 12mm. Trunk length 14 mm. LVEF [...] the 90th p (more content not included)...Bon PreedoCTA CORON EJECT FRAC WALL MOTIONOrdered By: Star Roberts on 48-84-8716Nsm [facility] Work Phone: CTA CORON EJECT FRAC WALL MOTIONon 18-74-6718Pucnsikov Study observation (narrative)[facility] PreedoCreatinine W/GFR Point of Careon 11-57-7338Meeknhrwdo [Mass/Vol]1.6 mg/dLHigh0.51 - 1.19 mg/dLBon PreedoeGFR, PVD40Awy- PINFBon Pres[facility] Medical CenterTrans Tasman ResourcesComment on above: These results are not intended [...] secretion. Interpretation and review of laboratory resultsAbnormalBon Preedo [facility]anner PreedoCreatinine w/GFR, POCon 84-35-4761Tfmkurrdea [Mass/Vol] 1.6 mg/dLHigh0.51-1.19Martins Ferry HospitalGFR/1.73 sq M.predicted among non-blacks MDRD (S/P/Bld) [Vol rate/Area]37 mL/min/{1.73_m2}Low>60MerSierra Nevada Memorial HospitalComment on above:Result Comment: These results are [...] that affects renal tubular secretion.Rambo 06-08-2025 Specimen: [id number] Received: 06/09/25 Status: FANNIE Best Num: [id number] Spec Type: Surgical Subm Dr: Rojelio Rojas MD Tissues: A Skin-Other than Cyst, tag, debridement or plastic repair (R MEDICAL CANTHUS) B Skin-Other than Cyst, tag, debridement or plastic repair (R CHEEK) C Skin-Other than Cyst, tag, debridement or plastic repair (R DORSAL FOREARM) Procedures: HE/Getachew, Isis/Tavo L4/3 Age/ Patient Sex Location Account Attending Physician Dorothy Faria 60/F [place] [id number] Rojelio Rojas MD SPEC NUM: [id number] RECD: 06/09/25 STATUS: FANNIE BEST NUM: [id number] MARICHUY: 06/08/[address]: Rojelio Rojas MD ENTERED: 06/09/[address] [facility] [address]: SPEC TYPE: Surgical DEPT: S ENTERED BY: [id number] RECV BY: [id number] ORDERED: HE/6, Gross/Micro L4/3 ORDERED: HE/6, Gross/Micro [...] submitted in a single cassette. (1, ns, G59- 0047 A) FLAKO Specimen: [id number] Received: 06/09/25 Status: FANNIE Best Num: [id number] Spec Type: Surgical Subm Dr: Rojelio Rojas MD Tissues: A Skin-Other than Cyst, tag, debridement or plastic repair (R MEDICAL CANTHUS) B Skin-Other than Cyst, tag, debridement or plastic repair (R CHEEK) C Skin-Other than Cyst, tag, debridement or plastic repair (R DORSAL FOREARM) Procedures: Isis/Micro L4/3 Patient: Dorothy Faria [id number] (Continued) Specimen: [id number] Received: 06/09/25 (Continued) Gross Description (Continued) Signed (signature on file) Shaun Padilla MD 06/11/25 0852 Specimen: [id number] Received: 06/09/25 Status: FANNIE Best Num: [id number] Spec Type: Surgical Subm Dr: Rojelio Rojas MD Tissues: A Skin-Other than Cyst, tag, debridement or plastic repair (R MEDICAL CANTHUS) B Skin-Other than Cyst, tag, debridement or plastic repair (R CHEEK) C Skin-Other than Cyst, tag, debridement or plastic repair (R DORSAL FOREARM) Procedures: Isis/Micro L4/3 Patient: Dorothy Faria [id number] (Continued) Specimen: [id number] Received: 06/09/25 (Continued) Gross Description (Continued) Part B is received in formalin labeled with the patients name, date of , and R cheek is a perdomo-biswas, wrinkled, ovoid shave of skin, 1.2 x 0.8 x 0.2 cm. The specimen is inked black at the apparent point of attachment, serially sectioned, and entirely submitted in a single cassette. (1, ns, [id number] B) Part C is received in formalin labeled with the patients name, date of , and R dorsal forearm is a perdomo-biswas, crusted and wrinkled ovoid shave of skin, 1.6 x 1.2 x 0.3 cm. The specimen is inked black, serially sectioned, and entirely submitted in a single cassette. (1, ns, [id number] C) CPT Codes 56899 x 3 Specimen: [id number] Received: 06/09/25 Status: FANNIE Best Num: [id number] Spec Type: Surgical Subm Dr: Rojelio Miles (more content not included)... [facility] Physician [facility] CenterVascular duplex carotid bilateralOrdered By: Maria Luisa García on 82-00-1318Udro CCA dist EDV23.2 cm/s[facility] Work Phone: Left CCA dist PSV90.5 cm/s[facility] Work Phone: [phone] CCA mid EDV16.69 cm/s[facility] Work Phone: [phone] CCA mid PSV73.64 cm/s[facility] Work Phone: [phone] CCA prox EDV30.5 cm/s[facility] Work Phone: Left CCA prox ROH934.5 cm/s[facility] Work Phone: [phone] ECA EDV38.46 cm/s[facility] Work Phone: [phone] ECA NZT425 cm/s[facility] Work Phone: [phone] ICA dist EDV30.9 cm/s[facility] Work Phone: [phone] ICA dist PSV81.4 cm/s[facility] Work Phone: Left ICA mid EDV20.6 cm/s[facility] Work Phone: [phone] ICA mid PSV71 cm/s[facility] Work Phone: Left ICA prox EDV29.4 cm/s[facility] Work Phone: Left ICA prox THR874.1 cm/s[facility] Work Phone: Left [...] [facility] Work Phone: Right ECA SYN028.7 cm/s[facility] Work Phone: Right ICA dist EDV27.3 cm/s[facility] Work Phone: Right ICA dist PSV86.7 cm/s[facility] Work Phone: Right ICA mid EDV22.7 cm/s[facility] Work Phone: Right ICA mid PSV74.5 cm/s[facility] Work Phone: Right ICA prox EDV43.9 cm/s[facility] Work Phone: Right ICA prox BDP791.8 cm/sBon Sec[facility] [employer] Work Phone: Right ICA/CCA PSV2.1no unitsBon SecTrans [employer] Work Phone: Right vertebral EDV13.38 cm/sBon [facility]Trans [employer] Work Phone: [phone] vertebral PSV43.5 cm/sBon [facility] Work Phone: [facility] Work Phone: Vascular duplex carotid bilateralon 05-25-2025 [...] Carotid Artery: Patent. Vertebral Artery: Flow is antegrade.[facility] CV CPACSRadiology Study observation (narrative)Bon PreedoVascular duplex carotid bilateralOrdered By: Abdirizak Dejesus on 21-35-4513Hpsg bulb EDV24.1 cm/s[facility] [employer] Work Phone: Left bulb PSV88.7 cm/s[facility] [employer] Work Phone: Left CCA dist EDV18.0 cm/s[facility] [employer] Work Phone: Left CCA dist PSV72.3 cm/s[facility] [employer] Work Phone: Left CCA mid EDV28.92 cm/s[facility] [employer] Work Phone: Left CCA mid JLY686.61 cm/s[facility] [employer] Work Phone: Left CCA prox EDV25.7 cm/s[facility] Work Phone: Left CCA prox KXF020.6 cm/s[facility] Work Phone: Left ECA EDV8.08 cm/s[facility] Work Phone: Left ECA ZBZ348.8 cm/s[facility] Work Phone: Left [...] [facility] Work Phone: Right bulb RXJ227.9 cm/s[facility] Work Phone: Right [...] [facility] Work Phone: [phone] Dist Outflow BKX276.1 cm/s[facility] Work Phone: Right ECA EDV15.57 cm/s[facility] Work Phone: Right ECA PMS934.9 cm/s[facility] Work Phone: Right Graft 1CCA/ICA STENTBON [facility]OURS [facility] Work Phone: Right ICA dist EDV23.2 [...] [facility] Work Phone: Right Mid Outflow UKV494.2 cm/s[facility] [employer] Work Phone: Right Outflow Vessel EDV27.6 cm/s[facility] [employer] Work Phone: Right Outflow Vessel ZMF242.5 cm/s[facility] [employer] Work Phone: Right Prox Outflow EDV24.5 cm/s[facility] [employer] Work Phone: Right Prox Outflow PSV69.7 cm/s[facility] [employer] Work Phone: Right vertebral EDV16.70 cm/s[facility] [employer] Work Phone: Right vertebral PSV62.0 cm/s[facility] [employer] Work Phone: [employer] Work Phone: Vascular duplex carotid bilateralon 87-76-7541Elty (<50%) stenosis in the bilateral internal carotid [...] hemodynamically significant stenosis. Vertebral Artery: Flow is antegrade.[facility] CV CPACSVascular duplex carotid bilateralon 48-77-4557Mzvoauieq Study observation (narrative)[facility] HEALTH HOSPITALKiind.me30on 39-14-090554Fey patient is Moderately Stable - Low risk [...] are monitored and maintained or improved Outcome: ProgressingNormalUniversSelect Medical OhioHealth Rehabilitation Hospital - DublinB-TYPE NATRIURETIC PEPTIDEon 35-52-1185Pyvekoxfwck peptide B (Bld) [Mass/Vol]83 pg/mLNormal0-100 [facility] SystemComment on above:Performed By: #### [id number] #### [facility] (BEAKER) [address] [place], [place] [address]YEfq 21-32-3543OQ Attestation signed by Trey Euceda MD at [...] is performed under the ED CLIA certificate #[id number]. POCT GLUCOSE METER UNSOLICITED RESULTS - Abnormal Glucose POC 230 (*) Narrative: Waived Testing in the ED is performed under the ED CLIA certificate #[id number]. POCT GLUCOSE METER UNSOLICITED RESULTS - Abnormal Glucose POC 129 (*) Narrative: Waived Testing in the ED is performed under the ED CLIA certificate #[id number]. B-TYPE NATRIURETIC PEPTIDE - Normal BNP 83 POCT GLUCOSE METER POCT GLUCOSE METER POCT GLUCOSE METER POCT GLUCOSE METER Nutrition Screen Issues Requiring Follow-Up Follow-up with cardiology clinic with Dr. Musa within 1 month Outpatient Follow-Up No future appointments. Test Results Pending At DischargeNormalUniCorey HospitalPOCT GLUCOSE METER UNSOLICITED RESULTSon 58-77-0245Lvsthxw [Mass/Vol]129 mg/dLHigh 70-105UnWooster Community HospitalComment on above:Order Comment: Waived Testing in the ED is performed under the ED CLIA certificate #[id number].Result Comment: [email or web address] By: #### [id number] #### [facility] ([facility]ER) [address] [place], [place] [address]2hw 26-62-124164Mtz patient is Moderately Stable - Low risk [...] injury: Assess patient frequently for physical needs [place] fall precautions as indicated by assessment Instruct [...] are exacerbated and prevent overall improvement and dischargeNormalUniCorey Hospital30The patient is Moderately Stable - Low risk of patient condition declining or worsening The patient's goals for the shift include comfort and pain control. The clinical goals for the shift include stable hemodynamics and comfort. Over the shift, the patient is making progress towards these goals.Normal [facility] CenterANESon 61-50-2742HLIX Attestation signed by Luna Musa MD at 04/24/2024 8:29 AM f Patient: Dorothy Faria Procedure Information Date/Time: 04/24/24829 Procedure: Carotid angiogram - arch carotid and stent Location: [facility] ADOLESCENT COUNSELOR 2 [address] / [facility] (Cath) Providers: Luna Musa MD Clinical information reviewed: [employer] Physical Exam Airway Mallampati: II Cardiovascular Rhythm: regular Rate: normal Dental Pulmonary - normal exam Abdominal - normal exam Anesthesia Plan ASA 3 other (Conscious sedation) intravenous induction Anesthetic plan and risks discussed with patient. Use of blood products discussed with patient who consented to blood products. Plan discussed with attending. Additional Equipment RequestsNormalUniversity [facility] 05-58-8133EE Attestation signed by Luna Musa MD at [...] Back pain, COPD (chronic obstructive pulmonary disease) ([facility]), Diabetes ([facility]), and Tachycardia. Surgical History She has a [...] and plan to proceed with stenting if needed.NormalUnWooster Community HospitalNURSNOTEon 05-63-3856IMIKXZKS Report given to LEX Smith from Sara BURNETT Any medications or safety alerts were reviewed. Any pending diagnostics and notifications were also reviewed, as well as any safety concerns or issues, abnormal labs, abnormal imagining, and abnormal assessment findings. Questions were answered.NormalUnWooster Community HospitalPOCT GLUCOSE METER UNSOLICITED RESULTSon 98-01-8087Jzdnpls [Mass/Vol]230 mg/zSYjua72-355CbnnlcasxpWooster Community HospitalComment on above:Order Comment: Waived Testing in the ED is performed under the ED CLIA certificate #[id number].Result Comment: [email or web address] Performed By: #### [id number] #### [facility] (BEAKER) [address] [place], [place] [address]Rozdljv [Mass/Vol]204 mg/cXCtsy20-233DojtgktmobWooster Community HospitalComment on above:Order Comment: Waived Testing in the ED is performed under the ED CLIA certificate #[id number].Result Comment: [email or web address] Performed By: #### [id number] #### [facility] (BEAKER) [address] [place], [place] [address]Uvukap Onlyon 32-59-3294Ghxwkk [id number] Dorothy Faria 1965 F Date Provider Department Center 04/15/2024 [facility] VAS LAB MO HeartVAS No family history on fileNormalUniversity Wyandot Memorial HospitalNuclear stress test with myocardial perfusionOrdered By: Lazarus Keys on 62-30-8264Ccxidfkb Diastolic DZ46elTmSOZ [employer] Work Phone: Baseline MZ73kyuMGZ [employer] Work Phone: [phone] Systolic WJ734rkVdADW [employer] Work Phone: [phone] Stress EF71 %[facility] [employer] Work Phone: Recovery Stage 1 BP110/62mmHgBON SECSustain360Y HEALTH Work Phone: [phone] Stage 1 Onsypgfl4gsz:secBON [employer] Work Phone: Recovery Stage [address] BP[address]TSN [employer] Work Phone: Recovery Stage 2 Plvosksg8tei:secBON [employer] Work Phone: Recovery Stage [address] EZ77xzpHUU [employer] Work Phone: Recovery Stage 3 BP112/64mmHgBON [employer] [address] Work Phone: Recovery Stage 3 Qvntlyay0lbx:secBON [employer] Work Phone: Recovery Stage [address] OK59eyqTTB [employer] Work Phone: Recovery Stage 4 BP116/68mmHgBON [employer] Work Phone: Recovery Stage 4 Bfdoxmgz9mht:secBON [employer] Work Phone: Recovery Stage [address] OU20desEHF [employer] Work Phone: [phone] Diastolic QJ13avCsSZE [employer] Work Phone: [phone] Peak AQ676rmpNDS [employer] Work Phone: Stress Percent HR Jrtdjize16 %[employer] Work Phone: [phone] Rate Pressure Lbjmthh33136gvt*mmHgBON [employer] Work Phone: Stress Systolic GA685dcKnXXI [employer] Work Phone: Stress Target VE567ylfPEP [employer] Work Phone: TID1.07[facility] [employer] Work Phone: bon [facility] Work Phone: nuclear stress test with myocardial perfusionon 13-43-4521Wnvuu quality is excellent. ECG: Resting ECG demonstrates [...] The stress end diastolic cavity size is normal.[facility] CV [facility] STRESS Nuclear stress test with myocardial perfusionon 24-57-6166Qljmatwkh Study observation (narrative)[facility] SINUSES WO CONon 51-83-7082ZQ SINUSES WO CONEXAMINATION: CT SINUSES WO CON [...] Electronically authenticated by: LAZARUS PARRA Date: 2023-03-26 14:07[facility] HospitalCT LUNG CANCER SCREENINGon 93-09-1158VN LUNG CANCER SCREENING EXAMINATION: CT LUNG CANCER [...] Electronically authenticated by: LAZARUS PARRA Date: 2023-02-21 09:55[facility] SINUSES WO CONon 30-20-7351WK SINUSES WO CONEXAMINATION: CT SINUSES WO CON [...] Electronically authenticated by: LAZARUS PARRA Date: 2023-02-21 09:39[facility] HospitalANA by IFAon 78-41-2934Gtxvqokfvpl Antibodies, IFANegative NormalThe Mount St. Mary HospitalComment on above:Result Comment: Negative <1:80 Borderline 1:80 Positive >1:80 ICAP nomenclature: AC-0 For more information about Hep-2 cell patterns use ANApatterns.org, the official website for the International Consensus on Antinuclear Antibody (JACQUES) Patterns (ICAP).Performed By: #### CVDTBH #### [facility] [address] [place] [address] Dr. Efrain ZuñigaANTISTREPTOLYSIN O AB (ASO)on 55-00-1690Ndxgrksaidpgyrjr O Ab 36.5 IU/mLNormal0.0-200.0The [facility] Mary HospitalComment on above:Performed By: #### ASOAB #### [facility] [address] [address] [address] Efrain ZuñigaINSULINon 64-75-8752Rdvvxdo96.7 uIU/mLNormal2.6-24.9The [facility] Mary HospitalComment on above:Performed By: #### POCGLUC #### [facility] [address] [place] [address] Dr. Efrain ZuñigaRHEUMATOID FACTORon 83-37-8803LG Latex Turbid.<10.0Normal<14.0The [facility] [address] Mary HospitalComment on above:Performed By: #### RF #### [facility] [address] [place] [address] Dr. Efrain ZuñigaXR SINUSES 3 VIEWS OR GREATERon 74-02-9468XX SINUSES 3 VIEWS OR GREATEREXAMINATION: XR SINUSES [...] Electronically authenticated by: LAZARUS PARRA Date: 2023-02-02 06:55NoPremier Health [facility] AUTO DIFFon 11-43-3422WZLA #0.0 103/ulNormal0.0-0.1The [facility] Mary HospitalComment on above:Performed By: #### ASOAB #### [facility] [address] [address] [address] Efrain ZuñigaBasophils/100 WBC (Bld)0.4 %Normal0.2-2.0[facility] Comment on above:Performed By: #### ASOAB #### [facility] [address] [address] [address] Efrain Jaimes #0.1 103/ulNormal0.0-0.7The [facility] St. Mary HospitalComment on above: Performed By: #### ASOAB #### [facility] [address] [address] [address] Efrain Millerosinophils/100 WBC (Bld)1.2 %Normal0.9-7.0The [facility] Comment on above:Performed By: #### ASOAB #### [facility] [address] [address] [address] Efrain Millerrythrocyte distribution width (RBC) [Ratio]14.6 %Xhlswf46.0-15.[address] Mary HospitalComment on above:Performed By: #### ASOAB #### [facility] [address] [address] [address] Efrain ZuñigaHematocrit (Bld) [Volume fraction]35.9 %Critically low36.0-48.[address] Mary HospitalComment on above:Performed By: #### ASOAB #### [facility] [address] [address] [address] Efrain ZuñigaHemoglobin (Bld) [Mass/Vol]11.9 g/dLCritically low12.0-16.0The [facility] HospitalComment on above:Performed By: #### ASOAB #### [facility] [address] [address] [address] Efrain Bernal #0.09 10e3/ulCritically high0.00-0.03The [facility] Comment on above:Performed By: #### ASOAB #### [facility] [address] [place] [address] Dr. Efrain Bernal %0.9 %Critically high0.0-0.5The [facility]. Mary HospitalComment on above:Performed By: #### ASOAB #### [facility] [address] [place] [address] Dr. Efrain Arteaga #2.7 103/ulNormal1.2-3.8The [facility]. Mary HospitalComment on above:Performed By: #### ASOAB #### [facility] [address] [place] [address] Dr. Efrain Coolhocytes/100 WBC (Bld)26.3 %Mrmuss03.5-60.0The [facility] Mary HospitalComment on above:Performed By: #### ASOAB #### [facility] [address] [place] [address] Dr. Efrain TalleyUAL DIFF REQNONormalThe Mount St. Mary HospitalComment on above: Performed By: #### ASOAB #### [facility] [address] [place] [address] Dr. Efrain Zhang (RBC) [Entitic mass]29.8 ocOmbvna96.7-34.0The [facility] Mary HospitalComment on above:Performed By: #### ASOAB #### [facility] [address] [place] [address] Dr. Efrain Cottrell (RBC) [Mass/Vol]33.1 g/zSAfzgny29.9-35.2The [facility] Mary HospitalComment on above:Performed By: #### ASOAB #### [facility] [address] [place] [address] Dr. Efrain CottrellV (RBC) [Entitic vol]90.0 xXRbzcga80.0-99.0The [facility] HospitalComment on above:Performed By: #### ASOAB #### [facility] [address] [place] [address] Dr. Efrain Bobby #0.7 103/ulNormal0.3-0.8The [facility] Mary HospitalComment on above:Performed By: #### ASOAB #### [facility] [address] [place] [address] Dr. Efrain Rosenbaumocytes/100 WBC (Bld)6.7 %Normal1.7-12.0The [facility] Comment on above:Performed By: #### ASOAB #### [facility] [address] [place] [address] Dr. Efrain Lugo #6.6 103/ulCritically high1.4-6.5The [facility] Comment on above:Performed By: #### ASOAB #### [facility] [address] [place] [address] Dr. Efrain Garcíautrophils/100 WBC (Bld)64.5 %Bakdkf81.0-75.0The [facility] Mary HospitalComment on above:Performed By: #### ASOAB #### [facility] [address] [place] [address] Dr. Efrain Milianlet mean volume (Bld) [Entitic vol]11.3 fLNormal9.5-13.5The [facility] Mary HospitalComment on above:Performed By: #### ASOAB #### [facility] [address] [place] [address] Dr. Efrain DuronT190 103/iaPlqqwi859-417Lqy [facility] St[facility] Mary HospitalComment on above: Performed By: #### ASOAB #### [facility] [address] [place] [address] Dr. Efrain PhilippeC3.99 106/ulCritically low4.20-5.40The [facility] St. Mary HospitalComment on above:Performed By: #### ASOAB #### [facility] [address] [place] [address] Dr. Efrain ZuñigaWBC10.2 103/ulNormal4.0-11.0The [facility] HospitalComment on above:Performed By: #### ASOAB #### [facility] [address] [place] [address] Dr. Efrain ZuñigaCRFabiano 46-57-4645IYM [Mass/Vol]mg/LNormal<=1.0The [facility] Mary HospitalComment on above:Performed By: #### RF #### [facility] [address] [place] [address] Dr. Efrain ZuñigaFRERICKA THYROXINE INDEX T7on 30-83-1044VEN5.70Yehxsw1.30-4.50The [facility] Mary HospitalComment on above:Performed By: #### RF #### [facility] [address] [place] [address] Dr. Efrain ZuñigaT3U33.0 %Lfrgdm78.0-39.0The [facility] Mary HospitalComment on above: Performed By: #### RF #### [facility] [address] [place] [address] Dr. Efrain ZuñigaT4 [Mass/Vol]7.00 ug/dLNormal4.80-13.90The [facility] Comment on above:Performed By: #### RF #### [facility] [address] [place] [address] Dr. Efrain ZuñigaGLYCOHEMOGLOBIN A1Con 99-62-7078SWM RECOMMENDATIONSEE BELOWNormal The [facility] St[facility] Mary HospitalComment on above:Result Comment: ADA RECOMMENDED LIMIT 4.0 - 6.0 ADA THERAPEUTIC TARGET < 7.0 ACTION SUGGESTED > 7.0Performed By: #### POCGLUC #### [facility] [address] [place] [address] Dr. Efrain ZuñigaGlucose [Mass/Vol]186 mg/dLNormalThe Mount St. Mary HospitalComment on above:Performed By: #### POCGLUC #### [facility] [address] [place] [address] Dr. Efrain ZuñigaHbA1c (Bld) [Mass fraction]8.1 %Critically high4.5-6.2The [facility] Mary HospitalComment on above:Performed By: #### POCGLUC #### [facility] [address] [place] [address] Dr. Efrain Parnell 77-92-9002Qlsf [Mass/Vol]67.0 ug/dONhbpzq22.0-170.0The [facility] HospitalComment on above:Performed By: #### CVDTBH #### [facility] [address] [place] [address] Dr. Efrain MorrisID PROFILEon 62-35-0648GOQA-HDL RATIO NORMSEE BELOWCleveland Clinic Union HospitalComment on above:Result Comment: 3.3 - 4.4 LOW RISK 4.4 - 7.1 AVERAGE RISK 7.1 - 11.0 MODERATE RISK >11.0 HIGH RISKPerformed By: #### RF #### [facility] [address] [place] [address] Dr. Efrain Buchananesterol [Mass/Vol]104 mg/dLNormal<=200The [facility] Comment on above:Performed By: #### RF #### [facility] [address] [place] [address] Dr. Efrain ZuñigaCholesterol in HDL [Mass/Vol]28 mg/dLCritically zra42-54Txd [facility] HospitalComment on above:Performed By: #### RF #### [facility] [address] [place] [address] Dr. Efrain ZuñigaCholesterol in LDL [Mass/Vol]52.6 mg/dLCleveland Clinic Union HospitalComment on above:Performed By: #### RF #### [facility] [address] [place] [address] Dr. Efrain ZuñigaCholesterol.total/Cholesterol in HDL [Mass ratio]3.7 {ratio} NormalThe [facility] St. Mary HospitalComment on above:Performed By: #### RF #### [facility] [address] [place] [address] Dr. Efrain Craft NORMAL> or = 60 mg/dl - LOW CARDIOVASCULAR RISK <40 mg/dl - HIGH CARDIOVASCULAR RISKCleveland Clinic Union HospitalComment on above:Performed By: #### RF #### [facility] [address] [place] [address] Dr. Efrain Aguilar CALC NORMALSEE BELOWNoHocking Valley Community HospitalComment on above:Result Comment: <100 mg/dl OPTIMAL 100 - 129 mg/dl NEAR OR ABOVE OPTIMAL 130 - 159 mg/dl BORDERLINE HIGH 160 - 189 mg/dl HIGH >190 mg/dl VERY HIGH Performed By: #### RF #### [facility] [address] [place] [address] Dr. Efrain ZuñigaTriglyceride [Mass/Vol]117 mg/dLNormal<=150The [facility] Comment on above:Performed By: #### RF #### [facility] [address] [place] [address] Dr. Efrain Hector CALC23.4 mg/dLNoHocking Valley Community HospitalComment on above: Performed By: #### RF #### [facility] [address] [place] [address] Dr. Efrain ZuñigaPROF 14(COMP METB)on 99-23-1677Iiqewge [Mass/Vol]3.1 g/dL Critically low3.4-5.0The [facility] HospitalComment on above:Performed By: #### CRP, CMP, TSH, T7, LIPID, URIC #### [facility] [address] [place] [address] Dr. Efrain ZuñigaAlbumin/Globulin [Mass ratio]0.9 {ratio}NormalThe [facility] St. Mary HospitalComment on above:Performed By: #### CRP, CMP, TSH, T7, LIPID, URIC #### [facility] [address] [place] [address] Dr. Efrain ZuñigaALP [Catalytic activity/Vol]132 U/LCritically gzgr55-113Ubr [facility] HospitalComment on above:Performed By: #### CRP, CMP, TSH, T7, LIPID, URIC #### [facility] [address] [place] [address] Dr. Efrain Sweeney [Catalytic activity/Vol]40 U/LHenuft46-50Jyy [facility] HospitalComment on above:Performed By: #### CRP, CMP, TSH, T7, LIPID, URIC #### [facility] [address] [place] [address] Dr. Efrain Torres gap [Moles/Vol]14.6 mmol/LNormalThe [facility] Comment on above:Performed By: #### CRP, CMP, TSH, T7, LIPID, URIC #### [facility] [address] [place] [address] Dr. Efrain Carter [Catalytic activity/Vol]18 U/SJwmwyx50-67Wqv [facility] HospitalComment on above:Performed By: #### CRP, CMP, TSH, T7, LIPID, URIC #### [facility] [address] [place] [address] Dr. Efrain ZuñigaBilirubin [Mass/Vol]0.5 mg/dLNormal0.2-1.0[facility] Comment on above:Performed By: #### CRP, CMP, TSH, T7, LIPID, URIC #### [facility] [address] [place] [address] Dr. Efrain ZuñigaCalcium [Mass/Vol]8.8 mg/dLNormal8.5-10.1[facility] Comment on above:Performed By: #### CRP, CMP, TSH, T7, LIPID, URIC #### [facility] [address] [place] [address] Dr. Efrain ZuñigaChloride [Moles/Vol]106 mmol/NWxsgjq43-212SwwLakehealth Tripoint Medical Center Comment on above:Performed By: #### CRP, CMP, TSH, T7, LIPID, URIC #### [facility] [address] [place] [address] Dr. Efrain ZuñigaCO2 [Moles/Vol]24.2 mmol/FXevppj91.0-32.0The [facility] Comment on above:Performed By: #### CRP, CMP, TSH, T7, LIPID, URIC #### [facility] [address] [place] [address] Dr. Efrain ZuñigaCreatinine [Mass/Vol]1.08 mg/dLCritically high0.55-1.02The [facility] Centerment on above:Performed By: #### CRP, CMP, TSH, T7, LIPID, URIC #### [facility] [address] [place] [address] Dr. Efrain MillerGFR-AF BHUTANESE>60Normal>=60The [facility] Centerment on above:Performed By: #### CRP, CMP, TSH, T7, LIPID, URIC #### [facility] [address] [place] [address] Dr. Efrain MillerGFR-NON AF CWZUNVRH41 mL/min/1.87r3Pugdnucbak low>=60The [facility] Centerment on above:Performed By: #### CRP, CMP, TSH, T7, LIPID, URIC #### [facility] [address] [place] [address] Dr. Efrain ZuñigaGlobulin (S) [Mass/Vol]3.6 g/dLNormalThe [facility] HospitalComment on above:Performed By: #### CRP, CMP, TSH, T7, LIPID, URIC #### [facility] [address] [place] [address] Dr. Efrain ZuñigaGlucose [Mass/Vol]184 mg/dLCritically bgec55-108Rte [facility] on above:Performed By: #### CRP, CMP, TSH, T7, LIPID, URIC #### [facility] [address] [place] [address] Dr. Efrain ZuñigaPotassium [Moles/Vol]4.8 mmol/LNormal3.5-5.1The [facility] Comment on above:Performed By: #### CRP, CMP, TSH, T7, LIPID, URIC #### [facility] [address] [place] [address] Dr. Efrain ZuñigaProtein [Mass/Vol]6.7 g/dLNormal6.4-8.2The [facility] Comment on above:Performed By: #### CRP, CMP, TSH, T7, LIPID, URIC #### [facility] [address] [address] [address] Efrain ZuñigaSodium [Moles/Vol]140 mmol/YHmtjiz457-895Qfh [facility] Comment on above:Performed By: #### CRP, CMP, TSH, T7, LIPID, URIC #### [facility] [address] [place] [address] Dr. Efrain ZuñigaUrea nitrogen [Mass/Vol]32.0 mg/dLCritically high7.0-18.0The [facility] HospitalComment on above:Performed By: #### CRP, CMP, TSH, T7, LIPID, URIC #### [facility] [address] [place] [address] Dr. Efrain Sarmiento nitrogen/Creatinine [Mass ratio]29.6 mg/mgNormalThe [facility] HospitalComment on above:Performed By: #### CRP, CMP, TSH, T7, LIPID, URIC #### [facility] [address] [place] [address] Dr. Efrain Nesbitt 88-92-4449MKB7.495 uIU/mLNormal0.358-3.740The [facility] HospitalComment on above:Performed By: #### CRP, CMP, TSH, T7, LIPID, URIC #### [facility] [address] [place] [address] Dr. Efrain ZuñigaURIC ACID SERUMon 36-51-8511Elfuw [Mass/Vol]7.6 mg/dLCritically high2.6-6.0The [facility] HospitalComment on above:Performed By: #### RF #### [facility] [address] [place] [address] Dr. Efrain ZuñigaCovid-19 PCR (CVDTB)on 91-60-6568JVJD-CoV-2 (COVID-19) RNA ASHLEIGH+probe Ql (Unsp spec)Not detectedNormalNOT DETECTEDThe [facility] Comment on above:Result Comment: This test is not yet approved or cleared by the [place] FDA. When there are no FDA-approved or cleared tests available, and other criteria are met, FDA can make tests available under an emergency access mechanism called an Emergency Use Authorization (EUA). The EUA for this test is supported by the Production Supervisor of Health and Human Service's (HHS's) declaration [...] consistent with SARS-CoV-2.Performed By: #### CVDTBH #### [place] [address] Dr[address] Efrain Lockett AND B AGon 66-26-6387HRWORVWAPUYSOAccess Hospital Dayton on above:Result Comment: Negative for Flu A protein angiten. Infection due to Flu A cannot be ruled out. FluA angiten in the sample may be below the detection limit of the test.Performed By: #### ASOAB #### [facility] [address] [place] [address] Dr. Efrain UribeNEGERICKA [facility] on above: Result Comment: Negative for Flu B protein antigen. Infection due to Flu B cannot be ruled out. FluB antigen in the sample may be below the detection limit of the test.Performed By: #### ASOAB #### [facility] [address] [place] [address] Dr. Efrain Lockett AGNegativeNormalNEGATIVE SEE COMMENTThe [facility] on above:Performed By: #### ASOAB #### [facility] [address] [place] [address] Dr. Efrain Burger AGNegativeNormalNEGATIVE SEE COMMENTThe [facility] on above:Performed By: #### ASOAB #### [facility] [address] [place] [address] Dr. Efrain Zuñiga29on 20-46-568099Skxynpcy by: POPEYE KAUFFMAN on: 10/11/2022 09:39 AM Modules accepted: Level of ServiceNormalUniCorey Hospital Consulton [id number] Dorothy Faria 1965 F Date Provider Department Center 10/09/2022 3720-POPEYE KAUFFMAN [facility] SURG Second Fl Chart Close Cosign Accepted by: POPEYE KAUFFMAN[[id number]] Chart Close Cosign Accepted on: SunOct 11, 2022 9:51 AM No family history on file Level of Service:49886 [place] OFFICE CONSULTATION NEW/ESTAB PATIENT 40 MIN Reason [...] she has tried PT, but did not help.NormalUnWooster Community HospitalAmbulatory Visit Summaryon 71-93-2964Yodelapdyb Visit Summary DOROTHY FARIA :1965 Visit Date:10/04/2022 Ambulatory Visit Instructions Your Care Team Attending Physician - KOSTA BRIONES, Nathan Gerber Primary Care Physician - Chetan BRIONES, Cray This Is Your Medications List Contact prescribing [...] hemiplegia Smoker SVT (supraventricular tachycardia) Ventral hernia NormalMercy Health Fairfield HospitalGeneral Surgery Office/Clinic Noteon 87-77-1630Pbqdhkw Surgery Office/Clinic NoteChief Complaint in-office excisional biopsy [...] Years. Yes, 09/01/2022 Family History [facility]Comment on above:Result Comment: Electronically Signed By: KOSTA BRIONES, Nathan Harvey\Date and Time Signed: 10/04/22 17:30 ESTFacesheeton 83-58-7114Qelaiuopw [id number]#1.00CD:[address] [place], [place] [address]MRI LSPINE WO CONon 24-50-3539DPT [facility] WO CONEXAMINATION: MRI [facility] WO CON HISTORY: Nerve root disorder COMPARISON: [...] authenticated by: MARIA LUISA RAMIREZ Date: 2022-08-28 08:[address] [place], [place] [address]Physician Referralon 20-62-9600Bavvqmwhh Referral [id number]#1.00CD:[address] [place], [place] [address]Physician Referralon 34-14-1630Heupokagy Referral [id number]#1.00CD:[address] [place], [place] [address]Activated clotting timeon 29-63-2070Gvjkjngmd Clotting Fcsd515CnmxXZPWythe County Community HospitalInterpretation and review of laboratory resultsAbnoSentara RMH Medical Center HEALTHCHLORIDE (POC)on 05-39-3651Wmoxeapj [Moles/Vol]102 mmol/L98 - 107 mmol/LBON [facility]IV[facility]ITY [facility]OSPITALS SAM[facility]AN MEDICAL CENTERCatheterization and angiography procedure details panelon 20-41-7855PNY [facility] Work Phone: creatinine W/GFR Point of Careon 28-01-4354Jektfhdgev [Mass/Vol]0.77 mg/dL0.51 - 1.19 mg/dLBON UNIVERSITY HOS[facility]IT[facility] SAM[facility]AN MEDICAL CENTERGFR Non->60>60 mL/minSENTARA CAREPLEX HOSPITALGFR/1.73 sq M.predicted MDRD (S/P/Bld) [Vol rate/Area]mL/min/{1.73_m2}>60 mL/minSENTARA CAREPLEX HOSPITAL GFR/1.73 sq M.predicted MDRD (S/P/Bld) [Vol rate/Area][facility] Comment on above:Average GFR for 50-59 years old: 93 mL/min/1.73sq m Chronic Kidney Disease: <60 mL/min/1.73sq m Kidney failure: <15 mL/min/1.73sq m eGFR calculated using average adult body mass. Additional eGFR calculator available at: http://www.[employer]/multiple_crcl_2012.htm Hemoglobin and hematocrit, bloodon 73-92-5550Egbqcjpbji (Bld) [Volume fraction] 44 %36 - 46 %SENTARA CAREPLEX HOSPITALHemoglobin (Bld) [Mass/Vol]14.9 g/dL12.0 - 16.0 g/dLBON [facility] MEDICAL CENTERNo Panel Informationon 16-79-7312Ntdipluthzyrfb and review of laboratory resultsAbnormalBON AVERA GREGORY HEALTHCARE CENTERPOCT Glucoseon 03-37-0919Xdqfrvg [Mass/Vol]314 mg/gHDamk27 - 100 mg/dLBON W[facility]UM[facility] HARR[facility] COMMUNITY HOSPITALCT urea (BUN)on 76-42-3406Tchx nitrogen [Mass/Vol]14 mg/dL8 - 26 mg/dLBON UNIVERSITY HOSPITALS SAMARITAN MEDICAL CENTERPOTASSIUM (POC)on 89-54-3364Uvjmdsekk [Moles/Vol]4.4 mmol/L3.5 - 4.5 mmol/LBON [facility]OS[facility]ALS SAM[facility]AN MEDICAL CENTERPlatelet Counton 25-05-9631Naqujnnhf (Bld) [#/Vol]206 10*3/uLBON AVERA GREGORY HEALTHCARE CENTERSODIUM (POC)on 37-40-1028Jnkbzu [Moles/Vol] 136 mmol/SJza472 - 146 mmol/LBON [facility] HOSPITALS SAM[facility]AN MEDICAL CENTERCBC AUTO DIFFon 04-28-2022 BASO #0.1 103/ulNormal0.0-0.1The [facility] HospitalComment on above:Performed By: #### POCGLUC #### [facility] [address] [place] [address] Dr. Efrain ZuñigaBasophils/100 WBC (Bld)0.6 %Normal0.2-2.0[facility] Comment on above:Performed By: #### POCGLUC #### [facility] [address] [place] [address] Dr. Efrain Jaimes #0.1 103/ulNormal0.0-0.7The [facility] HospitalComment on above: Performed By: #### POCGLUC #### [facility] [address] [place] [address] Dr. Efrain Millerosinophils/100 WBC (Bld)1.5 %Normal0.9-7.0[facility] Comment on above:Performed By: #### POCGLUC #### [facility] [address] [place] [address] Dr. Efrain Millerrythrocyte distribution width (RBC) [Ratio]15.1 %Critically high 11.0-15.0The [facility] HospitalComment on above:Performed By: #### POCGLUC #### [facility] [address] [place] [address] Dr. Efrain ZuñigaHematocrit (Bld) [Volume fraction]41.3 %Utwyqv68.0-48.0[facility] CenterComment on above:Performed By: #### POCGLUC #### [facility] [address] [place] [address] Dr. Efrain ZuñigaHemoglobin (Bld) [Mass/Vol]13.2 g/tLNdcfrj77.0-16.0[facility] CenterComment on above:Performed By: #### POCGLUC #### [facility] [address] [place] [address] Dr. Efrain Bernal #0.05 10e3/ulCritically high0.00-0.03[facility] Comment on above:Performed By: #### POCGLUC #### [facility] [address] [address] [address] Efrain Bernal %0.6 %Critically high0.0-0.5The [facility] HospitalComment on above:Performed By: #### POCGLUC #### [facility] [address] [address] [address] Efrain Arteaga #1.5 103/ulNormal1.2-3.8The [facility] HospitalComment on above:Performed By: #### POCGLUC #### [facility] [address] [place] [address] Dr. Efrain Coolhocytes/100 WBC (Bld)17.3 %Critically low20.5-60.0The [facility] HospitalComhillsdale hospital on above:Performed By: #### POCGLUC #### [facility] [address] [place] [address] Dr. Efrain TalleyUAL DIFF REQNONormalThe [facility] St[facility] HospitalComment on above: Performed By: #### POCGLUC #### [facility] [address] [place] [address] Dr. Efrain Cottrell (RBC) [Entitic mass]29.9 gkGbvbsu99.7-34.0The [facility] HospitalComhillsdale hospital on above:Performed By: #### POCGLUC #### [facility] [address] [place] [address] Dr. Efrain Cottrell (RBC) [Mass/Vol]32.0 g/iYLvbjxf48.9-35.2The [facility] Medical Centerment on above:Performed By: #### POCGLUC #### [facility] [address] [place] [address] Dr. Efrain Cottrell (RBC) [Entitic vol]93.4 kGPxtwxw79.0-99.0The [facility] on above:Performed By: #### POCGLUC #### [facility] [address] [place] [address] Dr. Efrain Bobby #0.7 103/ulNormal0.3-0.8The Chin HospitalComment on above:Performed By: #### POCGLUC #### [facility] [address] [address] [address] Efrain Rosenbaumocytes/100 WBC (Bld)8.0 %Normal1.7-12.0The [facility] on above:Performed By: #### POCGLUC #### [facility] [address] [address] [address] Efrain GarcíaUT #6.4 103/ulNormal1.4-6.5The [facility] HospitalComment on above:Performed By: #### POCGLUC #### [facility] [address] [place] [address] Dr. Efrain Garcíautrophils/100 WBC (Bld)72.0 %Feexst58.0-75.0The [facility] HospitalComment on above:Performed By: #### POCGLUC #### [facility] [address] [place] [address] Dr. Efrain ZuñigaPlatelet mean volume (Bld) [Entitic vol]11.8 fLNormal9.5-13.5The [facility] HospitalComment on above:Performed By: #### POCGLUC #### [facility] [address] [place] [address] Dr. Efrain ZuñigaPLT174 103/gxYogkba251-036Vaw [facility] HospitalComment on above: Performed By: #### POCGLUC #### [facility] [address] [place] [address] Dr. Efrain ZuñigaRBC4.42 106/ulNormal4.20-5.40The [facility] HospitalComment on above:Performed By: #### POCGLUC #### [facility] [address] [place] [address] Dr. Efrain ZuñigaWBC8.9 103/ulNormal4.0-11.0The [facility] HospitalComment on above: Performed By: #### POCGLUC #### [facility] [address] [place] [address] Dr. Efrain ZuñigaPIEDMONT [facility] GLUCOSEon 31-68-1159Qurqktv [Mass/Vol]371 mg/dL Critically bthg71-631Ynw [facility] HospitalComment on above:Performed By: #### POCGLUC #### [facility] [address] [place] [address] Dr. Efrain ZuñigaGlucose [Mass/Vol]214 mg/dLCritically cdka59-278Rzd [facility] HospitalComment on above:Performed By: #### POCGLUC #### [facility] [address] [place] [address] Dr. Efrain ZuñigaPROF 14(COMP METB)on 45-48-5291Dpcmmto [Mass/Vol]2.8 g/dL Critically low3.4-5.0The [facility] HospitalComment on above:Performed By: #### RF #### [facility] [address] [place] [address] Dr. Efrain ZuñigaAlbumin/Globulin [Mass ratio]0.8 {ratio}NormalThe [facility] HospitalComment on above:Performed By: #### RF #### [facility] [address] [place] [address] Dr. Efrain TaverasP [Catalytic activity/Vol]121 U/LCritically pbyn73-451Lqg [facility] HospitalComment on above:Performed By: #### RF #### [facility] [address] [place] [address] Dr. Efrain Sweeney [Catalytic activity/Vol]54 U/DYlwpov44-33Rpd [facility] HospitalComment on above:Performed By: #### RF #### [facility] [address] [place] [address] Dr. Efrain Torres gap [Moles/Vol]13.7 mmol/LNormalThe [facility] Comment on above:Performed By: #### RF #### [facility] [address] [place] [address] Dr. Efrain ZuñigaAST [Catalytic activity/Vol]45 U/LCritically mgjv60-21Pbu [facility] HospitalComment on above:Performed By: #### RF #### [facility] [address] [place] [address] Dr. Efrain ZuñigaBilirubin [Mass/Vol]0.9 mg/dLNormal0.2-1.0The [facility] Comment on above:Performed By: #### RF #### [facility] [address] [address] [address] Efrain ZuñigaCalcium [Mass/Vol]8.5 mg/dLNormal8.5-10.1The [facility] Comment on above:Performed By: #### RF #### [facility] [address] [address] [address] Efrain ZuñigaChloride [Moles/Vol]103 mmol/TOamdjr10-676Jdw [facility] Comment on above:Performed By: #### RF #### [facility] [address] [address] [address] Efrain ZuñigaCO2 [Moles/Vol]26.4 mmol/SObzcpb08.0-32.0[facility] Comment on above:Performed By: #### RF #### [facility] [address] [place] [address] Dr. Efrain ZuñigaCreatinine [Mass/Vol]0.94 mg/dLNormal0.55-1.02The [facility] HospitalComment on above:Performed By: #### RF #### [facility] [address] [place] [address] Dr. Efrain MillerGFR-AF BHUTANESE>60Normal>=60The [facility] HospitalComment on above:Performed By: #### RF #### [facility] [address] [address] [address] Efrain MillerGFR-NON AF BHUTANESE>60Normal>=60The [facility] HospitalComment on above:Performed By: #### RF #### [facility] [address] [address] [address] Efrain ZuñigaGlobulin (S) [Mass/Vol]3.5 g/dLNormalThe [facility] HospitalComment on above:Performed By: #### RF #### [facility] [address] [place] [address] Dr. Efrain ZuñigaGlucose [Mass/Vol]243 mg/dLCritically pmpc27-241Ftz [facility] HospitalComment on above:Performed By: #### RF #### [facility] [address] [id number] Efrain ZuñigaPotassium [Moles/Vol]4.1 mmol/LNormal3.5-5.1The [facility] Comment on above:Performed By: #### RF #### [facility] [address] [id number] Efrain ZuñigaProtein [Mass/Vol]6.3 g/dLCritically low6.4-8.2The [facility] HospitalComment on above:Performed By: #### RF #### [facility] [address] [address] [address] Efrain ZuñigaSodium [Moles/Vol]139 mmol/UNvbcdi798-383Dwr [facility] Comment on above:Performed By: #### RF #### [facility] [address] [id number] [address] Efrain ZuñigaUrea nitrogen [Mass/Vol]10.0 mg/dLNormal7.0-18.0The [facility] HospitalComment on above:Performed By: #### RF #### [facility] [address] [id number] Efrain ZuñigaUrea nitrogen/Creatinine [Mass ratio]10.6 mg/mgNormalThe [facility] HospitalComhillsdale hospital on above:Performed By: #### RF #### [facility] [address] [address] Dr. Efrain ZuñigaXR ABD FLAT UP_PA Brodie 75-72-1463ZT ABD FLAT UP_PA CHEXAMINATION: XR ABD FLAT [...] Electronically authenticated by: LAZARUS PARRA Date: 2022-04-28 07:14[facility] HospitalXR [facility] FLAT UP_PA CHACUTE ABDOMINAL SERIES [...] Electronically authenticated by: EMILIANA CURTIS Date: 2022-04-27 22:01[facility] HospitalAMYLASEon 31-30-1570Acpancq [Catalytic activity/Vol]36 U/L Norkjl23-072Bgm [facility] HospitalComment on above:Performed By: #### POCGLUC #### [facility] [address] [place] [address] Dr. Efrain Daigle AUTO DIFFon 52-91-2008ZGUV #0.1 103/ulNormal0.0-0.1The [facility] HospitalComment on above:Performed By: #### POCGLUC #### [facility] [address] [address] [address] Efrain Rodriguezsophils/100 WBC (Bld)0.8 %Normal0.2-2.0[facility] Comment on above:Performed By: #### POCGLUC #### [facility] [address] [place] [address] Dr. Efrain Jaiems #0.1 103/ulNormal0.0-0.7The [facility] HospitalComment on above: Performed By: #### POCGLUC #### [facility] [address] [place] [address] Dr. Efrain Millerosinophils/100 WBC (Bld)0.5 %Critically low0.9-7.0The [facility] HospitalComment on above:Performed By: #### POCGLUC #### [facility] [address] [place] [address] Dr. Efrain Millerrythrocyte distribution width (RBC) [Ratio]15.1 %Critically high 11.0-15.0The [facility] HospitalComment on above:Performed By: #### POCGLUC #### [facility] [address] [place] [address] Dr. Efrain ZuñigaHematocrit (Bld) [Volume fraction]44.2 %Qakjsy32.0-48.0The [facility] HospitalComment on above:Performed By: #### POCGLUC #### [facility] [address] [place] [address] Dr. Efrain ZuñigaHemoglobin (Bld) [Mass/Vol]14.6 g/dLFtbjhm11.0-16.0The [facility] HospitalComment on above:Performed By: #### POCGLUC #### [facility] [address] [place] [address] Dr. Efrain Bernal #0.09 10e3/ulCritically high0.00-0.03The [facility] Comment on above:Performed By: #### POCGLUC #### [facility] [address] [place] [address] Dr. Efrain Bernal %0.8 %Critically high0.0-0.5The [facility] HospitalComment on above:Performed By: #### POCGLUC #### [facility] [address] [place] [address] Dr. Efrain Artegaa #1.6 103/ulNormal1.2-3.8The [facility] HospitalComment on above:Performed By: #### POCGLUC #### [facility] [address] [address] [address] Efrain Spearsmphocytes/100 WBC (Bld)14.8 %Critically low20.5-60.0The [facility] HospitalComment on above:Performed By: #### POCGLUC #### [facility] [address] [place] [address] Dr. Efrain TalleyUAL DIFF REQNONormalThe [facility] St[facility] Mary HospitalComment on above: Performed By: #### POCGLUC #### [facility] [address] [place] [address] Dr. Efrain Cottrell (RBC) [Entitic mass]30.3 kcGrhbic35.7-34.0The [facility] HospitalComment on above:Performed By: #### POCGLUC #### [facility] [address] [place] [address] Dr. Efrain Cottrell (RBC) [Mass/Vol]33.0 g/nOUzukwz69.9-35.2The [facility] HospitalComment on above:Performed By: #### POCGLUC #### [facility] [address] [place] [address] Dr. Efrain Cottrell (RBC) [Entitic vol]91.7 lEYmmdxi27.0-99.0[facility] CenterComment on above:Performed By: #### POCGLUC #### [facility] [address] [place] [address] Dr. Efrain Bobby #0.9 103/ulCritically high0.3-0.8ThMcC[facility] Comment on above:Performed By: #### POCGLUC #### [facility] [address] [place] [address] Dr. Efrain Rosenbaumocytes/100 WBC (Bld)7.8 %Normal1.7-12.0[facility] Comment on above:Performed By: #### POCGLUC #### [facility] [address] [place] [address] Dr. Efrain Lugo #8.2 103/ulCritically high1.4-6.5ThMcC[facility] Comment on above:Performed By: #### POCGLUC #### [facility] [address] [address] [address] Efrain Garcíautrophils/100 WBC (Bld)75.3 %Critically high43.0-75.0The [facility] HospitalComment on above:Performed By: #### POCGLUC #### [facility] [address] [place] [address] Dr. Efrain ZuñigaPlatelet mean volume (Bld) [Entitic vol]11.6 fLNormal9.5-13.5The [facility] HospitalComment on above:Performed By: #### POCGLUC #### [facility] [address] [place] [address] Dr. Efrain ZuñigaPLT198 103/qiDzncqb619-235Uxl [facility] on above: Performed By: #### POCGLUC #### [facility] [address] [place] [address] Dr. Efrain ZuñigaRBC4.82 106/ulNormal4.20-5.40The [facility] HospitalComment on above:Performed By: #### POCGLUC #### [facility] [address] [place] [address] Dr. Efrain ZuñigaWBC10.9 103/ulNormal4.0-11.0The [facility] on above:Performed By: #### POCGLUC #### [facility] [address] [place] [address] Dr. Efrain ZuñigaCT ABD/PELV W CONon 78-33-2177XX ABD/PELV W CONEXAMINATION: CT ABD/PELV W CON [...] Electronically authenticated by: LAZARUS PARRA Date: 2022-04-27 08:45[facility] HospitalCULTURE BLOODon 10-60-5536Uzspumujaus examination of blood, cultureCulture Observations: No growth at [address] [facility] HospitalComment on above:Performed By: #### RF #### [facility] [address] [place] [address] Dr. Efrain ZuñigaMicroscopic examination of blood, cultureCulture Observations: No growth at [address] [facility] HospitalComment on above:Performed By: #### RF #### [facility] [address] [address] [address] Efrain Bansal URINEon 72-97-9752ATPKRIK URINECulture Observations: No growthNormalThe [facility] St. Mary HospitalComment on above:Performed By: #### RF #### [facility] [address] [address] [address] Efrain ZuñigaCovid-19 PCR (CVDTBH)on 04-04-0670TJVI-CoV-2 (COVID-19) RNA ASHLEIGH+probe Ql (Unsp spec)Not detectedNormalNOT DETECTEDThe [facility] Comment on above:Result Comment: When diagnostic testing [...] for this test is supported by the Production Supervisor of Health and Human Service's declaration that [...] longer be used).Performed By: #### CVDTBH #### [facility] [address] [address] [address] Efrain ZuñigaLACTATE/LACTIC ACIDon 84-68-4584Qyjjkfw [Moles/Vol]0.7 mmol/L Normal0.4-1.9The [facility] on above:Performed By: #### LACT #### [facility] [address] [place] [address] Dr. Efrain ZuñigaLIPASEon 66-40-7417Yxtqqq [Catalytic activity/Vol]92.0 U/LNormal 73.0-393.0The Chin HospitalComment on above:Performed By: #### POCGLUC #### [facility] [address] [address] [address] Efrain Cisneros PROFILEon 33-46-5983Gjvwgyh [Mass/Vol]3.2 g/dLCritically low3.4-5.0The [facility] HospitalComment on above:Performed By: #### POCGLUC #### [facility] [address] [address] [address] Efrain ZuñigaAlbumin/Globulin [Mass ratio]0.8 {ratio}NormalThe [facility] HospitalComment on above:Performed By: #### POCGLUC #### [facility] [address] [address] [address] Efrain Osborn [Catalytic activity/Vol]101 U/IEfjvth11-500Sws [facility] HospitalComment on above:Performed By: #### POCGLUC #### [facility] [address] [address] [address] Efrain Sweeney [Catalytic activity/Vol]24 U/NKsjvxw92-38Goi [facility] Centerment on above:Performed By: #### POCGLUC #### [facility] [address] [address] [address] Efrain ZuñigaAST [Catalytic activity/Vol]10 U/LCritically sgx97-44Cdw [facility] on above:Performed By: #### POCGLUC #### [facility] [address] [address] [address] Efrain Hodge, CONJUGATED0.2 mg/dLNormal0.0-0.2The [facility] Comment on above:Performed By: #### POCGLUC #### [facility] [address] [address] [address] Efrain Izquierdoirubin [Mass/Vol]0.9 mg/dLNormal0.2-1.0The [facility] Comment on above:Performed By: #### POCGLUC #### [facility] [address] [address] [address] Efrain ZuñigaGlobulin (S) [Mass/Vol]4.0 g/dLNormalThe [facility] HospitalComment on above:Performed By: #### POCGLUC #### [facility] [address] [address] [address] Efrain ZuñigaProtein [Mass/Vol]7.2 g/dLNormal6.4-8.2The [facility] Comment on above:Performed By: #### POCGLUC #### [facility] [address] [address] [address] E[facility]rain ZuñigaPIEDM[facility] GLUCOSEon 83-63-0705Obsikkm [Mass/Vol]142 mg/dL Critically upjo88-352Bng [facility] HospitalComment on above:Performed By: #### POCGLUC #### [facility] [address] [place] [address] Dr. Efrain ZuñigaGlucose [Mass/Vol]261 mg/dLCritically rvyd22-728Uir [facility] HospitalComment on above:Performed By: #### POCGLUC #### [facility] [address] [place] [address] Dr. Efrain ZuñigaGlucose [Mass/Vol]305 mg/dLCritically xfvp20-502Qtx [facility] HospitalComment on above:Performed By: #### POCGLUC #### [facility] [address] [place] [address] Dr. Efrain ZuñigaPROKeyonna CHEM 8 (BAS METB)on 45-19-6209Cukwp gap [Moles/Vol]12.9 mmol/LNormalThe [facility] HospitalComment on above:Performed By: #### POCGLUC #### [facility] [address] [place] [address] Dr. Efrain ZuñigaCalcium [Mass/Vol]9.2 mg/dLNormal8.5-10.1[facility] Comment on above:Performed By: #### POCGLUC #### [facility] [address] [place] [address] Dr. Efrain ZuñigaChloride [Moles/Vol]99 mmol/RQzrdsb86-153DxfLakehealth [facility] Comment on above:Performed By: #### POCGLUC #### [facility] [address] [place] [address] Dr. Yilan ChangCO2 [Moles/Vol]27.0 mmol/DZjalhx80.0-32.0The [facility] Comment on above:Performed By: #### POCGLUC #### [facility] [address] [place] [address] Dr. Efrain Parkeratinine [Mass/Vol]0.94 mg/dLNormal0.55-1.02The [facility] HospitalComment on above:Performed By: #### POCGLUC #### [facility] [address] [place] [address] Dr. Efrain MillerGFR-AF BHUTANESE>60Normal>=60The [facility] HospitalComment on above:Performed By: #### POCGLUC #### [facility] [address] [place] [address] Dr. Efrain MillerGFR-NON AF BHUTANESE>60Normal>=60The [facility] HospitalComment on above:Performed By: #### POCGLUC #### [facility] [address] [place] [address] Dr. Efrain ZuñigaGlucose [Mass/Vol]360 mg/dLCritically chrp69-327Mer [facility] HospitalComment on above:Performed By: #### POCGLUC #### [facility] [address] [place] [address] Dr. Efrain ZuñigaPotassium [Moles/Vol]4.9 mmol/LNormal3.5-5.1The [facility] Comment on above:Performed By: #### POCGLUC #### [facility] [address] [place] [address] Dr. Efrain ZuñigaSodium [Moles/Vol]134 mmol/LCritically xcq273-268Kzk [facility] HospitalComment on above:Performed By: #### POCGLUC #### [facility] [address] [place] [address] Dr. Efrain ZuñigaUrea nitrogen [Mass/Vol]17.0 mg/dLNormal7.0-18.0The [facility] HospitalComment on above:Performed By: #### POCGLUC #### [facility] [address] [place] [address] Dr. Efrain ZuñigaUrea nitrogen/Creatinine [Mass ratio]18.1 mg/mgCleveland Clinic Union HospitalComment on above:Performed By: #### POCGLUC #### [facility] [address] [address] [address] Efrain ZuñigaXR ABD FLAT UP_PA Brodie 46-36-8017QI ABD FLAT UP_PA CHEXAMINATION: XR ABD FLAT [...] Electronically authenticated by: MARINE GUERRERO Date: 2022-04-27 20:34[facility] FLAT UP_PA CHEXAMINATION: XR ABD [...] Electronically authenticated by: LAZARUS PARRA Date: 2022-04-27 18:37[facility] Metabolic Panelon 79-46-4454Gaiwm gap [Moles/Vol]11 mmol/L9 - 17 mmol/LMercy HealthCalcium [Mass/Vol]9.1 mg/dL8.6 - 10.4 mg/dLMercy HealthChloride [Moles/Vol]97 mmol/LLow98 - 107 mmol/LMercy HealthCO2 [Moles/Vol] 26 mmol/L20 - 31 mmol/LMercy HealthCreatinine [Mass/Vol]1.04 mg/dLHigh0.50 - 0.90 mg/dLMercy HealthGFR >60>60 mL/minMercy HealthGFR Non- Xbbmavfl14 mL/minLow>60Mer HealthGlucose [Mass/Vol]441 mg/dLCritically high70 - 99 mg/dLTrihealthInterpretation and review of laboratory results AbnormalJoint Township District Memorial Hospital HealthPotassium [Moles/Vol]4.5 mmol/L3.7 - 5.3 mmol/LMercy Health Sodium [Moles/Vol]134 mmol/BUzh098 - 144 mmol/LMercy HealthUrea nitrogen (BldV) [Mass/Vol]20 mg/dL6 - 20 mg/dLJoint Township District Memorial Hospital HealthUrea nitrogen/Creatinine (Bld) [Mass ratio]19[facility]Labor[facility] - Chemistry and Chemistry - challenge on 79-66-9124YXQ/1.73 sq M.predicted MDRD (S/P/Bld) [Vol rate/Area][facility] Comment on above:Average GFR for 50-59 years old: 93 mL/min/1.73sq m Chronic Kidney Disease: <60 mL/min/1.73sq m Kidney failure: <15 mL/min/1.73sq m eGFR calculated using average adult body mass. Additional eGFR calculator available at: http://www.[employer] MDx/multiple_crcl_2011.htm Stage 1: Some kidney damage normal GFR Stage 2: Mild kidney damage GFR 60-89 Stage 3: Moderate kidney damage GFR 30-59 Stage 4: Severe kidney damage GFR 15-29 Stage 5: Severe kidney damage GFR <15 ESRD - chronic treatment by dialysis or transplant Steve 36-82-8147GTQ [Catalytic activity/Vol]15 U/L5 - 33 U/LMercy HealthASTon 26-92-0070QSF [Catalytic activity/Vol]9 U/L<32TrihealthBasic Metabolic Panel on 95-57-2983Jpedt gap [Moles/Vol]11 mmol/L9 - 17 mmol/LMercy HealthCalcium [Mass/Vol]9.5 mg/dL8.6 - 10.4 mg/dLTrihealthChloride [Moles/Vol]93 mmol/LLow 98 - 107 mmol/LMercy HealthCO2 [Moles/Vol]24 mmol/L20 - 31 mmol/LMercy Health Creatinine [Mass/Vol]0.96 mg/dLHigh0.50 - 0.90 mg/dLTrihealthGFR >60>60 mL/minTrihealthGFR Non->60>60 mL/minTrihealthGlucose [Mass/Vol]434 mg/dLCritically high70 - 99 mg/dLTrihealth Interpretation and review of laboratory resultsAbnormalTrihealthPotassium [Moles/Vol]4.5 mmol/L3.7 - 5.3 mmol/LMercy HealthSodium [Moles/Vol]128 mmol/LLow 135 - 144 mmol/LMercy HealthUrea nitrogen (BldV) [Mass/Vol]14 mg/dL6 - 20 mg/dL TrihealthUrea nitrogen/Creatinine (Bld) [Mass ratio]15[facility] HospitalLaboratory - Chemistry and Chemistry - challengeon 42-57-1792WYI/1.73 sq M.predicted MDRD (S/P/Bld) [Vol rate/Area][facility]healthComment on above:Average GFR for 50-59 years old: 93 mL/min/1.73sq m Chronic Kidney Disease: <60 mL/min/1.73sq m Kidney failure: <15 mL/min/1.73sq m eGFR calculated using average adult body mass. Additional eGFR calculator available at: http://www.[employer]/multiple_crcl_2012.htm Stage 1: Some kidney damage normal GFR Stage 2: Mild kidney damage GFR 60-89 Stage 3: Moderate kidney damage GFR 30-59 Stage 4: Severe kidney damage GFR 15-29 Stage 5: Severe kidney damage GFR <15 ESRD - chronic treatment by dialysis or transplant Lipid Panelon 30-00-8425Fjtjoprqueo [Mass/Vol]141 mg/dL<200Mercy HealthComment on above: Cholesterol Guidelines: [...] AHA Guidelines for fasting triglyceride, August 2012. [employer] SolutionsNo Panel Informationon 55-29-5952Yacvo HealthProcedure Noteon 65-68-2634Umogbjkxp NoteMR#: [id number] Name: Dorothy Oneal Surgery Date: 09/18/2017 Room #: 5AB [id number] Date of : 1965 PROCEDURE NOTEATTENDING: Estela Womack MDASSISTANT: Milan Cornejo M.D.PREOPERATIVE DIAGNOSIS: Necrotic abdominal incisional wound.PROCEDURE PERFORMED: Sharp excisional debridement of incisional abdominalwound.INDICATIONS: This is a 52-year-old female, [facility], which she [...] 11/05/2017/04:26 P/Milan Cornejo MDDate Trans: 11/06/2017 09:44 A/mmoDN_JN:[id number] Health SystemDischarge Summaryon 04-54-3634Oyixnblnn SummaryMR#: [id number] [facility]Ohio[facility] Name: Dorothy Oneal Admitted: 09/13/2017 Discharged: 09/18/2017 Date of : 1965 Physician: Estela Womack MD DISCHARGE SUMMARYPRIMARY DISCHARGE DIAGNOSIS: Small bowel obstruction.PROCEDURES PERFORMED: None.HOSPITAL COURSE: This is a 52-year-old female who was transferred from [facility], status post small bowel resection. Earlier this month,she underwent a neck surgery and then later developed a small-bowelobstruction. She required an exploratory laparotomy, lysis of adhesions,and primary anastomosis due to the small bowel obstruction. [facility] as she had prolonged [...] [facility], performed thekey portion(s) of the service and participated in the management andconfirmthe resident's documentation. Please note there may be anadditional personal documentation from me. Date Dict: 09/27/2017/01:59 A/Milan Cornejo, MDDate Trans: 09/27/2017 11:37 P/mmoDN_JN:[id number]:Cary Benton M.D. [address] [place] [address]XmkbvdHruMemorial Health SystemProcedure Noteon 63-48-6652Qrdpvmfyf NoteMR#: [id number] Pt[facility] Name: Dorothy Oneal Surgery Date: 09/18/2017 Room #: 5AB [id number] Date of : 1965 PROCEDURE NOTEATTENDING: MARIA [...] Dict: 09/18/2017/09:15 Levy/MILAGRO Honeycuttate Trans: 09/19/2017 04:12 A/mmoDN_JN:[id number] Health SystemBASIC METABOLIC PANELon 61-34-2360Klymgbn6.4 mg/dLLow8.6-10.3The [facility] SystemComment on above:Order Comment: No: Do not add to previous draw Performed By: #### 96448, 43186, 07223, 58465 ####[facility] [place] [address], KORZrjrconh727 mmol/JJdjmkf34-604Sim [facility] SystemComment on above:Order Comment: No: Do not add to previous drawPerformed By: #### 25261, 50556, 08301, 37079 ####[facility] [place] [address], SEYFO206 mmol/L Ppisbh68-59Hpk [facility] SystemComment on above:Order Comment: No: Do not add to previous drawPerformed By: #### 76867, 45725, 40707, 26844 ####[facility] [place] [address], USACreatinine1.59 mg/dLHigh0.60-1.20The [facility] Comment on above:Order Comment: No: Do not add to previous drawPerformed By: #### 74068, 43840, 17122, 27624 ####[facility] [place] [address], USAeGFR (black)42 ml/min/1.73sq mAbnormal>60The [facility] SystemComment on above:Order Comment: No: Do not add to previous drawPerformed By: #### 40320, 72590, 97509, 83571 ####[facility] [place] [address], USAeGFR (non-black) 34 ml/min/1.73sq mAbnormal>60The [facility] SystemComment on above:Order Comment: No: Do not add to previous drawPerformed By: #### 18159, 09777, 60634, 46396 ####[facility] [place] [address], USAGlucose mass dfat130 mg/aDUyio10-324Kll [facility] SystemComment on above:Order Comment: No: Do not add to previous drawPerformed By: #### 52817, 43753, 47421, 12845 ####[facility] [place] [address], USAPotassium molar conc3.0 mmol/LLow3.5-5.1The [facility] SystemComment on above:Order Comment: No: Do not add to previous drawPerformed By: #### 81443, 58075, 17761, 53911 ####[address] [place] [address], ILZMhjbjj762 mmol/WWxggwa952-266Xks [facility] SystemComment on above:Order Comment: No: Do not add to previous drawPerformed By: #### 65135, 47447, 45993, 75544 ####[address] [place] [address], USAUrea nitrogen9 mg/dLNormal7-25The [facility] SystemComment on above:Order Comment: No: Do not add to previous draw Performed By: #### 30239, 03535, 75895, 56042 ####[address] [id number], [facility] CENTERCBC COMPLETE BLOOD COUNTon 10-36-7412Ermcmwrhude distribution width Auto Ratio (RBC)14.1 %Jradqx07.5-16.9 The [facility] Health SystemComment on above:Order Comment: No: Do not add to previous drawPerformed By: #### 04860, 20068, 74752, 86656 ####[address] [place] [address], [facility] Erythrocytes (RBC)3.30 mill/my9Lva9.50-5.50The [facility] Health SystemComment on above:Order Comment: No: Do not add to previous drawPerformed By: #### 05211, 50124, 27973, 70289 ####[facility] [facility].[place] [address], [facility] MEDICAL CENTERHematocrit (HCT)30.1 %Low36.0-48.0The [facility] SystemComment on above:Order Comment: No: Do not add to previous drawPerformed By: #### 08313, 21593, 02450, 08145 ####[facility] [place] [address].[place] [address], [facility] CENTERHemoglobin mass conc (Bld)9.9 g/dLLow12.0-15.0The [facility] SystemComment on above:Order Comment: No: Do not add to previous drawPerformed By: #### 48664, 11443, 80785, 40494 ####[address] [place] [address], NEBWUZ99.8 ygTsiuhr78.0-32.0The [facility] SystemComment on above:Order Comment: No: Do not add to previous draw Performed By: #### 82216, 33449, 08093, 63208 ####[address] [place] [address], [facility] MED[facility] CENTERMCHC mass conc (RBC)32.8 g/dLNormal 32.0-36.0The [facility] SystemComment on above:Order Comment: No: Do not add to previous drawPerformed By: #### 19674, 32896, 58700, 43893 ####[facility] [place] [address].[place] [address], [place] MCV91.0 hNBrzsom51.0-100.0The [facility] SystemComment on above:Order Comment: No: Do not add to previous drawPerformed By: #### 26428, 65650, 00354, 23777 ####[address] [place] [address], USAPLAT WCO542 Thou/cc0Qvmnvj200-496Knl [facility] SystemComment on above:Order Comment: No: Do not add to previous drawPerformed By: #### 29628, 85635, 59916, 55700 ####[facility] [address], USAWBC (Leukocytes)8.8 Thou/ce7Uoebyz2.0-10.0The [facility] SystemComment on above: Order Comment: No: Do not add to previous drawPerformed By: #### 60550, 33747, 85286, 99236 ####[facility] [place] [address], [facility] MEDICAL CENTERPOC GLUCOSE LABon 59-36-1570Zksdppk mass yzgo155 mg/nYJhrx41-995Smh [facility] SystemComment on above:Performed By: #### 24242, 72024, 22769, 35937 ####[facility] [place] [address], USAGlucose mass pvsk241 mg/uYPkim67-916Ims [facility] SystemComment on above:Performed By: #### 13923, 77688, 26247, 76812 ####[facility] [place] [address], USABASIC METABOLIC PANELon 25-46-0933Bfqufxu1.3 mg/dLLow8.6-10.3The [facility] SystemComment on above:Order Comment: Yes: Add to Previous draw if ablePerformed By: #### 62648, 94142, 37120, 70817 ####[facility] [place] [address], LTMUiaclopg412 mmol/L Buuaaw76-988Bzm [facility] SystemComment on above:Order Comment: Yes: Add to Previous draw if ablePerformed By: #### 64400, 92567, 61060, 22968 ####[facility] [place] [address], BPSSM342 mmol/FMdxsbd17-62Hoz [facility] SystemComment on above:Order Comment: Yes: Add to Previous draw if ablePerformed By: #### 00808, 63317, 72622, 62514 ####[facility] [place] [address], USACreatinine1.67 mg/dLHigh0.60-1.20The Trinity Health SystemComment on above:Order Comment: Yes: Add to Previous draw if ablePerformed By: #### 12477, 38973, 24802, 05576 ####[facility] [place] [address], USAeGFR (black)39 ml/min/1.73sq mAbnormal>60The [facility] SystemComment on above:Order Comment: Yes: Add to Previous draw if ablePerformed By: #### 34703, 22852, 00303, 26502 ####[facility] [place] [address], USAeGFR (non-black)33 ml/min/1.73sq mAbnormal>60The [facility] SystemComment on above:Order Comment: Yes: Add to Previous draw if ablePerformed By: #### 21303, 64013, 13431, 56832 ####[address] [place] [address], [facility] Glucose mass adre280 mg/rHYbhz38-591Uan [facility] Comment on above:Order Comment: Yes: Add to Previous draw if ablePerformed By: #### 76100, 86730, 81872, 89781 ####[facility] [place] [address], USAPotassium molar conc3.3 mmol/LLow3.5-5.1The [facility] SystemComment on above:Order Comment: Yes: Add to Previous draw if ablePerformed By: #### 11675, 67208, 88169, 28256 ####[facility] [place] [address], [place] Yagbau823 mmol/NMwuykq857-677Rfa [facility] SystemComment on above:Order Comment: Yes: Add to Previous draw if ablePerformed By: #### 66911, 72450, 11541, 24698 ####[facility] [place] [address], [facility] CENTERUrea nmhanboj77 mg/dLNormal7-25The [facility] SystemComment on above:Order Comment: Yes: Add to Previous draw if able Performed By: #### 59705, 66292, 16201, 67405 ####[address] [place] [address], [facility]ENTERCB COMPLETE BLOOD COUNTon 11-20-5449Ahjdfzjuuem distribution width Auto Ratio (RBC)14.3 %Xatfxk28.5-16.9 The [facility] SystemComment on above:Order Comment: Yes: Add to Previous draw if ablePerformed By: #### 15237, 00021, 28689, 83373 ####[place] [address] [facility] [place] [address], [facility] Erythrocytes (RBC)3.20 mill/qk0Asb5.50-5.50The [facility] SystemComment on above:Order Comment: Yes: Add to Previous draw if ablePerformed By: #### 43099, 25654, 56390, 82789 ####[address] [place] [address], [facility] CENTERHematocrit (HCT)29.2 %Low36.0-48.0The [facility] SystemComment on above:Order Comment: Yes: Add to Previous draw if ablePerformed By: #### 00606, 11636, 17263, 88488 ####[address] Hemoglobin mass conc (Bld)9.6 g/dLLow12.0-15.0The [facility] SystemComment on above:Order Comment: Yes: Add to Previous draw if ablePerformed By: #### 70938, 96926, 28488, 71939 ####[facility] [place] [address].[place] [address], XJJKLX68.0 kwHfdher35.0-32.0The [facility] SystemComment on above:Order Comment: Yes: Add to Previous draw if ablePerformed By: #### 11231, 41976, 58122, 44288 ####[address] [place] [address], [facility] CENTERMCHC mass conc (RBC)32.9 g/rAKmfhmv68.0-36.0The [facility] SystemComment on above:Order Comment: Yes: Add to Previous draw if ablePerformed By: #### 37204, 97297, 68956, 57365 ####[address] [place] [address], ISIZKT26.3 hXLoklop33.0-100.0The [facility] Comment on above:Order Comment: Yes: Add to Previous draw if ablePerformed By: #### 97860, 62402, 13799, 11116 ####[address] [place] [address], [facility] CENTERPLAT BLO971 Thou/nm1Eloosq983-847Zte [facility] SystemComment on above:Order Comment: Yes: Add to Previous draw if ablePerformed By: #### 27631, 42292, 89729, 53035 ####[address] [place] [address], [facility] WBC (Leukocytes)7.8 Thou/ip6Nrwzpr0.0-10.0The [facility] SystemComment on above:Order Comment: Yes: Add to Previous draw if ablePerformed By: #### 34569, 62766, 50908, 07849 ####[address] [place] [address], [facility] CENTERMAGNESIUM BLOODon 03-83-4965Qskudfywn0.6 mg/dLLow1.9-2.7The [facility] SystemComment on above:Order Comment: Yes: Add to Previous draw if ablePerformed By: #### 91117, 92991, 36969, 90375 ####[facility] [place] [address], [place] GLUCOSE LABon 30-75-6948Eddlikd mass fwbi776 mg/cMScli78-338Vte [facility] SystemComment on above:Performed By: #### 22739, 26585, 69543, 17126 ####[facility] [place] [address], USAGlucose mass azkc516 mg/bPNugr98-587Edm [facility] SystemComment on above:Performed By: #### 84329, 13741, 14342, 74875 ####[facility] [place] [address], USAGlucose mass ilav509 mg/mMNypu67-824Xib [facility] Comment on above:Performed By: #### 90248, 90007, 96505, 38408 ####[facility] [place] [address], USAGlucose mass conc 159 mg/bZYpjd17-373Vvx [facility] SystemComment on above: Performed By: #### 97537, 67951, 70608, 07864 ####[facility] [place] [address], USAGlucose mass jtxz769 mg/dLHigh 70-100The [facility] SystemComment on above:Performed By: #### 77402, 67487, 70932, 46467 ####[facility] [place] [address], USABASIC METABOLIC PANELon 18-31-0464Nkvjftd8.3 mg/dLLow8.6-10.3The [facility] SystemComment on above:Order Comment: No: Do not add to previous drawPerformed By: #### 72027, 83585 ####[facility] [place] [address], [place] Noxcynww958 mmol/IPoyb45-003Ajj [facility] SystemComment on above:Order Comment: No: Do not add to previous drawPerformed By: #### 83038, 50720 ####[facility] [place] [address], GZQKG571 mmol/JIzjmyq50-75Dzm [facility] SystemComment on above:Order Comment: No: Do not add to previous drawPerformed By: #### 49602, 37363 ####[facility] [place] [address], USACreatinine1.76 mg/dLHigh0.60-1.20The [facility] SystemComment on above:Order Comment: No: Do not add to previous drawPerformed By: #### 79589, 63011 ####[facility] [place] [address], USAeGFR (black)37 ml/min/1.73sq mAbnormal>60The [facility] SystemComment on above:Order Comment: No: Do not add to previous drawPerformed By: #### 85144, 97102 ####[facility] [place] [address], USAeGFR (non-black)30 ml/min/1.73sq m Abnormal>60The [facility] SystemComment on above:Order Comment: No: Do not add to previous drawPerformed By: #### 25396, 09450 ####[facility] [place] [address], [place] Glucose mass conc93 mg/gSOohbzl01-606Skr [facility] Comment on above:Order Comment: No: Do not add to previous drawPerformed By: #### 28359, 62960 ####[facility] [place] [address], USAPotassium molar conc3.5 mmol/LNormal3.5-5.1The [facility] SystemComment on above:Order Comment: No: Do not add to previous drawPerformed By: #### 23014, 81868 ####[facility] [place] [address], YGNNtkqkg296 mmol/LHigh 136-145The [facility] SystemComment on above:Order Comment: No: Do not add to previous drawPerformed By: #### 21304, 03434 ####[facility] [place] [address], USAUrea yjbqigsr67 mg/dLNormal7-25The [facility] SystemComment on above:Order Comment: No: Do not add to previous drawPerformed By: #### 23855, 08173 ####[facility] [place], [place] [address] [address], [facility] CBC COMPLETE BLOOD COUNTon 08-35-5659Gqwfdqpgeek distribution width Auto Ratio (RBC)13.6 %Ztieby96.5-16.9The [facility] SystemComment on above:Order Comment: No: Do not add to previous drawPerformed By: #### 10673, 58871 ####[facility] [place] [address], [facility] CENTERErythrocytes (RBC)3.16 mill/az3Vyf8.50-5.50The [facility] SystemComment on above:Order Comment: No: Do not add to previous draw Performed By: #### 64438, 76612 ####[facility] [place] [address], [facility] CENTERHematocrit (HCT)28.8 %Low36.0-48.0The [facility] SystemComment on above:Order Comment: No: Do not add to previous drawPerformed By: #### 65553, 10368 ####[facility] [place] [address], [facility] CENTERHemoglobin mass conc (Bld) 9.5 g/dLLow12.0-15.0The [facility] SystemComment on above: Order Comment: No: Do not add to previous drawPerformed By: #### 94367, 59769 ####[facility] [facility] [place] [address], [facility] MCH30.1 psMlceea30.0-32.0The [facility] SystemComment on above:Order Comment: No: Do not add to previous drawPerformed By: #### 99216, 95122 ####[facility] [facility] [place] [address], [facility] CENTERMCHC mass conc (RBC)33.0 g/gBNdhbyp60.0-36.0The [facility] SystemComment on above:Order Comment: No: Do not add to previous draw Performed By: #### 89203, 26313 ####[facility] [facility] [place] [address], WYVULL08.2 nMImzklf75.0-100.0The [facility] SystemComment on above:Order Comment: No: Do not add to previous drawPerformed By: #### 30264, 25399 ####[facility] [place] [address].[place] [address], [facility] CENTERPLAT SZX313 Thou/rg2Mzsdzp601-927Qat [facility] SystemComment on above:Order Comment: No: Do not add to previous drawPerformed By: #### 44752, 19402 ####[facility] [facility] [place] [address], [facility]ENTERWBC (Leukocytes)9.2 Thou/no0Nlyuct9.0-10.0The [facility] SystemComment on above: Order Comment: No: Do not add to previous drawPerformed By: #### 18282, 42201 ####[facility] [place] [address].[place] [address], [facility] POC GLUCOSE LABon 44-36-4658Mlreqrn mass thct055 mg/aTVmqe17-893Jym [facility] SystemComment on above:Performed By: #### 30758, 88350 ####[facility] [place] [address], [facility] Glucose mass ntjp719 mg/tJOome83-802Qzs [facility] Comment on above:Performed By: #### 41981, 12735 ####[facility] [place] [address], [facility] CENTERGlucose mass conc96 mg/dL Sabdsq16-958Jvi [facility] SystemComment on above:Performed By: #### 80564, 68631 ####[facility] [place] [address] [place] [address], [facility]ENTERGlucose mass conc79 mg/jLFddaxz22-096Bpa [facility] SystemComment on above:Performed By: #### 02798, 84209 ####[facility] [facility] [address], [facility] BASIC METABOLIC PANELon 60-03-4459Wfwkvxg4.5 mg/dLLow8.6-10.3The [facility] SystemComment on above:Order Comment: No: Do not add to previous drawPerformed By: #### 74302, 12299 ####[facility] [place] [address], SHBPogjzpbt651 mmol/AKqqs35-941Zxz [facility] SystemComment on above:Order Comment: No: Do not add to previous drawPerformed By: #### 91486, 21776 ####[facility] [place] [address] [place] [address], YKVSF057 mmol/OOweqtx68-54Mrv [facility] SystemComment on above:Order Comment: No: Do not add to previous drawPerformed By: #### 63184, 63624 ####[facility] [place] [address], USACreatinine1.96 mg/dLHigh0.60-1.20The [facility] SystemComment on above:Order Comment: No: Do not add to previous drawPerformed By: #### 61343, 60115 ####[facility] [place] [address], USAeGFR (black)33 ml/min/1.73sq mAbnormal>60The [facility] SystemComment on above:Order Comment: No: Do not add to previous drawPerformed By: #### 24827, 31353 ####[facility] [place] [address], USAeGFR (non-black)27 ml/min/1.73sq mAbnormal>60The [facility] SystemComment on above:Order Comment: No: Do not add to previous draw Performed By: #### 39397, 62405 ####[facility] [place] [address], [facility]ENTERGlucose mass conc92 mg/fBMxhvxr79-677Snx [facility] SystemComment on above:Order Comment: No: Do not add to previous drawPerformed By: #### 85205, 18675 ####[facility] [place] [address] [place] [address], USAPotassium molar conc3.8 mmol/LNormal3.5-5.1The [facility] SystemComment on above:Order Comment: No: Do not add to previous drawPerformed By: #### 07639, 41342 ####[facility] [place] [address], [place] Ajxeri104 mmol/ZQjnkfi272-034Dcu [facility] SystemComment on above:Order Comment: No: Do not add to previous drawPerformed By: #### 98547, 26094 ####[facility] [place] [address], USAUrea ggoxesno70 mg/dLNormal7-25The [facility] Comment on above:Order Comment: No: Do not add to previous drawPerformed By: #### 44365, 27763 ####[facility] [facility] [place] [address], USACBC COMPLETE BLOOD COUNTon 59-63-0859Elvfnqtldhp distribution width Auto Ratio (RBC)14.3 %Vqzpna61.5-16.9The [facility] SystemComment on above:Order Comment: No: Do not add to previous draw Performed By: #### 40785, 22981 ####[facility] [facility] [address], [facility] CENTERErythrocytes (RBC)3.37 mill/ib6Cuf1.50-5.50 The [facility] SystemComment on above:Order Comment: No: Do not add to previous drawPerformed By: #### 50820, 76188 ####[facility] [facility] [address], USAHematocrit (HCT)31.1 %Low 36.0-48.0The [facility] SystemComment on above:Order Comment: No: Do not add to previous drawPerformed By: #### 35682, 87568 ####[facility] [facility] [address], USAHemoglobin mass conc (Bld)9.9 g/dLLow12.0-15.0The [facility] SystemComment on above:Order Comment: No: Do not add to previous drawPerformed By: #### 83725, 82047 ####[facility] [facility] [address], FHFVSW29.5 mqQhnhpt39.0-32.0The [facility] Comment on above:Order Comment: No: Do not add to previous drawPerformed By: #### 74185, 18420 ####[facility] [facility] [place] [address], [facility] – TULSAHC mass conc (RBC)32.0 g/iJXuqcxn23.0-36.0The [facility] SystemComment on above:Order Comment: No: Do not add to previous drawPerformed By: #### 24690, 01068 ####[facility] [facility] [place] [address], QDDOMA73.4 rWTrdsvk04.0-100.0 The [facility] SystemComment on above:Order Comment: No: Do not add to previous drawPerformed By: #### 83083, 44499 ####[facility] [facility] [place] [address], [facility] CENTERPLAT LMM353 Thou/mm3 Fhxrea997-379Tzc [facility] SystemComment on above:Order Comment: No: Do not add to previous drawPerformed By: #### 95575, 33956 ####[facility] [facility] [place] [address], [facility] WBC (Leukocytes)10.7 Thou/yj6Zomp2.0-10.0The [facility] Comment on above:Order Comment: No: Do not add to previous drawPerformed By: #### 54216, 04271 ####[facility] [facility] [place] [address], [facility] CENTERMAGNESIUM BLOODon 60-80-2881Wjzuvdmxp9.9 mg/dLNormal 1.9-2.7The [facility] SystemComment on above:Order Comment: No: Do not add to previous drawPerformed By: #### 73104, 96545 ####[facility] [facility] [place] [address], [facility] CENTERPHOSPHORUS BLOODon 02-94-5465Rkxaonkif3.2 mg/dLHigh2.5-5.0The [facility] Comment on above:Order Comment: No: Do not add to previous drawPerformed By: #### 61634, 66827 ####[facility] [place] [address], [place] GLUCOSE LABon 76-39-0478Mejbrux mass conc84 mg/dL Cwnuca93-894Gcf [facility] SystemComment on above:Performed By: #### 28448, 41218 ####[facility] [place] [address] [place] [address], USAGlucose mass zcne383 mg/gUSjfk20-488Zio [facility] SystemComment on above:Performed By: #### 17075, 86295 ####[facility] [place] [address] [place] [address], [place] Glucose mass conc97 mg/yBFqsxnf99-154Akm [facility] Comment on above:Performed By: #### 40850, 13677 ####[address] [place] [address], USAGlucose mass conc88 mg/dL Outkgn54-067Ybf [facility] SystemComment on above:Performed By: #### 61787, 41997 ####[address] [place] [address], USASMALL BOWELon 81-86-3569NDWDI BOWELUnWooster Community HospitalDepartment of Yparogtmt[address] [place] [id number] Patien t Name: DOROTHY ONEAL : 1965Sex: FAge: Race: WhiteMRN: [id number]. Location: [id number] Status: IVisit #: [id number] Date: 09/15/2017 8:40:00 AMCompleted Date: 09/15/2017 01:11 PMRequesting Provider: LIZZ MUKHERJEE Attending Provider: ESTELA WOMACK Report Copy To: Signs & Symptoms: Abdomen Pain GeneralizedHistory: Patient history not availableComments: Other, small bowel obstruction. please do small bowel follow through with water soluableExam: SMALL BOWELAccession #: [id number] =SMALL BOWEL09/15/2017 1:11 PM EDT SIGNS AND [...] Electronically signed by:Alfredo Feng M.D.. Transcribed by: [email or web address], User Resident: SERVANDO DOUGLASElectronically Signed by: ALFREDO FENG @ 09/15/2017 02:05 PMI personally read this/thesefilm(s) with this residentMemorial Health SystemComment on above:Order Comment: No: Do not add to previous drawBASIC METABOLIC PANELon 49-35-3394Tskrsom0.6 mg/dLNormal8.6-10.3The [facility] SystemComment on above:Order Comment: No: Do not add to previous drawPerformed By: #### 13020, 47552 ####[facility] [place] [address], RIGDeaseivt513 mmol/LNormal 98-107The [facility] SystemComment on above:Order Comment: No: Do not add to previous drawPerformed By: #### 87217, 78560 ####[facility] [place] [address], NIZFN731 mmol/LNormal 21-31The [facility] SystemComment on above:Order Comment: No: Do not add to previous drawPerformed By: #### 48888, 76763 ####[facility] [place] [address], USACreatinine2.01 mg/dLHigh0.60-1.20The [facility] SystemComment on above:Order Comment: No: Do not add to previous drawPerformed By: #### 62540, 24199 ####[facility] [place] [address], [place] eGFR (black)32 ml/min/1.73sq mAbnormal>60The [facility] Comment on above:Order Comment: No: Do not add to previous drawPerformed By: #### 28549, 02026 ####[place] [address] [place] [address], USAeGFR (non-black)26 ml/min/1.73sq mAbnormal>60The [facility] SystemComment on above:Order Comment: No: Do not add to previous drawPerformed By: #### 97393, 92281 ####[facility] [place] [address], USAGlucose mass idvt943 mg/dL Jjyl68-278Pkd [facility] SystemComment on above:Order Comment: No: Do not add to previous drawPerformed By: #### 33758, 77056 ####[facility] [place] [address], USAPotassium molar conc4.0 mmol/LNormal3.5-5.1The [facility] SystemComment on above:Order Comment: No: Do not add to previous drawPerformed By: #### 60274, 34581 ####[address] [place] [address], SVASqbnzr643 mmol/ALffnig017-427Elp [facility] Comment on above:Order Comment: No: Do not add to previous drawPerformed By: #### 78406, 75108 ####[address] [place] [address], [facility] CENTERUrea xeksovrx12 mg/dLNormal7-25The [facility] SystemComment on above:Order Comment: No: Do not add to previous draw Performed By: #### 20980, 00696 ####[address] [place] [address], [facility]ENTERCB COMPLETE BLOOD COUNTon 09-14-2017 Erythrocyte distribution width Auto Ratio (RBC)14.3 %Ninygt75.5-16.9The [facility] SystemComment on above:Order Comment: No: Do not add to previous drawPerformed By: #### 17225, 85465 ####[address] [place] [address], [facility] CENTERErythrocytes (RBC)3.77 mill/nx5Abioxq5.50-5.50The [facility] SystemComment on above: Order Comment: No: Do not add to previous drawPerformed By: #### 70733, 56197 ####[address] [place] [address], [facility] Hematocrit (HCT)34.8 %Low36.0-48.0The [facility] SystemComment on above:Order Comment: No: Do not add to previous drawPerformed By: #### 64426, 25191 ####[address] [place] [address], [facility] CENTERHemoglobin mass conc (Bld)11.3 g/dLLow12.0-15.0The [facility] SystemComment on above:Order Comment: No: Do not add to previous drawPerformed By: #### 83273, 37618 ####[facility] [facility] [address], DPVONW66.8 ujOqxxae75.0-32.0The [facility] SystemComment on above:Order Comment: No: Do not add to previous drawPerformed By: #### 56123, 55880 ####[facility] [facility] [place] [address], [facility] CENTERMCHC mass conc (RBC)32.3 g/fELpmwmf52.0-36.0 The [facility] SystemComment on above:Order Comment: No: Do not add to previous drawPerformed By: #### 58307, 30258 ####[facility] [facility] [place] [address], HBNEAN63.3 fLNormal 80.0-100.0The [facility] SystemComment on above:Order Comment: No: Do not add to previous drawPerformed By: #### 98565, 44936 ####[facility] [place] [address].[place] [address], USAPLAT YWM201 Thou/nw7Htjdtx318-949Guj [facility] SystemComment on above: Order Comment: No: Do not add to previous drawPerformed By: #### 66051, 37529 ####[facility] [facility] [place] [address], [facility] WBC (Leukocytes)11.8 Thou/on9Ztnf6.0-10.0The [facility] Comment on above:Order Comment: No: Do not add to previous drawPerformed By: #### 35666, 63571 ####[facility] [facility] [place] [address], [place] GLUCOSE LABon 65-78-8594Rbiykcc mass conc92 mg/dL Xvpsdi51-767Enf [facility] SystemComment on above:Performed By: #### 76451, 37040 ####[facility] [place] [address], USAGlucose mass iabm460 mg/cLSykn58-612Tdi [facility] SystemComment on above:Performed By: #### 05536, 22546 ####[facility] [place] [address], [place] Glucose mass hehj175 mg/wRIvdr23-199Fuu [facility] Comment on above:Performed By: #### 90410, 61603 ####[facility] [place] [address], [place]AGlucose mass conc93 mg/dL Yeqqer86-963Jlb [facility] SystemComment on above:Performed By: #### [id number] ####[facility] [address], [facility]ALL[facility] INDIAN MEDICAL CENTERAMYLASE BLOODon 05-96-7850Sqarwtz24 Units/ZJanzxi40-717Ukx [facility] SystemComment on above:Order Comment: No: Do not add to previous drawPerformed By: #### [id number], 39338, 39158, 17942 ####[facility] [place] [address], USAAPTTon 80-36-3742aAAA02.3 gEjvtwb90.0-35.0The [facility] Comment on above:Order Comment: No: Do not [...] BE USED FOR THIS PURPOSE.Performed By: #### 06525, [id number] ####[facility] [place] [address], USABASIC METABOLIC PANELon 33-64-2407Enblseh8.7 mg/dL Normal8.6-10.3The [facility] SystemComment on above:Order Comment: No: Do not add to previous drawPerformed By: #### [id number], 29523, 20512, 46186 ####[facility] [place] [address], XTKCjlpmjsj993 mmol/BIdyibs73-607Jrw [facility] Health SystemComment on above:Order Comment: No: Do not add to previous drawPerformed By: #### 69767, 48340, 96559, 47706 ####[facility] [place] [address], JIBCG879 mmol/MMdvlhm98-45Lvv [facility] SystemComment on above:Order Comment: No: Do not add to previous drawPerformed By: #### 28773, 05487, 93159, 67560 ####[facility] [place] [address], USACreatinine2.16 mg/dLHigh0.60-1.20The [facility] Health SystemComment on above:Order Comment: No: Do not add to previous drawPerformed By: #### 58326, 40083, 37396, 63850 ####[facility] [place] [address], USAeGFR (black)29 ml/min/1.73sq mAbnormal>60The [facility] Health SystemComment on above:Order Comment: No: Do not add to previous drawPerformed By: #### 86303, 89650, 72149, 79653 ####[facility] [place] [address], USAeGFR (non-black)24 ml/min/1.73sq mAbnormal>60The [facility] Health SystemComment on above:Order Comment: No: Do not add to previous drawPerformed By: #### 33913, 72474, 17139, 60369 ####[address] [place] [address], [facility] CENTERGlucose mass conc96 mg/eSKlthcn76-669Lnf [facility] SystemComment on above: Order Comment: No: Do not add to previous drawPerformed By: #### 80850, 15617, 05781, 50921 ####[address] [place] [address], [facility] CENTERPotassium molar conc4.3 mmol/LNormal3.5-5.1The [facility] Health SystemComment on above:Order Comment: No: Do not add to previous draw Performed By: #### 68243, 44017, 47996, 34892 ####[address] [place] [address], JJPBwbekp781 mmol/FMzxhld475-803Lrz [facility] SystemComment on above:Order Comment: No: Do not add to previous drawPerformed By: #### 22996, 21641, 72677, 12516 ####[address] [place] [address], USAUrea betfsqyp69 mg/dLNormal7-25The [facility] Health SystemComment on above:Order Comment: No: Do not add to previous drawPerformed By: #### 60110, 79030, 79639, 14724 ####[address] [place] [address], [facility] CENTERCBC W/DIFFon 92-02-4103Levlyechy Auto #/vol (Bld)0.5 %Normal0.0-2.0The [facility] Health SystemComment on above:Performed By: #### 22815 ####[address] [place] [address], [facility] Eosinophils/100 leukocytes1.5 %Normal0.0-5.0The [facility] Health SystemComment on above:Performed By: #### 67436 ####[facility] [facility] [place] [address], [facility] MEDICAL CENTERErythrocyte distribution width Auto Ratio (RBC)14.5 %Macuao10.5-16.9The [facility] Comment on above:Performed By: #### 24709 ####[address] [place] [address], [facility] CENTERErythrocytes (RBC)3.72 mill/mm3 Normal3.50-5.50The [facility] Health SystemComment on above:Performed By: #### 00659 ####[address] [place] [address], [facility] MED[facility] CENTERHematocrit (HCT)34.1 %Low36.0-48.0The [facility] Health SystemComment on above:Performed By: #### 66455 ####[address] [place] [address], [facility] CENTERHemoglobin mass conc (Bld)11.3 g/dLLow12.0-15.0The [facility] Health SystemComment on above:Performed By: #### 79518 ####[place] [address], [facility] CENTERLymphocytes/100 leukocytes7.6 %Low20.0-40.0 The [facility] Health SystemComment on above:Performed By: #### 19151 ####[place] [address], [facility] MCH30.4 hqXgxbue97.0-32.0The [facility] Health SystemComment on above:Performed By: #### 53179 ####[place] [address], [facility] CENTERMCHC mass conc (RBC)33.1 g/hHNpfygq88.0-36.0 The [facility] Health SystemComment on above:Performed By: #### 92998 ####[facility] [place] [address], [facility] MCV91.8 lQPeqifl83.0-100.0The [facility] Health SystemComment on above:Performed By: #### 31858 ####[facility] [place] [address], [facility]ENTERMETHODNormal RBC MorphologyNormalThe [facility] Health SystemComment on above:Performed By: #### 95944 ####[facility] [address], [place] MONOS6.3 %Normal2-8The [facility] Health SystemComment on above: Performed By: #### 20969 ####[facility] [address], [facility] CENTERNeutrophils/100 nrdqbyramm43.1 %Juai96-00Erl [facility] SystemComment on above:Performed By: #### 86862 ####[facility] [address], [place] PLAT RRM935 Thou/sc4Hntvtl620-320Yjp [facility] SystemComment on above:Performed By: #### 95668 ####[facility] [place] [address], [facility] CENTERWBC (Leukocytes)15.5 Thou/pk9Akcl4.0-10.0The [facility] Health SystemComment on above:Performed By: #### 69934 ####[facility] [address], [place] LACTATE BLOODon 42-71-5102Lpsdzrb5.8 mmol/LNormal.5-2.2The [facility] Health SystemComment on above:Order Comment: No: Do not add to previous draw Performed By: #### 20862 ####[facility] [place] [address], USALIPASE BLOODon 75-53-9498Ubfteg69 Units/LZcvbcg82-16Xvk [facility] SystemComment on above:Order Comment: Yes: Add to Previous draw if ablePerformed By: #### 86034, 15345, 86521, 61484 ####[facility] [place] [address], [facility] LIVER BATTERYon 84-16-6479Ayfwzpz aminotransferase (ALT)13 U/LNormal7-52The [facility] Health SystemComment on above:Order Comment: No: Do not add to previous drawPerformed By: #### 85890, 07047, 75500, 47823 ####[facility] [place] [address].[place] [address], USAAlbumin2.5 g/dL Low3.5-5.7The [facility] Health SystemComment on above:Order Comment: No: Do not add to previous drawPerformed By: #### 78537, 13338, 13260, 58859 ####[facility] [place] [address].[place] [address], [place] ALKALINE LVYGRS39 IU/HRhokar49-465Fru [facility] SystemComment on above:Order Comment: No: Do not add to previous drawPerformed By: #### 61996, 04623, 37312, 61375 ####[address] [place] [address], USAAspartate aminotransferase (AST)10 U/TQbf06-28Luf [facility] SystemComment on above:Order Comment: No: Do not add to previous drawPerformed By: #### 10373, 44384, 75798, 23210 ####[facility] [place] [address], USABilirubin (direct)0.1 mg/dLNormal0.0-0.2The [facility] Health SystemComment on above:Order Comment: No: Do not add to previous drawPerformed By: #### 00973, 14548, 10848, 82719 ####[facility] [place] [address], USABilirubin (total)0.4 mg/dLNormal0.3-1.0The [facility] SystemComment on above:Order Comment: No: Do not add to previous drawPerformed By: #### 74061, 00918, 15666, 39313 ####[facility] OKMARYJOGARFIELD [facility] [place] [address], USAProtein6.3 g/dL Normal6.0-8.3The [facility] SystemComment on above:Order Comment: No: Do not add to previous drawPerformed By: #### 93790, 52957, 23910, 11118 ####[address] [facility] [place] [address], [facility] MEDICAL CENTERPOC GLUCOSE LABon 93-87-1889Chziqok mass conc87 mg/mOGgwbyp63-683Woa [facility] SystemComment on above:Performed By: #### 77909 ####[facility] [place] [address], [facility] PROTHROMBIN TIMEon 42-26-5014NVO Coag RelTime (PPP)1.19 {INR}High0.91-1.16The [facility] Health SystemComment on above:Order Comment: No: Do not add [...] ACTION, CLINICALEFFECTIVENESS, AND OPTIMAL THERAPEU TIC RANGE. [id number];108:231S-246S.Performed By: #### 13024, 15405 ####[facility] [facility].[address] Prothrombin time (PT) Coag time (PPP)15.2 sHigh12.3-14.8The [facility] Health SystemComment on above:Order Comment: No: Do not add to previous draw Result Comment: ALL RESULTS MUST BE INTERPRETED WITH RESPECT TO BLOOD DRAWING ARTIFACTOR DILUTION ERROR OF ANTICOAGULANT AT THE TIME OF SAMPLING.Performed By: #### 84459, 09055 ####[facility] [facility].[address] Vital Signs Date TimeVital SignValuePerforming WbzhmoberXtaqlveo41-34-3987 13:45-0400 Diastolic blood mm[Hg]Radha Mosquera MD Work Phone: [facility]10-16-2025 13:45-0400Heart rate70 /minRadha Mosquera MD Work Phone: [facility]10-16-2025 13:45-0400 Respiratory rate18 /minRadha Mosquera MD Work Phone: [facility]10-16-2025 13:45-8683BqR9% (BldA) [Mass fraction]89 %Radha Mosquera MD Work Phone: [facility]10-16-2025 13:45-0400Systolic blood bvyebcpb903 mm[Hg]Radha Mosquear MD Work Phone: [phone]10-16-2025 13:30-0400Body bftswmvsezb51.6 [degF]Radha Mosquera MD Work Phone: [facility]10-16-2025 07:15-0400Body vihzek979.1 Monico Mosquera MD Work Phone: [facility]10-16-2025 07:15-0400Body mass index (BMI) [Ratio]38.77 kg/y9XgypmnbdfsneRadha Mosquera MD Work Phone: [facility]10-16-2025 07:15-0400Body .69 kgRadha Mosquera MD Work Phone: [facility]10-07-2022 13:02-0400Blood Pressure LocationMichael NILL [facility] Qyfvoerm27-23-9338 13:02-0400Diastolic blood pqismsvu24 mm[Hg]Nathan NILL [facility] Eowljtmg10-29-0405 13:02-0400Heart rate 66 /minMichael NILL [facility] Lbhxkkpw55-84-6430 13:02-0400 Respiratory rate16 /minMichael NILL [facility] Owcjinar96-85-3995 13:02-0400Systolic blood paaclhmh370 mm[Hg]Nathan NILL [facility] Hasjyvca78-72-9558 17:00-0400Heart rate 92 /minStv [facility]06-20-2022 17:00-0400Respiratory rate24 /min Stv [facility]06-20-2022 17:00-3404UsF8% (BldA) [Mass fraction]95 %Stv [facility]06-20-2022 15:45-0400Diastolic blood ukjkaosy15 mm[Hg]Stv [facility]06-20-2022 15:45-0400Systolic blood pressure 97 mm[Hg]Stv [facility]06-20-2022 09:44-0400Body jnutkm401.1 cm Stv [facility]06-20-2022 09:44-0400Body mass index (BMI) [Ratio] 33.95 kg/m2Stv [facility]06-20-2022 09:44-0400Body temperature 97.9 [degF]Stv [facility]06-20-2022 09:44-0400Body btqofx98.53 kg Stv [facility] Encounters Encounter DateEncounter TypeCare ProviderFacilityStart: 09-10-2025 End: 21-50-9196xzwsrnayuoFMQWAYFGEEAF [facility]art: 09-10-2025 End: 60-25-9932Wuuflcnavc hospital visit by Dorita Mosquera MD Work Phone: [facility] Cardiac Cath/EP LabComment on above:Atrial fibrillation, unspecified type (HCC)Start: 08-18-2025 End: 50-33-8730hxlkmhmoliTBSVPYMEERLW [facility]ertart: 08-18-2025 End: 08-36-1017Hwrmzctqsg hospital visit by Dorita Mosquera MD Work Phone: [facility] CT ScanComment on above: Persistent atrial fibrillation (HCC)Start: 55-34-4700hcenpkjqnfBWDDLAJQXKEJ [facility]ertart: 06-08-2025 End: 81-34-1339ooolxmvgwpMVKHTMNWW [facility] Work Phone: Start: 06-08-2025 End: 43-26-7236Xdkaurlo Abhijit Rojas MD-Lab Main [place] Work Phone: Start: 05-25-2025 End: 54-15-6561hhpmcmukedJPZGCritical access hospital HospitalStart: 05-25-2025 End: 79-78-6622Jdephoietv hospital visit by Ursula Musa MD Work Phone: [facility] Vascular LabComment on above: Bilateral carotid artery stenosisStart: 05-23-2024 End: 91-24-4545Blzdeimzbq hospital visit by Ursula Musa MD Work Phone: [facility] Vascular LabComment on above: Bilateral carotid artery stenosisStart: 99-58-2860Jembvbxxoz and management of inpatientKettering Health Behavioral Medical Centertart: 04-24-2024 End: 57-64-7477Meubuzjecq and management of inpatientKettering Health Behavioral Medical Centertart: 01-25-2024 End: 12-15-2738Isltazaidy hospital visit by Ursula Jc MD Work Phone: [facility] Nuclear MedicineComment on above: ArrivedStart: 01-24-2024 End: 27-49-7905Yezvdjooye hospital visit by Ursula Jc MD Work Phone: [facility] Non-Invasive CardiologyComment on above:ArrivedStart: 03-26-2023 End: 10-40-4393mtwkltwgbfHN CARY HOY .Facility:B9Nvpej: 02-21-2023 End: 24-86-7192utvqxizhunUE CARY HOY .Facility:Q3Kckhb: 02-01-2023 End: 87-20-6271tkicshlotsXJ CARY HOY .Facility:F5Zgsru: 12-01-2022 End: 11-98-4702aarftgflmdRR CARY HOY .Facility:R8Ezgxm: 10-26-2022 End: 96-38-1263exyrphvcsbXHEEVDNCWayne HealthCare Main Campustart: 10-09-2022 End: 20-08-3987thfbldktimNEVJNSIGWayne HealthCare Main Campustart: 10-04-2022 End: 72-15-0603iiuytnuctxZuzstmx R NILLFacility: ueStart: 09-01-2022 End: 96-44-8994mxbboyitovEoqbqox R NILLFacility:[facility] CenterevueStart: 09-01-2022 End: 99-31-7307Vimxfhh encounter procedureMichael R NILL General Surgery Nill/Said Chin Start: 08-28-2022 End: 86-28-8756nnnzbfxfqoZE CARY BENTON .Facility:L9Ylxhi: 38-91-2900oeccufnbfe Nathan R NILLFacility:[facility] CenterueStart: 30-38-1069kuwqftdeafFudlsrm R NILL Facility:[facility]ueStart: 05-15-2022 End: 61-12-3109Yxwzclehdb hospital visit by Tamara Compugraph Operator ASTKemar Cath LabComment on above:ArrivedStart: 04-27-2022 End: 34-69-3896Ipimqubify and management of inpatientDR CARY BENTON .Facility: Start: 03-27-2022 End: 88-36-4289Zylxpqlppz hospital visit by Sanket Benton MD Work Phone: mthz LaboratoryStart: 03-18-2022 End: 39-19-9853Gnxsiasudp hospital visit by Sanket Benton MD Work Phone: mthz LaboratoryStart: 09-13-2017 End: 37-72-7409Rlrvczkqlp and management of inpatientSCELSO WOMACK Facility:[facility] Procedures DateProcedureProcedure DetailPerforming ClinicianStart: 09-10-2025 End: 29-84-3062Bcwft of haptoglobin quantitativeCharuchi Mosquera MD Work Phone: Start: 00-99-3756ZABTJJTE SPECIMENCharuchi Mosquera MD Work Phone: Start: 87-37-0185BOSUZHQDLREVGDEMF PROCEDURE Radha Mosquera MD Work Phone: Start: 43-65-9351DKDZCCLF VASCULAR PROCEDURE Radha Mosquera MD Work Phone: Start: 07-83-7022Pdzptcztdqv time activated Radha Msoquera MD Work Phone: Start: 09-10-2025 End: 67-17-7005Wobqyuyijek time activatedRadha Mosquera MD Work Phone: Start: 11-30-7995Jiwlhexv [Moles/volume] in Serum or PlasmaRadha Mosquera MD Work Phone: Start: 16-23-7860MGIJTFKABJ W/GFR POINT OF CARE Radha Mosquera MD Work Phone: Start: 09-10-2025 End: 10-80-7522Rzlr bld gluc mntr dev cleared fda spec home useRadha Mosquera MD Work Phone: Start: 87-27-8973Btkbtylhf [Moles/volume] in Serum or PlasmaRadha Mosquera MD Work Phone: Start: 79-86-8270Ixgjzf [Moles/volume] in Serum or PlasmaRadha Mosquera MD Work Phone: Start: 98-78-5382Vjp routine ecg w/least 12 lds w/i&r Radha Mosquera MD Work Phone: Start: 70-61-0109Vqk hrt cornry art/bypass grfts contrst 3d postChandlee ann Mosquera MD Work Phone: Start: 53-33-4949FUSKBWVJUX W/GFR POINT OF CARE Radha Mosquera MD Work Phone: Start: 53-74-7465Vvospa scan extracranial art compl bi studyLuna Musa MD Work Phone: start: 33-48-6840Tpmoir scan extracranial art compl bi studyLuna Musa MD Work Phone: start: 42-53-6507Rrqwcjihij spect multiple studiesLuna Jc MD Work Phone: Start: 06-52-8244Aqgwiyl of placement of stent for coronary artery diseaseH/O heart artery stentLuna Jc MD Work Phone: Start: 14-48-7092EzuyggtsjqoiftyhklunoucpHFHDTXPU DALY Start: 98-10-1636Ayhbxbrqywu time activatedFabrice Ayala MD Work Phone: Start: 15-14-7940Slcibls catheterizationFabrice Ayala MD Work Phone: Start: 75-44-4416Mknzzlci [Moles/volume] in Serum or PlasmaFabrice Ayala MD Work Phone: Start: 54-15-8859FMXDZHRADZ W/GFR POINT OF CAREFabrice Ayala MD Work Phone: Start: 05-15-2022 End: 63-77-2722Rkrc bld gluc mntr dev cleared fda spec home useFabrice Ayala MD Work Phone: Start: 02-26-4652Modopjwbk [Moles/volume] in Serum or PlasmaFabrice Ayala MD Work Phone: Start: 16-49-0655Wqljjd [Moles/volume] in Serum or PlasmaFabrice Ayala MD Work Phone: Start: 72-54-3138Dnqrv metabolic panel calcium total Americkar Lucy BRIONES Work Phone: Start: 73-99-0910Lkgcz metabolic panel calcium total Amdamir Ayala MD Work Phone: Start: 23-24-5591Dadnq panelFabrice Ayala MD Work Phone: Start: 09-50-7860Wkjzduxcs of stent in cardiac conduit Nathan NILL Start: 64-94-7968XURKYLBF OF ABD SUBCU/FASCIA, OPEN APPROACHSTEPHANIE Dann WOMACKStart: 23-96-9098Yhugtutcf of stent in cardiac conduitMichael NILL Start: 63-74-4293Ktjkgasa sectionMichael NILL Start: 22-61-9557Kuzrenff sectionMichael NILL Abscess of breast (disorder)Nathan NILL Amputation of toeMichael NILL Decompression of median nerveMichael NILL Large intestine excisionMichael NILL Lumbar spinal fusionMichael NILL Repair of incisional herniaMichael NILL Tonsillectomy and adenoidectomyMichael NILL Plan of Treatment DateCare ActivityDetailAuthorStart: 54-01-3203BCB test (Diabetes, CKD 3-4, OR last GFR 15-59)GFR test (Diabetes, CKD 3-4, OR last GFR 15-59)Mekhi BarkerKettering Health MiamisburgStart: 06-02-2026 End: 04-38-2415Ghzjnhs encounter vdfhoqyno22/08/2026 10:00 AM EDT Office Visit [facility] Part [address] [place] [address] Luna Musa MD [address] [place] [address] [address] [place] [address] Bilateral Carotid artery stenosis; 1year follow up with [facility]ascular duplexGAL[facility] Part of [facility] HospitalComment on above:Bilateral Carotid artery stenosis; 1 year follow up with Vascular duplexStart: 09-10-2025 End: 95-80-8275Rwwousgnc to same day surgery ladkmk4409/10/2025 7:30 AM EDT - 09/10/2025 10:30 AM EDT Surgery [facility] Cardiac Cath/EP Lab [address] [place] [address] Radha Mosquera MD [address] [address] moisés / Ablation A-fib w/anes / cartoCommunity [facility] Medical Center Cardiac Cath/EP LabComment on above:moisés / Ablation A-fib w/anes / cartoStart: 93-15-4613Oyutqyixnu hospital visit by /16/2025 7:30 AM EDT Hospital Encounter [facility] Cardiac Cath/EP Lab [facility] [place] [address] Radha Mosquera MD [address] [address] Atrial fibrillation, unspecified type (HCC)[facility] Cardiac Cath/EP Lab Comment on above:Atrial fibrillation, unspecified type (HCC)Start: 07-27-2025 COVID-19 Vaccine ( season)COVID-19 Vaccine ( season)[facility]: 83-39-6708Qgyeljmvk vaccinationFlu vaccine (#1)[facility]: 06-12-2025 End: 90-13-9912Poyvyit encounter zloxmazgl89/18/2025 10:00 AM EDT Office Visit [place] [employer] [facility] [place] [address] [place] [address] Jeff Carlos DO [address] Vanessa V[address]as [address] [address] 6 mo fuToledo Printing And Stamping Supervisor - MonroeComment on above:6 mo fuStart: 06-03-2025 End: 95-93-3643Soezjuw encounter etbwtybov68/09/2025 11:45 AM EDT Office Visit [facility] [address] [place] [phone] Luna Musa MD [address] [place] [phone] PATRICIA follow up-UltrasoundGAL[facility]OS[facility] V[facility] Sharon HospitalComment on above:PATRICIA follow up-UltrasoundStart: 84-10-5298CDZ test (Diabetes, CKD 3-4, OR last GFR 15-59)GFR test (Diabetes, CKD 3-4, OR last GFR 15-59)[facility]Start: 50-87-8071ZFV test (Diabetes, CKD 3-4, OR last GFR 15-59)GFR test (Diabetes, CKD 3-4, OR last GFR 15-59)[facility]: 11-05-2024 End: 80-40-1235Sbmgaeu encounter ocneqyvao62/11/2024 9:45 AM EST Office Visit [facility] [address] [place] [address] Luna Musa MD [address] [place] [address] [address] [place] [phone] 6 mth carotid stentKing's Daughters Medical Center OhioComment on above:6 mth carotid stentStart: 83-31-7687Xnfyydukef A1c hqoaruaaegmU5P test (Diabetic or Prediabetic)[facility]: 09-16-2024 End: 87-24-1399Smoqutr encounter gxaiglghu15/22/2024 11:30 AM EDT Office Visit [place] [employer] - [address] [address] Luna Jc MD [facility] [address] 6 [place] F/UToledo Printing And Stamping Supervisor - TiffinComment on above:6 [place] F/UStart: 83-95-5175KNOGZ-19 Vaccine ( season)COVID-19 Vaccine ( season)[facility]art: 55-50-5225Iecimhzbw vaccinationFlu vaccine (Season Ended)[facility]: 49-75-6581Mhqtjs Wellness Visit (Medicare)Annual Wellness Visit (Medicare)[facility]ENTERStart: 03-73-4914Nrhety Wellness Visit (Medicare)Annual Wellness Visit (Medicare)[facility]: 02-96-1277KSOBP-19 Vaccine ( season)COVID-19 Vaccine ()[facility]: 38-24-7776Ordbxggpj vaccinationFlu vaccine (#1)[facility]: 39-52-7030Cequjvcfbw measurementCreatinine [facility] Centerart: 45-02-9952Jyruo panelLipidsTrihealthStart: 03-18-2023 Potassium [Moles/volume] in Serum or PlasmaPotassiumTrihealthStart: 11-08-2022 End: 94-65-1850Ynblfow encounter wwgkfxyky84/14/2022 Office Visit Vascular Surgery Luna Musa MD [address] [place] [address] [address] [place], [id number] [facility] Part of [facility] HospitalStart: 97-38-7371Vzrrjkgix vaccinationFlu vaccine (Season Ended) [facility]: 89-21-8684Jgkhdzppp for malignant neoplasm of breastBreast cancer screenTrihealthStart: 50-05-4742Sjxhvrzj Vaccine (1 of 2)Shingles Vaccine (1 of 2)[facility]healthStart: 60-92-3200Dnekkoiwa for malignant neoplasm of colonTrihealthStart: 28-95-8259Xwzwvzehv for malignant neoplasm of breast Breast cancer screenBON [facility] CENTERStart: 61-15-1740Jviuyloxv for malignant neoplasm of cervixTrihealthStart: 44-30-7295Qqugxfyjx for malignant neoplasm of cervixPap smearMercy Health [facility]field Hospital: 53-39-6209TYpW/Tdap/Td vaccine (1 - Tdap)DTaP/Tdap/Td vaccine (1 - Tdap)[facility]: 35-65-9257Nrvukagpr B vaccine (1 of 3 - 19+ 3-dose series)Hepatitis B vaccine (1 of 3 - 19+ 3-dose series)[facility]: 02-62-8077Apogtmfapzvm 50+ years Vaccine (1 of 2 - PCV)Pneumococcal 50+ years Vaccine (1 of 2 - PCV)[facility]: 76-80-5085Cxdqxanf screeningDiabetic retinal examBON [facility]: 96-87-7115Tpnnuarhp C screeningHepatitis C [facility]: 89-53-2948Rebwk screening for proteinDiabetic Alb to Cr ratio (uACR) testBON [facility]: 34-29-8535CIC screeningHIV screenMercy Health Fairfield Hospital: 07-92-3471Lbvhglihmy ScreenDepression ScreenMercy Health Fairfield Hospital: 1975 Diabetic foot examinationDiabetic foot examBON [facility]: 85-81-9857Aqbhd panelLipidsMercy Health Fairfield Hospital: 84-33-6610Qcseabdkwfsh 0-64 years Vaccine (1 - PCV)Pneumococcal 0-64 years Vaccine (1 - PCV)[facility]: 09-12-3830Jgoeuihxqcgf 0-64 years Vaccine (1 of 2 - PCV)Pneumococcal 0-64 years Vaccine (1 of 2 - PCV)[facility]: 01-27-4867Gukwwkpun B vaccine (1 of 3 - 3-dose series)Hepatitis B vaccine (1 of 3 - 3-dose series)[facility] End: 97-33-9141Enpvx metabolic 2000 panel - Serum or PlasmaBasic Metabolic Panel Lab Routine One Time for 1 Occurrences starting 05/15/2022 until 05/15/2022[facility] Work Phone: comment on above:One Time for 1 Occurrences starting 05/15/2022 until 05/15/2022 End: [id number] panel - Blood by Automated countCBC Lab Routine One Time for 1 Occurrences starting 05/15/2022 until 05/15/[address] Work Phone: comment on above:One Time for 1 Occurrences starting 05/15/2022 until 05/15/2022 End: 96-80-7522RLF W Auto Differential panel - BloodCBC with Auto Differential Lab Routine One Time for 1 Occurrences starting 09/10/2025 until 09/10/2025 [employer] on above:One Time for 1 Occurrences starting 09/10/2025 until 09/10/2025 End: 68-70-1159Ocauugclaydpa Metabolic Panel w/ Reflex to MGComprehensive Metabolic Panel w/ Reflex to MG Lab Routine One Time for 1 Occurrences starting 09/10/2025 until 09/10/2025 [facility] on above:One Time for 1 Occurrences starting 09/10/2025 until 09/10/2025 End: 37-75-4861Len hrt cornry art/bypass grfts contrst 3d postCTA CORON EJECT FRAC WALL MOTION Imaging Routine Persistent atrial fibrillation (HCC) 1 Occurrencesstarting 08/18/2025 until 08/18/2025 [employer] on above:1 Occurrences starting 08/18/2025 until 08/18/2025EKG 12 LeadEKG 12 Lead ECG STAT 09/10/2025 6:35 AM [facility] PreedoElectrophysiology procedureElectrophysiology procedure CV Electrophysiology Routine Atrial fibrillation, unspecified type (HCC) 09/10/2025 [facility] End: 31-87-6474EkbpenfipxrAfveuiaetxk Lab Routine One Time for 1 Occurrences starting 09/10/2025 until 09/10/2025 [employer] on above:One Time for 1 Occurrences starting 09/10/2025 until 09/10/2025 End: 45-34-3659ZVMIQLHLRW FREE, PLASMABon [employer] on above: One Time for 1 Occurrences starting 09/10/2025 until 09/10/2025 End: 16-88-2168ZEZQFUXJ PACU OXYGEN THERAPY PROTOCOLInitiate PACU Oxygen Therapy Protocol Respiratory Care Routine Continuous until discontinued starting 09/10/2025 [employer] Phone: comment on above:Continuous until discontinued starting 09/10/2025Invasive vascular procedureInvasive vascular procedure CV Invasive Vascular Routine Atrial fibrillation, unspecified type (HCC) 09/10/2025 11:00 [facility] Preedo End: 74-76-3590Oqxnavk dehydrogenase [Enzymatic activity/volume] in Serum or PlasmaLactate Dehydrogenase Lab Routine One Time for 1 Occurrences starting 09/10/2025 until 09/10/2025 [employer] on above:One Time for 1 Occurrences starting 09/10/2025 until 09/10/2025Oxygen therapy [Minimum Data Set]Initiate Oxygen Therapy Protocol Respiratory Care Routine As Needed until discontinued starting 05/15/2022 See[employer] Phone: Comment on above:As Needed until discontinued starting 05/15/2022xygen therapy [Minimum Data Set]Initiate Oxygen Therapy Protocol Respiratory Care Routine As Needed until discontinued starting 09/10/2025 [employer] on above:As Needed until discontinued starting 09/10/2025 End: 94-75-5599ZKT CHEMISTRY (NA,K,ICA,GLU,CALC HCT/HGB,LACTATE,CREA,CL)POC CHEMISTRY (NA,K,ICA,GLU,CALC HCT/HGB,LACTATE,CREA,CL) Point of Care Testing STAT One Time for 1Occurrences starting 05/15/2022 until 05/15/2022 [employer] Phone: comment on above:One Time for 1 Occurrences starting 05/15/2022 until 05/15/2022 End: 48-36-7180KqdsplpodgfbtKqhmjxuxwuwqw Lab Routine One Time for 1 Occurrences starting 09/10/2025 until 09/10/2025 [employer] on above:One Time for 1 Occurrences starting 09/10/2025 until 09/10/2025 End: 73-26-9421EwycsuoeavJdt [employer] on above:One Time for 1 Occurrences starting 09/10/2025 until 09/10/2025 Payers DatePayer CategoryPayerPoly [id number]-[id number] 2.16.840.1.969972.3.57[id number] 2.16.840.1.967574.3.57[id number] 2.16.840.1.760833.3.57[id number] 2.16.840.1.940674.3.57[id number] 2.16.840.1.629112.3.57[id number] 2.16.840.1.403448.3.57[id number] 2.16.840.1.017448.3.57[id number] 2.16.840.1.526244.3.57[id number] 2.16.840.1.761645.3.57[id number] 2.16.840.1.425978.3.57[id number] 2.16.840.1.731164.3.57[id number] 2.16.840.1.345838.3.57[id number] 2.16.840.1.814071.3.57[id number] 2.16.840.1.690618.3.579.2.175 [id number] 1960Private Health [id number] 1.2.840.306897.1.13.239.2.7.3.597103.315Unknown [id number] 2.16.840.1.827268.3.579.2.531 Social History DateTypeDetailFacilityStart: 11-30-2021 End: 69-26-2657Gyjgzla smoking status NHISSmokes tobacco dailyPromedica Memorial HospitalRealtime Games Phone: History of tobacco useCigarette SmokerPromedica Memorial HospitalRealtime Games Phone: start: 11-30-2021 End: 86-96-2414Irboelbphu smoked current (pack per day) - Gesefpqk6GCN Investor's CircleStart: 11-30-2021 End: 75-58-7721Kevphqk use and exposureSmokeless tobacco non-userPromedica Memorial HospitalRealtime Games Phone: start: 11-30-2021 End: 07-64-3644Dglkldh intakeLifetime non-drinker (finding)[employer] Phone: start: 41-83-7190Edr Assigned At BirthNot on fileOlah-Viq Software Solutions Work Phone: start: 74-95-3595Qscnnku smoking statusHeavy tobacco smoker (finding)[facility] Surgery BellevueTobacco smoking statusNeverGeneral Surgery BellevueStart: 01-07-2024 End: 83-67-1640Hjq Assigned At BirthFemaleGeneral Surgery [place] Start: 70-65-0880Vnmqrlvln13XJE Investor's Circle Start: 02-82-6680TraSxywug (finding)[facility] CenterTrans Tasman ResourcesTobacco smoking status NHISUnknown if ever smokedSelect Medical Cleveland Clinic [facility] Work Phone: Start: 15-43-7313Tui Assigned At [facility] Hospitaltart: 05-77-3574Dmtlfj identityIdentifies as female gender (finding)[facility] HospitalStart: 36-65-1487Mkyxrx orientation Heterosexual (finding)[facility] Functional Status JdoxUvhgtlurzkOwjfmjPobhmagj12-83-1914Zxihbaxnbx StatusN/AGeneral Surgery [place] Clinical Notes 05-15-2022 to 09-10-2025 Note Date & ZvyoPxtyMerasjdz64-80-0297 History of Present illness Narrative* Daniela Disla [...] 2 of 2. B/L Groin clipped with senior writer and Halima RN present. Family at bedside with patient. History and physical complete. documented in [facility] encounter[facility] Discharge instructions* Discharge Instructions* Daniela Disla [...] Where can you learn more? Go to [email or web address] and sign in to your [employer] account. Enter N533 in the Search Health Information box to learn more about Learning About Catheter Ablation for Heart Problems. If you do not have an account, please click on the Sign Up Now link. [employer]. Care instructions adapted under license by [employer]. This care instruction is for use with your licensed healthcare professional. If you have questions about amedical condition or this instruction, always ask your healthcare professional. [employer] disclaims any warranty or liability for your use of this information. Content Version: 11.0.194036; Current as of: December 22, 2015 Premature [...] taking more than one drug. This includes ilxe-llh-mmadail medicine and herb or dietary supplements. Plan [...] otherwise instructed. documented in this encounterBon [facility]02-29-20[facility] History of Present illness Narrative* Carmen Still RN - 01/24/2024 8:30 AM EST Instructed on objectives and procedure of lexiscan/cardiolite stress test. documented [facility] NoteNeurosurgery Consult Chief Complaint: Back and leg [...] status: Every Day Packs (more content not included)...[facility] 09-01-2022 NoteChief Complaint consultation for skin lesion [...] sulfa drugs (Unknown) Social (more content not included)...[facility] HospitalComment on above:Result Comment: Electronically Signed By: KOSTA BRIONES, Nathan Carreon.shalonda\Date and Time Signed: 09/01/22 13:30 [id number] History of Present illness Narrative* Jen Reid [...] 12:45 PM EDT Received post procedure to [facility] to room 8. Assessment obtained. Restrictions [...] and physical complete. documented in this encounterB[facility] [employer] Work Phone: [phone] 448-206106-20-2022 Hospital Discharge instructions* Instructions* Jen Reid RN [...] Where can you learn more? Go to [email or web address] and sign in to your Ster[employer]Climb account. Enter C643 in the Search Health [...] SCRIPT GIVEN [x] WERE MEDS RECONCILED, WAS [employer] INFORMATION ON MEDS GIVEN TO PT. [x] PRINT DISCHARGE MED LIST CHECK AVS FOR CURRENT MEDS [x] WAS STENT CARD GIVEN TO PT. documented in this encounterPROVIDENCE BEHAVIORAL HEALTH HOSPITALTruClinic [facility] Work Phone: evaluation + Plan note Future Appointments Appointment Date:09/20/2022 03:20:00 PM Scheduled Provider:Nathan BRAMBILA MD Location:[facility] Appointment Type: Procedure 30 [facility] [place] evaluation note* Diagnosis Bilateral carotid artery stenosis Occlusion and stenosis of multiple and bilateral precerebral arteries without mention of cerebral infarction documented in this encounter [facility] HOSPITALSustain360ShorePoint [facility] note* Diagnosis Bilateral carotid artery stenosis Occlusion and stenosis of multiple and bilateral precerebral arteries without mention of cerebral infarction documented in this encounter [facility] CenterIntelligent Data Sensor DevicesNorthwest Florida Community Hospital noteNo assessment information available [facility] Work Phone: Evaluation note* Diagnosis Atrial fibrillation, unspecified type (HCC) Persistent atrial fibrillation (HCC) Atrial fibrillation Atrial fibrillation, unspecified type (HCC) documented in this encounter [facility] CenterIntelligent Data Sensor DevicesNorthwest Florida Community Hospital note* Diagnosis Atrial fibrillation, unspecified type (HCC) Typical atrial flutter (HCC) Atrial flutter Persistent atrial fibrillation (HCC) Atrial fibrillation Atrial fibrillation, unspecified type (HCC) documented in this encounter [facility] CenterIntelligent Data Sensor DevicesStaten Island University Hospital course Narrative No data available for this section [facility] Discharge instructions No data available for this section General Surgery [place] Progress note No data available for this section General Surgery [facility] Reason for referral (narrative)No reason for referral information availableChildren'S Hospital For Rehabilitation Work Phone: Reason for visit Narrative* Auth/CertSpecialty Diagnoses / ProceduresReferred By ContactReferred To Contact [facility] HOSPITALSustain360[facility] [address] [place] [address] Referral IDStatusNoteStart DateExpiration DateVisits RequestedVisits [id number] [facility] ShopCity.comHOL[facility]ER [facility] Work Phone: reason for visit Narrative* Imaging (Routine) - Pending ReviewSpecialtyDiagnoses / ProceduresReferred By ContactReferred To Contact Diagnoses Bilateral carotid artery stenosis Procedures Vascular duplex carotid bilateral Luna Musa MD [address] [place] [address] [place] [phone] Phone: tel: fax: Referral IDStatusReasonStart DateExpiration DateVisits RequestedVisits [id number] Review/ [facility] CenterWave Technology Solutions [facility] [place] for visit Narrative* Imaging (Routine) - Open SpecialtyDiagnoses / ProceduresReferred By ContactReferred To ContactRadiology Diagnoses Persistent atrial fibrillation (HCC) Procedures CTA CORON EJECT FRAC WALL MOTION Radha Mosquera MD [address] [facility] [address] [place] [address] Phone: tel: fax: Referral IDStatusReasonStart DateExpiration DateVisits RequestedVisits [id number]/27/20258/ [facility] CenterIntelligent Data Sensor DevicesReplaced by [facility] for visit Narrative* Auth/CertSpecialtyDiagnoses / ProceduresReferred By ContactReferred To Contact Diagnoses Atrial fibrillation, unspecified type (HCC) Procedures OK COMPRE EP EVAL ABLTJ ATR FIB PULM VEIN ISOLATION moisés / Ablation A-fib w/anes / carto Radha Mosquera MD [address] [facility] [address] [place] [address] Phone: tel: fax: [facility] [address] [place] [address] Referral IDStatusReasonStart DateExpiration DateVisits RequestedVisits [id number] [facility] Summary Purpose Family History No Family [...] InactivatedComments12/06/2023 7:47 AM 12/06/2023 7:03 PMDate ActivatedDate JjcaodslnrxWvxbbadf65/22/2023 7:01 PM 10/24/2023 7:09 PMDate ActivatedDate InactivatedComments05/15/2022 9:19 AM 05/16/2022 2:39 AM Advance Directive Response Recorded Date/ Time Advance Directives No June 09 11:24am Date ActivatedDate FwnegrfknftFxntcgkr80/16/2025 7:01 AMDate ActivatedDate InactivatedComments12/06/2023 7:47 AM12/06/2023 7:03 PMDate ActivatedDate XkhazgykqolGdgaetie96/22/2023 7:01 PM10/24/2023 7:09 PMDate ActivatedDate InactivatedComments05/15/2022 9:19 AM05/16/2022 2:39 AM Reason for Referral SpecialtyDiagnoses / ProceduresReferred By ContactReferred To Contact Diagnoses Bilateral carotid artery stenosis Procedures Vascular duplex carotid bilateral Luna Musa MD [address] [place] [address] [address] [facility] [place] [address] Referral IDStatusReasonStart DateExpiration DateVisits RequestedVisits [id number]/[id number]/12/202511 Chief Complaint and Reason for Visit Chief Complaint Admit Date 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 June 08, 2025 9:50am Additional Source Comments INFORMATION SOURCE (unrecogn ized section and content) DATE CREATED AUTHOR 05/21/2018 [facility] DATE CREATED AUTHOR AUTHOR'S ORGANIZ ATION 08/28/2022 [facility] DATE CREATED AUTHOR AUTHOR'S ORGANIZ ATION 10/05/2022 [facility] DATE CREATED AUTHOR AUTHOR'S ORGANIZ ATION 10/27/2022 [facility] DATE CREATED AUTHOR AUTHOR'S ORGANIZ ATION 04/06/2023 [facility] DATE CREATED AUTHOR AUTHOR'S ORGANIZ ATION 04/26/2024 [facility] DATE CREATED AUTHOR AUTHOR'S ORGANIZ ATION 05/30/2025 [facility] DATE CREATED AUTHOR AUTHOR'S ORGANIZ ATION 06/19/2025 [facility] DATE CREATED AUTHOR AUTHOR'S ORGANIZ ATION 09/13/2025 [facility] Care Teams (unrecognized sec tion and content) Team MemberRelationshipSpecialtyStart DateEnd Date Cary Benton MD [address] [place] [phone] PCP - General01/31/16Team MemberRelationshipSpecialtyStart DateEnd Date Cary Benton MD [address] [place] [address] [phone] PCP - General01/31/16Team MemberRelationshipSpecialtyStart DateEnd Date Cary Benton MD [address] [place] [address] PCP - General01/31/16Team MemberRelationshipSpecialtyStart DateEnd Date Cray Benton MD [address] [place] [address] PCP - General01/31/16Team MemberRelationshipSpecialtyStart DateEnd Date Cary Benton MD [address] [place] [address] PCP - General01/31/16Team MemberRelationshipSpecialtyStart [place] [address] [place], [place] [phone] PCP - General01/31/16Team MemberRelationshipSpecialtyStart [place] [address] [place] [address] PCP - General01/31/16 Team Status: Active Member Role Status Dates PHYSICIAN NO FAMILY Primary Care Provider Active Team Status: Inactive Member Role Status Dates Rojelio Rojas MD Attending Provider Active Start: June 08, 2025 End: June 08, 2025PHYSICIAN NO FAMILYPrimary Care ProviderActiveStart: June 08, 2025 End: June 08, 2025Team MemberRelationshipSpecialtyStart DateEnd Date Cary Benton MD [address] [place] [address] PCP - General01/31/16Team MemberRelationshipSpecialtyStart DateEnd Date Cary Benton MD [address] [place] [address] PCP - General01/31/16 Ordered Prescriptions (unrec ognized [...] heart artery stent Coronary artery disease of [place] artery of [place] heart with stable angina pectoris (HCC) Z95.5 (ICD-10-CM) - H/O heart artery stent Procedures Nuclear stress test with myocardial perfusion CHG MYOCARDIAL SPECT MULTIPLE STUDIES 42319 - CHG MYOCARDIAL SPECT MULTIPLE STUDIES Luna Jc MD [address] [address] Referral IDStatusReAthens-Limestone Hospital DateExpiration DateVisits RequestedVisits [id number] / Procedures Referred By ContactReferred To Contact Diagnoses Bilateral carotid artery stenosis Procedures Vascular duplex carotid bilateral Luna Musa MD [address] [place] [address] Referral IDStatusCar[facility] DateExpiration DateVisits RequestedVisits [id number]/12/20246/ Goals (unrecognized section and content) Goals may [...] BE BASED ON THE PRIMARY CLINICAL RECORDS. [facility] [employer] [facility]. provides no warranty or guarantee of the accuracy or completeness of information in this document.
== END 2025-10-29 10:01 | disposition home or self-care (01) ==
LOC: MAMMO 10:00
PROVIDERS: PCP Family Medicine; Visit Provider Family Medicine
DX: Z12.31 Encounter for screening mammogram for malignant neoplasm of breast (principal)
CPT/HCPCS: 77063; 77067